=== PATIENT | male | born 1960 | race Caucasian/White ===

== ENCOUNTER → 2018-11-20 12:25 | Outpatient (CLI) | payer OTHER, SELFPAY ==
[2018-09-09 14:01] VITALS: BMI 31.0
[2018-11-20 13:02] LABS: Absolute Lymphocyte Count 8.08 X10^3/uL (0.83-4.51); Absolute Neutrophil Count 4.7 X10^3/uL (2.0-7.7); Basophil# 0.16 X10^3/uL; Eosinophil# 0.98 X10^3/uL; Eosinophils% 6.4 % (0-5); Hematocrit 40.1 % (40-54); Hemoglobin 13.7 g/dL (13.0-16.5); Lymphocyte # 8.08 X10^3/ul (4.0); Lymphocyte % 52.5 % (19-41); Mean Corp Hgb Conc 34.2 g/dL (32-36); Mean Corpuscular Hgb 30.9 pg (27.0-32.0); Mean Corpuscular Volume 90.3 fL (80-94); Monocyte# 1.45 X10^3/uL; Monocyte% 9.4 % (0-10); NRBC Flagged by Analyzer 0 % (0-5); Neutrophil # 4.68 X10^3/uL (2.7-7.7); Neutrophil % 30.4 % (47-70); POSITIVE DIFFERENTIAL YES; POSITIVE MORPHOLOGY YES; Platelet Count 406 K/mm3 (150-450); RBC Distribution Width CV 12.6 % (11.6-14.6); RBC Distribution Width SD 41.8 fl (35.1-43.9); Red Blood Count 4.44 M/mm3 (4.6-6.2); White Blood Count 15.4 K/mm3 (4.4-11.0)
[2018-11-20 13:03] LABS: Differential Indicated SCAN CRITERIA MET
[2018-11-20 13:30] LABS: Microalbumin,Random Urine 5.9 mg/L (NO RANGE EST.); Microalbumin:Creatinine Ratio 11.8 mg/g CRE (<30 mg/g CRE)
[2018-11-20 13:52] LABS: Platelet Estimate ADEQUATE (ADEQ); Reactive Lymphocyte 1+
[2018-11-20 13:53] LABS: Red Cell Morphology NORM C+C NORMAL (NORM C&C)
[2018-11-20 14:02] LABS: ALB/GLOB Ratio 1.1 RATIO (0.9-2.4); AST(SGOT) 19 U/L (15-37); Alanine Aminotransfer ALT/SGPT 32 U/L (16-61); Albumin, Serum 3.8 g/dL (3.2-5.0); Alkaline Phosphatase 87 U/L (45-117); Anion Gap 8 (5-15); BUN 13 mg/dL (7-18); BUN/Creat Ratio 16.4 RATIO (10-20); Calcium,Total 9.2 mg/dL (8.5-10.1); Chloride 105 mmol/L (98-107); Cholesterol 281 mg/dL (200); Creatinine, Serum 0.79 mg/dL (0.70-1.30); EST Glomerular Filtration Rate 107 mL/min (>60); Est Glom Filt Rate - Afr Amer 129 mL/min (>60); Globulin 3.6 g/dL (2.2-4.2); Glucose 159 mg/dL (74-106); High Density Lipoprotein 44 mg/dL; Potassium 3.8 mmol/L (3.5-5.1); Protein, Total 7.4 g/dL (6.4-8.2); Rheumatoid Factor < 10.0 IU/mL (<15); Sodium Level 138 mmol/L (136-145); Triglycerides 668 mg/dL
[2018-11-23 12:17] LABS: Pathologist Review Reviewed
== END ==
PROVIDERS: Family Provider Internal Medicine; PCP Internal Medicine; Referring Provider Internal Medicine; Visit Provider Internal Medicine
DX: E78.5 Hyperlipidemia, unspecified (principal); E11.9 Type 2 diabetes mellitus without complications; I10 Essential (primary) hypertension; M19.90 Unspecified osteoarthritis, unspecified site
CPT/HCPCS: 36415; 80053; 80061; 82043; 82570; 85025; 86431

== ENCOUNTER 2018-11-21 06:05 | Emergency (ER) | payer OTHER, MEDICAID, SELFPAY ==
[2018-09-09 14:01] VITALS: BMI 31.0
[2018-11-21 06:07] VITALS: BP 136/63; PULSE 100; RESP 20; TEMP 36.6; O2SAT 93; BMI 30.1
[2018-11-21] MEDS: predniSONE 20 MG Tablet 60 MG PO (06:47)
[2018-11-21] MEDS: DiphenhydrAMINE 50 MG/ML Syringe 25 MG IV (06:47)
[2018-11-21 07:07] VITALS: BP 148/80; RESP 16; O2SAT 97
--- NOTE | 2018-11-21 07:19 | ED.DCSUM_ITS ---
- ER Visit Summary Date of Service: 11/21/18 Chief Complaint: Allergic reaction History of Present Illness: The patient is a 58 M who presents with an allergic reaction that began this morning. Patient states he woke up with hives on his arms and legs. Patient states he felt like his throat was swelling. states patient was having some difficulty talking because of the swelling. Patient states she is starting to feel better but still has a lot of itching and hives. Patient denies any shortness of breath at the present time. Patient denies any difficulty swallowing at the present time. Patient does admit to a mild sore throat. Patient states he did break out into a sweat when he woke up today. Patient states he did eat new pizza recently but denies any other new exposures. Physical Examination: Vital signs are stable. Patient is afebrile. Patient is in no acute distress. Oral mucosa is pink and moist. Oropharynx is clear. Airway is patent. Neck is supple. Trachea is midline. There is no JVD noted. Heart was regular rate and rhythm. Lungs are clear and equal bilaterally. Abdomen is soft and nontender. Skin is warm dry. There is diffuse urticaria noted. There are no vesicles or pustules noted. There are no petechia noted. There are no mucous membrane lesions. Cranial nerves II through XII are intact. There are no focal motor or sensory deficits noted. Emergency Department Course and Treatment: Patient was given Benadryl, Pepcid, and Solu-Medrol here. Patient is feeling better on reevaluation. Patient was given a prescription for prednisone. Patient was instructed to use Benadryl as needed for any itching. Patient was instructed to follow-up with his primary care physician in 5 to 7 days. Patient understood and was agreeable with the plan. All questions were answered. Disposition: Discharge home Impression: Urticaria This note was generated with [employer] dictation software. It may contain incorrect words, spelling, and punctuation that were not noted in review of the chart prior to signing ED Disposition - Plan for ED Patient: Disposition: Home or Assisted Living Diagnosis: Urticaria Instructions: ALLERGIC REACTION, Other (General) Prescriptions: predniSONE tablet 60 mg PO DAILY #15 tab Prescription Printed Referrals: Iftikhar Carlos MD [Primary Care Provider] - 5-7 Days
== END 2018-11-21 07:55 | disposition home or self-care (01) ==
PROVIDERS: Emergency Provider Emergency Medicine; Family Provider Internal Medicine; PCP Internal Medicine
DX: L50.0 Allergic urticaria (principal); E11.9 Type 2 diabetes mellitus without complications; I10 Essential (primary) hypertension; Z79.899 Other long term (current) drug therapy; Z79.84 Long term (current) use of oral hypoglycemic drugs
CPT/HCPCS: 96365; 96375; 99285; J7030; A4216; J3490

== ENCOUNTER → 2018-12-30 13:59 | Outpatient (CLI) | payer OTHER, SELFPAY ==
[2018-12-30 08:04] VITALS: BMI 29.8
--- NOTE | 2018-12-30 14:00 | RAD_ITS ---
STUDY: X-RAY - LEFT HAND REASON FOR EXAM: Male, 58 years old. Fifth finger pain TECHNIQUE: 3 view(s) of the hand. COMPARISON: None. FINDINGS: Normal radiocarpal articulation. Normal distal radioulnar joint. Normal visualized carpal bones. Normal carpal articulations Normal carpometacarpal articulation of the thumb. Normal second through fifth carpometacarpal joints. Normal metacarpi. Normal metacarpophalangeal joint of the thumb. Normal interphalangeal joint of the thumb. Normal proximal and distal phalanges of the thumb. Normal metacarpophalangeal joints of the second through fifth fingers. Normal proximal and distal interphalangeal joints of the second through fifth fingers. Normal phalanges of the second through fifth fingers. The soft tissue structures are unremarkable. RAD/Hand Min 3 Views IMPRESSION: Normal x-ray examination of the hand. Electronically Signed: Arcenio Lamar MD at 22:43 EDT , Service support ,
--- NOTE | 2018-12-30 14:00 | RAD_ITS ---
STUDY: X-RAY - RIGHT HAND REASON FOR EXAM: Pain extending into fifth digit. TECHNIQUE: 3 view(s) of the hand. COMPARISON: None. FINDINGS: Normal radiocarpal articulation. Normal distal radioulnar joint. Normal visualized carpal bones. Normal carpal articulations Normal carpometacarpal articulation of the thumb. Normal second through fifth carpometacarpal joints. Normal metacarpi. Normal metacarpophalangeal joint of the thumb. Normal interphalangeal joint of the thumb. Normal proximal and distal phalanges of the thumb. Normal metacarpophalangeal joints of the second through fifth fingers. There is joint space narrowing of the fifth distal interphalangeal joint. Normal phalanges of the second through fifth fingers. The soft tissue structures are unremarkable. 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 Electronically Signed: Andrew Sosa MD at 15:35 EDT Tel , Service support ,
== END ==
PROVIDERS: Family Provider Internal Medicine; PCP Internal Medicine; Referring Provider Orthopaedic Surgery; Visit Provider Orthopaedic Surgery
DX: M79.641 Pain in right hand (principal); M79.642 Pain in left hand
CPT/HCPCS: 73130

== ENCOUNTER → 2019-01-06 15:32 | Outpatient (CLI) | payer OTHER, SELFPAY ==
[2019-01-06 12:36] VITALS: BMI 28.0
--- NOTE | 2019-01-06 15:37 | VDLE_ITS ---
Reason For Study: LLE swelling RIGHT LEFT CFV is compressible, spontaneous, phasic, GSV is normal. competent and demonstrates normal CFV is compressible, spontaneous, phasic, augmentation. competent, and demonstrates normal Procedure augmentation. Exam performed in department. FV is compressible, spontaneous, phasic, The exam was diagnostic. competent and demonstrates normal A preliminary report was called and/or faxed augmentation. to Dr. Fairbanks @ 4:00 pm. POP V is compressible, spontaneous, phasic, competent and demonstrates normal augmentation. T/P Trunk is compressible. PTV is compressible. LT PerV is compressible. Interpretation Summary Deep veins of the left lower extremity are patent and compressible segmentally. There is no evidence of left lower extremity deep vein thrombosis. Valvular competence appears intact within the proximal deep venous system on the left . The left great saphenous vein appears patent and compressible segmentally. Ordering Physician: Pantera Fairbanks Referring Physician: Iftikhar Carlos Performed By: Lynnette Wilson, RDCS, RVT
== END ==
PROVIDERS: Family Provider Internal Medicine; PCP Internal Medicine; Referring Provider Internal Medicine Cardiovascular Disease; Visit Provider Internal Medicine Cardiovascular Disease
DX: I82.409 Acute embolism and thrombosis of unspecified deep veins of unspecified lower extremity (principal)
CPT/HCPCS: 93971

== ENCOUNTER → 2019-02-08 14:29 | Outpatient (CLI) | payer OTHER, SELFPAY ==
[2019-01-06 12:36] VITALS: BMI 28.0
--- NOTE | 2019-02-08 14:51 | RAD_ITS ---
STUDY: X-RAY - PELVIS REASON FOR EXAM: Male, 58 years old. Inflammatory polyarthropathy TECHNIQUE: One view of the pelvis was obtained. COMPARISON: None. FINDINGS: There is a non-specific bowel gas pattern. Normal visualized soft tissue structures. Normal bilateral iliac wings, sacroiliac joints and visualized sacrum. No erosion or sclerosis of the sacroiliac joints. Normal visualized bilateral superior and inferior pubic rami. Normal pubic symphysis. Normal ischial tuberosities. Normal visualized right femoral head. There is cortical sclerosis with suspicion for early sub-cortical cyst formation of the right acetabulum. Normal right hip joint. Normal visualized left femoral head. There is cortical sclerosis with suspicion for early sub-cortical cyst formation of the left acetabulum. Normal left hip joint. RAD/Pelvis 1 or 2 Views IMPRESSION: Early subchondral cyst formation along the bilateral acetabula suspected. No erosive arthropathy detected. Electronically Signed: Asia Harrington MD at 4:38 EST , Service support ,
[2019-02-08 15:36] LABS: Erythrocyte Sedimentation Rate 7 mm/hr (0-20)
[2019-02-08 15:38] LABS: Absolute Neutrophil Count 5.2 X10^3/uL (2.0-7.7); Basophil# 0.13 X10^3/uL; Basophil% 0.9 % (0-1); Eosinophils% 6.5 % (0-5); Hematocrit 41.3 % (40-54); Hemoglobin 13.8 g/dL (13.0-16.5); Lymphocyte % 45.7 % (19-41); Mean Corp Hgb Conc 33.4 g/dL (32-36); Mean Corpuscular Hgb 30.7 pg (27.0-32.0); Mean Platelet Vol. 10.9 fl (6.2-12.0); Monocyte# 1.24 X10^3/uL; NRBC Flagged by Analyzer 0 % (0-5); Neutrophil # 5.19 X10^3/uL (2.7-7.7); Neutrophil % 37.8 % (47-70); POSITIVE DIFFERENTIAL YES; Platelet Count 419 K/mm3 (150-450); RBC Distribution Width CV 13.3 % (11.6-14.6); RBC Distribution Width SD 45.2 fl (35.1-43.9); Red Blood Count 4.49 M/mm3 (4.6-6.2); White Blood Count 13.8 K/mm3 (4.4-11.0)
[2019-02-08 15:52] LABS: Differential Indicated SCAN CRITERIA MET
[2019-02-08 16:17] LABS: ALB/GLOB Ratio 1.1 RATIO (0.9-2.4); AST(SGOT) 16 U/L (15-37); Alanine Aminotransfer ALT/SGPT 24 U/L (16-61); Albumin, Serum 3.9 g/dL (3.2-5.0); Alkaline Phosphatase 79 U/L (45-117); Anion Gap 7 (5-15); BUN 13 mg/dL (7-18); BUN/Creat Ratio 14.9 RATIO (10-20); CRP < 2.90 mg/L (0.0-3.0); Calcium,Total 9.3 mg/dL (8.5-10.1); Chloride 104 mmol/L (98-107); Creatinine, Serum 0.87 mg/dL (0.70-1.30); EST Glomerular Filtration Rate 96 mL/min (>60); Est Glom Filt Rate - Afr Amer 116 mL/min (>60); Globulin 3.4 g/dL (2.2-4.2); Glucose 117 mg/dL (74-106); Potassium 3.7 mmol/L (3.5-5.1); Protein, Total 7.3 g/dL (6.4-8.2); Rheumatoid Factor < 10.0 IU/mL (<15); Sodium Level 139 mmol/L (136-145)
[2019-02-08 18:07] LABS: Acanthocytes 2+; Platelet Estimate ADEQUATE (ADEQ); Reactive Lymphocyte 1+; Red Cell Morphology N CHROM NORMAL (NORM C&C); Smudge Cells 1+
[2019-02-09 12:02] LABS: Pathologist Review Reviewed
[2019-02-09 16:26] LABS: Hepatitis B Surface Antibody Reactive; Hepatitis B Surface Antigen Non-Reactive (Nonreactive); Hepatitis C Antibody Non-Reactive (Nonreactive)
[2019-02-15 17:29] LABS: CCP IgG Antibodies 8 units (0-19); HLA B27 Negative (.); Hepatitis B Core AB IgM Negative (Negative)
== END ==
PROVIDERS: Family Provider Internal Medicine; PCP Internal Medicine; Referring Provider Internal Medicine Rheumatology; Visit Provider Internal Medicine Rheumatology
DX: M06.4 Inflammatory polyarthropathy (principal); M65.341 Trigger finger, right ring finger; E11.9 Type 2 diabetes mellitus without complications; E78.5 Hyperlipidemia, unspecified; I10 Essential (primary) hypertension; I34.0 Nonrheumatic mitral (valve) insufficiency; Z86.2 Personal history of diseases of the blood and blood-forming organs and certain disorders involving the immune mechanism; Z86.73 Personal history of transient ischemic attack (TIA), and cerebral infarction without residual deficits
CPT/HCPCS: 36415; 72170; 80053; 81374; 85025; 85652; 86140; 86200; 86431; 86705; 86706; 86803; 87340

== ENCOUNTER → 2019-02-17 13:48 | Outpatient (CLI) | payer OTHER, SELFPAY ==
[2019-01-06 12:36] VITALS: BMI 28.0
--- NOTE | 2019-02-17 13:49 | ECHOCS_ITS ---
Reason For Study: MURMUR Procedure This was a 2D Doppler, Color Flow transthoracic echocardiogram. Exam performed in department. Left Ventricle Normal LV size. Left ventricular systolic function is normal. The estimated ejection fraction is 55 %. Stage 1 diastolic dysfunction. No regional wall motion abnormalities noted. Right Ventricle Normal RV size. Normal systolic function. Atria Normal left atrium. Normal right atrium. Bubble contrast study negative for right to left interatrial shunt. Mitral Valve Normal mitral valve. Mild (1+) eccentric mitral valve insufficiency. Tricuspid Valve Normal tricuspid valve. Aortic Valve Normal aortic valve. Trisinus/trileaflet aortic valve. Pulmonic Valve Normal pulmonic valve. Great Vessels Normal aortic root. The pulmonary artery is normal size. Normal inferior vena cava. Pericardium/Pleural No pericardial effusion. Medication 22 gauge I.V. with prn adaptor inserted into right arm. Performed a rapid injection of agitated mix of 9 cc saline and 1cc air to assess for atrial septal defect. Diluted definity 4ml given slow IV push to enhance endocardial definition. MMode/2D Measurements & Calculations LVIDd: 5.1 cm IVSd: 0.89 cm Ao root diam: 3.2 cm LVIDs: 3.5 cm LVPWd: 0.95 cm RVDd: 3.3 cm FS: 30.6 % LAV(MOD-bp): 39.2 ml LVAd ap4: 39.8 cm2 SV(MOD-sp4): 86.9 ml LAV(MOD-bp) Indexed: 19.7 ml/m2 EDV(MOD-sp4): 147.4 ml LAV(MOD-sp2): 37.6 ml EDV(sp4-el): 153.7 ml LAV(MOD-sp4): 37.8 ml LVAs ap4: 22.5 cm2 ESV(MOD-sp4): 60.6 ml ESV(sp4-el): 61.2 ml EF(MOD-sp4): 58.9 % EF(sp4-el): 60.2 % SV(sp4-el): 92.4 ml LA A4 area: 15.4 cm2 LA dimension(2D): 3.6 cm RA A4 area: 14.2 cm2 Time Measurements MV dec time: 0.23 sec Doppler Measurements & Calculations MV E max james: 83.6 cm/sec Lat Peak E' James: 11.1 cm/sec Med Peak E' James: 7.7 cm/sec MV A max james: 94.4 cm/sec E/E' lat: 7.5 E/E' med: 10.9 MV E/A: 0.89 Ao V2 max: 139.3 cm/sec LV V1 max: 89.4 cm/sec PA V2 max: 98.6 cm/sec Ao max P.8 mmHg LV V1 max P.2 mmHg PI end-d james: 90.9 cm/sec Interpretation Summary Normal LV size. Left ventricular systolic function is normal. The estimated ejection fraction is 55 %. Stage 1 diastolic dysfunction. Bubble contrast study negative for right to left interatrial shunt. Structurally normal valves. Ordering Physician: Pantera Fairbanks Referring Physician: RINKU KIDD Performed By: Kaci Kidd RDCS
== END ==
PROVIDERS: Family Provider Internal Medicine; PCP Internal Medicine; Referring Provider Internal Medicine Cardiovascular Disease; Visit Provider Internal Medicine Cardiovascular Disease
DX: I10 Essential (primary) hypertension (principal)
CPT/HCPCS: 93306; Q9957; A4216; C8929

== ENCOUNTER → 2019-04-20 14:34 | Outpatient (CLI) | payer OTHER, SELFPAY ==
[2019-03-18 14:32] VITALS: BMI 28.0
== END ==
PROVIDERS: PCP Internal Medicine; Referring Provider Internal Medicine Rheumatology; Visit Provider Internal Medicine Rheumatology
DX: M06.4 Inflammatory polyarthropathy (principal); Z79.899 Other long term (current) drug therapy; M65.341 Trigger finger, right ring finger; E11.9 Type 2 diabetes mellitus without complications; E78.5 Hyperlipidemia, unspecified; I10 Essential (primary) hypertension; I34.0 Nonrheumatic mitral (valve) insufficiency; Z86.73 Personal history of transient ischemic attack (TIA), and cerebral infarction without residual deficits; Z86.2 Personal history of diseases of the blood and blood-forming organs and certain disorders involving the immune mechanism

== ENCOUNTER → 2019-04-20 14:47 | Outpatient (CLI) | payer OTHER, SELFPAY ==
[2019-03-18 14:32] VITALS: BMI 28.0
[2019-04-20 15:57] LABS: Absolute Lymphocyte Count 6.06 X10^3/uL (0.83-4.51); Absolute Neutrophil Count 6.9 X10^3/uL (2.0-7.7); Basophil# 0.12 X10^3/uL; Basophil% 0.8 % (0-1); Eosinophil# 0.55 X10^3/uL; Eosinophils% 3.7 % (0-5); Hematocrit 39.8 % (40-54); Hemoglobin 13.3 g/dL (13.0-16.5); Lymphocyte # 6.06 X10^3/ul (4.0); Lymphocyte % 40.7 % (19-41); Mean Corp Hgb Conc 33.4 g/dL (32-36); Mean Corpuscular Hgb 30.9 pg (27.0-32.0); Mean Corpuscular Volume 92.3 fL (80-94); Mean Platelet Vol. 11.3 fl (6.2-12.0); Monocyte# 1.23 X10^3/uL; Monocyte% 8.3 % (0-10); NRBC Flagged by Analyzer 0 % (0-5); Neutrophil # 6.88 X10^3/uL (2.7-7.7); Neutrophil % 46.2 % (47-70); POSITIVE DIFFERENTIAL YES; Platelet Count 369 K/mm3 (150-450); RBC Distribution Width CV 13.2 % (11.6-14.6); RBC Distribution Width SD 45.1 fl (35.1-43.9); Red Blood Count 4.31 M/mm3 (4.6-6.2); White Blood Count 14.9 K/mm3 (4.4-11.0)
[2019-04-20 16:00] LABS: Differential Indicated SCAN CRITERIA MET
[2019-04-20 16:30] LABS: Differential Comment SCANNED
[2019-04-20 16:39] LABS: ALB/GLOB Ratio 1.1 RATIO (0.9-2.4); AST(SGOT) 15 U/L (15-37); Alanine Aminotransfer ALT/SGPT 27 U/L (16-61); Albumin, Serum 3.8 g/dL (3.2-5.0); Alkaline Phosphatase 73 U/L (45-117); Anion Gap 6 (5-15); BUN 16 mg/dL (7-18); Calcium,Total 9.2 mg/dL (8.5-10.1); Chloride 104 mmol/L (98-107); Creatinine, Serum 1.14 mg/dL (0.70-1.30); EST Glomerular Filtration Rate 70 mL/min (>60); Est Glom Filt Rate - Afr Amer 85 mL/min (>60); Globulin 3.5 g/dL (2.2-4.2); Glucose 157 mg/dL (74-106); Protein, Total 7.3 g/dL (6.4-8.2); Sodium Level 138 mmol/L (136-145)
== END ==
PROVIDERS: PCP Internal Medicine; Referring Provider Internal Medicine Rheumatology; Visit Provider Internal Medicine Rheumatology
DX: M06.4 Inflammatory polyarthropathy (principal); Z79.899 Other long term (current) drug therapy; M65.341 Trigger finger, right ring finger; E11.9 Type 2 diabetes mellitus without complications; E78.5 Hyperlipidemia, unspecified; I10 Essential (primary) hypertension; I34.0 Nonrheumatic mitral (valve) insufficiency; Z86.73 Personal history of transient ischemic attack (TIA), and cerebral infarction without residual deficits; Z86.2 Personal history of diseases of the blood and blood-forming organs and certain disorders involving the immune mechanism
CPT/HCPCS: 36415; 80053; 85025

== ENCOUNTER 2019-05-16 20:06 | Emergency (ER) | payer OTHER, SELFPAY ==
[2019-03-18 14:32] VITALS: BMI 28.0
[2019-05-16 20:08] VITALS: BP 166/76; PULSE 86; RESP 18; TEMP 36.8; O2SAT 98; BMI 28.7
[2019-05-16 20:22] VITALS: BMI 28.7
[2019-05-16 20:23] VITALS: BP 163/81; PULSE 84; RESP 16; O2SAT 94
--- NOTE | 2019-05-16 20:40 | CT_ITS ---
STUDY: CT BRAIN WITHOUT CONTRAST REASON FOR EXAM: Male, 58 years old. TIA/RT HAND NUMB AND DIFFICULTY WITH SPEECH AT 2PM TODAY. Resolved now but still has HUSSEIN. Prior TIA RADIATION DOSAGE (If Supplied By Facility): CTDIvol = ( 44.99 ) mGy, DLP = ( 829.85 ) mGycm TECHNIQUE: Transaxial CT imaging of the brain was performed without administration of intravenous contrast material. Individualized dose optimization techniques were used for this CT. COMPARISON: No relevant priors. FINDINGS: Normal soft tissue structures. Normal calvarium. Normal size ventricles and extra-axial spaces for the patient''s age. Normal white matter tracts of the cerebral hemispheres. Normal basal ganglia and thalami. Normal brainstem. Normal cerebellum. There is no intracranial hemorrhage. There are no findings of an acute ischemic infarction. There is mucoperiosteal inflammatory disease of the paranasal sinuses consistent with moderate chronic sinusitis. CT/Brain/Head without Contrast IMPRESSION: Normal unenhanced CT scan of the brain. Electronically Signed: Darrell Guzman MD at 21:27 EDT , Service support ,
--- NOTE | 2019-05-16 20:40 | EKG12_ITS ---
Test Reason : ROSALIE Blood Pressure : / mmHG Vent. Rate : 081 BPM Atrial Rate : 081 BPM P-R Int : 164 ms QRS Dur : 100 ms QT Int : 394 ms P-R-T Axes : 050 005 031 degrees QTc Int : 457 ms Normal sinus rhythm Minimal voltage criteria for LVH, may be normal variant Borderline ECG Confirmed by SHARA DE LEON, BRANDEN ([id number]), editorial manager MARIBELL ASTORGA ([id number]) on 05/17/2019 3:24:26 PM Referred By: MR Confirmed By:BRANDEN OLMEDO MD
[2019-05-16 20:56] LABS: Absolute Lymphocyte Count 9.38 X10^3/uL (0.83-4.51); Absolute Neutrophil Count 6.2 X10^3/uL (2.0-7.7); Basophil# 0.16 X10^3/uL; Basophil% 0.9 % (0-1); Eosinophil# 0.98 X10^3/uL; Eosinophils% 5.3 % (0-5); Hemoglobin 14.1 g/dL (13.0-16.5); Lymphocyte # 9.38 X10^3/ul (4.0); Lymphocyte % 50.4 % (19-41); Mean Corp Hgb Conc 36.2 g/dL (32-36); Mean Corpuscular Hgb 33.6 pg (27.0-32.0); Mean Corpuscular Volume 92.9 fL (80-94); Monocyte# 1.84 X10^3/uL; Monocyte% 9.9 % (0-10); NRBC Flagged by Analyzer 0.1 % (0-5); Neutrophil # 6.21 X10^3/uL (2.7-7.7); Neutrophil % 33.3 % (47-70); POSITIVE DIFFERENTIAL YES; POSITIVE MORPHOLOGY YES; Platelet Count 341 K/mm3 (150-450); RBC Distribution Width CV 13.7 % (11.6-14.6); White Blood Count 18.6 K/mm3 (4.4-11.0)
--- NOTE | 2019-05-16 21:01 | ED.RN ---
NO OLD EKGS IN MUSE
[2019-05-16 21:05] LABS: International Normalized Ratio 0.9; Partial Thromboplast Time 28.5 Seconds (24.1-36.2); Prothrombin Time (Protime)PT. 12.4 SECONDS (11.7-14.9)
[2019-05-16 21:07] LABS: Differential Indicated SCAN CRITERIA MET
--- NOTE | 2019-05-16 21:08 | ED.DCSUM_ITS ---
History of Present Illness Chief Complaint: Neuro S/Sx Narrative: Patient presenting secondary to symptomatology of a TIA. Patient reports that he had a history of having a line around 2 years ago or so. He reports that at about 2 PM he had onset of right hand numbness. This was followed by feelings of expressive a aphasia as well as a headache. Patient reports that the headache did come on somewhat suddenly, but was in the most severe headache of his life. He reports that he went to bed, slept for 3 hours, when he woke up the symptoms of speech difficulty and numbness had resolved but he reports that he is still having a mild headache. Patient denies any visual changes. Denies any leg numbness or weakness. Past Medical History - Allergies and Home Meds Allergies/Adverse Reactions: Allergies pneumococcal vaccine [From Pneumovax 23] Allergy (Intermediate, Verified 05/16/19 20:10) Rash & Swelling Primary Care Physician: Iftikhar Carlos MD [Primary Care Provider] - Past Medical History: - - Hypertension, hyperlipidemia, diabetes, past history of TIA Smoking Status: Never smoker Review of Systems All systems negative except as indicated General: Denies: Chills, Fever, Sweats Eyes: Denies: Visual changes - bilaterally, Diplopia ENT: Denies: Rhinorrhea, Sore throat Cardiovascular: Denies: Chest pain, Palpitations Respiratory: Denies: Dyspnea, Cough, Dyspnea on exertion Gastrointestinal: Denies: Abdominal pain, Nausea, Vomiting, Diarrhea, Melena, Hematochezia Genitourinary: Denies: Dysuria, Hematuria, Frequency Musculoskeletal: Denies: Back pain, Extremity Pain Skin: Denies: Rash, Wounds Neurological: Reports: Headache, Parasthesia, - - Speech difficulty STROKE Vital Signs/Narrative: Vital Signs Temp Pulse Resp BP Pulse Ox 05/16/19 20:23 84 16 163/81 H 94 05/16/19 20:08 98.3 F 86 18 166/76 H 98 Inital Vital Signs reviewed: Yes General: Well nourished, Well developed Head: Normocephalic, Atraumatic Eyes: Perrl, - - Slightly delayed tracking of the left eye with cardinal gazes which is at the patient's baseline per the patient and family ENT: Moist mucous membranes, No rhinorrhea Neck: Supple, Nontender Cardiovascular: Regular rate, Regular rhythm, No murmurs Respiratory: No distress, CTA bilaterally, Chest nontender Abdomen: Soft, Nontender, Nondistended, Normal bowel sounds Back: Nontender, Normal Inspection Extremities: Nontender, No edema Skin: Normal color, No rash Neurological: Alert, Oriented x3, Cranial nerves II-XII grossly intact, Normal Strength, Normal Sensation, - - NIH stroke scale is 0 Psychological: Normal affect Diagnostic/Tx/Re-eval Chest X-Ray - ED: 2 View, Read by ED Physician, Read by Radiologist, No Acute Disease - EKG Initial EKG Interpretation: - - Sinus rhythm of 81 with LVH, isoelectric ST segments normal T waves no evidence of acute ischemia or arrhythmia - Medical Decision Making Patient presented secondary to a headache and neurologic changes. Patient complained of his headache being relatively sudden in onset but did not really seem like a thunderclap headache I do not feel that work-up for subarachnoid hemorrhage is indicated. He did complain of TIA-like symptoms, so TIA work-up was obtained. EKG demonstrates no evidence of ischemic or arrhythmic signs. CBC chemistry and troponin show only evidence of some hyperglycemia. CT imaging of the brain shows no evidence of acute pathology. Patient has been symptom- free in the emergency department. Patient's ABCD 2 risk score is a 3 making him in the low risk category. He is already on blood pressure, diabetes, and cholesterol medications. I will add a aspirin to his daily regimen. I believe that he is appropriate for outpatient work-up of this. Patient and I had a prolonged discussion about this, he is comfortable with this disposition. Patient was discharged in stable condition. ED Disposition - Plan for ED Patient: Disposition: Home or Assisted Living Diagnosis: Transient ischemic attack (TIA) Instructions: T.I.A.: Transient Ischemic Attack Prescriptions: Aspirin [Aspirin, Baby] 81 mg PO DAILY@0800 #30 tab.chew Prescription Printed Referrals: Iftikhar Carlos MD [Primary Care Provider] - 3-5 Days
[2019-05-16 21:27] LABS: Anion Gap 7 (5-15); BUN 17 mg/dL (7-18); BUN/Creat Ratio 18.1 RATIO (10-20); Chloride 105 mmol/L (98-107); Creatinine, Serum 0.94 mg/dL (0.70-1.30); EST Glomerular Filtration Rate 88 mL/min (>60); Est Glom Filt Rate - Afr Amer 106 mL/min (>60); Glucose 227 mg/dL (74-106); Sodium Level 140 mmol/L (136-145)
[2019-05-16 21:32] LABS: Differential Comment SCANNED
[2019-05-16 21:33] LABS: Atypical Lymphocyte 1+ %
[2019-05-16 21:39] VITALS: BP 144/73; PULSE 72; RESP 11; O2SAT 97
--- NOTE | 2019-05-16 21:40 | RAD_ITS ---
HISTORY:ABOUT 2PM TODAY HIS R HAND WENT NUMB, AND SPEECH WAS HAVING DIFFICULTY SPEAKING. WENT TO BED, WOKE UP WITH STILL A BAD HAHTN. HX TIA ABOUT 2PM TODAY HIS R HAND WENT NUMB, AND SPEECH WAS HAVING DIFFICULTY SPEAKING. WENT TO BED, WOKE UP WITH STILL A BAD HAHTN. HX TIA EXAMINATION/TECHNIQUE: XR Chest 2 Views: COMPARISON: None FINDINGS: LINES/DEVICES: None. LUNGS: No consolidation, edema or effusion. No pneumothorax. MEDIASTINUM AND CARDIOVASCULAR STRUCTURES: Cardiac silhouette not enlarged. Central airways and mediastinal contour are unremarkable. BONES AND SOFT TISSUES: Unremarkable. RAD/Chest PA and Lateral IMPRESSION: No radiographic evidence of acute cardiopulmonary disease. at 2219 Reported and signed by: Dana Arrington DO Electronically Signed: Dana Arrington DO at 22:18 EDT Tel , Service support ,
[2019-05-16 22:25] VITALS: BP 136/71; PULSE 73; RESP 13; O2SAT 97
[2019-05-16 22:50] VITALS: BP 148/68; PULSE 65; RESP 15; O2SAT 95
[2019-05-18 07:10] LABS: Bedside Glucose 215 mg/dL (70-110)
[2019-05-18 10:18] LABS: Pathologist Review Reviewed
== END 2019-05-16 22:50 | disposition home or self-care (01) ==
PROVIDERS: Emergency Provider Emergency Medicine; PCP Internal Medicine
DX: G45.9 Transient cerebral ischemic attack, unspecified (principal); I10 Essential (primary) hypertension; E78.5 Hyperlipidemia, unspecified; E11.9 Type 2 diabetes mellitus without complications; Z86.73 Personal history of transient ischemic attack (TIA), and cerebral infarction without residual deficits; Z79.82 Long term (current) use of aspirin; Z79.84 Long term (current) use of oral hypoglycemic drugs; Z79.899 Other long term (current) drug therapy
CPT/HCPCS: 70450; 71046; 80048; 82962; 84484; 85025; 85610; 85730; 93005; 99285; A4216

== ENCOUNTER → 2019-05-21 14:34 | Outpatient (CLI) | payer OTHER, SELFPAY ==
[2019-05-21 14:05] VITALS: BMI 28.7
[2019-05-21 15:44] LABS: T4 Free Direct 0.86 ng/dL (0.76-1.46); Thyroid Stim Hormone (TSH) 1.45 uIU/mL (0.358-3.74)
== END ==
PROVIDERS: PCP Internal Medicine; Referring Provider Internal Medicine; Visit Provider Internal Medicine
DX: Z13.29 Encounter for screening for other suspected endocrine disorder (principal)
CPT/HCPCS: 36415; 84439; 84443

== ENCOUNTER → 2019-11-17 15:00 | Outpatient (CLI) | payer OTHER, SELFPAY ==
[2019-11-17 13:32] VITALS: BMI 28.7
--- NOTE | 2019-11-17 15:09 | RAD_ITS ---
STUDY: X-RAY CHEST REASON FOR EXAM: Male, 59 years old. Cough. Fever. TECHNIQUE: Frontal and lateral views of the chest COMPARISON: 05/16/19 FINDINGS: The lungs are clear. There are no pleural effusions. There is no pneumothorax. The heart is normal in size. The visualized osseous structures are within normal limits. RAD/Chest PA and Lateral IMPRESSION: No acute thoracic pathology. Electronically Signed: Dixon Easley, at 16:23 EDT Tel , Service support ,
[2019-11-17 16:38] LABS: Absolute Lymphocyte Count 5.04 X10^3/uL (0.83-4.51); Absolute Neutrophil Count 7.4 X10^3/uL (2.0-7.7); Basophil# 0.05 X10^3/uL; Basophil% 0.3 % (0-1); Eosinophils% 2.7 % (0-5); Hematocrit 40.8 % (40-54); Hemoglobin 13.7 g/dL (13.0-16.5); Lymphocyte # 5.04 X10^3/ul (4.0); Lymphocyte % 34.4 % (19-41); Mean Corp Hgb Conc 33.6 g/dL (32-36); Mean Corpuscular Hgb 31.5 pg (27.0-32.0); Mean Corpuscular Volume 93.8 fL (80-94); Mean Platelet Vol. 11.4 fl (6.2-12.0); Monocyte# 1.71 X10^3/uL; Monocyte% 11.7 % (0-10); NRBC Flagged by Analyzer 0.1 % (0-5); Neutrophil # 7.39 X10^3/uL (2.7-7.7); Neutrophil % 50.6 % (47-70); POSITIVE DIFFERENTIAL YES; Platelet Count 282 K/mm3 (150-450); RBC Distribution Width CV 13.6 % (11.6-14.6); RBC Distribution Width SD 46.8 fl (35.1-43.9); Red Blood Count 4.35 M/mm3 (4.6-6.2); White Blood Count 14.6 K/mm3 (4.4-11.0)
[2019-11-17 16:58] LABS: ALB/GLOB Ratio 0.9 RATIO (0.9-2.4); AST(SGOT) 47 U/L (15-37); Alanine Aminotransfer ALT/SGPT 67 U/L (16-61); Albumin, Serum 3.7 g/dL (3.2-5.0); Alkaline Phosphatase 122 U/L (45-117); Anion Gap 1 (5-15); BUN 12 mg/dL (7-18); BUN/Creat Ratio 13.7 RATIO (10-20); Calcium,Total 9.3 mg/dL (8.5-10.1); Chloride 103 mmol/L (98-107); Creatinine, Serum 0.88 mg/dL (0.70-1.30); EST Glomerular Filtration Rate 95 mL/min (>60); Est Glom Filt Rate - Afr Amer 115 mL/min (>60); Glucose 256 mg/dL (74-106); Potassium 4.4 mmol/L (3.5-5.1); Protein, Total 7.7 g/dL (6.4-8.2); Sodium Level 133 mmol/L (136-145)
[2019-11-17 17:25] LABS: Differential Indicated SCAN CRITERIA MET
[2019-11-19 09:37] LABS: Pathologist Review Reviewed
== END ==
PROVIDERS: PCP Internal Medicine; Referring Provider Nurse Practitioner Family; Visit Provider Nurse Practitioner Family
DX: U07.1 COVID-19 (principal); R05 Cough; R50.9 Fever, unspecified
CPT/HCPCS: 36415; 71046; 80053; 85025

== ENCOUNTER 2020-01-12 10:02 | Emergency (ER) | payer OTHER, SELFPAY ==
[2019-12-21 14:19] VITALS: BMI 29.2
[2020-01-12 10:09] VITALS: BP 176/82; PULSE 84; RESP 16; TEMP 36.2; O2SAT 98; BMI 29.5
[2020-01-12 10:12] VITALS: BMI 29.5
--- NOTE | 2020-01-12 10:19 | ED.VIS.GEN ---
History of Present Illness Chief Complaint: Neuro S/Sx Informant: Patient Onset: Today Context: Gradual Onset Timing: Continuous Narrative: Patient is a 59-year-old male with history of diabetes mellitus, [id number] and TIA presenting with right facial symptoms. He states he woke up with it this morning. States his right side of his face just feels funny. He notes he has some mild dry eye. He feels that he has a facial droop. He notes he did have Covid about 2 months ago and has been very fatigued since. He denies any other complaints at this time. Denies any respiratory symptoms. Nuys any vision changes. No fever or chills. No weakness or change in sensation to his extremities. No speech changes. He notes with his prior TIA he had speech changes. Past Medical History - Allergies and Home Meds Allergies/Adverse Reactions: Allergies pneumococcal vaccine [From Pneumovax 23] Allergy (Intermediate, Verified 01/12/20 10:03) Rash & Swelling james seed Allergy (Verified 01/12/20 10:03) Rash Primary Care Physician: Iftikhar Carlos MD [Primary Care Provider] - Past Medical History: - - DM, TIA, HTN Surgical History: noncontributory Smoking Status: Never smoker Review of Systems General: Denies: Chills, Fever, Sweats Eyes: Denies: Visual changes - bilaterally, Diplopia ENT: Denies: Rhinorrhea, Sore throat Cardiovascular: Denies: Chest pain, Palpitations Respiratory: Denies: Dyspnea, Cough, Dyspnea on exertion Gastrointestinal: Denies: Abdominal pain, Nausea, Vomiting, Diarrhea, Melena, Hematochezia Genitourinary: Denies: Dysuria, Hematuria, Frequency Musculoskeletal: Denies: Back pain, Extremity Pain Skin: Denies: Rash, Wounds Neurological: Reports: - - right sided facial droop. . Denies: Headache, Weakness, Numbness Physical Exam Vital Signs/Narrative: Vital Signs Temp Pulse Resp BP Pulse Ox 01/12/20 10:09 97.2 F L 84 16 176/82 H 98 Inital Vital Signs reviewed: Yes General: Well nourished, Well developed, No Acute Distress Head: Normocephalic, Atraumatic Eyes: Perrl, EOMI, - - Slight lid lag on the right with blinking. no conjunctival injection. ENT: Moist mucous membranes, No rhinorrhea, - - Cerumen impaction on the right, normal TM on the left. Neck: Supple, Nontender Cardiovascular: Regular rate, Regular rhythm, No murmurs Respiratory: No distress, CTA bilaterally, Chest nontender Abdomen: Soft, Nontender, Nondistended, Normal bowel sounds Back: Nontender, Normal Inspection Extremities: Nontender, No edema Skin: Normal color, No rash Neurological: Alert, Oriented x3, Normal Strength, Normal Sensation, Right side facial droop - Involvement of the forehead however subtle. Consistent with the Girard's palsy Psychological: Normal affect, Normal Mood Diagnostic/Tx/Re-eval - Medical Decision Making She is evaluated for 1 day of facial droop. He has no other neurologic symptoms. His presentation is consistent with a Girard's palsy as there is involvement of the eyelid and forehead. It is a more subtle Girard's palsy and patient is counseled and might worsen. He is put on steroids for this. He is counseled that he needs to keep down his blood sugar while being on steroids. He is counseled on eye patching should he have any worsening ocular symptoms using eyedrops. Patient is counseled on signs and symptoms requiring return to the emergency room. Patient verbalizes agreement and understand this plan. Patient discharged home in stable and improved condition. ED Disposition - Plan for ED Patient: Disposition: Home or Assisted Living Diagnosis: Right-sided Girard's palsy Instructions: ED [place] Palsy Prescriptions: Prednisone [Deltasone] 60 mg PO DAILY 6 Days #18 tab Transmission Status: Pending to [facility] Referrals: Iftikhar Carlos MD [Primary Care Provider] - Additional Instructions: Tape your eye closed at night with patch over the eye if you have worsening trouble blinking. The symptoms might progress and become more noticeable over the next day or 2. Return the emergency room if you develop new neurologic symptoms such as speech changes or weakness/numbness on 1 side of the body versus the other.
[2020-01-12] MEDS: predniSONE 20 MG Tablet 60 MG PO (10:35)
[2020-01-12 10:37] VITALS: BP 154/80; PULSE 82; RESP 16; O2SAT 98
== END 2020-01-12 10:56 | disposition home or self-care (01) ==
LOC: ED 10:53
PROVIDERS: Emergency Provider Emergency Medicine; PCP Internal Medicine
DX: G51.0 Bell's palsy (principal); I10 Essential (primary) hypertension; E11.9 Type 2 diabetes mellitus without complications; Z86.73 Personal history of transient ischemic attack (TIA), and cerebral infarction without residual deficits; Z79.82 Long term (current) use of aspirin; Z79.84 Long term (current) use of oral hypoglycemic drugs; Z79.899 Other long term (current) drug therapy
CPT/HCPCS: 99282

== ENCOUNTER 2020-01-25 16:12 | Observation (INO) | payer OTHER, SELFPAY ==
[2020-01-25 16:12] VITALS: BP 186/103; PULSE 89; RESP 16; TEMP 36.2; O2SAT 98; BMI 29.1
--- NOTE | 2020-01-25 16:38 | CT_ITS ---
STUDY: CT BRAIN WITHOUT CONTRAST REASON FOR EXAM: Male, 59 years old. FACIAL DROOP. PRIOR CVA. RECENT COVID RADIATION DOSAGE (If Supplied By Facility): CTDIvol = ( 44.99 ) mGy, DLP = ( 812.98 ) mGycm TECHNIQUE: Transaxial CT imaging of the brain was performed without administration of intravenous contrast material. Individualized dose optimization techniques were used for this CT. COMPARISON: 05/16/2019 FINDINGS: Normal soft tissue structures. Normal calvarium. Normal size ventricles and extra-axial spaces for the patient''s age. Normal white matter tracts of the cerebral hemispheres. Normal basal ganglia and thalami. Normal brainstem. Normal cerebellum. There is no intracranial hemorrhage. There are no findings of an acute ischemic infarction. There is mucoperiosteal inflammatory disease of the paranasal sinuses consistent with moderate chronic sinusitis. Bilateral opacification of the maxillary sinuses, stable. CT/Brain/Head without Contrast IMPRESSION: Normal unenhanced CT scan of the brain. Electronically Signed: Darrell Guzman MD at 17:21 EST , Service support ,
--- NOTE | 2020-01-25 16:47 | ED.DCSUM_ITS ---
- ER Visit Summary Date of Service: 01/25/20 Chief Complaint: Headache, dizziness, facial weakness History of Present Illness: The patient is a 59 M who presents with headache, dizziness, and facial weakness that began 2 days ago. Patient was seen here at that time and was diagnosed with Girard's palsy. Patient was put on steroids. Patient followed up with his primary care physician today. Patient still has the right facial weakness. Patient states that over the past 2 days he has been getting sharp pain in his right cheek, ear, and jaw. Patient also admits to some dizziness. Patient states at times it feels like a spinning sensation and other times it feels like he is lightheaded. Patient states this comes and goes. Patient states that last for approximately 2 minutes. Patient states it is worse when he turns his head to the left. Patient denies any fevers or chills. Patient admits to some intermittent blurred vision in his right eye. Patient admits to nausea but denies any vomiting. Physical Examination: Vital signs are stable. Patient is afebrile. Patient is in no acute distress. Cranial nerves II through XII are intact except for right facial weakness including the forehead. Strength is 5/5 bilateral in the upper and lower extremities. There are no sensory deficits. Oral mucosa is pink and moist. The left tympanic membrane is clear. The right tympanic membrane is occluded with cerumen. Neck is supple. Trachea is midline. There is no JVD or lymphadenopathy. Heart was regular rate and rhythm. Lungs are clear and equal bilaterally. Abdomen is soft. Bowel sounds are normal. There is no tenderness. Extremities are intact. There is no calf tenderness or edema. Test Results: CBC shows a mild leukocytosis of 14.0. Comprehensive metabolic profile was normal. Urinalysis was normal. CT scan of the brain was obtained. There is no acute intracranial abnormality. This was interpreted by the radiologist and reviewed by myself. Emergency Department Course and Treatment: Patient was given a dose of IV acyclovir. Case was discussed with the hospitalist. She will admit the patient to her service. Patient understands and is agreeable with the plan. All questions were answered. Disposition: Admit to hospital Impression: 1. Right facial weakness 2. Suspected [place] Barrett syndrome This note was generated with [employer] software. It may contain incorrect words, spelling, and punctuation that were not noted in review of the chart prior to signing ED Disposition - Plan for ED Patient: Disposition: Acute Care Hospital [facility] Diagnosis: Weakness on right side of face Referrals: Iftikhar Carlos MD [Primary Care Provider] -
[2020-01-25 17:10] LABS: Absolute Lymphocyte Count 5.47 X10^3/uL (0.83-4.51); Absolute Neutrophil Count 6.4 X10^3/uL (2.0-7.7); Basophil% 0.7 % (0-1); Eosinophil# 0.68 X10^3/uL; Eosinophils% 4.8 % (0-5); Hematocrit 41.2 % (40-54); Hemoglobin 14.2 g/dL (13.0-16.5); Lymphocyte # 5.47 X10^3/ul (4.0); Mean Corp Hgb Conc 34.5 g/dL (32-36); Mean Corpuscular Hgb 32.6 pg (27.0-32.0); Mean Corpuscular Volume 94.5 fL (80-94); NRBC Flagged by Analyzer 0 % (0-5); Neutrophil # 6.35 X10^3/uL (2.7-7.7); Neutrophil % 45.2 % (47-70); POSITIVE DIFFERENTIAL YES; POSITIVE MORPHOLOGY YES; Platelet Count 353 K/mm3 (150-450); RBC Distribution Width CV 13.7 % (11.6-14.6); RBC Distribution Width SD 47.3 fl (35.1-43.9); Red Blood Count 4.36 M/mm3 (4.6-6.2)
[2020-01-25 17:25] LABS: Differential Indicated SCAN CRITERIA MET
[2020-01-25 17:35] LABS: ALB/GLOB Ratio 1.1 RATIO (0.9-2.4); AST(SGOT) 13 U/L (15-37); Alanine Aminotransfer ALT/SGPT 29 U/L (16-61); Albumin, Serum 3.7 g/dL (3.2-5.0); Alkaline Phosphatase 85 U/L (45-117); Anion Gap 4 (5-15); BUN 13 mg/dL (7-18); BUN/Creat Ratio 16.2 RATIO (10-20); Calcium,Total 9.1 mg/dL (8.5-10.1); Chloride 103 mmol/L (98-107); EST Glomerular Filtration Rate 105 mL/min (>60); Est Glom Filt Rate - Afr Amer 127 mL/min (>60); Estimated Creatinine Clearance 100.65 ml/min; Globulin 3.3 g/dL (2.2-4.2); Glucose 267 mg/dL (74-106); Potassium 4.3 mmol/L (3.5-5.1); Sodium Level 134 mmol/L (136-145)
[2020-01-25 17:42] LABS: Bacteria 0 SEEN /hpf (None Seen); Mucous, Urine 0 SEEN /hpf (<or=2+); Red Blood Cells-Urine 0 SEEN /hpf (0-5); White Blood Cells 0 SEEN /hpf (0-5)
[2020-01-25 17:45] LABS: Color, Urine Yellow (Yellow); Glucose, Dipstick 1000 mg/dl (Normal); Ketone-Dipstick 5 mg/dl (Negative); Leukocyte Esterase-Dipstick Negative /ul (Negative); Nitrite-Dipstick Negative (Negative); Occult Blood-Urine Negative /ul (Negative); Protein-Dipstick Negative (Negative); Urine Bilirubin Dipstick Negative (Negative); Urine Clarity Sl. Cloudy (Clear); Urine Urobilinogen Normal (Normal)
[2020-01-25 17:57] LABS: Squamous Epithelial Cells - UA 0-5 SEEN /hpf (0-5)
[2020-01-25 17:57] LABS: Differential Comment SCANNED
--- NOTE | 2020-01-25 18:14 | PCM.HP.STD ---
History of Present Illness Date of Admission: 01/25/20 Chief Complaint: Headache and dizziness The patient is a 59 year old M with a past medical history as outlined. He was admitted through the ED on 01/25/2020 with a complaint of headache, dizziness and right-sided facial weakness which started 2 days prior to admission. At the time that symptoms started, he was seen in the ED and diagnosed with Girard's palsy and put on oral steroids. He followed up with his PCP today and still complained of persistent right-sided facial weakness and also said he had been getting sharp pain in his right cheek, ear and jaw. He also admitted to some dizziness and lightheadedness which was episodic and worsen when he turned his face to the left. He also had some intermittent blurred vision in his right eye he also complained of nausea but no vomiting. Review of symptoms otherwise negative. His PCP sent him to the ED to be admitted for probable [place] Barrett syndrome. In the ED, vitals show temperature of 97.2 Fahrenheit with blood pressure of 186/103, pulse rate of 89 and respiratory of 16. He was saturating at 98% on room air. Chemistry essentially unremarkable the glucose was 267; must be noted that patient had been on steroids. CBC showed WBC of 14 and hemoglobin of 14.2 and platelets were 353. CT of the brain done was negative. He is being admitted to be managed for probable [place] Barrett syndrome. He was started on IV acyclovir in the ED. [] Past Medical History Past Medical History (Chronic Problems): Chronic Problems (Last Reviewed 12/21/19 @ 14:12 by Pippa Mejia) Essential (primary) hypertension (Chronic) Hyperlipidemia (Chronic) Type II diabetes mellitus (Chronic) Medical History: Medical History (Last Reviewed 12/21/19 @ 14:12 by Pippa Mejia) Essential (primary) hypertension (Chronic) I10 Hyperlipidemia (Chronic) E78.5 Type II diabetes mellitus (Chronic) E11.9 Rheumatoid arthritis M06.9 Allergies T78.40XA Trigger finger of both hands M65.30 History of TIA (transient ischemic attack) Z86.73 Pneumonia (Resolved) J18.9 Stroke (Resolved) I63.9 Nonrheumatic mitral (valve) insufficiency (Inactive) I34.0 Allergies pneumococcal vaccine [From Pneumovax 23] Allergy (Intermediate, Verified 01/25/20 16:15) Rash & Swelling james seed Allergy (Verified 01/25/20 16:15) Rash Home Medications: Ambulatory Orders Medication Instructions Recorded blood sugar diagnostic See Rx Instructions .ROUTE 09/09/18 .MEDSUPPLY #100 ea blood-glucose meter See Rx Instructions .ROUTE 09/09/18 .MEDSUPPLY #1 ea lancets 28 gauge See Rx Instructions .ROUTE 09/09/18 .MEDSUPPLY #200 ea epinephrine 0.3 mg/0.3 mL 0.3 mg IM Q10-15M #2 ea 11/25/18 injection, auto-injector icosapent ethyl 1 gram capsule 2 g PO BID #120 cap 03/18/19 linagliptin 5 mg tablet 5 mg PO DAILY #90 tab 03/18/19 metoprolol tartrate 25 mg tablet 12.5 mg PO BID #90 tab 03/18/19 Aspirin [Aspirin, Baby] 81 mg PO DAILY@0800 #30 tab.chew 05/16/19 folic acid 1 mg tablet 2 mg PO DAILY #180 tab 05/21/19 sumatriptan succinate 25 mg tablet See Rx Instructions PO .COMPLEX 05/21/19 #10 tab amlodipine 5 mg tablet 5 mg PO DAILY #90 tab 10/04/19 losartan 25 mg tablet 37.5 mg PO DAILY 90 Days #135 tab 12/14/19 metformin 1,000 mg tablet 1,000 mg PO BID #180 tab 12/14/19 glimepiride 4 mg tablet 4 mg PO QAM #90 tab 12/21/19 Epi Pen (for allergic rxn) 0.3 mg IM DAILY PRN 01/25/20 Icosapent Ethyl [Vascepa] 4 gm PO BID 01/25/20 Methotrexate Sodium [Methotrexate] 12.5 mg PO TH 01/25/20 Surgical History: Surgical History (Last Reviewed 12/21/19 @ 14:12 by Pippa Mejia) History of appendectomy Z90.49 2010 History of lymphoid or hematologic neoplasm Z85.79 2012 History of splenectomy Z90.81 1994 History of tonsillectomy Z90.89 Surgical History: noncontributory Psychiatric History: No pertinent psych hx Lives: With Family Smoking Status: Never smoker Alcohol: None Drugs: None - *Family History Maternal Family History: Family History (Last Reviewed 12/21/19 @ 14:12 by Pippa Mejia) Sister Diabetes Hypertension High cholesterol blood clots Brother Myocardial infarction High cholesterol CVA (cerebral vascular accident) Mother Myocardial infarction Hypertension Father High cholesterol CVA (cerebral vascular accident) blood clots Grandmother CVA (cerebral vascular accident) Review of Systems Constitutional: Denies: Chills, Fever, Malaise, Weakness, Weight Change Eyes: Denies: Blurred vision HEENT: Denies: Head Aches, Sinus Congestion, Sinus Drainage Cardiovascular: Denies: Chest Pain, Palpitations Respiratory: Denies: Cough, Shortness of Breath, Shortness of breath at rest, Sputum production Gastrointestinal: Denies: Abdominal Pain, Nausea, Vomiting Genitourinary: Denies: Dysuria Musculoskeletal: Denies: Joint Pain, Joint Tenderness Skin: Denies: Rash, Wounds Neurological: Denies: Numbness, Tingling, Focal weakness Psychiatric: Denies: Anxiety, Depression, Homicidal Ideations, Suicidal Ideations Hematologic/ Lymphatic: Denies: Easy Bruising, Easy Bleeding VTE Information - Inpt Only VTE Present on Admission: No VTE Pharm Prophylaxis ordered?: Yes Patient Problems: Active and Suspected Problems (Last Reviewed 12/21/19 @ 14:12 by Pippa Mejia) Weakness on right side of face (Acute) - Physical Exam Vitals/I&O's: Vital Signs Temp Pulse Resp BP Pulse Ox 97.2 F L 89 16 186/103 H 98 01/25/20 16:12 01/25/20 16:12 01/25/20 16:12 01/25/20 16:12 01/25/20 16:12 Oxygen Delivery Method Room Air Weight: 197 lb 4.97 oz Body Mass Index (BMI) 29.1 Finger Stick Blood Glucose 215 General: Alert, Oriented x3, Cooperative, No apparent distress HEENT: Atraumatic, PERRLA, EOMI, Normocephalic Oral: Moist Mucosa Neck: Supple, No JVD, Negative Carotid Bruits Lungs: Clear to auscultation, Normal air movement, No rhonchi, No wheeze, No rales Cardiovascular: Regular rate, Regular Rhythm, Normal S1, Normal S2, No murmurs Abdomen: Bowel Sounds Present, Soft, Non Tender Extremities: No edema, Capillary Refill Less than 3 Seconds Skin: No rashes, No breakdown Musculoskeletal: No Tenderness to Palpation of Joints or Extremities Lymphatic: No Cervical, Supraclavicular, or Inguinal Adenopathy Neurological: Motor Exam 5/5 strength throughout, - - right complete facial nerve palsy (upper and lower motor facial palsy). CN otherwise grossly intact Psych/Mental Status: Normal Affect, Appropriate, Alert and oriented to time, place, person, mood and affect Laboratory Results 01/25/20 17:00: WBC 14.0 H, RBC 4.36 L, Hgb 14.2, Hct 41.2, MCV 94.5 H, MCH 32.6 H, MCHC 34.5, RDW Std Deviation 47.3 H, RDW Coeff of Linh 13.7, Plt Count 353, MPV 11.0, Immature Gran % (Auto) 0.300, Neut % (Auto) 45.2 L, Lymph % (Auto) 39.0, Curry % (Auto) 10.0, Eos % (Auto) 4.8, Baso % (Auto) 0.7, Absolute Neuts (auto) 6.4, Absolute Lymphs (auto) 5.47 H, Nucleated RBC % 0, Differential Comment SCANNED 01/25/20 17:00: Sodium 134 L, Potassium 4.3, Chloride 103, Carbon Dioxide 27.0, Anion Gap 4 L, BUN 13, Creatinine 0.80, Estim Creat Clear Calc 100.65, Est GFR (MDRD) Af Amer 127, Est GFR (MDRD) Non-Af 105, BUN/Creatinine Ratio 16.2, Glucose 267 H, Calcium 9.1, Total Bilirubin 0.40, AST 13 L, ALT 29, Alkaline Phosphatase 85, Total Protein 7.0, Albumin 3.7, Globulin 3.3, Albumin/Globulin Ratio 1.1 01/25/20 17:35: Urine Color Yellow, Urine Clarity Sl. Cloudy, Urine pH 7.0, Ur Specific [place] 1.010, Urine Protein Negative, Urine Glucose (UA) 1000 H, Urine Ketones 5 H, Urine Occult Blood Negative, Urine Nitrite Negative, Urine Bilirubin Negative, Urine Urobilinogen Normal, Ur Leukocyte Esterase Negative, Urine RBC 0 SEEN, Urine WBC 0 SEEN, Ur Squamous Epith Cells 0-5 SEEN, Urine Bacteria 0 SEEN, Urine Mucus 0 SEEN Diagnostic Data Brain CT 01/25/20 16:38 IMPRESSION: Normal unenhanced CT scan of the brain. Electronically Signed: Darrell Guzman MD at 17:21 EST , Service support , Assessment/Plan All Active Problems (Last Reviewed 12/21/19 @ 14:12 by Pippa Mejia) Weakness on right side of face (Acute) Pneumonia (Resolved) Stroke (Resolved) 59 y/o admitted with a complaint of right sided facial weakness #. 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 Patient also complains of right stabbing pain in his ear, cheek and jaw on the right. Started on IV acyclovir. Will continue. ENT consulted. Continue IV Solu-Medrol. ofr MRI of the brain tomorrow #Benign essential hypertension: Poorly controlled. Blood pressure elevated on admission. On amlodipine and losartan as well as metoprolol. IV hydralazine as needed. #Type 2 diabetes mellitus: On glimepiride and linagliptin as well as metformin. Insulin sliding scale. Accu-Cheks AC at bedtime. #History of rheumatoid arthritis: On methotrexate Hyperlipidemia: On icosapent DVT prophylaxis: Lovenox OBSV E&M: 20689 Initial observation care L2
[2020-01-25 18:16] VITALS: BMI 29.1
[2020-01-25 18:27] VITALS: BMI 29.0
[2020-01-25 18:44] VITALS: BP 128/67; PULSE 70; RESP 18; TEMP 37.1; O2SAT 94
[2020-01-25 19:23] VITALS: BP 163/70; PULSE 79; RESP 18; TEMP 36.4; O2SAT 96
[2020-01-25] MEDS: Insulin Lispro 100 UNIT/ML INSULN.PEN SC (21:53)
[2020-01-25] MEDS: Morphine 2 MG/ML Syringe IV (21:54)
[2020-01-25 22:00] VITALS: PULSE 79
[2020-01-25] MEDS: 0.9% Saline Lock 10 ML Syringe IV (22:00)
[2020-01-25] MEDS: Metoprolol Tartrate 25 MG Tablet 12.5 MG PO (22:00)
[2020-01-25] MEDS: CLARIFY ORDER NOTE (22:04)
[2020-01-25] MEDS: Acyclovir 700 MG in Dextrose 5% 250 ML 264 MG IV (23:16)
[2020-01-26 00:46] LABS: Bedside Glucose 280 mg/dL (70-110)
[2020-01-26 00:51] VITALS: BP 136/64; PULSE 79; RESP 16; TEMP 36.7; O2SAT 93
[2020-01-26] MEDS: 0.9% Saline Lock 10 ML Syringe IV ×3 (01:46→14:07)
[2020-01-26 01:48] VITALS: PULSE 74
[2020-01-26 06:24] VITALS: BP 158/78; PULSE 91; RESP 16; TEMP 36.5; O2SAT 94
[2020-01-26] MEDS: Acyclovir 700 MG in Dextrose 5% 250 ML 264 MG IV ×2 (06:29→14:07)
[2020-01-26] MEDS: Insulin Lispro 100 UNIT/ML INSULN.PEN SC ×2 (06:34→11:39)
[2020-01-26 06:53] LABS: Absolute Lymphocyte Count 2.32 X10^3/uL (0.83-4.51); Basophil# 0.04 X10^3/uL; Basophil% 0.3 % (0-1); Eosinophil# 0.01 X10^3/uL; Eosinophils% 0.1 % (0-5); Hematocrit 41.9 % (40-54); Hemoglobin 14.2 g/dL (13.0-16.5); Lymphocyte # 2.32 X10^3/ul (4.0); Lymphocyte % 17.1 % (19-41); Mean Corp Hgb Conc 33.9 g/dL (32-36); Mean Corpuscular Hgb 31.9 pg (27.0-32.0); Mean Corpuscular Volume 94.2 fL (80-94); Mean Platelet Vol. 11.2 fl (6.2-12.0); Monocyte# 0.08 X10^3/uL; Monocyte% 0.6 % (0-10); NRBC Flagged by Analyzer 0 % (0-5); Neutrophil # 11.04 X10^3/uL (2.7-7.7); Neutrophil % 81.5 % (47-70); Platelet Count 355 K/mm3 (150-450); RBC Distribution Width CV 13.7 % (11.6-14.6); RBC Distribution Width SD 47.2 fl (35.1-43.9); Red Blood Count 4.45 M/mm3 (4.6-6.2); White Blood Count 13.6 K/mm3 (4.4-11.0)
[2020-01-26 07:19] LABS: Anion Gap 8 (5-15); BUN 15 mg/dL (7-18); BUN/Creat Ratio 18.2 RATIO (10-20); Calcium,Total 9.2 mg/dL (8.5-10.1); Chloride 101 mmol/L (98-107); Creatinine, Serum 0.83 mg/dL (0.70-1.30); EST Glomerular Filtration Rate 102 mL/min (>60); Est Glom Filt Rate - Afr Amer 123 mL/min (>60); Estimated Creatinine Clearance 97.01 ml/min; Glucose 329 mg/dL (74-106); Potassium 4.2 mmol/L (3.5-5.1); Sodium Level 132 mmol/L (136-145)
[2020-01-26] MEDS: metFORMIN HCl 1,000 MG Tablet 1000 MG PO (07:53)
[2020-01-26] MEDS: Folic Acid 1 MG Tablet 2 MG PO (07:53)
[2020-01-26] MEDS: Aspirin 81 MG TAB.CHEW PO (07:54)
[2020-01-26] MEDS: Glimepiride 4 MG Tablet PO (07:54)
[2020-01-26 08:58] VITALS: BP 160/83; PULSE 101; RESP 18; TEMP 36.4; O2SAT 98
--- NOTE | 2020-01-26 10:12 | MRI_ITS ---
STUDY: MRI BRAIN WITHOUT CONTRAST REASON FOR EXAM: Male, 59 years old. RIGHT facial droop and pain, vertigo x 2weeks. Questionable [place] Barrett Syndrome TECHNIQUE: Standardized multiplanar fat and water weighted pulse sequences were obtained. COMPARISON: CT 01/25/2020 FINDINGS: Normal size of the ventricles and extra-axial spaces for the patient''s age. Normal white matter tracts of the supratentorial brain. There is no evidence for recent intracranial ischemia or other cause of cytotoxic edema on diffusion weighted imaging (DWI). Normal T2* images of the brain without demonstrated susceptibility artifact. There is no demonstrated hemosiderin stain. Normal bilateral basal ganglia. Normal thalami. There is no extra-axial fluid accumulation. Normal flow voids within the major intracranial circulation suggesting patency by spin echo criteria. Normal sella turcica, pituitary gland, infundibular stalk, optic chiasm and hypothalamus. Normal tectal plate and pineal gland. Normal midbrain, nigel and medulla. Normal cerebellum. Normal basal cisterns. Normal bilateral temporal bones. Normal bilateral internal auditory canals. No demonstrated orbital abnormality, within the constraints of a routine brain study. Fluid-filled x-ray sinuses bilaterally consistent with sinusitis per Normal calvarium and skull base. Normal visualized soft tissue structures. Normal visualized upper cervical spine. MRI/Brain without Contrast IMPRESSION: Normal unenhanced MRI of the brain. Electronically Signed: Amrit Huynh MD at 13:03 EST Tel , Service support ,
[2020-01-26 10:32] VITALS: PULSE 101
[2020-01-26] MEDS: Famotidine 20 MG Tablet PO (10:32)
[2020-01-26] MEDS: Metoprolol Tartrate 25 MG Tablet 12.5 MG PO (10:32)
[2020-01-26] MEDS: Losartan Potassium 25 MG Tablet 37.5 MG PO (10:33)
[2020-01-26] MEDS: LINAGLIPTIN 5 MG TABLET PO (10:34)
[2020-01-26] MEDS: amLODIPine 5 MG Tablet PO (10:34)
[2020-01-26 11:15] LABS: Bedside Glucose 331 mg/dL (70-110)
[2020-01-26 11:45] LABS: Bedside Glucose 383 mg/dL (70-110)
--- NOTE | 2020-01-26 15:38 | DCINST_ITS ---
- Discharge Diagnoses Current Active Problems: Current Active and Chronic Problems (Last Reviewed 12/21/19 @ 14:12 by Pippa Mejia) Weakness on right side of face (Acute) You will use the following diet at home:: Calorie/Carbohydrate Controlled (specify 1200, 1400, etc) - 1800 molina Your food should be the consistency of: Regular Your liquids should be the consistency of: Regular/Thin Discharge Activity: Return to Normal Activity Weight Bearing Status: Full weight bearing Allergies/Adverse Reactions: Allergies pneumococcal vaccine [From Pneumovax 23] Allergy (Intermediate, Verified 01/08 09/26 16:15) Rash & Swelling james seed Allergy (Verified 01/25/20 16:15) Rash Medications to take at Discharge blood sugar diagnostic See Rx Instructions .ROUTE .MEDSUPPLY #100 ea 09/09/18 blood-glucose meter See Rx Instructions .ROUTE .MEDSUPPLY #1 ea 09/09/18 lancets 28 gauge See Rx Instructions .ROUTE .MEDSUPPLY #200 ea 09/09/18 epinephrine 0.3 mg/0.3 mL injection, auto-injector 0.3 mg IM Q10-15M #2 ea 11/25/18 icosapent ethyl 1 gram capsule 2 g PO BID #120 cap 03/18/19 linagliptin 5 mg tablet 5 mg PO DAILY #90 tab 03/18/19 metoprolol tartrate 25 mg tablet 12.5 mg PO BID #90 tab 03/18/19 Aspirin [Aspirin, Baby] 81 mg PO DAILY@0800 #30 tab.chew 05/16/19 folic acid 1 mg tablet 2 mg PO DAILY #180 tab 05/21/19 sumatriptan succinate 25 mg tablet See Rx Instructions PO .COMPLEX #10 tab 05/21/19 amlodipine 5 mg tablet 5 mg PO DAILY #90 tab 10/04/19 losartan 25 mg tablet 37.5 mg PO DAILY 90 Days #135 tab 12/14/19 metformin 1,000 mg tablet 1,000 mg PO BID #180 tab 12/14/19 glimepiride 4 mg tablet 4 mg PO QAM #90 tab 12/21/19 Epi Pen (for allergic rxn) 0.3 mg IM DAILY PRN 01/25/20 Icosapent Ethyl [Vascepa] 4 gm PO BID 01/25/20 Diazepam [Valium] 2 mg PO 4X/DAY PRN PRN #30 tab 01/26/20 Hydrocodone/Acetaminophen [[place] 5-325 Tablet] 1 - 2 ea PO Q6H PRN PRN 7 Days #40 tab 01/26/20 Insulin Glargine [Lantus (BKC)] 15 - 20 units SC DAILY #1 pen 01/26/20 Valacyclovir HCl [Valtrex] 1,000 mg PO TID #21 tab 01/26/20 predniSONE tablet 40 mg PO DAILY #14 tab 01/26/20 The following prescriptions were given: Insulin Glargine [Lantus (BKC)] 15 - 20 units SC DAILY #1 pen Transmission Status: Pending to [facility] Hydrocodone/Acetaminophen [[place] 5-325 Tablet] 1 - 2 ea PO Q6H PRN PRN 7 Days #40 tab PRN Reason: Pain Score 4-10 Transmission Status: Sent to [facility] predniSONE tablet 40 mg PO DAILY #14 tab Transmission Status: Pending to [facility] Diazepam [Valium] 2 mg PO 4X/DAY PRN PRN #30 tab PRN Reason: Dizziness Transmission Status: Sent to [facility] Valacyclovir HCl [Valtrex] 1,000 mg PO TID #21 tab Prescription Printed Primary Care Physician: Iftikhar Carlos MD [Primary Care Provider] - Please follow up with your Primary Care Physician in: in 2-3 weeks Test Results: Test results from this visit will be discussed in further detail at your follow- up appointment, if applicable. Please Follow Up With: West Harding MD When: next [phone]
[2020-01-26 17:00] VITALS: BP 123/70; PULSE 97; RESP 18; TEMP 36.6; O2SAT 98
--- NOTE | 2020-01-27 15:13 | PCM.DC.SUM ---
Discharge Date and Diagnosis - Problem List Patient Problems: Active and Suspected Problems (Last Reviewed 12/21/19 @ 14:12 by Pippa Mejia) Weakness on right side of face (Acute) Date of Admission: 01/25/20 Date of Discharge: 01/26/20 - Primary Discharge Diagnosis Acute Problems: Active Problems (Last Reviewed 12/21/19 @ 14:12 by Pippa Mejia) #1 right sided postauricular pain and right facial pain associated with Girard's palsy #2 Girard's palsy affecting the right side of the face #3 type 2 diabetes - Secondary Discharge Diagnosis Chronic Problems: Chronic Problems (Last Reviewed 12/21/19 @ 14:12 by Pippa Mejia) Essential (primary) hypertension (Chronic) Hyperlipidemia (Chronic) Type II diabetes mellitus (Chronic) Hospital Course and Treatment Operations: None Procedures: None Summary of Care Provided: The patient is a 59 year old M who was seen in the emergency room at [facility] with complaints of right-sided postauricular pain, right-sided facial pain, and intermittent dizziness. He had been diagnosed 2 weeks prior with right-sided Girard's palsy. Work-up in the emergency room included a brain CT which was normal, patient's white blood cell count was 14,000, chemistry panel was remarkable for a glucose of 267 and urinalysis was unremarkable. The room physician was concerned that the patient might have [place] Barrett syndrome, he was placed in observation status on MedSurg 3, put on IV antivirals and IV Solu-Medrol. Patient underwent an MRI of the brain without contrast which showed no evidence of stroke. Initially ENT was consulted but I talked with them by phone and they felt that they could not add anything to the case and suggested that the patient follow-up with them as an outpatient. ENT recommended treating the patient as if he had shingles of the face with outpatient antiviral medication and outpatient corticosteroids. On 01/26/2020, patient was seen and examined: On examination he appeared in good health and spirits. Vital signs as documented. Skin warm and dry and without overt rashes. Neck without JVD, neck was supple, trachea midline, thyroid was normal. Lungs clear bilaterally, normal air movement was noted. Heart exam notable for regular rhythm, normal sounds and absence of murmurs, rubs or gallops. Abdomen unremarkable and without evidence of organomegaly, masses, or abdominal aortic enlargement. Bowel sounds are present, abdomen is not distended. Extremities nonedematous, no cyanosis was noted, no clubbing was noted. Neuro: Cranial nerves II through XII are grossly intact, there was notable right-sided facial drooping with inability to completely close his right eyelid, sensation to light touch and pinprick intact. Psych: Patient is alert and oriented x3, he does not appear anxious or depressed, he does not appear agitated. Patient was discharged to home on 01/26/2020 in stable condition. He was to follow-up with ENT within 7 days. I did not feel the patient had [place] Barrett syndrome. Patient Problems: Active and Suspected Problems (Last Reviewed 12/21/19 @ 14:12 by Pippa Mejia) Weakness on right side of face (Acute) - Physical Exam Vitals/I&O's: Vital Signs Temp Pulse Resp BP Pulse Ox 97.8 F 97 18 123/70 H 98 01/26/20 17:00 01/26/20 17:00 01/26/20 17:00 01/26/20 17:00 01/26/20 17:00 Oxygen Delivery Method Room Air Weight: 89.4 kg Body Mass Index (BMI) 29.0 Finger Stick Blood Glucose 215 Intake and Output for Last 24 Hours 01/25/20 01/26/20 01/27/20 23:59 23:59 23:59 Intake Total 468 / 468 1772 / 1772 Balance 468 / 468 1772 / 1772 Discharge Activity: Return to Normal Activity Weight Bearing Status: Full weight bearing Home Medications: Medications to take at Discharge blood sugar diagnostic See Rx Instructions .ROUTE .MEDSUPPLY #100 ea 09/09/18 blood-glucose meter See Rx Instructions .ROUTE .MEDSUPPLY #1 ea 09/09/18 lancets 28 gauge See Rx Instructions .ROUTE .MEDSUPPLY #200 ea 09/09/18 epinephrine 0.3 mg/0.3 mL injection, auto-injector 0.3 mg IM Q10-15M #2 ea 11/25/18 icosapent ethyl 1 gram capsule 2 g PO BID #120 cap 03/18/19 linagliptin 5 mg tablet 5 mg PO DAILY #90 tab 03/18/19 metoprolol tartrate 25 mg tablet 12.5 mg PO BID #90 tab 03/18/19 Aspirin [Aspirin, Baby] 81 mg PO DAILY@0800 #30 tab.chew 05/16/19 folic acid 1 mg tablet 2 mg PO DAILY #180 tab 05/21/19 sumatriptan succinate 25 mg tablet See Rx Instructions PO .COMPLEX #10 tab 05/21/19 amlodipine 5 mg tablet 5 mg PO DAILY #90 tab 10/04/19 losartan 25 mg tablet 37.5 mg PO DAILY 90 Days #135 tab 12/14/19 metformin 1,000 mg tablet 1,000 mg PO BID #180 tab 12/14/19 glimepiride 4 mg tablet 4 mg PO QAM #90 tab 12/21/19 Epi Pen (for allergic rxn) 0.3 mg IM DAILY PRN 01/25/20 Icosapent Ethyl [Vascepa] 4 gm PO BID 01/25/20 Diazepam [Valium] 2 mg PO 4X/DAY PRN PRN #30 tab 01/26/20 Hydrocodone/Acetaminophen [[place] 5-325 Tablet] 1 - 2 ea PO Q6H PRN PRN 7 Days #40 tab 01/26/20 Insulin Glargine [Lantus (BKC)] 15 - 20 units SC DAILY #1 pen 01/26/20 Valacyclovir HCl [Valtrex] 1,000 mg PO TID #21 tab 01/26/20 predniSONE tablet 40 mg PO DAILY #14 tab 01/26/20 Following Prescriptions Were Given to Patient: Insulin Glargine [Lantus (BKC)] 15 - 20 units SC DAILY #1 pen Transmission Status: Received by [facility] Hydrocodone/Acetaminophen [[place] 5-325 Tablet] 1 - 2 ea PO Q6H PRN PRN 7 Days #40 tab PRN Reason: Pain Score 4-10 Transmission Status: Received by [facility] predniSONE tablet 40 mg PO DAILY #14 tab Transmission Status: Received by [facility] Diazepam [Valium] 2 mg PO 4X/DAY PRN PRN #30 tab PRN Reason: Dizziness Transmission Status: Received by [facility] Valacyclovir HCl [Valtrex] 1,000 mg PO TID #21 tab Prescription Printed Primary Care Physician: Iftikhar Carlos MD [Primary Care Provider] - Please follow up with your Primary Care Physician in: in 2-3 weeks Please Follow Up With: West Harding MD When: next [phone] Disposition: Home Minutes spent on discharge:: 30 Patient Condition:: Stable Medical Necessity - Tobacco Use Smoking Status: Former smoker Tobacco Use: Cigarettes Meaningful Use Info Meaningful Use Diagnoses (Choose all that apply): None applicable OBSV E&M: 27819 Observation care discharge
== END 2020-01-26 16:47 | disposition home or self-care (01) ==
LOC: ED 18:11 → MS3 18:27
PROVIDERS: Admitting Provider Student in an Organized Health Care Education/Training Program; Emergency Provider Emergency Medicine; PCP Internal Medicine; Visit Provider Internal Medicine
DX: G51.0 Bell's palsy (principal); E11.9 Type 2 diabetes mellitus without complications; I10 Essential (primary) hypertension; E78.5 Hyperlipidemia, unspecified; Z86.73 Personal history of transient ischemic attack (TIA), and cerebral infarction without residual deficits; M06.9 Rheumatoid arthritis, unspecified; Z79.899 Other long term (current) drug therapy; Z79.84 Long term (current) use of oral hypoglycemic drugs; Z79.82 Long term (current) use of aspirin; Z87.891 Personal history of nicotine dependence
CPT/HCPCS: 36415; 70450; 70551; 80048; 80053; 81001; 82962; 85025; 96365; 96366; 96375; 96376; 97161; 99218; 99285; J7050; A4216; G0378

== ENCOUNTER 2020-05-07 13:19 | Emergency (ER) | payer OTHER, SELFPAY ==
[2020-05-04 11:17] VITALS: BMI 30.2
[2020-05-07 13:20] VITALS: BP 154/74; PULSE 84; RESP 16; TEMP 36.3; O2SAT 96; BMI 29.5
--- NOTE | 2020-05-07 14:09 | CT_ITS ---
STUDY: CT ABDOMEN AND PELVIS WITHOUT CONTRAST REASON FOR EXAM: Male, 59 years old. Abdominal pain, RADIATION DOSAGE (If Supplied By Facility): CTDIvol = ( 12.27 ) mGy, DLP = ( 588.56 ) mGycm TECHNIQUE: Transaxial images were obtained from the dome of the diaphragm to the symphysis pubis without oral contrast, and without intravenous contrast. Sagittal and coronal images were reconstructed. Individualized dose optimization techniques were used for this CT. COMPARISON: None. FINDINGS: The visualized lung bases are unremarkable. The visualized portions of the heart are within normal limits. Normal liver. Normal gallbladder and extrahepatic biliary system. Spleen is surgically removed. Normal pancreas. Normal bilateral adrenal glands. Normal right kidney. Normal left kidney. Normal visualized stomach. Normal small intestine. Normal colon. The appendix is visualized and appears normal. Normal abdominal aorta. Normal inferior vena cava. Normal retroperitoneum. Normal urinary bladder. Normal abdominal wall. Normal osseous structures. CT/Abdomen/Pelvis without Cont IMPRESSION: Normal unenhanced CT of the abdomen and pelvis. Electronically Signed: Lucy Azul MD at 15:05 EST Tel , Service support ,
[2020-05-07 14:31] LABS: Bacteria 0 SEEN /hpf (None Seen); Mucous, Urine 0 SEEN /hpf (<or=2+); Red Blood Cells-Urine 0 SEEN /hpf (0-5); White Blood Cells 0 SEEN /hpf (0-5)
[2020-05-07 14:33] LABS: Color, Urine Straw (Yellow); Glucose, Dipstick Normal (Normal); Ketone-Dipstick Negative (Negative); Leukocyte Esterase-Dipstick Negative /ul (Negative); Nitrite-Dipstick Negative (Negative); Occult Blood-Urine Negative /ul (Negative); Protein-Dipstick Negative (Negative); Urine Bilirubin Dipstick Negative (Negative); Urine Clarity Clear (Clear); Urine Urobilinogen Normal (Normal); Urine pH 6.5 (5.0 - 8.0)
[2020-05-07] MEDS: Morphine 4 MG/ML Syringe IV (14:37)
[2020-05-07] MEDS: Ondansetron 4 MG/2 ML Vial IV (14:37)
[2020-05-07] MEDS: Ketorolac 15 MG/ML Vial IV (14:37)
[2020-05-07] MEDS: 0.9% Normal Saline 1,000 ML 1000 ML IV (14:37)
[2020-05-07 14:42] LABS: Absolute Lymphocyte Count 6.17 X10^3/uL (0.83-4.51); Absolute Neutrophil Count 5.1 X10^3/uL (2.0-7.7); Basophil# 0.08 X10^3/uL; Basophil% 0.6 % (0-1); Eosinophil# 0.67 X10^3/uL; Hematocrit 37.9 % (40-54); Lymphocyte # 6.17 X10^3/ul (4.0); Lymphocyte % 46.2 % (19-41); Mean Corp Hgb Conc 34.3 g/dL (32-36); Mean Corpuscular Volume 93.3 fL (80-94); Mean Platelet Vol. 10.8 fl (6.2-12.0); Monocyte# 1.32 X10^3/uL; Monocyte% 9.9 % (0-10); NRBC Flagged by Analyzer 0 % (0-5); Neutrophil % 38.2 % (47-70); POSITIVE DIFFERENTIAL YES; POSITIVE MORPHOLOGY YES; Platelet Count 309 K/mm3 (150-450); RBC Distribution Width CV 13.2 % (11.6-14.6); RBC Distribution Width SD 44.8 fl (35.1-43.9); Red Blood Count 4.06 M/mm3 (4.6-6.2); White Blood Count 13.4 K/mm3 (4.4-11.0)
[2020-05-07 14:42] LABS: Squamous Epithelial Cells - UA 0-5 SEEN /hpf (0-5)
[2020-05-07 14:43] LABS: Differential Indicated SCAN CRITERIA MET
[2020-05-07 15:20] LABS: ALB/GLOB Ratio 1.1 RATIO (0.9-2.4); AST(SGOT) 14 U/L (15-37); Alanine Aminotransfer ALT/SGPT 26 U/L (16-61); Albumin, Serum 3.7 g/dL (3.2-5.0); Alkaline Phosphatase 82 U/L (45-117); Anion Gap 9 (5-15); BUN 11 mg/dL (7-18); BUN/Creat Ratio 13.7 RATIO (10-20); Calcium,Total 9.1 mg/dL (8.5-10.1); Chloride 104 mmol/L (98-107); EST Glomerular Filtration Rate 105 mL/min (>60); Est Glom Filt Rate - Afr Amer 127 mL/min (>60); Estimated Creatinine Clearance 100.65 ml/min; Globulin 3.3 g/dL (2.2-4.2); Glucose 142 mg/dL (74-106); Potassium 3.7 mmol/L (3.5-5.1); Sodium Level 138 mmol/L (136-145)
--- NOTE | 2020-05-07 15:22 | ED.VIS.BACK ---
History of Present Illness Chief Complaint: Back Informant: Patient Onset: Days Context: Gradual Onset Narrative: Patient is a 59-year-old male with history of rheumatoid arthritis and diabetes mellitus presenting with 1 week of low back pain. It is in his left lower back. Patient states he feels like there is an area of inflammation in his back. Today his pain was more severe he had an episode of pain radiating to his flank. States the pain was unbearable at that point. He has been taking ibuprofen which for the most part has been helpful. He denies any associated urinary symptoms, nausea or vomiting. Has had normal bowel movements. He denies any pain in his groin or his testicles. No change with his urine such as hematuria or dysuria. Denies any saddle anesthesia. No pain rating to his legs or leg weakness. he does not know if he has any history of kidney stones. Patient is on methotrexate for his RA. No other complaints at this time. Past Medical History - Allergies and Home Meds Allergies/Adverse Reactions: Allergies pneumococcal vaccine [From Pneumovax 23] Allergy (Intermediate, Verified 05/07/20 13:20) Rash & Swelling james seed Allergy (Verified 05/07/20 13:20) Rash Primary Care Physician: Iftikhar Carlos MD [Primary Care Provider] - Past Medical History: - - DM, RA Surgical History: noncontributory Lives: Spouse/ Significant Other Smoking Status: Never smoker Review of Systems General: Denies: Chills, Fever, Sweats Eyes: Denies: Visual changes - bilaterally, Diplopia ENT: Denies: Rhinorrhea, Sore throat Cardiovascular: Denies: Chest pain, Palpitations Respiratory: Denies: Dyspnea, Cough, Dyspnea on exertion Gastrointestinal: Denies: Abdominal pain, Nausea, Vomiting, Diarrhea, Melena, Hematochezia Genitourinary: Denies: Dysuria, Hematuria, Frequency Musculoskeletal: Reports: Back pain. Denies: Swelling, Extremity Pain Skin: Denies: Rash, Wounds Neurological: Denies: Headache, Weakness, Numbness Physical Exam Vital Signs/Narrative: Vital Signs Temp Pulse Resp BP Pulse Ox 05/07/20 13:20 97.4 F L 84 16 154/74 H 96 Inital Vital Signs reviewed: Yes General: Well nourished, Well developed Head: Normocephalic, Atraumatic Eyes: Perrl, EOMI ENT: Moist mucous membranes, No rhinorrhea Neck: Supple, Nontender Cardiovascular: Regular rate, Regular rhythm, No murmurs Respiratory: No distress, CTA bilaterally, Chest nontender Abdomen: Soft, Nontender, Nondistended, Normal bowel sounds Back: Normal Inspection, Nontender, - - Pain is not reproducible however patient points to his left lower lumbar paraspinal region and just above his SI joint as the area of pain. Negative for: Spinal tenderness, Paraspinal Tenderness, CVA tenderness Extremeties: Nontender, No edema Skin: Normal color, No rash Neuro: Alert, Oriented, Normal Strength, Normal Sensation, Normal DTR, Normal Gait Psychological: Normal affect Diagnostic/Tx/Re-eval Clinical Impression(s) from Imaging Studies Abdomen/Pelvis CT 05/07/20 14:09 IMPRESSION: Normal unenhanced CT of the abdomen and pelvis. Electronically Signed: Lucy Azul MD at 15:05 EST Tel , Service support , Laboratory Data 05/07/20 05/07/20 05/07/20 14:15 14:35 14:35 WBC 13.4 H RBC 4.06 L Hgb 13.0 Hct 37.9 L MCV 93.3 MCH 32.0 MCHC 34.3 RDW Std Deviation 44.8 H RDW Coeff of Linh 13.2 Plt Count 309 MPV 10.8 Immature Gran % (Auto) 0.100 Neut % (Auto) 38.2 L Lymph % (Auto) 46.2 H Parker % (Auto) 9.9 Eos % (Auto) 5.0 Baso % (Auto) 0.6 Absolute Neuts (auto) 5.1 Absolute Lymphs (auto) 6.17 H Nucleated RBC % 0 Sodium 138 Potassium 3.7 Chloride 104 Carbon Dioxide 25.0 Anion Gap 9 BUN 11 Creatinine 0.80 Estim Creat Clear Calc 100.65 Est GFR (MDRD) Af Amer 127 Est GFR (MDRD) Non-Af 105 BUN/Creatinine Ratio 13.7 Glucose 142 H Calcium 9.1 Total Bilirubin 0.40 AST 14 L ALT 26 Alkaline Phosphatase 82 Total Protein 7.0 Albumin 3.7 Globulin 3.3 Albumin/Globulin Ratio 1.1 Urine Color Straw Urine Clarity Clear Urine pH 6.5 Ur Specific [place] 1.010 Urine Protein Negative Urine Glucose (UA) Normal Urine Ketones Negative Urine Occult Blood Negative Urine Nitrite Negative Urine Bilirubin Negative Urine Urobilinogen Normal Ur Leukocyte Esterase Negative Urine RBC 0 SEEN Urine WBC 0 SEEN Ur Squamous Epith Cells 0-5 SEEN Urine Bacteria 0 SEEN Urine Mucus 0 SEEN - Medical Decision Making She does evaluated for left lower back pain. Today and episode of pain radiating to his flank. It is mostly been dull but is more severe today. Likely the pain is muscle skeletal however kidney stone is on the differential as well. Urinalysis, blood work and CT of the abdomen pelvis did not show any acute process. Given patient's history of RA, sacroiliitis is also on the differential. Patient will be treated with Flexeril and Motrin for the time being and follow-up with his primary care doctor. At this time I will not start him on steroids. Patient is agreeable this plan of care. Patient is counseled on signs and symptoms requiring return to the emergency room. Patient verbalizes agreement and understand this plan. Patient discharged home in stable and improved condition. ED Disposition - Plan for ED Patient: Disposition: Home or Assisted Living Diagnosis: Low back pain Instructions: ED Back Pain (Acute or Chronic) Prescriptions: cycloBENZAPRine HCl [Flexeril] 10 mg PO TID PRN #20 tab PRN Reason: Muscle Spasm Transmission Status: Pending to [facility] Referrals: Iftikhar Carlos MD [Primary Care Provider] -
[2020-05-07 16:01] VITALS: BP 154/80
== END 2020-05-07 16:08 | disposition home or self-care (01) ==
PROVIDERS: Emergency Provider Emergency Medicine; PCP Internal Medicine
DX: M54.5 Low back pain (principal); E11.9 Type 2 diabetes mellitus without complications; M06.9 Rheumatoid arthritis, unspecified; Z79.84 Long term (current) use of oral hypoglycemic drugs; Z79.899 Other long term (current) drug therapy
CPT/HCPCS: 74176; 80053; 81001; 85025; 96361; 96374; 96375; 99283; J7030; A4216; J2405

== ENCOUNTER → 2020-05-18 17:37 | Outpatient (CLI) | payer OTHER, SELFPAY ==
[2020-05-16 14:00] VITALS: BMI 29.3
[2020-05-18 18:47] LABS: Erythrocyte Sedimentation Rate 9 mm/hr (0-20)
[2020-05-18 19:30] LABS: Hemoglobin A1c 7.7 % (3.8-5.6)
[2020-05-18 19:31] LABS: Cholesterol 214 mg/dL (200); High Density Lipoprotein 40 mg/dL; Triglycerides 566 mg/dL
[2020-05-22 07:32] LABS: ANTINUCLEAR ANTIBODIES DIRECT Negative (Negative)
[2020-05-24 14:09] LABS: Complement C3 142 mg/dL (82-167); Dilute Prothrombin Time (dPT) 34.9 sec (0.0-55.0); Dilute Russell Viper Venom 46.1 sec (0.0-47.0); PTT-LA 37.4 sec (0.0-51.9); Protein C Antigen 123 % (60-150); Thrombin Time 19.5 sec (0.0-23.0); dPT Confirm Ratio 1.27 Ratio (0.00-1.40)
[2020-05-24 17:29] LABS: Anti-Cardiolipin Ab, IgA, Qn < 9 APL U/mL (0-11); Anti-Cardiolipin Ab, IgG, Qn < 9 GPL U/mL (0-14); Anti-Cardiolipin Ab, IgM, Qn 14 MPL U/mL (0-12); Anti-Thrombin 3 AG, Immunol 101 % (72-124); Antithrombin 3 Function 107 % (75-135); Complement CH50 42 U/mL (>41); Interpretation Comment: (.); Protein C, Functional 177 % (73-180); Protein S, Free 116 % (57-157); Protein S, Funtional 74 % (63-140); Protein S, Total 111 % (60-150)
== END ==
LOC: LAB 17:38
PROVIDERS: Surgery; PCP Internal Medicine; Referring Provider Psychiatry & Neurology Neurology; Visit Provider Psychiatry & Neurology Neurology
DX: E78.2 Mixed hyperlipidemia (principal); Z86.73 Personal history of transient ischemic attack (TIA), and cerebral infarction without residual deficits
CPT/HCPCS: 36415; 80061; 81240; 81241; 83036; 85300; 85301; 85302; 85303; 85305; 85306; 85652; 86038; 86147; 86160; 86162; 86225; 86235

== ENCOUNTER 2020-05-31 12:53 | Outpatient (RCR) | payer OTHER, SELFPAY ==
[2020-05-23 13:59] VITALS: BMI 30.1
--- NOTE | 2020-05-31 15:16 | MASS.EVAL ---
Massage Therapy Evaluation: Initial Evaluation Date: 05/31/2020 SUBJECTIVE: Temo is a 59 year old male who was referred to the [facility] for a massotherapy evaluation by Dr. Mcintyre with the diagnosis of low back pain and spasm. Temo presents today with the symptoms of pain and large knot in his lower back. The symptoms have been present for a month and a half. Sitting and walking cause his pain to increase. He is currently taking muscle relaxers and general pain relievers to keep pain under control. OBJECTIVE: Upon observation Temo has some posture issues with his head and shoulders forward from the neutral position in sitting and standing. After examination and palpation I found Temo to have high muscle tension with tenderness and myofascial restrictions in his sub occipitals, levator scapulae, trapezius, rhomboids, scalenes, and paraspinals muscle group. His QL?s and lumbar paraspinals, had high tension with fascial restrictions and tender points. The first treatment consisted of a one hour massage with myofascial release, muscle stripping, trigger point compression techniques. ASSESSMENT: I feel that Temo is a good candidate for massotherapy at this time. He had a favorable response to the first treatment with reduction in his muscle aches, pain and tension. PLAN: The plan of care was reviewed with the patient. The patient is to be seen on an as needed basis for a total of ten sessions with the recommendation of once every month for a one hour treatment.
--- NOTE | 2021-02-21 16:26 | DS.PCM_ITS ---
Massage Therapy Discharge Summary: Discharge Date: 02/21/2021 Temo was seen for a massotherapy evaluation on 05/31/2020 with the diagnosis of muscle spasms. He was treated with one session of massage therapy consisting of deep pressure soft tissue techniques, myofascial release and trigger point compression to his cervical, thoracic, lower back and hips. He was unable to schedule more appoints for the year of 2020. At this time this patient is being discharged from our care at [facility] facility.
== END 2020-05-31 19:00 | disposition home or self-care (01) ==
LOC: MASS 12:53
PROVIDERS: PCP Internal Medicine; Visit Provider Nurse Practitioner Family
DX: M62.838 Other muscle spasm (principal); M54.5 Low back pain
CPT/HCPCS: 97124

== ENCOUNTER → 2020-06-08 13:01 | Outpatient (CLI) | payer OTHER, SELFPAY ==
[2020-05-23 13:59] VITALS: BMI 30.1
--- NOTE | 2020-06-08 13:02 | CDU_ITS ---
Reason For Study: TIA's Rt. Velocities/BP Lt. Velocities/BP Prox CCA 66.9/18.6 cm/sec. Prox CCA 70.3/15.1 cm/sec. Mid CCA 74.7/20 cm/sec. Mid CCA 86.3/21.2 cm/sec. Dist CCA 78.6/20 cm/sec. Dist CCA 90/17.6 cm/sec. Prox ICA 97.4/29.8 cm/sec. Prox ICA 56.4/20.1 cm/sec. Mid ICA 91.9/29.8 cm/sec. Mid ICA 73.9/26.7 cm/sec. Dist ICA 101/31.6 cm/sec. Dist ICA 86.1/33.3 cm/sec. Rt. ICA/CCA = 1.35. Lt. ICA/CCA = 1.00. Prox ECA 117.4/11.5 cm/sec. Prox ECA 124.7/7.9 cm/sec. Rt. Vert. 56.9/12.6 cm/sec. Lt. Vert. 42.8/9.7 cm/sec. Right Extracranial There is homogeneous, smooth atherosclerotic plaque noted in the right common carotid artery. There is homogeneous, smooth atherosclerotic plaque noted in the right internal carotid artery. There is intimal thickening but no significant atherosclerotic plaque noted in the right external carotid artery. Antegrade flow is noted in the right vertebral artery. Left Extracranial There is homogeneous, smooth atherosclerotic plaque noted in the left common carotid artery. There is homogeneous, smooth atherosclerotic plaque noted in the left internal carotid artery. There is intimal thickening but no significant atherosclerotic plaque noted in the left external carotid artery. Antegrade flow is noted in the left vertebral artery. Procedure Carotid Duplex [id number]. This is a Carotid Duplex examination using B-mode, color flow and specral Doppler. Exam performed in department. VL/Carotid Duplex Ultrasound Interpretation Summary Smooth plaque at the proximal right internal carotid artery with less than 50% stenosis Less than 50% stenosis right external carotid artery Smooth plaque with minimal calcific shadowing at the proximal left internal car otid artery with a less than 50% stenosis Less than 50% stenosis left external carotid artery Patent and antegrade vertebral arteries bilaterally Ordering Physician: Obi Lozano Referring Physician: Iftikhar Carlos Performed By: Mariam Mcclellan RVT
== END ==
PROVIDERS: PCP Internal Medicine; Referring Provider Psychiatry & Neurology Neurology; Visit Provider Psychiatry & Neurology Neurology
DX: E78.2 Mixed hyperlipidemia (principal); Z86.73 Personal history of transient ischemic attack (TIA), and cerebral infarction without residual deficits
CPT/HCPCS: 93880

== ENCOUNTER → 2020-06-09 08:49 | Outpatient (CLI) | payer OTHER, SELFPAY ==
[2020-05-04 11:17] VITALS: BMI 30.2
[2020-05-23 13:59] VITALS: BMI 30.1
--- NOTE | 2020-06-09 10:17 | TELEMED_ITS ---
[facility] has confirmed receipt of a request for visit. This document confirms receipt of the order initiating the consult. To find the results of the consultation, please view the patient's reports for the scanned Telemed Consult.
== END ==
PROVIDERS: PCP Internal Medicine; Referring Provider Psychiatry & Neurology Neurology; Visit Provider Psychiatry & Neurology Neurology
DX: Z86.69 Personal history of other diseases of the nervous system and sense organs (principal); Z86.73 Personal history of transient ischemic attack (TIA), and cerebral infarction without residual deficits
CPT/HCPCS: 95819

== ENCOUNTER 2020-06-16 06:29 | Day surgery (SDC) | payer OTHER, SELFPAY ==
[2020-03-29 15:06] VITALS: BMI 29.9
[2020-05-23 13:59] VITALS: BMI 30.1
--- NOTE | 2020-06-08 15:39 | NURSING ---
patient had moderna vaccine x2 last 04/11/20
--- NOTE | 2020-06-15 22:50 | PCM.HP.BLA ---
History and Physical Date of Admission: 06/16/20 HISTORY OF PRESENT ILLNESS 59 year old man presents with a soft tissue mass right medial forehead by eyebrow that has increased in size over the last several months. 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 He denies trauma. He denies fever. He denies numbness. He denies headaches. He presents at this time for further evaluation and treatment. PAST MEDICAL HISTORY Mass of face Essential (primary) hypertension Hyperlipidemia Type II diabetes mellitus COVID-19 History of blood transfusion [place] Barrett syndrome (geniculate herpes zoster) Rheumatoid arthritis Trigger finger of both hands History of TIA (transient ischemic attack) Pneumonia Stroke Nonrheumatic mitral (valve) insufficiency PAST SURGICAL HISTORY appendectomy lymphoid or hematologic neoplasm splenectomy tonsillectomy ALLERGIES pneumococcal vaccine [From Pneumovax 23] james seed MEDICATIONS epinephrine injection icosapent ethyl capsule linagliptin Aspirin [Aspirin, Baby] sumatriptan succinate amlodipine losartan metformin glimepiride Epi Pen Icosapent Ethyl [Vascepa] Diazepam [Valium] Insulin Glargine [Lantus (BKC)] Valacyclovir HCl [Valtrex] predniSONE metoprolol tartrate folic acid FAMILY HISTORY Sister - Diabetes, Hypertension, High cholesterol, blood clots Brother - Myocardial infarction, High cholesterol, CVA (cerebral vascular accident), Heart disease Mother - Myocardial infarction, Hypertension, Arthritis, History of blood transfusion, Heart disease, Kidney disease Father - High cholesterol, CVA (cerebral vascular accident), blood clots Grandmother - CVA (cerebral vascular accident) SOCIAL HISTORY Smoking Status: Former smoker how long ago did patient quit smoking: quit 1994 alcohol intake: never substance use type: does not use REVIEW OF SYSTEMS General - Denies fever and weight loss. Has fatigue. Eyes - Denies cataracts and glaucoma. ENT - Denies nasal congestion and sore throat. Has chronic sinusitis. Endocrine - Denies excessive thirst and urination. Skin - Denies skin cancer. Has enlarging soft tissue mass right medial forehead by eyebrow. Musculoskeletal - Has joint pain, joint stiffness, weakness of muscles and joints. Denies back pain, and arthritis. Neuro - Denies headaches. Cardiovascular - Denies chest pain, fatigue, and shortness of breath with exertion. Psych - Denies anxiety and depression. Respiratory - Denies chronic cough and shortness of breath. Gastrointestinal - Denies nausea, vomiting, diarrhea, and constipation. Hematologic - Denies abnormal bruising and bleeding. Genitourinary - Denies hematuria and urinary frequency. PHYSICAL EXAMINATION General - Alert and Oriented. HEENT - PERRL. EOMI. Throat is clear. On the right medial forehead by the eyebrow is a soft tissue mass. It is mobile. Measures 2.3 cm. Eyebrows elevate symmetrically. No ulceration. Mass is nontender. No other suspicious lesions noted. Neck - Supple and nontender. No cervical adenopathy. No suspicious lesions noted. Lungs - Clear to auscultation. Heart - Regular rate and rhythm. Abdomen - Soft and nondistended. Extremities - FROM. No axillary adenopathy. Radial pulses are palpable. No suspicious lesions noted. Neuro - CN II-XII grossly intact. Psych - Normal mood and affect. ASSESSMENT 1. 2.3 cm soft tissue mass right medial forehead by the eyebrow. 2. Diabetes mellitus. PLAN Recommend excision of this soft tissue mass right medial forehead by the eyebrow and send it to Pathology for analysis to rule out carcinoma. Usually these forehead masses are submuscular in location which may necessitate additional pain medication postoperatively. Surgery can be done on an outpatient basis under local anesthesia and IV sedation. Patient was informed of the risks and complications of the procedure including alternatives to surgery. These were discussed with the patient personally. Patient voices understanding and wishes to proceed. Some of the risks and complications were included in a form from the [employer] [place]. He has diabetes mellitus. His recent HgbA1c on 05/18/20 was 7.7. For elective surgery, it needs to be less than 8. We discussed the current risks associated with COVID-19. While it is understood that there is a community spread of COVID-19, the risk of jammie COVID-19 while at [facility] ([facility]) is very low; however, the risk cannot be completely mitigated because of the community spread of the disease. We discussed in detail the risk of exposure to and/or potential harm posed by the COVID-19 virus with having a surgery/procedure at this time versus the risk of delaying the surgery/procedure. It is not possible to know either the risk of delaying the surgery or procedure or chance of getting an infection with perfect accuracy, but a joint decision was made to proceed at this time with the scheduled surgery/procedure as indicated on the consent form. Patient was notified that we will need to comply with any screening or testing WC wishes to perform or that surgery may be delayed for any positive results. Discussed with the patient that I was tested for COVID-19 on 09/09/19 which was negative and on 09/23/19 which was negative and on 10/07/19 which was negative and on 10/21/19 which was negative and on 11/04/19 which was negative and on 11/25/19 which was negative and on 12/16/19 which was negative and on 01/20/20 which was negative and on 02/10/20 which was negative and on 02/29/20 which was negative. My testing regimen at this time is to be COVID-19 tested every 2 weeks or so. I received the COVID-19 vaccine (Moderna) on 03/08/20 and the second vaccine dose was received on 04/05/20. I was tested for COVID-19 on 05/08/20 which was negative and on 05/23/20 which was negative. Procedure Criteria Procedure Type: Elective COVID Risk Discussion: The surgeon/proceduralist and patient have discussed in detail the risk of exposure to and/or potential harm posed by the COVID-19 virus with having a surgery/procedure at this time versus the risk of delaying the surgery/procedure. It is not possible to know either the risk of delaying the surgery or procedure or chance of getting an infection with perfect accuracy, but a joint decision was made between the patient and the surgeon/proceduralist to proceed at this time with the scheduled surgery/procedure as indicated on the consent form.
[2020-06-16] VITALS (7 sets, daily range): BP systolic 133–155; BP diastolic 70–82; PULSE 85–94; RESP 16–18; TEMP 36–36.5; O2SAT 93–99; BMI 29.8
[2020-06-16] MEDS: Lactated Ringers 1,000 ML 100 ML IV (07:20)
[2020-06-16 07:50] LABS: Bedside Glucose 116 mg/dL (70-110)
--- NOTE | 2020-06-16 08:00 | LES_PTH ---
PATIENT: UMA WILKES LOC: [facility] [place] U#:[id number] AGE/SX: 59/M ROOM: RE06/16/[address]: Dr. Epifanio De La Cruz MD : 1960 BED: DIS: 06/16/2020 SPEC #: [id number] RECD: 06/16/20 12:37 STATUS: NIGEL VIKASH #: [id number] CHLOE: 06/16/20 08:[address]: Epifanio De La Cruz DEPT: SURGICAL PATHOLOGY RECD BY: Erlinda Hernandez ENTERED: 06/16/20 13:07 SP TYPE: Lesion OTHR DR: Dr. Iftikhar Carlos MD Tissues: Skin of forehead Procedures: Surgery Specimen Level III HEADER OPERATION: Excision soft tissue mass right medial forehead by eyebrow PRE-OP DIAGNOSIS: 2.3 cm soft tissue mass right medial forehead by eyebrow TISSUE SUBMITTED: Soft tissue mass, right medial forehead by eyebrow MICROSCOPIC DIAGNOSIS Soft tissue mass, right medial forehead, excision: Mature adipose tissue consistent with lipoma. MAIK:gail 06/19/2020 MICROSCOPIC DESCRIPTION Slides are reviewed. GROSS DESCRIPTION Received in fixative is one container labeled with the patient's name and designated soft tissue mass, right medial forehead by eyebrow. The specimen consists of a piece of grullon-yellow adipose tissue measuring 1.5 x 1 x 0.5 cm. The specimen is bisected to reveal yellow adipose cut surfaces without area of hemorrhage, necrosis or cystic degeneration. The entire specimen is submitted in one cassette. / MAIK:gail 06/16/20 TC:1 CPT: 16371
[2020-06-16] MEDS: Lidocaine 1% /Epi 1:100 (20ml) 20 ML Vial (08:16)
[2020-06-16] MEDS: Mupirocin Ointment 22gm Tube 1 APPLIC (08:30)
--- NOTE | 2020-06-16 09:00 | OP.PCM_ITS ---
Report of Operation Date of Procedure: 06/16/20 Pre-Operative Diagnosis: 1. 2.3 cm soft tissue mass right medial forehead by the eyebrow. 2. Diabetes mellitus. Post-Operative Diagnosis: 1. 2.3 cm submuscular soft tissue mass right medial forehead by the eyebrow. 2. Diabetes mellitus. Surgery/Procedure Performed:: Excision 2.3 cm submuscular soft tissue mass right medial forehead by the eyebrow with 2 cm complex closure repair. Description of Surgical Findings:: 59 year old man presents with a soft tissue mass right medial forehead by eyebrow that has increased in size over the last several months. 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 He denies trauma. He denies fever. He denies numbness. He denies headaches. Patient was informed of the risks and complications of the procedure including alternatives to surgery. These were discussed with the patient personally. Patient voices understanding and wishes to proceed. Some of the risks and complications were included in a form from the [employer]. 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 Drains: None. Estimated Blood Loss (mL): 25 ml. Description of Procedure: Patient was taken to OR in supine position and was placed under general anesthesia. The forehead was prepped and draped in the usual fashion. SCD's were placed for DVT prophylaxis. Perioperative antibiotics were given intravenously. Using xylocaine with epinephrine, the soft tissue mass right medial forehead by eyebrow was infiltrated. After waiting 5 minutes for the anesthetic to take effect, I made a horizontal incision over the soft tissue mass. Dissection was carried down into the subcutaneous tissue. No soft tissue mass was seen. The underlying muscle showed a bulge. The muscle fibers were and the submuscular soft tissue mass was seen. It was sharply dissected free as it was adherent to the underlying periosteum. The mass was sent to Pathology for analysis to rule out carcinoma. The wound was irrigated with saline. Hemostasis was obtained with electrocautery. The wound was closed in a complex fashion with 5-0 Monocryl figure of eight interrupted sutures for the underlying muscle. The deep dermis and subcutaneous tissue was approximated with 5-0 Monocryl interrupted sutures. The skin was approximated with 6-0 Prolene simple interrupted sutures. The length of the complex closure was 2 cm. Steri-strips were applied to the suture line followed by antibiotic ointment and a compression gauze dressing. Patient tolerated the procedure well and was sent to PACU in satisfactory condition. Patient will be sent home on antibiotics and pain medication and some Valium for spasm. He will keep his head elevated during the initial postoperative period and be on a lifting restriction as well. Patient will followup in a week for a wound check and for discussion of the pathology report and for removal of the sutures. Grafts/Implants Used: None. - Complications None. - Admit VTE Documentation VTE Present on Admission: No VTE Mechan Device Prophylaxis: SCD's VTE Pharm Prophylaxis ordered?: No Surgery Charges CPT - 05782 ICD-10 - R22.0, E11.9 07120 R22.0, E11.9
--- NOTE | 2020-06-16 09:38 | DCINST_ITS ---
You will use the following diet at home:: Calorie/Carbohydrate Controlled (specify 1200, 1400, etc) Discharge Activity: May not drive while taking narcotic pain medications., May Shower - in two days., - - keep head elevated. no heavy lifting. Return to work on:: 06/19/20 - tentative May shower in (days): 2 May resume sexual activity in: 1 week Ice area for (Minutes): 5 - as needed for facial swelling. Weight Bearing Status: Weight bearing as tolerated Lifting Restrictions: 20 lbs. Keep extremity elevated above heart level: - - elevate head. Call your doctor if your incision/area has: Continuous Slow Oozing, Sudden Increased Bleeding, Increased Pain/ Swelling, Increased Redness, Foul Smelling Discharge, Swelling at the incision site Call your doctor if you observe: Fever of 101 or Higher, Coldness, Increased Pain, Shortness of breath, Chest pain, Calf discomfort, Uncontrolled pain Suture Line Care: - - after operative dressing removed in two days, apply antibiotic ointment to suture line daily. Remove Dressing in (days):: 2 Cleanse incision/area with: - - may get incision wet in the shower in two days. Additional Instructions: Do not take Advil, Ibuprofen, Aleve, Aspirin if needed until Friday06/19/20. Allergies/Adverse Reactions: Allergies pneumococcal vaccine [From Pneumovax 23] Allergy (Intermediate, Verified 06/16/20 06:39) Rash & Swelling james seed Allergy (Verified 06/16/20 06:39) Rash Medications to take at Discharge blood sugar diagnostic See Rx Instructions .ROUTE .MEDSUPPLY #100 ea 09/09/18 blood-glucose meter See Rx Instructions .ROUTE .MEDSUPPLY #1 ea 09/09/18 lancets 28 gauge See Rx Instructions .ROUTE .MEDSUPPLY #200 ea 09/09/18 icosapent ethyl 1 gram capsule 2 g PO BID #120 cap 03/18/19 linagliptin 5 mg tablet 5 mg PO DAILY #90 tab 03/18/19 amlodipine 5 mg tablet 5 mg PO DAILY #90 tab 10/04/19 losartan 25 mg tablet 37.5 mg PO DAILY 90 Days #135 tab 12/14/19 metformin 1,000 mg tablet 1,000 mg PO BID #180 tab 12/14/19 glimepiride 4 mg tablet 4 mg PO QAM #90 tab 12/21/19 Epi Pen [Epi-Pen] 0.3 mg IM DAILY PRN 01/25/20 metoprolol tartrate 25 mg tablet 12.5 mg PO BID #90 tab 03/08/20 folic acid 1 mg tablet 2 mg PO DAILY #180 tab 03/21/20 atorvastatin 80 mg tablet 80 mg PO DAILY #30 tab 05/19/20 tizanidine 2 mg tablet 2 mg PO QHS PRN #20 tablet 05/23/20 methotrexate sodium 2.5 mg tablet 12.5 mg PO Q7D #30 tablet 06/14/20 Clindamycin HCl [Cleocin] 300 mg PO TID #15 capsule 06/16/20 Diazepam [Valium] 5 mg PO BID PRN PRN #5 tablet 06/16/20 Oxycodone HCl/Acetaminophen [Percocet 5/325] 1 tablet PO 4X/DAY PRN PRN 5 Days #20 tablet 06/16/20 The following prescriptions were given: Clindamycin HCl [Cleocin] 300 mg PO TID #15 capsule Transmission Status: Pending to [facility] Oxycodone HCl/Acetaminophen [Percocet 5/325] 1 tablet PO 4X/DAY PRN PRN 5 Days #20 tablet PRN Reason: Pain Score 6-10 Transmission Status: Sent to [facility] Diazepam [Valium] 5 mg PO BID PRN PRN #5 tablet PRN Reason: Spasms Transmission Status: Sent to [facility] Orders to be completed after discharge: COVID 19 AG RAPID (RN COLLECT) Time Frame: 05/11/20, Facility: [facility], Location: Laboratory Primary Care Physician: Iftikhar Carlos MD [Primary Care Provider] - Test Results: Test results from this visit will be discussed in further detail at your follow- up appointment, if applicable. Please Follow Up With: Epifanio De La Cruz MD When: one week. Proposed Discharge Date: 06/16/20
== END 2020-06-16 10:30 | disposition home or self-care (01) ==
LOC: SDC 06:29 → AC 06:30
PROVIDERS: PCP Internal Medicine; Referring Provider Surgery; Visit Provider Surgery
PROC: (CPT 13131; principal; 2020-06-16 07:45)
DX: R22.0 Localized swelling, mass and lump, head (principal); E11.9 Type 2 diabetes mellitus without complications; Z20.822 Contact with and (suspected) exposure to COVID-19; I10 Essential (primary) hypertension; E78.5 Hyperlipidemia, unspecified; M06.9 Rheumatoid arthritis, unspecified; I34.0 Nonrheumatic mitral (valve) insufficiency; E78.00 Pure hypercholesterolemia, unspecified; Z86.73 Personal history of transient ischemic attack (TIA), and cerebral infarction without residual deficits; Z87.01 Personal history of pneumonia (recurrent); Z86.16 Personal history of COVID-19; Z90.81 Acquired absence of spleen; Z79.4 Long term (current) use of insulin; Z79.82 Long term (current) use of aspirin; Z79.899 Other long term (current) drug therapy; Z87.891 Personal history of nicotine dependence
CPT/HCPCS: 13131; 21012; 82962; 88304; 88305; J7120; J2405

== ENCOUNTER → 2020-07-13 13:44 | Outpatient (CLI) | payer OTHER, SELFPAY ==
[2020-07-03 14:34] VITALS: BMI 30.1
[2020-07-04 15:00] VITALS: BMI 30.1
--- NOTE | 2020-07-13 13:46 | US_ITS ---
STUDY: SUPERFICIAL ULTRASOUND - LOWER BACK REASON FOR EXAM: Male, 59 years old. Left Lower Back Swelling TECHNIQUE: A superficial ultrasound was performed with real-time and static macedo-scale imaging. COMPARISON: None. FINDINGS: Examination of the left lower back was performed. There is no focal cystic or solid mass. There is no fluid collection. US/Ext Non Vasc Limited/Soft Tiss IMPRESSION: No focal mass or fluid collection in the left lower back Electronically Signed: Alex Pruitt MD at 22:49 EDT , Service support ,
== END ==
PROVIDERS: PCP Internal Medicine; Referring Provider Internal Medicine; Visit Provider Internal Medicine
DX: R22.2 Localized swelling, mass and lump, trunk (principal)
CPT/HCPCS: 76882

== ENCOUNTER → 2020-12-27 13:47 | Outpatient (CLI) | payer OTHER, SELFPAY ==
[2020-12-27 17:18] LABS: PSA,Total - Annual Screen 3.34 ng/mL (0.00-4.00); Thyroid Stim Hormone (TSH) 1.55 uIU/mL (0.358-3.74)
== END ==
PROVIDERS: PCP Internal Medicine; Referring Provider Nurse Practitioner Family; Visit Provider Nurse Practitioner Family
DX: E11.9 Type 2 diabetes mellitus without complications (principal); Z12.5 Encounter for screening for malignant neoplasm of prostate
CPT/HCPCS: 36415; 84153; 84443; G0103

== ENCOUNTER 2021-06-28 14:17 | Emergency (ER) | payer OTHER, SELFPAY ==
[2021-06-28] VITALS (7 sets, daily range): BP systolic 144–182; BP diastolic 72–78; PULSE 72–97; RESP 16–18; TEMP 36.2–36.9; O2SAT 95–98; BMI 29.5
--- NOTE | 2021-06-28 15:05 | EKG12_ITS ---
Test Reason : SOB Blood Pressure : / mmHG Vent. Rate : 086 BPM Atrial Rate : 086 BPM P-R Int : 164 ms QRS Dur : 094 ms QT Int : 388 ms P-R-T Axes : 046 002 036 degrees QTc Int : 464 ms Normal sinus rhythm Normal ECG Confirmed by JOSHUA DE LEON, JOSE GUADALUPE ([id number]), editorial project manager SONU ANNE ([id number]) on 07/03/2021 8:51:35 AM Referred By: VIET Confirmed By:JOSE GUADALUPE LEWIS MD
--- NOTE | 2021-06-28 15:20 | RAD_ITS ---
INDICATION: sob EXAMINATION/TECHNIQUE: X-RAY - XR Chest 2 Views COMPARISON: 11/17/2019. FINDINGS: LINES/DEVICES: None. LUNGS: Peribronchial cuffing and mild bilateral hilar prominence is seen, prominence of the bronchovascular interstitial lung markings is seen but no evidence of focal lung infiltrate or consolidation is seen, these findings demonstrate no significant increase in comparison to the prior study. No evidence of pleural effusion, no evidence of pneumothorax. MEDIASTINUM AND CARDIOVASCULAR STRUCTURES: Cardiac silhouette not enlarged. BONES AND SOFT TISSUES: Unremarkable. RAD/Chest PA and Lateral IMPRESSION: No radiographic evidence of acute cardiopulmonary disease. Electronically Signed: Ton Lagos MD at 15:39 EDT Reading Location ID and State: [facility] / [place] Tel , Service support ,
[2021-06-28 15:27] LABS: Absolute Lymphocyte Count 5.17 X10^3/uL (0.83-4.51); Absolute Neutrophil Count 6.8 X10^3/uL (2.0-7.7); Basophil# 0.13 X10^3/uL; Basophil% 0.8 % (0-1); Eosinophil# 0.62 X10^3/uL; Hematocrit 37.3 % (40-54); Hemoglobin 12.7 g/dL (13.0-16.5); Lymphocyte # 5.17 X10^3/ul (0.83-4.51); Lymphocyte % 33.5 % (19-41); Monocyte# 2.63 X10^3/uL; NRBC Flagged by Analyzer 0 % (0-5); Neutrophil # 6.83 X10^3/uL (2.7-7.7); Neutrophil % 44.3 % (47-70); POSITIVE DIFFERENTIAL YES; POSITIVE MORPHOLOGY YES; Platelet Count 263 K/mm3 (150-450); RBC Distribution Width CV 13.1 % (11.6-14.6); RBC Distribution Width SD 44.7 fl (35.1-43.9); Red Blood Count 3.97 M/mm3 (4.6-6.2); White Blood Count 15.4 K/mm3 (4.4-11.0)
[2021-06-28 15:30] LABS: Differential Indicated SCAN CRITERIA MET
[2021-06-28 15:43] LABS: Anion Gap 6 (5-15); BUN 12 mg/dL (7-18); BUN/Creat Ratio 15.5 RATIO (10-20); Calcium,Total 8.5 mg/dL (8.5-10.1); Chloride 105 mmol/L (98-107); Creatinine, Serum 0.77 mg/dL (0.70-1.30); EST Glomerular Filtration Rate 109 mL/min (>60); Est Glom Filt Rate - Afr Amer 132 mL/min (>60); Glucose 296 mg/dL (74-106); Potassium 3.6 mmol/L (3.5-5.1); Sodium Level 136 mmol/L (136-145); Troponin-I HS < 3 pg/mL (3.0-78.0)
--- NOTE | 2021-06-28 15:44 | EX.ED.DYSGE1 ---
HPI History of Present Illness Chief Complaint: Shortness of Breath Informant: patient Narrative Narrative: 60-year-old male with history of hypertension diabetes mellitus type 2 presenting with flulike symptoms. Patient started having symptoms yesterday. He has headache, body aches, sweats, runny nose, cough with green sputum production, shortness of breath on exertion, racing heartbeat and a mild sore throat. Did not take any medications prior to arrival today. Denies any swelling of his legs. Denies any chest pain. Denies any fever. 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 No other complaints at this time. [facility] Medical History Allergies Back pain COVID-19 Essential (primary) hypertension Groin abscess History of blood transfusion History of seizures as a child History of TIA (transient ischemic attack) Hyperlipidemia Lipoma of forehead Mass of face Nonrheumatic mitral (valve) insufficiency Osteoarthritis Pneumonia Trevor Barrett syndrome (geniculate herpes zoster) Rheumatoid arthritis Rheumatoid arthritis Right trigeminal neuralgia Screening PSA (prostate specific antigen) Stroke Type II diabetes mellitus Home Medications blood sugar diagnostic #100 each 09/09/18 [Rx Last Taken Unknown] blood-glucose meter #1 each 09/09/18 [Rx Last Taken Unknown] lancets 28 gauge #200 each 09/09/18 [Rx Last Taken Unknown] epinephrine 0.3 mg IM DAILY PRN 01/25/20 [History Last Taken Unknown] aspirin 325 mg tablet 325 mg PO DAILY 07/04/20 [History Last Taken Unknown] icosapent ethyl 1 gram capsule 2 g PO BID #120 cap 09/12/20 [Rx Last Taken Unknown] amlodipine 5 mg tablet 5 mg PO DAILY #90 tablet 12/27/20 [Rx Last Taken Unknown] atorvastatin 80 mg tablet 80 mg PO DAILY #30 tablet 12/27/20 [Rx Last Taken Unknown] folic acid 1 mg tablet 3 mg PO DAILY tab 12/27/20 [History Last Taken Unknown] glimepiride 4 mg tablet 4 mg PO QAM #90 tablet 12/27/20 [Rx Last Taken Unknown] losartan 25 mg tablet 37.5 mg PO DAILY 90 Days #135 tablet 12/27/20 [Rx Last Taken Unknown] metformin 1,000 mg tablet 1,000 mg PO BID #180 tablet 12/27/20 [Rx Last Taken Unknown] methotrexate sodium 2.5 mg tablet 15 mg PO QWEEK tab 12/27/20 [History Last Taken Unknown] metoprolol tartrate 25 mg tablet 12.5 mg PO BID #90 tablet 12/27/20 [Rx Last Taken Unknown] semaglutide 0.5 mg SUBCUT QWEEK #1.5 ml 12/27/20 [Rx Last Taken Unknown] fenofibrate 160 mg tablet 160 mg PO DAILY #90 tab 12/28/20 [Rx Last Taken Unknown] Allergy/AdvReac Type Severity Reaction Status Date / Time pneumococcal vaccine Allergy Intermediate Rash & Verified 06/28/21 14:19 [From Pneumovax 23] Swelling james seed Allergy Rash Verified 06/28/21 14:19 Family History Sister Diabetes Hypertension High cholesterol blood clots Cardiovascular disease Brother Myocardial infarction High cholesterol Heart disease TIA (transient ischemic attack) Cardiovascular disease Mother Myocardial infarction Hypertension Arthritis History of blood transfusion Heart disease Kidney disease Cardiovascular disease Father High cholesterol CVA (cerebral vascular accident) blood clots Cardiovascular disease Grandmother CVA (cerebral vascular accident) Surgical History History of appendectomy History of excision of lesion History of lymphoid or hematologic neoplasm History of splenectomy History of tonsillectomy Social History Smoking Status: Never smoker Tobacco: How many years used: 18 Electronic Cigarette Use: not used how long ago did patient quit smoking: quit 1994 second hand exposure: Yes (Smoked in the home ) alcohol intake: former year quit: 1994 substance use type: does not use what type of physical activity do you participate in: walking frequency: daily additional social history: does take aspirin does take ibuprofen ROS ROS ED Constitutional Constitutional ED: Reports chills and sweats; Denies fever(s) Eyes Eyes: Denies change in vision ENT ENT ED: Reports rhinorrhea and sore throat Cardiovascular Cardiovascular: Denies chest pain or palpitations Respiratory/Chest Respiratory/Chest: Reports cough, dyspnea and sputum Gastrointestinal Gastrointestinal: Denies abdominal pain, diarrhea, nausea or vomiting Genitourinary Genitourinary ED: Denies dysuria Musculoskeletal Musculoskeletal: Reports myalgias; Denies arthralgias or neck pain Integumentary Denies rash Neurologic Neurologic: Reports weakness; Denies headache(s) or paresthesias Psychiatric Psychiatric: Denies anxiety or depression EXAM Physical Exam Const Vital Signs: 06/28/21 14:18 06/28/21 14:33 06/28/21 14:34 Temperature 97.2 F L 98.4 F Temperature Source Temporal Temporal Pulse Rate 97 95 Respiratory Rate 18 18 Respiratory Effort Short of Breath Respiratory Depth Normal Respiratory Pattern Normal Blood Pressure 182/72 H 156/75 H Blood Pressure Mean 108 102 Pulse Ox 96 96 Oxygen Delivery Method Room Air Room Air Room Air 06/28/21 15:21 06/28/21 16:09 Temperature 98.4 F 98.4 F Temperature Source Temporal Temporal Pulse Rate 76 72 Respiratory Rate 16 18 Respiratory Effort Respiratory Depth Respiratory Pattern Blood Pressure 144/78 H 145/78 H Blood Pressure Mean 100 100 Pulse Ox 97 96 Oxygen Delivery Method Room Air Room Air Positive well nourished and well developed General Appearance ED: well developed and NAD HEENT Reports TM's clear and moist mucous membranes HEENT Narrative: Mild erythema the posterior oropharynx Negative for trauma Tympanic Membrane ED: Yes TM's clear Eyes PERRL and EOMs intact bilaterally Neck supple and no JVD Neck Narrative: Bilateral superior anterior cervical chain lymphadenopathy present Chest Wall inspection of chest normal Resp normal respiratory effort and clear to auscultation bilaterally Cardio regular rate, regular rhythm and no murmurs GI normal to inspection, nondistended, normoactive bowel sounds and non-tender Palpation: soft Back/Spine no CVA tenderness Extremity normal to inspection General Extremety ED: Negative for edema or tenderness General Extremity: Negative for edema Neuro oriented x3 and no sensory deficits noted Sensorium / Orientation: alert Motor Exam: strength 5/5 throughout; Negative for general weakness Psych mental status grossly normal Skin no rashes or lesions noted and no wounds MDM MDM MDM Narrative Medical decision making narrative: Patient evaluated for generalized malaise, cough and flulike symptoms. Patient appears nontoxic with no acute distress. History of diabetes, hypertension and rheumatoid arthritis on methotrexate. Physical exam is benign. No IV source of symptoms. Work-up does show white blood cell count of 15.4 however patient does have a history of a leukocytosis. He does have a slight monocyte predominance. Chest x-rays not show any acute process. COVID and flu rapid swabs are negative. Cardiac work-up is normal. No signs of fluid overload. I suspect his presentation is likely viral nature. There is no obvious source of bacterial infection at this time. Does not have any urinary symptoms. Patient will be discharged with symptomatic treatments. He is given IV fluids and Toradol in the ER. He is counseled return precaution. Is given a work note for today and tomorrow. Lab Data Attestation: I reviewed the patient's lab results. Labs: Laboratory Results - last 24 hr 06/28/21 06/28/21 06/28/21 15:15 15:15 15:15 WBC 15.4 H RBC 3.97 L Hgb 12.7 L Hct 37.3 L MCV 94.0 MCH 32.0 MCHC 34.0 RDW Std Deviation 44.7 H RDW Coeff of Linh 13.1 Plt Count 263 MPV 11.0 Immature Gran % (Auto) 0.400 Neut % (Auto) 44.3 L Lymph % (Auto) 33.5 Long % (Auto) 17.0 H Eos % (Auto) 4.0 Baso % (Auto) 0.8 Absolute Neuts (auto) 6.8 Absolute Lymphs (auto) 5.17 H Nucleated RBC % 0 Differential Comment SCANNED Diff Path Review May foll Sodium 136 Potassium 3.6 Chloride 105 Carbon Dioxide 25.0 Anion Gap 6 BUN 12 Creatinine 0.77 Estim Creat Clear Calc 103.30 Est GFR (MDRD) Af Amer 132 Est GFR (MDRD) Non-Af 109 BUN/Creatinine Ratio 15.5 Glucose 296 H Calcium 8.5 Troponin I High Sens < 3 L B-Natriuretic Peptide 19.6 Radiography Chest X-Ray - ED: 2 View, Read by ED Physician, Read by Radiologist and No Acute Disease Diagnostic Testing: Clinical Impression(s) from Imaging Studies Chest X-Ray 06/28/21 15:20 IMPRESSION: No radiographic evidence of acute cardiopulmonary disease. Electronically Signed: Ton Lagos MD at 15:39 EDT , Rhythm Strip Rhythm Strip: Sinus Rhythm Rate: 86 Ectopy: None EKG Initial EKG: Attestation: I personally reviewed and interpreted this EKG as follows: Interpretation: Sinus Rhythm Comments: Normal sinus rhythm at a rate of 86 Normal axis Normal intervals Normal ST segments Discharge Plan Triage Chief Complaint: Shortness of Breath ED Provider: Flora Son Dx/Rx/DC Orders Clinical Impression: Viral illness, Malaise and fatigue Instructions: ED Viral Syndrome (Adult) Prescriptions: No Action (DME) FreeStyle Lite Strips Strip See Rx Instructions .ROUTE .MEDSUPPLY Qty: 100 RF: 3 (DME) blood-glucose meter [FreeStyle Lite Meter] Kit See Rx Instructions .ROUTE .MEDSUPPLY Qty: 1 RF: 0 (DME) lancets [FreeStyle Lancets] 28 gauge misc See Rx Instructions .ROUTE .MEDSUPPLY Qty: 200 RF: 3 aspirin 325 mg tablet 325 mg PO DAILY RF: 0 folic acid 1 mg tablet 3 mg PO DAILY RF: 0 Ozempic 0.25 mg or 0.5 mg(2 mg/1.5 mL) pen injector 0.5 mg subcut QWEEK Qty: 1.5 RF: 3 amlodipine 5 mg tablet 5 mg PO DAILY Qty: 90 RF: 3 atorvastatin 80 mg tablet 80 mg PO DAILY Qty: 30 RF: 3 glimepiride 4 mg tablet 4 mg PO QAM Qty: 90 RF: 3 losartan 25 mg tablet 37.5 mg PO DAILY 90 Days Qty: 135 RF: 3 metformin 1,000 mg tablet 1,000 mg PO BID Qty: 180 RF: 3 metoprolol tartrate 25 mg tablet 12.5 mg PO BID Qty: 90 RF: 3 epinephrine 0.3 MG syringe 0.3 mg IM DAILY PRN (Reason: allergic reaction ) RF: 0 methotrexate sodium 2.5 mg tablet 15 mg PO QWEEK RF: 0 Vascepa 1 gram capsule 2 g PO BID Qty: 120 RF: 4 fenofibrate 160 mg tablet 160 mg PO DAILY Qty: 90 RF: 1 Primary Care Provider: Iftikhar Carlos Referrals: Iftikhar Carlos MD [Primary Care Provider] - Disposition Disposition: Home, Self Care
[2021-06-28 15:53] LABS: Differential Comment SCANNED
[2021-06-28 15:54] LABS: BNP,B-Type NATRIURETIC PEPTIDE 19.6 pg/mL (0-100)
[2021-06-28] MEDS: 0.9% Normal Saline 1,000 ML 999 ML IV (16:11)
[2021-06-28] MEDS: Ketorolac 15 MG/ML Vial IV (16:11)
[2021-06-29 13:57] LABS: Pathologist Review Reviewed
== END 2021-06-28 17:30 | disposition home or self-care (01) ==
PROVIDERS: Emergency Provider Emergency Medicine; PCP Internal Medicine; Visit Provider Emergency Medicine
DX: B34.9 Viral infection, unspecified (principal); G11.19 Other early-onset cerebellar ataxia; M06.9 Rheumatoid arthritis, unspecified; E11.9 Type 2 diabetes mellitus without complications; R06.02 Shortness of breath; I10 Essential (primary) hypertension; R53.81 Other malaise; Z87.891 Personal history of nicotine dependence; R51.9 Headache, unspecified; Z86.16 Personal history of COVID-19; Z86.73 Personal history of transient ischemic attack (TIA), and cerebral infarction without residual deficits; E78.5 Hyperlipidemia, unspecified; Z87.01 Personal history of pneumonia (recurrent); I34.0 Nonrheumatic mitral (valve) insufficiency; M19.90 Unspecified osteoarthritis, unspecified site; R05.9 Cough, unspecified; J34.89 Other specified disorders of nose and nasal sinuses; R61 Generalized hyperhidrosis; Z79.82 Long term (current) use of aspirin; Z79.84 Long term (current) use of oral hypoglycemic drugs; Z79.899 Other long term (current) drug therapy; R59.0 Localized enlarged lymph nodes
CPT/HCPCS: 71046; 80048; 83880; 84484; 85025; 87428; 93005; 96361; 96374; 99283

== ENCOUNTER → 2021-10-16 | Outpatient (CLI) | payer OTHER, SELFPAY ==
[2021-10-16 11:29] LABS: Absolute Lymphocyte Count 6.19 X10^3/uL (0.83-4.51); Absolute Neutrophil Count 5.3 X10^3/uL (2.0-7.7); Basophil# 0.11 X10^3/uL; Basophil% 0.8 % (0-1); Eosinophils% 5.8 % (0-5); Hematocrit 37.9 % (40-54); Hemoglobin 12.5 g/dL (13.0-16.5); Lymphocyte # 6.19 X10^3/ul (0.83-4.51); Lymphocyte % 44.5 % (19-41); Mean Corpuscular Hgb 31.4 pg (27.0-32.0); Mean Corpuscular Volume 95.2 fL (80-94); Mean Platelet Vol. 11.4 fl (6.2-12.0); Monocyte# 1.42 X10^3/uL; Monocyte% 10.2 % (0-10); NRBC Flagged by Analyzer 0 % (0-5); Neutrophil # 5.34 X10^3/uL (2.7-7.7); Neutrophil % 38.4 % (47-70); POSITIVE DIFFERENTIAL YES; POSITIVE MORPHOLOGY YES; Platelet Count 412 K/mm3 (150-450); RBC Distribution Width SD 48.6 fl (35.1-43.9); Red Blood Count 3.98 M/mm3 (4.6-6.2); White Blood Count 13.9 K/mm3 (4.4-11.0)
[2021-10-16 11:39] LABS: Differential Indicated SCAN CRITERIA MET
[2021-10-16 11:55] LABS: Platelet Estimate ADEQUATE (ADEQ); Red Cell Morphology NORM C+C NORMAL (NORM C&C)
== END | disposition home or self-care (01) ==
LOC: LAB 09:44
PROVIDERS: PCP Internal Medicine; Referring Provider Internal Medicine Rheumatology; Visit Provider Internal Medicine Rheumatology
DX: D58.2 Other hemoglobinopathies (principal)
CPT/HCPCS: 36415; 85025

== ENCOUNTER → 2021-11-14 | Outpatient (CLI) | payer OTHER, SELFPAY | END | disposition home or self-care (01) | LOC: LABSPEC 09:27 | PROVIDERS: PCP Internal Medicine; Referring Provider Nurse Practitioner Family; Visit Provider Nurse Practitioner Family | DX: R05.9 Cough, unspecified (principal) | CPT/HCPCS: 87635; U0003; U0005 ==

== ENCOUNTER → 2022-02-21 | Outpatient (CLI) | payer OTHER, SELFPAY | END | disposition home or self-care (01) | LOC: LABSPEC 09:08 | PROVIDERS: PCP Internal Medicine; Referring Provider Nurse Practitioner Family; Visit Provider Nurse Practitioner Family | DX: R05.9 Cough, unspecified (principal) | CPT/HCPCS: 87635; U0003; U0005 ==

== ENCOUNTER → 2022-03-26 | Outpatient (CLI) | payer OTHER, SELFPAY | END | disposition home or self-care (01) | LOC: BIMLAB 09:55 | PROVIDERS: PCP Internal Medicine; Referring Provider Nurse Practitioner Family; Visit Provider Nurse Practitioner Family | DX: R05.9 Cough, unspecified (principal); J02.9 Acute pharyngitis, unspecified | CPT/HCPCS: 87635; U0003; U0005 ==

== ENCOUNTER 2022-06-02 16:15 | Observation (INO) | payer OTHER, SELFPAY ==
[2022-06-02] VITALS (7 sets, daily range): BP systolic 139–171; BP diastolic 59–79; PULSE 66–80; RESP 15–18; TEMP 36.2–36.6; O2SAT 94–98; BMI 30.2; BMI 29.7
--- NOTE | 2022-06-02 16:31 | CT_ITS ---
We are attempting to reach an attending provider to discuss findings. An addendum with communication details will be sent when the communication is complete. STUDY: CT BRAIN WITHOUT CONTRAST REASON FOR EXAM: Male, 61 years old. Neuro deficit, acute, stroke suspected RADIATION DOSAGE (If Supplied By Facility): CTDIvol = ( ) mGy, DLP = ( 872.68 ) mGycm TECHNIQUE: Transaxial CT imaging of the brain was performed without administration of intravenous contrast material. Individualized dose optimization techniques were used for this CT. COMPARISON: CT brain January 25, 2020 FINDINGS: Normal soft tissue structures. Normal calvarium. Normal size ventricles and extra-axial spaces for the patient''s age. Normal white matter tracts of the cerebral hemispheres. Normal basal ganglia and thalami. Normal brainstem. Normal cerebellum. There is no intracranial hemorrhage. There are no findings of an acute ischemic infarction. Normal visualized paranasal sinuses. CT/STROKE Brain/Head without Cont IMPRESSION: Normal unenhanced CT scan of the brain. Electronically Signed: Darrin Mata MD at 17:37 EDT ,
--- NOTE | 2022-06-02 16:31 | EKG12_ITS ---
Test Reason : WEAKNESS/NUMBNESS Blood Pressure : / mmHG Vent. Rate : 074 BPM Atrial Rate : 074 BPM P-R Int : 148 ms QRS Dur : 092 ms QT Int : 424 ms P-R-T Axes : 030 -03 016 degrees QTc Int : 470 ms Normal sinus rhythm Minimal voltage criteria for LVH, may be normal variant ( R in aVL ) Borderline ECG Confirmed by SHARA DE LEON, BRANDEN ([id number]), editor house organ SONU ANNE ([id number]) on 06/04/2022 8:39:23 AM Referred By: CECILIA Confirmed By:BRANDEN OLMEDO MD
[2022-06-02 17:06] LABS: Absolute Lymphocyte Count 7.75 X10^3/uL (0.83-4.51); Absolute Neutrophil Count 4.9 X10^3/uL (2.0-7.7); Basophil# 0.14 X10^3/uL; Basophil% 0.9 % (0-1); Eosinophil# 1.33 X10^3/uL; Eosinophils% 8.3 % (0-5); Hematocrit 38.5 % (40-54); Lymphocyte # 7.75 X10^3/ul (0.83-4.51); Lymphocyte % 48.6 % (19-41); Mean Corp Hgb Conc 33.8 g/dL (32-36); Mean Corpuscular Hgb 30.8 pg (27.0-32.0); Mean Corpuscular Volume 91.2 fL (80-94); Monocyte# 1.76 X10^3/uL; NRBC Flagged by Analyzer 0 % (0-5); Neutrophil # 4.93 X10^3/uL (2.7-7.7); Neutrophil % 30.9 % (47-70); POSITIVE DIFFERENTIAL YES; Platelet Count 350 K/mm3 (150-450); RBC Distribution Width CV 13.2 % (11.6-14.6); RBC Distribution Width SD 44.3 fl (35.1-43.9); Red Blood Count 4.22 M/mm3 (4.6-6.2)
[2022-06-02 17:09] LABS: Differential Indicated SCAN CRITERIA MET
[2022-06-02 17:16] LABS: International Normalized Ratio 0.9; Partial Thromboplast Time 30.3 Seconds (24.1-36.2); Prothrombin Time (Protime)PT. 12.2 SECONDS (11.7-14.9)
--- NOTE | 2022-06-02 17:24 | RAD_ITS ---
STUDY: X-RAY CHEST REASON FOR EXAM: Male, 61 years old. Neuro deficit, acute, stroke suspected TECHNIQUE: Single frontal view of the chest. COMPARISON: June 28, 2021 FINDINGS: The lungs are clear and expanded. There is no demonstrated pleural abnormality. Normal size heart. Normal mediastinum and jamey. Normal visualized pulmonary arteries. Normal visualized aortic arch and descending thoracic aorta. Normal visualized thoracic spine. Normal visualized ribs, clavicles, and shoulders. There is no demonstrated abnormality of the visualized soft tissue structures of the upper abdomen. RAD/Chest 1 View IMPRESSION: Normal x-ray examination of the chest. Electronically Signed: Darrin Mata MD at 19:00 EDT ,
--- NOTE | 2022-06-02 17:24 | ED.VIS.STROK ---
HPI History of Present Illness Chief Complaint: Neuro S/Sx Narrative Narrative: 61-year-old male with history of TIA presenting with concern for TIA. He states that about 4 hours prior to arrival he was at [employer] reading the [facility] and he could not get the words out. He did not have any slurred speech but he was having trouble saying words. He noted that his upper lip felt numb and his right hand went numb. This lasted about 10 minutes and resolved. Patient states has had TIAs in the past. He denies being on aspirin or Plavix. He has followed up with Dr. Lozano in the past. Patient also complains of headache. He states he took ibuprofen prior to arrival. [facility] Medical History Allergies Back pain Cough COVID-19 Essential (primary) hypertension Groin abscess History of blood transfusion History of seizures as a child History of TIA (transient ischemic attack) Hyperlipidemia Lipoma of forehead Mass of face Nonrheumatic mitral (valve) insufficiency Osteoarthritis Pneumonia Trevor Barrett syndrome (geniculate herpes zoster) Rheumatoid arthritis Rheumatoid arthritis Right trigeminal neuralgia Screening PSA (prostate specific antigen) Stroke Type II diabetes mellitus Home Medications blood sugar diagnostic (FreeStyle Lite Strips) #100 ea 09/09/18 [Rx Last Taken Unknown] blood-glucose meter (FreeStyle Lite Meter kit) #1 ea 09/09/18 [Rx Last Taken Unknown] lancets 28 gauge (FreeStyle Lancets) #200 ea 09/09/18 [Rx Last Taken Unknown] epinephrine 0.3 mg/0.3 mL injection, auto-injector 0.3 mg IM DAILY PRN allergic reaction 01/25/20 [History Last Taken Unknown] aspirin 325 mg tablet 325 mg PO DAILY 07/04/20 [History Last Taken Unknown] hydroxychloroquine 200 mg tablet 400 mg PO DAILY 10/23/21 [History Last Taken Unknown] meloxicam 15 mg tablet 15 mg PO DAILY 10/23/21 [History Last Taken Unknown] icosapent ethyl 1 gram capsule (Vascepa) 2 g PO BID #120 caps 01/29/22 [Rx Last Taken Unknown] amlodipine 5 mg tablet 5 mg PO DAILY #90 tabs 02/27/22 [Rx Last Taken Unknown] atorvastatin 80 mg tablet 80 mg PO DAILY #90 tabs 02/27/22 [Rx Last Taken Unknown] dapagliflozin 10 mg tablet (Farxiga) 10 mg PO QAM #90 tabs 02/27/22 [Rx Last Taken Unknown] fenofibrate 160 mg tablet 160 mg PO DAILY #90 tabs 02/27/22 [Rx Last Taken Unknown] glimepiride 4 mg tablet 4 mg PO QAM #90 tabs 02/27/22 [Rx Last Taken Unknown] losartan 25 mg tablet 37.5 mg PO DAILY 3 months #135 tabs 02/27/22 [Rx Last Taken Unknown] metformin 1,000 mg tablet 1,000 mg PO BID #180 tabs 02/27/22 [Rx Last Taken Unknown] metoprolol tartrate 25 mg tablet 12.5 mg PO BID #90 tabs 02/27/22 [Rx Last Taken Unknown] albuterol sulfate 90 mcg/actuation aerosol inhaler (ProAir HFA) 1 - 2 puff inhalation Q6H PRN shortness of breath or wheezing #8.5 grams 03/26/22 [Rx Last Taken Unknown] nirmatrelvir 300 mg (150 mg x2)-ritonavir 100 mg tablet,dose pack(EUA) (Paxlovid) See Rx Instructions PO .COMPLEX #30 tabs 03/26/22 [Rx Last Taken Unknown] Allergy/AdvReac Type Severity Reaction Status Date / Time pneumococcal vaccine Allergy Intermediate Rash & Verified 06/02/22 16:18 [From Pneumovax ] Swelling james seed Allergy Rash Verified 06/02/22 16:18 Family History Sister Diabetes Hypertension High cholesterol blood clots Cardiovascular disease Brother Myocardial infarction High cholesterol Heart disease TIA (transient ischemic attack) Cardiovascular disease Mother Myocardial infarction Hypertension Arthritis History of blood transfusion Heart disease Kidney disease Cardiovascular disease Father High cholesterol CVA (cerebral vascular accident) blood clots Cardiovascular disease Grandmother CVA (cerebral vascular accident) Surgical History History of appendectomy History of excision of lesion History of lymphoid or hematologic neoplasm History of splenectomy History of tonsillectomy Social History Smoking Status: Never smoker Tobacco: How many years used: 18 Electronic Cigarette Use: not used how long ago did patient quit smoking: quit 1994 second hand exposure: Yes (Smoked in the home ) alcohol intake: former year quit: 1994 substance use type: does not use what type of physical activity do you participate in: walking frequency: daily additional social history: does take aspirin does take ibuprofen EXAM Physical Exam Const Vital Signs: 06/02/22 16:16 06/02/22 17:12 06/02/22 17:35 Temperature 97.2 F L Temperature Source Temporal Pulse Rate 80 71 Respiratory Rate 18 15 Blood Pressure 166/66 H 171/72 H Blood Pressure Mean 99 105 Pulse Ox 96 97 96 Oxygen Delivery Method Room Air Room Air Room Air 06/02/22 18:55 Temperature 97.1 F L Temperature Source Temporal Pulse Rate 68 Respiratory Rate 16 Blood Pressure 139/70 H Blood Pressure Mean 93 Pulse Ox 98 Oxygen Delivery Method Room Air Positive well nourished General Appearance ED: NAD HEENT Reports moist mucous membranes Eyes PERRL and EOMs intact bilaterally Neck no lymphadenopathy Resp normal respiratory effort and clear to auscultation bilaterally Auscultation: Negative for rales, rhonchi or wheezes Cardio Rate: regular rate Extremity normal to inspection Neuro oriented x3 and CN's II-XII intact bilaterally Sensorium / Orientation: alert Motor Exam: strength 5/5 throughout NIHSS NIHSS Initial: 1a Level of Consciousness: 0 1b LOC Questions (Score 2 if aphasic/stupor): 0 1c LOC Commands (Only score 1st attempt): 0 2 Best Gaze (If aphasic, use reflexive mvmts.): 0 3 Visual: 0 4 Facial Palsy: 0 5 Motor Arm Right (UN = amputation/fusion): 0 5 Motor Arm Left: 0 6 Motor Leg Right: 0 6 Motor Leg Left: 0 7 Limb ataxia (Only + if out of proportion): 0 8 Sensory (Aphasia/stupor=0 or 1, coma=2): 0 9 Best Language: 0 10 Dysarthria (mute, coma=2, intubated=UN): 0 11 Extinction and Inattention (only scored if +): 0 Total Score: 0 MDM MDM MDM Narrative Medical decision making narrative: Patient presenting with TIA symptoms. He states he is not on aspirin or Plavix. Patient complains of headache as well which started after the TIA. No visual complaints. NIH stroke scale score of 0. Differential includes stroke, intracranial hemorrhage, migraine. CBC to assess white blood cell count, hemoglobin, platelets, differential. PT/INR are obtained as well. BMP to assess renal function, electrolytes, glucose, anion gap. High-sensitivity troponin was added. EKG was obtained and shows a normal sinus rhythm at 74 bpm without sign of ischemic change or dysrhythmia. Chest x-ray shows no acute process mitral rotation. Radiology interpretation agrees. CBC came back with a leukocytosis of 16.0. Hemoglobin macular stable. No left shift. Renal function and electrolytes unremarkable. PT/INR normal. High-sensitivity troponin is 4. CT brain interpreted as negative for stroke or intracranial hemorrhage. Given patient's symptoms I feel he need to be admitted for MRI and further studies. Patient amenable to this. Impression: 1. TIA Lab Data Labs: Laboratory Results - last 24 hr 06/02/22 06/02/22 06/02/22 16:50 16:50 16:50 WBC 16.0 H RBC 4.22 L Hgb 13.0 Hct 38.5 L MCV 91.2 MCH 30.8 MCHC 33.8 RDW Std Deviation 44.3 H RDW Coeff of Linh 13.2 Plt Count 350 MPV 11.0 Immature Gran % (Auto) 0.300 Neut % (Auto) 30.9 L Lymph % (Auto) 48.6 H [place] % (Auto) 11.0 H Eos % (Auto) 8.3 H Baso % (Auto) 0.9 Absolute Neuts (auto) 4.9 Absolute Lymphs (auto) 7.75 H Nucleated RBC % 0 Differential Comment SCANNED PT 12.2 INR 0.9 APTT 30.3 Sodium 136 Potassium 3.9 Chloride 105 Carbon Dioxide 24.0 Anion Gap 7 BUN 19 H Creatinine 0.94 Estim Creat Clear Calc 83.57 Est GFR (MDRD) Af Amer 106 Est GFR (MDRD) Non-Af 87 BUN/Creatinine Ratio 20.3 H Glucose 171 H Calcium 8.7 Troponin I High Sens 4 POC Glucose 06/02/22 17:07 WBC RBC Hgb Hct MCV MCH MCHC RDW Std Deviation RDW Coeff of Linh Plt Count MPV Immature Gran % (Auto) Neut % (Auto) Lymph % (Auto) [place] % (Auto) Eos % (Auto) Baso % (Auto) Absolute Neuts (auto) Absolute Lymphs (auto) Nucleated RBC % Differential Comment PT INR APTT Sodium Potassium Chloride Carbon Dioxide Anion Gap BUN Creatinine Estim Creat Clear Calc Est GFR (MDRD) Af Amer Est GFR (MDRD) Non-Af BUN/Creatinine Ratio Glucose Calcium Troponin I High Sens POC Glucose 159 H Radiography Diagnostic Testing: Clinical Impression(s) from Imaging Studies Brain CT 06/02/22 16:31 IMPRESSION: Normal unenhanced CT scan of the brain. Electronically Signed: Darrin Mata MD at 17:37 EDT Reading Location ID and State: [address] [place] [address] , Service support , ADDENDUM: 06/02/22 1745 IMPRESSION: Normal unenhanced CT scan of the brain. N.B. : The above Results were Read Back by Darrin Mata MD to Lyndon Winston MD, and understanding confirmed on 06/02/2022 17:38:52 (ET). Electronically Signed: Darrin Mata MD at 17:37 EDT Reading Location ID and State: [facility] / [place] , Service support , Discharge Plan Triage Chief Complaint: Neuro S/Sx ED Provider: Lyndon Winston Dx/Rx/DC Orders Prescriptions: No Action (DME) FreeStyle Lite Strips Strip See Rx Instructions .ROUTE .MEDSUPPLY Qty: 100 3RF Rx Instructions: check blood glucose daily for type 2 DM (DME) blood-glucose meter [FreeStyle Lite Meter] Kit See Rx Instructions .ROUTE .MEDSUPPLY Qty: 1 0RF Rx Instructions: As directed, check blood glucose daily for type 2 DM (DME) lancets [FreeStyle Lancets] 28 gauge misc See Rx Instructions .ROUTE .MEDSUPPLY Qty: 200 3RF Rx Instructions: check blood glucose daily for type 2 DM aspirin 325 mg tablet 325 mg PO DAILY hydroxychloroquine 200 mg tablet 400 mg PO DAILY meloxicam 15 mg tablet 15 mg PO DAILY albuterol sulfate [ProAir HFA] 90 mcg/actuation HFA aerosol inhaler 1 - 2 puff inhalation Q6H PRN (Reason: shortness of breath or wheezing) Qty: 8.5 1RF Paxlovid (EUA) 300 mg (150 mg x 2)-100 mg tablets,dose pack See Rx Instructions PO .COMPLEX Qty: 30 0RF Rx Instructions: take TWO 150 mg tablets of nirmatrelvir with ONE 100 mg tablet of ritonavir twice daily for 5 days PO epinephrine 0.3 MG syringe 0.3 mg IM DAILY PRN (Reason: allergic reaction ) Vascepa 1 gram capsule 2 g PO BID Qty: 120 4RF amlodipine 5 mg tablet 5 mg PO DAILY Qty: 90 3RF atorvastatin 80 mg tablet 80 mg PO DAILY Qty: 90 3RF Farxiga 10 mg tablet 10 mg PO QAM Qty: 90 1RF fenofibrate 160 mg tablet 160 mg PO DAILY Qty: 90 1RF glimepiride 4 mg tablet 4 mg PO QAM Qty: 90 3RF losartan 25 mg tablet 37.5 mg PO DAILY 90 Days Qty: 135 3RF metformin 1,000 mg tablet 1,000 mg PO BID Qty: 180 3RF metoprolol tartrate 25 mg tablet 12.5 mg PO BID Qty: 90 3RF Primary Care Provider: Iftikhar Carlos Referrals: Iftikhar Carlos MD [Primary Care Provider] -
[2022-06-02 17:30] LABS: Bedside Glucose 159 mg/dL (74-106)
[2022-06-02 17:32] LABS: Differential Comment SCANNED
[2022-06-02 18:12] LABS: Anion Gap 7 (5-15); BUN 19 mg/dL (7-18); BUN/Creat Ratio 20.3 RATIO (10-20); Calcium,Total 8.7 mg/dL (8.5-10.1); Chloride 105 mmol/L (98-107); Creatinine, Serum 0.94 mg/dL (0.70-1.30); EST Glomerular Filtration Rate 87 mL/min (>60); Est Glom Filt Rate - Afr Amer 106 mL/min (>60); Estimated Creatinine Clearance 83.57 ml/min; Glucose 171 mg/dL (74-106); Potassium 3.9 mmol/L (3.5-5.1); Sodium Level 136 mmol/L (136-145); Troponin-I HS 4 pg/mL (3.0-78.0)
--- NOTE | 2022-06-02 18:46 | PCM.HP.STD ---
[facility] - General General Date of Service: 06/02/22 Chief Complaint: Facial numbness and R hand weakness HPI Narrative UMA WILKES, is a 61 M with reported history of TIAs, hypertension, type 2 diabetes mellitus, rheumatoid arthritis who presented to [facility] 06/02/2022 with numbness around his face and right hand numbness while he was at [employer] this morning. Upon presentation NIH was 0 and symptoms resolved but he did have a headache that was in the front of his head and been present for several hours. Given his risk factors and history CT head obtained with no acute abnormality and hospitalist called for TIA/stroke work-up. Evaluated patient with at bedside and he reports that he was in [employer] earlier today reading the Bible out loud and he began having difficulty with his words and getting them out also had numbness above his upper lip and right hand numbness up to the middle of his arm. This lasted roughly 10 minutes and then went away and has had a frontal headache since. Denies any nausea or vomiting, headache is somewhat waxed and waned and he has not tried anything for it. Only other symptom he endorses was a cold sweat and his reports his face was red during the episode but these went away. Had episodes where he has had parts of his face go numb in the past last one being several years ago. When asked about vision he did say he might of had slight blurred vision at the very onset of symptoms but denied any persistent or recurrent symptoms. In ED white blood cell count 16 with a hemoglobin of 13. Renal function and electrolytes unremarkable, high-sensitivity troponin was 4 and chest x-ray no acute abnormalities. [facility] Medical History Allergies Back pain Cough COVID-19 Essential (primary) hypertension Groin abscess History of blood transfusion History of seizures as a child History of TIA (transient ischemic attack) Hyperlipidemia Lipoma of forehead Mass of face Nonrheumatic mitral (valve) insufficiency Osteoarthritis Pneumonia Trevor Barrett syndrome (geniculate herpes zoster) Rheumatoid arthritis Rheumatoid arthritis Right trigeminal neuralgia Screening PSA (prostate specific antigen) Stroke Type II diabetes mellitus Home Medications blood sugar diagnostic (FreeStyle Lite Strips) #100 ea 09/09/18 [Rx Last Taken Unknown] blood-glucose meter (FreeStyle Lite Meter kit) #1 ea 09/09/18 [Rx Last Taken Unknown] lancets 28 gauge (FreeStyle Lancets) #200 ea 09/09/18 [Rx Last Taken Unknown] epinephrine 0.3 mg/0.3 mL injection, auto-injector 0.3 mg IM DAILY PRN allergic reaction 01/25/20 [History Last Taken Unknown] hydroxychloroquine 200 mg tablet 400 mg PO DAILY 10/23/21 [History Last Taken Unknown] meloxicam 15 mg tablet 15 mg PO DAILY 10/23/21 [History Last Taken Unknown] icosapent ethyl 1 gram capsule (Vascepa) 2 g PO BID #120 caps 01/29/22 [Rx Last Taken Unknown] amlodipine 5 mg tablet 5 mg PO DAILY #90 tabs 02/27/22 [Rx Last Taken Unknown] glimepiride 4 mg tablet 4 mg PO QAM #90 tabs 02/27/22 [Rx Last Taken Unknown] losartan 25 mg tablet 37.5 mg PO DAILY 3 months #135 tabs 02/27/22 [Rx Last Taken Unknown] metformin 1,000 mg tablet 1,000 mg PO BID #180 tabs 02/27/22 [Rx Last Taken Unknown] metoprolol tartrate 25 mg tablet 12.5 mg PO BID #90 tabs 02/27/22 [Rx Last Taken Unknown] albuterol sulfate 90 mcg/actuation aerosol inhaler (ProAir HFA) 1 - 2 puff inhalation Q6H PRN shortness of breath or wheezing #8.5 grams 03/26/22 [Rx Last Taken Unknown] atorvastatin 80 mg tablet (Lipitor) 80 mg PO DAILY 06/02/22 [History Last Taken Unknown] Allergy/AdvReac Type Severity Reaction Status Date / Time pneumococcal vaccine Allergy Intermediate Rash & Verified 06/02/22 16:18 [From Pneumovax ] Swelling james seed Allergy Rash Verified 06/02/22 16:18 Family History Sister Diabetes Hypertension High cholesterol blood clots Cardiovascular disease Brother Myocardial infarction High cholesterol Heart disease TIA (transient ischemic attack) Cardiovascular disease Mother Myocardial infarction Hypertension Arthritis History of blood transfusion Heart disease Kidney disease Cardiovascular disease Father High cholesterol CVA (cerebral vascular accident) blood clots Cardiovascular disease Grandmother CVA (cerebral vascular accident) Surgical History History of appendectomy History of excision of lesion History of lymphoid or hematologic neoplasm History of splenectomy History of tonsillectomy Social History Smoking Status: Never smoker Tobacco: How many years used: Electronic Cigarette Use: not used how long ago did patient quit smoking: quit 1994 second hand exposure: Yes (Smoked in the home ) alcohol intake: former year quit: 1994 substance use type: does not use what type of physical activity do you participate in: walking frequency: daily additional social history: does take aspirin does take ibuprofen ROS ROS Narrative General: Denies fever/chills HENT: Frontal headache, denies stuffy nose, denies sore throat EYES: Denies changes in vision Resp: Denies cough, denies shortness of breath Cardiac: Denies chest pain GI: Denies abdominal pain, denies changes in bowel, denies nausea/vomiting : Denies changes in urination Extremity: Denies swelling MSK: Denies weakness Neuro: Denies any further numbness or tingling, had right hand numbness up to mid arm and numbness above upper lip and a mustache distribution Heme: Denies any bleeding or bruising Skin: Denies rashes Psychiatric: No complaints voiced Vital Signs Vital Signs Vital Signs: 06/02/22 16:16 06/02/22 17:12 06/02/22 17:35 Temperature 97.2 F L Temperature Source Temporal Pulse Rate 80 71 Respiratory Rate 18 15 Blood Pressure 166/66 H 171/72 H Blood Pressure Mean 99 105 Pulse Ox 96 97 96 Oxygen Delivery Method Room Air Room Air Room Air Weight Weight: 92.9 kg Body Mass Index (BMI) 30.2 Physical Exam Narrative General: Alert, oriented, no apparent distress HEENT: Atraumatic, normocephalic Eyes: Anicteric, normal conjunctiva, extraocular movements intact, pupils equal Neck: Supple Respiratory: Clear to auscultation bilaterally, normal respiratory effort Cardiovascular: Regular rate and rhythm GI: Soft, nontender, nondistended Extremities: No edema Musculoskeletal: Strength 5 out of 5 in right upper extremity, 5 out of 5 left upper extremity, 5 out of 5 right lower extremity, 5 out of 5 left lower extremity Neuro: No overt focal neurological deficits, cranial nerves II through XII intact, [id number] without significant difficulty bilaterally Skin: No rashes appreciated Psych: Cooperative Results Lab / Micro Data Result Diagrams: 06/02/22 16:50 06/02/22 16:50 Labs: Laboratory Results - last 24 hr 06/02/22 16:50: WBC 16.0 H, RBC 4.22 L, Hgb 13.0, Hct 38.5 L, MCV 91.2, MCH 30.8, MCHC 33.8, RDW Std Deviation 44.3 H, RDW Coeff of Linh 13.2, Plt Count 350, MPV 11.0, Immature Gran % (Auto) 0.300, Neut % (Auto) 30.9 L, Lymph % (Auto) 48.6 H, [place] % (Auto) 11.0 H, Eos % (Auto) 8.3 H, Baso % (Auto) 0.9, Absolute Neuts (auto) 4.9, Absolute Lymphs (auto) 7.75 H, Nucleated RBC % 0, Differential Comment SCANNED 06/02/22 16:50: PT 12.2, INR 0.9, APTT 30.3 06/02/22 16:50: Sodium 136, Potassium 3.9, Chloride 105, Carbon Dioxide 24.0, Anion Gap 7, BUN 19 H, Creatinine 0.94, Estim Creat Clear Calc 83.57, Est GFR (MDRD) Af Amer 106, Est GFR (MDRD) Non-Af 87, BUN/Creatinine Ratio 20.3 H, Glucose 171 H, Calcium 8.7, Troponin I High Sens 4 06/02/22 17:07: POC Glucose 159 H Radiology Impression Brain CT 06/02/22 16:31 IMPRESSION: Normal unenhanced CT scan of the brain. Electronically Signed: Darrin Mata MD at 17:37 EDT , ADDENDUM: 06/02/22 3722 IMPRESSION: Normal unenhanced CT scan of the brain. N.B. : The above Results were Read Back by Darrin Mata MD to Lyndon Winston MD, and understanding confirmed on 06/02/2022 17:38:52 (ET). Electronically Signed: Darrin Mata MD at 17:37 EDT , Assessment & Plan Assessment/Plan (1) Right hand weakness: PLAN: Plan #Right hand and perioral numbness -NIH 0, symptoms resolved and now presently has headache and nonfocal exam/no other complaints -Admit to tele -CT head without acute changes -CTA head and neck -MRI -NIH q4hr -asa 324 given, 81 daily, statin 80 mg -Echo w/ bubble study -PT/OT/Speech eval -Lipid panel in the a.m. -Hold BP medications to allow for permissive hypertension for 24 hours unless SBP greater than 220 or DBP greater than 120 or until stroke is ruled out -Lovenox for DVT prophylaxis #Type 2 diabetes mellitus -Glucose checks and sliding scale insulin #DVT ppx: Lovenox subcu Krista Romero MD Time spent in the patient's overall evaluation,decision-making process, review of diagnostic data, adjustment of management, discussion with other providers, nursing nursing and ancillary staff involved in patient's care documentation, 60 minutes Charges/Coding Visit Charges Inpatient E&M: 12660 Init Hosp L2
--- NOTE | 2022-06-02 19:05 | CT_ITS ---
We are attempting to reach an attending provider to discuss findings. An addendum with communication details will be sent when the communication is complete. STUDY: CTA HEAD AND NECK WITH CONTRAST REASON FOR EXAM: Male, 61 years old. TIA RADIATION DOSAGE (If Supplied By Facility): CTDIvol = ( 23.39 ) mGy, DLP = ( 997.62 ) mGycm TECHNIQUE: CT angiography was performed with a multi-detector CT scanner. Data acquisition was obtained from the skull base through the vertex following intravenous administration of IV 100mL [id number]-[id number]. MIP images were reconstructed from the axial data set. Post-processing of the angiographic images was performed, with multiplanar reformation and 3D reconstruction. Individualized dose optimization techniques were used for this CT. COMPARISON: Noncontrast CT brain from today. FINDINGS: Normal bilateral petrous carotid arteries. Normal right cavernous carotid artery with a normal supraclinoid bifurcation. Normal left cavernous carotid artery with a normal supraclinoid bifurcation. Normal right A1 segments of the anterior cerebral artery. Normal left A1 segments of the anterior cerebral artery. 3 Millimeter aneurysm and tissue indicating artery. Normal bilateral A2 segments of the anterior cerebral arteries. Normal right M1 and M2 segments of the middle cerebral arteries, with a normal M1 bifurcation. Normal left M1 and M2 segments of the middle cerebral arteries, with a normal M1 bifurcation. There is non-visualization of the right posterior communicating artery (PCOM). There is non-visualization of the left posterior communicating artery (PCOM). Normal bilateral vertebral arteries. Normal basilar artery with a normal basilar bifurcation. The visualized bilateral superior cerebellar (SCA) arteries are normal. Normal bilateral P1, P2 and visualized P3 segments of the posterior cerebral arteries. There is no demonstrated aneurysm of the [place]. There is no demonstrated abnormality of the visualized brain. AORTIC ARCH: Normal visualized aortic arch. Normal origins of the brachiocephalic, left common carotid, and left subclavian arteries. RIGHT CAROTID ARTERIES: Normal right common carotid artery (CCA). Normal right common carotid bulb. Normal origin of the right internal carotid (ICA) artery without a hemodynamically significant stenosis. Normal visualized cervical portion of the right internal carotid artery. Normal origin of the right external carotid artery (ECA). LEFT CAROTID ARTERIES: Normal left common carotid artery (CCA). Normal left common carotid bulb. Normal origin of the left internal carotid (ICA) artery without a hemodynamically significant stenosis. Normal visualized cervical portion of the left internal carotid artery. Normal origin of the left external carotid artery (ECA). VERTEBRAL ARTERIES: Calcified plaque is moderate stenosis at the origin of the left vertebral artery. Left vertebral artery terminates as height. The right vertebral artery is dominant. 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 Left vertebral artery terminates as the PICA. Electronically Signed: Darrin Mata MD at 20:51 EDT ,
[2022-06-02] MEDS: Aspirin 81 MG TAB.CHEW 324 MG PO (19:10)
--- NOTE | 2022-06-02 20:58 | PCM.HOSP.N ---
Hospitalist Note Radiology called with results noting CTA H/N resulted with 3 mm anterior communicating aneurysm, moderate stenosis origin left vertebral artery, left vertebral artery terminates as the PICA.
[2022-06-02] MEDS: Acetaminophen 325 MG Tablet 650 MG PO (22:33)
[2022-06-02] MEDS: Atorvastatin Calcium 80 MG Tablet PO (22:33)
[2022-06-03] VITALS (7 sets, daily range): BP systolic 143–167; BP diastolic 61–83; PULSE 62–79; RESP 16–18; TEMP 36.3–36.8; O2SAT 93–98
[2022-06-03 00:51] LABS: Bedside Glucose 121 mg/dL (74-106)
[2022-06-03 05:49] LABS: Absolute Lymphocyte Count 6.23 X10^3/uL (0.83-4.51); Absolute Neutrophil Count 6.2 X10^3/uL (2.0-7.7); Basophil# 0.13 X10^3/uL; Basophil% 0.8 % (0-1); Eosinophils% 8.8 % (0-5); Hematocrit 40.5 % (40-54); Hemoglobin 13.5 g/dL (13.0-16.5); Lymphocyte # 6.23 X10^3/ul (0.83-4.51); Lymphocyte % 39.3 % (19-41); Mean Corp Hgb Conc 33.3 g/dL (32-36); Mean Corpuscular Hgb 31.1 pg (27.0-32.0); Mean Corpuscular Volume 93.3 fL (80-94); Mean Platelet Vol. 11.4 fl (6.2-12.0); Monocyte# 1.82 X10^3/uL; Monocyte% 11.5 % (0-10); NRBC Flagged by Analyzer 0 % (0-5); Neutrophil # 6.22 X10^3/uL (2.7-7.7); Neutrophil % 39.3 % (47-70); POSITIVE DIFFERENTIAL YES; POSITIVE MORPHOLOGY YES; Platelet Count 373 K/mm3 (150-450); RBC Distribution Width CV 13.5 % (11.6-14.6); RBC Distribution Width SD 46.1 fl (35.1-43.9); Red Blood Count 4.34 M/mm3 (4.6-6.2); White Blood Count 15.8 K/mm3 (4.4-11.0)
[2022-06-03 06:54] LABS: AST(SGOT) 17 U/L (15-37); Alanine Aminotransfer ALT/SGPT 23 U/L (16-61); Albumin, Serum 3.6 g/dL (3.2-5.0); Alkaline Phosphatase 64 U/L (45-117); Anion Gap 7 (5-15); BUN 18 mg/dL (7-18); BUN/Creat Ratio 28.7 RATIO (10-20); Chloride 106 mmol/L (98-107); Cholesterol 184 mg/dL (200); Creatinine, Serum 0.63 mg/dL (0.70-1.30); EST Glomerular Filtration Rate 139 mL/min (>60); Est Glom Filt Rate - Afr Amer 168 mL/min (>60); Estimated Creatinine Clearance 124.69 ml/min; Globulin 3.1 g/dL (2.2-4.2); Glucose 141 mg/dL (74-106); High Density Lipoprotein 43 mg/dL; Potassium 3.7 mmol/L (3.5-5.1); Protein, Total 6.7 g/dL (6.4-8.2); Sodium Level 137 mmol/L (136-145); Triglycerides 267 mg/dL; Very Low Density Lipoprotein 53 mg/dL (5-40)
[2022-06-03 07:07] LABS: Reactive Lymphocyte RARE
[2022-06-03 07:15] LABS: Bedside Glucose 144 mg/dL (74-106)
[2022-06-03] MEDS: Hydroxychloroquine 200 MG Tablet 400 MG PO (09:55)
[2022-06-03] MEDS: Aspirin 81 MG TAB.CHEW PO (09:56)
[2022-06-03] MEDS: Fenofibrate 145 MG Tablet PO (09:56)
[2022-06-03] MEDS: Enoxaparin 40 MG/0.4 ML Syringe SC (09:56)
[2022-06-03] MEDS: Empagliflozin 25 MG Tablet PO (09:56)
--- NOTE | 2022-06-03 10:00 | MRI_ITS ---
STUDY: MRI BRAIN WITHOUT CONTRAST REASON FOR EXAM: Male, 61 years old patient with signs and symptoms of TIA. TECHNIQUE: Standardized multiplanar fat and water weighted pulse sequences were obtained. COMPARISON: CT of the brain dated June 02, 2022. FINDINGS: Normal size of the ventricles and extra-axial spaces for the patient''s age. Normal white matter tracts of the supratentorial brain. There is no evidence for recent intracranial ischemia or other cause of cytotoxic edema on diffusion weighted imaging (DWI). Normal T2* images of the brain without demonstrated susceptibility artifact. There is no demonstrated hemosiderin stain. Normal bilateral basal ganglia. Normal thalami. There is no extra-axial fluid accumulation. Normal flow voids within the major intracranial circulation suggesting patency by spin echo criteria. Normal sella turcica, pituitary gland, infundibular stalk, optic chiasm and hypothalamus. Normal tectal plate and pineal gland. Normal midbrain, nigel and medulla. Normal cerebellum. Normal basal cisterns. Normal bilateral temporal bones. Normal bilateral internal auditory canals. No demonstrated orbital abnormality, within the constraints of a routine brain study. There is complete opacification of the maxillary sinuses possibly secondary to inspissated secretions. Normal calvarium and skull base. Normal visualized soft tissue structures. Normal visualized upper cervical spine. MRI/Brain without Contrast IMPRESSION: 1. No MR evidence for mass or acute infarct. 2. Severe chronic maxillary sinus disease. Electronically Signed: Lyndsey Sow MD at 13:12 EDT ,
[2022-06-03 12:11] LABS: Bedside Glucose 110 mg/dL (74-106)
--- NOTE | 2022-06-03 13:00 | RAD_ITS ---
PROCEDURE: Fluoroscopic guided Lumbar Puncture. DATE: June 04, 2022. CLINICAL INDICATION: Subarachnoid bleed. PHYSICIAN: Gurerero Torres M.D. MEDICATIONS: 1% lidocaine administered subcutaneously for local anesthesia. ACCESS SITE: Lower posterior back. NEEDLE: 22-gauge spinal needle. SPECIMEN: Approximately 12 mL clear]CSF fluid. FLUOROSCOPY TIME (if supplied): (0:36) minutes/seconds COMPLICATIONS: None immediate. The risks, benefits, and alternatives to the procedure were explained to the patient. The specific risks of bleeding, infection, and neurovascular injury were detailed and accepted. Witnessed informed consent was obtained. The patient was placed on the fluoroscopic table in the prone position. The level for needle entry was determined and marked. The overlying skin was cleaned and prepped in the usual sterile fashion. 2% lidocaine was administered subcutaneously for local anesthesia. Under fluoroscopic guidance a 22-gauge spinal needle was advanced. The thecal sac was entered at the L3- L4 vertebral level. The inner stylet was removed. There was spontaneous flow of clear CSF fluid. The patient was placed in a reversed Trendelenburg position. Approximately 12 mL of cerebrospinal fluid was collected using gravity. The specimen was collected and submitted to the laboratory for further evaluation. The needle was withdrawn,. Hemostasis was achieved and a sterile dressing placed. The patient tolerated the procedure well without any immediate complications. The patient was placed supine with head elevated and returned to the floor in stable condition. RAD/Dx Lumbar Puncture w/IMG Guide IMPRESSION: Successful fluoroscopic-guided lumbar puncture. Electronically Signed: Guerrero Torres MD at 13:47 EDT ,
[2022-06-03] MEDS: Acetaminophen 325 MG Tablet 650 MG PO (14:35)
--- NOTE | 2022-06-03 15:33 | CHAPLAIN ---
Type of Pastoral Visit _x__ Initial Visit ___ Follow-up Visit ___ On-call Visit ___ General Patient Visit ___ Spiritual Assessment ___ Family Conference ___ Bereavement ___ Rapid Response ___ Code Blue ___ Other (describe below) Pastoral Care Referral From _x__ Patient ___ Family ___ Nurse ___ Physician ___ Director Hedis ___ Kinesiotherapist ___ Other (describe below) Sacrament/Intervention _x__ Active listening ___ Anointing ___ Roman Catholic ___ Bereavement ___ Communion _x__ Stefany exploration ___ _x__ Life review _x__ Prayer ___ Reconciliation ___ Sacrament of Sick _x__ Supportive presence ___ Wedding ___ Other (describe below) Pastoral Comments 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
--- NOTE | 2022-06-03 17:17 | PN.HOSP_ITS ---
Reason for Visit Reason for Visit: Diagnoses Other symptoms and signs involving the musculoskeletal system (06/02/22) Subjective Subjective Feeling well today, headache has resolved, no further neurological symptoms Objective Data Objective Data Vital Signs: Vital Signs Temp Pulse Resp BP Pulse Ox O2 Del Method 98.0 F 62 16 156/71 H 97 Room Air 06/03/22 17:03 06/03/22 17:03 06/03/22 17:03 06/03/22 17:03 06/03/22 17:03 06/03/22 17:03 Oxygen Delivery Method Room Air Weight: 91.3 kg Body Mass Index (BMI) 29.7 Intake & Output: Intake and Output for Last 24 Hours 06/01/22 06/02/22 06/03/22 23:59 23:59 23:59 Intake Total 1000 / 1000 Balance 1000 / 1000 Lab / Micro Data Result Diagrams: 06/03/22 05:10 06/03/22 05:10 Labs: Laboratory Results - last 24 hr 06/02/22 16:50: Differential Comment SCANNED, Diff Path Review July06/02/22 16:50: PT 12.2, INR 0.9, APTT 30.3 06/02/22 16:50: Sodium 136, Potassium 3.9, Chloride 105, Carbon Dioxide 24.0, Anion Gap 7, BUN 19 H, Creatinine 0.94, Estim Creat Clear Calc 83.57, Est GFR (MDRD) Af Amer 106, Est GFR (MDRD) Non-Af 87, BUN/Creatinine Ratio 20.3 H, Glucose 171 H, Calcium 8.7, Troponin I High Sens 4 06/02/22 17:07: POC Glucose 159 H 06/02/22 22:29: POC Glucose 121 H 06/03/22 05:10: Sodium 137, Potassium 3.7, Chloride 106, Carbon Dioxide 24.0, Anion Gap 7, BUN 18, Creatinine 0.63 L, Estim Creat Clear Calc 124.69, Est GFR (MDRD) Af Amer 168, Est GFR (MDRD) Non-Af 139, BUN/Creatinine Ratio 28.7 H, Glucose 141 H, Calcium 9.0, Total Bilirubin 0.50, Direct Bilirubin 0.10, AST 17, ALT 23, Alkaline Phosphatase 64, Total Protein 6.7, Albumin 3.6, Globulin 3.1, Triglycerides 267 H, Cholesterol 184, LDL Cholesterol 88, VLDL Cholesterol 53 H, HDL Cholesterol 43, TSH 1.80 06/03/22 05:10: WBC 15.8 H, RBC 4.34 L, Hgb 13.5, Hct 40.5, MCV 93.3, MCH 31.1, MCHC 33.3, RDW Std Deviation 46.1 H, RDW Coeff of Linh 13.5, Plt Count 373, MPV 11.4, Immature Gran % (Auto) 0.300, Neut % (Auto) 39.3 L, Lymph % (Auto) 39.3, [place] % (Auto) 11.5 H, Eos % (Auto) 8.8 H, Baso % (Auto) 0.8, Absolute Neuts (auto) 6.2, Absolute Lymphs (auto) 6.23 H, Nucleated RBC % 0, Differential Comment COMMENT, Diff Path Review May , Reactive Lymphocytes RARE 06/03/22 06:43: POC Glucose 144 H 06/03/22 11:42: POC Glucose 110 H Radiography Diagnostic Testing: Radiology Impression Brain CT 06/02/22 16:31 IMPRESSION: Normal unenhanced CT scan of the brain. Electronically Signed: Darrin Mata MD at 17:37 EDT , ADDENDUM: 06/02/22 8595 IMPRESSION: Normal unenhanced CT scan of the brain. N.B. : The above Results were Read Back by Darrin Mata MD to Lyndon Winston MD, and understanding confirmed on 06/02/2022 17:38:52 (ET). Electronically Signed: Darrin Mata MD at 17:37 EDT Reading Location ID and State: [facility] / [place] , Service support , Chest X-Ray 06/02/22 17:24 IMPRESSION: Normal x-ray examination of the chest. 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 Left vertebral artery terminates as the PICA. 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 Left vertebral artery terminates as the PICA. N.B. : The above Results were Read Back by Darrin Mata MD to Nikkie No MD, and understanding confirmed on 06/02/2022 20:59:19 (ET). Electronically Signed: Darrin Mata MD at 20:51 EDT Reading Location ID and State: [facility] / [place] , Service support , Brain MRI 06/03/22 10:00 IMPRESSION: 1. No MR evidence for mass or acute infarct. 2. Severe chronic maxillary sinus disease. Electronically Signed: Lyndsey Sow MD at 13:12 EDT , Physical Exam Narrative General: Alert, oriented, no apparent distress HEENT: Atraumatic, normocephalic Eyes: extraocular movements grossly intact Neck: Supple Respiratory: normal respiratory effort Cardiovascular: no edema appreciated GI: nondistended Extremities: Moving all extremities Neuro: No overt focal neurological deficits Psych: Cooperative Assessment & Plan Assessment/Plan (1) Right hand weakness: PLAN: Plan #Right hand and perioral numbness -NIH 0, symptoms resolved and now presently has headache and nonfocal exam/no other complaints -Admit to tele -CT head without acute changes -CTA head and neck -MRI -NIH q4hr -asa 324 given, 81 daily, statin 80 mg -Echo w/ bubble study -PT/OT/Speech eval -Lipid panel in the a.m. -Hold BP medications to allow for permissive hypertension for 24 hours unless SBP greater than 220 or DBP greater than 120 or until stroke is ruled out -Lovenox for DVT prophylaxis -06/03: Spoke with neurologist who queries seizures and does not think these are TIAs given his history of similar presentation several times over several years and history of petit mall seizures when he was younger. However with the aneurysm and the headache that he had on presentation she recommends an LP with a cell count of tube 1 and tube 4 to assess for red cells. If positive would indicate aneurysm had blood on admission and he needs transferred for inpatient vascular neurology and if negative can follow-up with vascular neurology outpatient as well as his neurologist Dr. Lozano. Additionally she has high suspicion for seizures, recommended against medication at this time and ordering of an EEG. If EEG is positive begin Keppra, if both EEG and LP are negative she recommends aspirin 81 mg and discharging home with prescription for Keppra 500 mg twice daily that he is not supposed to take unless he has symptoms again. If symptoms recur he is supposed to start the medication and call his neurologist for a long EEG. She also advised no driving at this time. Additional studies for cytology and flow cytometry with LP. EEG and LP ordered #Type 2 diabetes mellitus -Glucose checks and sliding scale insulin #DVT ppx: DC subcu Lovenox for LP, SCDs Krista Romero MD Time spent in the patient's overall evaluation,decision-making process, review of diagnostic data, adjustment of management, discussion with other providers, nursing nursing and ancillary staff involved in patient's care documentation, 30 minutes Charges/Coding Visit Charges Inpatient E&M: 03231 Subs Hosp L2
[2022-06-03 17:25] LABS: Bedside Glucose 100 mg/dL (74-106)
--- NOTE | 2022-06-03 19:05 | ECHOCS_ITS ---
Version 2 Reason For Study: TIA/CVA Procedure This was a 2D Doppler, Color Flow transthoracic echocardiogram. The study was technically difficult. Exam performed portable in patient room. Left Ventricle Normal LV size. Left ventricular systolic function is normal. The estimated ejection fraction is 60 %. Stage 1 diastolic dysfunction. No regional wall motion abnormalities noted. Right Ventricle Normal RV size. Normal systolic function. Atria Normal left atrium. Normal right atrium. Mitral Valve Normal mitral valve. Tricuspid Valve Normal tricuspid valve. Aortic Valve The aortic valve is not well visualized. Pulmonic Valve The pulmonic valve is not well visualized. Great Vessels Normal aortic root. The pulmonary artery is normal size. Normal inferior vena cava. Pericardium/Pleural No pericardial effusion. Medication Diluted definity 2ml given slow IV push to enhance endocardial definition. MMode/2D Measurements & Calculations LVIDd: 5.1 cm IVSd: 1.2 cm Ao root diam: 3.1 cm LVIDs: 3.5 cm LVPWd: 1.1 cm RVDd: 3.4 cm FS: 31.8 % LAV(MOD-bp): 51.3 ml LVAd ap4: 35.8 cm2 LVAd ap2: 29.0 cm2 LAV(MOD-bp) Indexed: 24.8 ml/m2 LVLd ap4: 8.0 cm LVLd ap2: 7.5 cm LAV(MOD-sp2): 49.7 ml EDV(MOD-sp4): 131.3 ml EDV(MOD-sp2): 93.7 ml LAV(MOD-sp4): 49.4 ml EDV(sp4-el): 135.8 ml EDV(sp2-el): 94.6 ml LVAs ap4: 21.3 cm2 LVAs ap2: 20.3 cm2 LVLs ap4: 6.5 cm LVLs ap2: 6.8 cm ESV(MOD-sp4): 55.8 ml ESV(MOD-sp2): 50.0 ml ESV(sp4-el): 59.2 ml ESV(sp2-el): 51.2 ml EF(MOD-sp4): 57.5 % EF(MOD-sp2): 46.7 % EF(sp4-el): 56.4 % SV(MOD-sp4): 75.5 ml SV(MOD-sp2): 43.7 ml SV(sp4-el): 76.6 ml LA A4 area: 17.6 cm2 LA dimension(2D): 4.0 cm RA A4 area: 14.3 cm2 Time Measurements MV dec time: 0.21 sec Doppler Measurements & Calculations MV E max james: 86.3 cm/sec Lat Peak E' James: 12.1 cm/sec Med Peak E' James: 6.7 cm/sec MV A max james: 90.6 cm/sec E/E' lat: 7.2 E/E' med: 12.9 MV E/A: 0.95 MV V2 max: 87.8 cm/sec Ao V2 max: 96.8 cm/sec MV max P.1 mmHg MV dec slope: 421.8 cm/sec2 Ao max P.8 mmHg MV V2 mean: 65.6 cm/sec Ao V2 mean: 71.5 cm/sec MV mean P.9 mmHg Ao mean P.3 mmHg MV V2 VTI: 33.7 cm Ao V2 VTI: 24.2 cm AV (velocity ratio): 0.95 LV V1 max: 92.4 cm/sec PA V2 max: 72.7 cm/sec LV V1 max P.4 mmHg PA V2 mean: 56.0 cm/sec LV V1 mean P.3 mmHg LV V1 mean: 72.4 cm/sec LV V1 VTI: 23.1 cm ECHO/Echo Complete W/ Contrast Interpretation Summary Normal LV size. Left ventricular systolic function is normal. The estimated ejection fraction is 60 %. Stage 1 diastolic dysfunction. Contrast injection was performed. Ordering Physician: Krista Romero Referring Physician: Iftikhar Carlos Performed By: Rosy Mcclellan RCS
[2022-06-03] MEDS: Insulin Lispro 100 UNIT/ML INSULN.PEN SC (22:00)
[2022-06-03] MEDS: amLODIPine 5 MG Tablet PO (22:02)
[2022-06-03] MEDS: Metoprolol Tartrate 25 MG Tablet 12.5 MG PO (22:03)
[2022-06-03] MEDS: Atorvastatin Calcium 80 MG Tablet PO (22:04)
[2022-06-03 23:11] LABS: Bedside Glucose 175 mg/dL (74-106)
[2022-06-04 03:39] VITALS: BP 164/73; PULSE 65; RESP 18; TEMP 36.3; O2SAT 98
[2022-06-04 06:06] LABS: Absolute Lymphocyte Count 5.12 X10^3/uL (0.83-4.51); Absolute Neutrophil Count 5.5 X10^3/uL (2.0-7.7); Basophil# 0.11 X10^3/uL; Basophil% 0.8 % (0-1); Eosinophil# 1.22 X10^3/uL; Eosinophils% 8.9 % (0-5); Hematocrit 41.8 % (40-54); Hemoglobin 13.9 g/dL (13.0-16.5); Lymphocyte # 5.12 X10^3/ul (0.83-4.51); Lymphocyte % 37.3 % (19-41); Mean Corp Hgb Conc 33.3 g/dL (32-36); Mean Corpuscular Hgb 31.3 pg (27.0-32.0); Mean Corpuscular Volume 94.1 fL (80-94); Mean Platelet Vol. 11.4 fl (6.2-12.0); Monocyte# 1.73 X10^3/uL; Monocyte% 12.6 % (0-10); NRBC Flagged by Analyzer 0 % (0-5); Neutrophil # 5.48 X10^3/uL (2.7-7.7); POSITIVE DIFFERENTIAL YES; Platelet Count 325 K/mm3 (150-450); RBC Distribution Width CV 13.4 % (11.6-14.6); RBC Distribution Width SD 45.9 fl (35.1-43.9); Red Blood Count 4.44 M/mm3 (4.6-6.2); White Blood Count 13.7 K/mm3 (4.4-11.0)
[2022-06-04 06:26] LABS: Differential Indicated SCAN CRITERIA MET
[2022-06-04 06:28] LABS: Prothrombin Time (Protime)PT. 12.8 SECONDS (11.7-14.9)
[2022-06-04 06:48] LABS: Anion Gap 5 (5-15); BUN 18 mg/dL (7-18); BUN/Creat Ratio 30.1 RATIO (10-20); Calcium,Total 9.1 mg/dL (8.5-10.1); Chloride 107 mmol/L (98-107); EST Glomerular Filtration Rate 146 mL/min (>60); Est Glom Filt Rate - Afr Amer 177 mL/min (>60); Estimated Creatinine Clearance 130.93 ml/min; Glucose 129 mg/dL (74-106); Sodium Level 136 mmol/L (136-145)
[2022-06-04 06:50] LABS: Differential Comment SCANNED; Platelet Estimate ADEQUATE (ADEQ); Platelet Morphology LARGE
--- NOTE | 2022-06-04 06:51 | NURSING ---
At 0630 this RN provided pt with items for a shower. Tele monitor and continuous pulse ox currently off.
[2022-06-04 06:55] LABS: Bedside Glucose 139 mg/dL (74-106)
[2022-06-04 09:41] VITALS: BP 139/67; PULSE 72; RESP 16; TEMP 36.4; O2SAT 96
[2022-06-04] MEDS: Acetaminophen 325 MG Tablet 650 MG PO (09:50)
[2022-06-04] MEDS: Empagliflozin 25 MG Tablet PO (09:51)
[2022-06-04] MEDS: amLODIPine 5 MG Tablet PO (09:51)
[2022-06-04] MEDS: Hydroxychloroquine 200 MG Tablet 400 MG PO (09:51)
[2022-06-04] MEDS: Losartan Potassium 25 MG Tablet 37.5 MG PO (09:52)
[2022-06-04] MEDS: Fenofibrate 145 MG Tablet PO (09:52)
[2022-06-04 09:53] VITALS: PULSE 72
[2022-06-04] MEDS: Metoprolol Tartrate 25 MG Tablet 12.5 MG PO (09:53)
[2022-06-04 12:00] LABS: Bedside Glucose 138 mg/dL (74-106)
[2022-06-04] MEDS: Lidocaine 2% (5ml sdv) 5 ML VIAL.MPF (13:00)
--- NOTE | 2022-06-04 13:07 | CYSPIN_PTH ---
PATIENT: UMA WILKES LOC: PCU U#:[id number] AGE/SX: 61/M ROOM: [facility] RE06/02/[address]: Dr. Krista Romero MD : 1960 BED: 1 DIS: 06/04/2022 SPEC #: [id number] RECD: 06/05/22 09:01 STATUS: NIGEL REDerrick #: [id number] CHLOE: 06/04/22 13:[address]: Krista Romero DEPT: CYTOLOGY RECD BY: Erlinda Hernandez ENTERED: 06/05/22 09:01 SP TYPE: CYSPIN FL ELSIE DR: Dr. Iftikhar Carlos MD Tissues: Cerebrospinal Fluid Procedures: Pap Stain (control) Special Stain Group II Cytospin Fluid HEADER OPERATION: Lumbar puncture PRE-OP DIAGNOSIS: Subarachnoid bleed TISSUE SUBMITTED: Cerebrospinal fluid for cytology DIAGNOSIS CYTOLOGY Cerebrospinal fluid for cytology (cytospin): Negative for malignant cells. Blood. AM:gail 06/05/2022 CYTOLOGY STUDY Slides are reviewed. CYTOLOGY GROSS Received is 4 ml of light pink hazy fluid labeled with the patient's name and and designated per the requisition as CSF. Submitted for cytology preparation. / gail 06/04/2022 TC:5 CPT: 60492
[2022-06-04 13:38] LABS: Cytology, Body Fluid / CSF SEE PATHOLOGY REPORT
[2022-06-04 14:01] LABS: Body Fluid Mononuclear WBC # 0.004 10^3/uL; Total Cell Count CSF 0.005 10^3/uL; White Count, CSF 0.004 10^3/uL (0.000-0.005)
[2022-06-04 14:14] LABS: Appearance CSF (character) CLEAR (Clear); Auto B Fluid Analyzer BKGD Ct COUNTS W/IN LIMITS (W/IN LIMITS); CSF Color COLORLESS (Colorless); Tested Tube # 3
[2022-06-04 14:22] LABS: Glucose Spinal Fluid 82 mg/dL (40-75)
[2022-06-04 14:24] VITALS: BP 130/73; PULSE 69; RESP 17; TEMP 36.6; O2SAT 95
[2022-06-04 14:34] LABS: RBC Count, Spinal Fluid 43 /mm-3 (None seen)
[2022-06-04 15:05] LABS: Body Fluid QC Type(s) BF1Q,BF2Q; Lymphocytes,CSF 82 % (40 - 80); Monocytes,CSF 14 % (15 - 45); Neutrophils,CSF 4 % (0 - 6)
[2022-06-04 17:35] LABS: Bedside Glucose 151 mg/dL (74-106)
--- NOTE | 2022-06-04 18:07 | PN.HOSP_ITS ---
Reason for Visit Reason for Visit: Diagnoses Other symptoms and signs involving the musculoskeletal system (06/02/22) Unspecified symptoms and signs involving the nervous system (06/02/22) Subjective Subjective Feeling fair today, no numbness or tingling. Objective Data Objective Data Vital Signs: Vital Signs Temp Pulse Resp BP Pulse Ox O2 Del Method 97.8 F 69 17 130/73 H 95 Room Air 06/04/22 14:24 06/04/22 14:24 06/04/22 14:24 06/04/22 14:24 06/04/22 14:24 06/04/22 14:24 Oxygen Delivery Method Room Air Weight: 91.3 kg Body Mass Index (BMI) 29.7 Intake & Output: Intake and Output for Last 24 Hours 06/02/22 06/03/22 06/04/22 23:59 23:59 23:59 Intake Total 1360 / 1360 1000 / 1000 Balance 1360 / 1360 1000 / 1000 Lab / Micro Data Result Diagrams: 06/04/22 04:54 06/04/22 04:54 Labs: Laboratory Results - last 24 hr 06/03/22 13:07: CSF Glucose 82 H, CSF Total Protein 68.0 H 06/03/22 21:57: POC Glucose 175 H 06/04/22 04:54: WBC 13.7 H, RBC 4.44 L, Hgb 13.9, Hct 41.8, MCV 94.1 H, MCH 31.3, MCHC 33.3, RDW Std Deviation 45.9 H, RDW Coeff of Linh 13.4, Plt Count 325, MPV 11.4, Immature Gran % (Auto) 0.400, Neut % (Auto) 40.0 L, Lymph % (Auto) 37.3, [place] % (Auto) 12.6 H, Eos % (Auto) 8.9 H, Baso % (Auto) 0.8, Absolute Neuts (auto) 5.5, Absolute Lymphs (auto) 5.12 H, Nucleated RBC % 0, Differential Comment SCANNED, Diff Path Review May foll, Platelet Estimate ADEQUATE, Plt Morphology Comment LARGE 06/04/22 04:54: PT 12.8, INR 1.0 06/04/22 04:54: Sodium 136, Potassium 4.0, Chloride 107, Carbon Dioxide 24.0, Anion Gap 5, BUN 18, Creatinine 0.60 L, Estim Creat Clear Calc 130.93, Est GFR (MDRD) Af Amer 177, Est GFR (MDRD) Non-Af 146, BUN/Creatinine Ratio 30.1 H, Glucose 129 H, Calcium 9.1 06/04/22 06:16: POC Glucose 139 H 06/04/22 11:40: POC Glucose 138 H 06/04/22 13:07: Fld Polynuclear WBCs # 0.000, Fld Polynuclear WBCs % 0.0, Fluid Mononuclear WBCs 0.004, Fld Mononuclear WBCs % 100.0, CSF Appearance CLEAR, CSF Color COLORLESS, CSF WBC 0.004, CSF RBC 43 H, CSF Cell Count Tube # 3, CSF Total Cell Counted 0.005, CSF Neutrophils 4, CSF Lymphocytes 82 H, CSF Monocytes 14 L, CSF Comment May follow 06/04/22 17:12: POC Glucose 151 H Radiography Diagnostic Testing: Radiology Impression Lumbar Puncture Fluoroscopy 06/03/22 13:00 IMPRESSION: Successful fluoroscopic-guided lumbar puncture. Electronically Signed: Guerrero Torres MD at 13:47 EDT , Echocardiogram 06/03/22 19:05 Interpretation Summary Normal LV size. Left ventricular systolic function is normal. The estimated ejection fraction is 60 %. Stage 1 diastolic dysfunction. Contrast injection was performed. Ordering Physician: Krista Romero Referring Physician: Iftikhar Carlos Performed By: Rosy Mcclellan RCS Physical Exam Narrative General: Alert, oriented, no apparent distress HEENT: Atraumatic, normocephalic Eyes: extraocular movements grossly intact Neck: Supple Respiratory: normal respiratory effort Cardiovascular: no edema appreciated GI: nondistended Extremities: Moving all extremities Neuro: No overt focal neurological deficits Psych: Cooperative Assessment & Plan Assessment/Plan (1) Right hand weakness: PLAN: Plan #Right hand and perioral numbness -NIH 0, symptoms resolved and now presently has headache and nonfocal exam/no other complaints -Admit to tele -CT head without acute changes -CTA head and neck -MRI -NIH q4hr -asa 324 given, 81 daily, statin 80 mg -Echo w/ bubble study -PT/OT/Speech eval -Lipid panel in the a.m. -Hold BP medications to allow for permissive hypertension for 24 hours unless SBP greater than 220 or DBP greater than 120 or until stroke is ruled out -Lovenox for DVT prophylaxis -06/03: Spoke with neurologist who queries seizures and does not think these are TIAs given his history of similar presentation several times over several years and history of petit mall seizures when he was younger. However with the aneurysm and the headache that he had on presentation she recommends an LP with a cell count of tube 1 and tube 4 to assess for red cells. If positive would indicate aneurysm had blood on admission and he needs transferred for inpatient vascular neurology and if negative can follow-up with vascular neurology outpatient as well as his neurologist Dr. Lozano. Additionally she has high suspicion for seizures, recommended against medication at this time and ordering of an EEG. If EEG is positive begin Keppra, if both EEG and LP are negative she recommends aspirin 81 mg and discharging home with prescription for Keppra 500 mg twice daily that he is not supposed to take unless he has symptoms again. If symptoms recur he is supposed to start the medication and call his neurologist for a long EEG. She also advised no driving at this time. Additional studies for cytology and flow cytometry with LP. EEG and LP ordered -06/04: EEG with mild slowing, LP with 43 RBC, glucose 82, total protein 68. Awaiting callback from neurology to discuss results and dispo to assess if there should be threshold of concern given LP and EEG that necessitate escalating care versus discharge #Type 2 diabetes mellitus -Glucose checks and sliding scale insulin #DVT ppx: SCDs Krista Romero MD Time spent in the patient's overall evaluation,decision-making process, review of diagnostic data, adjustment of management, discussion with other providers, nursing nursing and ancillary staff involved in patient's care documentation, 30 minutes Charges/Coding Visit Charges Inpatient E&M: 63224 Subs Hosp L2
--- NOTE | 2022-06-04 18:45 | PCM.DC.SUM ---
Providers Date of Admission: 06/02/22 Date of Discharge: 06/05/22 Primary Care Physician: Dr. Iftikhar Carlos MD Reason For Visit: NEURO SX, R/O TIA Diagnosis Discharge Diagnosis (1) Right hand weakness: Status: Acute Code(s): R29.898 - Other symptoms and signs involving the musculoskeletal system Plan #Right hand and perioral numbness #History of petit mall seizures #Type 2 diabetes mellitus Medications at Discharge Home Medications blood sugar diagnostic (FreeStyle Lite Strips) #100 ea 09/09/18 blood-glucose meter (FreeStyle Lite Meter kit) #1 ea 09/09/18 lancets 28 gauge (FreeStyle Lancets) #200 ea 09/09/18 epinephrine 0.3 mg/0.3 mL injection, auto-injector 0.3 mg IM DAILY PRN allergic reaction 01/25/20 hydroxychloroquine 200 mg tablet 400 mg PO DAILY 10/23/21 meloxicam 15 mg tablet 15 mg PO DAILY bone health 10/23/21 icosapent ethyl 1 gram capsule (Vascepa) 2 g PO BID #120 caps 01/29/22 amlodipine 5 mg tablet 5 mg PO DAILY #90 tabs 02/27/22 metoprolol tartrate 25 mg tablet 12.5 mg PO BID #90 tabs 02/27/22 albuterol sulfate 90 mcg/actuation aerosol inhaler (ProAir HFA) 1 - 2 puff inhalation Q6H PRN shortness of breath or wheezing #8.5 grams 03/26/22 atorvastatin 80 mg tablet (Lipitor) 80 mg PO DAILY cholesterol 06/02/22 aspirin 81 mg chewable tablet 81 mg PO BREAKFAST 30 days #30 tabs 06/04/22 glimepiride 4 mg tablet 4 mg PO QAM diabetes 06/04/22 levetiracetam 500 mg tablet (Keppra) 500 mg PO BID #30 tabs 06/04/22 losartan 25 mg tablet 37.5 mg PO DAILY blood pressure 06/04/22 metformin 1,000 mg tablet 1,000 mg PO BID diabetes 06/04/22 Hospital Course Procedures - (Lumbar puncture, MRI, CTA, echocardiogram) Summary of Care Provided Minutes Spent on Discharge: 35 Hospital Course: UMA WILKES, is a 61 M with reported history of TIAs, hypertension, type 2 diabetes mellitus, rheumatoid arthritis who presented to [facility] 06/02/2022 with numbness around his face and right hand numbness while he was at [employer] in the morning.? Upon presentation NIH was 0 and symptoms resolved but he did have a headache that was in the front of his head and been present for several hours.? Given his risk factors and history CT head obtained with no acute abnormality and hospitalist called for TIA/stroke work-up. 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 Spoke with neurologist who queries seizures and does not think these are TIAs given his history of similar presentation several times over several years and history of petit mall seizures when he was younger. However with the aneurysm and the headache that he had on presentation she recommends an LP with a cell count of tube 1 and tube 4 to assess for red cells. If positive would indicate aneurysm had blood on admission and he needs transferred for inpatient vascular neurology and if negative can follow-up with vascular neurology outpatient as well as his neurologist Dr. Lozano. Additionally she has high suspicion for seizures, recommended against medication at this time and ordering of an EEG. If EEG is positive begin Keppra, if both EEG and LP are negative she recommends aspirin 81 mg and discharging home with prescription for Keppra 500 mg twice daily that he is not supposed to take unless he has symptoms again. If symptoms recur he is supposed to start the medication and call his neurologist for a long EEG. She also advised no driving at this time. Additional studies for cytology and flow cytometry with LP. EEG and LP ordered. EEG with mild slowing, LP with 43 RBC, glucose 82, total protein 68. Called neurology to discuss results and dispo to assess if there should be threshold of concern given LP and EEG that necessitate escalating care versus discharge and they were agreeable with discharge and outpatient follow-up. On the day of discharge patient had no further complaints and no focal deficits. Discharge instructions as followed: -You were evaluated by neurology and there is concern that your symptoms may have been due to seizure activity however with no definitive evidence they advised against starting daily seizure medication.? However neurology would like for you to be discharged with a prescription for 500 mg of Keppra twice a day and advised that you take this if any symptoms recur and call your outpatient neurologist.? Keppra will be sent to [facility] retail pharmacy -It will be very important that you follow neurology as an outpatient.? Please follow-up with neurology upon discharge, please call Dr. Lozano's office upon discharge to schedule hospital follow-up appointment ( [phone]) -You will be discharged on aspirin, please take 81 mg daily -It was also advised that you follow-up with vascular neurology for the small aneurysm that was found.? You can follow-up with Dr. Ivette Nicole, contact information below, with vascular neurology upon discharge or discussed with your neurologist for referral -It is recommended that you do not drive upon discharge until cleared by your neurologist to do so SEIZURE DISCHARGE INSTRUCTIONS: - Seizures are unpredictable.? Do not do anything that might cause danger to you or other people if you have another seizure.? Do not drive, ride a bike, climb ladders, or operate dangerous equipment - Do not take a bath alone.? Take shower instead - Not some alone until your healthcare provider says that you are no longer in danger of having another seizure - Tell your close friends and relatives about your seizure.? Teach them what to do for you if it happens again - Take your medicine as prescribed, missing doses increases your risk of having repeat seizure -Follow regular sleep schedule such that you get at least 60 hours of restful sleep every night.? This is especially important when you are sick or have a cold, flu, or another type of infection - Do not drink alcoholic beverages until your doctor says it is okay.? Do not ever use recreational drugs - Do not drive until you are cleared to do so by your doctor -For future seizures if you are alone: If you feel a seizure coming on, lie down on a bed or the floor or with something soft under your head and lie on your left side, not in your back.? Also make sure you are not near any objects that may injure you during seizure.? Call 911 if you can. - For future seizures if someone is with you: Depression should help you get into a safe position and then they should call 911.? They should not try to force anything into your mouth once the seizure begins.? They should not put their fingers in your mouth. -After seizure you may be drowsy or confused.? That person should stay with you until you are fully awake.? That person should not offer you anything to eat or drink during that time.? Call 911 or go to the emergency department. -Call your healthcare provider right away if you have any of these: Another seizure, a fever of 100.4 ?F or higher, abnormal irritability, drowsiness, or confusion, head or neck pain that gets worse Physical Exam Narrative General: Alert, oriented, no apparent distress HEENT: Atraumatic, normocephalic Eyes: extraocular movements grossly intact Neck: Supple Respiratory: normal respiratory effort Cardiovascular: no edema appreciated GI: nondistended Extremities: Moving all extremities Neuro: No overt focal neurological deficits Psych: Cooperative Weight / BMI Weight Weight: 91.3 kg Body Mass Index (BMI) 29.7 ABG / Lab / Microbiology Data Result Diagrams: 06/04/22 04:54 06/04/22 04:54 Laboratory: Laboratory Results - last 24 hr 06/03/22 13:07: CSF Glucose 82 H, CSF Total Protein 68.0 H 06/03/22 21:57: POC Glucose 175 H 06/04/22 04:54: WBC 13.7 H, RBC 4.44 L, Hgb 13.9, Hct 41.8, MCV 94.1 H, MCH 31.3, MCHC 33.3, RDW Std Deviation 45.9 H, RDW Coeff of Linh 13.4, Plt Count 325, MPV 11.4, Immature Gran % (Auto) 0.400, Neut % (Auto) 40.0 L, Lymph % (Auto) 37.3, Casey % (Auto) 12.6 H, Eos % (Auto) 8.9 H, Baso % (Auto) 0.8, Absolute Neuts (auto) 5.5, Absolute Lymphs (auto) 5.12 H, Nucleated RBC % 0, Differential Comment SCANNED, Diff Path Review May foll, Platelet Estimate ADEQUATE, Plt Morphology Comment LARGE 06/04/22 04:54: PT 12.8, INR 1.0 06/04/22 04:54: Sodium 136, Potassium 4.0, Chloride 107, Carbon Dioxide 24.0, Anion Gap 5, BUN 18, Creatinine 0.60 L, Estim Creat Clear Calc 130.93, Est GFR (MDRD) Af Amer 177, Est GFR (MDRD) Non-Af 146, BUN/Creatinine Ratio 30.1 H, Glucose 129 H, Calcium 9.1 06/04/22 06:16: POC Glucose 139 H 06/04/22 11:40: POC Glucose 138 H 06/04/22 13:07: Fld Polynuclear WBCs # 0.000, Fld Polynuclear WBCs % 0.0, Fluid Mononuclear WBCs 0.004, Fld Mononuclear WBCs % 100.0, CSF Appearance CLEAR, CSF Color COLORLESS, CSF WBC 0.004, CSF RBC 43 H, CSF Cell Count Tube # 3, CSF Total Cell Counted 0.005, CSF Neutrophils 4, CSF Lymphocytes 82 H, CSF Monocytes 14 L, CSF Comment May follow 06/04/22 17:12: POC Glucose 151 H Radiography Diagnostic Testing: Radiology Impression Lumbar Puncture Fluoroscopy 06/03/22 13:00 IMPRESSION: Successful fluoroscopic-guided lumbar puncture. Electronically Signed: Guerrero Torres MD at 13:47 EDT Reading Location ID and State: [facility] / [place] , Service support , Echocardiogram 06/03/22 19:05 Interpretation Summary Normal LV size. Left ventricular systolic function is normal. The estimated ejection fraction is 60 %. Stage 1 diastolic dysfunction. Contrast injection was performed. Ordering Physician: Krista Romero Referring Physician: Iftikhar Carlos Performed By: Rosy Mcclellan RCS D/C Instructions Discharge Diet: No restrictions Meaningful Use Info Meaningful Use Diagnoses (Choose all that apply): None applicable Discharge Plan Admission Admit Date/Time: 06/02/22 18:58 Primary Reason for Your Visit: Face and arm numbness Attending Provider: Krista Romero Primary Care Provider: Iftikhar Carlos Instructions Patient Instructions: ED Seizure New Onset Unknown ... Additional Instructions / Restrictions: DISCHARGE INSTRUCTIONS PLEASE READ *Please take this with you to your next doctors appointment* -You were evaluated by neurology and there is concern that your symptoms may have been due to seizure activity however with no definitive evidence they advised against starting daily seizure medication. However neurology would like for you to be discharged with a prescription for 500 mg of Keppra twice a day and advised that you take this if any symptoms recur and call your outpatient neurologist. Keppra will be sent to [facility] retail pharmacy -It will be very important that you follow neurology as an outpatient. Please follow-up with neurology upon discharge, please call Dr. Lozano's office upon discharge to schedule hospital follow-up appointment ) -You will be discharged on aspirin, please take 81 mg daily -It was also advised that you follow-up with vascular neurology for the small aneurysm that was found. You can follow-up with Dr. Ivette Nicole, contact information below, with vascular neurology upon discharge or discussed with your neurologist for referral -It is recommended that you do not drive upon discharge until cleared by your neurologist to do so SEIZURE DISCHARGE INSTRUCTIONS: - Seizures are unpredictable. Do not do anything that might cause danger to you or other people if you have another seizure. Do not drive, ride a bike, climb ladders, or operate dangerous equipment - Do not take a bath alone. Take shower instead - Not some alone until your healthcare provider says that you are no longer in danger of having another seizure - Tell your close friends and relatives about your seizure. Teach them what to do for you if it happens again - Take your medicine as prescribed, missing doses increases your risk of having repeat seizure -Follow regular sleep schedule such that you get at least 60 hours of restful sleep every night. This is especially important when you are sick or have a cold, flu, or another type of infection - Do not drink alcoholic beverages until your doctor says it is okay. Do not ever use recreational drugs - Do not drive until you are cleared to do so by your doctor -For future seizures if you are alone: If you feel a seizure coming on, lie down on a bed or the floor or with something soft under your head and lie on your left side, not in your back. Also make sure you are not near any objects that may injure you during seizure. Call 911 if you can. - For future seizures if someone is with you: Depression should help you get into a safe position and then they should call 911. They should not try to force anything into your mouth once the seizure begins. They should not put their fingers in your mouth. -After seizure you may be drowsy or confused. That person should stay with you until you are fully awake. That person should not offer you anything to eat or drink during that time. Call 911 or go to the emergency department. -Call your healthcare provider right away if you have any of these: Another seizure, a fever of 100.4 ?F or higher, abnormal irritability, drowsiness, or confusion, head or neck pain that gets worse Discharge Orders/Prescriptions Prescriptions: New levetiracetam [Keppra] 500 mg tablet 500 mg PO BID Qty: 30 0RF aspirin 81 mg Tablet,Chewable 81 mg PO BREAKFAST 30 Days Qty: 30 0RF Continued (DME) FreeStyle Lite Strips Strip See Rx Instructions .ROUTE .MEDSUPPLY Qty: 100 3RF Rx Instructions: check blood glucose daily for type 2 DM (DME) blood-glucose meter [FreeStyle Lite Meter] Kit See Rx Instructions .ROUTE .MEDSUPPLY Qty: 1 0RF Rx Instructions: As directed, check blood glucose daily for type 2 DM (DME) lancets [FreeStyle Lancets] 28 gauge misc See Rx Instructions .ROUTE .MEDSUPPLY Qty: 200 3RF Rx Instructions: check blood glucose daily for type 2 DM hydroxychloroquine 200 mg tablet 400 mg PO DAILY meloxicam 15 mg tablet 15 mg PO DAILY albuterol sulfate [ProAir HFA] 90 mcg/actuation HFA aerosol inhaler 1 - 2 puff inhalation Q6H PRN (Reason: shortness of breath or wheezing) Qty: 8.5 1RF epinephrine 0.3 MG syringe 0.3 mg IM DAILY PRN (Reason: allergic reaction ) atorvastatin [Lipitor] 80 mg tablet 80 mg PO DAILY metformin 1,000 mg tablet 1,000 mg PO BID glimepiride 4 mg tablet 4 mg PO QAM losartan 25 mg tablet 37.5 mg PO DAILY Vascepa 1 gram capsule 2 g PO BID Qty: 120 4RF amlodipine 5 mg tablet 5 mg PO DAILY Qty: 90 3RF metoprolol tartrate 25 mg tablet 12.5 mg PO BID Qty: 90 3RF Referrals / Follow Up: Randall Nicole MD [Other] - See Referral Note (Call vascular neurology upon discharge to schedule an appointment for your 3 mm aneurysm) Iftikhar Carlos MD [Primary Care Provider] - Within 1 Week Obi Lozano MD [Non-Staff -Ordering Privileges] - See Referral Note (Please your neurologist office tomorrow to schedule hospital follow-up appointment) Disposition Disposition (needs filled in before D/C Order can be placed): Home, Self Care Charges/Coding Visit Charges Inpatient E&M: 49486 Disch Hosp >30min
[2022-06-05 09:42] LABS: Pathologist Review Reviewed
[2022-06-05 09:48] LABS: Pathologist Review Reviewed
[2022-06-05 13:30] LABS: Pathologist Review Reviewed
[2022-06-05 13:32] LABS: Pathologist Review Reviewed
== END 2022-06-04 18:44 | disposition home or self-care (01) ==
LOC: ED 17:17 → PCU 19:12
PROVIDERS: Admitting Provider Internal Medicine; Emergency Provider Student in an Organized Health Care Education/Training Program; PCP Internal Medicine; Visit Provider Internal Medicine
DX: R29.898 Other symptoms and signs involving the musculoskeletal system (principal); M06.9 Rheumatoid arthritis, unspecified; G40.A09 Absence epileptic syndrome, not intractable, without status epilepticus; E11.9 Type 2 diabetes mellitus without complications; Z87.891 Personal history of nicotine dependence; Z79.84 Long term (current) use of oral hypoglycemic drugs; Z79.899 Other long term (current) drug therapy; Z86.16 Personal history of COVID-19; I10 Essential (primary) hypertension; Z86.73 Personal history of transient ischemic attack (TIA), and cerebral infarction without residual deficits; E78.5 Hyperlipidemia, unspecified; M19.90 Unspecified osteoarthritis, unspecified site; Z79.82 Long term (current) use of aspirin; R29.700 NIHSS score 0; R20.0 Anesthesia of skin; R47.9 Unspecified speech disturbances
CPT/HCPCS: 99284; 36415; 62328; 70450; 70496; 70498; 70551; 71045; 80048; 80061; 80076; 82945; 82962; 84157; 84443; 84484; 85025; 85610; 85730; 88108; 88313; 89050; 89051; 93005; 93306; 94762; 95819; 96372; 99221; Q9967; C8929; G0378

== ENCOUNTER 2022-07-02 10:06 | Emergency (ER) | payer OTHER, SELFPAY ==
[2022-07-02] VITALS (8 sets, daily range): BP systolic 133–183; BP diastolic 60–90; PULSE 60–78; RESP 16–18; TEMP 36.6–37; O2SAT 98–100; BMI 28.4
--- NOTE | 2022-07-02 10:18 | CT_ITS ---
We are attempting to reach an attending provider to discuss findings. An addendum with communication details will be sent when the communication is complete. STUDY: STROKE PROTOCOL CT BRAIN WITHOUT CONTRAST REASON FOR EXAM: Male, 61 years old. Neuro deficit, acute, stroke suspected RADIATION DOSAGE (If Supplied By Facility): CTDIvol = ( ) mGy, DLP = ( ) mGycm TECHNIQUE: Transaxial CT imaging of the brain was performed without administration of intravenous contrast material. Individualized dose optimization techniques were used for this CT. COMPARISON: CT of the head stroke protocol dated June 02, 2022. MRI of the brain dated June 03, 2022 FINDINGS: Normal soft tissue structures. Normal calvarium. Normal size ventricles and extra-axial spaces for the patient''s age. Normal white matter tracts of the cerebral hemispheres. Normal basal ganglia and thalami. Normal brainstem. Normal cerebellum. There is no demonstrated dense artery sign in the MCA or basilar regions. No sulcal effacement or parenchymal edema is seen. There is no intracranial hemorrhage. There are no findings of an acute ischemic infarction. The bilateral maxillary sinuses are occluded with mucous material. ASPECTS Score for Acute Strokes: 10 CT/STROKE Brain/Head without Cont IMPRESSION: Negative unenhanced CT scan of the brain. Electronically Signed: Cesar Shelley MD at 10:38 EDT ,
--- NOTE | 2022-07-02 10:19 | EKG12_ITS ---
Test Reason : POSS STROKE Blood Pressure : / mmHG Vent. Rate : 063 BPM Atrial Rate : 063 BPM P-R Int : 160 ms QRS Dur : 098 ms QT Int : 448 ms P-R-T Axes : 052 002 026 degrees QTc Int : 458 ms Normal sinus rhythm Minimal voltage criteria for LVH, may be normal variant ( R in aVL ) Borderline ECG Confirmed by SHARA DE LEON, BRANDEN ([id number]), production editor SONU ANNE ([id number]) on 07/04/2022 9:11:52 AM Referred By: Confirmed By:BRANDEN OLMEDO MD
--- NOTE | 2022-07-02 10:20 | CT_ITS ---
STUDY: CTA HEAD AND NECK WITH CONTRAST REASON FOR EXAM: Male, 61 years old. Neuro deficit, acute, stroke suspected RADIATION DOSAGE (If Supplied By Facility): CTDIvol = ( 23.93 ) mGy, DLP = ( 737.20 ) mGycm TECHNIQUE: CT angiography was performed with a multi-detector CT scanner. Data acquisition was obtained from the skull base through the vertex following intravenous administration of IV 100mL [id number]-[id number]. MIP images were reconstructed from the axial data set. Post-processing of the angiographic images was performed, with multiplanar reformation and 3D reconstruction. Individualized dose optimization techniques were used for this CT. COMPARISON: CT of the brain stroke protocol dated July 02, 2022. CTA of the head dated June 02, 2022 FINDINGS: Stable 3 mm midline anterior communicating artery aneurysm see image [id number] series 2. No additional aneurysms are present. Normal bilateral petrous carotid arteries. There is calcified plaque formation of the right cavernous carotid artery, with a mild stenosis (less than 50%). Normal left cavernous carotid artery with a normal supraclinoid bifurcation. Normal right A1 segments of the anterior cerebral artery. Normal left A1 segments of the anterior cerebral artery. Normal bilateral A2 segments of the anterior cerebral arteries. Normal right M1 and M2 segments of the middle cerebral arteries, with a normal M1 bifurcation. Normal left M1 and M2 segments of the middle cerebral arteries, with a normal M1 bifurcation. Normal right posterior communicating artery (PCOM). Normal left posterior communicating artery (PCOM). Normal bilateral vertebral arteries. Normal basilar artery with a normal basilar bifurcation. The visualized bilateral superior cerebellar (SCA) arteries are normal. Normal bilateral P1, P2 and visualized P3 segments of the posterior cerebral arteries. There is no demonstrated abnormality of the visualized brain. AORTIC ARCH: There is atherosclerotic calcific plaque formation of the aortic arch and great vessels arising from the aortic arch, without a hemodynamically significant stenosis. There is a normal origin of the brachiocephalic, left common carotid, and left subclavian arteries. Normal origins of the brachiocephalic, left common carotid, and left subclavian arteries. RIGHT CAROTID ARTERIES: Normal right common carotid artery (CCA). There is mild atherosclerotic plaque formation with minimal narrowing of the right carotid bulb. Normal origin of the right internal carotid (ICA) artery without a hemodynamically significant stenosis. Normal visualized cervical portion of the right internal carotid artery. There is mild atherosclerotic plaque formation of the origin of the right external carotid artery with less than 50% cross sectional diameter stenosis. LEFT CAROTID ARTERIES: Normal left common carotid artery (CCA). There is mild atherosclerotic plaque formation with minimal narrowing of the left carotid bulb. There is moderate atherosclerotic plaque formation of the origin of the left internal carotid artery with an estimated stenosis of 50-69% stenosis. Normal visualized cervical portion of the left internal carotid artery. There is mild atherosclerotic plaque formation of the origin of the left external carotid artery with less than 50% cross sectional diameter stenosis. VERTEBRAL ARTERIES: Normal bilateral vertebral arteries. CT/STROKE CTA Head AND Neck W/Con IMPRESSION: 1. Stable 3 mm midline anterior communicating artery aneurysm see image [id number] series 2. No additional aneurysms are present. 2. No demonstrated arterial occlusion or intraluminal thrombus of the major intracranial arteries. 3. There is moderate atherosclerotic plaque formation of the origin of the left internal carotid artery with an estimated stenosis of 50-69% stenosis. N.B. : The above Results were Read Back by Cesar Shelley MD to Tutu Jones MD, and understanding confirmed on 07/02/2022 10:48:13 (ET). Electronically Signed: Cesar Shelley MD at 11:01 EDT ,
--- NOTE | 2022-07-02 10:24 | EDS_ITS ---
HPI History of Present Illness Chief Complaint: Neuro S/Sx Detail of Chief Complaint: Slurred speech Informant: patient Narrative Narrative: Patient presents the emergency department with complaint of having a hard time with saying certain words and slurring his words. Symptoms started about 45 minutes ago. Complaint of feeling somewhat lightheaded and he woke up this morning had a slight headache. Both legs feel a little bit weak. Patient states that he had an episode last week where he had some right-sided hand weakness and some numbness and tingling to his face and was admitted for stroke work-up. On CTA he was noted to have a 3 mm anterior communicating artery aneurysm. He is currently not anticoagulated. Patient was told he might be having seizures possibly. Patient denies any falls or head injuries. [facility] Medical History Allergies Back pain Cough COVID-19 Essential (primary) hypertension Groin abscess History of blood transfusion History of seizures as a child History of TIA (transient ischemic attack) Hyperlipidemia Lipoma of forehead Mass of face Nonrheumatic mitral (valve) insufficiency Osteoarthritis Pneumonia Trevor Barrett syndrome (geniculate herpes zoster) Rheumatoid arthritis Rheumatoid arthritis Right trigeminal neuralgia Screening PSA (prostate specific antigen) Stroke Type II diabetes mellitus Home Medications blood sugar diagnostic (FreeStyle Lite Strips) #100 ea 09/09/18 [Rx Last Taken Unknown] blood-glucose meter (FreeStyle Lite Meter kit) #1 ea 09/09/18 [Rx Last Taken Unknown] lancets 28 gauge (FreeStyle Lancets) #200 ea 09/09/18 [Rx Last Taken Unknown] hydroxychloroquine 200 mg tablet 400 mg PO DAILY 10/23/21 [History Last Taken Unknown] aspirin 81 mg chewable tablet 81 mg PO BREAKFAST 30 days #30 tabs 06/04/22 [Rx Last Taken Unknown] levetiracetam 500 mg tablet (Keppra) 500 mg PO BID #30 tabs 06/04/22 [Rx Last Taken Unknown] amlodipine 5 mg tablet 5 mg PO DAILY #90 tabs 06/12/22 [Rx Last Taken Unknown] atorvastatin 80 mg tablet (Lipitor) 80 mg PO DAILY cholesterol #90 tabs 06/12/22 [Rx Last Taken Unknown] dapagliflozin 10 mg tablet (Farxiga) 10 mg PO QAM #90 tabs 06/12/22 [Rx Last Taken Unknown] glimepiride 4 mg tablet 4 mg PO QAM diabetes #90 tabs 06/12/22 [Rx Last Taken Unknown] icosapent ethyl 1 gram capsule (Vascepa) 2 g PO BID 3 months #360 caps 06/12/22 [Rx Last Taken Unknown] losartan 25 mg tablet 37.5 mg PO DAILY blood pressure 3 months #135 tabs 06/12/22 [Rx Last Taken Unknown] metformin 1,000 mg tablet 1,000 mg PO BID diabetes 3 months #180 tabs 06/12/22 [Rx Last Taken Unknown] metoprolol tartrate 25 mg tablet 12.5 mg PO BID #90 tabs 06/12/22 [Rx Last Taken Unknown] clopidogrel 75 mg tablet (Plavix) 75 mg PO DAILY #21 tabs 07/02/22 [Rx Last Taken Unknown] Allergy/AdvReac Type Severity Reaction Status Date / Time pneumococcal vaccine Allergy Intermediate Rash & Verified 07/02/22 10:07 [From Pneumovax ] Swelling james seed Allergy Rash Verified 07/02/22 10:07 Family History Sister Diabetes Hypertension High cholesterol blood clots Cardiovascular disease Brother Myocardial infarction High cholesterol Heart disease TIA (transient ischemic attack) Cardiovascular disease Mother Myocardial infarction Hypertension Arthritis History of blood transfusion Heart disease Kidney disease Cardiovascular disease Father High cholesterol CVA (cerebral vascular accident) blood clots Cardiovascular disease Grandmother CVA (cerebral vascular accident) Surgical History History of appendectomy History of excision of lesion History of lymphoid or hematologic neoplasm History of splenectomy History of tonsillectomy Social History housing: house current occupational status: employed 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 @ [employer] Smoking Status: Never smoker Tobacco: How many years used: 18 Electronic Cigarette Use: not used how long ago did patient quit smoking: quit 1994 second hand exposure: Yes (Smoked in the home ) alcohol intake: former year quit: 1994 substance use type: does not use what type of physical activity do you participate in: walking frequency: daily mellisa/gnosticism: Zoroastrianism seatbelt use: always additional social history: does take aspirin does take ibuprofen ROS ROS ED Review of Systems ROS Unobtainable: other Constitutional Constitutional ED: Reports lethargy; Denies chills, fever(s), sweats or weight loss Eyes Eyes: Denies blurry vision, change in vision or diplopia ENT ENT ED: Denies rhinorrhea or sore throat Cardiovascular Cardiovascular: Reports chest pain and racing heartbeat; Denies orthopnea Respiratory/Chest Respiratory/Chest: Denies cough, dyspnea, dyspnea on exertion, orthopnea or sputum Gastrointestinal Gastrointestinal: Denies abdominal pain, diarrhea, nausea or vomiting Genitourinary Genitourinary ED: Denies dysuria, hematuria or urinary frequency Musculoskeletal Musculoskeletal: Denies arthralgias, back pain, myalgias or neck pain Integumentary Denies abscess, Abrasions or rash Neurologic Neurologic: Reports headache(s) and other Details: Slurred speech ; Denies weakness Psychiatric Psychiatric: Denies anxiety, depression or suicidal thoughts Endocrine Endocrinology: Denies polydipsia, polyphagia or polyuria Hematologic/Lymphatic Hematologic/Lymphatic: Denies easy bleeding, easy bruising or lymphadenopathy Allergic/Immunologic Allergic/Immunologic ED: Denies mouth swelling, tongue swelling or urticaria EXAM Physical Exam Const Vital Signs: 07/02/22 10:08 07/02/22 10:10 07/02/22 10:19 Temperature 97.8 F Temperature Source Temporal Pulse Rate 60 60 Respiratory Rate 18 18 Blood Pressure 163/69 H 163/69 H Blood Pressure Mean 100 100 Pulse Ox 100 100 Oxygen Delivery Method Room Air Room Air Room Air 07/02/22 10:19 07/02/22 10:30 07/02/22 10:40 Temperature 98 F Temperature Source Temporal Pulse Rate 61 71 63 Respiratory Rate 18 16 16 Blood Pressure 160/68 H 183/90 H 171/80 H Blood Pressure Mean 98 121 110 Pulse Ox 100 100 100 Oxygen Delivery Method Room Air Room Air Room Air 07/02/22 10:49 Temperature Temperature Source Pulse Rate 69 Respiratory Rate 18 Blood Pressure 181/90 H Blood Pressure Mean 120 Pulse Ox 100 Oxygen Delivery Method Room Air Positive well nourished and well developed General Appearance ED: well developed and NAD HEENT Reports TM's clear and moist mucous membranes normocephalic and atraumatic; Negative for trauma or tenderness Tympanic Membrane ED: Yes TM's clear Eyes PERRL and EOMs intact bilaterally General Eye ED: Negative for pale conjunctiva or scleral icterus Neck no lymphadenopathy, supple and no JVD General: Negative for tenderness Chest Wall inspection of chest normal and palpation of chest normal Chest: Negative for tenderness Resp normal respiratory effort and clear to auscultation bilaterally Effort and Inspection: Negative for respiratory distress or pain with movement Auscultation: Negative for rhonchi, wheezes or diminished lung sounds Cardio regular rate, regular rhythm, S1 normal heart sound, S2 normal heart sound and no murmurs Peripheral Pulses: pulses 2+ throughout GI normal to inspection, nondistended, normoactive bowel sounds, soft to palpation, non-tender, non-distended and no masses Back/Spine no CVA tenderness and no thoracic nor lumbar tenderness Extremity normal to inspection General Extremety ED: Negative for edema General Extremity: Negative for edema Neuro oriented x3, CN's II-XII intact bilaterally, no sensory deficits noted and gait normal Neuro Narrative: Patient with occasional slight dysarthria and given a NIH stroke scale of 1. No focal deficits noted. Sensorium / Orientation: awake, alert, oriented to person, oriented to place and oriented to time Motor Exam: strength 5/5 throughout and strength abnormal Psych mental status grossly normal Skin no rashes or lesions noted and no wounds MDM MDM MDM Narrative Medical decision making narrative: Patient presents with some slurred speech that started about 45 minutes ago. Stroke team was called. I was subsequently able to go back and evaluate his last admission and work-up. On CTA he was noted to have a 3 mm anterior communicating artery aneurysm. Patient had an LP. Patient was not believed to have a leaking aneurysm. He is to follow-up with neurology for EEG and rule out seizure. Patient was evaluated by stroke neurologist. His symptoms have completely resolved and he has an NIH stroke scale of [address] was negative for intracranial hemorrhage and his CTA of the head and neck did show the anterior communicating artery aneurysm 3 mm otherwise no acute process. It was felt by stroke neurologist that if his work-up is negative in the ED and he recently had TIA work-up including MRI that he could be discharged to home to follow-up with neurology. CBC with differential obtained showed an elevated white count of 15.2 which is chronically elevated. Hemoglobin was 14 and hematocrit was 44. Platelet count was 395. PT/INR and PTT were normal. Chemistries unremarkable. Troponin normal. I discussed case with patient's neurologist Dr. Faust who recommended adding Plavix to his regimen 75 mg daily. Patient will follow-up with his office. Also was made aware that patient had a follow-up visit with neurosurgery and he is scheduled to have cerebral angiography on July 22. Currently his symptoms have completely resolved. Patient will be discharged to home in stable condition. He is advised to return if further signs of stroke or condition should worsen anyway. Lab Data Attestation: I reviewed the patient's lab results. Labs: Laboratory Results - last 24 hr 07/02/22 07/02/22 07/02/22 10:23 10: 10: WBC 15.2 H RBC 4.74 Hgb 14.4 Hct 43.8 MCV 92.4 MCH 30.4 MCHC 32.9 RDW Std Deviation 44.9 H RDW Coeff of Linh 13.2 Plt Count 395 MPV 11.0 Immature Gran % (Auto) 0.300 Neut % (Auto) 34.3 L Lymph % (Auto) 47.8 H Sutter % (Auto) 9.6 Eos % (Auto) 7.1 H Baso % (Auto) 0.9 Absolute Neuts (auto) 5.2 Absolute Lymphs (auto) 7.24 H Nucleated RBC % 0 Differential Comment SCANNED Reactive Lymphocytes 1+ PT 12.4 INR 1.0 APTT 34.7 Sodium 136 Potassium 3.9 Chloride 104 Carbon Dioxide 26.0 Anion Gap 6 BUN 12 Creatinine 0.76 Estim Creat Clear Calc 110.09 Est GFR (MDRD) Af Amer 135 Est GFR (MDRD) Non-Af 112 BUN/Creatinine Ratio 15.9 Glucose 141 H Calcium 9.5 Troponin I High Sens 9 Radiography Diagnostic Testing: Clinical Impression(s) from Imaging Studies Brain CT 07/02/22 10:18 IMPRESSION: Negative unenhanced CT scan of the brain. Electronically Signed: Cesar Shelley MD at 10:38 EDT , ADDENDUM: 07/02/22 105 IMPRESSION: Negative unenhanced CT scan of the brain. N.B. : The above Results were Read Back by Cesar Shelley MD to Tutu Jones MD, and understanding confirmed on 07/02/2022 10:53:01 (ET). Electronically Signed: Cesar Shelley MD at 10:38 EDT , Head/Neck CTA 07/02/22 10:20 IMPRESSION: 1. Stable 3 mm midline anterior communicating artery aneurysm see image [id number] series 2. No additional aneurysms are present. 2. No demonstrated arterial occlusion or intraluminal thrombus of the major intracranial arteries. 3. There is moderate atherosclerotic plaque formation of the origin of the left internal carotid artery with an estimated stenosis of 50-69% stenosis. N.B. : The above Results were Read Back by Cesar Shelley MD to Tutu Jones MD, and understanding confirmed on 07/02/2022 10:48:13 (ET). Electronically Signed: Cesar Shelley MD at 11:01 EDT , ADDENDUM: 07/02/22 1108 IMPRESSION: 1. Stable 3 mm midline anterior communicating artery aneurysm see image [id number] series 2. No additional aneurysms are present. 2. No demonstrated arterial occlusion or intraluminal thrombus of the major intracranial arteries. 3. There is moderate atherosclerotic plaque formation of the origin of the left internal carotid artery with an estimated stenosis of 50-69% stenosis. N.B. : The above Results were Read Back by Cesar Shelley MD to Tutu Jones MD, and understanding confirmed on 07/02/2022 10:48:13 (ET). Electronically Signed: Cesar Shelley MD at 11:01 EDT , 1 view chest x-ray obtained interpreted by myself as no evidence of infiltrate or pneumothorax or acute disease process. Official report from radiology pending. EKG Initial EKG: Attestation: I personally reviewed and interpreted this EKG as follows: Comments: Sinus rhythm with a rate of 63 bpm with no acute ST segment changes Discharge Plan Triage Chief Complaint: Neuro S/Sx ED Provider: Tutu Jones Dx/Rx/DC Orders Clinical Impression: Brain TIA Instructions: ED TIA: Transient Ischemic Attack Prescriptions: New clopidogrel [Plavix] 75 mg tablet 75 mg PO DAILY Qty: 21 0RF No Action (DME) FreeStyle Lite Strips Strip See Rx Instructions .ROUTE .MEDSUPPLY Qty: 100 3RF Rx Instructions: check blood glucose daily for type 2 DM (DME) blood-glucose meter [FreeStyle Lite Meter] Kit See Rx Instructions .ROUTE .MEDSUPPLY Qty: 1 0RF Rx Instructions: As directed, check blood glucose daily for type 2 DM (DME) lancets [FreeStyle Lancets] 28 gauge misc See Rx Instructions .ROUTE .MEDSUPPLY Qty: 200 3RF Rx Instructions: check blood glucose daily for type 2 DM hydroxychloroquine 200 mg tablet 400 mg PO DAILY amlodipine 5 mg tablet 5 mg PO DAILY Qty: 90 3RF atorvastatin [Lipitor] 80 mg tablet 80 mg PO DAILY Qty: 90 3RF Farxiga 10 mg tablet 10 mg PO QAM Qty: 90 3RF glimepiride 4 mg tablet 4 mg PO QAM Qty: 90 3RF Vascepa 1 gram capsule 2 g PO BID 90 Days Qty: 360 4RF losartan 25 mg tablet 37.5 mg PO DAILY 90 Days Qty: 135 3RF metformin 1,000 mg tablet 1,000 mg PO BID 90 Days Qty: 180 3RF metoprolol tartrate 25 mg tablet 12.5 mg PO BID Qty: 90 3RF levetiracetam [Keppra] 500 mg tablet 500 mg PO BID Qty: 30 0RF aspirin 81 mg Tablet,Chewable 81 mg PO BREAKFAST 30 Days Qty: 30 0RF Primary Care Provider: Iftikhar Carlos Referrals: Iftikhar Carlos MD [Primary Care Provider] - Obi Lozano MD [Non-Staff -Ordering Privileges] - 1 Week Disposition Disposition: Home, Self Care
--- NOTE | 2022-07-02 10:30 | ED.RN ---
[facility] UNABLE TO BEAM IN AT PRESENT TIME. WILL CALL SOON PHYSICIAN IS AVAILABLE
[2022-07-02] MEDS: 0.9% Normal Saline 1,000 ML 100 ML IV (10:39)
[2022-07-02 10:40] LABS: Absolute Lymphocyte Count 7.24 X10^3/uL (0.83-4.51); Absolute Neutrophil Count 5.2 X10^3/uL (2.0-7.7); Basophil# 0.13 X10^3/uL; Basophil% 0.9 % (0-1); Eosinophil# 1.07 X10^3/uL; Eosinophils% 7.1 % (0-5); Hematocrit 43.8 % (40-54); Hemoglobin 14.4 g/dL (13.0-16.5); Lymphocyte # 7.24 X10^3/ul (0.83-4.51); Lymphocyte % 47.8 % (19-41); Mean Corp Hgb Conc 32.9 g/dL (32-36); Mean Corpuscular Hgb 30.4 pg (27.0-32.0); Mean Corpuscular Volume 92.4 fL (80-94); Monocyte# 1.46 X10^3/uL; Monocyte% 9.6 % (0-10); NRBC Flagged by Analyzer 0 % (0-5); Neutrophil # 5.21 X10^3/uL (2.7-7.7); Neutrophil % 34.3 % (47-70); POSITIVE DIFFERENTIAL YES; Platelet Count 395 K/mm3 (150-450); RBC Distribution Width CV 13.2 % (11.6-14.6); RBC Distribution Width SD 44.9 fl (35.1-43.9); Red Blood Count 4.74 M/mm3 (4.6-6.2); White Blood Count 15.2 K/mm3 (4.4-11.0)
[2022-07-02 10:42] LABS: Differential Indicated SCAN CRITERIA MET
[2022-07-02 10:44] LABS: Prothrombin Time (Protime)PT. 12.4 SECONDS (11.7-14.9)
[2022-07-02 10:45] LABS: Partial Thromboplast Time 34.7 Seconds (24.1-36.2)
[2022-07-02 10:55] LABS: Differential Comment SCANNED; Reactive Lymphocyte 1+
[2022-07-02 10:57] LABS: Anion Gap 6 (5-15); BUN 12 mg/dL (7-18); BUN/Creat Ratio 15.9 RATIO (10-20); Calcium,Total 9.5 mg/dL (8.5-10.1); Chloride 104 mmol/L (98-107); Creatinine, Serum 0.76 mg/dL (0.70-1.30); EST Glomerular Filtration Rate 112 mL/min (>60); Est Glom Filt Rate - Afr Amer 135 mL/min (>60); Estimated Creatinine Clearance 110.09 ml/min; Glucose 141 mg/dL (74-106); Potassium 3.9 mmol/L (3.5-5.1); Sodium Level 136 mmol/L (136-145); Troponin-I HS 9 pg/mL (3.0-78.0)
--- NOTE | 2022-07-02 11:15 | RAD_ITS ---
STUDY: X-RAY CHEST REASON FOR EXAM: Male, 61 years old. Neuro deficit, acute, stroke suspected RECENTLY FOUND OUT HE HAD A BRAIN ANEURYSM. STATES THAT ABOUT A HALF HR AGO. GOT DIZZY/LIGHTHEADED. AND FEELS LIKE HIS WORDS DID NOT COME RIGHT A FEW TIMES TECHNIQUE: Single AP portable view of the chest. COMPARISON: Chest x-ray dated June 02, 2022 FINDINGS: The lungs are clear and expanded. There is no demonstrated pleural abnormality. Normal size heart. Normal mediastinum and jamey. Normal visualized pulmonary arteries. There is atherosclerotic calcification of the aortic arch with tortuosity. Normal visualized thoracic spine. Normal visualized ribs, clavicles, and shoulders. There is no demonstrated abnormality of the visualized soft tissue structures of the upper abdomen. Surgical clips are present in the left chest region. RAD/Chest 1 View IMPRESSION: No acute process Electronically Signed: Cesar Shelley MD at 11:39 EDT ,
[2022-07-02] MEDS: Clopidogrel Bisulfate 75 MG Tablet PO (11:45)
[2022-07-02 12:55] LABS: Bedside Glucose 141 mg/dL (74-106)
== END 2022-07-02 11:46 | disposition home or self-care (01) ==
PROVIDERS: Emergency Provider Emergency Medicine; PCP Internal Medicine; Visit Provider Emergency Medicine
DX: G45.9 Transient cerebral ischemic attack, unspecified (principal); M06.9 Rheumatoid arthritis, unspecified; I72.8 Aneurysm of other specified arteries; G40.909 Epilepsy, unspecified, not intractable, without status epilepticus; Z87.891 Personal history of nicotine dependence; Z79.899 Other long term (current) drug therapy; Z79.82 Long term (current) use of aspirin; I10 Essential (primary) hypertension; E78.5 Hyperlipidemia, unspecified; M19.90 Unspecified osteoarthritis, unspecified site; Z79.84 Long term (current) use of oral hypoglycemic drugs; Z86.73 Personal history of transient ischemic attack (TIA), and cerebral infarction without residual deficits; Z79.02 Long term (current) use of antithrombotics/antiplatelets
CPT/HCPCS: 70450; 70496; 70498; 71045; 80048; 82962; 84484; 85025; 85610; 85730; 93005; 96360; 99285; J7030; Q9967; A4216

== ENCOUNTER → 2022-07-18 | Outpatient (CLI) | payer OTHER, SELFPAY ==
--- NOTE | 2022-07-18 09:51 | CDU_ITS ---
Reason For Study: TIA Rt. Velocities/BP Lt. Velocities/BP Prox CCA 70.2/18.2 cm/sec. Prox CCA 73.3/15.7 cm/sec. Mid CCA 68.3/21.1 cm/sec. Mid CCA 62.9/12.8 cm/sec. Dist CCA 65.8/19.5 cm/sec. Dist CCA 81.8/22.3 cm/sec. Prox ICA 97.9/26.7 cm/sec. Prox ICA 78.0/22.3 cm/sec. Mid ICA 101.6/37.6 cm/sec. Mid ICA 73.2/21.9 cm/sec. Dist ICA 99.7/30.3 cm/sec. Dist ICA 80.9/27.0 cm/sec. Rt. ICA/CCA = 1.5. Lt. ICA/CCA = 1.3. Prox ECA 149.9/13.8 cm/sec. Prox ECA 130.8/21.2 cm/sec. Rt. Vert. 52.5/14.7 cm/sec. Lt. Vert. 47.6/9.2 cm/sec. Right Extracranial There is homogeneous, smooth atherosclerotic plaque noted in the right common carotid artery. There is heterogeneous, irregular atherosclerotic plaque noted in the right internal carotid artery. There is homogeneous, smooth atherosclerotic plaque noted in the right external carotid artery. Antegrade flow is noted in the right vertebral artery. Left Extracranial There is homogeneous, smooth atherosclerotic plaque noted in the left common carotid artery. There is heterogeneous, irregular atherosclerotic plaque noted in the left internal carotid artery. There is intimal thickening but no significant atherosclerotic plaque noted in the left external carotid artery. Antegrade flow is noted in the left vertebral artery. High resistant waveforms noted. Procedure Carotid Duplex 64226. This is a Carotid Duplex examination using B-mode, color flow and specral Doppler. The exam was diagnostic. Exam performed in department. VL/Carotid Duplex Ultrasound Interpretation Summary Minimal irregular plaque at the proximal right internal carotid artery with les s than 50% stenosis Less than 50% stenosis right external carotid artery Minimal irregular plaque at the proximal left internal carotid artery with less than 50% stenosis Less than 50% stenosis left external carotid artery Patent and antegrade vertebral arteries bilaterally No significant change from the previous examination of June 08, 2020 Ordering Physician: Obi Lozano Referring Physician: Obi Lozano Performed By: Juan Miguel Spain RVT
== END | disposition home or self-care (01) ==
LOC: CVS 09:50
PROVIDERS: PCP Internal Medicine; Referring Provider Psychiatry & Neurology Neurology; Visit Provider Psychiatry & Neurology Neurology
DX: I65.23 Occlusion and stenosis of bilateral carotid arteries (principal)
CPT/HCPCS: 93880

== ENCOUNTER → 2022-09-16 | Outpatient (CLI) | payer OTHER, SELFPAY ==
[2022-09-16 17:06] LABS: Absolute Lymphocyte Count 7.69 X10^3/uL (0.83-4.51); Absolute Neutrophil Count 4.6 X10^3/uL (2.0-7.7); Basophil# 0.14 X10^3/uL; Basophil% 0.9 % (0-1); Eosinophil# 0.96 X10^3/uL; Eosinophils% 6.4 % (0-5); Hematocrit 42.1 % (40-54); Hemoglobin 13.9 g/dL (13.0-16.5); Lymphocyte # 7.69 X10^3/ul (0.83-4.51); Lymphocyte % 51.2 % (19-41); Mean Corpuscular Hgb 30.8 pg (27.0-32.0); Mean Corpuscular Volume 93.3 fL (80-94); Mean Platelet Vol. 11.3 fl (6.2-12.0); Monocyte# 1.56 X10^3/uL; Monocyte% 10.4 % (0-10); NRBC Flagged by Analyzer 0 % (0-5); Neutrophil # 4.64 X10^3/uL (2.7-7.7); POSITIVE DIFFERENTIAL YES; POSITIVE MORPHOLOGY YES; Platelet Count 411 K/mm3 (150-450); RBC Distribution Width CV 13.1 % (11.6-14.6); RBC Distribution Width SD 44.3 fl (35.1-43.9); Red Blood Count 4.51 M/mm3 (4.6-6.2)
[2022-09-16 17:23] LABS: Differential Indicated SCAN CRITERIA MET
[2022-09-16 17:48] LABS: Anisocytosis RARE; Atypical Lymphocyte 1+ %; Differential Comment SEE COMMENTS; Platelet Estimate SLT INC (ADEQ); Red Cell Morphology N CHROM NORMAL (NORM C&C)
[2022-09-16 17:49] LABS: Macrocytosis RARE
[2022-09-18 10:17] LABS: Pathologist Review Reviewed
[2022-09-18 15:08] LABS: Anti-Cardiolipin Ab, IgA, Qn < 9 APL U/mL (0-11); Anti-Cardiolipin Ab, IgG, Qn < 9 GPL U/mL (0-14); Anti-Cardiolipin Ab, IgM, Qn 10 MPL U/mL (0-12)
== END | disposition home or self-care (01) ==
LOC: BIMLAB 15:42
PROVIDERS: Psychiatry & Neurology Neurology; PCP Internal Medicine; Referring Provider Internal Medicine; Visit Provider Internal Medicine
DX: K92.1 Melena (principal)
CPT/HCPCS: 36415; 85025; 86147

== ENCOUNTER → 2022-10-15 | Outpatient (CLI) | payer OTHER, SELFPAY | END | disposition home or self-care (01) | LOC: LABSPEC 12:09 | PROVIDERS: PCP Internal Medicine; Visit Provider Internal Medicine | DX: K92.1 Melena (principal) | CPT/HCPCS: 82274 ==

== ENCOUNTER 2022-10-23 10:44 | Emergency (ER) | payer OTHER, SELFPAY ==
[2022-10-23 10:45] VITALS: BP 175/72; PULSE 65; RESP 14; TEMP 36.6; O2SAT 98
--- NOTE | 2022-10-23 11:11 | EDS_ITS ---
HPI History of Present Illness Chief Complaint: Back [facility] Medical History (Updated 10/23/22 @ 11:[address] Bertin Molina, DO) Allergies Back pain Blood in stool Cough COVID-19 Essential (primary) hypertension Groin abscess History of blood transfusion History of seizures as a child History of TIA (transient ischemic attack) Hyperlipidemia Leukocytosis Lipoma of forehead Mass of face Nonrheumatic mitral (valve) insufficiency Osteoarthritis Pneumonia Trevor Barrett syndrome (geniculate herpes zoster) Rheumatoid arthritis Rheumatoid arthritis Right trigeminal neuralgia Screening PSA (prostate specific antigen) Stroke Type II diabetes mellitus Home Medications blood sugar diagnostic (FreeStyle Lite Strips) #100 ea 09/09/18 [Rx Last Taken Unknown] blood-glucose meter (FreeStyle Lite Meter kit) #1 ea 09/09/18 [Rx Last Taken Unknown] lancets 28 gauge (FreeStyle Lancets) #200 ea 09/09/18 [Rx Last Taken Unknown] hydroxychloroquine 200 mg tablet 400 mg PO DAILY 10/23/21 [History Last Taken Unknown] aspirin 81 mg chewable tablet 81 mg PO BREAKFAST 30 days #30 tabs 06/04/22 [Rx Last Taken Unknown] amlodipine 5 mg tablet 5 mg PO DAILY #90 tabs 06/12/22 [Rx Last Taken Unknown] atorvastatin 80 mg tablet (Lipitor) 80 mg PO DAILY cholesterol #90 tabs 06/12/22 [Rx Last Taken Unknown] dapagliflozin propanediol 10 mg tablet (Farxiga) 10 mg PO QAM #90 tabs 06/12/22 [Rx Last Taken Unknown] losartan 25 mg tablet 37.5 mg (1.5 x 25 mg) PO DAILY blood pressure 3 months #135 tabs 06/12/22 [Rx Last Taken Unknown] metformin 1,000 mg tablet 1,000 mg PO BID diabetes 3 months #180 tabs 06/12/22 [Rx Last Taken Unknown] metoprolol tartrate 25 mg tablet 12.5 mg (1/2 x 25 mg) PO BID #90 tabs 06/12/22 [Rx Last Taken Unknown] blood pressure monitor (Blood Pressure Kit) #1 ea 07/02/22 [Rx Last Taken Unknown] clopidogrel 75 mg tablet (Plavix) 75 mg PO DAILY #30 tabs 07/09/22 [Rx Last Taken Unknown] fenofibrate 54 mg tablet 54 mg PO DAILY #90 tabs 08/20/22 [Rx Last Taken Unknown] glimepiride 4 mg tablet 6 mg (1.5 x 4 mg) PO QAM diabetes #90 tabs 09/16/22 [Rx Last Taken Unknown] oxycodone 5 mg capsule 5 mg PO Q6H PRN pain 4 days #20 caps 10/23/22 [Rx Last Taken Unknown] prednisone 20 mg tablet 40 mg (2 x 20 mg) PO DAILY #5 tabs 10/23/22 [Rx Last Taken Unknown] Allergy/AdvReac Type Severity Reaction Status Date / Time pneumococcal vaccine Allergy Intermediate Rash & Verified 10/23/22 10:45 [From Pneumovax ] Swelling james seed Allergy Rash Verified 10/23/22 10:45 Family History Sister Diabetes Hypertension High cholesterol blood clots Cardiovascular disease Brother Myocardial infarction High cholesterol Heart disease TIA (transient ischemic attack) Cardiovascular disease Mother Myocardial infarction Hypertension Arthritis History of blood transfusion Heart disease Kidney disease Cardiovascular disease Father High cholesterol CVA (cerebral vascular accident) blood clots Cardiovascular disease Grandmother CVA (cerebral vascular accident) Surgical History History of appendectomy History of excision of lesion History of lymphoid or hematologic neoplasm History of splenectomy History of tonsillectomy Social History housing: house current occupational status: employed 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 @ [employer] Smoking Status: Never smoker Tobacco: How many years used: 18 Electronic Cigarette Use: not used how long ago did patient quit smoking: quit 1994 second hand exposure: Yes (Smoked in the home ) alcohol intake: former year quit: 1994 substance use type: does not use what type of physical activity do you participate in: walking frequency: daily mellisa/episcopal: [employer]ist seatbelt use: always additional social history: does take aspirin does take ibuprofen EXAM Physical Exam Const Vital Signs: 10/23/22 10:45 10/23/22 13:23 Temperature 98 F Temperature Source Temporal Pulse Rate 65 66 Respiratory Rate 14 20 H Blood Pressure 175/72 H Blood Pressure Mean 106 Pulse Ox 98 97 Oxygen Delivery Method Room Air MDM MDM MDM Narrative Medical decision making narrative: HISTORY OF PRESENT ILLNESS: 62-year-old male presents with back pain. Notes he is try to get out of the shower when he developed cute onset of lower back pain that comes in waves. Den ies any flank pain. Denies any urinary symptoms. Denies any trauma falls or recent motor vehicle accidents. No history of back surgery. Does note he has diabetes. Denies any chest pain abdominal pain or vomiting. Patient denies any saddle anesthesia, urinary tension, bowel or bladder incontinence, lower extremity weakness, fever or IV drug use, no recent spinal manipulation or surgery, no recent urinary catheterization. REVIEW OF SYSTEMS: All other systems reviewed and are negative except as noted in the history of present illness. At least 10 review of systems reviewed and are negative except as noted in history of present illness. PHYSICAL EXAM: Nursing triage notes reviewed, Vital signs reviewed Constitutional: please see mdm HENT: MMM Eyes: Pupils equal round and reactive to light, Extraocular muscles intact Neck: No stridor, no JVD, full neck ROM Lungs: Clear to auscultation, No wheezing or rales. No increased work of breathing, no conversational dyspnea, no accessory muscle use, no nasal flaring. No respiratory distress noted Heart: Regular rate and rhythm, No murmurs, No rubs and No gallops, 2+ distal pulses (radial, femoral, posterior tibial) in all extremities Abdomen: Soft, there is no tenderness, rigidity, rebound or guarding, no obvious peritoneal signs, no palpable pulsatile abdominal masses, no auscultated abdominal bruit : No CVAT Extremities: No edema Back: No midline step-offs or deformities Neuro: Intact sensation L1-S1 dermatomal distributions. Intact 5/5 strength in hip flexion (T12-L3). Knee extension (L2-L4). Ankle dorsiflexion (L4-L5). Ankle plantar flexion (S1). Great toe extension (L5). 2+ patellar and Achilles DTRs. Skin: No rash or lesions noted MEDICAL DECISION MAKING: Chief Complaint: Back pain External records reviewed: No recent Loco imaging of the axial skeleton Factors affecting care: Type 2 diabetes Social determinants of health: No IV drug use History obtained from others: The patient's Consults: none ALL IMAGES (IF OBTAINED) HAVE BEEN PERSONALLY REVIEWED AND INTERPRETED BY MYSELF. MDM Narrative: Patient was hemodynamically stable, afebrile, nontoxic-appearing. No focal neurologic deficits. No midline step-offs deformities of the spine no obvious evidence of CVA tenderness, shingles. Treat the patient empirically with anti- inflammatories, steroids, narcotics. He reported only minimal improvement so I then gave him p.o. Valium with cardiopulmonary monitoring. Tolerated this well his spasms decreased he was able to ambulate out of the emergency department that significant difficulty. I considered the following differential diagnosis: Musculoskeletal back pain, space-occupying lesion of the spinal (epidural abscess, epidural hematoma), cauda equina, conus medullaris, fracture dislocation, AAA, nephrolithiasis, pyelonephritis, aortic dissection The patient presented complaining of back pain. There was no history of recent fall or trauma. There was no evidence to support genitourinary etiology. There is also no evidence to suggest vascular pathology such as AAA dissection. No fevers or other evidence to suspect infectious processes, abscess, osteomyelitis etc. The patient?s neurological exam is normal with normal motor and sensory. There is no saddle paresthesias reported and no bowel or bladder incontinence or retention. I suspect the pain is mechanical in nature. Clinical suspicion, plan of care and management was discussed with the patient. The patient was instructed to follow up with their health care provider. The patient was also instructed to return if the pain worsened, changed, or developed weakness or bowel or bladder trouble. The patient agreed with plan. I completed a structured, evidence-based clinical evaluation to screen for acute non-traumatic spinal emergencies. The patient has a normal detailed neurologic exam and red flag historical factors were negative. The evidence indicates that the patient is very low risk for an acute spinal em ergency and this is consistent with my clinical intuition. The risk of further workup is higher than the likelihood of the patient having a spinal epidural abscess or other dangerous emergency spinal condition. It is, therefore, in the patient?s best interest not to do additional emergent testing at this time. Shared Decision-Making I have discussed with the patient my clinical impression and the result of an evidence-based clinical evaluation to screen for spinal epidural abscess and other spinal emergencies, as well as the risk of further testing and hospitalization. The evidence shows that the risk for an acute spinal emergency is less than 1%. Although the risk of an acute spinal emergency has not been completely eliminated, the risks of further testing likely exceed any potential benefit, and the patient agrees with not pursuing further emergent evaluation for causes of back pain at this time. The patient and/or family, caregivers express understanding. The patient and/or family, caregivers agrees with the plan. Total critical care time today provided was at least 0 minutes. This excludes separately billable procedures. Critical care time (if documented) is secondary to the patient having high probability of clinically significant/life threatening deterioration in the patient's condition which required my urgent intervention. Bertin Molina DO Discharge Plan Triage Chief Complaint: Back ED Provider: Bertin Molina Dx/Rx/DC Orders Clinical Impression: Acute back pain, History of diabetes mellitus, type II, Musculoskeletal back pain Instructions: ED Back Spasm, No Trauma Prescriptions: New prednisone 20 mg tablet 40 mg PO DAILY Qty: 5 0RF oxycodone 5 mg capsule 5 mg PO Q6H PRN (Reason: pain) 4 Days Qty: 20 0RF No Action (DME) FreeStyle Lite Strips Strip See Rx Instructions .ROUTE .MEDSUPPLY Qty: 100 3RF Rx Instructions: check blood glucose daily for type 2 DM (DME) blood-glucose meter [FreeStyle Lite Meter] Kit See Rx Instructions .ROUTE .MEDSUPPLY Qty: 1 0RF Rx Instructions: As directed, check blood glucose daily for type 2 DM (DME) lancets [FreeStyle Lancets] 28 gauge misc See Rx Instructions .ROUTE .MEDSUPPLY Qty: 200 3RF Rx Instructions: check blood glucose daily for type 2 DM hydroxychloroquine 200 mg tablet 400 mg PO DAILY clopidogrel [Plavix] 75 mg tablet 75 mg PO DAILY Qty: 30 5RF amlodipine 5 mg tablet 5 mg PO DAILY Qty: 90 3RF atorvastatin [Lipitor] 80 mg tablet 80 mg PO DAILY Qty: 90 3RF Farxiga 10 mg tablet 10 mg PO QAM Qty: 90 3RF losartan 25 mg tablet 37.5 mg PO DAILY 90 Days Qty: 135 3RF metformin 1,000 mg tablet 1,000 mg PO BID 90 Days Qty: 180 3RF metoprolol tartrate 25 mg tablet 12.5 mg PO BID Qty: 90 3RF glimepiride 4 mg tablet 6 mg PO QAM Qty: 90 3RF aspirin 81 mg Tablet,Chewable 81 mg PO BREAKFAST 30 Days Qty: 30 0RF (DME) blood pressure monitor [Blood Pressure Kit] Kit See Rx Instructions .ROUTE .MEDSUPPLY Qty: 1 0RF Rx Instructions: Check blood pressure daily for hypertension I10 fenofibrate 54 mg tablet 54 mg PO DAILY Qty: 90 3RF Primary Care Provider: Iftikhar Carlos Referrals: Iftikhar Carlos MD [Primary Care Provider] - Activity Restrictions/Additional Instructions: Thank you for trusting us with your care today! Please take Tylenol (2 pills, 650 mg), ibuprofen (2 pills, 400 mg) every 6 hours as needed for pain and fever control. If this can trigger pain please take oxycodone as needed. Please take prednisone as prescribed. Please be aware that steroids increase Please go to a local pharmacy or drugstore obtain Salonpas lidocaine patches and apply these as directed. Please return to the emergency department if your symptoms change or worsen. Specifically if develop bowel or bladder incontinence, urinary tension, loss of sensation in your legs loss of movement in your legs. Please follow with your primary care physician for further outpatient evaluation and management. Disposition Disposition: Home, Self Care Discharge Date/Time: 10/23/22 13:25
[2022-10-23] MEDS: oxyCODONE 5 MG Tablet PO (11:38)
[2022-10-23] MEDS: predniSONE 20 MG Tablet 40 MG PO (11:38)
[2022-10-23] MEDS: Lidocaine 5% Patch 1 PATCH TOPICAL (11:39)
[2022-10-23] MEDS: diazePAM 5 MG Tablet 2.5 MG PO (12:48)
[2022-10-23 13:23] VITALS: PULSE 66; RESP 20; O2SAT 97
== END 2022-10-23 13:25 | disposition home or self-care (01) ==
LOC: ED 11:44
PROVIDERS: Emergency Provider Emergency Medicine; PCP Internal Medicine; Visit Provider Emergency Medicine
DX: M54.9 Dorsalgia, unspecified (principal); M06.9 Rheumatoid arthritis, unspecified; E11.9 Type 2 diabetes mellitus without complications; Z87.891 Personal history of nicotine dependence; I10 Essential (primary) hypertension; Z79.899 Other long term (current) drug therapy; Z79.82 Long term (current) use of aspirin; Z86.73 Personal history of transient ischemic attack (TIA), and cerebral infarction without residual deficits; E78.5 Hyperlipidemia, unspecified; Z79.84 Long term (current) use of oral hypoglycemic drugs; Z79.02 Long term (current) use of antithrombotics/antiplatelets; Z90.49 Acquired absence of other specified parts of digestive tract; M79.18 Myalgia, other site
CPT/HCPCS: 99283

== ENCOUNTER 2022-11-29 18:18 | Emergency (ER) | payer OTHER, SELFPAY ==
[2022-11-29 18:19] VITALS: BP 149/71; PULSE 102; RESP 20; TEMP 36; O2SAT 96; BMI 29.2
[2022-11-29 19:23] LABS: Absolute Lymphocyte Count 5.96 X10^3/uL (0.83-4.51); Absolute Neutrophil Count 10.8 X10^3/uL (2.0-7.7); Basophil# 0.14 X10^3/uL; Basophil% 0.7 % (0-1); Eosinophil# 0.84 X10^3/uL; Eosinophils% 4.2 % (0-5); Hematocrit 37.1 % (40-54); Hemoglobin 12.7 g/dL (13.0-16.5); Lymphocyte # 5.96 X10^3/ul (0.83-4.51); Lymphocyte % 29.6 % (19-41); Mean Corp Hgb Conc 34.2 g/dL (32-36); Mean Corpuscular Hgb 31.2 pg (27.0-32.0); Mean Corpuscular Volume 91.2 fL (80-94); Mean Platelet Vol. 10.3 fl (6.2-12.0); Monocyte# 2.36 X10^3/uL; Monocyte% 11.7 % (0-10); NRBC Flagged by Analyzer 0 % (0-5); Neutrophil # 10.78 X10^3/uL (2.7-7.7); Neutrophil % 53.5 % (47-70); POSITIVE DIFFERENTIAL YES; POSITIVE MORPHOLOGY YES; Platelet Count 505 K/mm3 (150-450); RBC Distribution Width CV 13.2 % (11.6-14.6); RBC Distribution Width SD 44.1 fl (35.1-43.9); Red Blood Count 4.07 M/mm3 (4.6-6.2); White Blood Count 20.1 K/mm3 (4.4-11.0)
[2022-11-29 19:26] LABS: Differential Indicated SCAN CRITERIA MET
[2022-11-29 19:44] LABS: Anion Gap 4 (5-15); BUN 16 mg/dL (7-18); BUN/Creat Ratio 15.7 RATIO (10-20); Calcium,Total 9.2 mg/dL (8.5-10.1); Chloride 108 mmol/L (98-107); Creatinine, Serum 1.02 mg/dL (0.70-1.30); EST Glomerular Filtration Rate 79 mL/min (>60); Est Glom Filt Rate - Afr Amer 95 mL/min (>60); Estimated Creatinine Clearance 76.05 ml/min; Glucose 142 mg/dL (74-106); Potassium 3.9 mmol/L (3.5-5.1); Sodium Level 139 mmol/L (136-145)
--- NOTE | 2022-11-29 19:49 | EX.ED.VIS.UR ---
HPI HPI - URI History of Present Illness Chief Complaint: Shortness of Breath Detail of Chief Complaint: Shortness of breath, productive cough of yellow-green sputum, rhinorrhea, w Informant: patient Onset/Context/Timing Onset: Weeks (On side of illness 3 weeks ago) Context: Sudden Onset Timing: Continuous and Waxes and wanes Quality: Upper respiratory tract infectious symptoms with wheezing and productive co Location: Upper respiratory Current Severity: Mild Maximum Severity: Severe Worsened by: Not Worsened By Swallowing, Eating Solids or Drinking Liquids Relieved by: Not Relieved By Tylenol or NSAIDs Associated Symptoms Associated Symptoms: Positive for Nasal Congestion, Shortness of Breath and Productive Cough; Negative for Headache, Sinus Pressure, Myalgias, Nausea, Vomiting, Diarrhea, Chest Pain, Nonproductive cough or Hemoptysis Narrative Narrative: Patient 62-year-old male who presents with upper respiratory symptoms started 3 weeks ago. He has gotten worse. He is wheezing. He has no history of asthma, COPD or childhood asthma. He quit smoking in 1994. He denies fever or chills. Denies night sweats. He denies headache. He denies ocular, visual or auditory symptoms. He does endorse congestion and sore throat initially. He now has a productive cough of yellow to green sputum. He does endorse dyspnea on exertion. He denies orthopnea or PND. Denies chest discomfort. Denies leg pain, swelling ration. Patient earlier this month was seen at urgent care and had a negative COVID test. Prior similar symptoms: No Recent Illness/Hospitalization: Yes [facility] ED Constitutional Constitutional ED: Denies chills, fever(s), subjective or sweats Eyes Eyes: Denies blurry vision, change in vision or diplopia ENT ENT ED: Reports sore throat; Denies ear pain or rhinorrhea Cardiovascular Cardiovascular: Denies chest pain, orthopnea, palpitations or paroxysmal nocturnal dyspnea Respiratory/Chest Respiratory/Chest: Reports cough, dyspnea, dyspnea on exertion and sputum; Denies orthopnea or paroxysmal nocturnal dyspnea Gastrointestinal Gastrointestinal: Denies abdominal pain, nausea or vomiting Genitourinary Genitourinary ED: Denies dysuria, hematuria or urinary frequency Musculoskeletal Musculoskeletal: Denies arthralgias, back pain, myalgias or neck pain Integumentary Denies rash Neurologic Neurologic: Denies headache(s), paresthesias or weakness Endocrine Endocrinology: Denies cold intolerance or heat intolerance Hematologic/Lymphatic Hematologic/Lymphatic: Denies easy bleeding or easy bruising [facility] Medical History Allergies Back pain Blood in stool Cough COVID-19 Essential (primary) hypertension Groin abscess History of blood transfusion History of seizures as a child History of TIA (transient ischemic attack) Hyperlipidemia Leukocytosis Lipoma of forehead Mass of face Nonrheumatic mitral (valve) insufficiency Osteoarthritis Pneumonia [place] Barrett syndrome (geniculate herpes zoster) Rheumatoid arthritis Rheumatoid arthritis Right trigeminal neuralgia Screening PSA (prostate specific antigen) Stroke Type II diabetes mellitus Home Medications blood sugar diagnostic (FreeStyle Lite Strips) #100 ea 09/09/18 [Rx Last Taken Unknown] blood-glucose meter (FreeStyle Lite Meter kit) #1 ea 09/09/18 [Rx Last Taken Unknown] lancets 28 gauge (FreeStyle Lancets) #200 ea 09/09/18 [Rx Last Taken Unknown] hydroxychloroquine 200 mg tablet 400 mg PO DAILY 10/23/21 [History Last Taken Unknown] aspirin 81 mg chewable tablet 81 mg PO BREAKFAST 30 days #30 tabs 06/04/22 [Rx Last Taken Unknown] amlodipine 5 mg tablet 5 mg PO DAILY #90 tabs 06/12/22 [Rx Last Taken Unknown] atorvastatin 80 mg tablet (Lipitor) 80 mg PO DAILY cholesterol #90 tabs 06/12/22 [Rx Last Taken Unknown] dapagliflozin propanediol 10 mg tablet (Farxiga) 10 mg PO QAM #90 tabs 06/12/22 [Rx Last Taken Unknown] losartan 25 mg tablet 37.5 mg (1.5 x 25 mg) PO DAILY blood pressure 3 months #135 tabs 06/12/22 [Rx Last Taken Unknown] metformin 1,000 mg tablet 1,000 mg PO BID diabetes 3 months #180 tabs 06/12/22 [Rx Last Taken Unknown] metoprolol tartrate 25 mg tablet 12.5 mg (1/2 x 25 mg) PO BID #90 tabs 06/12/22 [Rx Last Taken Unknown] blood pressure monitor (Blood Pressure Kit) #1 ea 07/02/22 [Rx Last Taken Unknown] clopidogrel 75 mg tablet (Plavix) 75 mg PO DAILY #30 tabs 07/09/22 [Rx Last Taken Unknown] fenofibrate 54 mg tablet 54 mg PO DAILY #90 tabs 08/20/22 [Rx Last Taken Unknown] glimepiride 4 mg tablet 6 mg (1.5 x 4 mg) PO QAM diabetes #90 tabs 09/16/22 [Rx Last Taken Unknown] oxycodone 5 mg capsule 5 mg PO Q6H PRN pain 4 days #20 caps 10/23/22 [Rx Last Taken Unknown] prednisone 20 mg tablet 40 mg (2 x 20 mg) PO DAILY #5 tabs 10/23/22 [Rx Last Taken Unknown] albuterol sulfate 90 mcg/actuation aerosol inhaler (Ventolin HFA) 2 puff inhalation Q4H PRN PRN Wheezing ##1 11/29/22 [Rx Last Taken Unknown] doxycycline monohydrate 100 mg capsule 100 mg PO BID #13 CAPSULES 11/29/22 [Rx Last Taken Unknown] prednisone 20 mg tablet 60 mg (3 x 20 mg) PO DAILY #12 TABLETS 11/29/22 [Rx Last Taken Unknown] Allergy/AdvReac Type Severity Reaction Status Date / Time pneumococcal vaccine Allergy Intermediate Rash & Verified 11/29/22 18:19 [From Pneumovax ] Swelling james seed Allergy Rash Verified 11/29/22 18:19 Family History Sister Diabetes Hypertension High cholesterol blood clots Cardiovascular disease Brother Myocardial infarction High cholesterol Heart disease TIA (transient ischemic attack) Cardiovascular disease Mother Myocardial infarction Hypertension Arthritis History of blood transfusion Heart disease Kidney disease Cardiovascular disease Father High cholesterol CVA (cerebral vascular accident) blood clots Cardiovascular disease Grandmother CVA (cerebral vascular accident) Surgical History History of appendectomy History of excision of lesion History of lymphoid or hematologic neoplasm History of splenectomy History of tonsillectomy Social History housing: house current occupational status: employed 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 @ [employer] Smoking Status: Never smoker Tobacco: How many years used: 18 Electronic Cigarette Use: not used how long ago did patient quit smoking: quit 1994 second hand exposure: Yes (Smoked in the home ) alcohol intake: former year quit: 1994 substance use type: does not use what type of physical activity do you participate in: walking frequency: daily mellisa/synagogue: Rastafarian seatbelt use: always additional social history: does take aspirin does take ibuprofen EXAM Physical Exam Const Vital Signs: 11/29/22 18:19 11/29/22 20:00 11/29/22 20:53 Temperature 96.8 F L Temperature Source Temporal Pulse Rate 102 H 88 Respiratory Rate 20 H 16 Respiratory Effort Respiratory Pattern Normal Blood Pressure 149/71 H Blood Pressure Mean 97 Pulse Ox 96 96 Oxygen Delivery Method Room Air Room Air 11/29/22 20:53 11/29/22 20:53 Temperature Temperature Source Pulse Rate Respiratory Rate 20 H Respiratory Effort Short of Breath Respiratory Pattern Blood Pressure Blood Pressure Mean Pulse Ox 96 Oxygen Delivery Method Room Air Positive well nourished and well developed General Appearance ED: well developed and NAD; Negative for cyanotic, diaphoretic or pallor HEENT Reports moist mucous membranes normocephalic and atraumatic Face and Sinus: Negative for sinus tenderness Throat: posterior oropharynx normal Eyes PERRL and EOMs intact bilaterally General Eye ED: Negative for pale conjunctiva or scleral icterus Neck no lymphadenopathy, supple, no meningeal signs and no JVD Resp normal respiratory effort and No clear to auscultation bilaterally Resp Narrative: Patient has egophony posteriorly right lower lobe. There is also increased vocal fremitus. Auscultation: rales right lower and left base and wheezes expiratory wheezes, scattered wheezes and throughout Cardio S1 normal heart sound, S2 normal heart sound and no murmurs Rate: tachycardic Rhythm: regular rhythm GI non-tender and non-distended Palpation: soft Back/Spine no CVA tenderness Extremity normal to inspection and full ROM General Extremety ED: Negative for cyanosis or tenderness General Extremity: Negative for cyanosis Neuro oriented x3, CN's II-XII intact bilaterally and no sensory deficits noted Sensorium / Orientation: alert Psych mental status grossly normal Skin General Skin Exam: Negative for jaundice or pallor Lesions: no lesions Rashes: no rashes MDM MDM MDM Narrative Medical decision making narrative: Nurse protocol orders were initiated. Patient's prior records were reviewed. Patient has chronic elevation of his white count. Patient's symptoms consistent with an upper restaurant infection however with him having symptoms now for 3 weeks yellow-green sputum and wheezing this may represent pneumonia, chronic bronchitis. Chest x-ray appropriate blood work was ordered. He was treated with prednisone and albuterol x3. History & Record Review Additional record(s) reviewed:: Prior ED visit and Prior labs Lab Data Attestation: I reviewed the patient's lab results. Lab results narrative: White count is elevated without a shift. Patient's prior blood counts were all elevated. Basic metabolic panel is remarkable glucose of 142 with a normal CO2 and anion gap. Labs: Laboratory Results - last 24 hr 11/29/22 19:16 WBC 20.1 H RBC 4.07 L Hgb 12.7 L Hct 37.1 L MCV 91.2 MCH 31.2 MCHC 34.2 RDW Std Deviation 44.1 H RDW Coeff of Linh 13.2 Plt Count 505 H MPV 10.3 Immature Gran % (Auto) 0.300 Neut % (Auto) 53.5 Lymph % (Auto) 29.6 Whitley % (Auto) 11.7 H Eos % (Auto) 4.2 Baso % (Auto) 0.7 Absolute Neuts (auto) 10.8 H Absolute Lymphs (auto) 5.96 H Nucleated RBC % 0 Differential Comment SCANNED Diff Path Review May foll Sodium 139 Potassium 3.9 Chloride 108 H Carbon Dioxide 27.0 Anion Gap 4 L BUN 16 Creatinine 1.02 Estim Creat Clear Calc 76.05 Est GFR (MDRD) Af Amer 95 Est GFR (MDRD) Non-Af 79 BUN/Creatinine Ratio 15.7 Glucose 142 H Calcium 9.2 Radiography Chest X-Ray - ED: 2 View (Present the plate reviewed interpreted by me at 1959 as negative. Surgical clips noted from cholecystectomy. Cardiac silhouette and size normal. Lung parenchyma is normal. Osseous structures are unremarkable. Perihilar region is normal.) Diagnostic Testing: Clinical Impression(s) from Imaging Studies Chest X-Ray 11/29/22 19:50 IMPRESSION: No acute cardiopulmonary pathology Electronically Signed: Alex Pruitt MD at 20:03 EDT , Treatment and Re-Evaluation Narrative: Patient was reassessed at 1930. He still has some wheezing. He looks much better. He reports he feels much better. Plan is to discharge prescription for antibiotic, albuterol inhaler and prednisone. Discharge Plan Triage Chief Complaint: Shortness of Breath Other Complaint: General Illness ED Provider: Armani White Dx/Rx/DC Orders Clinical Impression: Bronchitis, purulent, chronic, Type II diabetes mellitus, Essential (primary) hypertension, Hyperlipidemia, Acute bronchospasm, Sinus tachycardia Instructions: ED Bronchitis with Wheezing (Adult) Prescriptions: New doxycycline monohydrate 100 mg capsule 100 mg PO BID Qty: 13 0RF albuterol sulfate [Ventolin HFA] 90 mcg/actuation HFA aerosol inhaler 2 puff inhalation Q4H PRN PRN (Reason: Wheezing) Qty: 1 0RF prednisone 20 mg tablet 60 mg PO DAILY Qty: 12 0RF No Action (DME) FreeStyle Lite Strips Strip See Rx Instructions .ROUTE .MEDSUPPLY Qty: 100 3RF Rx Instructions: check blood glucose daily for type 2 DM (DME) blood-glucose meter [FreeStyle Lite Meter] Kit See Rx Instructions .ROUTE .MEDSUPPLY Qty: 1 0RF Rx Instructions: As directed, check blood glucose daily for type 2 DM (DME) lancets [FreeStyle Lancets] 28 gauge misc See Rx Instructions .ROUTE .MEDSUPPLY Qty: 200 3RF Rx Instructions: check blood glucose daily for type 2 DM hydroxychloroquine 200 mg tablet 400 mg PO DAILY clopidogrel [Plavix] 75 mg tablet 75 mg PO DAILY Qty: 30 5RF amlodipine 5 mg tablet 5 mg PO DAILY Qty: 90 3RF atorvastatin [Lipitor] 80 mg tablet 80 mg PO DAILY Qty: 90 3RF Farxiga 10 mg tablet 10 mg PO QAM Qty: 90 3RF losartan 25 mg tablet 37.5 mg PO DAILY 90 Days Qty: 135 3RF metformin 1,000 mg tablet 1,000 mg PO BID 90 Days Qty: 180 3RF metoprolol tartrate 25 mg tablet 12.5 mg PO BID Qty: 90 3RF glimepiride 4 mg tablet 6 mg PO QAM Qty: 90 3RF aspirin 81 mg Tablet,Chewable 81 mg PO BREAKFAST 30 Days Qty: 30 0RF prednisone 20 mg tablet 40 mg PO DAILY Qty: 5 0RF oxycodone 5 mg capsule 5 mg PO Q6H PRN (Reason: pain) 4 Days Qty: 20 0RF (DME) blood pressure monitor [Blood Pressure Kit] Kit See Rx Instructions .ROUTE .MEDSUPPLY Qty: 1 0RF Rx Instructions: Check blood pressure daily for hypertension I10 fenofibrate 54 mg tablet 54 mg PO DAILY Qty: 90 3RF Primary Care Provider: Iftikhar Carlos Referrals: Iftikhar Carlos MD [Primary Care Provider] - 3-5 Days if not improving Activity Restrictions/Additional Instructions: 1. Take antibiotics until gone 2. 2 puffs of inhaler every 2-4 hours while awake for the next 2 to 3 days then every 4-6 hours as needed for wheezing 3. Take prednisone until gone Disposition Disposition: Home, Self Care
[2022-11-29 19:50] LABS: Differential Comment SCANNED
--- NOTE | 2022-11-29 19:50 | RAD_ITS ---
STUDY: X-RAY CHEST REASON FOR EXAM: Male, 62 years old. Cough, shortness of breath x3 weeks TECHNIQUE: PA and lateral COMPARISON: None. FINDINGS: The lungs are clear and expanded. There is no demonstrated pleural abnormality. Normal size heart. Normal mediastinum and jamey. Normal visualized pulmonary arteries. Normal visualized aortic arch and descending thoracic aorta. Dorsal spine demonstrates degenerative change. Normal visualized ribs, clavicles, and shoulders. Postsurgical changes in the left upper quadrant. There are also surgical clips in left axilla RAD/Chest PA and Lateral IMPRESSION: No acute cardiopulmonary pathology Electronically Signed: Alex Pruitt MD at 20:03 EDT ,
[2022-11-29 20:00] VITALS: PULSE 88; RESP 16
[2022-11-29] MEDS: Albuterol 2.5 MG/3 ML VIAL.NEB. INHALATION ×2 (20:00→20:18)
--- NOTE | 2022-11-29 20:39 | CPS ---
[2018] x1 Albuterol given to pt. at this time. Pt. wishes to hold off on x3 Albuterol at this time.
[2022-11-29] MEDS: predniSONE 20 MG Tablet 60 MG PO (20:51)
[2022-11-29 20:53] VITALS: RESP 20; O2SAT 96
[2022-11-29 21:57] VITALS: BP 148/68; PULSE 86; RESP 16; O2SAT 98
[2022-12-03 08:49] LABS: Pathologist Review Reviewed
== END 2022-11-29 22:26 | disposition home or self-care (01) ==
PROVIDERS: Emergency Provider Emergency Medicine; PCP Internal Medicine; Visit Provider Emergency Medicine
DX: J40 Bronchitis, not specified as acute or chronic (principal); M06.9 Rheumatoid arthritis, unspecified; E11.9 Type 2 diabetes mellitus without complications; J98.01 Acute bronchospasm; Z87.891 Personal history of nicotine dependence; I10 Essential (primary) hypertension; R00.0 Tachycardia, unspecified; E78.5 Hyperlipidemia, unspecified; Z86.73 Personal history of transient ischemic attack (TIA), and cerebral infarction without residual deficits; Z79.899 Other long term (current) drug therapy; Z79.82 Long term (current) use of aspirin; Z79.84 Long term (current) use of oral hypoglycemic drugs; Z79.02 Long term (current) use of antithrombotics/antiplatelets; Z90.49 Acquired absence of other specified parts of digestive tract
CPT/HCPCS: 71046; 80048; 85025; 87811; 94640; 94760; 99283

== ENCOUNTER → 2023-05-02 | Outpatient (CLI) | payer OTHER, SELFPAY | END | disposition home or self-care (01) | LOC: PSN 09:16 | PROVIDERS: PCP Nurse Practitioner Family; Referring Provider Nurse Practitioner Family; Visit Provider Nurse Practitioner Family | DX: R06.00 Dyspnea, unspecified (principal) | CPT/HCPCS: 94060; 94726; 94729 ==

== ENCOUNTER 2023-06-12 06:24 | Day surgery (SDC) | payer OTHER, SELFPAY ==
[2023-06-12] MEDS: Lactated Ringers 1,000 ML 15 ML IV (07:00)
[2023-06-12 07:01] VITALS: BP 148/73; PULSE 81; RESP 16; TEMP 36.3; O2SAT 99; BMI 27.3
--- NOTE | 2023-06-12 07:30 | HP.PCM_ITS ---
[facility] - General General Date of Admission: 06/12/23 Date of Service: 06/12/23 Chief Complaint: Screening colonoscopy HPI Narrative UMA WILKES, is a 62 M who presents today for screening colonoscopy. He has a past medical history of type 2 diabetes, rheumatoid arthritis, hyperlipidemia who arrives here for screening colonoscopy. He had a colonoscopy approximately 9 to 10 years ago. He is not having any change in bowel habits. Denies a bdominal pain. Denies any cramping. He is not having any chest pain or shortness of breath. He also has a past medical history of mild hypertension is under control with medicines. [facility] Medical History Aneurysm Back pain Blood disorder Blood in stool Cardiology follow-up encounter Cough Diabetes Dietary restriction Essential (primary) hypertension Fatty liver Former smoker Groin abscess High cholesterol History of echocardiogram History of GI bleed History of seizures as a child History of TIA (transient ischemic attack) Hx of colonic polyp Hyperlipidemia Injury of head and neck Leukocytosis Lipoma of forehead Mass of face Nonrheumatic mitral (valve) insufficiency Osteoarthritis Pneumonia [place] Barrett syndrome (geniculate herpes zoster) Rheumatoid arthritis Rheumatoid arthritis Right trigeminal neuralgia Screening PSA (prostate specific antigen) Stroke Type II diabetes mellitus Wears glasses Home Medications blood sugar diagnostic (FreeStyle Lite Strips) #100 ea 09/09/18 [Rx Last Taken Unknown] blood-glucose meter (FreeStyle Lite Meter kit) #1 ea 09/09/18 [Rx Last Taken Unknown] lancets 28 gauge (FreeStyle Lancets) #200 ea 09/09/18 [Rx Last Taken Unknown] hydroxychloroquine 200 mg tablet 400 mg PO DAILY 10/23/21 [History Last Taken 06/11/23] aspirin 81 mg chewable tablet 81 mg PO BREAKFAST 30 days #30 tabs 06/04/22 [Rx Last Taken 06/09/23] amlodipine 5 mg tablet 5 mg PO DAILY #90 tabs 06/12/22 [Rx Last Taken 06/12/23] atorvastatin 80 mg tablet (Lipitor) 80 mg PO DAILY cholesterol #90 tabs 06/12/22 [Rx Last Taken 06/11/23] dapagliflozin propanediol 10 mg tablet (Farxiga) 10 mg PO QAM #90 tabs 06/12/22 [Rx Last Taken 06/11/23] losartan 25 mg tablet 37.5 mg (1.5 x 25 mg) PO DAILY blood pressure 3 months #135 tabs 06/12/22 [Rx Last Taken 06/12/23] metformin 1,000 mg tablet 1,000 mg PO BID diabetes 3 months #180 tabs 06/12/22 [Rx Last Taken 06/09/23] metoprolol tartrate 25 mg tablet 12.5 mg (1/2 x 25 mg) PO BID #90 tabs 06/12/22 [Rx Last Taken 06/11/23] blood pressure monitor (Blood Pressure Kit) #1 ea 07/02/22 [Rx Last Taken Unknown] clopidogrel 75 mg tablet (Plavix) 75 mg PO DAILY #30 tabs 07/09/22 [Rx Last Taken 06/09/23] fenofibrate 54 mg tablet 54 mg PO DAILY #90 tabs 08/20/22 [Rx Last Taken 06/11/23] albuterol sulfate 90 mcg/actuation aerosol inhaler (Ventolin HFA) 2 puff inhalation Q4H PRN PRN Wheezing ##1 11/29/22 [Rx Last Taken Unknown] tirzepatide 7.5 mg/0.5 mL subcutaneous pen injector (Mounjaro) 7.5 mg subcut QWEEK 05/26/23 [History Last Taken 06/11/23] Allergy/AdvReac Type Severity Reaction Status Date / Time james seed Allergy Severe Anaphylaxis Verified 06/12/23 06:58 pneumococcal vaccine Allergy Intermediate Rash & Verified 06/12/23 06:58 [From Pneumovax 23] Swelling Family History Sister Diabetes Hypertension High cholesterol blood clots Cardiovascular disease Brother Myocardial infarction High cholesterol Heart disease TIA (transient ischemic attack) Cardiovascular disease Mother Myocardial infarction Hypertension Arthritis History of blood transfusion Heart disease Kidney disease Cardiovascular disease Father High cholesterol CVA (cerebral vascular accident) blood clots Cardiovascular disease Grandmother CVA (cerebral vascular accident) Surgical History History of appendectomy History of excision of lesion History of lymphoid or hematologic neoplasm History of splenectomy History of tonsillectomy Hx of colonoscopy Social History (Updated 05/26/23 @ 14:24 by Coty Lorenzo) housing: house current occupational status: employed 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 @ [employer] Smoking Status: Former smoker Tobacco: How many years used: 18 Electronic Cigarette Use: not used how long ago did patient quit smoking: quit 1994 second hand exposure: Yes (Smoked in the home ) alcohol intake: former year quit: 1994 substance use type: does not use what type of physical activity do you participate in: walking frequency: daily mellisa/synagogue: Buddhism seatbelt use: always additional social history: does take aspirin does take ibuprofen ROS ROS Narrative General: Denies fever/chills HENT: Frontal headache, denies stuffy nose, denies sore throat EYES: Denies changes in vision Resp: Denies cough, denies shortness of breath Cardiac: Denies chest pain GI: Denies abdominal pain, denies changes in bowel, denies nausea/vomiting : Denies changes in urination Extremity: Denies swelling MSK: Denies weakness Neuro: Denies any further numbness or tingling, had right hand numbness up to mid arm and numbness above upper lip and a mustache distribution Heme: Denies any bleeding or bruising Skin: Denies rashes Psychiatric: No complaints voiced Vital Signs Vital Signs Vital Signs: 06/12/23 07:01 06/12/23 07:01 Temperature 97.4 F L Temperature Source Temporal Pulse Rate 81 Respiratory Rate 16 Respiratory Pattern Normal Blood Pressure 148/73 H Blood Pressure Mean 98 Blood Pressure Source Monitor Blood Pressure Position Semi-Fowlers Blood Pressure Location Right Arm Pulse Ox 99 Oxygen Delivery Method Room Air Weight Weight: 185 lb 3.013 oz Body Mass Index (BMI) 27.3 Physical Exam Narrative General: Alert, oriented, no apparent distress HEENT: Atraumatic, normocephalic Eyes: extraocular movements grossly intact Neck: Supple Respiratory: normal respiratory effort Cardiovascular: no edema appreciated GI: nondistended Extremities: Moving all extremities Neuro: No overt focal neurological deficits Psych: Cooperative Assessment & Plan Assessment/Plan (1) Encounter for screening for malignant neoplasm of colon: PLAN: He was explained alternatives, risk, benefits including not withstanding bleeding, infection, sepsis, perforation, need for emergent surgery and . He will have an ASA of 3.
[2023-06-12 07:50] LABS: Bedside Glucose 79 mg/dL (74-106)
[2023-06-12 08:09] VITALS: BP 103/61; BP 148/73; PULSE 82; RESP 16; TEMP 36.1; O2SAT 98
[2023-06-12 08:10] VITALS: BP 111/48; BP 148/73; PULSE 79; RESP 16; O2SAT 98
--- NOTE | 2023-06-12 08:11 | OP.CCLET_ITS ---
06/12/2023 Gonzales Mcintyre [facility], Supervisor [employer] Re : Colonoscopy procedure for Temo Holden Dear Francisco Javier This procedure was performed on June. My impressions and recommendations are as follows: Impressions : - Preparation of the colon was fair. - Diverticulosis in the recto-sigmoid colon and in the sigmoid colon. - Stool in the rectum, in the sigmoid colon, in the transverse colon and in the cecum. - No specimens collected. Recommendations : - Discharge patient to home. - Resume previous diet. - Continue present medications. - Repeat colonoscopy in 5 years for surveillance. My findings are described in the full procedure note, which is enclosed. If I can be of further assistance, please feel free to contact me at . Sincerely, Thomas Little, 06/12/2023 8:10:56 AM This report has been signed electronically.
--- NOTE | 2023-06-12 08:11 | OP.COLON_ITS ---
Patient Name: Temo Holden Procedure Date: 06/12/2023 7:31 AM Date of : 1960 Age: 62 Procedure: Colonoscopy Indications: Screening for colorectal malignant neoplasm Providers: Thomas Little DO Referring MD: Thomas Little DO Medicines: Monitored Anesthesia Care Patient Profile: This is a 62 year old male. Refer to note in patient chart for documentation of history and physical. Last Colonoscopy: more than 10 years ago. Complications: No immediate complications. Procedure: Pre-Anesthesia Assessment: - Prior to the procedure, a History and Physical was performed, and patient medications and allergies were reviewed. The patient is competent. The risks and benefits of the procedure and the sedation options and risks were discussed with the patient. All questions were answered and informed consent was obtained. Patient identification and proposed procedure were verified by the physician. Mental Status Examination: alert and oriented. Prophylactic Antibiotics: The patient does not require prophylactic antibiotics. Prior Anticoagulants: The patient has taken no anticoagulant or antiplatelet agents. ASA Grade Assessment: II - A patient with mild systemic disease. After reviewing the risks and benefits, the patient was deemed in satisfactory condition to undergo the procedure. The anesthesia plan was to use monitored anesthesia care (MAC). Immediately prior to administration of medications, the patient was re-assessed for adequacy to receive sedatives. The heart rate, respiratory rate, oxygen saturations, blood pressure, adequacy of pulmonary ventilation, and response to care were monitored throughout the procedure. The physical status of the patient was re-assessed after the procedure. After I obtained informed consent, the scope was passed under direct vision. Throughout the procedure, the patient's blood pressure, pulse, and oxygen saturations were monitored continuously. The Colonoscope was introduced through the anus and advanced to the cecum, identified by appendiceal orifice and ileocecal valve. The colonoscopy was performed without difficulty. The patient tolerated the procedure well. The quality of the bowel preparation was fair. The ileocecal valve, appendiceal orifice, and rectum were photographed. Scope In: 7:45:02 AM Scope Withdrawal Time 0 hours 11 minutes 27 seconds Scope Out: 8:03:15 AM Total Procedure Duration Time 0 hours 18 minutes 13 seconds Findings: The perianal and digital rectal examinations were normal. A few small-mouthed diverticula were found in the recto-sigmoid colon and sigmoid colon. Stool was found in the rectum, in the sigmoid colon, in the transverse colon and in the cecum. Impression: - Preparation of the colon was fair. - Diverticulosis in the recto-sigmoid colon and in the sigmoid colon. - Stool in the rectum, in the sigmoid colon, in the transverse colon and in the cecum. - No specimens collected. Recommendation: - Discharge patient to home. - Resume previous diet. - Continue present medications. - Repeat colonoscopy in 5 years for surveillance. Procedure Code(s): --- Professional --- G0121, Colorectal cancer screening; colonoscopy on individual not meeting criteria for high risk CPT copyright 2021 [employer]. All rights reserved. The codes documented in this report are preliminary and upon fence erector review may be revised to meet current compliance requirements. Thomas Little DO 06/12/2023 8:10:56 AM This report has been signed electronically. Number of Addenda: 0 Note Initiated On: 06/12/2023 7:31 AM
[2023-06-12 08:15] VITALS: BP 117/65; BP 148/73; PULSE 77; RESP 16; O2SAT 97
[2023-06-12 08:20] VITALS: BP 132/68; BP 148/73; PULSE 70; RESP 16; TEMP 36.1; O2SAT 99
[2023-06-12 08:38] VITALS: BP 148/73
== END 2023-06-12 08:56 | disposition home or self-care (01) ==
LOC: EN 06:25 → AC 06:26
PROVIDERS: PCP Nurse Practitioner Family; Referring Provider Internal Medicine Gastroenterology; Visit Provider Internal Medicine Gastroenterology
PROC: 0DJD8ZZ Inspection of Lower Intestinal Tract, Via Natural or Artificial Opening Endoscopic (ICD-10-PCS; CPT 45378; principal; 2023-06-12 07:25)
DX: Z12.11 Encounter for screening for malignant neoplasm of colon (principal); E11.9 Type 2 diabetes mellitus without complications; K57.30 Diverticulosis of large intestine without perforation or abscess without bleeding; Z87.891 Personal history of nicotine dependence; Z79.84 Long term (current) use of oral hypoglycemic drugs; I10 Essential (primary) hypertension; E78.00 Pure hypercholesterolemia, unspecified; Z86.73 Personal history of transient ischemic attack (TIA), and cerebral infarction without residual deficits; Z79.899 Other long term (current) drug therapy; Z79.82 Long term (current) use of aspirin; Z79.02 Long term (current) use of antithrombotics/antiplatelets; Z90.49 Acquired absence of other specified parts of digestive tract; Z90.81 Acquired absence of spleen
CPT/HCPCS: 45378; 82962; J7120; J2405

== ENCOUNTER → 2023-08-28 | Outpatient (CLI) | payer OTHER, SELFPAY ==
[2023-08-28 12:40] LABS: Absolute Lymphocyte Count 5.83 X10^3/uL (0.83-4.51); Absolute Neutrophil Count 3.9 X10^3/uL (2.0-7.7); Basophil# 0.16 X10^3/uL; Basophil% 1.3 % (0-1); Eosinophil# 0.93 X10^3/uL; Eosinophils% 7.8 % (0-5); Hemoglobin 14.6 g/dL (13.0-16.5); Lymphocyte # 5.83 X10^3/ul (0.83-4.51); Lymphocyte % 48.7 % (19-41); Mean Corp Hgb Conc 33.2 g/dL (32-36); Mean Corpuscular Hgb 30.7 pg (27.0-32.0); Mean Corpuscular Volume 92.4 fL (80-94); Mean Platelet Vol. 10.9 fl (6.2-12.0); Monocyte# 1.11 X10^3/uL; Monocyte% 9.3 % (0-10); NRBC Flagged by Analyzer 0 % (0-5); Neutrophil # 3.93 X10^3/uL (2.7-7.7); Neutrophil % 32.7 % (47-70); POSITIVE DIFFERENTIAL YES; POSITIVE MORPHOLOGY YES; Platelet Count 423 K/mm3 (150-450); RBC Distribution Width CV 13.3 % (11.6-14.6); RBC Distribution Width SD 45.4 fl (35.1-43.9); Red Blood Count 4.76 M/mm3 (4.6-6.2)
[2023-08-28 12:42] LABS: Vitamin B12 276 pg/mL (211-911); Vitamin D,25 Hydroxy 21.4 ng/mL
[2023-08-28 12:51] LABS: Differential Indicated SCAN CRITERIA MET
[2023-08-28 13:05] LABS: ALB/GLOB Ratio 1.2 RATIO (0.9-2.4); AST(SGOT) 22 U/L (15-37); Alanine Aminotransfer ALT/SGPT 22 U/L (16-61); Albumin, Serum 4.1 g/dL (3.2-5.0); Alkaline Phosphatase 64 U/L (45-117); Anion Gap 8 (5-15); BUN 13 mg/dL (7-18); BUN/Creat Ratio 16.8 RATIO (10-20); Calcium,Total 9.2 mg/dL (8.5-10.1); Chloride 105 mmol/L (98-107); Cholesterol 273 mg/dL (200); Creatinine, Serum 0.78 mg/dL (0.70-1.30); EST Glomerular Filtration Rate 108 mL/min (>60); Est Glom Filt Rate - Afr Amer 131 mL/min (>60); Globulin 3.3 g/dL (2.2-4.2); Glucose 88 mg/dL (74-106); High Density Lipoprotein 50 mg/dL; Protein, Total 7.4 g/dL (6.4-8.2); Sodium Level 136 mmol/L (136-145); Thyroid Stim Hormone (TSH) 1.74 uIU/mL (0.358-3.74); Triglycerides 154 mg/dL; Very Low Density Lipoprotein 31 mg/dL (5-40)
[2023-08-28 13:09] LABS: Differential Comment SCANNED
[2023-08-28 13:10] LABS: Atypical Lymphocyte 1+ %
== END | disposition home or self-care (01) ==
LOC: VSLAB 08:57
PROVIDERS: PCP Nurse Practitioner Family; Visit Provider Nurse Practitioner Family
DX: E11.9 Type 2 diabetes mellitus without complications (principal); E55.9 Vitamin D deficiency, unspecified
CPT/HCPCS: 36415; 80053; 80061; 82306; 82607; 84153; 84443; 85025; G0103

== ENCOUNTER → 2023-09-23 | Outpatient (CLI) | payer OTHER, SELFPAY ==
[2023-09-23 10:37] LABS: Microalbumin,Random Urine 8.3 mg/L (NO RANGE EST.)
[2023-09-23 10:54] LABS: PSA,Total- Diagnostic 9.93 ng/mL (0.0-4.0)
[2023-09-24 13:08] LABS: PSA, Free % 7.1 % (.)
== END | disposition home or self-care (01) ==
LOC: LAB 09:36
PROVIDERS: PCP Nurse Practitioner Family; Visit Provider Nurse Practitioner
DX: R97.20 Elevated prostate specific antigen [PSA] (principal); E11.9 Type 2 diabetes mellitus without complications
CPT/HCPCS: 36415; 82043; 84153; 84154

== ENCOUNTER → 2023-10-13 | Outpatient (CLI) | payer OTHER, SELFPAY ==
--- NOTE | 2023-10-13 | PROSBIL_PTH ---
PATIENT: UMA WILKES LOC: [facility] U#:[id number] AGE/SX: 63/M ROOM: RE10/13/[address]: Dr. Luis Valladares MD : 1960 BED: DIS: 10/13/2023 SPEC #: [id number] RECD: 10/14/23 10:52 STATUS: NIGEL VIKASH #: [id number] CHLOE: 10/13/23 00:[address]: Luis Valladares DEPT: SURGICAL PATHOLOGY RECD BY: Nayeli العلي ENTERED: 10/14/23 10:53 SP TYPE: PROST BX ELSIE DR: Gonzales Mcintyre, TED Tissues: A - PROSTATE RIGHT B - PROSTATE RIGHT C - PROSTATE RIGHT D - PROSTATE LEFT E - PROSTATE LEFT F - PROSTATE LEFT Procedures: PROSTATE BX HEADER OPERATION: Prostate biopsy PRE-OP DIAGNOSIS: Elevated PSA TISSUE SUBMITTED: A - Right apex, B - Right mid, C - Right base, D - Left apex, E - Left mid, F - Left base MICROSCOPIC DIAGNOSIS A. Right prostate, apex, core biopsy: Adenocarcinoma. [place] grade: 3+3 (6) Cores involved: 1/1 Tissue involved: <1% Greatest tumor length: 2.0 millimeters See comment. B. Right prostate, mid, core biopsy: Adenocarcinoma. Curt grade: 3+3 (6) Cores involved: 1/1 Tissue involved: 80% Greatest tumor length: 10.0 millimeters (discontinuous) See comment. C. Right prostate, base, core biopsy: Adenocarcinoma. [place] grade: 3+4 (7) Cores involved: 2/2 Tissue involved: 75% Greatest tumor length: 9.0 millimeters (discontinuous) Perineural invasion present. See comment. D. Left prostate, apex, core biopsy: Adenocarcinoma. [place] grade: 3+4 (7) Cores involved: 1/2 Tissue involved: 50 % Greatest tumor length: 11.0 millimeters (discontinuous) See comment. E. Left prostate, mid, core biopsy: Adenocarcinoma. [place] grade: 4+3 (7) Cores involved: 2/2 Tissue involved: 70 % Greatest tumor length: 10.5 millimeters See comment. F. Left prostate, base, core biopsy: Adenocarcinoma. Curt grade: 4+4 (8) Cores involved: 2/2 Tissue involved: 65% Greatest tumor length: 9.5 millimeters See comment. NAHUM/ 10/15/2023 COMMENT A, B, C, D, E ,F. Immunohistochemistry ([id number]) supports the above diagnosis. Case has been reviewed in consultation with Dr. Carmichael who concurs with the above diagnosis. IDC:[email or web address] MICROSCOPIC DESCRIPTION Slides are reviewed. GROSS DESCRIPTION A - Received is one container designated prostate, right apex. The specimen consists of one elongated fragments of light grullon-white soft tissue measuring 0.7 cm in length and 0.1 cm in diameter. The specimen is totally submitted in one cassette. B - Received is one container designated prostate, right mid. The specimen consists of one elongated fragments of light grullon-white soft tissue measuring 1.4 cm in length and 0.1 cm in diameter. The specimen is totally submitted in one cassette. C - Received is one container designated prostate, right base. The specimen consists of two elongated fragments of light grullon-white soft tissue each measuring 1.5 cm in length and 0.1 cm in diameter. The specimen is totally submitted in one cassette. D - Received is one container designated prostate, left apex. The specimen consists of two elongated fragments of light grullon-white soft tissue measuring 1.5 and 2.0 cm in length and 0.1 cm in diameter. The specimen is totally submitted in one cassette. E - Received is one container designated prostate, left mid. The specimen consists of two elongated fragments of light grullon-white soft tissue measuring 1.5 and 2.0 cm in length and 0.1 cm in diameter. The specimen is totally submitted in one cassette. F - Received is one container designated prostate, left base. The specimen consists of two elongated fragments of light grullon-white soft tissue measuring 1.6 and 2.1 cm in length and 0.1 cm in diameter. The specimen is totally submitted in one cassette. MAIK/ 10/14/2023 TC:0 CPT: 01817 x6
--- NOTE | 2023-10-13 | IMM_PTH ---
PATIENT: UMA WILKES LOC: [facility] U#:[id number] AGE/SX: 63/M ROOM: RE10/13/[address]: Dr. Luis Valladares MD : 1960 BED: DIS: 10/13/2023 SPEC #: [id number] RECD: 10/15/23 12:07 STATUS: NIGEL REQ #: [id number] CHLOE: 10/13/23 00:[address]: Luis Valladares DEPT: IMMUNOHISTOCHEMISTRY RECD BY: Gary Ahuja ENTERED: 10/15/23 12:08 SP TYPE: IMMUNO OTHR DR: Gonzales Mcintyre, MANAGER LOSS PREVENTION-C Tissues: A - PROSTATE RIGHT B - PROSTATE RIGHT C - PROSTATE RIGHT D - PROSTATE LEFT E - PROSTATE LEFT F - PROSTATE LEFT Procedures: 34BE12 (add) P40 (add) P40 (initial) [facility]YSIC[facility] INSTIT[facility] [address] [address] SPECIMEN INFORMATION: Tissue Source: A- right apex, B- right mid, C- right base, D- left apex, E- left mid, F- left base Clinical Info: Elevated PSA Specimen Number: [id number] A, B, C, D, E, F CPT code: 73565,25215t40 METHODOLOGY: Deparaffinized sections of prefer/formalin-fixed tissue or PAP/DQ stained slides are incubated with monoclonal/polyclonal antibodies/oligonucleotide probes. Localization is made via biotin free immunoperoxidase method. Appropriate controls are performed and reacted as expected. Results on target cell population are indicated in the following table: RESULTS: ANTIBODY / CLONE RESULT Block A P40 (BC28) negative 34BE12 (34BE12) negative Block B P40 (BC28) negative 34BE12 (34BE12) negative Block C P40 (BC28) negative 34BE12 (34BE12) negative Block D P40 (BC28) negative 34BE12 (34BE12) negative Block E P40 (BC28) negative 34BE12 (34BE12) negative Block F P40 (BC28) negative 34BE12 (34BE12) negative These tests were developed and their performance characteristics determined by [facility]. They may not have been cleared or approved by the U.S. Food and Drug Administration. The FDA has determined that such clearance or approval is not necessary. The above immunohistochemical/dualISH markers are ordered and reviewed by the Pathologist. INTERPRETATION: A. Prostate, right apex, core biopsy: Adenocarcinoma. B. Prostate, right mid, core biopsy: Adenocarcinoma. C. Prostate, right base, core biopsy: Adenocarcinoma. D. Prostate, left apex, core biopsy: Adenocarcinoma. E. Prostate, left mid, core biopsy: Adenocarcinoma. F. Prostate, left base, core biopsy: Adenocarcinoma. NAHUM/ 10/16/2023
== END | disposition home or self-care (01) ==
LOC: LABSPEC 15:51
PROVIDERS: PCP Nurse Practitioner Family; Referring Provider Urology; Visit Provider Urology
DX: R97.20 Elevated prostate specific antigen [PSA] (principal)
CPT/HCPCS: 88305; 88341; 88342; G0416

== ENCOUNTER → 2023-10-28 | Outpatient (CLI) | payer OTHER, SELFPAY ==
--- NOTE | 2023-10-28 07:45 | PET_ITS ---
EXAMINATION: F [address] HISTORY: 63-year-old male with history of primary prostate carcinoma presenting for initial staging examination. COMPARISON EXAMINATION: None available INDEX LESION SIZE PROMISE SCORE SUV TUMOR/PAROTID RATIO INTERPRETATION Prostate gland 23.6 mm 3 49.83 2.4 Fulfills quantitative criteria for neoplasia TECHNIQUE: Following the intravenous administration of 9.15 mCi of F 18 Pylarify PSMA- via the right wrist, image acquisitions of the head, neck, chest, abdomen and pelvis contemporaneously interpreted with the CT of neck, chest, abdomen and pelvis dated 10/28/2023 to the level of the mid thigh at 70 minutes post-tracer distribution reveal: The examination was interpreted using the EANM (Sandy et al., Journal of Nuclear Medicine Molecular Imaging 44:1622, 2017) and PROMISE (Quincy et al., Journal of Nuclear Medicine 59:469, 2018) interpretive criteria. HEIGHT: 69 inches WEIGHT: 177 pounds PSMA expression score PROMISE criteria: High (3): SUV ? parotid-salivary gland, intermediate (2): SUV ? liver, low (1): > blood pool, < liver, (0): < blood pool. SUV reference values: Parotid glands 20.47 Normal liver parenchyma 7.9 Blood pool 1.5 FINDINGS: Head/Neck: Symmetric radiopharmaceutical is defined in the right and left parotid and submandibular glands. Physiologic uptake is identified in the nasal cavity. There is no evidence of abnormal increased tracer uptake within the cranial vault. CHEST: There is no evidence of abnormal increased tracer uptake within the context of the bilateral hemithorax pulmonary parenchyma, mediastinal structures, right-left thoracic perihilum, the bilateral periclavicular and axillary regions. Pertinent chest CT findings are as follows. Atherosclerotic calcification is defined in the thoracic aorta. Coronary arterial calcification is observed. Surgical clips are identified in the left axilla. There is a soft tissue density noted in the right axilla with a calculated standard uptake value of 2.08 and PROMISE score of 1. Mediastinal soft tissue densities demonstrate no evidence of increased tracer uptake. There are no parenchymal densities-nodules defined in the right and left hemithorax with quantitatively significant increased radiotracer uptake. Abdomen/Pelvis: Facilitated radiotracer is defined in the lower pelvis and left midline caudal to the urinary bladder associated with the prostate gland. Uptake extends from the apex to base generating a calculated standard uptake value of 49.83 and PROMISE score of 3. The maximal axial diameter of the metabolic, morphologic abnormality is 23.6 mm. Normal physiologic uptake is noted in the hepatic and splenic parenchyma. There is symmetric demonstration of the right and left kidneys, normal uptake in the urinary bladder and visualized intestinal tract. Review of CT of the abdomen and pelvis reveals the following. Abdominal aortic calcification is defined without evidence of aneurysm. Abdominal and pelvic arterial calcification is encountered. Calcified phlebolith formation is noted in the bilateral lower hemipelvis. Right and left inguinal soft tissue densities are ametabolic. SKELETAL: Degenerative changes are defined in the axial skeletal structures without evidence of increased radiotracer uptake. PET/PET/CT Tumor Base -Thigh Init IMPRESSION: 1. ABNORMAL EXAMINATION INDICATIVE OF MALIGNANT-VIABLE NEOPLASM. 2. Enhanced tracer uptake identified in the region of the prostate gland fulfills quantitative criteria for neoplastic transformation. 3. There is no definitive scintigraphic evidence of diffuse metastatic disease. Electronic Signature Amrit Joiner D.O. Accurate Quantification of SUVs and standardized PROMISE scores for this report are calculated using the exclusive [employer], (U.S. Patent No. [phone] [place] patent [phone] ). Standardization and correction of the FDG SUV metric exclusively available with [employer] intellectual property, allow for vendor non-specific objective quantitative sequential FDG PET-CT comparison and otherwise unobtainable optimization of the sensitivity and specificity of the examination. https://[employer] Electronically Signed: Amrit Joiner DO at 15:36 EDT ,
== END | disposition home or self-care (01) ==
LOC: ONC 07:33
PROVIDERS: PCP Nurse Practitioner Family; Referring Provider Urology; Visit Provider Urology
DX: C61 Malignant neoplasm of prostate (principal)
CPT/HCPCS: 78815; A9595

== ENCOUNTER 2023-12-05 10:51 | Observation (INO) | payer OTHER, SELFPAY ==
[2023-11-26 17:30] LABS: Hematocrit 41.1 % (40-54); Hemoglobin 13.9 g/dL (13.0-16.5); Mean Corp Hgb Conc 33.8 g/dL (32-36); Mean Corpuscular Hgb 30.8 pg (27.0-32.0); Mean Corpuscular Volume 91.1 fL (80-94); Mean Platelet Vol. 10.9 fl (6.2-12.0); Platelet Count 417 K/mm3 (150-450); RBC Distribution Width CV 13.1 % (11.6-14.6); RBC Distribution Width SD 43.8 fl (35.1-43.9); Red Blood Count 4.51 M/mm3 (4.6-6.2); White Blood Count 13.3 K/mm3 (4.4-11.0)
[2023-11-26 17:53] LABS: Hemoglobin A1c 6.2 % (3.8-5.6)
[2023-11-26 18:27] LABS: Anion Gap 7 (5-15); BUN 18 mg/dL (7-18); BUN/Creat Ratio 22.1 RATIO (10-20); Calcium,Total 9.6 mg/dL (8.5-10.1); Chloride 107 mmol/L (98-107); Creatinine, Serum 0.82 mg/dL (0.70-1.30); EST Glomerular Filtration Rate 102 mL/min (>60); Est Glom Filt Rate - Afr Amer 123 mL/min (>60); Glucose 90 mg/dL (74-106); Potassium 3.7 mmol/L (3.5-5.1); Sodium Level 140 mmol/L (136-145)
[2023-12-05] VITALS (16 sets, daily range): BP systolic 115–144; BP diastolic 54–71; PULSE 77–101; RESP 14–18; TEMP 36.1–37.2; O2SAT 90–100; BMI 26.1
[2023-12-05] MEDS: Lactated Ringers 1,000 ML 15 ML IV (06:19)
--- NOTE | 2023-12-05 06:43 | PCM.PRE.AN2 ---
ASA Classification* ASA Classification ASA Classification: 3 Assessment & Plan Anesthesia* Anesthesia Assessment Anesthesia Assessment: Discussed sedation and/or anesthesia options, risks, benefits, and alternatives with patient/parents/legal guardian/POA. Questions invited. The patient/parents/legal guardian/POA seems to understand and agrees to proceed with anesthesia plan. Reviewed the physical assessment, medical history, allergy history and patient home medications list prior to surgery/procedure/anesthetic and documented any changes. Performed airway and anesthesia risk assessments. Anesthesia Type Anesthesia Type: General Anesthesia Focused Assessment* Temperature: 96.9 F Pulse Rate: 77 Blood Pressure: 144/71 Respiratory Rate: 16 Pulse Ox: 100 Airway Assessment Mouth opens: >3 cm Mallampati Score: II Focused Labs Anesthesia Preop lab: CBC WBC 13.3 K/mm3 (4.4-11.0) H 11/26/23 16:17 RBC 4.51 M/mm3 (4.6-6.2) L 11/26/23 16:17 Hgb 13.9 g/dL (13.0-16.5) 11/26/23 16:17 Hct 41.1 % (40-54) 11/26/23 16:17 Plt Count 417 K/mm3 (150-450) 11/26/23 16:17 CHEMISTRY Potassium 3.7 mmol/L (3.5-5.1) 11/26/23 16:17 Sodium 140 mmol/L (136-145) 11/26/23 16:17 Phosphorus 3.5 mg/dL (2.5-4.9) 02/04/23 07:37 BUN 18 mg/dL (7-18) 11/26/23 16:17 Creatinine 0.82 mg/dL (0.70-1.30) 11/26/23 16:17 Glucose 90 mg/dL (74-106) 11/26/23 16:17 POC Glucose 79 mg/dL (74-106) 06/12/23 06:43 TSH 1.74 uIU/mL (0.358-3.74) 08/28/23 09:08 COAG PT 12.4 SECONDS (11.7-14.9) 07/02/22 10:23 Pre-Assessment Diagnosis/Proposed Procedure Planned Operative Procedure(s): Prostatectomy,Radical,laparoscopic,bilateral lymphandenectomy Anesthesia History Anesthesia History - cooler room worker: Anesthesia History - cooler room worker Hx Hospitalization No 11/24/23 14:15 Any Problems With Anesthesia No 11/24/23 14:15 Cholinesterase deficiency No 11/24/23 14:15 You/Your Family Experience No 11/24/23 14:15 fever (hyperthermia) with Relationship Recent Exposure to Contagious No 12/05/23 06:16 Disease Does patient have nerve No 11/24/23 14:15 stimulator Patient instructed to have device shut off --Does patient have Pacemaker No 12/05/23 06:16 or ICD? When Was Last Pacemaker Check QUESTION #4 FULL TEXT: You/Your Family Experience fever (hyperthermia) with Anesthesia Last Oral Intake Last Oral intake: Last Oral Intake NPO since 22:00 12/05/23 06:16 Meds taken in AM with sips of Yes 12/05/23 06:16 water? Meds patient instructed to take am of surgery PONV PONV - cooler room worker: PONV - cooler room worker Female No 11/24/23 14:15 HX of Motion Sickness No 11/24/23 14:15 HX of N/V After Surgery No 11/24/23 14:15 Non-Smoker Yes 11/24/23 14:15 Duration of Surgery greater Yes 11/24/23 14:15 than 60 minutes Number of Risk Factors 2 11/24/23 14:15 PONV Score Moderate Risk 11/24/23 14:15 Height & Weight Height & Weight: Anesthesia: Height & Weight Height 5 ft 9 in 12/05/23 06:16 Weight: 80.3 kg 12/05/23 06:16 Body Mass Index (BMI) 26.1 12/05/23 06:16 Respiratory Assessment Respiratory Assessment - cooler room worker: Respiratory Tract Infection Hx - cooler room worker Hx Respiratory Tract Infection No 11/24/23 14:15 STOP Sleep Apnea STOP Sleep Apnea - cooler room worker: STOP Sleep Apnea - cooler room worker Hx Hypertension Yes: CONTROLLED WITH MEDS 11/24/23 14:15 Hx Sleep Apnea No 11/24/23 14:15 CPAP BIPAP Do you snore loudly (louder No 11/24/23 14:15 than talking or can be heard Do you often feel tired/ No 11/24/23 14:15 fatigued/ sleepy during daytime? Has anyone observed you stop No 11/24/23 14:15 breathing during sleep? STOP Results Negative 11/24/23 14:15 QUESTION #5 FULL TEXT : Do you snore loudly (louder than talking or can be heard through closed doors)? Tobacco Use History Tobacco Use History - cooler room worker: Tobacco Use History - cooler room worker Tobacco Use Non-smoker 06/03/22 08:23 Smoking Status Former smoker 11/24/23 14:15 Hx Tobacco Use No 11/24/23 14:15 Years Smoking Packs Smoked per Day Smoking Cessation Date was No - quit smoking greater 11/24/23 14:15 within the last 15 years than 15 years ago Hx Smoking Cessation Date Hx Smoking Cessation No 11/24/23 14:15 Counseling Hematologic Medial History Hematologic Hx - cooler room worker: Hematologic Medical Hx - laundry aide Hx of Blood Transfusion Yes 11/24/23 14:15 Hx of Transfusion in last 3 No 11/24/23 14:15 Months Date of Last Transfusion (if within last 3 months) Ever experience any problems No 11/24/23 14:15 with transfusion(s)? Specify any problems Hx of Preganancy in last 3 N/A 11/24/23 14:15 Months Nurse Filling Out Transfusion VCHRISTIN 11/24/23 14:15 & Questions: Date: 11/24/23 11/24/23 14:15 Time: 14:16 11/24/23 14:15 Patient unable to answer at this time (ie. confused, unrespo /Reproduction History /Reproductive History - cooler room worker: /Reproductive Hx- cooler room worker Hx Now Gestational Age (in weeks): EDC: Hx Hx Para Hx Section SAB No 11/24/23 14:15 Active Medications Active Medications: Current Medications Generic Name Dose Route Start Last Admin Trade Name Freq PRN Reason Stop Dose Admin Cefazolin Sodium 2 gm/ Sodium 110 mls @ 150 mls/hr 12/05/23 07:30 Chloride IV 12/05/23 08:13 PREOP ONE Lactated Ringer's 1,000 mls @ 15 mls/hr 12/05/23 06:15 12/05/23 06:19 IV 15 mls/hr .Q48H KAL Administration PFSH Medical History Wears glasses Diabetes Blood disorder Fatty liver High cholesterol Injury of head and neck Dietary restriction History of GI bleed Former smoker Aneurysm History of echocardiogram Cardiology follow-up encounter Hx of colonic polyp Leukocytosis Blood in stool Cough Screening PSA (prostate specific antigen) Osteoarthritis Rheumatoid arthritis Groin abscess Back pain History of seizures as a child Right trigeminal neuralgia Lipoma of forehead Mass of face Trevor Barrett syndrome (geniculate herpes zoster) Rheumatoid arthritis Nonrheumatic mitral (valve) insufficiency History of TIA (transient ischemic attack) Essential (primary) hypertension Type II diabetes mellitus Stroke Pneumonia Hyperlipidemia Home Medications ?Medication ?Instructions ?Recorded ?Last Taken ?Type blood sugar diagnostic (FreeStyle #100 ea 09/09/18 Unknown Rx Lite Strips) blood-glucose meter (FreeStyle #1 ea 09/09/18 Unknown Rx Lite Meter kit) lancets 28 gauge (FreeStyle #200 ea 09/09/18 Unknown Rx Lancets) hydroxychloroquine 200 mg tablet 400 mg PO DAILY 10/23/21 12/04/23 History aspirin 81 mg chewable tablet 81 mg PO BREAKFAST 30 days #30 tabs 06/04/22 11/23/23 Rx amlodipine 5 mg tablet 5 mg PO DAILY #90 tabs 06/12/22 12/05/23 05:30 Rx atorvastatin 80 mg tablet (Lipitor) 80 mg PO DAILY cholesterol #90 tabs 06/12/22 12/04/23 Rx dapagliflozin propanediol 10 mg 10 mg PO QAM #90 tabs 06/12/22 12/04/23 Rx tablet (Farxiga) losartan 25 mg tablet 37.5 mg (1.5 x 25 mg) PO DAILY 06/12/22 12/05/23 Rx blood pressure 3 months #135 tabs blood pressure monitor (Blood #1 ea 07/02/22 Unknown Rx Pressure Kit) clopidogrel 75 mg tablet (Plavix) 75 mg PO DAILY #30 tabs 07/09/22 11/23/23 Rx fenofibrate 54 mg tablet 54 mg PO DAILY #90 tabs 08/20/22 06/11/23 Rx tirzepatide 7.5 mg/0.5 mL 7.5 mg subcut QWEEK 05/26/23 11/23/23 History subcutaneous pen injector (Kiya) metoprolol tartrate 25 mg tablet 12.5 mg (1/2 x 25 mg) PO BID #30 10/30/23 12/05/23 Rx tabs Allergy/AdvReac Type Severity Reaction Status Date / Time james seed Allergy Severe Anaphylaxis Verified 12/05/23 06:15 pneumococcal vaccine (From Allergy Intermediate Rash & Verified 12/05/23 06:15 Pneumovax 23) Swelling Family History Sister Diabetes Hypertension High cholesterol blood clots Cardiovascular disease Brother Myocardial infarction High cholesterol Heart disease TIA (transient ischemic attack) Cardiovascular disease Mother Myocardial infarction Hypertension Arthritis History of blood transfusion Heart disease Kidney disease Cardiovascular disease Father High cholesterol CVA (cerebral vascular accident) blood clots Cardiovascular disease Grandmother CVA (cerebral vascular accident) Surgical History Hx of colonoscopy History of excision of lesion History of tonsillectomy History of lymphoid or hematologic neoplasm History of appendectomy History of splenectomy Social History housing: house current occupational status: employed 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 @ [employer] Smoking Status: Former smoker Tobacco: How many years used: 18 Electronic Cigarette Use: not used how long ago did patient quit smoking: quit 1994 second hand exposure: Yes (Smoked in the home ) alcohol intake: former year quit: 1994 substance use type: does not use what type of physical activity do you participate in: walking frequency: daily mellisa/alevism: Anglican seatbelt use: always additional social history: does take aspirin does take ibuprofen Review of Systems (Anesthesia) ROS Narrative System reviewed and no additional complaints, except as documented.
--- NOTE | 2023-12-05 07:20 | PCM.HP.STD ---
HPI - General General Date of Service: 12/05/23 Chief Complaint: Prostate cancer HPI Narrative UMA WILKES, is a 63 M who presents for a radical prostatectomy and total pelvic lymph node dissection [facility] Medical History Wears glasses Diabetes Blood disorder Fatty liver High cholesterol Injury of head and neck Dietary restriction History of GI bleed Former smoker Aneurysm History of echocardiogram Cardiology follow-up encounter Hx of colonic polyp Leukocytosis Blood in stool Cough Screening PSA (prostate specific antigen) Osteoarthritis Rheumatoid arthritis Groin abscess Back pain History of seizures as a child Right trigeminal neuralgia Lipoma of forehead Mass of face [place] Barrett syndrome (geniculate herpes zoster) Rheumatoid arthritis Nonrheumatic mitral (valve) insufficiency History of TIA (transient ischemic attack) Essential (primary) hypertension Type II diabetes mellitus Stroke Pneumonia Hyperlipidemia Home Medications ?Medication ?Instructions ?Recorded ?Last Taken ?Type blood sugar diagnostic (FreeStyle #100 ea 09/09/18 Unknown Rx Lite Strips) blood-glucose meter (FreeStyle #1 ea 09/09/18 Unknown Rx Lite Meter kit) lancets 28 gauge (FreeStyle #200 ea 09/09/18 Unknown Rx Lancets) hydroxychloroquine 200 mg tablet 400 mg PO DAILY 10/23/21 12/04/23 History aspirin 81 mg chewable tablet 81 mg PO BREAKFAST 30 days #30 tabs 06/04/22 11/23/23 Rx amlodipine 5 mg tablet 5 mg PO DAILY #90 tabs 06/12/22 12/05/23 05:30 Rx atorvastatin 80 mg tablet (Lipitor) 80 mg PO DAILY cholesterol #90 tabs 06/12/22 12/04/23 Rx dapagliflozin propanediol 10 mg 10 mg PO QAM #90 tabs 06/12/22 12/04/23 Rx tablet (Farxiga) losartan 25 mg tablet 37.5 mg (1.5 x 25 mg) PO DAILY 06/12/22 12/05/23 Rx blood pressure 3 months #135 tabs blood pressure monitor (Blood #1 ea 07/02/22 Unknown Rx Pressure Kit) clopidogrel 75 mg tablet (Plavix) 75 mg PO DAILY #30 tabs 07/09/22 11/23/23 Rx fenofibrate 54 mg tablet 54 mg PO DAILY #90 tabs 08/20/22 06/11/23 Rx tirzepatide 7.5 mg/0.5 mL 7.5 mg subcut QWEEK 05/26/23 11/23/23 History subcutaneous pen injector (Kiya) metoprolol tartrate 25 mg tablet 12.5 mg (1/2 x 25 mg) PO BID #30 10/30/23 12/05/23 Rx tabs Allergy/AdvReac Type Severity Reaction Status Date / Time james seed Allergy Severe Anaphylaxis Verified 12/05/23 06:15 pneumococcal vaccine (From Allergy Intermediate Rash & Verified 12/05/23 06:15 Pneumovax 23) Swelling Family History Sister Diabetes Hypertension High cholesterol blood clots Cardiovascular disease Brother Myocardial infarction High cholesterol Heart disease TIA (transient ischemic attack) Cardiovascular disease Mother Myocardial infarction Hypertension Arthritis History of blood transfusion Heart disease Kidney disease Cardiovascular disease Father High cholesterol CVA (cerebral vascular accident) blood clots Cardiovascular disease Grandmother CVA (cerebral vascular accident) Surgical History Hx of colonoscopy History of excision of lesion History of tonsillectomy History of lymphoid or hematologic neoplasm History of appendectomy History of splenectomy Social History housing: house current occupational status: employed 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 @ [employer] Smoking Status: Former smoker Tobacco: How many years used: 18 Electronic Cigarette Use: not used how long ago did patient quit smoking: quit 1994 second hand exposure: Yes (Smoked in the home ) alcohol intake: former year quit: 1994 substance use type: does not use what type of physical activity do you participate in: walking frequency: daily mellisa/spiritism: Pentecostal seatbelt use: always additional social history: does take aspirin does take ibuprofen Vital Signs Vital Signs Vital Signs: 12/05/23 06:16 12/05/23 06:16 12/05/23 06:43 Temperature 96.9 F L 96.9 F L Temperature Source Temporal Pulse Rate 77 77 Respiratory Rate 16 16 Respiratory Pattern Normal Blood Pressure 144/71 H 144/71 H Blood Pressure Mean 95 Blood Pressure Source Monitor Blood Pressure Position Semi-Fowlers Blood Pressure Location Right Arm Pulse Ox 100 100 Oxygen Delivery Method Room Air Weight Weight: 80.3 kg Body Mass Index (BMI) 26.1 Results Lab / Micro Data 11/26/23 16:17 11/26/23 16:17
[2023-12-05] MEDS: Cefazolin 2 GM in 0.9% Normal Saline (100mL Bag) 100 ML IV (07:28)
--- NOTE | 2023-12-05 07:30 | PROST_PTH ---
PATIENT: UMA WILKES LOC: [facility] U#:[id number] AGE/SX: 63/M [place] [facility] [place]12/05/[address]: Dr. Luis Valladares MD : 1960 BED: 1 DIS: 12/06/2023 SPEC #: [id number] RECD: 12/05/23 12:34 STATUS: NIGEL VIKASH #: [id number] CHLOE: 12/05/23 07:[address]: Luis Valladares DEPT: SURGICAL PATHOLOGY RECD BY: Erlinda Hernandez ENTERED: 12/05/23 14:08 SP TYPE: PROSTATE OTHR DR: Gonzales Mcintyre, NEREYDAC Tissues: A - Lymph node of pelvis, NOS B - Lymph node of pelvis, NOS C - Prostate, NOS Procedures: Surgery Specimen Level V Surgery Specimen Level HEADER OPERATION: Laparoscopic robotic radical prostatectomy, bilateral lymphadenectomy PRE-OP DIAGNOSIS: Prostate cancer TISSUE SUBMITTED: A- Right pelvic lymph node, B- Left pelvic lymph node, C- Prostate MICROSCOPIC DIAGNOSIS A. Right pelvic lymph node, regional resection: Four out of four lymph nodes, negative for metastatic carcinoma. B. Left pelvic lymph node, regional resection: A piece of fibroadipose tissue. See comment. C. Prostate, radical prostatectomy: Prostatic adenocarcinoma. See cancer summary in the comment section. 12/09/2023 COMMENT B. Lymph node tissue is not identified. C. PROSTATE CANCER (RADICAL) SUMMARY: Procedure: Radical Prostatectomy Prostate Size: Weight: 33.9gm Size: 4.0cm transversely, 2.5cm interior-posteriorly, 2.5cm craniocaudally Histologic Type: Adenocarcinoma Histologic Grade: Othello Grade 4+5=9 Percent of Pattern 4: About 50% Percent of Pattern 5: 30% Tertiary pattern- Curt grade 3 is also noted ~ 20% Intraductal Carcinoma: Present Tumor Quantitation: Estimated percentage of prostate involved by tumor: ~80%. Tumor involves both right and left lobes, apical, mid and basal portion of prostate. Dominant nodule: Left prostate measuring 2.5 x 2.5 x 2.0cm The tumor in the right lobe measures approximately 1 x 1 x 0.2 cm, measured microscopically. Extraprostatic Extension: Present, focal Location of extraprostatic extension: Left lateral Urinary Bladder Neck Invasion: not identified. Seminal Vesicle Invasion: Present, both right and left Lymphvascular Invasion: Not identified Perineural Invasion: Present, frequent Margins: Margins involved by invasive carcinoma The largest focus of invasive carcinoma is present at the apical margin and measures 1.3 x 0.9cm (measured microscopically) Focality: Multifocal Location of positive margins: apical, basal portion of prostate, left lateral prostate, and left seminal vesicle. Margins positive in the area of extraprostatic excision: Not identified Othello pattern at positive margins: 3+4 =7 Regional Lymph Nodes: Number of lymph nodes involved by carcinoma: 0 Total number of lymph nodes examined: 4 Treatment Effect: No known presurgical therapy Additional Pathologic Findings: Focal high-grade prostatic intraepithelial neoplasia (HGPIN), chronic inflammation, and basal cell hyperplasia Ancillary studies: Not performed PATHOLOGIC STAGE: pT3b pN0 pMx The above summary is in compliance with [employer] [place] [employer] (CAP) Cancer Protocols Checklist and [place] Joint Committee on Cancer (AJCC), Staging Manual, 8th Ed. Please make reference to previous specimen [id number] right prostate, apex, mid, and left prostate, apex, mid and base with diagnosis of adenocarcinoma. Case has been reviewed in consultation with Dr. Lowry who concurs with the above diagnosis. IDC:AM MICROSCOPIC DESCRIPTION Slides are reviewed. GROSS DESCRIPTION A. Received in fixative is one container labeled with the patient's name and designated Right pelvic lymph node. The specimen consists of multiple pieces of yellow adipose tissue containing nodules measuring in aggregate 2.5 x 2.5 x 0.3cm. The entire specimen is submitted in one cassette. B. Received in fixative is one container labeled with the patient's name and designated Left pelvic lymph node. The specimen consists of a piece of adipose tissue measuring 1.0 x 1.0 x 0.1cm. No obvious lymph node is noted. The entire specimen is submitted in one cassette. C. Received in fixative is one container labeled with the patient's name and designated prostate. The specimen consists of a radical prostatectomy specimen consisting of prostate and bilateral seminal vesicles and vas deferens. The specimen weighs 33.9 gm. The prostate measures 4.5 cm transversely, 2.5 cm anterior-posteriorly and 2.5 cm craniocaudally. The right seminal vesicle measures 3.0 x 1.0 x 1.0 cm and right vas deferens measures 4.0 cm in length and 0.7 cm in diameter. The left seminal vesicle measures 2.5 x 1.5 x 1.0 cm and the left vas deferens measures 4.0 cm in length and 0.5 cm in diameter. The prostate is inked as follows: anterior surface - yellow, posterior surface - black, right lateral surface - blue, left lateral surface - green. The bilateral seminal vesicles and vas deferens are inked as follows: Posterior surface bilateral seminal vesicle and vas deferens - black, anterior surface right seminal vesicle and vas deferens - blue and anterior left seminal vesicle and vas deferens - green. Section of the prostate reveal a grullon-yellowish nodule occupying most of the left lobe measuring 2.5 x 2.0 x 2.5cm. Clock Repair Technician sections are submitted in 21 cassettes as follows: 1 - right seminal vesicle and vas deferens, 2 - left seminal vesicle and vas deferens, 3 - apical (urethral) margin, enface, 4 &5- bladder neck and basal portion of prostate margin, enface, 6-11 - apical portion prostate, 12-15- middle portion prostate, 16-21- basal portion prostate. More than 95% of the prostate is submitted. / MAIK: 12/08/2023 TC:0 CPT: [id number]
[2023-12-05] MEDS: Bupivacaine Mpf 0.5% 30 ML VIAL (10:44)
--- NOTE | 2023-12-05 10:54 | DCINST_ITS ---
Discharge Instructions Diet Discharge Diet: No restrictions Activity Discharge Activity: Return to Normal Activity and May Not Drive (while taking narcotic pain medications.) Additional Activity Instructions:: no lifting Dressing / Incision Call your doctor if you observe: Fever of 101 or Higher Catheter: Campa to leg bag and [place]a to large bag Drain: [place] Follow Up Care Please Follow Up With: Luis Valladares MD When: Call [phone] for an appointment, 2 weeks to remove campa Test Results: Test results from this visit will be discussed in further detail at your follow- up appointment, if applicable. Discharge Plan Admission Primary Reason for Your Visit: robotic radical prostatectomy Attending Provider: Luis Valladares Primary Care Provider: Gonzales Mcintyre Instructions Print Language: Bahraini Discharge Orders/Prescriptions Prescriptions: New ciprofloxacin HCl [Cipro] 500 mg tablet 500 mg PO BID Qty: 20 0RF docusate sodium [Colace] 100 mg capsule 100 mg PO BID Qty: 20 0RF oxycodone 5 mg tablet 5 mg PO Q6H PRN (Reason: pain) 3 Days Qty: 14 0RF Continued (DME) FreeStyle Lite Strips Strip See Rx Instructions .ROUTE .MEDSUPPLY Qty: 100 3RF Rx Instructions: check blood glucose daily for type 2 DM (DME) blood-glucose meter [FreeStyle Lite Meter] Kit See Rx Instructions .ROUTE .MEDSUPPLY Qty: 1 0RF Rx Instructions: As directed, check blood glucose daily for type 2 DM (DME) lancets [FreeStyle Lancets] 28 gauge misc See Rx Instructions .ROUTE .MEDSUPPLY Qty: 200 3RF Rx Instructions: check blood glucose daily for type 2 DM hydroxychloroquine 200 mg tablet 400 mg PO DAILY amlodipine 5 mg tablet 5 mg PO DAILY Qty: 90 3RF atorvastatin [Lipitor] 80 mg tablet 80 mg PO DAILY Qty: 90 3RF Farxiga 10 mg tablet 10 mg PO QAM Qty: 90 3RF losartan 25 mg tablet 37.5 mg PO DAILY 90 Days Qty: 135 3RF Mounjaro 7.5 mg/0.5 mL pen injector 7.5 mg subcut QWEEK (DME) blood pressure monitor [Blood Pressure Kit] Kit See Rx Instructions .ROUTE .MEDSUPPLY Qty: 1 0RF Rx Instructions: Check blood pressure daily for hypertension I10 fenofibrate 54 mg tablet 54 mg PO DAILY Qty: 90 3RF metoprolol tartrate 25 mg tablet 12.5 mg PO BID Qty: 30 0RF Held clopidogrel [Plavix] 75 mg tablet 75 mg PO DAILY Qty: 30 5RF Hold Instructions: Resume on 12/19/23. aspirin 81 mg Tablet,Chewable 81 mg PO BREAKFAST 30 Days Qty: 30 0RF Hold Instructions: Resume on 12/19/23. Referrals / Follow Up: Luis Valladares MD [Med Staff - Active Staff] - Gonzales Mcintyre PERINATAL BREASTFEEDING ASSISTANT-C [Primary Care Provider] - Disposition Disposition (needs filled in before D/C Order can be placed): Home, Self Care
--- NOTE | 2023-12-05 10:55 | OP.PCM_ITS ---
Report of Operation Date of Procedure: 12/05/23 Pre-Operative Diagnosis: Prostate cancer Post-Operative Diagnosis: Prostate cancer Surgery/Procedure Performed:: Laparoscopic robotic assisted radical prostatectomy, Retzius approach, total pelvic lymph node dissection Description of Surgical Findings:: Patient was identified in the preoperative area and marked and seen we talked about surgery remove his prostate was involved and potential outcomes. We talked about the potential to lose erections and also have bladder control problems after surgery including stress incontinence. Patient's questions were addressed and he signed consent form and we will plan to proceed today with a robotic radical prostatectomy Retzius. Approach with bilateral lymph node dissection. Patient is taken back to the operating room after smooth induction of anesthesia he was placed upon the table make sure all his pressure points were padded. We used the pink foam and pink foam secure system to secure him on the table he was placed in dorsolithotomy position with the legs in stirrups making sure that all his pressure points were padded we did a tilt test to make sure he did not slide in the bed. And the patient was placed flat in the bed his penis and testicles and pelvic area were prepped and in the abdomen was also prepped with chlorhexidine prep. Patient's abdomen and penis and testicles were then draped in usual sterile fashion. I then identified the umbilicus infiltrated right above the umbilicus and a small incision, probed the wound with a hemostat identified the fascia and then used a Veress needle to advance through the fasci a into the peritoneal cavity. We then filled the peritoneal cavity CO2 gas and obtained a pneumoperitoneum. I then placed my first trocar into the abdomen this was to be the camera trocar. After I placed the camera trocar then the other trocars were placed under direct visualization placed a right arm trocar to left arm trocars and air seal port and a suction trocar for my therapist's assistant. We then placed the patient in full Trendelenburg and the robot was then docked. Then using a 30 degree lens we placed the instruments into the abdomen under direct visualization and started by first mobilizing the sigmoid colon. The sigmoid colon and the white line of Toldt was incised and mobilized off the lateral sidewall to allow full retraction of the colon from the pelvis. Once this was fully accomplished then I was able to get into the posterior space behind the bladder we then identified the vas deferens on the right side. I then traced the right vas deferens all the way down to the prostate we incised the peritoneum over the prostate identified the right vas deferens and then the left vas deferens. Identified the several vesicles below this. I then went below this and identified Denonvilliers' fascia and incised the Denonvilliers' fascia in the midline and then created a space between the rectum and the prostate I then dissected all the way to the apex. We then flipped the camera 30 degrees up to get a bit better visualization of the prostate. I then very gently dissected the Denonvilliers' fascia off the posterior aspect of the prostate all the way to the apex of sliding the tissue off the prostate to get to the semipseudocapsule on the prostate with unable to get to the lateral edge of the prostate and then to release neurovascular bundles on both sides I then started between the apex of the prostate to release neurovascular bundle to peel the neurovascular 1 off the prostate making sure I stayed around the apex without violating the prostate capsule I then worked my way back toward the base of the prostate releasing the neurovascular under posteriorly back to the base of the prostate. This was done on the right side we did the same procedure in the left side releasing the neurovascular bundle posteriorly all the way back to the base of the prostate. I then pulled out and look at the vas deferens some vesicles I transected the vas deferens and then dissected the vas deferens and some vesicles en bloc of the lateral sidewall was using minimal electrocautery and sharp dissection to free up the vas deferens and vesicle I then was able to laterally retract the right vas deferens medially and then started working to get the space between the edge of the prostate and the pseudocapsule identified the pseudocapsule and then coming to the pedicle the prostate with bipolar coagulation on the right side and then following the capsule all the way toward the apex and then following up along the prostate capsule for the apex releasing the neurovascular bundle off the right side working on my way anterior. We then pulled out the pelvis prostate area again and then dissected out the left seminal vesicle and left vas deferens and then pulled these laterally and then again I went to the pedicle of the prostate and then was able to identify the neurovascular bundle that was priorly freed up and then freed up the Norvasc of 10 and then worked my way on the left side the prostate all the way to the apex freeing up the tissue off the left pseudocapsule the prostate all the way anteriorly. Then I worked toward the anterior part of the prostate freeing up the prostate is much as possible anteriorly toward the apex in the back to the bladder neck then at this point I could identify the bladder neck more clearly since the prostate then. Freed up laterally and medially and inferiorly I then very carefully started dissecting through the muscular attachments between the bladder neck and the prostate until I encountered the urethra and the Cameron cath eter at this point Cameron catheter was deflated and pulled back and then I continued to dissect off the bladder neck from the prostate working all the way up to the base of the prostate and then anterior the prostate. Then the Cameron catheter was pulled back further and then I worked my way up to the apex of the prostate and then circumferentially dissected all the way up to the apex of prostate making sure to stay outside the capsule and identify the sphincter complex I then incised the urethra right in front of the sphincter and dissected off the prostate off the sphincter complex and then the prostate was free and was placed in Endo Catch bag. Prior to this also in the bladder neck place a stay suture 3-0 Vicryl to locate the bladder neck. Then we proceeded with our anastomosis between the urethra and the bladder neck this was done using a 2 oh STRATAFIX stitch to bring together the bladder neck and the urethra started at the 12 o'clock position and worked my way to the 6 o'clock position on the right side and the left side used a dyed and undyed suture to make sure to keep both sutures aligned up and then at the end I was able to bring down the bladder neck to the urethra and then we took out the catheter that was initially put in to the abdomen for the case and we put in the 18 [place] tip catheter into the bladder helped it as it made to the turn to the bladder and then we put 10 cc in the balloon we irrigated the bladder and made sure that the anastomosis was watertight. We then inspected for bleeding and there was no bleeding in the base of the where the prostate was removed. I then pulled out of the pelvis and proceeded with a total bilateral pelvic lymph node dissection, I flipped the camera 30 degrees down and then I made a window in the peritoneum and dissected out the pelvic lymph nodes on the right pelvic sidewall off the external and in iliac artery and vein. These lymph nodes are and handed off the specimen. The pelvic lymph node dissection was then performed both side. The right pelvic lymph nodes the nodes that were taken on the right side extended from the right iliac artery lateral pelvic sidewall up to the junction of the artery and the lymph nodes and down to the obturator nerve and then also below the electrical logging operator nerve all the lymph nodes were removed during to remove those lymph nodes we used clips and electrocautery to control small blood vessels and also the control lymphatic. I then went to the left side and again did an extensive lymph node dissection starting of the left iliac artery extending the left iliac vein on the lateral sidewall down to the obturator nerve and the left side beyond the electrical logging operator nerve down further behind it cleaning out all the lymphatic tissue all this tissue was sent off as a specimen we use clips and electrocautery during the dissection. At the end we cleaned out all the lymphatic tissue on the right pelvic wall and all the lymphatic tissue in the left pelvic wall. I then went to the left side and opened up the peritoneal wound on the left side and then dissected out the lymph node tissue from the left iliac artery and vein. We used clips and hemostasis to obtain hemostasis and remove these lymph nodes. At this point the robot was undocked the prostate was extracted through the umbilical incision we then closed the end Vicryl incision with a 0 Vicryl interrupted [id number] stitches we inspected the abdomen again removed all the ports under visualization there is no sign of injury or bleeding from either site. Desufflated the abdomen we then closed and sutured all the incision sites with subcuticular stitch using 4-0 Monocryl dressings and Band-Aids were placed on all the incisions patient's anesthetic is currently being reversed and to be taken back to the PACU in stable condition the catheter was irrigated out completely and was draining with clear yellow urine. The role of the first aid officer JEN,Rich Kunz assisted with myself during the entire procedure, the DOBIE MAN assisted by passing instruments through the air seal port, passing suture, needles, sponges during the surgery. The RFA also assisted with providing some suction using the suction irrigation and some irrigation during the surgery. Also the therapist's assistant provided some traction minorly during the dissection of the prostate and the seminal vesicles. The RFA also helped me extract the prostate at the end of the case and helped close the fascia, and the therapist's assistant also helped close the skin incisions with subcuticular stitches. The therapist's assistant was monitored closely and under my direct supervision the entire case. Surgeon: Luis Valladares Drains: lokesh Estimated Blood Loss (mL): 50 Admit VTE Documentation VTE Present on Admission: No VTE Mechan Device Prophylaxis: SCD's VTE Pharm Prophylaxis ordered?: No
[2023-12-05] MEDS: Ketorolac 15 MG/ML Vial IV ×2 (11:33→18:12)
[2023-12-05] MEDS: 0.9% Normal Saline (1000mL) 1,000 ML 125 ML IV ×2 (11:33→20:59)
--- NOTE | 2023-12-05 11:45 | PCM.POST.ANE ---
Anesthesia: Postop Eval I Current Vital Signs Temperature: 97.4 F Pulse Rate: 97 Blood Pressure: 126/55 Respiratory Rate: 16 Pulse Ox: 92 Oxygen Delivery Method: Room Air Assessment Airway patent: Yes Spontaneous unlabored respirations: Yes Mental status: Awake and Calm nausea: No Vomiting: No Anesthesia Complication: No Fluid Hydration Crystalloid volume administer (ml): 1,800 Total IV fluid infused: 1,800 Progress Note Anesthesia document: Postop Eval 1 completed: Yes
--- NOTE | 2023-12-05 12:12 | POSTOPAN2_ITS ---
Anesthesia Postop Eval I Sum Postop Eval Completion status Anesthesia document: Postop Eval 1 completed: Yes Anesthesia Postop Eval I Summary Anesthesia Postop Eval I Summary: Anesthesia Postop Eval I: Assessment Summary Airway patent Yes 12/05/23 11:46 [email or web address] Spontaneous unlabored Yes 12/05/23 11:46 DELIVERER [email or web address] respirations Mental status Awake,Calm 12/05/23 11:46 [email or web address] [email or web address].[email or web address] nausea No 12/05/23 11:46 DELIVERER [email or web address] Vomiting No 12/05/23 11:46 DELIVERER [email or web address] Anesthesia Postop Eval I: Fluid Summary Crystalloid volume administer 1,800 12/05/23 11:46 [email or web address] (ml) Colloids volume administered ( ml) Blood Product volume administered (ml) Total IV fluid infused 1,800 12/05/23 11:46 DELIVERER [email or web address] Anesthesia Postop Eval I: Summary Notes Anesthesia Complication No 12/05/23 11:46 DELIVERER [email or web address] Anesthesia Complication Comment: Post-operative progress note Anesthesia: Postop Eval II Evaluation Mental status: Awake Pain Level: 0 nausea: No Vomiting: No
--- NOTE | 2023-12-05 12:12 | PCM.POSTANE2 ---
Anesthesia Postop Eval I Sum Postop Eval Completion status Anesthesia document: Postop Eval 1 completed: Yes Anesthesia Postop Eval I Summary Anesthesia Postop Eval I Summary: Anesthesia Postop Eval I: Assessment Summary Airway patent Yes 12/05/23 11:46 [email or web address] Spontaneous unlabored Yes 12/05/23 11:46 [email or web address] respirations Mental status Awake,Calm 12/05/23 11:46 [email or web address] nausea No 12/05/23 11:46 [email or web address] Vomiting No 12/05/23 11:46 [email or web address] Anesthesia Postop Eval I: Fluid Summary Crystalloid volume administer 1,800 12/05/23 11:46 [email or web address] (ml) Colloids volume administered ( ml) Blood Product volume administered (ml) Total IV fluid infused 1,800 12/05/23 11:46 [email or web address] Anesthesia Postop Eval I: Summary Notes Anesthesia Complication No 12/05/23 11:46 [email or web address] Anesthesia Complication Comment: Post-operative progress note Anesthesia: Postop Eval II Evaluation Mental status: Awake Pain Level: 0 nausea: No Vomiting: No
--- NOTE | 2023-12-05 15:04 | CHAPLAIN ---
Type of Pastoral Visit _x__ Initial Visit ___ Follow-up Visit ___ On-call Visit ___ General Patient Visit ___ Spiritual Assessment ___ Family Conference ___ Bereavement ___ Rapid Response ___ Code Blue ___ Other (describe below) Pastoral Care Referral From _x__ Patient ___ Family ___ Nurse ___ Physician ___ Job Captain ___ Gin Operator ___ Other (describe below) Sacrament/Intervention ___ Active listening ___ Anointing ___ Restorationist ___ Bereavement ___ Communion ___ Stefany exploration ___ ___ Life review _x__ Prayer ___ Reconciliation ___ Sacrament of Sick ___ Supportive presence ___ Wedding ___ Other (describe below) Pastoral Comments patient was resting after his surgery today; spouse is with him in the room; pt awakens easily but admits to being tired and hard to keep awake; pt reports feeling good with lots of prayers going up for me; pt welcomes the support of presence and prayer
[2023-12-05] MEDS: Docusate Sodium 100 MG Capsule 200 MG PO (21:00)
[2023-12-05] MEDS: Ciprofloxacin 400 MG/200 ML BAG 200 MG IV (21:00)
[2023-12-05] MEDS: Atorvastatin Calcium 80 MG Tablet PO (21:01)
[2023-12-05] MEDS: Metoprolol Tartrate 25 MG Tablet 12.5 MG PO (21:01)
[2023-12-05] MEDS: Acetaminophen 325 MG Tablet 650 MG PO (21:06)
[2023-12-06 00:38] VITALS: BP 136/68; PULSE 83; RESP 16; TEMP 36.6; O2SAT 94
[2023-12-06] MEDS: Ketorolac 15 MG/ML Vial IV ×3 (00:44→11:48)
[2023-12-06 01:32] LABS: Bedside Glucose 121 mg/dL (74-106)
[2023-12-06 04:37] VITALS: BP 136/63; PULSE 77; RESP 16; TEMP 36.6; O2SAT 95
[2023-12-06] MEDS: 0.9% Normal Saline (1000mL) 1,000 ML 125 ML IV (05:35)
[2023-12-06 08:38] VITALS: BP 141/59; PULSE 89; RESP 18; TEMP 36.9; O2SAT 95
--- NOTE | 2023-12-06 09:31 | PCM.PN.GU ---
Subjective Subjective Patient is doing well after robotic radical prostatectomy, he can go home today with a Cameron catheter to leg bag and large bag. Objective Data Objective Data Vital Signs: Vital Signs Temp Pulse Resp BP Pulse Ox O2 Del Method O2 Flow Rate 97.9 F 77 16 136/63 H 95 Room Air 2 12/06/23 04:37 12/06/23 04:37 12/06/23 04:37 12/06/23 04:37 12/06/23 04:37 12/06/23 04:37 12/05/23 14:46 Oxygen Flow Rate (L/min) 2 Oxygen Delivery Method Room Air Weight: 80.3 kg Body Mass Index (BMI) 26.1 Intake & Output: Intake and Output for Last 24 Hours 12/04/23 12/05/23 12/06/23 23:59 23:59 23:59 Intake Total 2060 / 2260 1400 / 1400 Output Total 1950 / 2350 750 / 750 Balance 110 / -90 650 / 650 Lab / Micro Data 11/26/23 16:17 11/26/23 16:17 Labs: Laboratory Results - last 24 hr 12/06/23 00:46: POC Glucose 121 H
[2023-12-06 10:03] VITALS: PULSE 89
[2023-12-06] MEDS: Fenofibrate 48 MG Tablet PO (10:03)
[2023-12-06] MEDS: Hydroxychloroquine 200 MG Tablet 400 MG PO (10:03)
[2023-12-06] MEDS: amLODIPine 5 MG Tablet PO (10:03)
[2023-12-06] MEDS: Empagliflozin 25 MG Tablet PO (10:03)
[2023-12-06] MEDS: Metoprolol Tartrate 25 MG Tablet 12.5 MG PO (10:03)
[2023-12-06] MEDS: Docusate Sodium 100 MG Capsule 200 MG PO (10:04)
[2023-12-06] MEDS: Losartan Potassium 25 MG Tablet 37.5 MG PO (10:05)
[2023-12-06] MEDS: Ciprofloxacin 400 MG/200 ML BAG 200 MG IV (10:11)
[2023-12-08 07:59] LABS: Bedside Glucose 110 mg/dL (74-106)
== END 2023-12-06 14:25 | disposition home or self-care (01) ==
LOC: SDC 12:06 → MS3 12:06
PROVIDERS: Anesthesiology; Admitting Provider Urology; PCP Nurse Practitioner Family; Referring Provider Urology; Visit Provider Urology
PROC: 0VT04ZZ Resection of Prostate, Percutaneous Endoscopic Approach (ICD-10-PCS; CPT 55866; principal; 2023-12-05 07:10)
DX: C61 Malignant neoplasm of prostate (principal); E11.9 Type 2 diabetes mellitus without complications; E78.00 Pure hypercholesterolemia, unspecified; Z79.85 Long-term (current) use of injectable non-insulin antidiabetic drugs; I10 Essential (primary) hypertension; Z87.891 Personal history of nicotine dependence; Z79.02 Long term (current) use of antithrombotics/antiplatelets; Z79.84 Long term (current) use of oral hypoglycemic drugs; Z79.899 Other long term (current) drug therapy
CPT/HCPCS: 55866; 00865; 36415; 80048; 82962; 83036; 85027; 88307; 88309; 93005; 94668; 96361; 96365; 96366; 96375; 96376; 99221; J7030; J7120; G0378; J0744; J2405

== ENCOUNTER 2024-01-12 18:10 | Emergency (ER) | payer OTHER, SELFPAY ==
[2024-01-12 18:11] VITALS: BP 152/65; PULSE 83; RESP 18; TEMP 36.5; O2SAT 96; BMI 27.8
--- NOTE | 2024-01-12 18:47 | EX.ED.GENINJ ---
HPI History of Present Illness Chief Complaint: Chest Other Informant: patient Onset/Context/Timing Onset: Today Mechanism/Context: Fall Quality of Pain: Stabbing Location: Left lower chest Worsened by: Movement, deep breathing Relieved by: Nothing Associated Symptoms Associated Symptoms: Negative for Parasthesias, Weakness, Loss of function, Inability to ambulate, Loss of consciousness or Amnesia Narrative Narrative: Patient presents with left lower rib pain that began after a fall today. Patient states he tripped and fell onto his left side. Patient denies any head injury or loss of consciousness. Patient states his pain is mainly over his left lower ribs. Patient states it is stabbing. Patient states it is worse with movement and deep breathing. Patient states nothing helps the pain. Patient denies any shortness of breath. [facility] Medical History Wears glasses Diabetes Blood disorder Fatty liver High cholesterol Injury of head and neck Dietary restriction History of GI bleed Former smoker Aneurysm History of echocardiogram Cardiology follow-up encounter Hx of colonic polyp Leukocytosis Blood in stool Cough Screening PSA (prostate specific antigen) Osteoarthritis Rheumatoid arthritis Groin abscess Back pain History of seizures as a child Right trigeminal neuralgia Lipoma of forehead Mass of face [place] Barrett syndrome (geniculate herpes zoster) Rheumatoid arthritis Nonrheumatic mitral (valve) insufficiency History of TIA (transient ischemic attack) Essential (primary) hypertension Type II diabetes mellitus Stroke Pneumonia Hyperlipidemia Home Medications ?Medication ?Instructions ?Recorded ?Last Taken ?Type blood sugar diagnostic (FreeStyle #100 ea 09/09/18 Unknown Rx Lite Strips) blood-glucose meter (FreeStyle #1 ea 09/09/18 Unknown Rx Lite Meter kit) lancets 28 gauge (FreeStyle #200 ea 09/09/18 Unknown Rx Lancets) hydroxychloroquine 200 mg tablet 400 mg PO DAILY 10/23/21 12/04/23 History aspirin 81 mg chewable tablet 81 mg PO BREAKFAST 30 days #30 tabs 06/04/22 11/23/23 Rx amlodipine 5 mg tablet 5 mg PO DAILY #90 tabs 06/12/22 12/05/23 05:30 Rx atorvastatin 80 mg tablet (Lipitor) 80 mg PO DAILY cholesterol #90 tabs 06/12/22 12/04/23 Rx dapagliflozin propanediol 10 mg 10 mg PO QAM #90 tabs 06/12/22 12/04/23 Rx tablet (Farxiga) losartan 25 mg tablet 37.5 mg (1.5 x 25 mg) PO DAILY 06/12/22 12/05/23 Rx blood pressure 3 months #135 tabs blood pressure monitor (Blood #1 ea 07/02/22 Unknown Rx Pressure Kit) clopidogrel 75 mg tablet (Plavix) 75 mg PO DAILY #30 tabs 07/09/22 11/23/23 Rx fenofibrate 54 mg tablet 54 mg PO DAILY #90 tabs 08/20/22 06/11/23 Rx tirzepatide 7.5 mg/0.5 mL 7.5 mg subcut QWEEK 05/26/23 11/23/23 History subcutaneous pen injector (Mounjaro) metoprolol tartrate 25 mg tablet 12.5 mg (1/2 x 25 mg) PO BID #30 10/30/23 12/05/23 Rx tabs ciprofloxacin HCl 500 mg tablet 500 mg PO BID #20 tabs 12/05/23 Unknown Rx (Cipro) docusate sodium 100 mg capsule 100 mg PO BID #20 caps 12/05/23 Unknown Rx (Colace) oxycodone 5 mg tablet 5 mg PO Q6H PRN pain 3 days #14 12/05/23 Unknown Rx tabs hydrocodone-acetaminophen 5-325mg 1 tab PO Q6H PRN PRN Pain 3 days 01/12/24 Unknown Rx 5mg-325mg #10 TABLETS Allergy/AdvReac Type Severity Reaction Status Date / Time james seed Allergy Severe Anaphylaxis Verified 01/12/24 18:10 pneumococcal vaccine (From Allergy Intermediate Rash & Verified 01/12/24 18:10 Pneumovax 23) Swelling Family History Sister Diabetes Hypertension High cholesterol blood clots Cardiovascular disease Brother Myocardial infarction High cholesterol Heart disease TIA (transient ischemic attack) Cardiovascular disease Mother Myocardial infarction Hypertension Arthritis History of blood transfusion Heart disease Kidney disease Cardiovascular disease Father High cholesterol CVA (cerebral vascular accident) blood clots Cardiovascular disease Grandmother CVA (cerebral vascular accident) Surgical History Hx of colonoscopy History of excision of lesion History of tonsillectomy History of lymphoid or hematologic neoplasm History of appendectomy History of splenectomy Social History housing: house current occupational status: employed 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 @ [employer] Smoking Status: Former smoker Tobacco: How many years used: Electronic Cigarette Use: not used how long ago did patient quit smoking: quit 1994 second hand exposure: Yes (Smoked in the home ) alcohol intake: former year quit: 1994 substance use type: does not use what type of physical activity do you participate in: walking frequency: daily mellisa/christianity: Restorationism seatbelt use: always additional social history: does take aspirin does take ibuprofen ROS ROS ED Constitutional Constitutional ED: Denies chills or fever(s) Eyes Eyes: Denies blurry vision or change in vision ENT ENT ED: Denies rhinorrhea or sore throat Cardiovascular Cardiovascular: Denies chest pain or palpitations Respiratory/Chest Respiratory/Chest: Denies cough or dyspnea Gastrointestinal Gastrointestinal: Denies nausea or vomiting Musculoskeletal Musculoskeletal: Denies back pain or neck pain Integumentary Denies abscess or rash Neurologic Neurologic: Denies headache(s) or weakness Allergic/Immunologic Allergic/Immunologic ED: Denies mouth swelling or urticaria EXAM Physical Exam Const Vital Signs: 01/12/24 18:11 01/12/24 18:49 Temperature 97.7 F L Temperature Source Temporal Pulse Rate 83 Respiratory Rate 18 Respiratory Effort Normal Non-Labored Blood Pressure 152/65 H Blood Pressure Mean 94 Pulse Ox 96 Oxygen Delivery Method Room Air Positive well nourished and well developed General Appearance ED: well developed and NAD HEENT atraumatic Neck full ROM Chest Wall Chest Narrative: There is tenderness over the lateral aspect of the left fourth, fifth, sixth, and seventh rib areas. There is no bony crepitance or step-off. There is no subcutaneous emphysema palpated. Resp normal respiratory effort and clear to auscultation bilaterally Cardio regular rhythm Rate: regular rate GI non-tender and non-distended Palpation: soft Neuro oriented x3, CN's II-XII intact bilaterally, moves all extremities, no focal motor deficits and no sensory deficits noted Liyah Coma Scale: document GCS findings Spontaneous Obeys Commands Oriented 15 Sensorium / Orientation: alert Motor Exam: strength 5/5 throughout Psych mental status grossly normal and thought process normal MDM MDM MDM Narrative Medical decision making narrative: Differential diagnosis includes rib fracture, chest wall contusion, pneumothorax, and muscle strain. X-rays of the left ribs will be obtained to assess for fracture and pneumothorax. Radiography Diagnostic Testing: Clinical Impression(s) from Imaging Studies Ribs w/Chest X-Ray 01/12/24 18:50 IMPRESSION: RIBS: Normal x-ray examination of the ribs. CHEST: No acute cardiopulmonary pathology. Electronically Signed: Alex Pruitt MD at 19:48 EST Reading Location ID and State: [facility] / [place] Tel , Service support , X-rays of the left ribs were obtained. There are 5 views. On my independent interpretation, there is no acute fracture. There is no pneumothorax. There is no acute cardiopulmonary process. Radiologist also interpreted the x-rays and agrees. Treatment and Re-Evaluation Narrative: The patient was given a dose of [place] here. Patient was given a prescription for [place]. Patient was instructed to take 10-15 deep breaths every hour while awake to prevent atelectasis and pneumonia. Patient was instructed to follow-up with his primary care physician in 5 to 7 days. Patient understood and was agreeable with the plan. All questions were answered. Discharge Plan Triage Chief Complaint: Chest Other ED Provider: Virgilio Luna Dx/Rx/DC Orders Clinical Impression: Chest wall contusion, Fall Instructions: ED Chest Wall Contusion Prescriptions: New hydrocodone-acetaminophen 5-325 mg tablet 1 tab PO Q6H PRN PRN (Reason: Pain) 3 Days Qty: 10 0RF No Action (DME) FreeStyle Lite Strips Strip See Rx Instructions .ROUTE .MEDSUPPLY Qty: 100 3RF Rx Instructions: check blood glucose daily for type 2 DM (DME) blood-glucose meter [FreeStyle Lite Meter] Kit See Rx Instructions .ROUTE .MEDSUPPLY Qty: 1 0RF Rx Instructions: As directed, check blood glucose daily for type 2 DM (DME) lancets [FreeStyle Lancets] 28 gauge misc See Rx Instructions .ROUTE .MEDSUPPLY Qty: 200 3RF Rx Instructions: check blood glucose daily for type 2 DM hydroxychloroquine 200 mg tablet 400 mg PO DAILY clopidogrel [Plavix] 75 mg tablet 75 mg PO DAILY Qty: 30 5RF amlodipine 5 mg tablet 5 mg PO DAILY Qty: 90 3RF atorvastatin [Lipitor] 80 mg tablet 80 mg PO DAILY Qty: 90 3RF Farxiga 10 mg tablet 10 mg PO QAM Qty: 90 3RF losartan 25 mg tablet 37.5 mg PO DAILY 90 Days Qty: 135 3RF Mounjaro 7.5 mg/0.5 mL pen injector 7.5 mg subcut QWEEK aspirin 81 mg Tablet,Chewable 81 mg PO BREAKFAST 30 Days Qty: 30 0RF ciprofloxacin HCl [Cipro] 500 mg tablet 500 mg PO BID Qty: 20 0RF docusate sodium [Colace] 100 mg capsule 100 mg PO BID Qty: 20 0RF oxycodone 5 mg tablet 5 mg PO Q6H PRN (Reason: pain) 3 Days Qty: 14 0RF (DME) blood pressure monitor [Blood Pressure Kit] Kit See Rx Instructions .ROUTE .MEDSUPPLY Qty: 1 0RF Rx Instructions: Check blood pressure daily for hypertension I10 fenofibrate 54 mg tablet 54 mg PO DAILY Qty: 90 3RF metoprolol tartrate 25 mg tablet 12.5 mg PO BID Qty: 30 0RF Primary Care Provider: Gonzales Mcintyre Referrals: Gonzales Mcintyre, IMAGING SERVICES DIRECTOR-C [Primary Care Provider] - 5-7 Days Print Language: [place] Disposition Disposition: Home, Self Care
--- NOTE | 2024-01-12 18:50 | RAD_ITS ---
STUDY: X-RAY - UNILATERAL RIBS ( LEFT ) WITH CHEST REASON FOR EXAM: Male, 63 years old. Fall TECHNIQUE - RIBS: 4 view(s) of the ribs. TECHNIQUE - CHEST: PA COMPARISON: None. FINDINGS - RIBS: Normal visualized ribs without a demonstrated fracture. FINDINGS - CHEST: The lungs are clear and expanded. There is no demonstrated pleural abnormality. Normal size heart. Normal mediastinum and jamey. Normal visualized pulmonary arteries. Mildly calcified aortic arch and descending thoracic aorta. Surgical clips in the left chest wall and axilla Normal visualized thoracic spine. Normal visualized ribs, clavicles, and shoulders. There is no demonstrated abnormality of the visualized soft tissue structures of the upper abdomen. RAD/Ribs Uni Min 3V w/PA Chest IMPRESSION: RIBS: Normal x-ray examination of the ribs. CHEST: No acute cardiopulmonary pathology. Electronically Signed: Alex Pruitt MD at 19:48 EST ,
[2024-01-12] MEDS: HYDROcodone Bitartrate/Apap 5/325 Tablet PO (20:05)
== END 2024-01-12 20:43 | disposition home or self-care (01) ==
PROVIDERS: Emergency Provider Emergency Medicine; PCP Nurse Practitioner Family; Referring Provider Emergency Medicine; Visit Provider Emergency Medicine
DX: S20.20XA Contusion of thorax, unspecified, initial encounter (principal); M06.9 Rheumatoid arthritis, unspecified; E11.9 Type 2 diabetes mellitus without complications; E78.00 Pure hypercholesterolemia, unspecified; Z87.891 Personal history of nicotine dependence; I10 Essential (primary) hypertension; Z86.73 Personal history of transient ischemic attack (TIA), and cerebral infarction without residual deficits; Z79.899 Other long term (current) drug therapy; Z79.82 Long term (current) use of aspirin; Z79.84 Long term (current) use of oral hypoglycemic drugs; Z79.02 Long term (current) use of antithrombotics/antiplatelets; Z90.49 Acquired absence of other specified parts of digestive tract; W01.0XXA Fall on same level from slipping, tripping and stumbling without subsequent striking against object, initial encounter
CPT/HCPCS: 71101; 99282

== ENCOUNTER 2024-02-16 13:09 | Emergency (ER) | payer OTHER, SELFPAY ==
[2024-02-16 13:10] VITALS: BP 176/74; PULSE 76; RESP 16; TEMP 36.6; O2SAT 100
--- NOTE | 2024-02-16 14:06 | RAD_ITS ---
STUDY: X-RAY - PELVIS AND LEFT HIP REASON FOR EXAM: Male, 63 years old. Left hip pain following a fall. TECHNIQUE: 3 views of the pelvis and hip. COMPARISON: None. FINDINGS: There is a non-specific bowel gas pattern. Normal visualized soft tissue structures. There is narrowing with cortical sclerosis and osteophyte formation of the sacroiliac joint consistent with degenerative osteoarthritic changes. Normal bilateral superior and inferior pubic rami. Normal pubic symphysis. Normal bilateral ischial tuberosities. Normal visualized femoral head. Normal acetabulum. No fracture seen. RAD/HIP, UNI W/ Pelvis 2-3 Views IMPRESSION: No acute abnormality is present. Electronically Signed: Guerrero Torres MD at 15:05 EST ,
--- NOTE | 2024-02-16 14:07 | EDS_ITS ---
HPI History of Present Illness Chief Complaint: Lower Extremity Injury Detail of Chief Complaint: Injury to left hip Informant: patient Narrative Narrative: Patient presents to the emergency department complaint of injury to his left hip. Patient states that he was out in the yard and rolled a ball and lost his balance and fell backwards. Patient injured his left hip and had a hard time bearing weight afterwards but was able to hobble into the house. Having hard time bearing weight again today. brought him in today. Patient on Plavix. Denies striking his head or loss consciousness. Denies neck pain. Patient tells me he had prostate surgery to have his prostate removed 3-1/2 weeks ago. [facility] Medical History Wears glasses Diabetes Blood disorder Fatty liver High cholesterol Injury of head and neck Dietary restriction History of GI bleed Former smoker Aneurysm History of echocardiogram Cardiology follow-up encounter Hx of colonic polyp Leukocytosis Blood in stool Cough Screening PSA (prostate specific antigen) Osteoarthritis Rheumatoid arthritis Groin abscess Back pain History of seizures as a child Right trigeminal neuralgia Lipoma of forehead Mass of face [place] Barrett syndrome (geniculate herpes zoster) Rheumatoid arthritis Nonrheumatic mitral (valve) insufficiency History of TIA (transient ischemic attack) Essential (primary) hypertension Type II diabetes mellitus Stroke Pneumonia Hyperlipidemia Home Medications ?Medication ?Instructions ?Recorded ?Last Taken ?Type blood sugar diagnostic (FreeStyle #100 ea 09/09/18 Unknown Rx Lite Strips) blood-glucose meter (FreeStyle #1 ea 09/09/18 Unknown Rx Lite Meter kit) lancets 28 gauge (FreeStyle #200 ea 09/09/18 Unknown Rx Lancets) hydroxychloroquine 200 mg tablet 400 mg PO DAILY 10/23/21 12/04/23 History aspirin 81 mg chewable tablet 81 mg PO BREAKFAST 30 days #30 tabs 06/04/22 11/23/23 Rx amlodipine 5 mg tablet 5 mg PO DAILY #90 tabs 06/12/22 12/05/23 05:30 Rx atorvastatin 80 mg tablet (Lipitor) 80 mg PO DAILY cholesterol #90 tabs 06/12/22 12/04/23 Rx dapagliflozin propanediol 10 mg 10 mg PO QAM #90 tabs 06/12/22 12/04/23 Rx tablet (Farxiga) losartan 25 mg tablet 37.5 mg (1.5 x 25 mg) PO DAILY 06/12/22 12/05/23 Rx blood pressure 3 months #135 tabs blood pressure monitor (Blood #1 ea 07/02/22 Unknown Rx Pressure Kit) clopidogrel 75 mg tablet (Plavix) 75 mg PO DAILY #30 tabs 07/09/22 11/23/23 Rx fenofibrate 54 mg tablet 54 mg PO DAILY #90 tabs 08/20/22 06/11/23 Rx tirzepatide 7.5 mg/0.5 mL 7.5 mg subcut QWEEK 05/26/23 11/23/23 History subcutaneous pen injector (Mounjaro) metoprolol tartrate 25 mg tablet 12.5 mg (1/2 x 25 mg) PO BID #30 10/30/23 12/05/23 Rx tabs ciprofloxacin HCl 500 mg tablet 500 mg PO BID #20 tabs 12/05/23 Unknown Rx (Cipro) docusate sodium 100 mg capsule 100 mg PO BID #20 caps 12/05/23 Unknown Rx (Colace) oxycodone 5 mg tablet 5 mg PO Q6H PRN pain 3 days #14 12/05/23 Unknown Rx tabs hydrocodone-acetaminophen 5-325mg 1 tab PO Q6H PRN PRN Pain 3 days 01/12/24 Unknown Rx 5mg-325mg #10 TABLETS hydrocodone-acetaminophen 5-325mg 1 tab PO Q4H PRN PRN Pain 2 days 02/16/24 Unknown Rx 5mg-325mg #10 TABLETS Allergy/AdvReac Type Severity Reaction Status Date / Time james seed Allergy Severe Anaphylaxis Verified 02/16/24 13:12 pneumococcal vaccine (From Allergy Intermediate Rash & Verified 02/16/24 13:12 Pneumovax 23) Swelling Family History Sister Diabetes Hypertension High cholesterol blood clots Cardiovascular disease Brother Myocardial infarction High cholesterol Heart disease TIA (transient ischemic attack) Cardiovascular disease Mother Myocardial infarction Hypertension Arthritis History of blood transfusion Heart disease Kidney disease Cardiovascular disease Father High cholesterol CVA (cerebral vascular accident) blood clots Cardiovascular disease Grandmother CVA (cerebral vascular accident) Surgical History Hx of colonoscopy History of excision of lesion History of tonsillectomy History of lymphoid or hematologic neoplasm History of appendectomy History of splenectomy Social History housing: house current occupational status: employed 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 @ [employer] Smoking Status: Former smoker Tobacco: How many years used: 18 Electronic Cigarette Use: not used how long ago did patient quit smoking: quit 1994 second hand exposure: Yes (Smoked in the home ) alcohol intake: former year quit: 1994 substance use type: does not use what type of physical activity do you participate in: walking frequency: daily mellisa/spiritism: Judaism seatbelt use: always additional social history: does take aspirin does take ibuprofen ROS ROS ED Review of Systems ROS Unobtainable: other Constitutional Constitutional ED: Reports lethargy; Denies chills, fever(s), sweats or weight loss Eyes Eyes: Denies blurry vision, change in vision or diplopia ENT ENT ED: Denies rhinorrhea or sore throat Cardiovascular Cardiovascular: Denies chest pain, orthopnea or racing heartbeat Respiratory/Chest Respiratory/Chest: Denies cough, dyspnea, dyspnea on exertion, orthopnea or sputum Gastrointestinal Gastrointestinal: Denies abdominal pain, diarrhea, nausea or vomiting Genitourinary Genitourinary ED: Denies dysuria, hematuria or urinary frequency Musculoskeletal Musculoskeletal: Reports other Details: Left hip pain ; Denies arthralgias, back pain, myalgias or neck pain Integumentary Denies abscess, Abrasions or rash Neurologic Neurologic: Denies headache(s) or weakness Psychiatric Psychiatric: Denies anxiety, depression or suicidal thoughts Endocrine Endocrinology: Denies polydipsia, polyphagia or polyuria Hematologic/Lymphatic Hematologic/Lymphatic: Denies easy bleeding, easy bruising or lymphadenopathy Allergic/Immunologic Allergic/Immunologic ED: Denies mouth swelling, tongue swelling or urticaria EXAM Physical Exam Const Vital Signs: 02/16/24 13:10 Temperature 98 F Temperature Source Oral Pulse Rate 76 Respiratory Rate 16 Blood Pressure 176/74 H Blood Pressure Mean 108 Pulse Ox 100 Oxygen Delivery Method Room Air Positive well nourished and well developed General Appearance ED: well developed and NAD HEENT Reports TM's clear and moist mucous membranes normocephalic and atraumatic; Negative for trauma or tenderness Tympanic Membrane ED: Yes TM's clear Eyes PERRL and EOMs intact bilaterally General Eye ED: Negative for pale conjunctiva or scleral icterus Neck no lymphadenopathy, supple and no JVD General: Negative for tenderness Chest Wall inspection of chest normal and palpation of chest normal Chest: Negative for tenderness Resp normal respiratory effort and clear to auscultation bilaterally Effort and Inspection: Negative for respiratory distress or pain with movement Auscultation: Negative for rhonchi, wheezes or diminished lung sounds Cardio regular rate, regular rhythm, S1 normal heart sound, S2 normal heart sound and no murmurs Peripheral Pulses: pulses 2+ throughout GI normal to inspection, nondistended, normoactive bowel sounds, soft to palpation, non-tender, non-distended and no masses Back/Spine no CVA tenderness and no thoracic nor lumbar tenderness Extremity Extremity Narrative: Left hip-there is no extremity shortening or rotational deformity. There is no evidence of ecchymosis or bruising or significant soft tissue swelling over the hip. He does have some tenderness palpation over the hip. He has pain with logrolling at the hip. He is neurovascular intact distally. General Extremety ED: Negative for edema General Extremity: Negative for edema Neuro oriented x3, CN's II-XII intact bilaterally, no sensory deficits noted and gait normal Sensorium / Orientation: awake, alert, oriented to person, oriented to place and oriented to time Motor Exam: strength 5/5 throughout and strength abnormal Psych mental status grossly normal Skin no rashes or lesions noted and no wounds MDM MDM MDM Narrative Medical decision making narrative: Patient presents to the emergency department after a mechanical fall with complaint of pain to the left hip and difficulty ambulating secondary to pain. Denies striking his head or loss of consciousness. Patient denies neck pain. Clinically looks well and clinically low suspicion for hip fracture but need to rule out pelvic ring fracture. Three-view x-rays of the left hip and pelvis obtained interpreted by myself as nondisplaced fracture of the inferior pubic ramus. Initially radiology felt the x-rays were normal but after discussion with radiologist and given that the fracture line only seen on 1 view suspect there is a fracture there clinically. Discussed results with patient. Will give him crutches. I did give him 1 dose of Cordova in the emergency department. I will write him a prescription for Cordova. Advised to follow-up with orthopedics on-call within the next 5 to 7 days. Lab Data Attestation: I reviewed the patient's lab results. Radiography Diagnostic Testing: Clinical Impression(s) from Imaging Studies Hip/Pelvis X-Ray 02/16/24 14:06 IMPRESSION: No acute abnormality is present. Electronically Signed: Guerrero Torres MD at 15:05 EST , Three-view x-rays of the left hip interpreted by myself as nondisplaced fracture through the inferior pubic ramus. Radiology in agreement Discharge Plan Triage Chief Complaint: Lower Extremity Injury ED Provider: Tutu Jones Dx/Rx/DC Orders Clinical Impression: Closed fracture of left inferior pubic ramus Instructions: ED Pelvic Fracture Prescriptions: New hydrocodone-acetaminophen 5-325 mg tablet 1 tab PO Q4H PRN PRN (Reason: Pain) 2 Days Qty: 10 0RF No Action (DME) FreeStyle Lite Strips Strip See Rx Instructions .ROUTE .MEDSUPPLY Qty: 100 3RF Rx Instructions: check blood glucose daily for type 2 DM (DME) blood-glucose meter [FreeStyle Lite Meter] Kit See Rx Instructions .ROUTE .MEDSUPPLY Qty: 1 0RF Rx Instructions: As directed, check blood glucose daily for type 2 DM (DME) lancets [FreeStyle Lancets] 28 gauge misc See Rx Instructions .ROUTE .MEDSUPPLY Qty: 200 3RF Rx Instructions: check blood glucose daily for type 2 DM hydroxychloroquine 200 mg tablet 400 mg PO DAILY clopidogrel [Plavix] 75 mg tablet 75 mg PO DAILY Qty: 30 5RF amlodipine 5 mg tablet 5 mg PO DAILY Qty: 90 3RF atorvastatin [Lipitor] 80 mg tablet 80 mg PO DAILY Qty: 90 3RF Farxiga 10 mg tablet 10 mg PO QAM Qty: 90 3RF losartan 25 mg tablet 37.5 mg PO DAILY 90 Days Qty: 135 3RF Mounjaro 7.5 mg/0.5 mL pen injector 7.5 mg subcut QWEEK aspirin 81 mg Tablet,Chewable 81 mg PO BREAKFAST 30 Days Qty: 30 0RF ciprofloxacin HCl [Cipro] 500 mg tablet 500 mg PO BID Qty: 20 0RF docusate sodium [Colace] 100 mg capsule 100 mg PO BID Qty: 20 0RF oxycodone 5 mg tablet 5 mg PO Q6H PRN (Reason: pain) 3 Days Qty: 14 0RF hydrocodone-acetaminophen 5-325 mg tablet 1 tab PO Q6H PRN PRN (Reason: Pain) 3 Days Qty: 10 0RF (DME) blood pressure monitor [Blood Pressure Kit] Kit See Rx Instructions .ROUTE .MEDSUPPLY Qty: 1 0RF Rx Instructions: Check blood pressure daily for hypertension I10 fenofibrate 54 mg tablet 54 mg PO DAILY Qty: 90 3RF metoprolol tartrate 25 mg tablet 12.5 mg PO BID Qty: 30 0RF Primary Care Provider: Gonzales Mcintyre Referrals: Fahad Rao DO [Med Staff - Active Staff] - As Needed Gonzales Mcintyre, [employer]OTE[employer] SPECIALIST-[employer] [Primary Care Provider] - Print Language: Israeli Disposition Disposition: Home, Self Care
--- NOTE | 2024-02-16 15:37 | CHAPLAIN ---
Type of Pastoral Visit _x__ Initial Visit ___ Follow-up Visit ___ On-call Visit ___ General Patient Visit ___ Spiritual Assessment ___ Family Conference ___ Bereavement ___ Rapid Response ___ Code Blue ___ Other (describe below) Pastoral Care Referral From _x__ Patient ___ Family _x__ Nurse ___ Physician ___ Paperhanger Assistant ___ Bench Scientist ___ Other (describe below) Sacrament/Intervention _x__ Active listening ___ Anointing ___ Mormon ___ Bereavement ___ Communion ___ Stefany exploration ___ ___ Life review _x__ Prayer ___ Reconciliation ___ Sacrament of Sick _x__ Supportive presence ___ Wedding ___ Other (describe below) Pastoral Comments
[2024-02-16] MEDS: HYDROcodone Bitartrate/Apap 5/325 Tablet PO (15:42)
[2024-02-16 15:45] VITALS: BP 144/60; PULSE 62; RESP 16; TEMP 36.2; O2SAT 97; BMI 26.7
== END 2024-02-16 15:56 | disposition home or self-care (01) ==
PROVIDERS: Emergency Provider Emergency Medicine; PCP Nurse Practitioner Family; Visit Provider Emergency Medicine
DX: S32.502A Unspecified fracture of left pubis, initial encounter for closed fracture (principal); E11.9 Type 2 diabetes mellitus without complications; Z79.4 Long term (current) use of insulin; E78.00 Pure hypercholesterolemia, unspecified; I10 Essential (primary) hypertension; Z87.891 Personal history of nicotine dependence; W01.0XXA Fall on same level from slipping, tripping and stumbling without subsequent striking against object, initial encounter; Y93.89 Activity, other specified; Y92.096 Garden or yard of other non-institutional residence as the place of occurrence of the external cause; Z79.02 Long term (current) use of antithrombotics/antiplatelets; Z86.73 Personal history of transient ischemic attack (TIA), and cerebral infarction without residual deficits; Z79.899 Other long term (current) drug therapy; Z79.84 Long term (current) use of oral hypoglycemic drugs; Z90.49 Acquired absence of other specified parts of digestive tract; Z90.81 Acquired absence of spleen
CPT/HCPCS: 73502; 99283

== ENCOUNTER → 2024-02-25 | Outpatient (CLI) | payer OTHER, SELFPAY ==
--- NOTE | 2024-02-25 15:07 | CT_ITS ---
STUDY: CT PELVIS WITHOUT CONTRAST REASON FOR EXAM: Male, 63 years old. ACUTE PAIN L HIP following the fall. RADIATION DOSAGE (If Supplied By Facility): CTDIvol = ( 15.06 ) mGy, DLP = ( 503.93 ) mGycm TECHNIQUE: Transaxial imaging of the pelvis was performed with oral contrast, and without intravenous administration of contrast material. Individualized dose optimization techniques were used for this CT. COMPARISON: None. FINDINGS: Normal urinary bladder. Normal visualized small intestine. Normal visualized colon. There is no pelvic fluid. There is no pelvic mass lesion or lymphadenopathy. There is diffuse atherosclerotic calcification of the pelvic arteries. Normal abdominal wall. No fracture is seen. There is evidence of a 1.7 cm x 1.2 cm cyst in the lateral aspect of the left inferior pubic ramus. Degenerative changes of the symphysis pubis. CT/Pelvis without IV Contrast IMPRESSION: No acute fracture is seen. Electronically Signed: Guerrero Torres MD at 15:29 EST ,
== END | disposition home or self-care (01) ==
LOC: CT 15:05
PROVIDERS: PCP Nurse Practitioner Family; Referring Provider Orthopaedic Surgery; Visit Provider Orthopaedic Surgery
DX: M25.552 Pain in left hip (principal)
CPT/HCPCS: 72192

== ENCOUNTER → 2024-03-24 | Outpatient (CLI) | payer OTHER, SELFPAY ==
[2024-03-24 10:07] LABS: PSA,Total- Diagnostic < 0.01 ng/mL (0.0-4.0)
== END | disposition home or self-care (01) ==
LOC: LAB 09:10
PROVIDERS: PCP Nurse Practitioner Family; Referring Provider Urology; Visit Provider Urology
DX: C61 Malignant neoplasm of prostate (principal)
CPT/HCPCS: 36415; 84153

== ENCOUNTER → 2024-04-27 | Outpatient (CLI) | payer OTHER, SELFPAY ==
--- NOTE | 2024-04-27 16:00 | RAD_ITS ---
PROCEDURE: HIP, UNI W/ PELVIS 2-3 VIEWS REASON FOR EXAM: Right hip pain TECHNIQUE: One view of the pelvis and two views of the right hip COMPARISON: None. FINDINGS: No fracture. No suspicious bone lesion. Normal alignment. Mild joint space narrowing in the right hip Soft tissues are unremarkable. RAD/HIP, UNI W/ Pelvis 2-3 Views IMPRESSION: Mild degenerative changes with no acute osseous abnormality. Reading Location: [facility]
== END | disposition home or self-care (01) ==
PROVIDERS: PCP Nurse Practitioner Family; Referring Provider Nurse Practitioner Family; Visit Provider Nurse Practitioner Family
DX: M25.551 Pain in right hip (principal)
CPT/HCPCS: 73502

== ENCOUNTER → 2024-07-29 | Outpatient (CLI) | payer OTHER, SELFPAY ==
[2024-07-29 13:51] LABS: PSA,Total- Diagnostic < 0.02 ng/mL (0.00-4.00)
== END | disposition home or self-care (01) ==
LOC: LAB 12:15
PROVIDERS: PCP Nurse Practitioner Family; Referring Provider Urology; Visit Provider Urology
DX: C61 Malignant neoplasm of prostate (principal)
CPT/HCPCS: 36415; 84153

== ENCOUNTER → 2024-08-03 | Outpatient (CLI) | payer OTHER, SELFPAY ==
--- NOTE | 2024-08-03 14:04 | MRI_ITS ---
PROCEDURE: MRA HEAD ONLY WITHOUT CONTRAST 08/03/2024 REASON FOR EXAM: CEREBRAL ANEURYSM, NON RUPTURED TECHNIQUE: 3D Time of Flight MRA of the head. Multiplanar multisequential imaging was performed without IV contrast administration. FINDINGS: Interestingly, source images were not supplied. There is no basilar stenosis. There is no narrowing of the carotid siphons. The right A1 segment is mildly hypoplastic. Both posterior cerebral arteries are patent. There is no intra cranial aneurysm. No M1 or M2 stenosis. There is questionable narrowing of the junction of the left petrous ICA along with the precavernous ICA. MRI/MRA Head ONLY without Contrast IMPRESSION: Mild narrowing at the junction of the left precavernous and petrous ICA. Recom mend correlation with CT angiography. The remainder of the study is normal [facility]
== END | disposition home or self-care (01) ==
LOC: MRI 13:31
PROVIDERS: PCP Nurse Practitioner Family
DX: I67.1 Cerebral aneurysm, nonruptured (principal)
CPT/HCPCS: 70544

== ENCOUNTER 2025-01-19 13:04 | Emergency (ER) | payer OTHER, SELFPAY ==
[2025-01-19 13:05] VITALS: BP 147/77; PULSE 67; RESP 16; TEMP 36.8; O2SAT 99; BMI 21.7
[2025-01-19 13:34] LABS: Red Blood Cells-Urine 0 SEEN /hpf (0-5)
[2025-01-19 13:37] LABS: Color, Urine Yellow (Yellow); Glucose, Dipstick 1000 mg/dl (Normal); Ketone-Dipstick 5 mg/dl (Negative); Leukocyte Esterase-Dipstick Negative /ul (Negative); Nitrite-Dipstick Negative (Negative); Occult Blood-Urine Negative /ul (Negative); Protein-Dipstick 30 mg/dl (Negative); Specific Gravity, Urine 1.025 (1.002-1.030); Urine Bilirubin Dipstick Negative (Negative)
[2025-01-19 13:44] LABS: Mucous, Urine 1+ /hpf (<or=2+); Squamous Epithelial Cells - UA 0-5 SEEN /hpf (0-5)
[2025-01-19 14:08] LABS: Hematocrit 41.9 % (40-54); Hemoglobin 14.1 g/dL (13.0-16.5); Immature Granulocytes Count 0.040 X10^3/uL (0.0-0.0); Mean Corp Hgb Conc 33.7 g/dL (32-36); Mean Corpuscular Volume 92.1 fL (80-94); Mean Platelet Vol. 11.0 fl (6.2-12.0); NRBC Flagged by Analyzer 0 % (0-5); POSITIVE DIFFERENTIAL YES; POSITIVE MORPHOLOGY YES; Platelet Count 402 K/mm3 (150-450); RBC Distribution Width CV 13.2 % (11.6-14.6); RBC Distribution Width SD 45.0 fl (35.1-43.9); Red Blood Count 4.55 M/mm3 (4.6-6.2); White Blood Count 13.7 K/mm3 (4.4-11.0)
[2025-01-19 14:14] LABS: Differential Indicated SCAN CRITERIA MET
[2025-01-19 15:05] VITALS: BP 140/71; PULSE 74; RESP 16; O2SAT 100
[2025-01-19 15:15] LABS: Acanthocytes 1+
[2025-01-19 17:00] VITALS: BP 140/71; PULSE 78; RESP 16; O2SAT 98
--- NOTE | 2025-01-19 17:05 | EX.ED.DYSGE1 ---
HPI History of Present Illness Chief Complaint: Flank Pain Narrative Narrative: Patient was seen and examined after presenting to ED for left hip and flank pain states he had a history of prostate cancer but had his prostate removed that was about a year ago states that now for the past couple days he has noticed that he has been having pain on his left lower back and hip area. [facility] Medical History Wears glasses Diabetes Blood disorder Fatty liver High cholesterol Injury of head and neck Dietary restriction History of GI bleed Former smoker Aneurysm History of echocardiogram Cardiology follow-up encounter Hx of colonic polyp Leukocytosis Blood in stool Cough Screening PSA (prostate specific antigen) Osteoarthritis Rheumatoid arthritis Groin abscess Back pain History of seizures as a child Right trigeminal neuralgia Lipoma of forehead Mass of face Trevor Barrett syndrome (geniculate herpes zoster) Rheumatoid arthritis Nonrheumatic mitral (valve) insufficiency History of TIA (transient ischemic attack) Essential (primary) hypertension Type II diabetes mellitus Stroke Pneumonia Hyperlipidemia Home Medications Medication Instructions Recorded Last Taken Type blood sugar diagnostic (FreeStyle #100 ea 09/09/18 Unknown Rx Lite Strips) blood-glucose meter (FreeStyle #1 ea 09/09/18 Unknown Rx Lite Meter kit) lancets 28 gauge (FreeStyle #200 ea 09/09/18 Unknown Rx Lancets) hydroxychloroquine 200 mg tablet 400 mg PO DAILY 10/23/21 12/04/23 History aspirin 81 mg chewable tablet 81 mg PO BREAKFAST 30 days #30 tabs 06/04/22 11/23/23 Rx amlodipine 5 mg tablet 5 mg PO DAILY #90 tabs 06/12/22 12/05/23 05:30 Rx atorvastatin 80 mg tablet (Lipitor) 80 mg PO DAILY cholesterol #90 tabs 06/12/22 12/04/23 Rx dapagliflozin propanediol 10 mg 10 mg PO QAM #90 tabs 06/12/22 12/04/23 Rx tablet (Farxiga) losartan 25 mg tablet 37.5 mg (1.5 x 25 mg) PO DAILY 06/12/22 12/05/23 Rx blood pressure 3 months #135 tabs blood pressure monitor (Blood #1 ea 07/02/22 Unknown Rx Pressure Kit) clopidogrel 75 mg tablet (Plavix) 75 mg PO DAILY #30 tabs 07/09/22 11/23/23 Rx Held on 12/05/23. Instructions: Resume on 12/19/23. fenofibrate 54 mg tablet 54 mg PO DAILY #90 tabs 08/20/22 06/11/23 Rx tirzepatide 7.5 mg/0.5 mL 7.5 mg subcut QWEEK 05/26/23 11/23/23 History subcutaneous pen injector (Mounjaro) metoprolol tartrate 25 mg tablet 12.5 mg (1/2 x 25 mg) PO BID #30 10/30/23 12/05/23 Rx tabs ciprofloxacin HCl 500 mg tablet 500 mg PO BID #20 tabs 12/05/23 Unknown Rx (Cipro) docusate sodium 100 mg capsule 100 mg PO BID #20 caps 12/05/23 Unknown Rx (Colace) Allergy/AdvReac Type Severity Reaction Status Date / Time james seed Allergy Severe Anaphylaxis Verified 01/19/25 13:07 pneumococcal vaccine (From Allergy Intermediate Rash & Verified 01/19/25 13:07 Pneumovax 23) Swelling Family History Sister Diabetes Hypertension High cholesterol blood clots Cardiovascular disease Brother Myocardial infarction High cholesterol Heart disease TIA (transient ischemic attack) Cardiovascular disease Mother Myocardial infarction Hypertension Arthritis History of blood transfusion Heart disease Kidney disease Cardiovascular disease Father High cholesterol CVA (cerebral vascular accident) blood clots Cardiovascular disease Grandmother CVA (cerebral vascular accident) Surgical History Hx of colonoscopy History of excision of lesion History of tonsillectomy History of lymphoid or hematologic neoplasm History of appendectomy History of splenectomy Social History housing: house current occupational status: employed 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 @ [employer] Smoking Status: Former smoker Tobacco: How many years used: Electronic Cigarette Use: not used how long ago did patient quit smoking: quit 1994 second hand exposure: Yes (Smoked in the home ) alcohol intake: former year quit: 1994 substance use type: does not use what type of physical activity do you participate in: walking frequency: daily mellisa/oriental orthodox: Christianity seatbelt use: always additional social history: does take aspirin does take ibuprofen ROS ROS ED ROS Narrative Pertinent Positives: Left low back and hip pain history of prostate cancer status post prostatectomy Pertinent Negatives: Fevers chills nausea vomiting urinary retention loss of bowel or bladder control saddle anesthesia history of IV drug use numbness tingling abdominal pain chest pain shortness of breath The remainder of review of systems negative unless otherwise stated in the HPI above. Systems reviewed including constitutional, psychiatric, cardiovascular, respiratory, integument, HENT, gastrointestinal. EXAM Physical Exam Narrative Exam Narrative: Patient is afebrile hemodynamically stable does not appear toxic or in distress normocephalic and atraumatic abdomen is soft nontender nondistended no evidence of any sort of retroperitoneal hematomas or evidence of shingles other vesicular lesions skin discoloration such as cellulitis or necrotizing process or hemorrhagic bullae he does have reproducible pain on palpation along the iliac crest on the left side nothing involving the cervical thoracic or lumbar spine itself does not seem to affect the SI joint he still has range of motion of his left hip without Const Vital Signs: 01/19/25 13:05 01/19/25 15:05 01/19/25 17:00 Temperature 98.2 F Temperature Source Oral Pulse Rate 67 74 78 Respiratory Rate 16 16 16 Blood Pressure 147/77 H 140/71 H 140/71 H Blood Pressure Mean 100 94 94 Pulse Ox 99 100 98 Oxygen Delivery Method Room Air Room Air 01/19/25 18:51 Temperature Temperature Source Pulse Rate 66 Respiratory Rate 16 Blood Pressure 140/71 H Blood Pressure Mean 94 Pulse Ox 100 Oxygen Delivery Method Room Air MDM MDM MDM Narrative Medical decision making narrative: Nursing notes, triage notes, available previous documentation, and vital signs were reviewed. Any discrepancies noted were addressed. Differential Diagnoses: Will evaluate his for underlying bony malignancy but low suspicion for nephrolithiasis cellulitis or necrotizing process no suspicion for aortic etiology Labs Reviewed: Slight leukocytosis of 15.7 hemoglobin is 14.1. Urine shows glucose protein 5 ketones but no evidence of bladder infection. No significant electrolyte abnormality or renal insufficiency or transaminitis Imaging Reviewed: Patient CT came back he was unremarkable for any acute pathology patient will be discharged with return precautions and follow-up recommendations Previous Documentation Reviewed: None available or applicable at this time. ED Course: Patient presenting with symptoms as stated above patient is undergo a CT of the abdomen and pelvis to evaluate for any other abnormalities especially like any sort of malignancy or lesions. Plan will be to discharge this patient barring a significant findings. CT was unremarkable labs were also fairly unremarkable return precautions follow-up recommendations provide patient stable for discharge home This note was made utilizing voice recognition software. All attempts were made to correct spelling or other errors prior to note completion. However, due to the fast-paced nature of emergency medicine, some errors may still be present. Lab Data Labs: Laboratory Results - last 24 hr 01/19/25 01/19/25 01/19/25 13:25 13:50 16:17 WBC 13.7 H RBC 4.55 L Hgb 14.1 Hct 41.9 MCV 92.1 MCH 31.0 MCHC 33.7 RDW Std Deviation 45.0 H RDW Coeff of Linh 13.2 Plt Count 402 MPV 11.0 Immature Gran % (Auto) 0.300 Neut % (Auto) 40.7 L Lymph % (Auto) 40.4 [place] % (Auto) 11.1 H Eos % (Auto) 6.5 H Baso % (Auto) 1.0 Absolute Neuts (auto) 5.6 Absolute Lymphs (auto) 5.52 H Nucleated RBC % 0 Acanthocytes (Spur) 1+ Sodium Cancelled 138 Potassium Cancelled 4.2 Chloride Cancelled 105 Carbon Dioxide Cancelled 21.7 Anion Gap Cancelled 12 BUN Cancelled 22 H Creatinine Cancelled 0.83 Estim Creat Clear Calc Cancelled 86.06 Est GFR (MDRD) Non-Af Cancelled 98 BUN/Creatinine Ratio Cancelled 27.0 H Glucose Cancelled 94 Calcium Cancelled 9.4 Total Bilirubin Cancelled 0.56 AST Cancelled 25 ALT Cancelled 17 Alkaline Phosphatase Cancelled 57 Total Protein Cancelled 6.5 Albumin Cancelled 4.2 Globulin Cancelled 2.3 Albumin/Globulin Ratio Cancelled 1.8 Urine Color Yellow Urine Clarity Clear Urine pH 6.0 Ur Specific [place] 1.025 Urine Protein 30 H Urine Glucose (UA) 1000 H Urine Ketones 5 H Urine Occult Blood Negative Urine Nitrite Negative Urine Bilirubin Negative Urine Urobilinogen Normal Ur Leukocyte Esterase Negative Urine RBC 0 SEEN Urine WBC 0 SEEN Ur Squamous Epith Cells 0-5 SEEN Urine Bacteria 0 SEEN Urine Mucus 1+ Radiography Diagnostic Testing: Clinical Impression(s) from Imaging Studies Abdomen/Pelvis CT 01/19/25 17:25 IMPRESSION: No acute abnormalities of the abdomen or pelvis. Chronic and ancillary findings as above. Reading Location: [facility] Discharge Plan Triage Chief Complaint: Flank Pain ED Provider: Marcelino Crain Dx/Rx/DC Orders Clinical Impression: Acute left flank pain, History of prostate cancer Instructions: ED Flank Pain with Uncertain Cause Prescriptions: No Action (DME) FreeStyle Lite Strips Strip See Rx Instructions .ROUTE .MEDSUPPLY Qty: 100 3RF Rx Instructions: check blood glucose daily for type 2 DM (DME) blood-glucose meter [FreeStyle Lite Meter] Kit See Rx Instructions .ROUTE .MEDSUPPLY Qty: 1 0RF Rx Instructions: As directed, check blood glucose daily for type 2 DM (DME) lancets [FreeStyle Lancets] 28 gauge misc See Rx Instructions .ROUTE .MEDSUPPLY Qty: 200 3RF Rx Instructions: check blood glucose daily for type 2 DM hydroxychloroquine 200 mg tablet 400 mg PO DAILY clopidogrel [Plavix] 75 mg tablet 75 mg PO DAILY Qty: 30 5RF amlodipine 5 mg tablet 5 mg PO DAILY Qty: 90 3RF atorvastatin [Lipitor] 80 mg tablet 80 mg PO DAILY Qty: 90 3RF Farxiga 10 mg tablet 10 mg PO QAM Qty: 90 3RF losartan 25 mg tablet 37.5 mg PO DAILY 90 Days Qty: 135 3RF Mounjaro 7.5 mg/0.5 mL pen injector 7.5 mg subcut QWEEK aspirin 81 mg Tablet,Chewable 81 mg PO BREAKFAST 30 Days Qty: 30 0RF ciprofloxacin HCl [Cipro] 500 mg tablet 500 mg PO BID Qty: 20 0RF docusate sodium [Colace] 100 mg capsule 100 mg PO BID Qty: 20 0RF (DME) blood pressure monitor [Blood Pressure Kit] Kit See Rx Instructions .ROUTE .MEDSUPPLY Qty: 1 0RF Rx Instructions: Check blood pressure daily for hypertension I10 fenofibrate 54 mg tablet 54 mg PO DAILY Qty: 90 3RF metoprolol tartrate 25 mg tablet 12.5 mg PO BID Qty: 30 0RF Primary Care Provider: Gonzales Mcintyre Referrals: Gonzales Mcintyre, [facility] [Primary Care Provider, Family Practice] Activity Restrictions/Additional Instructions: Follow-up with your primary care doctor if you are having worsening symptoms do not hesitate to return Print Language: Kinyarwanda Disposition Disposition: Home, Self Care D/C Safety Score for UGIB Assessment Liyah-Blatchford Bleeding Score (GBS): Stratifies upper GI bleeding patients who are "low-risk" and candidates for outpatient management. Hemoglobin, BUN, Recent Vital Signs: Hgb 14.1 g/dL (13.0-16.5) 01/19/25 13:50 BUN 22 mg/dL (4-19) H 01/19/25 16:17 Pulse Rate 66 Blood Pressure 140/71 Score Interpretation: Score of 0: A GBS of 0 is a “Low Risk” GI bleed, and is highly sensitive (99.6% in a 2006 retrospective study) for predicting which patients did not require any “medical intervention”: blood transfusion, endoscopy, or surgery. This was confirmed in a [address] [facility] study where patients with a score of 0 were actually discharged and had no GI bleeding mortality at 6 month followup Score above 0: A GBS greater than zero suggests a “High Risk” GI bleed that is likely to require “medical intervention”: transfusion, endoscopy, or surgery. A higher GBS also correlated with a higher likelihood of needing intervention Scores >/= 6 are associated with >50% risk of needing intervention D/C Safety Score for LGIB Assessment Assessment Tool: Readmission and adverse event risk in patients with acute lower GI bleeding. Hemoglobin and Recent Vital Signs: Hgb 14.1 g/dL (13.0-16.5) 01/19/25 13:50 Pulse Rate 66 01/19/25 18:51 Blood Pressure 140/71 01/19/25 18:51 Score Interpretation: Probability Percentage of safe discharge (absence of rebleeding, blood transfusion, therapeutic intervention, 28 day readmission, or ) Score of 8 or below: Consider discharge, with appropriate precautions. Score of 9 or above: Discharge NOT recommended. Consider admission with further workup and resuscitation as necessary.
[2025-01-19 17:17] LABS: AST(SGOT) 25 U/L (<=37); Alanine Aminotransfer ALT/SGPT 17 U/L (<=46); Albumin, Serum 4.2 g/dL (3.4-4.8); Alkaline Phosphatase 57 U/L (40-129); Anion Gap 12 (5-15); BUN 22 mg/dL (4-19); BUN/Creat Ratio 27.0 RATIO (10-20); Calcium,Total 9.4 mg/dL (7.6-11.0); Carbon Dioxide 21.7 mmol/L (21.0-32.0); Chloride 105 mmol/L (98-108); Estimated Creatinine Clearance 86.06 ml/min (50-250); Globulin 2.3 g/dL (2.2-4.2); Glucose 94 mg/dL (70-99); Potassium 4.2 mmol/L (3.3-5.1)
--- NOTE | 2025-01-19 17:25 | CT_ITS ---
PROCEDURE: ABDOMEN/PELVIS W IV CONT ONLY 01/19/2025 REASON FOR EXAM: LEFT HIP AND FLANK PAIN HISTORY OF PROSTATE CANCER TECHNIQUE: Procedure Code: [id number] Modality: CT Procedure: ABDOMEN/PELVIS W IV CONT ONLY Coronal and Sagittal reconstruction series were provided. CONTRAST: Isovue-300 VOLUME: 96 mL One or more dose reduction techniques were used (e.g., Automated exposure control, adjustment of the mA and/or kV according to patient size, use of iterative reconstruction technique. RADIATION DOSE SUMMARY: CTDlvol: 13+ 11 mGy DLP: 633 mGycm COMPARISON: 05/07/2020 CT. FINDINGS: The lung bases are clear. The peripheral soft tissues unremarkable. Mild degenerative changes of the visualized spine. Moderate atherosclerosis. Normal caliber abdominal aorta. Subcentimeter retroperitoneal lymph nodes. Surgical clips in the region of the splenic hilum. Severely atrophic spleen. The liver is unremarkable. Normal gallbladder. The pancreas is unremarkable. The adrenal glands are unremarkable. Symmetric enhancement of the bilateral kidneys in the corticomedullary phase. No hydroureteronephrosis. The urinary bladder is unremarkable. Normal caliber large and small bowel without surrounding inflammatory changes. The prostate is not visualized and may be surgically absent. CT/Abdomen/Pelvis W IV Cont ONLY IMPRESSION: No acute abnormalities of the abdomen or pelvis. Chronic and ancillary findings as above. Reading Location: [id number]
[2025-01-19 18:51] VITALS: BP 140/71; PULSE 66; RESP 16; O2SAT 100
--- NOTE | 2025-01-19 20:23 | ED.RN ---
called CT to inquire about CT results. being read at this time.
[2025-01-19] MEDS: HYDROcodone Bitartrate/Apap 5/325 Tablet PO (20:53)
== END 2025-01-19 20:54 | disposition home or self-care (01) ==
PROVIDERS: Emergency Provider Specialist/Technologist Athletic Trainer; PCP Nurse Practitioner Family; Visit Provider Specialist/Technologist Athletic Trainer
DX: R10.A2 Flank pain, left side (principal); M06.80 Other specified rheumatoid arthritis, unspecified site; E11.9 Type 2 diabetes mellitus without complications; Z87.891 Personal history of nicotine dependence; M25.552 Pain in left hip; I10 Essential (primary) hypertension; E78.00 Pure hypercholesterolemia, unspecified; Z85.46 Personal history of malignant neoplasm of prostate; Z86.73 Personal history of transient ischemic attack (TIA), and cerebral infarction without residual deficits; Z79.1 Long term (current) use of non-steroidal anti-inflammatories (NSAID); Z79.899 Other long term (current) drug therapy; Z79.84 Long term (current) use of oral hypoglycemic drugs; Z79.82 Long term (current) use of aspirin; Z79.02 Long term (current) use of antithrombotics/antiplatelets; Z79.85 Long-term (current) use of injectable non-insulin antidiabetic drugs; Z90.49 Acquired absence of other specified parts of digestive tract; Z90.81 Acquired absence of spleen; Z90.79 Acquired absence of other genital organ(s)
CPT/HCPCS: 74177; 80053; 81001; 85025; 99283; Q9967; A4216

== ENCOUNTER → 2025-02-26 | Outpatient (CLI) | payer SELFPAY ==
--- OUTSIDE RECORDS SUMMARY | 2025-02-26 10:51 | XMS RPT_ITS | CCD ---
Author Organization [facility] Care Team Providers Care Foundry Engineer Name Role Phone David Manuel Attending Unavailable Roney Andrews Attending Unavailable Macario Tyler Referring Unavaila ble STANFORD TANIA Consulting Unavailable ZAWAM YACIN Admitting Unavailable ZAWAM YACIN Attending Unavailable Brianna Anne Admitting Unavailable Macario Tyler Referring Unavaila ble JASPER HERNANDEZ Admitting Unavailable JASPER HERNANDEZ Attending Unavailable [employer] Admitting Unavailable Macario Tyler Referring Unavaila Macario Adams Referring Unavaila ble Beronica Motta Admitting UnavailBeronica Uriarte Attending Unavailabl Brianna Raman Admitting Unavailable Brianna Anne Attending Unavailable YVONNE DORAN Attending Unavailable MACARIO TYLER~[id number] Primary Care [facility] Dr. Iftikhar Carlos Primary Care Provider [phone] Dr. Iftikhar Carlos Attending Provider [phone] Dr. Iftikhar Carlos Referring Provider [phone] Francisco Javier PLAYERS CLUB REPRESENTATIVE, PLAYERS CLUB REPRESENTATIVE-C Gonzales Attending Provider [phone] Dr. Iftikhar Carlos Primary Care Provider [phone] Dr. Iftikhar Carlos Referring Provider [phone] Francisco Javier PLAYERS CLUB REPRESENTATIVE, PLAYERS [employer]UB REPRESENTATIVE-C Gonzales Attending Provider [phone] Dr. Iftikhar Carlos Primary Care Provider [phone] Dr. Iftikhar Carlos Referring Provider [phone] Francisco Javier PLAYERS CLUB REPRESENTATIVE, PLAYERS CLUB REPRESENTATIVE-C Gonzales Attending Provider [phone] Dr. Iftikhar Carlos Primary Care Provider [phone] Dr. Iftikhar Carlos Referring Provider [phone] Francisco Javier PLAYERS CLUB REPRESENTATIVE, PLAYERS CLUB REPRESENTATIVE-C Gonzales Attending Provider [phone] Dr. Iftikhar Carlos Primary Care Provider [phone] Dr. Iftikhar Carlos Referring Provider [phone] Francisco Javier PLAYERS CLUB REPRESENTATIVE, PLAYERS CLUB REPRESENTATIVE-C Gonzales Attending Provider [phone] Dr. Pantera Fair[place] Attending Provider Dr. Lyndon Winston Emergency Provider [phone] Dr. Krista Romero Admit Provider Dr. Krista Romero Attending Provider Dr. Krista Romero Other Provider Macario Tyler Primary Care Provider [phone] Krista Romero MD Unavailable Unavailable Dr. Iftikhar Carlos Primary Care Provider [phone] Dr. Iftikhar Carlos Referring Provider [phone] Francisco Javier PLAYERS CLUB REPRESENTATIVE, PLAYERS [employer]UB REPRESENTATIVE-C Gonzales Attending Provider [phone] Dr. Obi Lozano Attending Provider [phone] Iftikhar Carlos Attending Provider [phone] Mosquera Primary Care Provider [phone] Dr. Iftikhar Carlos Primary Care Provider [phone] Dr. Iftikhar Carlos Referring Provider [phone] Dr. Obi Lozano Attending Provider Dr. Yefri Bear Attending Provider Dr. Obi Lozano Referring Provider Dr. Iftikhar Carlos Attending Provider [phone] Gonzales Mosquera MD Primary Care Provider [phone] Dr. Iftikhar Carlos Primary Care Provider [phone] Dr. Iftikhar Carlos Referring Provider [phone] OTTO Tam-C Crystal Attending Provider Mosquera VSC, PLAYERS CLUB REPRESENTATIVE-C Gonzales Primary Care Provider Coty Lorenzo Attending Provider Unavailable Friend, Dr. Guzman Attending Provider [phone] Friend, Dr. Guzman Referring Provider [phone] Anabel, Dr. Guzman Other Provider Francisco Javier DE LEON, Gonzales Primary Care Provider [phone] Mosquera PLAYERS CLUB REPRESENTATIVE-C, Gonzales Primary Care Provider Mosquera PLAYERS CLUB REPRESENTATIVE-C, Gonzales Attending Provider Mosquera PLAYERS CLUB REPRESENTATIVE-C, Gonzales Referring Provider Jacquelyn DE LEON, Dr. Luis Piedra Attending Provider Jacquelyn DE LEON, Dr. Luis Piedra Referring Provider MEHRAN CHAVEZ Attending Provider MEHRAN CHAVEZ Referring Provider Mosquera VSC, Gonzales Primary Care Unavailable Borruso, Fahad Referring Unavailable BorruFahad lim Attending Unavailable Mosquera VSC, Gonzales Primary Care Unavailable JacquelynLuis marin Attending Unavailable Mosquera VSC, Gonzales Primary Care Unavailable JacquelynLuis marin Attending Unavailable JacquelynLuis Referring Unavailable Mosquera VSC, Gonzales Primary Care Unavailable Elieser Holman Attending Unavailable JacquelynLuis Referring Unavailable Mosquera VSC, Gonzales Primary Care Unavailable Mosquera VSC, Gonzales Referring Unavailable Dixon Cote Attending Unavailable Mosquera VSC, Gonzales Primary Care Unavailable Mosquera VSC, Gonzales Referring Unavailable Borruso, Fahad Attending Unavailable Mosquera VSC, Gonzales Primary Care Unavailable Mosquera VSC, Gonzales Referring Unavailable Mosquera VSC, Gonzales Attending Unavailable Mosquera VSC, Gonzales Primary Care Unavailable JacquelynLuis Attending Unavailable JacquelynLuis Referring Unavailable Mosquera VSC, Gonzales Primary Care Unavailable LAILA MCLAIN Referring Unavailable LAILA MCLAIN Attending Unavailable Mosquera VSC, Gonzales Primary Care Unavailable Schwiger, Virgilio Referring Unavailable Schwiger, Virgilio Attending Unavailable Mosquera VSC, Gonzales Primary Care Unavailable UngTutu hill Attending Unavailable Mosquera VSC, Gonzales Primary Care Unavailable Jacquelyn, Man Attending Unavailable Jacquelyn, Man Admitting Unavailable Jacquelyn, Man Referring Unavailable Mosquera VSC, Gonzales Primary Care Unavailable Patience Coto Attending Unavailable Mosquera VSC, Gonzales Primary Care Unavailable Jacquelyn, Man Referring Unavailable Jacquelyn, Man Attending Unavailable Mosquera VSC, Gonzales Primary Care Unavailable Jacquelyn, Man Attending Unavailable Jacquelyn, Man Referring Unavailable MIKULA, NAGELES Attending Unavailable MIKULA, ANGELES Referring Unavailable ANNE, RANDALL Admitting Unavailable ANNE, RANDALL Attending Unavailable Allergies Allergy Classification Reported Allergen(s) Allergy Type Date of Onset Reaction(s) Facility (3 sources) Pneumococcal vaccine; Translations: [PNEUMOCOCCAL VACCINE] Drug Allergy 02-25-20 24 [facility] Repository (1 source) YES - ALLERGIES EXIST; Translations: [YES - ALLERGIES EXIST] Propensity to adverse reactions (disorder) [facility] Repository (1 source) NO FOOD OR LATEX ALLERGY; Translations: [NO FOOD OR LATEX ALLERGY] Propensity to adverse reactions (disorder) [facility] Repository (20 sources) everardo seed allergenic extract; Translations: [EVERARDO SEED] Drug Allergy 07-05-19 21 Hives, Itching, Rash, Shortness of Breath, Swelling [facility] (13 sources) Pneumococcal vaccine Drug Allergy 07-21-19 22 Rash & Swelling [facility] (20 sources) Streptococcus pneumoniae type 1 capsular polysaccharide antigen / Streptococcus pneumoniae type 10A capsular polysaccharide antigen / Streptococcus pneumoniae type 11A capsular polysaccharide antigen / Streptococcus pneumoniae type 12F capsular polysaccharide antigen / Streptococcus pneumoniae type 14 capsular polysaccharide antigen / Streptococcus pneumoniae type 15B capsular polysaccharide antigen / Streptococcus pneumoniae type 17F capsular polysaccharide antigen / Streptococcus pneumoniae type 18C capsular polysaccharide antigen / Streptococcus pneumoniae type 19A capsular polysaccharide antigen / Streptococcus pneumoniae type 19F capsular polysaccharide antigen / Streptococcus pneumoniae type 2 capsular polysaccharide antigen / Streptococcus pneumoniae type 20 capsular polysaccharide antigen / Streptococcus pneumoniae type 22F capsular polysaccharide antigen / Streptococcus pneumoniae type 23F capsular polysaccharide antigen / Streptococcus pneumoniae type 3 capsular polysaccharide antigen / Streptococcus pneumoniae type 33F capsular polysaccharide antigen / Streptococcus pneumoniae type 4 capsular polysaccharide antigen / Streptococcus pneumoniae type 5 capsular polysaccharide antigen / Streptococcus pneumoniae type 6B capsular polysaccharide antigen / Streptococcus pneumoniae type 7F capsular polysaccharide antigen / Streptococcus pneumoniae type 8 capsular polysaccharide antigen / Streptococcus pneumoniae type 9N capsular polysaccharide antigen / Streptococcus pneumoniae type 9V capsular polysaccharide antigen; Translations: [PNEUMOCOCCAL 23-DANIE PS VACCINE] Drug Allergy 09-21-19 [facility] (1 source) everardo seed allergenic extract Drug Allergy 02-25-20 [facility] Repository Medications Current Medications Medication Drug Class(es) Dates Sig (Normalized) Sig (Original) aspirin 81 mg chewable tablet (20 sources) Platelet Aggregation Inhibitor, Nonsteroidal Anti-inflammatory Drug Start: 06-04-2022 take 1 tablet by mouth at breakfast Aspirin 81 mg Tablet,Chewable Active 81 mg PO WITH BREAKFAST June 04, 2022 12:00am Start: 07-04-2020 take 325 mg by mouth once naresh y Aspirin Active 325 MG PO DAILY July 03, 2020 11:00pm Start: 06-28-2020 End: 07-04-2020 take 1 tablet by mouth once daily Aspirin 81 MG tablet,delayed release (DR/EC) Discontinued 81 mg PO DAILY June 28, 2020 12:00am July 04, 2020 2:59pm Start: 05-16-2019 End: 06-16-2020 take 1 tablet by mouth once daily Aspirin 81 MG tablet,chewable Discontinued 81 mg PO DAILY@0800 30 May 16, 2019 1:00am June 16, 2020 9:33am Blood Pressure Monitor (Bloo d Pressure Kit) kit (6 sources) Start: 07-02-2022 Blood Pressure Monitor (Blood Pressure Kit) kit Active 0 .ROUTE .MEDSUPPLY July 01, 2022 11:00pm Check blood pressure daily for hypertension I10 Start: 07-02-2022 Blood Pressure Monitor (Blood Pressure Kit) kit Active 0 .ROUTE .MEDSUPPLY July 02, 2022 12:00am Check blood pressure daily for hypertension I10 Blood-Glucose Meter (Freesty le Lite Meter) kit (13 sources) Start: 09-09-2018 Blood-Glucose Meter (Freestyle Lite Meter) kit Active 0 .ROUTE .MEDSUPPLY September 08, 2018 11:00pm As directed, check blood glucose daily for type 2 DM Start: 09-09-2018 Blood-Glucose Meter (Freestyle Lite Meter) kit Active 0 .ROUTE .MEDSUPPLY September 09, 2018 12:00am As directed, check blood glucose daily for type 2 DM ciprofloxacin 500 mg oral tablet (2 sources) Quinolone Antimicrobial Start: 12-05-2023 take 1 tablet by mouth twice daily Ciprofloxacin Hcl (Cipro) 500 mg tablet Active 500 mg PO TWICE A DAY December 05, 2023 12:00am clopidogrel 75 mg oral tablet (20 sources) P2Y12 Platelet Inhibitor Start: 07-22-2022 take 1 tablet by mouth once daily clopidogrel (PLAVIX) 75 mg tablet Take 75 mg by mouth once daily. 07/22/2022 Active Start: 07-02-2022 End: 07-09-2022 take 1 tablet by mouth once daily Clopidogrel (Plavix) 75 mg tablet Active 75 mg PO DAILY July 09, 2022 3:32pm On Hold: Resume on 12/19/23. Comment on above: Take 75 mg by mouth once daily. docusate sodium 100 mg oral capsule (2 sources) Start: 12-05-19 take 1 capsule by mouth twice daily Docusate Sodium (Colace) 100 mg capsule Active 100 mg PO TWICE A DAY December 05, 2023 12:00am enalapril maleate 10 mg oral tablet (6 sources) Angiotensin Converting Enzyme Inhibitor Start: 09-23-19 07 take 1 tablet by mouth once daily enalapril (VASOTEC) 10 mg tablet Take 1 tablet by mouth once daily. 09/22/2006 Active ergocalciferol 1.25 mg oral capsule (6 sources) Provitamin D2 Compound ergocalciferol 50,00 0 unit capsule (VITAMIN D2, DRISDOL) Take 50,000 Units by mouth. Active fenofibrate 54 mg oral tablet (20 sources) Peroxisome Proliferator Receptor alpha Agonist Start: 08-21-19 23 take 1 tablet by mouth once daily Fenofibrate 54 mg tablet Active 54 mg PO DAILY August 20, 2022 12:00am Start: 10-23-2000 End: 02-27-2022 Fenofibrate (LOFIBRA) 160 mg tablet 10/23/2000 Active Comment on above: Take 160 mg by mouth once daily. hydroxychloroquine sulfate 200 mg oral tablet (20 sources) Antimalarial, Antirheumatic Agent Start: 10-24-19 hydrOXYchloroQUINE (PLAQUENIL) 200 mg tablet 2 tablets. 10/23/2021 Active Start: 10-23-2021 take 400 mg by mouth once daily Hydroxychloroquine Active 400 MG PO DAILY October 23, 2021 12:00am Comment on above: 2 tablets. metoprolol tartrate 25 mg oral tablet (20 sources) beta-Adrenergic Liban Start: 06-12-2022 metoprolol tartrate, short acting, (LOPRESSOR) 25 mg tablet 06/12/2022 Active Start: 09-09-2018 End: 10-30-2023 Metoprolol Tartrate 25 mg ta blet Discontinued 12.5 mg PO TWICE A DAY February 27, 2022 10:42am June 12, 2022 12:58pm Start: 09-09-2018 End: 06-12-2022 take 12.5 mg by mouth twice daily Metoprolol Tartrate Discontinued 12.5 MG PO TWICE A DAY February 27, 2022 10:42am June 12, 2022 12:58pm MOUNJARO 7.5 mg/0.5 mL pen injector (6 sources) Start: 07-07-2024 MOUNJARO 7.5 m g/0.5 mL pen injector 07/07/2024 Active Nirmatrelvir-Ritonavir (1 source) Start: 03-26-2022 Nirmatrelvir-R itonavir (Paxlovid (Eua)) 300 mg (150 mg x 2)-100 mg tablets,dose pack Active 0 PO .COMPLEX March 26, 2022 12:00am take TWO 150 mg tablets of nirmatrelvir with ONE 100 mg tablet of ritonavir twice daily for 5 days PO Tirzepatide (Mounjaro) 7.5 mg/0.5 mL pen injector (3 sources) Start: 05-26-2023 Tirzepatide (M ounjaro) 7.5 mg/0.5 mL pen injector Active 7.5 mg SC EVERY WEEK May 26, 2023 12:00am Start: 05-26-2023 Tirzepatide (M ounjaro) 7.5 mg/0.5 mL pen injector Active 7.5 MG SC EVERY WEEK May 26, 2023 12:00am Completed/Discontinued Medications Medication Drug Class(es) Dates Sig (Normalized) Sig (Original) acetaminophen 325 mg / HYDROcodone bitartrate 5 mg oral tablet (19 sources) Opioid Agonist Start: 02-16-2024 End: 03-01-2024 Hydrocodone-Acetami nophen 5-325 mg tablet Discontinued 1 - 2 {tbl} PO Q4H as needed for pain 20 5 February 25, 2024 February 29, 2024 1:00am March 01, 2024 1:10am Start: 01-12-2024 End: 02-25-2024 Hydrocodone-Acetaminophen 5- 325 mg tablet Discontinued 1 {tbl} PO EVERY 6 HOURS NEEDED as needed for Pain 10 3 January 12, 2024 February 25, 2024 2:45pm Start: 01-26-2020 End: 02-02-2020 Hydrocodone-Acetaminophen 1 EACH tablet Discontinued 1 - 2 NMA PO EVERY 6 HOURS NEEDED as needed for Pain Score 4-10 40 7 January 26, 2020 February 01, 2020 1:00am February 02, 2020 1:03am Start: 01-26-2020 End: 02-02-2020 Hydrocodone-Acetaminophen Di scontinued 1 - 2 EACH PO EVERY 6 HOURS NEEDED 40 7 January 26, 2020 February 02, 2020 1:03am acetaminophen 325 mg / oxyCODONE hydrochloride 5 mg oral tablet (20 sources) Opioid Agonist Start: 07-03-2020 End: 07-30-2020 Oxycodone-Acetaminophen (Percocet) 5-325 mg tablet Discontinued 1 {tbl} PO Q8H as needed for pain 20 6 July 24, 2020 July 29, 2020 12:00am July 30, 2020 12:01am Start: 06-16-2020 End: 06-21-2020 Oxycodone-Acetaminophen 1 TA BLET tablet Discontinued 1 {tbl} PO 4 TIMES DAILY NEEDED as needed for Pain Score 6-10 27 07June 16, 2020 June 20, 2020 12:00am June 21, 2020 12:03am 20 tabs (twenty) Start: 06-16-2020 End: 06-21-2020 take 1 tablet by mouth four times daily as needed Oxycodone-Acetaminophen Discontinued 1 TABLET PO 4 TIMES DAILY NEEDED 20 5 June 16, 2020 June 21, 2020 12:03am 20 tabs (twenty) [id number] 200 actuat albuterol 0.09 mg/actuat metered dose inhaler (20 sources) beta2-Adrenergic Agonist Start: 11-29-2022 End: 09-02-2024 albuterol HFA (PROVENTIL HFA, VENTOLIN HFA) 90 mcg/actuation inhaler 11/29/2022 09/02/2024 Discontinued Start: 11-29-2022 End: 11-24-2023 Albuterol Sulfate (Ventolin Hfa) 90 mcg/actuation HFA aerosol inhaler Discontinued 2 NMA INHALATION EVERY 4 HOURS NEEDED as needed for Wheezing November 29, 2022 12:00am November 24, 2023 2:05pm Start: 11-29-2022 take 1 puff(s) by in halation every four hours as needed Albuterol Sulfate (Ventolin Hfa) 90 mcg/actuation HFA aerosol inhaler Active 2 PUFF INHALATION EVERY 4 HOURS NEEDED 1 November 29, 2022 12:00am Start: 03-26-2022 End: 06-11-2022 Albuterol Sulfate (Proair Hf a) 90 mcg/actuation HFA aerosol inhaler Discontinued 1 - 2 NMA INHALATION EVERY 6 HOURS as needed for shortness of breath or wheezing 8.March 26, 2022 1:00am June 11, 2022 1:31pm Start: 03-26-2022 End: 06-11-2022 take 1 puff(s) by inhalation every six hours Albuterol Sulfate (Proair Hfa) 90 mcg/actuation HFA aerosol inhaler Discontinued 1 - 2 PUFF INHALATION EVERY 6 HOURS 8.March 26, 2022 1:00am June 11, 2022 1:31pm Start: 11-12-2019 End: 12-21-2019 Albuterol Sulfate (Proair Hf a) 90 mcg/actuation HFA aerosol inhaler Discontinued 1 - 2 NMA INHALATION EVERY 6 HOURS as needed for shortness of breath or wheezing 8.November 12, 2019 12:00am December 21, 2019 2:11pm Start: 11-12-2019 End: 12-21-2019 take 1 puff(s) by inhalation every six hours Albuterol Sulfate (Proair Hfa) 90 mcg/actuation HFA aerosol inhaler Discontinued 1 - 2 PUFF INHALATION EVERY 6 HOURS 8.5 November 12, 2019 12:00am December 21, 2019 2:11pm amLODIPine 5 mg oral tablet (20 sources) Dihydropyridine Calcium Channel Liban Start: 08-11-2018 End: 06-12-2022 take 1 tablet by mouth once daily Amlodipine 5 mg tablet Discontinued 5 mg PO DAILY February 27, 2022 10:41am June 12, 2022 12:58pm take 2 tablets by mouth once delia ly amLODIPine (NORVASC) 2.5 mg tablet Take 5 mg by mouth once daily. Active Comment on above: Take 5 mg by mouth o nce daily. amoxicillin 875 mg / clavulanate 125 mg oral tablet (12 sources) Penicillin-class Antibacterial Start: 11-14-2021 End: 02-20-2022 Amoxicillin-Pot Clavulanate 875-125 mg tablet Discontinued 1 {tbl} PO TWICE A DAY November 14, 2021 12:00am February 20, 2022 5:39pm Start: 11-14-2021 End: 02-20-2022 take 1 tablet by mouth twice daily Amoxicillin-Pot Clavulanate Discontinued 1 TABLET PO TWICE A DAY November 14, 2021 12:00am February 20, 2022 5:39pm atorvastatin 80 mg oral tablet (20 sources) HMG-CoA Reductase Inhibitor Start: 05-19-2020 End: 06-12-2022 take 1 tablet by mouth once daily Atorvastatin 80 mg tablet Discontinued 80 mg PO DAILY February 27, 2022 10:41am June 02, 2022 7:16pm Start: 05-04-2020 End: 05-19-2020 take 1 tablet by mouth once daily Atorvastatin 40 mg tablet Discontinued 40 mg PO DAILY May 04, 2020 1:00am May 19, 2020 1:18am Start: 08-11-2018 End: 10-04-2019 take 1 tablet by mouth once daily Atorvastatin 40 mg tablet Discontinued 40 mg PO DAILY October 09, 2018 12:18pm March 18, 2019 3:51pm Comment on above: Take 40 mg by mouth once daily. azithromycin 250 mg oral tablet (13 sources) Macrolide Antimicrobial Start: 11-17-19 End: 10-13-20 20 Azithromycin 250 mg tablet Discontinued 0 PO .COMPLEX 6 November 17, 2019 12:00am December 21, 2019 2:11pm Take two tablets by mouth on day one then one tablet by mouth on days 2-5 clindamycin 300 mg oral capsule (13 sources) Lincosamide Antibacterial Start: 07-27-19 End: 09-01-19 take 1 capsule by mouth three times daily Clindamycin Hcl 300 mg capsule Discontinued 300 mg PO THREE TIMES A DAY July 26, 2020 12:00am August 31, 2020 10:42am codeine phosphate 2 mg/ml / guaiFENesin 20 mg/ml oral solution (12 sources) Opioid Agonist Start: 11-14-19 End: 02-21-20 take 1 mL by mouth every six hours as needed for cough Codeine-Guaifenesin 10-100 mg/5 mL liquid Discontinued 5 mL PO EVERY 6 HOURS as needed for cough 120 November 13, 2021 12:00am February 20, 2022 5:39pm Start: 11-13-2021 End: 02-20-2022 take 1 mL by mouth every six hours Codeine-Guaifenesin Discontinued 5 ML PO EVERY 6 HOURS 120 November 13, 2021 12:00am February 20, 2022 5:39pm cyclobenzaprine hydrochloride 10 mg oral tablet (13 sources) Muscle Relaxant Start: 05-07-2020 End: 05-16-2020 take 1 tablet by mouth three times daily as needed for muscle spasms Cyclobenzaprine 10 MG tablet Discontinued 10 mg PO THREE TIMES A DAY as needed for Muscle Spasm May 07, 2020 1:00am May 16, 2020 2:59pm dapagliflozin 10 mg oral tablet (20 sources) Sodium-Glucose Cotransporter 2 Inhibitor Start: 06-11-2022 End: 09-02-2024 FARXIGA 10 mg tablet 06/12/2022 09/02/2024 Discontinued Start: 02-20-2022 End: 02-27-2022 take 1 tablet by mouth once daily in the morning Dapagliflozin Propanediol (Farxiga) 10 mg tablet Discontinued 10 mg PO EVERY MORNING February 20, 2022 1:00am February 27, 2022 10:43am diazePAM 2 mg oral tablet (13 sources) Benzodiazepine Start: 01-26-2020 End: 05-04-2020 take 1 tablet by mouth four times daily as needed for dizziness Diazepam 2 MG tablet Discontinued 2 mg PO 4 TIMES DAILY NEEDED as needed for Dizziness January 26, 2020 4:34pm May 04, 2020 12:33pm use for dizziness doxycycline monohydrate 100 mg oral capsule (12 sources) Tetracycline-class Drug Start: 11-29-2022 End: 09-02-2024 doxycycline monohydrate (MONODOX) 100 mg capsule 11/29/2022 09/02/2024 Discontinued 0.5 ml dulaglutide 3 mg/ml auto-injector (20 sources) GLP-1 Receptor Agonist Start: 11-25-2018 End: 05-21-2019 Dulaglutide (Trulicity) 1.5 mg/0.5 mL pen injector Discontinued 1.5 mg SC EVERY WEEK 6.5 90 March 18, 2019 3:45pm May 21, 2019 2:01pm [id number] 0.3 ml EPINEPHrine 1 mg/ml auto-injector (20 sources) alpha-Adrenergic Agonist, beta-Adrenergic Agonist, Catecholamine Start: 01-25-2020 End: 06-11-2022 inject 0.3 mg by intramuscular injection once daily as needed Epinephrine 0.3 MG syringe Discontinued 0.3 mg IM DAILY as needed for allergic reaction January 25, 2020 1:00am June 11, 2022 1:32pm Start: 11-25-2018 End: 05-04-2020 Epinephrine (Epipen 2-Mo) 0 .3 mg/0.3 mL auto-injector Discontinued 0.3 mg IM every 10 to 15 minutes November 25, 2018 12:00am May 04, 2020 12:21pm until response folic acid 1 mg oral tablet (20 sources) Start: 12-27-2020 End: 10-23-2021 take 3 tablets by mouth once daily Folic Acid 1 mg tablet Discontinued 3 mg PO DAILY December 27, 2020 1:21pm October 23, 2021 1:08pm Start: 12-27-2020 End: 10-23-2021 take 3 mg by mouth once daily Folic Acid Discontinued 3 MG PO DAILY December 27, 2020 1:21pm October 23, 2021 1:08pm Start: 03-18-2019 End: 12-27-2020 take 2 tablets by mouth once daily Folic Acid 1 mg tablet Discontinued 2 mg PO DAILY 180 March 21, 2020 5:52pm December 27, 2020 1:21pm Start: 03-18-2019 End: 12-27-2020 take 2 mg by mouth once daily Folic Acid Discontinued 2 MG PO DAILY 180 March 21, 2020 5:52pm December 27, 2020 1:21pm glimepiride 4 mg oral tablet (20 sources) Sulfonylurea Start: 09-16-2022 End: 06-12-2023 take 6 mg by mouth once daily in the morning Glimepiride 4 mg tablet Discontinued 6 mg PO EVERY MORNING September 16, 2022 3:29pm June 12, 2023 6:59am Start: 09-16-2022 End: 06-12-2023 take 6 mg by mouth once daily in the morning Glimepiride Discontinued 6 MG PO EVERY MORNING September 16, 2022 3:29pm June 12, 2023 6:59am Start: 12-21-2019 End: 09-16-2022 take 1 tablet by mouth once daily in the morning Glimepiride 4 mg tablet Discontinued 4 mg PO EVERY MORNING February 27, 2022 10:42am June 04, 2022 6:28pm Start: 03-18-2019 End: 12-21-2019 take 1 tablet by mouth once daily in the morning Glimepiride 2 mg tablet Discontinued 2 mg PO EVERY MORNING October 04, 2019 10:28am December 21, 2019 2:26pm Start: 08-11-2018 End: 09-02-2024 take 1 tablet by mouth once daily in the morning Glimepiride 4 mg tablet Discontinued 4 mg PO EVERY MORNING October 09, 2018 12:18pm March 18, 2019 3:51pm Comment on above: Take 4 mg by mouth d aily with breakfast. hydroCHLOROthiazide 25 mg / metoprolol tartrate 100 mg oral tablet (2 sources) Thiazide Diuretic, beta-Adrenergic Liban End: take 1 tablet by mouth twice daily Metoprolol-Hydrochl orothiazide 100-25 mg per tablet Take 1 tablet by mouth twice daily. 0 06/17/2022 Discontinued Comment on above: Take 1 tablet by elmer twice daily. icosapent ethyl 1000 mg oral capsule (20 sources) Start: End: 021 take 4 capsules by mouth twice daily Icosapent Ethyl 1 GM capsule Discontinued 4 g PO TWICE A DAY January 25, 2020 1:00am May 04, 2020 12:33pm Start: 01-25-2020 End: 05-04-2020 take 4 g by mouth twice daily Icosapent Ethyl Disconti nued 4 GM PO TWICE A DAY January 25, 2020 1:00am May 04, 2020 12:33pm Start: 01-07-2019 End: 12-08-2022 Icosapent Ethyl (Vascepa) 1 gram capsule Discontinued 2 g PO TWICE A DAY 120 January 29, 2022 5:01pm June 12, 2022 12:58pm Comment on above: 2 cap(s) 3 ml insulin glargine 100 unt/ml pen injector (13 sources) Insulin Analog Start: 2019 End: 2020 Insulin Glargine 100 UNITS/ML insulin pen Discontinued 15 - 20 U SC DAILY January 26, 2020 1:00am May 04, 2020 12:37pm iv contrast (will be provided with radiology test) (1 source) Start: 2022 End: 2022 inject 1 dose intravenously once iv contrast (will be provided with radiology test) MRI Brain Inject, intravenously, once for 1 dose.No IV access, insert saline lock prior to beginning of sedation, infusion, injection of imaging exam.Discontinue saline lock post exam. If Pt. has a central line or IVAD, may access for administration according to line specific nursing protocol.Once exam is complete flush line and de-access according to line specific nursing protocol in the MR contrast administration guidelines link 1 Each 0 12/02/2022 12/03/2022 Comment on above: MRI Brain Inject, in travenously, once for 1 dose.No IV access, insert saline lock prior to beginning of sedation, infusion, injection of imaging exam.Discontinue saline lock post exam. If Pt. has a central line or IVAD, may access for administration according to line specific nursing protocol.Once exam is complete flush line and de-access according to line specific nursing protocol in the MR contrast administration guidelines link levETIRAcetam 500 mg oral tablet (13 sources) Start: 2022 End: 2022 take 1 tablet by mouth twice daily Levetiracetam (Keppra) 500 mg tablet Discontinued 500 mg PO TWICE A DAY June 04, 2022 12:00am September 16, 2022 3:11pm Comment on above: Take by mouth. linagliptin 5 mg oral tablet (20 sources) Dipeptidyl Peptidase 4 Inhibitor Start: 2018 End: 2022 take 1 tablet by mouth once daily Linagliptin (Tradjenta) 5 mg tablet Discontinued 5 mg PO DAILY September 21, 2020 3:58pm December 27, 2020 1:34pm Comment on above: Take by mouth. losartan potassium 25 mg oral tablet (20 sources) Angiotensin 2 Receptor Liban Start: 2018 End: 2022 Losartan 25 mg tablet Discontinued 37.5 mg PO DAILY 135 February 27, 2022 10:42am June 04, 2022 6:28pm Start: 10-09-2018 End: 06-12-2022 take 37.5 mg by mouth once daily Losartan Discontinued 37.5 MG PO DAILY 135 February 27, 2022 10:42am June 04, 2022 6:28pm Start: 08-11-2018 End: 10-09-2018 Losartan 25 mg tablet Discon tinued 40 mg PO DAILY October 09, 2018 12:18pm October 09, 2018 12:43pm Start: 08-11-2018 End: 10-09-2018 take 40 mg by mouth once daily Losartan Discontinued 4 0 MG PO DAILY October 09, 2018 12:18pm October 09, 2018 12:43pm take 1 tablet by elmer th once daily losartan (COZAAR) 25 mg tablet Take 25 mg by mouth once daily. Active Comment on above: Take 25 mg by mouth once daily. meloxicam 15 mg oral tablet (12 sources) Nonsteroidal Anti-inflammatory Drug Start: 10-24-19 End: 06-13-19 take 1 tablet by mouth once daily Meloxicam 15 mg tablet Discontinued 15 mg PO DAILY October 23, 2021 12:00am June 12, 2022 9:30am metFORMIN hydrochloride 1000 mg oral tablet (20 sources) Biguanide Start: 08-12-19 End: 09-03-19 take 1 tablet by mouth twice daily Metformin 1,000 mg tablet Discontinued 1000 mg PO TWICE A DAY February 27, 2022 10:42am June 04, 2022 6:28pm Comment on above: Take 1,000 mg by elmer th twice daily with meals. 0.8 ml methotrexate 25 mg/ml prefilled syringe (20 sources) Folate Analog Metabolic Inhibitor Start: 07-21-19 End: 10-24-19 Methotrexate (Pf) 20 mg/0.8 mL syringe Discontinued 20 mg SC EVERY WEEK July 20, 2021 12:00am October 23, 2021 1:08pm Start: 12-27-2020 End: 07-20-2021 Methotrexate Sodium 2.5 mg t ablet Discontinued 15 mg PO EVERY WEEK December 27, 2020 1:20pm July 20, 2021 1:26pm Start: 06-29-2020 End: 12-27-2020 Methotrexate Sodium 2.5 MG t ablet Discontinued 5 {tbl} PO EVERY WEEK June 29, 2020 12:00am December 27, 2020 1:21pm Start: 06-29-2020 End: 07-20-2021 take 15 mg by mouth every week Methotrexate Sodium Dis continued 15 MG PO EVERY WEEK December 27, 2020 1:20pm July 20, 2021 1:26pm Start: 05-05-2020 End: 06-14-2020 take 5 tablets by mouth every week Methotrexate Sodium 2.5 MG tablet Discontinued 12.5 mg PO Q7D May 05, 2020 1:00am June 14, 2020 1:58pm Start: 05-05-2020 End: 06-14-2020 take 12.5 mg by mouth every week Methotrexate Sodium Discontinued 12.5 MG PO Q7D May 05, 2020 1:00am June 14, 2020 1:58pm Start: 05-23-2019 End: 01-26-2020 take 5 tablets by mouth once daily Methotrexate Sodium 2.5 MG tablet Discontinued 12.5 mg PO January 25, 2020 6:40pm January 26, 2020 4:11pm takes 5 tabs one day a week Start: 05-23-2019 End: 01-26-2020 take 5 tablets by mouth once daily Methotrexate Sodium Discontinued 12.5 MG PO January 25, 2020 6:40pm January 26, 2020 4:11pm takes 5 tabs one day a week Start: 03-18-2019 End: 05-23-2019 take 5 tablets by mouth once daily Methotrexate Sodium 7.5 mg tablet Discontinued 7.5 mg PO EVERY WEEK 13 90 May 21, 2019 2:26pm May 23, 2019 8:12pm takes 5 tabs one day a week omeprazole 20 mg delayed release oral tablet (6 sources) Proton Pump Inhibitor take 1 tablet by mouth once daily Omeprazole Magnesium 20 mg tablet Take 20 mg by mouth once daily. 0 Active Comment on above: Take 20 mg by mouth once daily. oxyCODONE hydrochloride 5 mg oral tablet (7 sources) Opioid Agonist Start: End: take 1 tablet by mouth every six hours as needed for pain Oxycodone 5 mg tablet Discontinued 5 mg PO EVERY 6 HOURS as needed for pain 14 3 December 05, 2023 February 25, 2024 2:45pm Start: 10-23-2022 End: 06-11-2023 take 1 capsule by mouth every six hours as needed for pain Oxycodone 5 mg capsule Discontinued 5 mg PO EVERY 6 HOURS as needed for pain 20 4 October 23, 2022 June 11, 2023 9:49am predniSONE 20 mg oral tablet (20 sources) Start: 11-29-2022 End: 09-02-2024 predniSONE (DELTASONE) 20 mg tablet 11/29/2022 09/02/2024 Discontinued Start: 11-29-2022 End: 06-11-2023 take 3 tablets by mouth once daily Prednisone 20 mg tablet Discontinued 60 mg PO DAILY November 29, 2022 12:00am June 11, 2023 9:49am Start: 11-29-2022 End: 06-11-2023 take 60 mg by mouth once daily Prednisone Discontinued 60 MG PO DAILY November 29, 2022 12:00am June 11, 2023 9:49am Start: 10-23-2022 End: 06-11-2023 take 2 tablets by mouth once daily Prednisone 20 mg tablet Discontinued 40 mg PO DAILY October 23, 2022 12:00am June 11, 2023 9:49am Start: 10-23-2022 End: 06-11-2023 take 40 mg by mouth once daily Prednisone Discontinued 40 MG PO DAILY October 23, 2022 12:00am June 11, 2023 9:49am Start: 01-26-2020 End: 05-04-2020 take 2 tablets by mouth once daily at mealtime Prednisone 20 MG tablet Discontinued 40 mg PO DAILY January 26, 2020 1:00am May 04, 2020 12:20pm With Food-start on 01/27/20 Start: 01-26-2020 End: 05-04-2020 take 40 mg by mouth once daily at mealtime Prednisone Discontinued 40 MG PO DAILY January 26, 2020 1:00am May 04, 2020 12:20pm With Food-start on 01/27/20 Start: 01-12-2020 End: 01-18-2020 take 3 tablets by mouth once daily at mealtime Prednisone 20 MG tablet Discontinued 60 mg PO DAILY 25 08January 12, 2020 1:00am January 17, 2020 1:00am January 18, 2020 1:02am With food Start: 01-12-2020 End: 01-18-2020 take 60 mg by mouth once daily at mealtime Prednisone Discontinued 60 MG PO DAILY 25 08January 12, 2020 1:00am January 18, 2020 1:02am With food Start: 11-24-2019 End: 12-21-2019 Prednisone 10 mg tablet Discontinued 0 PO daily November 24, 2019 12:00am December 21, 2019 2:12pm 3 tabs for 4 days, then 2 tabs for 4 days, then 1 tabs for 4 days QDAY; administer with food or milk Start: 11-17-2019 End: 12-21-2019 take 2 tablets by mouth once daily at mealtime Prednisone 20 mg tablet Discontinued 40 mg PO daily November 17, 2019 12:00December 21, 2019 2:12pm administer with food or milk Start: 11-17-2019 End: 12-21-2019 take 40 mg by mouth once daily at mealtime Prednisone Discontinued 40 MG PO daily November 17, 2019 12:00am December 21, 2019 2:12pm administer with food or milk Start: 11-21-2018 End: 03-18-2019 take 3 tablets by mouth once daily Prednisone 20 MG tablet Discontinued 60 mg PO DAILY November 21, 2018 12:00am March 18, 2019 3:26pm Start: 11-21-2018 End: 03-18-2019 take 60 mg by mouth once daily Prednisone Discontinued 60 MG PO DAILY November 21, 2018 12:00am March 18, 2019 3:26pm 0.25 mg, 0.5 mg dose 1.5 ml semaglutide 1.34 mg/ml pen injector (20 sources) Start: 07-20-2021 End: 02-20-2022 Semaglutide (Ozempic) 0.25 m g or 0.5 mg(2 mg/1.5 mL) pen injector Discontinued 1 mg SC EVERY WEEK 10.4 90 October 23, 2021 1:27pm February 20, 2022 5:39pm Start: 12-27-2020 End: 07-20-2021 Semaglutide (Ozempic) 0.25 m g or 0.5 mg(2 mg/1.5 mL) pen injector Discontinued 0.5 mg SC EVERY WEEK 5.2 90 July 02, 2021 1:58pm July 20, 2021 1:35pm for 4 doses Start: 08-31-2020 End: 12-27-2020 Semaglutide (Ozempic) 0.25 m g or 0.5 mg(2 mg/1.5 mL) pen injector Discontinued 0.25 mg SC EVERY WEEK 1.5 August 31, 2020 12:00am December 27, 2020 1:36pm for 4 doses SUMAtriptan 25 mg oral tablet (13 sources) Serotonin-1b and Serotonin-1d Receptor Agonist Start: 05-21-2019 End: 05-16-2020 take 1 tablet by mouth every two hours Sumatriptan Succinate 25 mg tablet Discontinued 0 PO .COMPLEX May 21, 2019 12:00am May 16, 2020 2:59pm take 1 tab at onset of headache; if no relief may repeat 1 tab after at least 2 hrs; max = 4 tabs/24 hr PO valACYclovir 1000 mg oral tablet (13 sources) Herpesvirus Nucleoside Analog DNA Polymerase Inhibitor, Herpes Simplex Virus Nucleoside Analog DNA Polymerase Inhibitor, Herpes Zoster Virus Nucleoside Analog DNA Polymerase Inhibitor Start: 01-26-2020 End: 05-04-2020 take 1 tablet by mouth three times daily Valacyclovir Hcl (Valtrex) 1,000 MG tablet Discontinued 1000 mg PO THREE TIMES A DAY January 26, 2020 1:00am May 04, 2020 12:33pm Problems Active Problems Problem Classification Problem Date Documented Da te Episodic/Chronic Acute cerebrovascular disease (14 sources) Cerebrovascular accident; Translations: [Cerebral infarction, unspecified] 05-16-2019 Chronic Allergic reactions (13 sources) Urticaria; Translations: [Urticaria, unspecified] 11-22-2018 Episodic Cancer of prostate (4 sources) Malignant tumor of prostate; Translations: [Malignant neoplasm of prostate] Onset: 07-31-2024 12-05-2023 Chronic Cardiac dysrhythmias (7 sources) Tachycardia, unspecified; Translations: [Sinus tachycardia] Onset: 05-02-2018 11-29-2022 Episodic Chronic obstructive pulmonary disease and bronchiectasis (5 sources) Fetid chronic bronchitis; Translations: [Mucopurulent chronic bronchitis] 11-29-2022 Chronic Diabetes mellitus with complications (1 source) Type 2 diabetes mellitus with hyperglycemia; Translations: [Type 2 diabetes mellitus with hyperglycemia] Onset: 09-23-2017 Chronic Diabetes mellitus without complication (20 sources) Type 2 diabetes mellitus without complications; Translations: [Type 2 diabetes mellitus] Onset: 12-09-2017 Chronic Diseases of white blood cells (20 sources) Elevated white blood cell count, unspecified; Translations: [Lymphocytosis] Onset: 09-23-2017 06-29-2020 Chronic Disorders of lipid metabolism (18 sources) Mixed hyperlipidemia; Translations: [Hyperlipidemia] Onset: 09-23-2017 05-04-2020 Chronic E Codes: Fall (2 sources) Fall; Translations: [Unspecified fall, initial encounter] 01-20-2024 Episodic Essential hypertension (20 sources) Essential (primary) hypertension; Translations: [Essential hypertension] Onset: 09-23-2017 Chronic Comment on above: CONTROLLED ON MED Gastrointestinal hemorrhage (8 sources) Hematochezia; Translations: [Melena] 09-16-2022 Episodic Comment on above: Internal hemorrhoid Headache; including migraine (1 source) Headache; Translations: [Nonintractable headache, unspecified chronicity pattern, unspecified headache type] Episodic Heart valve disorders (14 sources) Nonrheumatic mitral (valve) insufficiency; Translations: [Non-rheumatic mitral regurgitation ] Onset: 12-09-2017 05-16-2019 Chronic Immunizations and screening for infectious disease (14 sources) Autoantibody level - finding; Translations: [Raised antibody titer] 06-29-2020 Episodic Influenza (1 source) Influenza due to unidentified influenza virus with other respiratory manifestations; Translations: [Flu due to unidentified influenza virus w oth resp manifest] Onset: 05-02-2018 Episodic Malaise and fatigue (13 sources) Malaise and fatigue; Translations: [Other malaise] 07-06-2021 Episodic Nausea and vomiting (2 sources) Nausea; Translations: [Nausea] Onset: 05-02-2018 Episodic Nutritional deficiencies (1 source) Vitamin D deficiency, unspecified; Translations: [Vitamin D deficiency, unspecified] Onset: 09-23-2017 Chronic Occlusion or stenosis of precerebral arteries (10 sources) Occlusion and stenosis of right carotid artery; Translations: [Occlusion and stenosis of bilateral carotid arteries] Onset: 09-23-2017 07-09-2022 Chronic Osteoarthritis (13 sources) Osteoarthritis; Translations: [Unspecified osteoarthritis, unspecified site] 12-27-2020 Chronic Other and ill-defined cerebrovascular disease (3 sources) Cerebral arterial aneurysm; Translations: [Cerebral aneurysm, nonruptured] Chronic Other and ill-defined cerebrovascular disease (2 sources) Intracranial aneurysm; Translations: [Cerebral aneurysm, nonruptured] Chronic Other and ill-defined cerebrovascular disease (4 sources) Cerebral aneurysm, nonruptured; Translations: [Cerebral aneurysm, nonruptured] Onset: 08-10-2024 Chronic Other and ill-defined cerebrovascular disease (1 source) Aneurysm of anterior communicating artery; Translations: [Cerebral aneurysm, nonruptured] 09-02-2024 Chronic Other and unspecified benign neoplasm (13 sources) Lipoma of forehead; Translations: [Benign lipomatous neoplasm of skin and subcutaneous tissue of head, face and neck] 05-16-2021 Episodic Comment on above: 2.3 cm submuscular l ipoma right medial forehead by the eyebrow Other circulatory disease (2 sources) Disorder of arteries and arterioles, unspecified; Translations: [Disorder of arteries and arterioles, unspecified] Onset: 12-09-2017 Chronic Other circulatory disease (13 sources) History of transient ischemic attack; Translations: [Personal history of transient ischemic attack (TIA), and cerebral infarction without residual deficits] 07-05-2020 Episodic Other circulatory disease (2 sources) Personal history of transient ischemic attack (TIA), and cerebral infarction without residual deficits; Translations: [Personal history of transient ischemic attack (TIA), and cerebral infarction without residual deficits] 06-12-2022 Episodic Other connective tissue disease (13 sources) Weakness of right facial muscle; Translations: [Facial weakness] 01-25-2020 Episodic Other connective tissue disease (5 sources) Weakness of hand; Translations: [Other symptoms and signs involving the musculoskeletal system] 06-02-2022 Episodic Other connective tissue disease (3 sources) Other symptoms and signs involving the musculoskeletal system; Translations: [Muscle weakness (generalized)] 06-02-2022 Episodic Other connective tissue disease (4 sources) Weakness of right hand; Translations: [Other symptoms and signs involving the musculoskeletal system] 06-12-2022 Episodic Other ear and sense organ disorders (14 sources) Asymmetrical sensorineural hearing loss; Translations: [Sensorineural hearing loss, bilateral] Onset: 11-08-2022 11-08-2022 Chronic Other ear and sense organ disorders (1 source) Bilateral hearing loss; Translations: [Sensorineural hearing loss, unilateral, right ear, with restricted hearing on the contralateral side] 12-02-2022 Chronic Other fractures (2 sources) Fracture of inferior pubic ramus; Translations: [Other specified fracture of left pubis, initial encounter for closed fracture] 02-24-2024 Episodic Other gastrointestinal disorders (13 sources) Diarrhea; Translations: [Diarrhea, unspecified] 07-02-2021 Episodic Other gastrointestinal disorders (1 source) Diarrhea, unspecified; Translations: [Diarrhea] Episodic Other lower respiratory disease (14 sources) Cough; Translations: [Cough] Episodic Other nervous system disorders (13 sources) Girard's palsy; 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] 01-13-2020 Episodic Other non-traumatic joint disorders (2 sources) Hip pain; Translations: [Pain in left hip] 02-25-2024 Episodic Other nutritional; endocrine; and metabolic disorders (5 sources) History of diabetes mellitus type 2; Translations: [Personal history of other endocrine, nutritional and metabolic disease] 10-31-2022 Episodic Other skin disorders (13 sources) Lump on face; Translations: [Localized swelling, mass and lump, head] 06-24-2020 Episodic Comment on above: 2.3 cm soft tissue m ass right medial forehead by the eyebrow Other upper respiratory disease (5 sources) Acute bronchospasm; Translations: [Acute bronchospasm] 11-29-2022 Episodic Other upper respiratory infections (6 sources) Chronic sinusitis; Translations: [Chronic sinusitis, unspecified] 07-09-2022 Chronic Other upper respiratory infections (20 sources) Sore throat symptom; Translations: [Acute pharyngitis, unspecified] Episodic Pneumonia (except that caused by tuberculosis or sexually transmitted disease) (13 sources) Pneumonia; Translations: [Pneumonia, unspecified organism] 05-16-2019 Episodic Residual codes; unclassified (4 sources) Pain, unspecified; Translations: [Generalized pain] 03-26-2022 Episodic Residual codes; unclassified (1 source) Transient alteration of awareness; Translations: [Transient alteration of awareness] 10-17-2022 Episodic Residual codes; unclassified (1 source) Family history of aneurysm of artery; Translations: [Family history of ischemic heart disease and other diseases of the circulatory system] 09-02-2024 Episodic Residual codes; unclassified (1 source) Family history of ischemic heart disease and other diseases of the circulatory system; Translations: [Family history of cerebral aneurysm] Onset: 09-02-2024 Episodic Rheumatoid arthritis and related disease (14 sources) Rheumatoid arthritis; Translations: [Rheumatoid arthritis, unspecified] Chronic Skin and subcutaneous tissue infections (13 sources) Abscess of groin; Translations: [Cutaneous abscess of groin] 05-16-2021 Episodic Spondylosis; intervertebral disc disorders; other back problems (20 sources) Low back pain; Translations: [Low back pain] 05-08-2020 Episodic Transient cerebral ischemia (20 sources) Transient cerebral ischemia; Translations: [Transient cerebral ischemic attack, unspecified] Onset: 09-23-2017 05-17-2019 Chronic Viral infection (13 sources) Viral disease; Translations: [Viral infection, unspecified] 07-06-2021 Episodic Past or Other Problems Problem Classification Problem Date Documented Da te Episodic/Chronic Other circulatory disease (1 source) Personal history of other diseases of the circulatory system; Translations: [Personal history of other diseases of the circulatory system] Onset: 12-09-2017 Episodic Other fractures (1 source) Unspecified fracture of left pubis, initial encounter for closed fracture; Translations: [Unspecified fracture of left pubis, initial encounter for closed fracture] Onset: 03-19-2024 Episodic Other nervous system disorders (1 source) Slurred speech; Translations: [Slurred speech] Onset: 09-23-2017 Episodic Other non-traumatic joint disorders (1 source) Pain in right hip; Translations: [Pain in right hip] Onset: 05-12-2024 Episodic Other non-traumatic joint disorders (1 source) Pain in left hip; Translations: [Pain in left hip] Onset: 04-01-2024 Episodic Other screening for suspected conditions (not mental disorders or infectious disease) (20 sources) Patient encounter status; Translations: [Encounter for screening for malignant neoplasm of prostate] Onset: 11-13-2023 05-16-2021 Episodic Pancreatic disorders (not diabetes) (20 sources) Disorder of pancreas; Translations: [Disease of pancreas, unspecified] Onset: 09-20-2008 09-20-2008 Episodic Superficial injury; contusion (3 sources) Contusion of chest; Translations: [Contusion of unspecified front wall of thorax, initial encounter] Onset: 02-03-2024 01-20-2024 Episodic Results Test Name Value Interpretation Reference Range Facility BRIEF OP NOTon 10-25-2024 BRIEF OP NOT HNO ID: [id number] Author: RANDALL RODRÍGUEZ MD Service: Radiology Author Type: Physician Type: Brief Op Note Filed: 10/25/2024 14:30 Note Text: BRIEF OP/PROCEDURE NOTE NEURO INTERVENTIONAL PROCEDURE DATE: October 25, 2024 LOG ID: [id number] Surgery/Procedure Date: 10/25/2024 Incision/Procedure Start Time: 1:48 PM Incision Close/Procedure End Time: 2:24 PM Anesthesia: Procedural Sedation PRIMARY PROCEDURALIST: Randall Rodríguez M.D. CHIEF RESERVOIR ENGINEERING(S): Bobby Hope CNP CASE STATUS: Outpatient/Elective PROCEDURE: Diagnostic CervicoCerebral Angiography Indications: Cerebral aneurysm Access Site: right radial artery PRE-PROCEDURE DIAGNOSIS: Cerebral aneurysm POST-PROCEDURE DIAGNOSIS: Cerebral aneurysm FINDINGS: Anterior communicating region small broad based saccular aneurysm, measuring 2.5 x 2.4 x 2.1 mm with a 2.6 mm wide neck. No other aneurysm identified. Mild to moderate diffuse extra and intracranial atherosclerotic disease without flow limiting stenosis ESTIMATED BLOOD LOSS: Scant COMPLICATIONS: None IMPLANTS: * No implants in log * RADIATION DOSE: Exceeded 5 Gy - No SPECIMENS: Not Applicable Patient was accompanied to the next level of care by a licensed practitioner from the surgical team pending completion of this brief op note (or operative note) SIGNATURE: Randall Rodríguez MD PATIENT NAME: Temo Wilkes DATE: October 25, 2024 TIME: 2:26 PM [facility] HISTORY PHYSICALon HISTORY PHYSICAL HNO ID: [id number] Author: ELADIO HOPE APRN.CNP Service: Neuroendovascular Intervention Author Type: Nurse Practitioner Type: H&P Filed: 10/25/2024 13:35 Note Text: RADIOLOGY PROCEDURAL SEDATION HISTORY AND PHYSICAL EXAM SERVICE DATE: 10/25/2024 SERVICE TIME: 1325 Subjective HPI: This is a 64 year old male who presents with Cerebral aneurysm PROCEDURE SCHEDULED: Procedure(s): NON-SELECTIVE CATH PLACEMENT THORACIC AORTA W/ ANGIOGRAPHY OF THE EXTRACRANIAL CAROTID VERTEBRAL AND/OR INTRACRANIAL VESSELS BILATERAL W/ ANGIOGRAPHY OF THE CERVICOCEREBRAL ARCH (Pending) RADIOLOGY ORDER PLACED: PAST ANESTHESIA HISTORY: No history of adverse event PAST MEDICAL HISTORY Diagnosis Date Diabetes mellitus (HCC) Hyperlipemia Mixed hyperlipidemia PAST SURGICAL HISTORY Procedure Laterality Date PROSTATE SURGERY HX 11/2023 Prior to Admission medications as of 10/25/24 1234 Medication Sig Last Dose Taking enalapril (VASOTEC) 10 mg tablet Take 1 tablet by mouth once daily. 10/25/2024 at 9:00 AM Yes Fenofibrate (LOFIBRA) 160 mg tablet 10/25/2024 at 9:00 AM Yes MOUNJARO 7.5 mg/0.5 mL pen injector 10/24/2024 Yes clopidogrel (PLAVIX) 75 mg tablet Take 75 mg by mouth once daily. 10/25/2024 at 9:00 AM Yes hydrOXYchloroQUINE (PLAQUENIL) 200 mg tablet 2 tablets. 10/25/2024 at 9:00 AM Yes metoprolol tartrate, short acting, (LOPRESSOR) 25 mg tablet 10/25/2024 at 9:00 AM Yes atorvastatin (LIPITOR) 40 mg tablet Take 40 mg by mouth once daily. 10/25/2024 at 9:00 AM Yes losartan (COZAAR) 25 mg tablet Take 25 mg by mouth once daily. 10/25/2024 at 9:00 AM Yes amLODIPine (NORVASC) 2.5 mg tablet Take 5 mg by mouth once daily. 10/25/2024 at 9:00 AM Yes ergocalciferol 50,000 unit capsule (VITAMIN D2, DRISDOL) Take 50,000 Units by mouth. ALLERGIES Allergen Reactions Everardo Seed Hives, Itching, Rash, Shortness of Breath, Swelling Pneumovax 23 [Pneum* I don't have a spleen Objective PHYSICAL EXAM: The remainder of the physical exam is noncontributory. AIRWAY: LUNGS: Lungs clear to auscultation, Good diaphragmatic excursion CARDIAC: Normal S1 and S2; no rubs, murmurs, or gallops Assessment/Plan ASA Class: Provisional Diagnosis/Treatment Plan: Cerebral aneurysm--> Diagnostic cerebral angiogram SIGNATURE: Eladio Hope APRN.CNP PATIENT NAME: Temo Wilkes DATE: October 25, 2024 TIME: 1:09 PM [facility] IR 3D ANGIO RECONSTRUCTIONon 10-25-2024 IR 3D ANGIO RECONSTRUCTION * * *Final Report* * * DATE OF EXAM: Oct 25 2024 2:37PM [id number] - IR 3D ANGIO RECONSTRUCTION / PROCEDURE REASON: Cerebral aneurysm (HCC) [I67.1] * * * * Physician Interpretation * * * * Endovascular Surgical Neuroradiology Report CLINICAL HISTORY: This patient is a 64 year-old male who presented with transient neurologic symptoms. Noninvasive imaging suggestive of an intracranial aneurysm with some suggestion of growth over years on follow-up. A diagnostic cerebral angiogram was requested to evaluate the cerebral vasculature. PROCEDURE: 1. Ultrasound-guided right radial artery access. 2. Diagnostic cervicocerebral angiogram. INFORMED CONSENT: The procedural risks, benefits, alternatives and complications were discussed with the patient. All questions were answered and they requested that we proceed. PRE-PROCEDURAL DIAGNOSIS: Cerebral Aneurysm POST-PROCEDURAL DIAGNOSIS: Same. TIME OUT TIME: 1347 PROCEDURE START TIME: 1347 PROCEDURE END TIME: 142 ATTENDING: Randall Rodríguez MD CHIEF RESERVOIR ENGINEERING: Eladio Hope CNP The procedure was performed by the attending, with an pathology assistant. ANESTHESIA: Conscious sedation with 50 mcg fentanyl and 1 mg Versed were administered by IV with continuous monitoring by a dedicated nurse. Pulsed oximetry, cardiopulmonary monitoring and electrocardiography was performed throughout the procedure. Intra-service time (monitoring for moderate sedation) (starts with administration of agent, ends when continuous [id number] time ends): 36 minutes. Patient monitoring: The attending physician personally supervised and directed an independent trained observer who assisted in monitoring the patient?s level of consciousness and physiological status throughout the procedure. ANGIOGRAPHY MATERIALS: Diagnostic catheter: 5 [place] Beatty 2 Catheter Guidewire: 0.035 angled-tapered Glidewire. Fluoroscopic Radiation Summary: Plane A, Air Kerma: 375.1 mGy Plane B, Air Kerma: 127.7 mGy Dose Area Product (DAP): Fluoro time: 7:54 min:sec Radiation dose exceed 5 Gy: No If radiation dose exceeded 5 Gy, was counseling and instructional brochure provided:N/A Contrast (intra-arterial): 118 ml of OMNIPAQUE 300 TECHNIQUE: After veronika discussion of the risks and benefits of diagnostic cerebral angiography, informed consent was obtained. The patient was brought to the angiography suite and placed in supine position. After hemodynamic monitoring was established, Conscious sedation was administered by our nursing staff. The right wrist was prepped and draped in the usual standard fashion. The right radial artery access site was localized 2 cm proximal to the radial styloid process. The artery was assessed using ultrasound: Right radial artery: Normal and patent. The right radial artery was found to be sufficient for transradial access. A permanent image of the artery was archived. 1% lidocaine was administered for local anesthesia. Vascular access was then obtained in the artery utilizing a standard 4 Fr micropuncture set, under direct ultrasound visualization. A 5 [place] slender sheath was inserted and connected to heparinized saline flush. A vasodilatory medication infusion consisting of nitroglycerine, verapamil, and heparin was administered intra-arterially through the radial sheath over 2 minutes. A standard diagnostic catheter and wire were then fluoroscopically advanced for selective catheterization of the following vessels: Brachiocephalic vascular family: Right common carotid artery, cervical AP and lateral views. Right internal carotid artery, intracranial views. Standard AP, lateral and oblique views. 3D rotational angiography Right subclavian (to visualize vertebral) artery, intracranial views. Standard AP, lateral, oblique views. Left carotid vascular family: Left common carotid artery, cervical AP and lateral views. Left common carotid artery, intracranial views. Standard AP, lateral and oblique views. Left subclavian vascular family: Left subclavian (to visualize vertebral) artery intracranial views. Standard AP, lateral views. Angiographic imaging was performed at each selected vessel with views as described above. 3D rotational angiography was obtained with the catheter placed in the right internal carotid artery. Images were sent to separate work station for reconstruction, volume rendering, post-processing and interpretation. After no further views and images were determined to be necessary, the procedure was terminated. All catheters and wires were removed from the patient. Hemostasis at the right wrist was obtained by TR band. The patient was transferred to the recovery room in stable condition. FINDINGS: RIGHT COMMON CAROTID ARTERY INJECTION (cervical): DSA images of the right anterior cervical circulation demonstrate normal course and caliber of the distal common carotid artery. The bifurcation is a (more content not included)... Normal [facility] IR NETTIE CCA H/N BILAT W/WO AR Adalberto 10-25-2024 IR NETTIE CCA H/N BILAT W/WO ARCH * * *Final Report* * * DATE OF EXAM: Oct 25 2024 2:37PM [facility]66 - IR NETTIE CCA H/N BILAT W/WO ARCH / PROCEDURE REASON: Cerebral aneurysm (HCC) [I67.1] * * * * Physician Interpretation * * * * Endovascular Surgical Neuroradiology Report CLINICAL HISTORY: This patient is a 64 year-old male who presented with transient neurologic symptoms. Noninvasive imaging suggestive of an intracranial aneurysm with some suggestion of growth over years on follow-up. A diagnostic cerebral angiogram was requested to evaluate the cerebral vasculature. PROCEDURE: 1. Ultrasound-guided right radial artery access. 2. Diagnostic cervicocerebral angiogram. INFORMED CONSENT: The procedural risks, benefits, alternatives and complications were discussed with the patient. All questions were answered and they requested that we proceed. PRE-PROCEDURAL DIAGNOSIS: Cerebral Aneurysm POST-PROCEDURAL DIAGNOSIS: Same. TIME OUT TIME: 1347 PROCEDURE START TIME: 1347 PROCEDURE END TIME: 1423 ATTENDING: Randall Rodríguez MD CHIEF RESERVOIR ENGINEERING: Eladio Hope CNP The procedure was performed by the attending, with an pathology assistant. ANESTHESIA: Conscious sedation with 50 mcg fentanyl and 1 mg Versed were administered by IV with continuous monitoring by a dedicated nurse. Pulsed oximetry, cardiopulmonary monitoring and electrocardiography was performed throughout the procedure. Intra-service time (monitoring for moderate sedation) (starts with administration of agent, ends when continuous [id number] time ends): 36 minutes. Patient monitoring: The attending physician personally supervised and directed an independent trained observer who assisted in monitoring the patient?s level of consciousness and physiological status throughout the procedure. ANGIOGRAPHY MATERIALS: Diagnostic catheter: 5 [place] Beatty 2 Catheter Guidewire: 0.035 angled-tapered Glidewire. Fluoroscopic Radiation Summary: Plane A, Air Kerma: 375.1 mGy Plane B, Air Kerma: 127.7 mGy Dose Area Product (DAP): Fluoro time: 7:54 min:sec Radiation dose exceed 5 Gy: No If radiation dose exceeded 5 Gy, was counseling and instructional brochure provided:N/A Contrast (intra-arterial): 118 ml of OMNIPAQUE 300 TECHNIQUE: After veronika discussion of the risks and benefits of diagnostic cerebral angiography, informed consent was obtained. The patient was brought to the angiography suite and placed in supine position. After hemodynamic monitoring was established, Conscious sedation was administered by our nursing staff. The right wrist was prepped and draped in the usual standard fashion. The right radial artery access site was localized 2 cm proximal to the radial styloid process. The artery was assessed using ultrasound: Right radial artery: Normal and patent. The right radial artery was found to be sufficient for transradial access. A permanent image of the artery was archived. 1% lidocaine was administered for local anesthesia. Vascular access was then obtained in the artery utilizing a standard 4 Fr micropuncture set, under direct ultrasound visualization. A 5 [place] slender sheath was inserted and connected to heparinized saline flush. A vasodilatory medication infusion consisting of nitroglycerine, verapamil, and heparin was administered intra-arterially through the radial sheath over 2 minutes. A standard diagnostic catheter and wire were then fluoroscopically advanced for selective catheterization of the following vessels: Brachiocephalic vascular family: Right common carotid artery, cervical AP and lateral views. Right internal carotid artery, intracranial views. Standard AP, lateral and oblique views. 3D rotational angiography Right subclavian (to visualize vertebral) artery, intracranial views. Standard AP, lateral, oblique views. Left carotid vascular family: Left common carotid artery, cervical AP and lateral views. Left common carotid artery, intracranial views. Standard AP, lateral and oblique views. Left subclavian vascular family: Left subclavian (to visualize vertebral) artery intracranial views. Standard AP, lateral views. Angiographic imaging was performed at each selected vessel with views as described above. 3D rotational angiography was obtained with the catheter placed in the right internal carotid artery. Images were sent to separate work station for reconstruction, volume rendering, post-processing and interpretation. After no further views and images were determined to be necessary, the procedure was terminated. All catheters and wires were removed from the patient. Hemostasis at the right wrist was obtained by TR band. The patient was transferred to the recovery room in stable condition. FINDINGS: RIGHT COMMON CAROTID ARTERY INJECTION (cervical): DSA images of the right anterior cervical circulation demonstrate normal course and caliber of the distal common carotid artery. The bifurcation (more content not included)... [facility] IR US VASCULAR ACCESS GUIDEo n 10-25-2024 IR US VASCULAR ACCESS GUIDE * * *Final Report* * * DATE OF EXAM: Oct 25 2024 2:37PM [facility] [id number] - IR US VASCULAR ACCESS GUIDE / PROCEDURE REASON: Cerebral aneurysm (HCC) [I67.1] * * * * Physician Interpretation * * * * Endovascular Surgical Neuroradiology Report CLINICAL HISTORY: This patient is a 64 year-old male who presented with transient neurologic symptoms. Noninvasive imaging suggestive of an intracranial aneurysm with some suggestion of growth over years on follow-up. A diagnostic cerebral angiogram was requested to evaluate the cerebral vasculature. PROCEDURE: 1. Ultrasound-guided right radial artery access. 2. Diagnostic cervicocerebral angiogram. INFORMED CONSENT: The procedural risks, benefits, alternatives and complications were discussed with the patient. All questions were answered and they requested that we proceed. PRE-PROCEDURAL DIAGNOSIS: Cerebral Aneurysm POST-PROCEDURAL DIAGNOSIS: Same. TIME OUT TIME: 1347 PROCEDURE START TIME: 1347 PROCEDURE END TIME: 142 ATTENDING: Randall Rodríguez MD CHIEF RESERVOIR ENGINEERING: Eladio Hope CNP The procedure was performed by the attending, with an pathology assistant. ANESTHESIA: Conscious sedation with 50 mcg fentanyl and 1 mg Versed were administered by IV with continuous monitoring by a dedicated nurse. Pulsed oximetry, cardiopulmonary monitoring and electrocardiography was performed throughout the procedure. Intra-service time (monitoring for moderate sedation) (starts with administration of agent, ends when continuous [id number] time ends): 36 minutes. Patient monitoring: The attending physician personally supervised and directed an independent trained observer who assisted in monitoring the patient?s level of consciousness and physiological status throughout the procedure. ANGIOGRAPHY MATERIALS: Diagnostic catheter: 5 [place] Beatty 2 Catheter Guidewire: 0.035 angled-tapered Glidewire. Fluoroscopic Radiation Summary: Plane A, Air Kerma: 375.1 mGy Plane B, Air Kerma: 127.7 mGy Dose Area Product (DAP): Fluoro time: 7:54 min:sec Radiation dose exceed 5 Gy: No If radiation dose exceeded 5 Gy, was counseling and instructional brochure provided:N/A Contrast (intra-arterial): 118 ml of OMNIPAQUE 300 TECHNIQUE: After veronika discussion of the risks and benefits of diagnostic cerebral angiography, informed consent was obtained. The patient was brought to the angiography suite and placed in supine position. After hemodynamic monitoring was established, Conscious sedation was administered by our nursing staff. The right wrist was prepped and draped in the usual standard fashion. The right radial artery access site was localized 2 cm proximal to the radial styloid process. The artery was assessed using ultrasound: Right radial artery: Normal and patent. The right radial artery was found to be sufficient for transradial access. A permanent image of the artery was archived. 1% lidocaine was administered for local anesthesia. Vascular access was then obtained in the artery utilizing a standard 4 Fr micropuncture set, under direct ultrasound visualization. A 5 [place] slender sheath was inserted and connected to heparinized saline flush. A vasodilatory medication infusion consisting of nitroglycerine, verapamil, and heparin was administered intra-arterially through the radial sheath over 2 minutes. A standard diagnostic catheter and wire were then fluoroscopically advanced for selective catheterization of the following vessels: Brachiocephalic vascular family: Right common carotid artery, cervical AP and lateral views. Right internal carotid artery, intracranial views. Standard AP, lateral and oblique views. 3D rotational angiography Right subclavian (to visualize vertebral) artery, intracranial views. Standard AP, lateral, oblique views. Left carotid vascular family: Left common carotid artery, cervical AP and lateral views. Left common carotid artery, intracranial views. Standard AP, lateral and oblique views. Left subclavian vascular family: Left subclavian (to visualize vertebral) artery intracranial views. Standard AP, lateral views. Angiographic imaging was performed at each selected vessel with views as described above. 3D rotational angiography was obtained with the catheter placed in the right internal carotid artery. Images were sent to separate work station for reconstruction, volume rendering, post-processing and interpretation. After no further views and images were determined to be necessary, the procedure was terminated. All catheters and wires were removed from the patient. Hemostasis at the right wrist was obtained by TR band. The patient was transferred to the recovery room in stable condition. FINDINGS: RIGHT COMMON CAROTID ARTERY INJECTION (cervical): DSA images of the right anterior cervical circulation demonstrate normal course and caliber of the distal common carotid artery. The bifurcation is (more content not included)... Normal [facility] IR-BILAT VERT-SC/INOM INJECT on 10-25-2024 IR-BILAT VERT-SC/INOM INJECT * * *Final Report* * * DATE OF EXAM: Oct 25 2024 2:37PM [facility]70 - IR-BILAT VERT-SC/INOM INJECT / PROCEDURE REASON: Cerebral aneurysm (HCC) [I67.1] * * * * Physician Interpretation * * * * Endovascular Surgical Neuroradiology Report CLINICAL HISTORY: This patient is a 64 year-old male who presented with transient neurologic symptoms. Noninvasive imaging suggestive of an intracranial aneurysm with some suggestion of growth over years on follow-up. A diagnostic cerebral angiogram was requested to evaluate the cerebral vasculature. PROCEDURE: 1. Ultrasound-guided right radial artery access. 2. Diagnostic cervicocerebral angiogram. INFORMED CONSENT: The procedural risks, benefits, alternatives and complications were discussed with the patient. All questions were answered and they requested that we proceed. PRE-PROCEDURAL DIAGNOSIS: Cerebral Aneurysm POST-PROCEDURAL DIAGNOSIS: Same. TIME OUT TIME: 1347 PROCEDURE START TIME: 1347 PROCEDURE END TIME: 1424 ATTENDING: Randall Rodríguez MD CHIEF RESERVOIR ENGINEERING: Eladio Hope CNP The procedure was performed by the attending, with an pathology assistant. ANESTHESIA: Conscious sedation with 50 mcg fentanyl and 1 mg Versed were administered by IV with continuous monitoring by a dedicated nurse. Pulsed oximetry, cardiopulmonary monitoring and electrocardiography was performed throughout the procedure. Intra-service time (monitoring for moderate sedation) (starts with administration of agent, ends when continuous [id number] time ends): 36 minutes. Patient monitoring: The attending physician personally supervised and directed an independent trained observer who assisted in monitoring the patient?s level of consciousness and physiological status throughout the procedure. ANGIOGRAPHY MATERIALS: Diagnostic catheter: 5 [place] Beatty 2 Catheter Guidewire: 0.035 angled-tapered Glidewire. Fluoroscopic Radiation Summary: Plane A, Air Kerma: 375.1 mGy Plane B, Air Kerma: 127.7 mGy Dose Area Product (DAP): Fluoro time: 7:54 min:sec Radiation dose exceed 5 Gy: No If radiation dose exceeded 5 Gy, was counseling and instructional brochure provided:N/A Contrast (intra-arterial): 118 ml of OMNIPAQUE 300 TECHNIQUE: After veronika discussion of the risks and benefits of diagnostic cerebral angiography, informed consent was obtained. The patient was brought to the angiography suite and placed in supine position. After hemodynamic monitoring was established, Conscious sedation was administered by our nursing staff. The right wrist was prepped and draped in the usual standard fashion. The right radial artery access site was localized 2 cm proximal to the radial styloid process. The artery was assessed using ultrasound: Right radial artery: Normal and patent. The right radial artery was found to be sufficient for transradial access. A permanent image of the artery was archived. 1% lidocaine was administered for local anesthesia. Vascular access was then obtained in the artery utilizing a standard 4 Fr micropuncture set, under direct ultrasound visualization. A 5 [place] slender sheath was inserted and connected to heparinized saline flush. A vasodilatory medication infusion consisting of nitroglycerine, verapamil, and heparin was administered intra-arterially through the radial sheath over 2 minutes. A standard diagnostic catheter and wire were then fluoroscopically advanced for selective catheterization of the following vessels: Brachiocephalic vascular family: Right common carotid artery, cervical AP and lateral views. Right internal carotid artery, intracranial views. Standard AP, lateral and oblique views. 3D rotational angiography Right subclavian (to visualize vertebral) artery, intracranial views. Standard AP, lateral, oblique views. Left carotid vascular family: Left common carotid artery, cervical AP and lateral views. Left common carotid artery, intracranial views. Standard AP, lateral and oblique views. Left subclavian vascular family: Left subclavian (to visualize vertebral) artery intracranial views. Standard AP, lateral views. Angiographic imaging was performed at each selected vessel with views as described above. 3D rotational angiography was obtained with the catheter placed in the right internal carotid artery. Images were sent to separate work station for reconstruction, volume rendering, post-processing and interpretation. After no further views and images were determined to be necessary, the procedure was terminated. All catheters and wires were removed from the patient. Hemostasis at the right wrist was obtained by TR band. The patient was transferred to the recovery room in stable condition. FINDINGS: RIGHT COMMON CAROTID ARTERY INJECTION (cervical): DSA images of the right anterior cervical circulation demonstrate normal course and caliber of the distal common carotid artery. The bifurcation is (more content not included)... Normal [facility] IR-ICA H/N UNI W/WO ARCHon 0 10-25-2024 IR-ICA H/N UNI W/WO ARCH * * *Final Report* * * DATE OF EXAM: Oct 25 2024 2:37PM [facility]67 - IR-ICA H/N UNI W/WO ARCH - RIGHT / PROCEDURE REASON: Cerebral aneurysm (HCC) [I67.1] * * * * Physician Interpretation * * * * Endovascular Surgical Neuroradiology Report CLINICAL HISTORY: This patient is a 64 year-old male who presented with transient neurologic symptoms. Noninvasive imaging suggestive of an intracranial aneurysm with some suggestion of growth over years on follow-up. A diagnostic cerebral angiogram was requested to evaluate the cerebral vasculature. PROCEDURE: 1. Ultrasound-guided right radial artery access. 2. Diagnostic cervicocerebral angiogram. INFORMED CONSENT: The procedural risks, benefits, alternatives and complications were discussed with the patient. All questions were answered and they requested that we proceed. PRE-PROCEDURAL DIAGNOSIS: Cerebral Aneurysm POST-PROCEDURAL DIAGNOSIS: Same. TIME OUT TIME: 1347 PROCEDURE START TIME: 134 PROCEDURE END TIME: 1424 ATTENDING: Randall Rodríguez MD CHIEF RESERVOIR ENGINEERING: Eladio Hope CNP The procedure was performed by the attending, with an pathology assistant. ANESTHESIA: Conscious sedation with 50 mcg fentanyl and 1 mg Versed were administered by IV with continuous monitoring by a dedicated nurse. Pulsed oximetry, cardiopulmonary monitoring and electrocardiography was performed throughout the procedure. Intra-service time (monitoring for moderate sedation) (starts with administration of agent, ends when continuous [id number] time ends): 36 minutes. Patient monitoring: The attending physician personally supervised and directed an independent trained observer who assisted in monitoring the patient?s level of consciousness and physiological status throughout the procedure. ANGIOGRAPHY MATERIALS: Diagnostic catheter: 5 [place] Beatty 2 Catheter Guidewire: 0.035 angled-tapered Glidewire. Fluoroscopic Radiation Summary: Plane A, Air Kerma: 375.1 mGy Plane B, Air Kerma: 127.7 mGy Dose Area Product (DAP): Fluoro time: 7:54 min:sec Radiation dose exceed 5 Gy: No If radiation dose exceeded 5 Gy, was counseling and instructional brochure provided:N/A Contrast (intra-arterial): 118 ml of OMNIPAQUE 300 TECHNIQUE: After veronika discussion of the risks and benefits of diagnostic cerebral angiography, informed consent was obtained. The patient was brought to the angiography suite and placed in supine position. After hemodynamic monitoring was established, Conscious sedation was administered by our nursing staff. The right wrist was prepped and draped in the usual standard fashion. The right radial artery access site was localized 2 cm proximal to the radial styloid process. The artery was assessed using ultrasound: Right radial artery: Normal and patent. The right radial artery was found to be sufficient for transradial access. A permanent image of the artery was archived. 1% lidocaine was administered for local anesthesia. Vascular access was then obtained in the artery utilizing a standard 4 Fr micropuncture set, under direct ultrasound visualization. A 5 [place] slender sheath was inserted and connected to heparinized saline flush. A vasodilatory medication infusion consisting of nitroglycerine, verapamil, and heparin was administered intra-arterially through the radial sheath over 2 minutes. A standard diagnostic catheter and wire were then fluoroscopically advanced for selective catheterization of the following vessels: Brachiocephalic vascular family: Right common carotid artery, cervical AP and lateral views. Right internal carotid artery, intracranial views. Standard AP, lateral and oblique views. 3D rotational angiography Right subclavian (to visualize vertebral) artery, intracranial views. Standard AP, lateral, oblique views. Left carotid vascular family: Left common carotid artery, cervical AP and lateral views. Left common carotid artery, intracranial views. Standard AP, lateral and oblique views. Left subclavian vascular family: Left subclavian (to visualize vertebral) artery intracranial views. Standard AP, lateral views. Angiographic imaging was performed at each selected vessel with views as described above. 3D rotational angiography was obtained with the catheter placed in the right internal carotid artery. Images were sent to separate work station for reconstruction, volume rendering, post-processing and interpretation. After no further views and images were determined to be necessary, the procedure was terminated. All catheters and wires were removed from the patient. Hemostasis at the right wrist was obtained by TR band. The patient was transferred to the recovery room in stable condition. FINDINGS: RIGHT COMMON CAROTID ARTERY INJECTION (cervical): DSA images of the right anterior cervical circulation demonstrate normal course and caliber of the distal common carotid artery. The bifurcatio (more content not included)... Normal [facility] NURSING PROGon 10-25-2024 NURSING PROG HNO ID: [id number] Author: WINNIE CELAYA RN Service: Radiology Author Type: Registered Nurse Type: Nursing Progress Note Filed: 10/25/2024 12:29 Note Text: PATIENT EDUCATION TOPIC: PROCEDURE / SURGERY: Procedure/Surgery: cerebral angiogram PATIENT NAME: Temo Wilkes PATIENT LOCATION: INTERVENTIONAL RADIOL* READINESS TO LEARN COGNITIVE ABILITY: Alert and oriented MOTIVATION TO LEARN: Interested FAMILY SUPPORT: High - Very involved in pt care INSTRUCTION PROVIDED TO: Patient PATIENT LEARNS BEST BY: Multiple Methods FACTORS AFFECTING LEARNING: None PHYSICAL LIMITATIONS AFFECTING LEARNING: None LEARNING RESPONSE DIAGNOSIS: ADULT: cerebral aneurysm PATIENT/FAMILY RESPONSE: Verbalizes understanding of: POST-PROCEDURE INSTRUCTIONS-Correct actions to take to reduce post procedure complications PRE-PROCEDURE INSTRUCTIONS-Correct action to take to follow pre-procedure instructions METHOD OF INSTRUCTION: Individual instruction Written instruction/Handouts Verbal instruction FOLLOW-UP PLAN: Follow-up with Primary Care INSTRUCTIONAL AIDS USED: NA SUPPLEMENTAL MATERIAL PROVIDED TO PATIENT: None REFERRAL (RECOMMENDATION): None Electronically Signed By: Winnie Celaya [facility] Joe 10-20-2024 KIA Telephone (IRRFV) TEMO WILKES ([id number]) 1960 M Date Time Provider Department 10/20/24 SHIRA VO [facility] During your visit today, we recorded the following information about you: Shira Vo, CHAVEZ 10/20/2024 1:41 PM Signed RADIOLOGY PROCEDURE INSTRUCTIONS: You are scheduled for a Diagnostic angiogram, on Friday October 25, 2024 You are to arrive at 12 pm and check in at [facility] Radiology Department located on 1st floor. You can expect to be here for 6-8 hours. Address: [place] [address] Diet: Do not eat any solid food after midnight the night before your procedure. You may drink clear liquids until 10:00 am the day of your procedure, which means black coffee, apple juice, tea, jello, Gatorade, or water only. Medications: Please take prescribed medications such as heart, blood pressure, anti-seizure, and chronic pain medications with a sip of clear liquids. Bring your current medication list. Radiology recommends these medication restrictions: If you are taking any medication that is a blood thinner, hypoglycemic, weight loss agent, etc., you may need to hold this medication prior to procedure. Not stopping the medication correctly may result in your procedure being canceled. Make sure to take your plavix and aspirin as instructed on day of procedure. If you are currently taking injectable or oral medication for diabetes or weight loss: Tirzepatide (Mounjaro) Hold the day of the procedure for daily doses Hold the week before the procedure for weekly doses These medications cause food to remain in your stomach for extended periods of time and increase risks of sedation. Allergies: Allergies reviewed: Yes Do you have a contrast dye allergy? No. Labs: Lab work needs to be drawn? No. Deputy Bailiff/Transportation: How will you be arriving for your procedure? Private car. If you will be arriving via ambulance or public transportation, please call to discuss. You will need a responsible adult to accompany you to and from the procedure. We will verify your ride home upon arrival. Minors/visitors requiring supervision cannot accompany you unless there is another responsible adult with them. Child and/or dependent care arrangements need to be made. If you need to cancel or reschedule your procedure, please call our hog sawyer: Charisma Treadwell and [facility] [phone]; 8am - 4pm M-F If you have any additional questions please call: [facility] Radiology nurses desk at [phone] 8am - 4pm M-F. 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 - ergocalciferol 50,000 unit capsule (VITAMIN D2, DRISDOL) Take 50,000 Units by mouth. - Fenofibrate (LOFIBRA) 160 mg tablet - MOUNJARO 7.5 mg/0.5 mL pen injector - clopidogrel (PLAVIX) 75 mg tablet Take 75 mg by mouth once daily. - hydrOXYchloroQUINE (PLAQUENIL) 200 mg tablet 2 tablets. - metoprolol tartrate, short acting, (LOPRESSOR) 25 mg tablet - atorvastatin (LIPITOR) 40 mg tablet Take 40 mg by mouth once daily. - losartan (COZAAR) 25 mg tablet Take 25 mg by mouth once daily. - amLODIPine (NORVASC) 2.5 mg tablet Take 5 mg by mouth once daily. Problem List As Of Date 10/20/2024 Noted Resolved PANCREATIC DISEASE NOS [K86.9] 09/20/2008 Sensorineural hearing loss, asymmetrical [H90.3]11/08/2022 Encounter Status:Closed by SHIRA VO on 10/20/24 Normal [facility] Basic metabolic 2000 panelon 10-18-2024 Anion gap [Moles/Vol] 12 mmol/L Normal 8-15 [facility] Comment on above: Order Comment: Speci men Type: BLOOD SPECIMEN Ordering Facility: [facility] Address: [address] [place] [address] Performed By: #### 2 4321-2 #### [facility] CLIA [id number] [address] [place] [address] [place] Calcium [Mass/Vol] 9.8 mg/dL Normal 8.5-10.2 [facility] Comment on above: Order Comment: Speci men Type: BLOOD SPECIMEN Ordering Facility: [facility] Address: [address] [place] [address] Performed By: #### 2 4321-2 #### [facility] CLIA [id number] [address] [place] [address] [place] Chloride [Moles/Vol] 101 mmol/L Normal 98-107 [facility] Comment on above: Order Comment: Speci men Type: BLOOD SPECIMEN Ordering Facility: [facility] Address: [address] [place] [address] Performed By: #### 2 4321-2 #### [facility] CLIA [id number] [address] [place] [address] [place] CO2 [Moles/Vol] 23 mmol/L Normal 22-30 [facility] Comment on above: Order Comment: Speci men Type: BLOOD SPECIMEN Ordering Facility: [facility] Address: [address] [place] [address] Performed By: #### 2 4321-2 #### [facility] CLIA [id number] [address] [place] [address] [place] Creatinine [Mass/Vol] 0.79 mg/dL Normal 0.73-1.22 [facility] Comment on above: Order Comment: Speci men Type: BLOOD SPECIMEN Ordering Facility: [facility] Address: [address] [place] [address] Performed By: #### 2 4321-2 #### [facility] CLIA [id number] [address] [place] [address] [place] eGFRcr SerPlBld CKD-EPI 2020 100 mL/min/1.73m??? Normal >=60 [facility] Comment on above: Order Comment: Speci men Type: BLOOD SPECIMEN Ordering Facility: [facility] Address: [address] [place] [address] Result Comment: Jennifer mated Glomerular Filtration Rate (eGFR) is calculated using the 2020 CKD-EPI creatinine equation. This equation utilizes serum creatinine, sex, and age as parameters. The creatinine assay has traceable calibration to isotope dilution-mass spectrometry. Refer to KDIGO guidelines for clinical interpretation. In patients with unstable renal function, e.g. those with acute kidney injury, the eGFR may not accurately reflect actual GFR. Performed By: #### 2 4321-2 #### [facility] CLIA [id number] [address] [place] [address] [place] Glucose [Mass/Vol] 94 mg/dL Normal 74-99 [facility] Comment on above: Order Comment: Hodan wells Type: BLOOD SPECIMEN Ordering Facility: [facility] Address: [address] [place] [address] Result Comment: The [place] Diabetes Association (ADA) provides guidance for cutoff values for fasting glucose and random glucose. The ADA defines fasting as no caloric intake for at least 8 hours. Fasting plasma glucose results between 100 to 125 mg/dL indicate increased risk for diabetes (prediabetes). Fasting plasma glucose results greater than or equal to 126 mg/dL meet the criteria for diagnosis of diabetes. In the absence of unequivocal hyperglycemia, results should be confirmed by repeat testing. In a patient with classic symptoms of hyperglycemia or hyperglycemic crisis, random plasma glucose results greater than or equal to 200 mg/dL meet the criteria for diagnosis of diabetes. Reference: Standards of Medical Care in Diabetes 2016, [place] Diabetes Association. Diabetes Care. 2016.39(Suppl 1). Performed By: #### 2 4321-2 #### [facility] CLIA [id number] [address] [place] [address] [place] Potassium [Moles/Vol] 4.8 mmol/L Normal 3.7-5.1 [facility] Comment on above: Order Comment: Hodan wells Type: BLOOD SPECIMEN Ordering Facility: [facility] Address: [address] [place], [place] [id number] Performed By: #### 2 4321-2 #### [facility] CLIA [id number] [address] [place], [place] [id number] [place] Sodium [Moles/Vol] 136 mmol/L Normal 136-144 [facility] Comment on above: Order Comment: Speci men Type: BLOOD SPECIMEN Ordering Facility: [facility] Address: [address] [place] [address] Performed By: #### 2 4321-2 #### [facility] CLIA [id number] [address] [place] [address] [place] Urea nitrogen [Mass/Vol] 15 mg/dL Normal 9-24 [facility] Comment on above: Order Comment: Speci men Type: BLOOD SPECIMEN Ordering Facility: [facility] Address: [address] [place] [address] Performed By: #### 2 4321-2 #### [facility] CLIA [id number] [address] [place] [address] [place] CBC panel Auto (Bld)on 10-18 Erythrocyte distribution width (RBC) [Ratio] 13.2 % Normal 11.5-15.0 [facility] Comment on above: Order Comment: Speci men Type: BLOOD SPECIMEN Ordering Facility: [facility] Address: [address] [place] [address] Performed By: #### 5 8410-2 #### [facility] CLIA [id number] [address] [place] [address] [place] Hematocrit (Bld) [Volume fraction] 42.0 % Normal 39.0-51.0 [facility] Comment on above: Order Comment: Speci men Type: BLOOD SPECIMEN Ordering Facility: [facility] Address: [address] [place] [address] Performed By: #### 5 8410-2 #### [facility] CLIA [id number] [address] [place] [address] [place] Hemoglobin (Bld) [Mass/Vol] 14.1 g/dL Normal 13.0-17.0 [facility] Comment on above: Order Comment: Speci men Type: BLOOD SPECIMEN Ordering Facility: [facility] Address: [address] [place] [address] Performed By: #### 5 8410-2 #### [facility] CLIA [id number] [address] [place] [address] [place] MCH (RBC) [Entitic mass] 31.2 pg Normal 26.0-34.0 [facility] Comment on above: Order Comment: Speci men Type: BLOOD SPECIMEN Ordering Facility: [facility] Address: [address] [place] [address] Performed By: #### 5 8410-2 #### [facility] CLIA [id number] [address] [place] [address] [place] MCHC (RBC) [Mass/Vol] 33.6 g/dL Normal 30.5-36.0 [facility] Comment on above: Order Comment: Speci men Type: BLOOD SPECIMEN Ordering Facility: [facility] Address: [address] [place] [address] Performed By: #### 5 8410-2 #### [facility] CLIA [id number] [address] [place] [address] [place] MCV (RBC) [Entitic vol] 92.9 fL Normal 80.0-100.0 C [facility] Comment on above: Order Comment: Speci men Type: BLOOD SPECIMEN Ordering Facility: [facility] Address: [address] [place] [address] Performed By: #### 5 8410-2 #### [facility] CLIA [id number] [address] [place] [address] [place] Nucleated RBC (Bld) [#/Vol] 10*3/uL Normal <0.01 [facility] Comment on above: Order Comment: Speci men Type: BLOOD SPECIMEN Ordering Facility: [facility] Address: [address] [place] [address] Performed By: #### 5 8410-2 #### [facility] CLIA [id number] [address] [place] [address] [place] Platelet mean volume (Bld) [Entitic vol] 10.8 fL Normal 9.0-12.7 [facility] Comment on above: Order Comment: Speci men Type: BLOOD SPECIMEN Ordering Facility: [facility] Address: [address] [place] [address] Performed By: #### 5 8410-2 #### [facility] CLIA [id number] [address] [place] [address] [place] Platelets (Bld) [#/Vol] 430 10*3/uL High 150-400 [facility] Comment on above: Order Comment: Speci men Type: BLOOD SPECIMEN Ordering Facility: [facility] Address: [address] [place] [address] Performed By: #### 5 8410-2 #### [facility] CLIA [id number] [address] [place] [address] [place] RBC (Bld) [#/Vol] 4.52 10*6/uL Normal 4.20-6.00 [facility] Comment on above: Order Comment: Speci men Type: BLOOD SPECIMEN Ordering Facility: [facility] Address: [address] [place] [address] Performed By: #### 5 8410-2 #### [facility] CLIA [id number] [address] [place] [address] [place] WBC (Bld) [#/Vol] 16.74 10*3/uL High 3.70-11.00 [facility] Comment on above: Order Comment: Speci men Type: BLOOD SPECIMEN Ordering Facility: [facility] Address: [address] [place] [address] Performed By: #### 5 8410-2 #### [facility] CLIA [id number] [address] [place] [address] [place] Joe 10-18-2024 DANDREN Telephone (IRRFV) KATRINTEMO ([id number]) 1960 M Date Time Provider Department 10/18/24 ARIC TROY During your visit today, we recorded the following information about you: Allergies As of Date: 10/18/2024 Noted Allergy Reaction EVERARDO SEED 07/04/2020 4 - Hives 9 - Itching 2 - Rash 12 - Shortness of Breath 7 - Swelling PNEUMOVAX 23 (PNEUMOCOCCAL 23-DANIE*09/20/2008 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 - ergocalciferol 50,000 unit capsule (VITAMIN D2, DRISDOL) Take 50,000 Units by mouth. - Fenofibrate (LOFIBRA) 160 mg tablet - MOUNJARO 7.5 mg/0.5 mL pen injector - clopidogrel (PLAVIX) 75 mg tablet Take 75 mg by mouth once daily. - hydrOXYchloroQUINE (PLAQUENIL) 200 mg tablet 2 tablets. - metoprolol tartrate, short acting, (LOPRESSOR) 25 mg tablet - atorvastatin (LIPITOR) 40 mg tablet Take 40 mg by mouth once daily. - losartan (COZAAR) 25 mg tablet Take 25 mg by mouth once daily. - amLODIPine (NORVASC) 2.5 mg tablet Take 5 mg by mouth once daily. Problem List As Of Date 10/18/2024 Noted Resolved PANCREATIC DISEASE NOS [K86.9] 09/20/2008 Sensorineural hearing loss, asymmetrical [H90.3]11/08/2022 Encounter Status:Closed by [facility] KAT[facility] ([id number]) 1960 M Date Time Provider Department 09/14/24 RANDALL RODRÍGUEZ During your visit today, we recorded the following information about you: Marley Zaldivar RN 09/14/2024 4:14 PM Signed Called pt to discuss dates for dx angiogram with Dr. Rodríguez at in . He agreed to 3rd case on Wednesday 10/25. Offered 10/28 which has no cases scheduled yet, but pt states the is better for him. Takes Mounjaro on Mondays. Last dose will be on 10/18. Will get labs at [facility]. Written instructions to be sent through my chart. 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 - ergocalciferol 50,000 unit capsule (VITAMIN D2, DRISDOL) Take 50,000 Units by mouth. - Fenofibrate (LOFIBRA) 160 mg tablet - MOUNJARO 7.5 mg/0.5 mL pen injector - clopidogrel (PLAVIX) 75 mg tablet Take 75 mg by mouth once daily. - hydrOXYchloroQUINE (PLAQUENIL) 200 mg tablet 2 tablets. - metoprolol tartrate, short acting, (LOPRESSOR) 25 mg tablet - atorvastatin (LIPITOR) 40 mg tablet Take 40 mg by mouth once daily. - losartan (COZAAR) 25 mg tablet Take 25 mg by mouth once daily. - amLODIPine (NORVASC) 2.5 mg tablet Take 5 mg by mouth once daily. Problem List As Of Date 09/14/2024 Noted Resolved PANCREATIC DISEASE NOS [K86.9] 09/20/2008 Sensorineural hearing loss, asymmetrical [H90.3]11/08/2022 Encounter Status:Closed by MARLEY ZALDIVAR on 09/14/24 [facility] CNOVon 09-02-2024 CNOV Office Visit (NEV) TEMO WILKES ([id number]) 1960 M Date Time Provider Department 09/02/24 2:00 PM [facility] During your visit today, we recorded the following information about you: Pulse Blood pressure Weight 80/minute 149/80 79.2 kg Angeles Castro APRN.CHEMICAL EQUIPMENT CONTROLLER 09/02/2024 3:17 PM [facility] Established Outpatient Visit Temo Wilkes [facility]#: [id number] Date of Service: 09/02/2024 Primary Care Provider: Macario Tyler DO [address] [place] [id number] OUTPATIENT FOLLOW-UP Chief complaint: incidental brain aneurysm Collaborating Physician: Randall Rodríguez MD Referring Provider: Macario Tyler DO History of present illness: Mr. Wilkes is a 63-year-old male, who presents for initial evaluation of an incidentally discovered brain aneurysm with Dr. Rodríguez in 06/2022. The patient developed sudden onset sweating upper lip numbness and right hand numbness with garbled speech about 2-3 weeks ago while reading in [employer]. He had to sit down, and about 10 minutes his symptoms resolved. He continued to have headache for several hours after that. He still continues to have low-grade headaches. 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 The patient reports 2 other similar events in the last 10 years, but those had no significant associated headaches, per patient. He was told that he might have had TIAs or mini seizures. He denies any other seizure-like spells. He takes blood pressure medications, but he is uncertain how well his blood pressure is controlled. He also has high cholesterol and diabetes. He does not smoke, quit in the . He had a cousin who collapsed at age 17 and , possibly of an aneurysm, but the details are not clear. There are no other family members with brain aneurysm or subarachnoid hemorrhage. Interval History: Temo Wilkes is a 63-year-old male with a history of aneurysm, presenting for follow-up. Temo reports that his aneurysm has increased in size from 3 mm to 3.5 mm. He has a family history of aneurysm, with a cousin on his father's side who at age 17 from an aneurysm. He also has a history of seizures during childhood, including absence seizures and a few generalized tonic-clonic seizures at ages 12-13. He has not experienced any recent episodes since starting Plavix. 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 He is considering early correction due to the stress, which he believes is contributing to frequent headaches and elevated blood pressure. He monitors his blood pressure at home but forgot to take his medication today. He does not smoke, drink alcohol, or use drugs, having quit all in 1994. Temo is currently taking Mounjaro, Plavix, and medications for blood pressure and cholesterol. He does not endorse any new neurological symptoms. Past Diagnostic Results: - (06/2022) CT Scan: Aneurysm measured at 3.5 mm. - (2021) MRI: Aneurysm measured at 3 mm. Hypertension NA Coronary Artery Disease NA Diabetes NA Obesity NA Dyslipidemia NA Tobacco Use (Please Update Smoking History) NA Stroke NA Intracranial Aneurysm NA Past Medical History: ACTIVE PROBLEM LIST Unspecified Disease of Pancreas Sensorineural Hearing Loss, Asymmetrical PAST SURGICAL HISTORY Procedure Laterality Date PROSTATE SURGERY HX 11/2023 Allergies: Everardo Seed and Pneumovax 23 [Pneumococcal 23-Danie Ps Vaccine] Current Outpatient Medications Medication Sig enalapril (VASOTEC) 10 mg tablet Take 1 tablet by mouth once daily. Fenofibrate (LOFIBRA) 160 mg tablet MOUNJARO 7.5 mg/0.5 mL pen injector clopidogrel (PLAVIX) 75 mg tablet Take 75 mg by mouth once daily. hydrOXYchloroQUINE (PLAQUENIL) 200 mg tablet 2 tablets. metoprolol tartrate, short acting, (LOPRESSOR) 25 mg tablet atorvastatin (LIPITOR) 40 mg tablet Take 40 mg by mouth once daily. losartan (COZAAR) 25 mg tablet Take 25 mg by mouth once daily. amLODIPine (NORVASC) 2.5 mg tablet Take 5 mg by mouth once daily. ergocalciferol 50,000 unit capsule (VITAMIN D2, DRISDOL) Take 50,000 Units by mouth. No current facility-administered medications for this visit. Social History Tobacco Use Smoking status: Former Current packs/day: 0.00 Types: Cigarettes Quit date: 1994 Years since quittin. Smokeless tobacco: Never Substance Use Topics Alcohol use: Not Currently Family History: Subarachnoid hemorrhage: Yes, paternal cousin at age 17 Aneurysms: Yes, paternal cousin Stroke: None Vascular malformations: None Other neurologic diseases: None (more content not included)... Normal [facility] 08-23-2024 [facility] Telephone ([facility]) TEMO WILKES ([id number]) 1960 Date Time Provider Department 08/23/24 MEHRAN CHAVEZ [facility] During your visit today, we recorded the following information about you: Dwight Garcia 08/23/2024 1:50 PM Signed CV PHONE Name of caller : Temo Relationship to patient : Self If not self Will need patient permission to release results or disclose health information with called documented in . Patient identified by Name and Date of . ( Temo Wilkes, 1960). Yes Number to return call [phone] Reason for Call: Patient Question/Update: Patient asking for a call to go over MRI results. Thank you calling [facility]. You will receive a return call within 48 hours ( or 2 business days if close to the weekend). If you feel that this is an urgent issue and needs immediate attention, it is recommended that you contact your primary care provider office or proceed to your nearest Urgent [facility] for evaluation/treatment. 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 - FARXIGA 10 mg tablet - hydrOXYchloroQUINE (PLAQUENIL) 200 mg tablet 2 tablets. - metoprolol tartrate, short acting, (LOPRESSOR) 25 mg tablet - metFORMIN (GLUCOPHAGE) 1,000 mg tablet Take 1,000 mg by mouth twice daily with meals. - atorvastatin (LIPITOR) 40 mg tablet Take 40 mg by mouth once daily. - losartan (COZAAR) 25 mg tablet Take 25 mg by mouth once daily. - glimepiride (AMARYL) 4 mg tablet Take 4 mg by mouth daily with breakfast. - amLODIPine (NORVASC) 2.5 mg tablet Take 5 mg by mouth once daily. Problem List As Of Date 08/23/2024 Noted Resolved PANCREATIC DISEASE NOS [K86.9] 09/20/2008 Sensorineural hearing loss, asymmetrical [H90.3]11/08/2022 Encounter Status:Closed by SHALINI SALAZAR on 08/23/24 [facility] 08-06-2024 [facility] Telephone (NECVS8) KATRINTEMO ([id number]) 1960 M Date Time Provider Department 08/06/24 MEHRAN CHAVEZ NECVS8 During your visit today, we recorded the following information about you: Ami Pennington 08/06/2024 10:29 AM Signed MRA head results received from [facility] and scanned in chart Shalini Salazar RN 08/10/2024 10:04 AM Signed Called [facility], requested MRA from 08/01 be pushed through. Ami Pennington 08/13/2024 3:45 PM Addendum Images are viewable in chart, patient called in to make sure they were pushed through to us. I told him to expect a call from our office with further instructions after review by team. Received imaging report. Scanned in chart. Shalini Salazar RN 08/25/2024 11:29 AM Signed Called Alicia on hold will call back, . Were any additional views provided ie axial? Could we request the imaging again to include all views and not just 3D MIPS. 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 - ergocalciferol 50,000 unit capsule (VITAMIN D2, DRISDOL) Take 50,000 Units by mouth. - Fenofibrate (LOFIBRA) 160 mg tablet - MOUNJARO 7.5 mg/0.5 mL pen injector - clopidogrel (PLAVIX) 75 mg tablet Take 75 mg by mouth once daily. - hydrOXYchloroQUINE (PLAQUENIL) 200 mg tablet 2 tablets. - metoprolol tartrate, short acting, (LOPRESSOR) 25 mg tablet - atorvastatin (LIPITOR) 40 mg tablet Take 40 mg by mouth once daily. - losartan (COZAAR) 25 mg tablet Take 25 mg by mouth once daily. - amLODIPine (NORVASC) 2.5 mg tablet Take 5 mg by mouth once daily. Problem List As Of Date 08/06/2024 Noted Resolved PANCREATIC DISEASE NOS [K86.9] 09/20/2008 Sensorineural hearing loss, asymmetrical [H90.3]11/08/2022 Encounter Status:Closed by SHALINI SALAZAR on 08/25/24 Normal [facility] Magnetic resonance imaging r eportOrdered By: Adi Dukes on 08-06-2024 Study report [facility] Imaging Services [address] [place] [address] MRA Head ONLY without Contrast MR#: [id number] Acct: [id number] Name: TEMO WILKES Rep #: [id number] : 1960 M 63 From: Kirti Dukes MD PCP: TED Majano Status: REG CLI Study:MRA Head ONLY without Contrast Date of Exam: 08/03/24 Exam# [id number] Ordering Dr: Saud CHAVEZ ADDENDUM by Dr. Adi Dukes MD on 08/06/[address] angiogram of 07/02/2022 identified in a small right-sided anterior communicating artery aneurysm. On the current MRA, the axial source images were not included and as such, it isdifficult to fully evaluate the aneurysm. On the three-dimensional reconstructions, there is a suggestion that the aneurysm is stable but this is not definitive. If source images can be supplied, I would be happy to dictate an addendum with an accuratecomparison Reading Location: [facility] 08/06/24 1650 Date cc: TED Mosquera; Saud CHAVEZ ~* Signed PROCEDURE: MRA HEAD ONLY WITHOUT CONTRAST 08/03/2024 REASON FOR EXAM: CEREBRAL ANEURYSM, NON RUPTURED TECHNIQUE: 3D Time of Flight MRA of the head. Multiplanar multisequential imaging was performed without IV contrast administration. FINDINGS: Interestingly, source images were not supplied. There is no basilar stenosis. There is no narrowing of the carotid siphons. The right A1 segment is mildly hypoplastic. Both posterior cerebral arteries are patent. There is no intra cranial aneurysm. NoM1 or M2 stenosis. There is questionable narrowing of the junction of the left petrous ICA along with the precavernous ICA. MRI/MRA Head ONLY without Contrast IMPRESSION: Mild narrowing at the junction of the left precavernous and petrous ICA. Recommend correlation with CT angiography. The remainder of the study is normal Reading Location: [facility] CC: TED Mosquera; Saud CHAVEZ ~ Front Desk Team Member: Signed [facility] MRA Head ONLY without Contra ston 08-03-2024 MRA Head ONLY without Contrast [facility] Imaging Services [address] [place] [address] MRA Head ONLY without Contrast MR#: [id number] Acct: [id number] Name: TEMO WILKES Rep #: [id number] : 1960 M 63 From: Adi Dukes MD PCP: TED Majano Status: [facility] CLI Study: MRA Head ONLY without Contrast Date of Exam: 0 08/03/24 Exam# [id number] Ordering Dr: Saud CHAVEZ ADDENDUM by Dr. Adi Dukes MD on 08/27/24 at 1337 The source images from the MR a of 08/03/2024 have become available. On the source images, there is an aneurysm arising from the junction of the right A1 and A2 segments and points medially. This is a rather linear configuration of an aneurysm and my measurement today is a approximately 3.5 mm Overall, in comparing modalities, I do not believe there is a significant difference in size. When the examination is correlated with the CT angiogram of 07/02/2022, the aneurysm had a more saccular configuration on imaging and measured about 3.5 mm. Reading Location[facility] 08/27/24 1337 Date cc: TED Mosquera; Saud CHAVEZ * Signed ADDENDUM by Dr. Adi Dukes MD on 08/06/[address] angiogram of 07/02/2022 identified in a small right-sided anterior communicating artery aneurysm. On the current MRA, the axial source images were not included and as such, it is difficult to fully evaluate the aneurysm. On the three-dimensional reconstructions, there is a suggestion that the aneurysm is stable but this is not definitive. If source images can be supplied, I would be happy to dictate an addendum with an accurate comparison Reading Location: [facility] 08/06/24 1650 Date cc: TED Mosquera; Saud CHAVEZ * Signed PROCEDURE: MRA HEAD ONLY WITHOUT CONTRAST 08/03/2024 REASON FOR EXAM: CEREBRAL ANEURYSM, NON RUPTURED TECHNIQUE: 3D Time of Flight MRA of the head. Multiplanar multisequential imaging was performed without IV contrast administration. FINDINGS: Interestingly, source images were not supplied. There is no basilar stenosis. There is no narrowing of the carotid siphons. The right A1 segment is mildly hypoplastic. Both posterior cerebral arteries are patent. There is no intra cranial aneurysm. No M1 or M2 stenosis. There is questionable narrowing of the junction of the left petrous ICA along with the precavernous ICA. MRI/MRA Head ONLY without Contrast IMPRESSION: Mild narrowing at the junction of the left precavernous and petrous ICA. Recommend correlation with CT angiography. The remainder of the study is normal Reading [facility] CC: TED Mosquera; Saud CHAVEZ Front Desk Team Member: Signed Normal [facility] PSA,Total- Diagnosticon 05-2 2-2025 PSA, DIAGNOSTIC < 0.02 Normal 0.00-4.00 [facility] Comment on above: Result Comment: This test was performed using the [employer] tPSA method. Measured values of a patient??sample can vary depending on the testing procedure used. PSA values determined on patient samples by different testing procedures cannot be used interchangeably. If there is a change in PSA assays while monitoring therapy, sequential testing should be performed to confirm baseline values. Performed By: #### L [id number] ####[facility] [address] [place], [address] [facility] 07-19-2024 [facility] Telephone ([facility]) TEMO WILKES ([id number]) 1960 Date Time Provider Department 07/19/24 RANDALL RODRÍGUEZ [facility] During your visit today, we recorded the following information about you: Dwight Garcia 07/19/2024 3:02 PM Signed CV PHONE Name of caller : Temo Relationship to patient : Self If not self Will need patient permission to release results or disclose health information with called documented in . Patient identified by Name and Date of . ( Temo Wilkes, 1960). Yes Number to return call [phone] Reason for Call: Patient Question/Update: Patient calling asking for MRI order to be put in so he can schedule upcoming 2 year follow up appointment. Thank you calling [facility] [place]. You will receive a return call within 48 hours ( or 2 business days if close to the weekend). If you feel that this is an urgent issue and needs immediate attention, it is recommended that you contact your primary care provider office or proceed to your nearest [facility] ED for evaluation/treatment. 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 - FARXIGA 10 mg tablet - hydrOXYchloroQUINE (PLAQUENIL) 200 mg tablet 2 tablets. - metoprolol tartrate, short acting, (LOPRESSOR) 25 mg tablet - metFORMIN (GLUCOPHAGE) 1,000 mg tablet Take 1,000 mg by mouth twice daily with meals. - atorvastatin (LIPITOR) 40 mg tablet Take 40 mg by mouth once daily. - losartan (COZAAR) 25 mg tablet Take 25 mg by mouth once daily. - glimepiride (AMARYL) 4 mg tablet Take 4 mg by mouth daily with breakfast. - amLODIPine (NORVASC) 2.5 mg tablet Take 5 mg by mouth once daily. Problem List As Of Date 07/19/2024 Noted Resolved PANCREATIC DISEASE NOS [K86.9] 09/20/2008 Sensorineural hearing loss, asymmetrical [H90.3]11/08/2022 Encounter Status:Closed by RANDALL MUÑOZ on 07/19/24 Normal [facility] HIP, UNI W/ Pelvis 2-3 Views on 04-27-2024 HIP, UNI W/ Pelvis 2-3 Views [facility] Imaging Services [address] [facility] [place] [address] HIP, UNI W/ Pelvis 2-3 Views MR#: [id number] Acct: [id number] Name: TEMO WILKES Rep #: [id number] : 1960 M 63 From: Jasper Hercules MD PCP: TED Majano Status: REG CLI Study: HIP, UNI W/ Pelvis 2-3 Views Date of Exam: Exam# [id number] Ordering Dr: Gonzales Mosquera [facility] [employer] REPRESENTATIVE-C PROCEDURE: HIP, UNI W/ PELVIS 2-3 VIEWS REASON FOR EXAM: Right hip pain TECHNIQUE: One view of the pelvis and two views of the right hip COMPARISON: None. FINDINGS: No fracture. No suspicious bone lesion. Normal alignment. Mild joint space narrowing in the right hip Soft tissues are unremarkable. RAD/HIP, UNI W/ Pelvis 2-3 Views IMPRESSION: Mild degenerative changes with no acute osseous abnormality. Reading Location: [facility] CC: TED Mosquera Front Desk Team Member: Signed Normal [facility] PSA,Total- Diagnosticon 03-10 PSA, DIAGNOSTIC < 0.01 Normal 0.0-4.0 [facility] Comment on above: Result Comment: This test was performed using the TPSA assay method for the [employer] chemistry system. Values obtained with different assay methods cannot be used interchangably. When changing PSA assays in the course of monitoring a patient, additional sequential testing should be carried out to confirm baseline values. Performed By: #### L [id number] #### [facility] [address] [place], [address] Orthopedic Visit Reporton Orthopedic Visit Report [facility] [address] [place] [address] OFFICE VISIT Date of Service: 02/25/24 MR#: [id number] Acct: [id number] Name: KATRINTEMO OTTO Rep #: [id number] : 1960 Provider: Dr. Fahad lim DO Age/Sex: 63/M Location: [facility] Status: Signed Intake Vital Signs 02/16/24 13:10 Height 5 ft 9 in Intake Visit Reasons: LEFT HIP Allergies everardo seed Allergy (Severe, Verified 02/25/24 13:45) Anaphylaxis pneumococcal vaccine (From Pneumovax 23) Allergy (Intermediate, Verified 02/25/24 13:45) Rash Swelling Medications ???Medication ???Instructions ???Recorded ???Confirmed ???Type blood sugar diagnostic (FreeStyle #100 ea 09/09/18 02/25/24 Rx Lite Strips) blood-glucose meter (FreeStyle #1 ea 09/09/18 02/25/24 Rx Lite Meter kit) lancets 28 gauge (FreeStyle #200 ea 09/09/18 02/25/24 Rx Lancets) hydroxychloroquine 200 mg tablet 400 mg PO DAILY 10/23/21 02/25/24 History aspirin 81 mg chewable tablet 81 mg PO BREAKFAST 30 days #30 tabs 06/04/22 02/25/24 Rx amlodipine 5 mg tablet 5 mg PO DAILY #90 tabs 06/12/22 02/25/24 Rx atorvastatin 80 mg tablet (Lipitor) 80 mg PO DAILY cholesterol #90 tabs 06/12/22 02/25/24 Rx dapagliflozin propanediol 10 mg 10 mg PO QAM #90 tabs 06/12/22 02/25/24 Rx tablet (Farxiga) losartan 25 mg tablet 37.5 mg (1.5 x 25 mg) PO DAILY 06/12/22 02/25/24 Rx blood pressure 3 months #135 tabs blood pressure monitor (Blood #1 ea 07/02/22 02/25/24 Rx Pressure Kit) clopidogrel 75 mg tablet (Plavix) 75 mg PO DAILY #30 tabs 07/09/22 02/25/24 Rx fenofibrate 54 mg tablet 54 mg PO DAILY #90 tabs 08/20/22 02/25/24 Rx tirzepatide 7.5 mg/0.5 mL 7.5 mg subcut QWEEK 05/26/23 02/25/24 History subcutaneous pen injector (Mounjaro) metoprolol tartrate 25 mg tablet 12.5 mg (1/2 x 25 mg) PO BID #30 10/30/23 02/25/24 Rx tabs ciprofloxacin HCl 500 mg tablet 500 mg PO BID #20 tabs 12/05/23 02/25/24 Rx (Cipro) docusate sodium 100 mg capsule 100 mg PO BID #20 caps 12/05/23 02/25/24 Rx (Colace) hydrocodone-acetaminophen 5-325mg 1 - 2 tab PO Q4H PRN pain 5 days 02/25/24 02/25/24 Rx 5mg-325mg #20 tabs PFSH Medical History Wears glasses Diabetes Blood disorder Fatty liver High cholesterol Injury of head and neck Dietary restriction History of GI bleed Former smoker Aneurysm History of echocardiogram Cardiology follow-up encounter Hx of colonic polyp Leukocytosis Blood in stool Cough Screening PSA (prostate specific antigen) Osteoarthritis Rheumatoid arthritis Groin abscess Back pain History of seizures as a child Right trigeminal neuralgia Lipoma of forehead Mass of face Trevor Barrett syndrome (geniculate herpes zoster) Rheumatoid arthritis Nonrheumatic mitral (valve) insufficiency History of TIA (transient ischemic attack) Essential (primary) hypertension Type II diabetes mellitus Stroke Pneumonia Hyperlipidemia Surgical History Hx of colonoscopy History of excision of lesion History of tonsillectomy History of lymphoid or hematologic neoplasm History of appendectomy History of splenectomy Family History Sister Diabetes Hypertension High cholesterol blood clots Cardiovascular disease Brother Myocardial infarction High cholesterol Heart disease TIA (transient ischemic attack) Cardiovascular disease Mother Myocardial infarction Hypertension Arthritis History of blood transfusion Heart disease Kidney disease Cardiovascular disease Father High cholesterol CVA (cerebral vascular accident) blood clots Cardiovascular disease Grandmother CVA (cerebral vascular accident) Social History housing: house current occupational status: employed 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 Fahad Rao, DO 02/25/24 0807. Part of today???s visit was documented by Lisa PATTERSON, acting as scribe. TEMO WILKES is a 63 year old M with a medical history significant but not limited to TIA, carotid stenosis, hy (more content not included)... Normal [facility] Pelvis without IV Contraston 02-25-2024 Pelvis without IV Contrast [facility] Imaging Services [address] [place] [address] Pelvis without IV Contrast MR#: [id number] Acct: [id number] Name: TEMO WILKES Rep #: [id number] : 1960 M 63 From: Guerrero bess MD PCP: Gonzales Mosquera NP-C Status: REG CLI Study: Pelvis without IV Contrast Date of Exam: 02/24 Exam# [id number] Ordering Dr: Fahad Rao DO [id number] STUDY: CT PELVIS WITHOUT CONTRAST REASON FOR EXAM: Male, 63 years old. ACUTE PAIN L HIP following the fall. RADIATION DOSAGE (If Supplied By Facility): CTDIvol = ( 15.06 ) mGy, DLP = ( 503.93 ) mGycm TECHNIQUE: Transaxial imaging of the pelvis was performed with oral contrast, and without intravenous administration of contrast material. Individualized dose optimization techniques were used for this CT. COMPARISON: None. FINDINGS: Normal urinary bladder. Normal visualized small intestine. Normal visualized colon. There is no pelvic fluid. There is no pelvic mass lesion or lymphadenopathy. There is diffuse atherosclerotic calcification of the pelvic arteries. Normal abdominal wall. No fracture is seen. There is evidence of a 1.7 cm x 1.2 cm cyst in the lateral aspect of the left inferior pubic ramus. Degenerative changes of the symphysis pubis. CT/Pelvis without IV Contrast IMPRESSION: No acute fracture is seen. Electronically Signed: Guerrero Torres MD at 15:29 EST , CC: TED Mosquera; Dr. Fahad Rao DO Front Desk Team Member: Signed Normal [facility] Emergency Department Summary on 02-16-2024 Emergency Department Summary [facility] Medical Records Department [address] [place] [address] Emergency Department Summary 02/16/24 MR#: [id number] Acct: [id number] Name: TEMO WILKES Rep #: [id number] : 1960 63 From: Tutu Jones DO PCP: TED Majano Status:DEP ER Location: ED HPI History of Present Illness Chief Complaint: Lower Extremity Injury Detail of Chief Complaint: Injury to left hip Informant: patient Narrative Narrative: Patient presents to the emergency department complaint of injury to his left hip. Patient states that he was out in the yard and rolled a ball and lost his balance and fell backwards. Patient injured his left hip and had a hard time bearing weight afterwards but was able to hobble into the house. Having hard time bearing weight again today. brought him in today. Patient on Plavix. Denies striking his head or loss consciousness. Denies neck pain. Patient tells me he had prostate surgery to have his prostate removed 3-1/2 weeks ago. [facility] Medical History Wears glasses Diabetes Blood disorder Fatty liver High cholesterol Injury of head and neck Dietary restriction History of GI bleed Former smoker Aneurysm History of echocardiogram Cardiology follow-up encounter Hx of colonic polyp Leukocytosis Blood in stool Cough Screening PSA (prostate specific antigen) Osteoarthritis Rheumatoid arthritis Groin abscess Back pain History of seizures as a child Right trigeminal neuralgia Lipoma of forehead Mass of face Trevor Barrett syndrome (geniculate herpes zoster) Rheumatoid arthritis Nonrheumatic mitral (valve) insufficiency History of TIA (transient ischemic attack) Essential (primary) hypertension Type II diabetes mellitus Stroke Pneumonia Hyperlipidemia Home Medications ???Medication ???Instructions ???Recorded ???Last Taken ???Type blood sugar diagnostic (FreeStyle #100 ea 09/09/18 Unknown Rx Lite Strips) blood-glucose meter (FreeStyle #1 ea 09/09/18 Unknown Rx Lite Meter kit) lancets 28 gauge (FreeStyle #200 ea 09/09/18 Unknown Rx Lancets) hydroxychloroquine 200 mg tablet 400 mg PO DAILY 10/23/21 12/04/23 History aspirin 81 mg chewable tablet 81 mg PO BREAKFAST 30 days #30 tabs 06/04/22 11/23/23 Rx amlodipine 5 mg tablet 5 mg PO DAILY #90 tabs 06/12/22 12/05/23 05:30 Rx atorvastatin 80 mg tablet (Lipitor) 80 mg PO DAILY cholesterol #90 tabs 06/12/22 12/04/23 Rx dapagliflozin propanediol 10 mg 10 mg PO QAM #90 tabs 06/12/22 12/04/23 Rx tablet (Farxiga) losartan 25 mg tablet 37.5 mg (1.5 x 25 mg) PO DAILY 06/12/22 12/05/23 Rx blood pressure 3 months #135 tabs blood pressure monitor (Blood #1 ea 07/02/22 Unknown Rx Pressure Kit) clopidogrel 75 mg tablet (Plavix) 75 mg PO DAILY #30 tabs 07/09/22 11/23/23 Rx fenofibrate 54 mg tablet 54 mg PO DAILY #90 tabs 08/20/22 06/11/23 Rx tirzepatide 7.5 mg/0.5 mL 7.5 mg subcut QWEEK 05/26/23 11/23/23 History subcutaneous pen injector (Mounjaro) metoprolol tartrate 25 mg tablet 12.5 mg (1/2 x 25 mg) PO BID #30 10/30/23 12/05/23 Rx tabs ciprofloxacin HCl 500 mg tablet 500 mg PO BID #20 tabs 12/05/23 Unknown Rx (Cipro) docusate sodium 100 mg capsule 100 mg PO BID #20 caps 12/05/23 Unknown Rx (Colace) oxycodone 5 mg tablet 5 mg PO Q6H PRN pain 3 days #14 12/05/23 Unknown Rx tabs hydrocodone-acetaminophen 5-325mg 1 tab PO Q6H PRN PRN Pain 3 days 01/12/24 Unknown Rx 5mg-325mg #10 TABLETS hydrocodone-acetaminophen 5-325mg 1 tab PO Q4H PRN PRN Pain 2 days 02/16/24 Unknown Rx 5mg-325mg #10 TABLETS Allergy/AdvReac Type Severity Reaction Status Date / Time everardo seed Allergy Severe Anaphylaxis Verified 02/16/24 13:12 pneumococcal vaccine (From Allergy Intermediate Rash Verified 02/16/24 13:12 Pneumovax 23) Swelling Family History Sister Diabetes Hypertension High cholesterol blood clots Cardiovascular disease Brother Myocardial infarction High cholesterol Heart disease TIA (transient ischemic attack) Cardiovascular disease Mother Myocardial infarction Hypertension Arthritis History of blood transfusion Heart disease Kidney disease Cardiovascular disease Father High cholesterol CVA (cerebral vascular accident) blood clots Cardiovascular disease Grandmother CVA (cerebral vascular accident) Surgical History Hx of colonoscopy History of excision of lesion History of tonsillectomy History of lymphoid or hematologic neoplasm History of appendectomy History of splenectomy Social History housing: house current occupational status: employed current o (more content not included)... Normal [facility] HIP, UNI W/ Pelvis 2-3 Views on 02-16-2024 HIP, UNI W/ Pelvis 2-3 Views [facility] Imaging Services [address] [place] [id number] HIP, UNI W/ Pelvis 2-3 Views MR#: [id number] Acct: [id number] Name: TEMO WILKES Rep #: [id number] : 1960 M 63 From: Guerrero bess MD PCP: TED Majano Status: REG ER Study: HIP, UNI W/ Pelvis 2-3 Views Date of Exam: 12/01 Exam# [id number] Ordering Dr: Tutu Jones DO ADDENDUM by Dr. Guerrero Torres MD on 02/16/24 at 2044 ADDENDUM [id number] This is an addendum report. Questionable subtle nondisplaced linear fracture along the left inferior pubic ramus. Electronically Signed: Guerrero Torres MD at 15:14 EST , 02/16/24 1514 Date cc: TED Mosquera; Dr. Tutu Jones, DO * Signed ADDENDUM by Dr. Guerrero Torres MD on 02/16/24 at 1514 RAD/HIP, UNI W/ Pelvis 2-3 Views IMPRESSION: undefined 02/16/24 1521 Date cc: TED Mosquera; Dr. Tutu Jonse, DO * Signed [id number] STUDY: X-RAY - PELVIS AND LEFT HIP REASON FOR EXAM: Male, 63 years old. Left hip pain following a fall. TECHNIQUE: 3 views of the pelvis and hip. COMPARISON: None. FINDINGS: There is a non-specific bowel gas pattern. Normal visualized soft tissue structures. There is narrowing with cortical sclerosis and osteophyte formation of the sacroiliac joint consistent with degenerative osteoarthritic changes. Normal bilateral superior and inferior pubic rami. Normal pubic symphysis. Normal bilateral ischial tuberosities. Normal visualized femoral head. Normal acetabulum. No fracture seen. RAD/HIP, UNI W/ Pelvis 2-3 Views IMPRESSION: No acute abnormality is present. Electronically Signed: Guerrero Torres MD at 15:05 EST , CC: TED Mosquera; Dr. Tutu Jones DO Front Desk Team Member: Signed Normal [facility] Emergency Department Summary on 01-12-2024 Emergency Department Summary [facility] Medical Records Department [address] [place] [address] Emergency Department Summary 01/12/24 MR#: [id number] Acct: [id number] Name: TEMO WILKES Rep #: [id number] : 1960 63 From: Virgilio Luna DO PCP: TED Majano Status:DEP ER Location: ED HPI History of Present Illness Chief Complaint: Chest Other Informant: patient Onset/Context/Timing Onset: Today Mechanism/Context: Fall Quality of Pain: Stabbing Location: Left lower chest Worsened by: Movement, deep breathing Relieved by: Nothing Associated Symptoms Associated Symptoms: Negative for Parasthesias, Weakness, Loss of function, Inability to ambulate, Loss of consciousness or Amnesia Narrative Narrative: Patient presents with left lower rib pain that began after a fall today. Patient states he tripped and fell onto his left side. Patient denies any head injury or loss of consciousness. Patient states his pain is mainly over his left lower ribs. Patient states it is stabbing. Patient states it is worse with movement and deep breathing. Patient states nothing helps the pain. Patient denies any shortness of breath. [facility] Medical History Wears glasses Diabetes Blood disorder Fatty liver High cholesterol Injury of head and neck Dietary restriction History of GI bleed Former smoker Aneurysm History of echocardiogram Cardiology follow-up encounter Hx of colonic polyp Leukocytosis Blood in stool Cough Screening PSA (prostate specific antigen) Osteoarthritis Rheumatoid arthritis Groin abscess Back pain History of seizures as a child Right trigeminal neuralgia Lipoma of forehead Mass of face [place] Barrett syndrome (geniculate herpes zoster) Rheumatoid arthritis Nonrheumatic mitral (valve) insufficiency History of TIA (transient ischemic attack) Essential (primary) hypertension Type II diabetes mellitus Stroke Pneumonia Hyperlipidemia Home Medications ???Medication ???Instructions ???Recorded ???Last Taken ???Type blood sugar diagnostic (FreeStyle #100 ea 09/09/18 Unknown Rx Lite Strips) blood-glucose meter (FreeStyle #1 ea 09/09/18 Unknown Rx Lite Meter kit) lancets 28 gauge (FreeStyle #200 ea 09/09/18 Unknown Rx Lancets) hydroxychloroquine 200 mg tablet 400 mg PO DAILY 10/23/21 12/04/23 History aspirin 81 mg chewable tablet 81 mg PO BREAKFAST 30 days #30 tabs 06/04/22 11/23/23 Rx amlodipine 5 mg tablet 5 mg PO DAILY #90 tabs 06/12/22 12/05/23 05:30 Rx atorvastatin 80 mg tablet (Lipitor) 80 mg PO DAILY cholesterol #90 tabs 06/12/22 12/04/23 Rx dapagliflozin propanediol 10 mg 10 mg PO QAM #90 tabs 06/12/22 12/04/23 Rx tablet (Farxiga) losartan 25 mg tablet 37.5 mg (1.5 x 25 mg) PO DAILY 06/12/22 12/05/23 Rx blood pressure 3 months #135 tabs blood pressure monitor (Blood #1 ea 07/02/22 Unknown Rx Pressure Kit) clopidogrel 75 mg tablet (Plavix) 75 mg PO DAILY #30 tabs 07/09/22 11/23/23 Rx fenofibrate 54 mg tablet 54 mg PO DAILY #90 tabs 08/20/22 06/11/23 Rx tirzepatide 7.5 mg/0.5 mL 7.5 mg subcut QWEEK 05/26/23 11/23/23 History subcutaneous pen injector (Mounjaro) metoprolol tartrate 25 mg tablet 12.5 mg (1/2 x 25 mg) PO BID #30 10/30/23 12/05/23 Rx tabs ciprofloxacin HCl 500 mg tablet 500 mg PO BID #20 tabs 12/05/23 Unknown Rx (Cipro) docusate sodium 100 mg capsule 100 mg PO BID #20 caps 12/05/23 Unknown Rx (Colace) oxycodone 5 mg tablet 5 mg PO Q6H PRN pain 3 days #14 09/27/24 Unknown Rx tabs hydrocodone-acetaminophen 5-325mg 1 tab PO Q6H PRN PRN Pain 3 days 01/12/24 Unknown Rx 5mg-325mg #10 TABLETS Allergy/AdvReac Type Severity Reaction Status Date / Time everardo seed Allergy Severe Anaphylaxis Verified 01/12/24 18:10 pneumococcal vaccine (From Allergy Intermediate Rash Verified 01/12/24 18:10 Pneumovax 23) Swelling Family History Sister Diabetes Hypertension High cholesterol blood clots Cardiovascular disease Brother Myocardial infarction High cholesterol Heart disease TIA (transient ischemic attack) Cardiovascular disease Mother Myocardial infarction Hypertension Arthritis History of blood transfusion Heart disease Kidney disease Cardiovascular disease Father High cholesterol CVA (cerebral vascular accident) blood clots Cardiovascular disease Grandmother CVA (cerebral vascular accident) Surgical History Hx of colonoscopy History of excision of lesion History of tonsillectomy History of lymphoid or hematologic neoplasm History of appendectomy History of splenectomy Social History housing: house current o (more content not included)... Normal [facility] Ribs Uni Min 3V w/PA Cheston 01-12-2024 Ribs Uni Min 3V w/PA Chest [facility] Imaging Services [address] [place] [address] Ribs Uni Min 3V w/PA Chest MR#: [id number] Acct: [id number] Name: TEMO WILKES Rep #: [id number] : 1960 M 63 From: Alex Pruitt MD PCP: TED Majano Status: REG ER Study: Ribs Uni Min 3V w/PA Chest Date of Exam: 01/11 Exam# [id number] Ordering Dr: Virgilio Luna DO [id number] STUDY: X-RAY - UNILATERAL RIBS ( LEFT ) WITH CHEST REASON FOR EXAM: Male, 63 years old. Fall TECHNIQUE - RIBS: 4 view(s) of the ribs. TECHNIQUE - CHEST: PA COMPARISON: None. FINDINGS - RIBS: Normal visualized ribs without a demonstrated fracture. FINDINGS - CHEST: The lungs are clear and expanded. There is no demonstrated pleural abnormality. Normal size heart. Normal mediastinum and jamey. Normal visualized pulmonary arteries. Mildly calcified aortic arch and descending thoracic aorta. Surgical clips in the left chest wall and axilla Normal visualized thoracic spine. Normal visualized ribs, clavicles, and shoulders. There is no demonstrated abnormality of the visualized soft tissue structures of the upper abdomen. RAD/Ribs Uni Min 3V w/PA Chest IMPRESSION: RIBS: Normal x-ray examination of the ribs. CHEST: No acute cardiopulmonary pathology. Electronically Signed: Alex Pruitt MD at 19:48 EST Reading Location ID and State: [address] [place] [address] Tel , Service support , CC: TED Mosquera; Dr. Virgilio Luna DO Front Desk Team Member: Signed Normal [facility] Office Visit Reporton 2023 Office Visit Report [facility] [address] [facility] [place] [address] OFFICE VISIT Date of Service: 11/03/23 MR#: [id number] Acct: [id number] Patient: TEMO WILKES Rep #: [id number] : 1960 Provider: TK Johnson Age/Sex: 63/M Location: [facility] Status: Signed Employer Purchased Covid Test Note: Patient here today for Covid Testing, requested by their Employer. Assessment and Plan Assessment and Plan Orders: Orders POC Cepheid Covid, FluAB, RSV 11/03/23 Dixon Tobias PA, PA Medications: On Hold clopidogrel (Plavix) Hold Comment: Resume on 12/19/23. 75 mg PO DAILY [address] Luis Valladares MD 12/22/23 09 Date Dixon Spears Signature: Date (if applicable) CC: Normal [facility] Bedside Glucoseon 12-08-2023 FINGERSTICK GLU 110 mg/dL High 74-106 [facility] Comment on above: Result Comment: POLO GEMENT OF PATIENT CARE PER NURSING PROTOCOL Performed By: #### L 501.080 ####[facility] [id number] [facility] [address] Bedside Glucoseon 12-06-2023 FINGERSTICK GLU 121 mg/dL High 74-106 [facility] Comment on above: Result Comment: POLO GEMENT OF PATIENT CARE PER NURSING PROTOCOL Performed By: #### L 501.080 #### [facility] [address] [place], [address] Discharge Instructionon 11-09 Discharge Instruction [facility] Medical Records Department [address] [place] [address] Instructions for Home/Discharge Instructions 12/05/23 1054 MR#: [id number] Acct: [id number] Name: TEMO WILKES Rep #: [id number] : 1960 63 From: Luis Valladares MD PCP: TED Majano Status[place] [facility] [place] Instructions Diet Discharge Diet: No restrictions Activity Discharge Activity: Return to Normal Activity and May Not Drive (while taking narcotic pain medications.) Additional Activity Instructions:: no lifting Dressing / Incision Call your doctor if you observe: Fever of 101 or Higher Catheter: Cameron to leg bag and Cameron to large bag Drain: Trinidad Follow Up Care Please Follow Up With: Luis Valladares MD When: Call [phone] for an appointment, 2 weeks to remove cameron Test Results: Test results from this visit will be discussed in further detail at your follow-up appointment, if applicable. Discharge Plan Admission Primary Reason for Your Visit: robotic radical prostatectomy Attending Provider: Luis Valladares Primary Care Provider: Gonzales Mosquera [facility] Instructions Print Language: Hungarian Discharge Orders/Prescriptions Prescriptions: New ciprofloxacin HCl [Cipro] 500 mg tablet 500 mg PO BID Qty: 20 0RF docusate sodium [Colace] 100 mg capsule 100 mg PO BID Qty: 20 0RF oxycodone 5 mg tablet 5 mg PO Q6H PRN (Reason: pain) 3 Days Qty: 14 0RF Continued (DME) FreeStyle Lite Strips Strip See Rx Instructions .ROUTE .MEDSUPPLY Qty: 100 3RF Rx Instructions: check blood glucose daily for type 2 DM (DME) blood-glucose meter [FreeStyle Lite Meter] Kit See Rx Instructions .ROUTE .MEDSUPPLY Qty: 1 0RF Rx Instructions: As directed, check blood glucose daily for type 2 DM (DME) lancets [FreeStyle Lancets] 28 gauge misc See Rx Instructions .ROUTE .MEDSUPPLY Qty: 200 3RF Rx Instructions: check blood glucose daily for type 2 DM hydroxychloroquine 200 mg tablet 400 mg PO DAILY amlodipine 5 mg tablet 5 mg PO DAILY Qty: 90 3RF atorvastatin [Lipitor] 80 mg tablet 80 mg PO DAILY Qty: 90 3RF Farxiga 10 mg tablet 10 mg PO QAM Qty: 90 3RF losartan 25 mg tablet 37.5 mg PO DAILY 90 Days Qty: 135 3RF Mounjaro 7.5 mg/0.5 mL pen injector 7.5 mg subcut QWEEK (DME) blood pressure monitor [Blood Pressure Kit] Kit See Rx Instructions .ROUTE .MEDSUPPLY Qty: 1 0RF Rx Instructions: Check blood pressure daily for hypertension I10 fenofibrate 54 mg tablet 54 mg PO DAILY Qty: 90 3RF metoprolol tartrate 25 mg tablet 12.5 mg PO BID Qty: 30 0RF Held clopidogrel [Plavix] 75 mg tablet 75 mg PO DAILY Qty: 30 5RF Hold Instructions: Resume on 12/19/23. aspirin 81 mg Tablet,Chewable 81 mg PO BREAKFAST 30 Days Qty: 30 0RF Hold Instructions: Resume on 12/19/23. Referrals / Follow Up: Lius Valladares MD [Med Staff - Active Staff] - Gonzales Mosquera NP-C [Primary Care Provider] - Disposition Disposition (needs filled in before D/C Order can be placed): Home, Self Care 12/05/23 1055 Luis Valladares MD CC: NEREYDAC Gonzales Mosquera Signed [facility] MR/POSTOP.ANEon 12-05-2023 MR/POSTOP.[facility] Medical Records Department [address] [place] [address] Anesthesia Postop Eval I 12/05/23 1145 MR#: [id number] Acct: [id number] Name: TEMO WILKES Rep #: [id number] : 1960 63 From: Juan Miguel Contreras PCP: TED Majano Status:REG SDC Y Race: C Location: [place] [address] Anesthesia: Postop Eval I Current Vital Signs Temperature: 97.4 F Pulse Rate: 97 Blood Pressure: 126/55 Respiratory Rate: 16 Pulse Ox: 92 Oxygen Delivery Method: Room Air Assessment Airway patent: Yes Spontaneous unlabored respirations: Yes Mental status: Awake and Calm nausea: No Vomiting: No Anesthesia Complication: No Fluid Hydration Crystalloid volume administer (ml): 1,800 Total IV fluid infused: 1,800 Progress Note Anesthesia document: Postop Eval 1 completed: Yes 12/05/23 1146 Date Juan Miguel Spears Signature: Date CC: Signed [facility] [id number] 12-05-2023 MR/POSTOPAN2 [facility] Medical Records Department [address] [place] [address] Anesthesia Postop Eval II 12/05/23 1212 MR#: [id number] Acct: [id number] Name: TEMO WILKES Rep #: [id number] : 1960 63 From: Sigifredo Biggs MD PCP: Gonzales Mosquera, [employer]IVE-C Status:ADM JOSÉ LUIS Y Race: C Location: [place] [address] Anesthesia Postop Eval I Sum Postop Eval Completion status Anesthesia document: Postop Eval 1 completed: Yes Anesthesia Postop Eval I Summary Anesthesia Postop Eval I Summary: Anesthesia Postop Eval I: Assessment Summary Airway patent Yes 12/05/23 11:46 RENAL DIETITIAN.MDOT Spontaneous unlabored Yes 12/05/23 11:46 RENAL DIETITIAN.MDOT respirations Mental status Awake,Calm 12/05/23 11:46 RENAL DIETITIAN.MDOT nausea No 12/05/23 11:46 RENAL DIETITIAN.MDOT Vomiting No 12/05/23 11:46 RENAL DIETITIAN.MDOT Anesthesia Postop Eval I: Fluid Summary Crystalloid volume administer 1,800 12/05/23 11:46 RENAL DIETITIAN.MDOT (ml) Colloids volume administered ( ml) Blood Product volume administered (ml) Total IV fluid infused 1,800 12/05/23 11:46 RENAL DIETITIAN.MDOT Anesthesia Postop Eval I: Summary Notes Anesthesia Complication No 12/05/23 11:46 RENAL DIETITIAN.MDOT Anesthesia Complication Comment: Post-operative progress note Anesthesia: Postop Eval II Evaluation Mental status: Awake Pain Level: 0 nausea: No Vomiting: No 12/05/23 1212 Date Sigifredo Biggs MD Cosigner Signature: Date CC: Signed Normal [facility] Operative Reporton 4 Operative Report [facility] Medical Records Department [address] [place] [address] Operative Report 12/05/23 1055 MR#: [id number] Acct: [id number] Name: TEMO WILKES Rep #: [id number] : 1960 63 From: Luis Valladares MD PCP: TED Majano Status:[place] [facility] [place]: [place] [address] Report of Operation Date of Procedure: 12/05/23 Pre-Operative Diagnosis: Prostate cancer Post-Operative Diagnosis: Prostate cancer Surgery/Procedure Performed:: Laparoscopic robotic assisted radical prostatectomy, Retzius approach, total pelvic lymph node dissection Description of Surgical Findings:: Patient was identified in the preoperative area and marked and seen we talked about surgery remove his prostate was involved and potential outcomes. We talked about the potential to lose erections and also have bladder control problems after surgery including stress incontinence. Patient's questions were addressed and he signed consent form and we will plan to proceed today with a robotic radical prostatectomy Retzius. Approach with bilateral lymph node dissection. Patient is taken back to the operating room after smooth induction of anesthesia he was placed upon the table make sure all his pressure points were padded. We used the pink foam and pink foam secure system to secure him on the table he was placed in dorsolithotomy position with the legs in stirrups making sure that all his pressure points were padded we did a tilt test to make sure he did not slide in the bed. And the patient was placed flat in the bed his penis and testicles and pelvic area were prepped and in the abdomen was also prepped with chlorhexidine prep. Patient's abdomen and penis and testicles were then draped in usual sterile fashion. I then identified the umbilicus infiltrated right above the umbilicus and a small incision, probed the wound with a hemostat identified the fascia and then used a Veress needle to advance through the fascia into the peritoneal cavity. We then filled the peritoneal cavity CO2 gas and obtained a pneumoperitoneum. I then placed my first trocar into the abdomen this was to be the camera trocar. After I placed the camera trocar then the other trocars were placed under direct visualization placed a right arm trocar to left arm trocars and air seal port and a suction trocar for my pathology assistant. We then placed the patient in full Trendelenburg and the robot was then docked. Then using a 30 degree lens we placed the instruments into the abdomen under direct visualization and started by first mobilizing the sigmoid colon. The sigmoid colon and the white line of Toldt was incised and mobilized off the lateral sidewall to allow full retraction of the colon from the pelvis. Once this was fully accomplished then I was able to get into the posterior space behind the bladder we then identified the vas deferens on the right side. I then traced the right vas deferens all the way down to the prostate we incised the peritoneum over the prostate identified the right vas deferens and then the left vas deferens. Identified the several vesicles below this. I then went below this and identified Denonvilliers' fascia and incised the Denonvilliers' fascia in the midline and then created a space between the rectum and the prostate I then dissected all the way to the apex. We then flipped the camera 30 degrees up to get a bit better visualization of the prostate. I then very gently dissected the Denonvilliers' fascia off the posterior aspect of the prostate all the way to the apex of sliding the tissue off the prostate to get to the semipseudocapsule on the prostate with unable to get to the lateral edge of the prostate and then to release neurovascular bundles on both sides I then started between the apex of the prostate to release neurovascular bundle to peel the neurovascular 1 off the prostate making sure I stayed around the apex without violating the prostate capsule I then worked my way back toward the base of the prostate releasing the neurovascular under posteriorly back to the base of the prostate. This was done on the right side we did the same procedure in the left side releasing the neurovascular bundle posteriorly all the way back to the base of the prostate. I then pulled out and look at the vas deferens some vesicles I transected the vas deferens and then dissected the vas deferens and some vesicles en bloc of the lateral sidewall was using minimal electrocautery and sharp dissection to free up the vas deferens and vesicle I then was able to laterally retract the right vas deferens medially and then started working to get the space between the edge of the prostate and the pseudocapsule identified the pseudocapsule and then coming to the pedicle the prostate with bipolar coagulation on the right side and then following the capsule all the way toward the apex and then following up along the (more content not included)... Normal [facility] Surgery Specimen Level Von 0 12-05-2023 Surgery Specimen Level V Patient Age/Sex Location Account Attending Physician TEMO WILKES 63/M MS3 [id number] Dr. Luis Valladares MD Specimen: [id number] Received: 12/05/23 Status: NIGEL Cobbdeena Num: [id number] Spec Type: PROSTATE Subm Dr: Dr. Luis Valladares MD HEADER OPERATION: Laparoscopic robotic radical prostatectomy, bilateral lymphadenectomy PRE-OP DIAGNOSIS: Prostate cancer TISSUE SUBMITTED: A- Right pelvic lymph node, B- Left pelvic lymph node, C- Prostate MICROSCOPIC DIAGNOSIS A. Right pelvic lymph node, regional resection: Four out of four lymph nodes, negative for metastatic carcinoma. B. Left pelvic lymph node, regional resection: A piece of fibroadipose tissue. See comment. C. Prostate, radical prostatectomy: Prostatic adenocarcinoma. See cancer summary in the comment section. 12/09/2023 COMMENT B. Lymph node tissue is not identified. C. PROSTATE CANCER (RADICAL) SUMMARY: Procedure: Radical Prostatectomy Prostate Size: Weight: 33.9gm Size: 4.0cm transversely, 2.5cm interior-posteriorly, 2.5cm craniocaudally Histologic Type: Adenocarcinoma Histologic Grade: Curt Grade 4+5=9 Percent of Pattern 4: About 50% Percent of Pattern 5: 30% Tertiary pattern- Cordova grade 3 is also noted 20% Intraductal Carcinoma: Present Tumor Quantitation: Estimated percentage of prostate involved by tumor: 80%. Tumor involves both right and left lobes, apical, mid and basal portion of prostate. Dominant nodule: Left prostate measuring 2.5 x 2.5 x 2.0cm The tumor in the right lobe measures approximately 1 x 1 x 0.2 cm, measured microscopically. Extraprostatic Extension: Present, focal Location of extraprostatic extension: Left lateral Urinary Bladder Neck Invasion: not identified. Seminal Vesicle Invasion: Present, both right and left Lymphvascular Invasion: Not identified Perineural Invasion: Present, frequent Margins: Margins involved by invasive carcinoma The largest focus of invasive carcinoma is present at the apical margin and measures 1.3 Patient Age/Sex Location Account Attending Physician TEMO WILKES 63/M MS3 [id number] Dr. Luis Valladares MD x 0.9cm (measured microscopically) Focality: Multifocal Location of positive margins: apical, basal portion of prostate, left lateral prostate, and left seminal vesicle. Margins positive in the area of extraprostatic excision: Not identified Curt pattern at positive margins: 3+4 =7 Regional Lymph Nodes: Number of lymph nodes involved by carcinoma: 0 Total number of lymph nodes examined: 4 Treatment Effect: No known presurgical therapy Additional Pathologic Findings: Focal high-grade prostatic intraepithelial neoplasia (HGPIN), chronic inflammation, and basal cell hyperplasia Ancillary studies: Not performed PATHOLOGIC STAGE: pT3b pN0 pMx The above summary is in compliance with [employer] (CAP) Cancer Protocols Checklist and [place] Joint Committee on Cancer (AJCC), Staging Manual, 8th Ed. Please make reference to previous specimen [id number] right prostate, apex, mid, and left prostate, apex, mid and base with diagnosis of adenocarcinoma. Case has been reviewed in consultation with Dr. Lowry who concurs with the above diagnosis. IDC:AM MICROSCOPIC DESCRIPTION Slides are reviewed. GROSS DESCRIPTION A. Received in fixative is one container labeled with the patient's name and designated Right pelvic lymph node. The specimen consists of multiple pieces of yellow adipose tissue containing nodules measuring in aggregate 2.5 x 2.5 x 0.3cm. The entire specimen is submitted in one cassette. B. Received in fixative is one container labeled with the patient's name and designated Left pelvic lymph node. The specimen consists of a piece of adipose tissue measuring 1.0 x 1.0 x 0.1cm. No obvious lymph node is noted. The entire specimen is submitted in one cassette. C. Received in fixative is one container labeled with the patient's name and designated prostate. The specimen consists of a radical prostatectomy specimen consisting of prostate and bilateral seminal vesicles and vas deferens. The specimen weighs 33.9 gm. The prostate measures 4.5 cm transversely, 2.5 cm anterior-posteriorly and 2.5 cm craniocau (more content not included)... Normal [facility] Comment on above: Performed By: #### P SUV #### [facility] [facility] [address] [place], [address] Basic Metabolic Profile (BMP )on 11-26-2023 BUN/CRE 22.1 RATIO High 10-20 [facility] Comment on above: Performed By: #### L 500.2500, L501.9985, L100.0500 ####[facility] [address] [place], [address] CA,Total 9.6 mg/dL Normal 8.5-10.1 [facility] Comment on above: Performed By: #### L 500.2500, L501.9985, L100.0500 ####[facility] [address] [place], [address] Chloride [Moles/Vol] 107 mmol/L Normal 98-107 [facility] Comment on above: Performed By: #### L 500.2500, L501.9985, L100.0500 ####[facility] [address] [place], [address] CO2 [Moles/Vol] 26.0 mmol/L Normal 21.0-32.0 [facility] Comment on above: Performed By: #### L 500.2500, L501.9985, L100.0500 ####[facility] [address] [place], [address] Creatinine [Mass/Vol] 0.82 mg/dL Normal 0.70-1.30 [facility] Comment on above: Result Comment: The validity of the calculated GFR GFRAA in patients over 70 years has not been determined. Clinical correlation is essential. Performed By: #### L 500.2500, L501.9985, L100.0500 ####[facility] [address] [place], [address] EST GFR - AA 123 mL/min Normal >60 [facility] Comment on above: Result Comment: Afri can Italian GFR Calc Performed By: #### L 500.2500, L501.9985, L100.0500 ####[facility] [address] [place], [address] GAP 7 Normal 5-15 [facility] Comment on above: Performed By: #### L 500.2500, L501.9985, L100.0500 ####[facility] [address] [place], [address] GFR/1.73 sq M.predicted among non-blacks MDRD (S/P/Bld) [Vol rate/Area] 102 mL/min/{1.73_m2} Normal >60 [facility] Comment on above: Result Comment: Non- GFR Calc Performed By: #### L 500.2500, L501.9985, L100.0500 ####[facility] [address] [place], [address] Glucose [Mass/Vol] 90 mg/dL Normal 74-106 [facility] Comment on above: Performed By: #### L 500.2500, L501.9985, L100.0500 ####[facility] [address] [place], [address] Potassium [Moles/Vol] 3.7 mmol/L Normal 3.5-5.1 [facility] Comment on above: Result Comment: Slig ht Hemolysis, Result may be falsely increased. Performed By: #### L 500.2500, L501.9985, L100.0500 ####[facility] [address] [place], [address] Sodium [Moles/Vol] 140 mmol/L Normal 136-145 [facility] Comment on above: Performed By: #### L 500.2500, L501.9985, L100.0500 ####[facility] [address] [place], [address] Urea nitrogen [Mass/Vol] 18 mg/dL Normal 7-18 [facility] Comment on above: Performed By: #### L 500.2500, L501.9985, L100.0500 ####[facility] [address] [place], [address] CBC-Complete Blood Cnt No Di ffon 11-26-2023 Erythrocyte distribution width (RBC) [Ratio] 13.1 % Normal 11.6-14.6 [facility] Comment on above: Performed By: #### L 500.2500, L501.9985, L100.0500 ####[facility] [address] [place], [address] Hematocrit (Bld) [Volume fraction] 41.1 % Normal 40-54 [facility] Comment on above: Performed By: #### L 500.2500, L501.9985, L100.0500 ####[facility] [address] [place], [address] Hemoglobin (Bld) [Mass/Vol] 13.9 g/dL Normal 13.0-16.5 [facility] Comment on above: Performed By: #### L 500.2500, L501.9985, L100.0500 ####[facility] [address] [place], [address] MCH (RBC) [Entitic mass] 30.8 pg Normal 27.0-32.0 [facility] Comment on above: Performed By: #### L 500.2500, L501.9985, L100.0500 ####[facility] [address] [place], [address] MCHC (RBC) [Mass/Vol] 33.8 g/dL Normal 32-36 [facility] Comment on above: Performed By: #### L 500.2500, L501.9985, L100.0500 ####[facility] [address] [place], [address] MCV (RBC) [Entitic vol] 91.1 fL Normal 80-94 [facility] Comment on above: Performed By: #### L 500.2500, L501.9985, L100.0500 ####[facility] [address] [place], [address] Platelet mean volume (Bld) [Entitic vol] 10.9 fL Normal 6.2-12.0 [facility] Comment on above: Performed By: #### L 500.2500, L501.9985, L100.0500 ####[facility] [address] [place], [address] Platelets (Bld) [#/Vol] 417 10*3/uL Normal 150-450 [facility] Comment on above: Performed By: #### L 500.2500, L501.9985, L100.0500 ####[facility] [address] [place], [address] RBC (Bld) [#/Vol] 4.51 10*6/uL Low 4.6-6.2 [facility] Comment on above: Performed By: #### L 500.2500, L501.9985, L100.0500 ####[facility] [address] [place], [address] RDW SD 43.8 fl Normal 35.1-43.9 [facility] Comment on above: Performed By: #### L 500.2500, L501.9985, L100.0500 ####[facility] [address] [place], [address] WBC (Bld) [#/Vol] 13.3 10*3/uL High 4.4-11.0 [facility] Comment on above: Performed By: #### L 500.2500, L501.9985, L100.0500 ####[facility] [address] [place], [address] Hemoglobin A1con 11-26-2023 HbA1c (Bld) [Mass fraction] 6.2 % High 3.8-5.6 [facility] Comment on above: Result Comment: Norm al < 5.7 % Prediabetic 5.7 - 6.4 % Diabetic >or= 6.5 % Please note range changes. Performed By: #### L 500.2500, L501.9985, L100.0500 ####[facility] [address] [place], [address] [facility] 10-29-2023 CNPN Telephone (NECVS8) TEMO WILKES ([id number]) 1960 Date Time Provider Department 10/29/23 JASE GIBSON NECVS8 During your visit today, we recorded the following information about you: Aristeo Varsha Muñoz 10/29/2023 1:49 PM Signed CV PHONE Name of caller : Temo Relationship to patient : Self If not self Will need patient permission to release results or disclose health information with called documented in . Patient identified by Name and Date of . ( Temo Wilkes, 1960). Yes Number to return call [phone] Reason for Call: Patient Update: patient states he found out 3 weeks ago he has prostate cancer and has to have surgery, patient states he will have Dr. Valladares fax over medical clearance form. Thank you calling [facility] [place]. You will receive a return call within 48 hours ( or 2 business days if close to the weekend). If you feel that this is an urgent issue and needs immediate attention, it is recommended that you contact your primary care provider office or proceed to your nearest Urgent Care Center of Emergency Room ED for evaluation/treatment. 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 Valladares fax over medical clearance form. Prescriptions as of 11/05/2023 - albuterol HFA (PROVENTIL HFA, VENTOLIN HFA) 90 mcg/actuation inhaler - doxycycline monohydrate (MONODOX) 100 mg capsule - predniSONE (DELTASONE) 20 mg tablet - clopidogrel (PLAVIX) 75 mg tablet Take 75 mg by mouth once daily. - FARXIGA 10 mg tablet - hydrOXYchloroQUINE (PLAQUENIL) 200 mg tablet 2 tablets. - metoprolol tartrate, short acting, (LOPRESSOR) 25 mg tablet - metFORMIN (GLUCOPHAGE) 1,000 mg tablet Take 1,000 mg by mouth twice daily with meals. - atorvastatin (LIPITOR) 40 mg tablet Take 40 mg by mouth once daily. - losartan (COZAAR) 25 mg tablet Take 25 mg by mouth once daily. - glimepiride (AMARYL) 4 mg tablet Take 4 mg by mouth daily with breakfast. - amLODIPine (NORVASC) 2.5 mg tablet Take 5 mg by mouth once daily. 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]11/08/2022 Encounter Status:Closed by ELIZABETH ROCA on 11/05/23 Normal [facility] PET/CT Tumor Base -Thigh Ini ton 10-28-2023 PET/CT Tumor Base -Thigh Init [facility] Imaging Services [address] [place] [address] PET/CT Tumor Base -Thigh Init MR#: [id number] Acct: [id number] Name: TEMO WILKES Rep #: [id number] : 1960 M 63 From: Amrit Alfaro PCP: Gonzales Mosquera [employer]-C Status: REG CLI Study: PET/CT Tumor Base -Thigh Init Date of Exam: Exam# [id number] Ordering Dr: Luis Valladares MD [id number] EXAMINATION: F [address] HISTORY: 63-year-old male with history of primary prostate carcinoma presenting for initial staging examination. COMPARISON EXAMINATION: None available INDEX LESION SIZE PROMISE SCORE SUV TUMOR/PAROTID RATIO INTERPRETATION Prostate gland 23.6 mm 3 49.83 2.4 Fulfills quantitative criteria for neoplasia TECHNIQUE: Following the intravenous administration of 9.15 mCi of F 18 Pylarify PSMA- via the right wrist, image acquisitions of the head, neck, chest, abdomen and pelvis contemporaneously interpreted with the CT of neck, chest, abdomen and pelvis dated 10/28/2023 to the level of the mid thigh at 70 minutes post-tracer distribution reveal: The examination was interpreted using the EANM (Fanti et al., Journal of Nuclear Medicine Molecular Imaging 44:1622, 2017) and PROMISE (Eiemi et al., Journal of Nuclear Medicine 59:469, 2018) interpretive criteria. HEIGHT: 69 inches WEIGHT: 177 pounds PSMA expression score PROMISE criteria: High (3): SUV ? parotid-salivary gland, intermediate (2): SUV ? liver, low (1): > blood pool, < liver, (0): < blood pool. SUV reference values: Parotid glands 20.47 Normal liver parenchyma 7.9 Blood pool 1.5 FINDINGS: Head/Neck: Symmetric radiopharmaceutical is defined in the right and left parotid and submandibular glands. Physiologic uptake is identified in the nasal cavity. There is no evidence of abnormal increased tracer uptake within the cranial vault. CHEST: There is no evidence of abnormal increased tracer uptake within the context of the bilateral hemithorax pulmonary parenchyma, mediastinal structures, right-left thoracic perihilum, the bilateral periclavicular and axillary regions. Pertinent chest CT findings are as follows. Atherosclerotic calcification is defined in the thoracic aorta. Coronary arterial calcification is observed. Surgical clips are identified in the left axilla. There is a soft tissue density noted in the right axilla with a calculated standard uptake value of 2.08 and PROMISE score of 1. Mediastinal soft tissue densities demonstrate no evidence of increased tracer uptake. There are no parenchymal densities-nodules defined in the right and left hemithorax with quantitatively significant increased radiotracer uptake. Abdomen/Pelvis: Facilitated radiotracer is defined in the lower pelvis and left midline caudal to the urinary bladder associated with the prostate gland. Uptake extends from the apex to base generating a calculated standard uptake value of 49.83 and PROMISE score of 3. The maximal axial diameter of the metabolic, morphologic abnormality is 23.6 mm. Normal physiologic uptake is noted in the hepatic and splenic parenchyma. There is symmetric demonstration of the right and left kidneys, normal uptake in the urinary bladder and visualized intestinal tract. Review of CT of the abdomen and pelvis reveals the following. Abdominal aortic calcification is defined without evidence of aneurysm. Abdominal and pelvic arterial calcification is encountered. Calcified phlebolith formation is noted in the bilateral lower hemipelvis. Right and left inguinal soft tissue densities are ametabolic. SKELETAL: Degenerative changes are defined in the axial skeletal structures without evidence of increased radiotracer uptake. PET/PET/CT Tumor Base -Thigh Init IMPRESSION: 1. ABNORMAL EXAMINATION INDICATIVE OF MALIGNANT-VIABLE NEOPLASM. 2. Enhanced tracer uptake identified in the region of the prostate gland fulfills quantitative criteria for neoplastic transformation. 3. There is no definitive scintigraphic evidence of diffuse metastatic disease. Electronic Signature Amrit Joiner D.O. Accurate Quantification of SUVs and standardized PROMISE scores for this report are calculated using the exclusive [employer], (U.S. Patent No. [phone] [place] patent [phone] ). Standardization and correction of the FDG SUV metric exclusively available with [employer] intellectual property, allow for vendor non-specific objective quantitative sequential FDG PET-CT comparison and otherwise unobtainable optimization of the sensitivity and specificity of the examination. https://[employer] (formerly [employer]) Electronically Signed: Amrit Joiner DO at 15:36 EDT Reading Location ID and State: 795 / [place] Tel , Service support 1- (more content not included)... Normal [facility] 34BE12 (add)on 10-13-2023 34BE12 (add) ------- Patient Age/Sex Location Account Attending Physician [facility]ILKES 63[facility] [id number] [facility]. Luis Valladares MD Specimen: [id number] Received: 10/15/23 Status: NIGEL Mares Num: [id number] Spec Type: IMMUNO Subm Dr: Dr. Luis Valladares MD PHYSICIAN INSTITUTION [place] [address] SPECIMEN INFORMATION: Tissue Source: A- right apex, B- right mid, C- right base, D- left apex, E- left mid, F- left base Clinical Info: Elevated PSA Specimen Number: [id number] A, B, C, D, E, F CPT code: 61932,76382c75 METHODOLOGY: Deparaffinized sections of prefer/formalin-fixed tissue or PAP/DQ stained slides are incubated with monoclonal/polyclonal antibodies/oligonucleotide probes. Localization is made via biotin free immunoperoxidase method. Appropriate controls are performed and reacted as expected. Results on target cell population are indicated in the following table: RESULTS: ANTIBODY / CLONE RESULT Block A P40 (BC28) negative 34BE12 (34BE12) negative Block B P40 (BC28) negative 34BE12 (34BE12) negative Block C P40 (BC28) negative 34BE12 (34BE12) negative Block D P40 (BC28) negative 34BE12 (34BE12) negative Block E P40 (BC28) negative 34BE12 (34BE12) negative Block F P40 (BC28) negative 34BE12 (34BE12) negative These tests were developed and their performance characteristics determined by [facility]. They may not have been cleared or approved by the U.S. Food and Drug Administration. The FDA has determined that such clearance or approval is not necessary. Patient Age/Sex Location Account Attending Physician [facility] WILKES 63[facility] [id number] Dr. Luis Valladares MD RESULTS: (Continued) The above immunohistochemical/dualISH markers are ordered and reviewed by the Pathologist. INTERPRETATION: A. Prostate, right apex, core biopsy: Adenocarcinoma. B. Prostate, right mid, core biopsy: Adenocarcinoma. C. Prostate, right base, core biopsy: Adenocarcinoma. D. Prostate, left apex, core biopsy: Adenocarcinoma. E. Prostate, left mid, core biopsy: Adenocarcinoma. F. Prostate, left base, core biopsy: Adenocarcinoma. AM/mr 10/16/2023 Signed (signature on file) Dr. Josh Lowry DO 10/16/23 1157 Normal [facility] Comment on above: Performed By: #### P 34BE12. ####[facility] [address] [place], [address] PROSTATE BXon 10-13-2023 PROSTATE BX ------- Patient Age/Sex Location Account Attending Physician TEMO WILKES 63/M [facility] [id number] Dr. Luis Valladares MD Specimen: [id number] Received: 10/14/23 Status: NIGEL Mares Num: [id number] Spec Type: PROST BX Subm Dr: Dr. Luis Valladares MD HEADER OPERATION: Prostate biopsy PRE-OP DIAGNOSIS: Elevated PSA TISSUE SUBMITTED: A - Right apex, B - Right mid, C - Right base, D - Left apex, E - Left mid, F - Left base MICROSCOPIC DIAGNOSIS A. Right prostate, apex, core biopsy: Adenocarcinoma. Cordova grade: 3+3 (6) Cores involved: 1/1 Tissue involved: <1% Greatest tumor length: 2.0 millimeters See comment. B. Right prostate, mid, core biopsy: Adenocarcinoma. Curt grade: 3+3 (6) Cores involved: 1/1 Tissue involved: 80% Greatest tumor length: 10.0 millimeters (discontinuous) See comment. C. Right prostate, base, core biopsy: Adenocarcinoma. Cordova grade: 3+4 (7) Cores involved: 2/2 Tissue involved: 75% Greatest tumor length: 9.0 millimeters (discontinuous) Perineural invasion present. See comment. D. Left prostate, apex, core biopsy: Adenocarcinoma. Curt grade: 3+4 (7) Cores involved: 1/2 Tissue involved: 50 % Greatest tumor length: 11.0 millimeters (discontinuous) See comment. E. Left prostate, mid, core biopsy: Adenocarcinoma. Cordova grade: 4+3 (7) Cores involved: 2/2 Tissue involved: 70 % Greatest tumor length: 10.5 millimeters See comment. F. Left prostate, base, core biopsy: Adenocarcinoma. Cordova grade: 4+4 (8) Patient Age/Sex Location Account Attending Physician TEMO WILKES 63/M [facility] [id number] Dr. Luis Valladares MD Cores involved: 2/2 Tissue involved: 65% Greatest tumor length: 9.5 millimeters See comment. AM/mr 10/15/2023 COMMENT A, B, C, D, E ,F. Immunohistochemistry ([id number]) supports the above diagnosis. Case has been reviewed in consultation with Dr. Carmichael who concurs with the above diagnosis. IDC:[id number] MICROSCOPIC DESCRIPTION Slides are reviewed. GROSS DESCRIPTION A - Received is one container designated prostate, right apex. The specimen consists of one elongated fragments of light grullon-white soft tissue measuring 0.7 cm in length and 0.1 cm in diameter. The specimen is totally submitted in one cassette. B - Received is one container designated prostate, right mid. The specimen consists of one elongated fragments of light grullon-white soft tissue measuring 1.4 cm in length and 0.1 cm in diameter. The specimen is totally submitted in one cassette. C - Received is one container designated prostate, right base. The specimen consists of two elongated fragments of light grullon-white soft tissue each measuring 1.5 cm in length and 0.1 cm in diameter. The specimen is totally submitted in one cassette. D - Received is one container designated prostate, left apex. The specimen consists of two elongated fragments of light grullon-white soft tissue measuring 1.5 and 2.0 cm in length and 0.1 cm in diameter. The specimen is totally submitted in one cassette. E - Received is one container designated prostate, left mid. The specimen consists of two elongated fragments of light grullon-white soft tissue measuring 1.5 and 2.0 cm in length and 0.1 cm in diameter. The specimen is totally submitted in one cassette. F - Received is one container designated prostate, left base. The specimen consists of two elongated fragments of light grullon-white soft tissue measuring 1.6 and 2.1 cm in length and 0.1 cm in diameter. The specimen is totally submitted in one cassette. MAIK/ 10/14/2023 TC:0 [facility]: 13473 x6 Patient Age/Sex Location Account Attending Physician TEMO WILKES 63/M [facility] [id number] Dr. Luis Valladares MD Signed (signature on file) Dr. Josh Lowry DO 10/16/23 1233 Normal [facility] Comment on above: Performed By: #### P PROSB #### [facility] [address] [place], [address] PSA Total+%Freeon 09-24-2023 PSA, FREE 0.60 ng/mL Normal N/A [facility] Comment on above: Result Comment: Keyonna HAMMONDS methodology. Performed By: #### L 3110.0500, L502.0500, L501.9940 #### [facility] [address] [facility] [facility] [place], [place], [id number] PSA, FREE % 7.1 Normal . [facility] Comment on above: Result Comment: The table below lists the probability of prostate cancer for men with non-suspicious SHERRY results and total PSA between 4 and 10 ng/mL, by patient age (Beryl et al, PAOLO 1998, 279:1542). % Free PSA 50-64 yr 65-75 yr 0.00-10.00% 56% 55% 10.01-15.00% 24% 35% 15.01-20.00% 17% 23% 20.01-25.00% 10% 20% >25.00% 5% 9% Please note: Beryl et al did not make specific recommendations regarding the use of percent free PSA for any other population of men. Performed at: [address] [id number] Employee Benefits Attorney: Jl Jefferson PhD, Phone: [phone] Performed By: #### L 3110.0500, L502.0500, L501.9940 #### [facility] [address] [place], [place], [id number] (561) PSA, TOTAL ULTR 8.450 ng/mL Abnormal 0.000-4.00 0 [facility] Comment on above: Result Comment: Keyonna HAMMONDS methodology. According to the [employer], Serum PSA should decrease and remain at undetectable levels after radical prostatectomy. The AUA defines biochemical recurrence as an initial PSA value 0.200 ng/mL or greater followed by a subsequent confirmatory PSA value 0.200 ng/mL or greater. Values obtained with different assay methods or kits cannot be used interchangeably. Results cannot be interpreted as absolute evidence of the presence or absence of malignant disease. Performed By: #### L 3110.0500, L502.0500, L501.9940 #### [facility] [address] [place], [address] Microalbumin,Random Urineon 09-23-2023 MICROALBUMIN,UR 8.3 mg/L Normal NO RANGE EST. [facility] Comment on above: Performed By: #### L 3110.0500, L502.0500, L501.9940 #### [facility] [address] [place], [address] PSA,Total- Diagnosticon 09-07 PSA, DIAGNOSTIC 9.93 ng/mL High 0.0-4.0 [facility] Comment on above: Result Comment: This test was performed using the TPSA assay method for the [employer]radetogether chemistry system. Values obtained with different assay methods cannot be used interchangably. When changing PSA assays in the course of monitoring a patient, additional sequential testing should be carried out to confirm baseline values. Performed By: #### L 3110.0500, L502.0500, L501.9940 #### [facility] [address] [place], [address] Thin prep Papanicolaou smear with manual screeningOrdered By: Thomas Friend on 06-12-2023 Thin prep Papanicolaou smear with manual screening 79 mg/dL 74-106 [facility] Comment on above: MANAGEMENT OF PATIEN T CARE PER NURSING PROTOCOL Absolute lymphocyte countOrd ered By: HEALTH ASSESSMENT on 02-04-2023 Lymphocytes Auto (Unsp spec) [#/Vol] 5.87 10*3/uL 0.83-4.51 [facility] Absolute reticulocyte countO rdered By: HEALTH ASSESSMENT on 02-04-2023 Reticulocytes (Bld) [#/Vol] 0.00 10*3/uL 0-5 [facility] Basophil percentageOrdered B y: HEALTH ASSESSMENT on 02-04-2023 Basophil percentage 3.5 mg/dL 2.5-4.9 [facility] Bilirubin [Mass/Vol] 0.30 mg/dL 0.20-1.00 [facility] Comment on above: For patients on eltr ombopag therapy, use of Dimension [place] TBIL is not recommended. Chloride [Moles/Vol] 106 mmol/L 98-107 [facility] Cholesterol [Mass/Vol] 272 mg/dL <200 [facility] Comment on above: <200 mg/dL Desirable 200-240 mg/dL Borderline >240 mg/dL High Risk Glucose [Mass/Vol] 151 mg/dL 74-106 [facility] Comment on above: Fasting Glucose resu lt greater than or equal to 126 mg/dL suggests DIABETES MELLITUS per A.D.A. criteria. LDH [Catalytic activity/Vol] 164 U/L 87-241 [facility] Neutrophils (Bld) [#/Vol] 8.6 10*3/uL 2.0-7.7 [facility] Potassium [Moles/Vol] 4.0 mmol/L 3.5-5.1 [facility] Protein [Mass/Vol] 7.2 g/dL 6.4-8.2 [facility] Sodium [Moles/Vol] 137 mmol/L 136-145 [facility] Triglyceride [Mass/Vol] 249 mg/dL <199 [facility] Comment on above: The drugs N-Acetylcy steine and Metamizole may falsely depress this assay.Serum Triglycerides Reference Interval Normal <150 mg/dL Borderline high 150 - 199 mg/dL High 200 - 499 mg/dL Very High > or = 500 mg/dL WBC (Bld) [#/Vol] 18.4 10*3/uL 4.4-11.0 [facility] Blood erythrocytes count (nu mber/volume)Ordered By: HEALTH ASSESSMENT on 02-04-2023 RBC (Bld) [#/Vol] 4.44 10*6/uL 4.6-6.2 [facility] Blood hemoglobin measurement (mass/volume)Ordered By: HEALTH ASSESSMENT on 02-04-2023 Hemoglobin (Bld) [Mass/Vol] 13.7 g/dL 13.0-16.5 [facility] Blood leukocytes count corre cted for nucleated erythrocytes (number/volume)Ordered By: HEALTH ASSESSMENT on 02-04-2023 WBC corrected for nucl RBC (Bld) [#/Vol] [employer] [facility] Blood platelet mean volumeOr dered By: HEALTH ASSESSMENT on 02-04-2023 Platelet mean volume (Bld) [Entitic vol] 11.0 fL 6.2-12.0 [facility] Determination of erythrocyte mean corpuscular volume (MCV)Ordered By: HEALTH ASSESSMENT on 02-04-2023 MCV (RBC) [Entitic vol] 92.6 fL 80-94 [facility] Direct bilirubinOrdered By: HEALTH ASSESSMENT on 02-04-2023 Bilirubin.direct [Mass/Vol] 0.06 mg/dL 0.00-0.30 [facility] Hematocrit Auto (Bld) [Volum e fraction]Ordered By: HEALTH ASSESSMENT on 02-04-2023 Hematocrit (Bld) [Volume fraction] 41.1 % 40-54 [facility] Laboratory - Chemistry and C hemistry - challengeOrdered By: HEALTH ASSESSMENT on 02-04-2023 ALP [Catalytic activity/Vol] 51 U/L 45-117 [facility] ALT [Catalytic activity/Vol] 20 U/L 16-61 [facility] Cholesterol.total/Rosa Maria sterol in HDL [Mass ratio] 5.80 {ratio} [facility] CO2 [Moles/Vol] 25.0 mmol/L 21.0-32.0 [facility] Globulin (S) [Mass/Vol] 3.5 g/dL 2.2-4.2 [facility] Urea nitrogen/Creatinine [Mass ratio] 16.8 mg/mg 10-20 [facility] Laboratory - Hematology and Cell countsOrdered By: HEALTH ASSESSMENT on 02-04-2023 Erythrocyte distribution width (RBC) [Entitic vol] 44.4 fL 35.1-43.9 [facility] Erythrocyte distribution width (RBC) [Ratio] 13.1 % 11.6-14.6 [facility] MCH (RBC) [Entitic mass] 30.9 pg 27.0-32.0 [facility] Nucleated RBC/100 WBC (Bld) [Ratio] 0 % 0-5 [facility] MCHC Auto (RBC) [Mass/Vol]Or dered By: HEALTH ASSESSMENT on 02-04-2023 MCHC (RBC) [Mass/Vol] 33.3 g/dL 32-36 [facility] No Panel InformationOrdered By: HEALTH ASSESSMENT on 02-04-2023 Estimated Creatinine Clearance Calc [employer] [facility] Estimated GFR (MDRD) Amer 121 mL/min >60 [facility] Comment on above: GFR Calc Estimated GFR (MDRD) Non-Af Amer 100 mL/min >60 [facility] Comment on above: Non- GFR Calc Immature Granulocyte % (Auto) [employer] [facility] Platelets bldOrdered By: MAGUI LT ASSESSMENT on 02-04-2023 Platelets (Bld) [#/Vol] 322 10*3/uL 150-450 [facility] Review by pathologistOrdered By: HEALTH ASSESSMENT on 02-04-2023 Pathologist review Andrew (Unsp spec) [Interp] Reviewed [facility] Comment on above: Previous reported re sult: Petra vogel Edited by: RGOOD on 02/05/23:1525Absolute Lymphocytosis.Clinical correlation necessary.Josh Lowry D.O. 02/05/23 AMENDED REPORT 02/05/23 1525 PATH REV previously reported as: Petra vogel Segmented neutrophils/100 WB C Auto (Bld)Ordered By: HEALTH ASSESSMENT on 02-04-2023 Segmented neutrophils/100 WBC (Bld) 46.5 % 47-70 [facility] Serum or plasma albumin quoc urement (mass/volume)Ordered By: HEALTH ASSESSMENT on 02-04-2023 Albumin [Mass/Vol] 3.7 g/dL 3.2-5.0 [facility] Serum or plasma albumin/glob ulin mass ratioOrdered By: HEALTH ASSESSMENT on 02-04-2023 Albumin/Globulin [Mass ratio] 1.1 {ratio} 0.9-2.4 [facility] Serum or plasma calcium quoc urement (mass/volume)Ordered By: HEALTH ASSESSMENT on 02-04-2023 Calcium [Mass/Vol] 9.1 mg/dL 8.5-10.1 [facility] Serum or plasma cholesterol in HDL measurement (mass/volume)Ordered By: HEALTH ASSESSMENT on 02-04-2023 Cholesterol in HDL [Mass/Vol] 47 mg/dL >40 [facility] Comment on above: The drugs N-Acetylcy steine and Metamizole may falsely depress this assay. Reference Range HDL <40 mg/dL Low HDL Cholesterol HDL >or= 60 mg/dL High HDL Cholesterol Serum or plasma cholesterol in VLDL measurement (mass/volume)Ordered By: HEALTH ASSESSMENT on 02-04-2023 Cholesterol in VLDL [Mass/Vol] 50 mg/dL 5-40 [facility] Serum or plasma creatinine m easurement (mass/volume)Ordered By: HEALTH ASSESSMENT on 02-04-2023 Creatinine [Mass/Vol] 0.83 mg/dL 0.70-1.30 [facility] Comment on above: The validity of the calculated GFR & GFRAA in patients over 70 years has not been determined. Clinical correlation is essential. Serum or plasma low density lipoprotein (LDL) cholesterol measurement (mass/volume)Ordered By: HEALTH ASSESSMENT on 02-04-2023 Cholesterol in LDL [Mass/Vol] 175 mg/dL 0-130 [facility] Serum or plasma urea nitroge n measurement (mass/volume)Ordered By: HEALTH ASSESSMENT on 02-04-2023 Urea nitrogen [Mass/Vol] 14 mg/dL 7-18 [facility] Serum or plasma uric acid me asurement (mass/volume)Ordered By: HEALTH ASSESSMENT on 02-04-2023 Urate [Mass/Vol] 2.7 mg/dL 3.5-7.2 [facility] Comment on above: The drugs N-Acetylcy steine and Metamizole may falsely depress this assay. Thin prep Papanicolaou smear with manual screeningOrdered By: HEALTH ASSESSMENT on 02-04-2023 Thin prep Papanicolaou smear with manual screening 12 U/L 15-37 [facility] Thin prep Papanicolaou smear with manual screening 6 5-15 [facility] Absolute lymphocyte countOrd ered By: ED PROVIDER on 11-29-2022 Lymphocytes Auto (Unsp spec) [#/Vol] 5.96 10*3/uL 0.83-4.51 [facility] Basophil percentageOrdered B y: ED PROVIDER on 11-29-2022 Basophils/100 WBC (Bld) 0.7 % 0-1 [facility] Chloride [Moles/Vol] 108 mmol/L 98-107 [facility] Eosinophils/100 WBC (Bld) 4.2 % 0-5 [facility] Glucose [Mass/Vol] 142 mg/dL 74-106 [facility] Comment on above: Fasting Glucose resu lt greater than or equal to 126 mg/dL suggests DIABETES MELLITUS per A.D.A. criteria. Neutrophils (Bld) [#/Vol] 10.8 10*3/uL 2.0-7.7 [facility] Neutrophils/100 WBC (Bld) 53.5 % 47-70 [facility] Potassium [Moles/Vol] 3.9 mmol/L 3.5-5.1 [facility] Sodium [Moles/Vol] 139 mmol/L 136-145 [facility] WBC (Bld) [#/Vol] 20.1 10*3/uL 4.4-11.0 [facility] Blood erythrocytes count (nu mber/volume)Ordered By: ED PROVIDER on 11-29-2022 RBC (Bld) [#/Vol] 4.07 10*6/uL 4.6-6.2 [facility] Blood hemoglobin measurement (mass/volume)Ordered By: ED PROVIDER on 11-29-2022 Hemoglobin (Bld) [Mass/Vol] 12.7 g/dL 13.0-16.5 [facility] Blood lymphocytes/100 leukoc ytesOrdered By: ED PROVIDER on 11-29-2022 Lymphocytes/100 WBC (Bld) 29.6 % 19-41 [facility] Blood manual differential co mment interpretation (narrative result)Ordered By: Armani White on 11-29-2022 Manual differential comment Andrew (Bld) [Interp] SCANNED [facility] Comment on above: LYMPHOCYTOSIS NOTEDM ONOCYTOSIS NOTED Blood monocytes/100 leukocyt esOrdered By: ED PROVIDER on 11-29-2022 Monocytes/100 WBC (Bld) 11.7 % 0-10 [facility] Blood platelet mean volumeOr dered By: ED PROVIDER on 11-29-2022 Platelet mean volume (Bld) [Entitic vol] 10.3 fL 6.2-12.0 [facility] COVID-19 virus antigen assay Ordered By: Armani White on 11-29-2022 SARS-CoV-2 (COVID-19) Ag IA.rapid Ql (Resp) [facility] Determination of erythrocyte mean corpuscular volume (MCV)Ordered By: ED PROVIDER on 11-29-2022 MCV (RBC) [Entitic vol] 91.2 fL 80-94 [facility] Hematocrit Auto (Bld) [Volum e fraction]Ordered By: ED PROVIDER on 11-29-2022 Hematocrit (Bld) [Volume fraction] 37.1 % 40-54 [facility] Laboratory - Chemistry and C hemistry - challengeOrdered By: ED PROVIDER on 11-29-2022 CO2 [Moles/Vol] 27.0 mmol/L 21.0-32.0 [facility] Urea nitrogen/Creatinine [Mass ratio] 15.7 mg/mg 10-20 [facility] Laboratory - Hematology and Cell countsOrdered By: ED PROVIDER on 11-29-2022 Erythrocyte distribution width (RBC) [Entitic vol] 44.1 fL 35.1-43.9 [facility] Erythrocyte distribution width (RBC) [Ratio] 13.2 % 11.6-14.6 [facility] Immature granulocytes/100 WBC (Bld) 0.300 % 0.0-0.9 [facility] Comment on above: IG% - Immature Granu locytes (promyelocytes, myelocytes and metamyelocytes) > 1% indicates that a LEFT SHIFT is Present. MCH (RBC) [Entitic mass] 31.2 pg 27.0-32.0 [facility] Nucleated RBC/100 WBC (Bld) [Ratio] 0 % 0-5 [facility] MCHC Auto (RBC) [Mass/Vol]Or dered By: ED PROVIDER on 11-29-2022 MCHC (RBC) [Mass/Vol] 34.2 g/dL 32-36 [facility] No Panel InformationOrdered By: ED PROVIDER on 11-29-2022 Estimated Creatinine Clearance Calc 76.05 ml/min [facility] Estimated GFR (MDRD) Amer 95 mL/min >60 [facility] Comment on above: GFR Calc Estimated GFR (MDRD) Non-Af Amer 79 mL/min >60 [facility] Comment on above: Non- GFR Calc Platelets bldOrdered By: ED PROVIDER on 11-29-2022 Platelets (Bld) [#/Vol] 505 10*3/uL 150-450 [facility] Review by pathologistOrdered By: Armani White on 11-29-2022 Pathologist review Andrew (Unsp spec) [Interp] July [facility] Serum or plasma calcium quoc urement (mass/volume)Ordered By: ED PROVIDER on 11-29-2022 Calcium [Mass/Vol] 9.2 mg/dL 8.5-10.1 [facility] Serum or plasma creatinine m easurement (mass/volume)Ordered By: ED PROVIDER on 11-29-2022 Creatinine [Mass/Vol] 1.02 mg/dL 0.70-1.30 [facility] Comment on above: The validity of the calculated GFR & GFRAA in patients over 70 years has not been determined. Clinical correlation is essential. Serum or plasma urea nitroge n measurement (mass/volume)Ordered By: ED PROVIDER on 11-29-2022 Urea nitrogen [Mass/Vol] 16 mg/dL 7-18 [facility] Thin prep Papanicolaou smear with manual screeningOrdered By: ED PROVIDER on 11-29-2022 Thin prep Papanicolaou smear with manual screening 4 5-15 [facility] Laboratory - Microbiology an d Antimicrobial susceptibilityon 11-11-2022 SARS-CoV-2 (COVID-19) RNA TRETN+probe Ql (Unsp spec) Not detected [facility] No Panel Informationon 11-11 POC Nasal Swab Influenza A,B Not detected [facility] POC Nasal Swab RSV Not detected [facility] Stool gastrointestinal hemog lobin detection by immunologic methodOrdered By: Iftikhar Carlos on 10-15-2022 Lower GI hemoglobin IA Ql (Stl) [facility] Absolute lymphocyte countOrd ered By: Iftikhar Carlos on 09-16-2022 Lymphocytes Auto (Unsp spec) [#/Vol] 7.69 10*3/uL 0.83-4.51 [facility] Basophil percentageOrdered B y: Iftikhar Carlos on 09-16-2022 Basophils/100 WBC (Bld) 0.9 % 0-1 [facility] Eosinophils/100 WBC (Bld) 6.4 % 0-5 [facility] Neutrophils (Bld) [#/Vol] 4.6 10*3/uL 2.0-7.7 [facility] Neutrophils/100 WBC (Bld) 31.0 % 47-70 [facility] WBC (Bld) [#/Vol] 15.0 10*3/uL 4.4-11.0 [facility] Blood erythrocytes count (nu mber/volume)Ordered By: Iftikhar Carlos on 09-16-2022 RBC (Bld) [#/Vol] 4.51 10*6/uL 4.6-6.2 [facility] Blood hemoglobin measurement (mass/volume)Ordered By: Iftikhar Carlos on 09-16-2022 Hemoglobin (Bld) [Mass/Vol] 13.9 g/dL 13.0-16.5 [facility] Blood lymphocytes/100 leukoc ytesOrdered By: Iftikhar Carlos on 09-16-2022 Lymphocytes/100 WBC (Bld) 51.2 % 19-41 [facility] Blood manual differential co mment interpretation (narrative result)Ordered By: Iftikhar Carlos on 09-16-2022 Manual differential comment Andrew (Bld) [Interp] SEE COMMENTS [facility] Comment on above: LYMPHOCYTOSIS NOTED MONOCYTOSIS NOTED Blood monocytes/100 leukocyt esOrdered By: Iftikhar Carlos on 09-16-2022 Monocytes/100 WBC (Bld) 10.4 % 0-10 [facility] Blood platelet adequacy dete ction by light microscopyOrdered By: Iftikhar Carlos on 09-16-2022 Platelets LM Ql (Bld) SLT INC ADEQ [facility] Blood platelet mean volumeOr dered By: Iftikhar Carlos on 09-16-2022 Platelet mean volume (Bld) [Entitic vol] 11.3 fL 6.2-12.0 [facility] Determination of erythrocyte mean corpuscular volume (MCV)Ordered By: Iftikhar Carlos on 09-16-2022 MCV (RBC) [Entitic vol] 93.3 fL 80-94 [facility] Hematocrit Auto (Bld) [Volum e fraction]Ordered By: Iftikhar Carlos on 09-16-2022 Hematocrit (Bld) [Volume fraction] 42.1 % 40-54 [facility] Laboratory - Hematology and Cell countsOrdered By: Iftikhar Carlos on 09-16-2022 Anisocytosis Ql (Bld) RARE [facility] Erythrocyte distribution width (RBC) [Entitic vol] 44.3 fL 35.1-43.9 [facility] Erythrocyte distribution width (RBC) [Ratio] 13.1 % 11.6-14.6 [facility] Immature granulocytes/100 WBC (Bld) 0.100 % 0.0-0.9 [facility] Comment on above: IG% - Immature Granu locytes (promyelocytes, myelocytes and metamyelocytes) > 1% indicates that a LEFT SHIFT is Present. MCH (RBC) [Entitic mass] 30.8 pg 27.0-32.0 [facility] Nucleated RBC/100 WBC (Bld) [Ratio] 0 % 0-5 [facility] Laboratory - Hematology and Cell countson 09-16-2022 HbA1c (Bld) [Mass fraction] 8.1 % 4.2-6.3 [facility] MCHC Auto (RBC) [Mass/Vol]Or dered By: Iftikhar Carlos on 09-16-2022 MCHC (RBC) [Mass/Vol] 33.0 g/dL 32-36 [facility] Macrocytes detectionOrdered By: Iftikhar Carlos on 09-16-2022 Macrocytes Ql (Bld) RARE [facility] No Panel InformationOrdered By: Obi Lozano on 09-16-2022 Anti-Cardiolipin IgM Antibody 10 MPL U/mL 0-12 [facility] Comment on above: Negative: <13 Indete rminate: 13 - 20 Low-Med Positive: >20 - 80 High Positive: >80 No Panel InformationOrdered By: Iftikhar Carlos on 09-16-2022 Atypical Lymphocytes 1+ % [facility] Platelets bldOrdered By: See Carlos on 09-16-2022 Platelets (Bld) [#/Vol] 411 10*3/uL 150-450 [facility] RBC morphologyOrdered By: Ramos Carlos on 09-16-2022 RBC morphology finding Nom (Bld) N CHROM NORMAL NORM C&C [facility] Review by pathologistOrdered By: Iftikhar Carlos on 09-16-2022 Pathologist review Andrew (Unsp spec) [Interp] Reviewed [facility] Comment on above: Previous reported re sult: Petra vogel Edited by: EFRAIN on 09/18/22:1016Leukocytosis and Absolute lymphocytosis Clinical correlation necessary.Mychal Carmichael M.D. 09/18/22 AMENDED REPORT 09/18/22 1016 PATH REV previously reported as: Petra vogel Serum cardiolipin IgG antibo dy assay by immunoassay (units/volume)Ordered By: Obi Lozano on 09-16-2022 Cardiolipin IgG IA Qn (S) < 9 GPL U/mL 0-14 [facility] Comment on above: Negative: <15 Indete rminate: 15 - 20 Low-Med Positive: >20 - 80 High Positive: >80 Serum or plasma cardiolipin IgA antibody assay (units/volume)Ordered By: Obi Lozano on 09-16-2022 Cardiolipin IgA Qn < 9 APL U/mL 0-11 [facility] Comment on above: Negative: <12 Indete rminate: 12 - 20 Low-Med Positive: >20 - 80 High Positive: >80Performed at: [facility] [id number] Director: Jl Jefferson PhD, Phone: [phone] Absolute lymphocyte countOrd ered By: Dr. Jones on 07-02-2022 Lymphocytes Auto (Unsp spec) [#/Vol] 7.24 10*3/uL 0.83-4.51 [facility] Basophil percentageOrdered B y: Dr. Jones on 07-02-2022 Basophils/100 WBC (Bld) 0.9 % 0-1 [facility] Chloride [Moles/Vol] 104 mmol/L 98-107 [facility] Eosinophils/100 WBC (Bld) 7.1 % 0-5 [facility] Glucose [Mass/Vol] 141 mg/dL 74-106 [facility] Comment on above: Fasting Glucose resu lt greater than or equal to 126 mg/dL suggests DIABETES MELLITUS per A.D.A. criteria. Neutrophils (Bld) [#/Vol] 5.2 10*3/uL 2.0-7.7 [facility] Neutrophils/100 WBC (Bld) 34.3 % 47-70 [facility] Potassium [Moles/Vol] 3.9 mmol/L 3.5-5.1 [facility] Sodium [Moles/Vol] 136 mmol/L 136-145 [facility] WBC (Bld) [#/Vol] 15.2 10*3/uL 4.4-11.0 [facility] Blood erythrocytes count (nu mber/volume)Ordered By: Dr. Jones on 07-02-2022 RBC (Bld) [#/Vol] 4.74 10*6/uL 4.6-6.2 [facility] Blood hemoglobin measurement (mass/volume)Ordered By: Dr. Jones on 07-02-2022 Hemoglobin (Bld) [Mass/Vol] 14.4 g/dL 13.0-16.5 [facility] Blood lymphocytes/100 leukoc ytesOrdered By: Dr. Jones on 07-02-2022 Lymphocytes/100 WBC (Bld) 47.8 % 19-41 [facility] Blood manual differential co mment interpretation (narrative result)Ordered By: Dr. Jones on 07-02-2022 Manual differential comment Andrew (Bld) [Interp] SCANNED [facility] Comment on above: LYMPHOCYTOSIS NOTED Blood monocytes/100 leukocyt esOrdered By: Dr. Jones on 07-02-2022 Monocytes/100 WBC (Bld) 9.6 % 0-10 [facility] Blood platelet mean volumeOr dered By: Dr. Jones on 07-02-2022 Platelet mean volume (Bld) [Entitic vol] 11.0 fL 6.2-12.0 [facility] Determination of erythrocyte mean corpuscular volume (MCV)Ordered By: Dr. Jones on 07-02-2022 MCV (RBC) [Entitic vol] 92.4 fL 80-94 [facility] Glucose Glucometer (BldC) [M ass/Vol]Ordered By: Tutu Jones on 07-02-2022 Glucose [Mass/Vol] 141 mg/dL 74-106 [facility] Comment on above: MANAGEMENT OF PATIEN T CARE PER NURSING PROTOCOL Hematocrit Auto (Bld) [Volum e fraction]Ordered By: Dr. Jones on 07-02-2022 Hematocrit (Bld) [Volume fraction] 43.8 % 40-54 [facility] INR in Blood by Coagulation assayOrdered By: Dr. Jones on 07-02-2022 INR Coag (Bld) [Relative time] 1.0 {INR} [facility] Laboratory - Chemistry and C hemistry - challengeOrdered By: Dr. Jones on 07-02-2022 CO2 [Moles/Vol] 26.0 mmol/L 21.0-32.0 [facility] Urea nitrogen/Creatinine [Mass ratio] 15.9 mg/mg 10-20 [facility] Laboratory - CoagulationOrde red By: Dr. Jones on 07-02-2022 aPTT Coag (Bld) [Time] 34.7 s 24.1-36.2 [facility] PT Coag (PPP) [Time] 12.4 s 11.7-14.9 [facility] Laboratory - Hematology and Cell countsOrdered By: Dr. Jones on 07-02-2022 Erythrocyte distribution width (RBC) [Entitic vol] 44.9 fL 35.1-43.9 [facility] Erythrocyte distribution width (RBC) [Ratio] 13.2 % 11.6-14.6 [facility] Immature granulocytes/100 WBC (Bld) 0.300 % 0.0-0.9 [facility] Comment on above: IG% - Immature Granu locytes (promyelocytes, myelocytes and metamyelocytes) > 1% indicates that a LEFT SHIFT is Present. MCH (RBC) [Entitic mass] 30.4 pg 27.0-32.0 [facility] Nucleated RBC/100 WBC (Bld) [Ratio] 0 % 0-5 [facility] MCHC Auto (RBC) [Mass/Vol]Or dered By: Dr. Jones on 07-02-2022 MCHC (RBC) [Mass/Vol] 32.9 g/dL 32-36 [facility] No Panel InformationOrdered By: Dr. Jones on 07-02-2022 Estimated Creatinine Clearance Calc 110.09 ml/min [facility] Estimated GFR (MDRD) Amer 135 mL/min >60 [facility] Comment on above: GFR Calc Estimated GFR (MDRD) Non-Af Amer 112 mL/min >60 [facility] Comment on above: Non- GFR Calc Reactive Lymphocytes 1+ [facility] Troponin I High Sensitivity 9 pg/mL 3.0-78.0 [facility] Comment on above: Please Note: New Yuval t Units and Gender Specific Reference Ranges. For more information see Policy Stat Procedure [place] High Sensitivity Troponin (TNIH) and attachments. Platelets bldOrdered By: Dr. Jones on 07-02-2022 Platelets (Bld) [#/Vol] 395 10*3/uL 150-450 [facility] Serum or plasma calcium quoc urement (mass/volume)Ordered By: Dr. Jones on 07-02-2022 Calcium [Mass/Vol] 9.5 mg/dL 8.5-10.1 [facility] Serum or plasma creatinine m easurement (mass/volume)Ordered By: Dr. Jones on 07-02-2022 Creatinine [Mass/Vol] 0.76 mg/dL 0.70-1.30 [facility] Comment on above: The validity of the calculated GFR & GFRAA in patients over 70 years has not been determined. Clinical correlation is essential. Serum or plasma urea nitroge n measurement (mass/volume)Ordered By: Dr. Jones on 07-02-2022 Urea nitrogen [Mass/Vol] 12 mg/dL 7-18 [facility] Thin prep Papanicolaou smear with manual screeningOrdered By: Dr. Jones on 07-02-2022 Thin prep Papanicolaou smear with manual screening 6 5-15 [facility] Laboratory - Hematology and Cell countson 06-12-2022 HbA1c (Bld) [Mass fraction] 7.0 % 4.2-6.3 [facility] Absolute lymphocyte countOrd ered By: Dr. Romero on 06-04-2022 Lymphocytes Auto (Unsp spec) [#/Vol] 5.12 10*3/uL 0.83-4.51 [facility] Basophil percentageOrdered B y: Dr. Romero on 06-04-2022 Basophils/100 WBC (Bld) 0.8 % 0-1 [facility] Chloride [Moles/Vol] 107 mmol/L 98-107 [facility] Eosinophils/100 WBC (Bld) 8.9 % 0-5 [facility] Glucose [Mass/Vol] 129 mg/dL 74-106 [facility] Comment on above: Fasting Glucose resu lt greater than or equal to 126 mg/dL suggests DIABETES MELLITUS per A.D.A. criteria. Neutrophils (Bld) [#/Vol] 5.5 10*3/uL 2.0-7.7 [facility] Neutrophils/100 WBC (Bld) 40.0 % 47-70 [facility] Potassium [Moles/Vol] 4.0 mmol/L 3.5-5.1 [facility] Sodium [Moles/Vol] 136 mmol/L 136-145 [facility] WBC (Bld) [#/Vol] 13.7 10*3/uL 4.4-11.0 [facility] Blood erythrocytes count (nu mber/volume)Ordered By: Dr. Romero on 06-04-2022 RBC (Bld) [#/Vol] 4.44 10*6/uL 4.6-6.2 [facility] Blood hemoglobin measurement (mass/volume)Ordered By: Dr. Romero on 06-04-2022 Hemoglobin (Bld) [Mass/Vol] 13.9 g/dL 13.0-16.5 [facility] Blood lymphocytes/100 leukoc ytesOrdered By: Dr. Romero on 06-04-2022 Lymphocytes/100 WBC (Bld) 37.3 % 19-41 [facility] Blood manual differential co mment interpretation (narrative result)Ordered By: Dr. Romero on 06-04-2022 Manual differential comment Andrew (Bld) [Interp] SCANNED [facility] Blood monocytes/100 leukocyt esOrdered By: Dr. Romero on 06-04-2022 Monocytes/100 WBC (Bld) 12.6 % 0-10 [facility] Blood platelet adequacy dete ction by light microscopyOrdered By: Dr. Romero on 06-04-2022 Platelets LM Ql (Bld) ADEQUATE ADEQ [facility] Blood platelet mean volumeOr dered By: Dr. Romero on 06-04-2022 Platelet mean volume (Bld) [Entitic vol] 11.4 fL 6.2-12.0 [facility] Blood platelet morphology de termination (nominal result)Ordered By: Dr. Romero on 06-04-2022 Platelet morphology finding Nom (Bld) LARGE [facility] Cerebrospinal fluid appearan ce descriptionOrdered By: Dr. Romero on 06-04-2022 Appearance (CSF) CLEAR Clear [facility] Cerebrospinal fluid cell cou ntOrdered By: Dr. Romero on 06-04-2022 Cell count panel (CSF) 0.005 10^3/uL [facility] Comment on above: This is the Total Nu mber of Nucleated Cell Types in the Unconcentrated Body Fluid. Cerebrospinal fluid color id entificationOrdered By: Dr. Romero on 06-04-2022 Color (CSF) COLORLESS Colorless [facility] Cerebrospinal fluid lymphocy yuval count (number/volume)Ordered By: Dr. Romero on 06-04-2022 Lymphocytes (CSF) [#/Vol] 82 % 40-80 [facility] Cerebrospinal fluid monocyte s/[address]: [address] Romero on 06-04-2022 Monocytes/100 WBC (CSF) 14 % 15-45 [facility] Cerebrospinal fluid neutroph ils/[address]: [address] Romero on 06-04-2022 Neutrophils/100 WBC (CSF) 4 % 0-6 [facility] Cerebrospinal fluid white bl ood cell countOrdered By: Dr. Romero on 06-04-2022 WBC (CSF) [#/Vol] 0.004 10^3/uL 0.000-0.0 0 5 [facility] Cytology report of Body flui d Cyto stainOrdered By: Dr. Romero on 06-04-2022 Cytology report Cyto stain Doc (Body fld) SEE PATHOLOGY REPORT [facility] Comment on above: Specimen submitted t o Anatomical Pathology Department for testing. Determination of erythrocyte mean corpuscular volume (MCV)Ordered By: Dr. Romero on 06-04-2022 MCV (RBC) [Entitic vol] 94.1 fL 80-94 [facility] Glucose Glucometer (dC) [M ass/Vol]Ordered By: Dr. Romero on 06-04-2022 Glucose [Mass/Vol] 151 mg/dL 74-106 [facility] Comment on above: MANAGEMENT OF PATIEN T CARE PER NURSING PROTOCOL Hematocrit Auto (Bld) [Volum e fraction]Ordered By: Dr. Romero on 06-04-2022 Hematocrit (Bld) [Volume fraction] 41.8 % 40-54 [facility] INR in Blood by Coagulation assayOrdered By: Dr. Romero on 06-04-2022 INR Coag (Bld) [Relative time] 1.0 {INR} [facility] Laboratory - Chemistry and C hemistry - challengeOrdered By: Dr. Romero on 06-04-2022 CO2 [Moles/Vol] 24.0 mmol/L 21.0-32.0 [facility] Urea nitrogen/Creatinine [Mass ratio] 30.1 mg/mg 10-20 [facility] Laboratory - CoagulationOrde red By: Dr. Romero on 06-04-2022 PT Coag (PPP) [Time] 12.8 s 11.7-14.9 [facility] Laboratory - Hematology and Cell countsOrdered By: Dr. Romero on 06-04-2022 Erythrocyte distribution width (RBC) [Entitic vol] 45.9 fL 35.1-43.9 [facility] Erythrocyte distribution width (RBC) [Ratio] 13.4 % 11.6-14.6 [facility] Immature granulocytes/100 WBC (Bld) 0.400 % 0.0-0.9 [facility] Comment on above: IG% - Immature Granu locytes (promyelocytes, myelocytes and metamyelocytes) > 1% indicates that a LEFT SHIFT is Present. MCH (RBC) [Entitic mass] 31.3 pg 27.0-32.0 [facility] Nucleated RBC/100 WBC (Bld) [Ratio] 0 % 0-5 [facility] Laboratory - Specimen inform ationOrdered By: Dr. Romero on 06-04-2022 Tube number Nom (CSF) [ID] 3 [facility] MCHC Auto (RBC) [Mass/Vol]Or dered By: Dr. Romero on 06-04-2022 MCHC (RBC) [Mass/Vol] 33.3 g/dL 32-36 [facility] Mononuclear cells Auto (Body fld) [#/Vol]Ordered By: Dr. Romero on 06-04-2022 Mononuclear cells (Body fld) [#/Vol] 0.004 10*3/uL [facility] No Panel InformationOrdered By: Dr. Romero on 06-04-2022 Body Fluid Mononuclear WBCs (%) 100.0 % [facility] Body Fluid Polynuclear WBCs (#) 0.000 10^3/uL [facility] Body Fluid Polynuclear WBCs (%) 0.0 % [facility] CSF RBC 43 /mm-3 None seen [facility] Estimated Creatinine Clearance Calc 130.93 ml/min [facility] Estimated GFR (MDRD) Amer 177 mL/min >60 [facility] Comment on above: GFR Calc Estimated GFR (MDRD) Non-Af Amer 146 mL/min >60 [facility] Comment on above: Non- GFR Calc Platelets bldOrdered By: Dr. Romero on 06-04-2022 Platelets (Bld) [#/Vol] 325 10*3/uL 150-450 [facility] Review by pathologistOrdered By: Dr. Romero on 06-04-2022 Pathologist review Andrew (Unsp spec) [Interp] May follow [facility] Pathologist review Andrew (Unsp spec) [Interp] Reviewed [facility] Comment on above: Previous reported re sult: May follow Edited by: RGOOD on 06/05/22:1330Negative for malignant cells.Mychal Carmichael M.D. 06/05/22 AMENDED REPORT 06/05/22 1330 PATH REV previously reported as: May follow Pathologist review Andrew (Unsp spec) [Interp] May foll [facility] Pathologist review Andrew (Unsp spec) [Interp] Reviewed [facility] Comment on above: Previous reported re sult: July foll Edited by: RGOOD on 06/05/22:1332Leukocytosis. Clinical correlation necessary.Mychal Carmichael M.D. 06/05/22 AMENDED REPORT 06/05/222 PATH REV previously reported as: July Serum or plasma calcium quoc urement (mass/volume)Ordered By: Dr. Romero on 06-04-2022 Calcium [Mass/Vol] 9.1 mg/dL 8.5-10.1 [facility] Serum or plasma creatinine m easurement (mass/volume)Ordered By: Dr. Romero on 06-04-2022 Creatinine [Mass/Vol] 0.60 mg/dL 0.70-1.30 [facility] Comment on above: The validity of the calculated GFR & GFRAA in patients over 70 years has not been determined. Clinical correlation is essential. Serum or plasma urea nitroge n measurement (mass/volume)Ordered By: Dr. Romero on 06-04-2022 Urea nitrogen [Mass/Vol] 18 mg/dL 7-18 [facility] Thin prep Papanicolaou smear with manual screeningOrdered By: Dr. Romero on 06-04-2022 Thin prep Papanicolaou smear with manual screening 5 5-15 [facility] Basophil percentageOrdered B y: Dr. Romero on 06-03-2022 Bilirubin [Mass/Vol] 0.50 mg/dL 0.20-1.00 [facility] Comment on above: For patients on eltr ombopag therapy, use of Dimension [place] TBIL is not recommended. Cholesterol [Mass/Vol] 184 mg/dL <200 [facility] Comment on above: <200 mg/dL Desirable 200-240 mg/dL Borderline >240 mg/dL High Risk Protein [Mass/Vol] 6.7 g/dL 6.4-8.2 [facility] Triglyceride [Mass/Vol] 267 mg/dL <199 [facility] Comment on above: The drugs N-Acetylcy steine and Metamizole may falsely depress this assay.Serum Triglycerides Reference Interval Normal <150 mg/dL Borderline high 150 - 199 mg/dL High 200 - 499 mg/dL Very High > or = 500 mg/dL Cerebrospinal fluid glucose measurement (mass/volume)Ordered By: Dr. Romero on 06-03-2022 Glucose (CSF) [Mass/Vol] 82 mg/dL 40-75 [facility] Direct bilirubinOrdered By: Dr. Romero on 06-03-2022 Bilirubin.direct [Mass/Vol] 0.10 mg/dL 0.00-0.30 [facility] Laboratory - Chemistry and C hemistry - challengeOrdered By: Dr. Romero on 06-03-2022 ALP [Catalytic activity/Vol] 64 U/L 45-117 [facility] ALT [Catalytic activity/Vol] 23 U/L 16-61 [facility] Globulin (S) [Mass/Vol] 3.1 g/dL 2.2-4.2 [facility] No Panel InformationOrdered By: Dr. Romero on 06-03-2022 CSF Total Protein 68.0 mg/dL 15.0-45.0 [facility] Miscellaneous Test See comment [facility] Comment on above: TEST RESULTS LIMITSC omp panel: Leukemia/LymphomaFlow InterpretationInsufficient viable and/or hematopoietic cells present for interpretation. (See comment.)Flow Comment Correlation with the CSF cell count and cytologic findings is required. If there is persistent clinical concern for a hematolymphoid neoplasm, consider additional specimen sampling.Specimen Type Cerebrospinal fluidAssessment of Leukocytes An enrichment procedure is attempted. However, insufficient viable CD45+ hematopoietic cells are present for analysis.Analysis and Gating Strategy 8 color analysis with 7-AAD, CD45/SSC gatingPhenotype Chart CD45 See TextResulting Path Name Marisol MendozaComment: Each antibody in this assay was utilized to assess for potential abnormalities of studied cell populations or to characterize identified abnormalities.This test was developed and its performance characteristics determined by [facility]. It has not been cleared or approved by the U.S. Food and Drug Administration.The FDA has determined that such clearance or approval is not necessary. This test is used for clinical purposes. It should not be regarded as investigational or for research. ____ TESTING PERFORMED AT [facility]. ORIGINAL REPORT ON FILE IN LAB CONTAINS ADDITIONAL TEST SITE INFORMATION. Reactive Lymphocytes RARE [facility] Thyroid Stimulating Hormone (TSH) 1.80 uIU/mL 0.358-3.74 [facility] Serum or plasma albumin quoc urement (mass/volume)Ordered By: Dr. Romero on 06-03-2022 Albumin [Mass/Vol] 3.6 g/dL 3.2-5.0 [facility] Serum or plasma cholesterol in HDL measurement (mass/volume)Ordered By: Dr. Romero on 06-03-2022 Cholesterol in HDL [Mass/Vol] 43 mg/dL >40 [facility] Comment on above: The drugs N-Acetylcy steine and Metamizole may falsely depress this assay. Reference Range HDL <40 mg/dL Low HDL Cholesterol HDL >or= 60 mg/dL High HDL Cholesterol Serum or plasma cholesterol in VLDL measurement (mass/volume)Ordered By: Dr. Romero on 06-03-2022 Cholesterol in VLDL [Mass/Vol] 53 mg/dL 5-40 [facility] Serum or plasma low density lipoprotein (LDL) cholesterol measurement (mass/volume)Ordered By: Dr. Romero on 06-03-2022 Cholesterol in LDL [Mass/Vol] 88 mg/dL 0-130 [facility] Thin prep Papanicolaou smear with manual screeningOrdered By: Dr. Romero on 06-03-2022 Thin prep Papanicolaou smear with manual screening 17 U/L 15-37 [facility] Absolute lymphocyte countOrd ered By: Dr. Winston on 06-02-2022 Lymphocytes Auto (Unsp spec) [#/Vol] 7.75 10*3/uL 0.83-4.51 [facility] Basophil percentageOrdered B y: Dr. Winston on 06-02-2022 Basophils/100 WBC (Bld) 0.9 % 0-1 [facility] Chloride [Moles/Vol] 105 mmol/L 98-107 [facility] Eosinophils/100 WBC (Bld) 8.3 % 0-5 [facility] Glucose [Mass/Vol] 171 mg/dL 74-106 [facility] Comment on above: Fasting Glucose resu lt greater than or equal to 126 mg/dL suggests DIABETES MELLITUS per A.D.A. criteria. Neutrophils (Bld) [#/Vol] 4.9 10*3/uL 2.0-7.7 [facility] Neutrophils/100 WBC (Bld) 30.9 % 47-70 [facility] Potassium [Moles/Vol] 3.9 mmol/L 3.5-5.1 [facility] Sodium [Moles/Vol] 136 mmol/L 136-145 [facility] WBC (Bld) [#/Vol] 16.0 10*3/uL 4.4-11.0 [facility] Blood erythrocytes count (nu mber/volume)Ordered By: Dr. Winston on 06-02-2022 RBC (Bld) [#/Vol] 4.22 10*6/uL 4.6-6.2 [facility] Blood hemoglobin measurement (mass/volume)Ordered By: Dr. Winston on 06-02-2022 Hemoglobin (Bld) [Mass/Vol] 13.0 g/dL 13.0-16.5 [facility] Blood lymphocytes/100 leukoc ytesOrdered By: Dr. Winston on 06-02-2022 Lymphocytes/100 WBC (Bld) 48.6 % 19-41 [facility] Blood manual differential co mment interpretation (narrative result)Ordered By: Dr. Winston on 06-02-2022 Manual differential comment Andrew (Bld) [Interp] SCANNED [facility] Comment on above: LYMPHOCYTOSIS NOTED Blood monocytes/100 leukocyt esOrdered By: [address] Winston on 06-02-2022 Monocytes/100 WBC (Bld) 11.0 % 0-10 [facility] Blood platelet mean volumeOr dered By: Dr. Winston on 06-02-2022 Platelet mean volume (Bld) [Entitic vol] 11.0 fL 6.2-12.0 [facility] Determination of erythrocyte mean corpuscular volume (MCV)Ordered By: Dr. Winston on 06-02-2022 MCV (RBC) [Entitic vol] 91.2 fL 80-94 [facility] Glucose Glucometer (BldC) [M ass/Vol]Ordered By: Dr. Winston on 06-02-2022 Glucose [Mass/Vol] 159 mg/dL 74-106 [facility] Comment on above: MANAGEMENT OF PATIEN T CARE PER NURSING PROTOCOL Hematocrit Auto (Bld) [Volum e fraction]Ordered By: Dr. Winston on 06-02-2022 Hematocrit (Bld) [Volume fraction] 38.5 % 40-54 [facility] INR in Blood by Coagulation assayOrdered By: Dr. Winston on 06-02-2022 INR Coag (Bld) [Relative time] 0.9 {INR} [facility] Laboratory - Chemistry and C hemistry - challengeOrdered By: Dr. Winston on 06-02-2022 CO2 [Moles/Vol] 24.0 mmol/L 21.0-32.0 [facility] Urea nitrogen/Creatinine [Mass ratio] 20.3 mg/mg 10-20 [facility] Laboratory - CoagulationOrde red By: Dr. Winston on 06-02-2022 aPTT Coag (Bld) [Time] 30.3 s 24.1-36.2 [facility] PT Coag (PPP) [Time] 12.2 s 11.7-14.9 [facility] Laboratory - Hematology and Cell countsOrdered By: Dr. Winston on 06-02-2022 Erythrocyte distribution width (RBC) [Entitic vol] 44.3 fL 35.1-43.9 [facility] Erythrocyte distribution width (RBC) [Ratio] 13.2 % 11.6-14.6 [facility] Immature granulocytes/100 WBC (Bld) 0.300 % 0.0-0.9 [facility] Comment on above: IG% - Immature Granu locytes (promyelocytes, myelocytes and metamyelocytes) > 1% indicates that a LEFT SHIFT is Present. MCH (RBC) [Entitic mass] 30.8 pg 27.0-32.0 [facility] Nucleated RBC/100 WBC (Bld) [Ratio] 0 % 0-5 [facility] MCHC Auto (RBC) [Mass/Vol]Or dered By: Dr. Winston on 06-02-2022 MCHC (RBC) [Mass/Vol] 33.8 g/dL 32-36 [facility] No Panel InformationOrdered By: Dr. Winston on 06-02-2022 Estimated Creatinine Clearance Calc 83.57 ml/min [facility] Estimated GFR (MDRD) Amer 106 mL/min >60 [facility] Comment on above: GFR Calc Estimated GFR (MDRD) Non-Af Amer 87 mL/min >60 [facility] Comment on above: Non- GFR Calc Troponin I High Sensitivity 4 pg/mL 3.0-78.0 [facility] Comment on above: Please Note: New Yuval t Units and Gender Specific Reference Ranges. For more information see Policy Stat Procedure [place] High Sensitivity Troponin (TNIH) and attachments. Platelets bldOrdered By: Dr. Winston on 06-02-2022 Platelets (Bld) [#/Vol] 350 10*3/uL 150-450 [facility] Serum or plasma calcium quoc urement (mass/volume)Ordered By: Dr. Winston on 06-02-2022 Calcium [Mass/Vol] 8.7 mg/dL 8.5-10.1 [facility] Serum or plasma creatinine m easurement (mass/volume)Ordered By: Dr. Winston on 06-02-2022 Creatinine [Mass/Vol] 0.94 mg/dL 0.70-1.30 [facility] Comment on above: The validity of the calculated GFR & GFRAA in patients over 70 years has not been determined. Clinical correlation is essential. Serum or plasma urea nitroge n measurement (mass/volume)Ordered By: Dr. Winston on 06-02-2022 Urea nitrogen [Mass/Vol] 19 mg/dL 7-18 [facility] Thin prep Papanicolaou smear with manual screeningOrdered By: Dr. Winston on 06-02-2022 Thin prep Papanicolaou smear with manual screening 7 5-15 [facility] Laboratory - Microbiology an d Antimicrobial susceptibilityOrdered By: Gonzales Mosquera on 03-26-2022 SARS-CoV-2 (COVID-19) RNA TRENT+probe Ql (Unsp spec) Detected Not Detect [facility] Comment on above: Normal Reference Ran ge: Not DetectedMethod:(RT-PCR) real-time reverse transcriptase PCRLuminex VLAD Instrument*The Food and Drug Administration (FDA) has issued an Emergency Use Authorization (EAU) for the VLAD SARS-CoV-2 Assay for the rapid detection of the virus that causes COVID-19. This test has been validated, but the FDAs independent review of this validation is pending.*Negative results do not preclude infection and should not be used as the sole basis for treatment or patient management. Optimum specimen types and timing for peak viral levels during infections caused by SARS-CoV-2 have not been determined. Collection of multiple specimens from the same patient may be necessary to detect the virus. The possibility of a false negative result should be considered if the patient has clinical presentation or has had recent exposure. No Panel Informationon 03-26 Influenza Types A,B Rapid (Clinic) Negative [facility] Laboratory - Hematology and Cell countson 02-20-2022 HbA1c (Bld) [Mass fraction] 8.5 % 4.2-6.3 [facility] Laboratory - Microbiology an d Antimicrobial susceptibilityOrdered By: Gonzales Mosquera on 02-20-2022 SARS-CoV-2 (COVID-19) RNA TRENT+probe Ql (Unsp spec) Not detected Not Detect [facility] Comment on above: Normal Reference Ran ge: Not DetectedMethod:(RT-PCR) real-time reverse transcriptase PCRLuminex VLAD Instrument*The Food and Drug Administration (FDA) has issued an Emergency Use Authorization (EAU) for the VLAD SARS-CoV-2 Assay for the rapid detection of the virus that causes COVID-19. This test has been validated, but the FDAs independent review of this validation is pending.*Negative results do not preclude infection and should not be used as the sole basis for treatment or patient management. Optimum specimen types and timing for peak viral levels during infections caused by SARS-CoV-2 have not been determined. Collection of multiple specimens from the same patient may be necessary to detect the virus. The possibility of a false negative result should be considered if the patient has clinical presentation or has had recent exposure. Laboratory - Microbiology an d Antimicrobial susceptibilityon 11-13-2021 SARS-CoV-2 (COVID-19) RNA TRENT+probe Ql (Unsp spec) Not detected Not Detect [facility] Work Phone: Comment on above: Normal Reference Ran ge: Not DetectedMethod:(RT-PCR) real-time reverse transcriptase PCRLuminex VLAD Instrument*The Food and Drug Administration (FDA) has issued an Emergency Use Authorization (EAU) for the [employer] SARS-CoV-2 Assay for the rapid detection of the virus that causes COVID-19. This test has been validated, but the FDAs independent review of this validation is pending.*Negative results do not preclude infection and should not be used as the sole basis for treatment or patient management. Optimum specimen types and timing for peak viral levels during infections caused by SARS-CoV-2 have not been determined. Collection of multiple specimens from the same patient may be necessary to detect the virus. The possibility of a false negative result should be considered if the patient has clinical presentation or has had recent exposure. Laboratory - Hematology and Cell countson 10-23-2021 HbA1c (Bld) [Mass fraction] 6.4 % 4.2-6.3 [facility] Work Phone: Absolute lymphocyte counton 10-16-2021 Lymphocytes Auto (Unsp spec) [#/Vol] 6.19 10*3/uL 0.83-4.51 [facility] Work Phone: Basophil percentageon 2021 Basophils/100 WBC (Bld) 0.8 % 0-1 [facility] Work Phone: Eosinophils/100 WBC (Bld) 5.8 % 0-5 [facility] Work Phone: Neutrophils (Bld) [#/Vol] 5.3 10*3/uL 2.0-7.7 [facility] Work Phone: Neutrophils/100 WBC (Bld) 38.4 % 47-70 [facility] Work Phone: WBC (Bld) [#/Vol] 13.9 10*3/uL 4.4-11.0 [facility] Work Phone: Blood erythrocytes count (nu mber/volume)on 10-16-2021 RBC (Bld) [#/Vol] 3.98 10*6/uL 4.6-6.2 [facility] Work Phone: [phone] Blood hemoglobin measurement (mass/volume)on 10-16-2021 Hemoglobin (Bld) [Mass/Vol] 12.5 g/dL 13.0-16.5 [facility] Work Phone: Blood lymphocytes/100 leukoc yteson 10-16-2021 Lymphocytes/100 WBC (Bld) 44.5 % 19-41 [facility] Work Phone: Blood monocytes/100 leukocyt eson 10-16-2021 Monocytes/100 WBC (Bld) 10.2 % 0-10 [facility] Work Phone: Blood platelet adequacy dete ction by light microscopyon 10-16-2021 Platelets LM Ql (Bld) ADEQUATE ADEQ [facility] Work Phone: Blood platelet mean volumeon 10-16-2021 Platelet mean volume (Bld) [Entitic vol] 11.4 fL 6.2-12.0 [facility] Work Phone: [phone] Determination of erythrocyte mean corpuscular volume (MCV)on 10-16-2021 MCV (RBC) [Entitic vol] 95.2 fL 80-94 [facility] Work Phone: Hematocrit Auto (Bld) [Volum e fraction]on 10-16-2021 Hematocrit (Bld) [Volume fraction] 37.9 % 40-54 [facility] Work Phone: Laboratory - Hematology and Cell countson 10-16-2021 Erythrocyte distribution width (RBC) [Entitic vol] 48.6 fL 35.1-43.9 [facility] Work Phone: Erythrocyte distribution width (RBC) [Ratio] 14.0 % 11.6-14.6 [facility] Work Phone: Immature granulocytes/100 WBC (Bld) 0.300 % 0.0-0.9 [facility] Work Phone: Comment on above: IG% - Immature Granu locytes (promyelocytes, myelocytes and metamyelocytes) > 1% indicates that a LEFT SHIFT is Present. MCH (RBC) [Entitic mass] 31.4 pg 27.0-32.0 [facility] Work Phone: Nucleated RBC/100 WBC (Bld) [Ratio] 0 % 0-5 [facility] Work Phone: MCHC Auto (RBC) [Mass/Vol]on 10-16-2021 MCHC (RBC) [Mass/Vol] 33.0 g/dL 32-36 [facility]: Platelets bldon 10-16-2021 Platelets (Bld) [#/Vol] 412 10*3/uL 150-450 [facility] Work Phone: RBC morphologyon 10-16-2021 RBC morphology finding Nom (Bld) NORM C+C NORMAL NORM C&C [facility] Work Phone: Laboratory - Hematology and Cell countson 07-20-2021 HbA1c (Bld) [Mass fraction] 9.3 % 4.2-6.3 [facility] Work Phone: Absolute lymphocyte counton 06-28-2021 Lymphocytes Auto (Unsp spec) [#/Vol] 5.17 10*3/uL 0.83-4.51 [facility] Work Phone: Basophil percentageon 2021 Basophils/100 WBC (Bld) 0.8 % 0-1 [facility] Work Phone: Chloride [Moles/Vol] 105 mmol/L 98-107 [facility] Work Phone: Eosinophils/100 WBC (Bld) 4.0 % 0-5 [facility] Work Phone: Glucose [Mass/Vol] 296 mg/dL 74-106 [facility] Work Phone: Comment on above: Glucose result great er than or equal to 200 mg/dLsuggests DIABETES MELLITUS per A.D.A. criteria. Neutrophils (Bld) [#/Vol] 6.8 10*3/uL 2.0-7.7 [facility] Work Phone: [phone] Neutrophils/100 WBC (Bld) 44.3 % 47-70 [facility] Work Phone: [phone] Potassium [Moles/Vol] 3.6 mmol/L 3.5-5.1 [facility] Work Phone: [phone] Sodium [Moles/Vol] 136 mmol/L 136-145 [facility] Work Phone: [phone] WBC (Bld) [#/Vol] 15.4 10*3/uL 4.4-11.0 [facility] Work [facility]: Blood erythrocytes count (nu mber/volume)on 06-28-2021 RBC (Bld) [#/Vol] 3.97 10*6/uL 4.6-6.2 [facility] Work Phone: Blood hemoglobin measurement (mass/volume)on 06-28-2021 Hemoglobin (Bld) [Mass/Vol] 12.7 g/dL 13.0-16.5 [facility] Work Phone: [phone] Blood lymphocytes/100 leukoc yteson 06-28-2021 Lymphocytes/100 WBC (Bld) 33.5 % 19-41 [facility] Work Phone: Blood manual differential co mment interpretation (narrative result)on 06-28-2021 Manual differential comment Andrew (Bld) [Interp] SCANNED [facility] Work Phone: Comment on above: LYMPHOCYTOSIS NOTEDM ONOCYTOSIS NOTED Blood monocytes/100 leukocyt eson 06-28-2021 Monocytes/100 WBC (Bld) 17.0 % 0-10 [facility] Work Phone: Blood platelet mean volumeon 06-28-2021 Platelet mean volume (Bld) [Entitic vol] 11.0 fL 6.2-12.0 [facility] Work Phone: Determination of erythrocyte mean corpuscular volume (MCV)on 06-28-2021 MCV (RBC) [Entitic vol] 94.0 fL 80-94 [facility] Work Phone: Hematocrit Auto (Bld) [Volum e fraction]on 06-28-2021 Hematocrit (Bld) [Volume fraction] 37.3 % 40-54 [facility] Work Phone: Laboratory - Chemistry and C hemistry - challengeon 06-28-2021 CO2 [Moles/Vol] 25.0 mmol/L 21.0-32.0 [facility] Work Phone: [phone] Natriuretic peptide B (Bld) [Mass/Vol] 19.6 pg/mL 0-100 [facility] Work Phone: [phone] Urea nitrogen/Creatinine [Mass ratio] 15.5 mg/mg 10-20 [facility] Work Phone: Laboratory - Hematology and Cell countson 06-28-2021 Erythrocyte distribution width (RBC) [Entitic vol] 44.7 fL 35.1-43.9 [facility] Work Phone: [phone] Erythrocyte distribution width (RBC) [Ratio] 13.1 % 11.6-14.6 [facility] Work Phone: [phone] Immature granulocytes/100 WBC (Bld) 0.400 % 0.0-0.9 [facility] Work Phone: [phone] Comment on above: IG% - Immature Granu locytes (promyelocytes, myelocytes and metamyelocytes) > 1% indicates that a LEFT SHIFT is Present. MCH (RBC) [Entitic mass] 32.0 pg 27.0-32.0 [facility] Work Phone: [phone] Nucleated RBC/100 WBC (Bld) [Ratio] 0 % 0-5 [facility] Work Phone: [phone] MCHC Auto (RBC) [Mass/Vol]on 06-28-2021 MCHC (RBC) [Mass/Vol] 34.0 g/dL 32-36 [facility] Work Phone: No Panel Informationon 06-28 Estimated Creatinine Clearance Calc 103.30 ml/min [facility] Work Phone: Estimated GFR (MDRD) Amer 132 mL/min >60 [facility] Work Phone: Comment on above: GFR Calc Estimated GFR (MDRD) Non-Af Amer 109 mL/min >60 [facility] Work Phone: Comment on above: Non- GFR Calc Troponin I High Sensitivity < 3 pg/mL 3.0-78.0 [facility] Work Phone: Comment on above: Please Note: New Yuval t Units and Gender Specific Reference Ranges. For more information see Policy Stat Procedure [place] High Sensitivity Troponin (TNIH) and attachments. Platelets bldon 06-28-2021 Platelets (Bld) [#/Vol] 263 10*3/uL 150-450 [facility] Work Phone: Review by pathologiston 06-09 Pathologist review Andrew (Unsp spec) [Interp] Reviewed [facility] Work Phone: Comment on above: Previous reported re sult: Petra vogel Edited by: RGOPACO on 06/29/21:1357Leukocytosis. Clinical correlation necessary.Mychal Carmichael M.D. 06/29/21 AMENDED REPORT 06/29/21 1357 PATH REV previously reported as: Petra vogel Serum or plasma calcium quoc urement (mass/volume)on 06-28-2021 Calcium [Mass/Vol] 8.5 mg/dL 8.5-10.1 [facility] Work Phone: Serum or plasma creatinine m easurement (mass/volume)on 06-28-2021 Creatinine [Mass/Vol] 0.77 mg/dL 0.70-1.30 [facility] Work Phone: Comment on above: The validity of the calculated GFR & GFRAA in patients over 70 years has not been determined. Clinical correlation is essential. Serum or plasma urea nitroge n measurement (mass/volume)on 06-28-2021 Urea nitrogen [Mass/Vol] 12 mg/dL 7-18 [facility] Work Phone: Thin prep Papanicolaou smear with manual screeningon 06-28-2021 Thin prep Papanicolaou smear with manual screening 6 5-15 [facility] Work Phone: Rapid Influenza A and B NAAT on 05-02-2018 Rapid Influenza A NAAT Positive Abnormal Negative So [facility] Comment on above: Result Comment: Humza ected result by DCM; reported previously as Negative on 05/01/18 at 23:53 by DCM Performed By: #### F DANN ####[facility] Laboratory ServicesDr. Jl Jensen MD[address] [place] [address] [id number] Basic Metabolic Panelon 10-0 Creatinine mass conc 1.010 mg/dL Normal 0.700-1 .30 0 [facility] Comment on above: Performed By: #### B MP ####[facility] Laboratory ServicesDr. Jl Jensen MD[address] [place] [address] GFR/1.73 sq M predicted among non-blacks MDRD vol rate/area (S/P/Bld) 81 mL/min/{1.73_m2} Normal [facility] Comment on above: Result Comment: K/DO QI Guideline: Stage 1 >/=90 mL/min/1.73m2 - Not Consistent with CKD Stage 2 60-89 mL/min/1.73m2 - Consistent with Mild CKD Stage 3 30-59 mL/min/1.73m2 - Consistent with Moderate CKD Stage 4 15-29 mL/min/1.73m2 - Consistent with Severe CKD Stage 5 <15 mL/min/1.73m2 - Consistent with Kidney Failure Estimated Glomerular Filtration Rate (eGFR) is a calculated value utilizing the MDRD equation and provides an estimate of renal function. The equation assumes a steady state and should not be used for patients that meet any of the following criteria: - Are younger than 18 or older than 70 - Have rapidly fluctuating kidney function - Are - Have serious comorbid conditions - Have extremes of body size - Have extremes of muscle mass - Have extremes of nutritional status - Are non- or non- - Have normal kidney function Performed By: #### B MP ####[facility] Laboratory ServicesDr. Moodymandeep Morenogayle [address] [address] Glucose mass conc 225 mg/dL High 74-106 [facility] Comment on above: Performed By: #### B MP ####[facility] Laboratory ServicesDr. Jl Jensen [address] [address] Urea nitrogen mass conc 16 mg/dL Normal 7-18 [facility] Comment on above: Performed By: #### B MP ####[facility] Laboratory ServicesDr. Jl Jensen [address] [address] Calcium mass conc 9.5 mg/dL Normal 8.5-10.1 [facility] Comment on above: Performed By: #### B MP ####[facility] Laboratory ServicesDr. Jl Jensen [address] [address] CO2 molar conc 27.0 mmol/L Normal 21.0-32.0 [facility] Comment on above: Performed By: #### B MP ####[facility] Laboratory ServicesDr. Jl Jensen [address] [address] Chloride molar conc 103 mmol/L Normal 100-108 [facility] Comment on above: Performed By: #### B MP ####[facility] Laboratory ServicesDr. Jl Jensen [address] [address] Potassium molar conc 4.1 mmol/L Normal 3.5-5.1 [facility] Comment on above: Performed By: #### B MP ####[facility] Laboratory ServicesDr. Jl Jensen [address] [address] Sodium molar conc 137 mmol/L Normal 136-145 [facility] Comment on above: Performed By: #### B MP ####[facility] Laboratory ServicesDr. Jl Jensen [address] [address] CBC With Platelet and Differ entialon 12-16-2017 Abs. Basophils 0.18 10*3/uL High 0.00-0.10 [facility] Comment on above: Performed By: #### C BC ####[facility] Laboratory ServicesDr. Jl Jensen [address] [address] Abs. Neutrophils 8.24 10*3/uL High 1.70-7.00 [facility] Comment on above: Performed By: #### C BC ####[facility] Laboratory ServicesDr. Jl Jensen [address] [address] Basophils/100 WBC (Bld) 1.2 % Normal 0.0-1.[address] [facility] Comment on above: Performed By: #### C BC ####[facility] Laboratory ServicesDr. Jl Jensen [address] [address] Differential Automated Normal [facility] Comment on above: Performed By: #### C BC ####[facility] Laboratory ServicesDr. Jl Jensen [address] [address] Eosinophils #/vol (Bld) 0.44 10*3/uL Normal 0.00-0.50 [facility] Comment on above: Performed By: #### C BC ####[facility] Laboratory ServicesDr. Jl Jensen [address] [address] Eosinophils/100 WBC (Bld) 3.0 % Normal 0.0-5.8 [facility] Comment on above: Performed By: #### C BC ####[facility] Laboratory ServicesDr. Jl Jensen MD[address] [place] [address] Erythrocyte distribution width Ratio (RBC) 12.9 % Normal 11.6-14.8 [facility] Comment on above: Performed By: #### C BC ####[facility] Laboratory ServicesDr. Jl Jensen [address] [address] Hematocrit Volume Fraction (Bld) 40.0 % Low 41.0-53.0 [facility] Comment on above: Performed By: #### C BC ####[facility] Laboratory ServicesDr. Jl Jensen [address] [address] Hemoglobin mass conc (Bld) 13.8 g/dL Normal 13.5-17.7 [facility] Comment on above: Performed By: #### C BC ####[facility] Laboratory ServicesDr. Jl Jensen [address] [address] Lymphocytes #/vol (Bld) 4.07 10*3/uL High 0.80-3.30 [facility] Comment on above: Performed By: #### C BC ####[facility] Laboratory ServicesDr. Jl Jensen [address] [address] Lymphocytes/100 WBC (Bld) 28.1 % Normal 13.4-45.1 [facility] Comment on above: Performed By: #### C BC ####[facility] Laboratory ServicesDr. Jl Jensen [address] [address] MCH Entitic mass (RBC) 31.4 pg Normal 27.2-33.0 [facility] Comment on above: Performed By: #### C BC ####[facility] Laboratory ServicesDr. Jl Jensen [address] [address] MCHC mass conc (RBC) 34.5 g/dL Normal 31.9-35.1 [facility] Comment on above: Performed By: #### C BC ####[facility] Laboratory ServicesDr. Jl Jensen [address] [address] MCV Entitic volume (RBC) 90.9 fL Normal 81.7-97.1 [facility] Comment on above: Performed By: #### C BC ####[facility] Laboratory ServicesDr. Jl Jensen MD[address] [place] [address] Monocytes #/vol (Bld) 1.51 10*3/uL High 0.30-0.90 [facility] Comment on above: Performed By: #### C BC ####[facility] Laboratory ServicesDr. Jl Jensen [address] [address] Monocytes/100 WBC (Bld) 10.4 % Normal 4.0-12.7 [facility] Comment on above: Performed By: #### C BC ####[facility] Laboratory ServicesDr. Jl Jensen [address] [address] Neutrophils/100 WBC (Bld) 57.0 % Normal 41.1-75.9 [facility] Comment on above: Performed By: #### C BC ####[facility] Laboratory ServicesDr. Jl Jensen [address] [address] Platelet mean volume Entitic volume (Bld) 11.4 fL Normal 8.6-12.2 [facility] Comment on above: Performed By: #### C BC ####[facility] Laboratory ServicesDr. Jl Jensen [address] [address] Platelets #/vol (Bld) 208 10*3/uL Normal 133-425 [facility] Comment on above: Performed By: #### C BC ####[facility] Laboratory ServicesDr. Jl Jensen [address] [address] RBC #/vol (Bld) 4.40 10*6/uL Normal 3.90-5.90 [facility] Comment on above: Performed By: #### C BC ####[facility] Laboratory ServicesDr. Jl Jensen [id number] [place] [address] WBC #/vol (Bld) 14.5 10*3/uL High 4.5-11.0 [facility] Comment on above: Performed By: #### C BC ####[facility] Laboratory ServicesDr. Jl Jensen [id number] [place] [address] ABDOMEN AND PELVIS W/O CO NTRAST (NO PREP)on 12-16-2017 CT ABDOMEN AND PELVIS W/O CONTRAST (NO PREP) PROCEDURE: CT ABDOMEN AND PELVIS W/O CONTRAST (NO PREP) CLINICAL: POSS RENAL CALCULI TECHNIQUE: Noncontrast CT of the abdomen and pelvis. COMPARISON: CT abdomen and pelvis 01/25/2017. FINDINGS: Lower Thorax: The lung bases are clear. Interval resolution of infiltrate in the left lower lobe identified on the prior CT. Liver: Mildly enlarged, diffusely fatty infiltrated liver. Gallbladder: Contracted gallbladder. Spleen: Status post splenectomy. Small amount of presumed residual splenic tissue noted at the splenectomy bed, unchanged Pancreas: The pancreas is normal. No evidence of acute pancreatic abnormality. Adrenal Glands: The adrenal glands are normal. Kidneys / Ureters / Urinary Bladder: Punctate nonobstructing calculus in the right renal collecting system. No additional renal or ureteral calculi bilaterally. No evidence of hydronephrosis or hydroureter. Underdistended urinary bladder. Gastrointestinal: The small and large bowel are of normal caliber without evidence of obstruction or ileus. Mesentery: The mesentery is normal. Peritoneum: No free fluid. No free air. Reproductive: Mild prostatomegaly. Aorta: Normal caliber abdominal aorta. Moderate calcified atherosclerotic plaque. Lymph Nodes: No pathologically enlarged lymph nodes. Soft Tissues: No significant soft tissue abnormality. Osseous Structures: Degenerative changes of the bilateral hips. IMPRESSION: Nonobstructing punctate calculus in the right renal collecting system. No hydronephrosis or hydroureter. Enlarged, diffusely fatty infiltrated liver. Mild prostatomegaly. PQRS: PQRS 436 - Radiation Consideration for Adult CT: Utilization of Dose Lowering Techniques Individualized dose optimization techniques were utilized for the performance of the above-mentioned procedure. Dose optimization techniques employed during this evaluation include: automated exposure control, patient adjusted mA and/or kV, and iterative reconstruction techniques. Electronically signed by: Seymour Booth M.D. Date/time: 12-16-2017, 07:58 PM Final Report Normal [facility] UA Micro Reflex to Cultureon 12-16-2017 Bacteria LM.HPF #/area (Urine sed) None Normal None [facility] Comment on above: Performed By: #### U ELENA ####[facility] Laboratory ServicesDr. Jl Jensen [address] [address] Hyaline Cast 0 Normal 0-5 [facility] Comment on above: Performed By: #### U ELENA ####[facility] Laboratory ServicesDr. Jl Jensen MD[address] [place] [address] Red Blood Cells (Urine) 2 [HPF] Normal 0-5 [facility] Comment on above: Performed By: #### U ELENA ####[facility] Laboratory ServicesDrKelvin Jensen [address] [address] Squamous Epithelial Cells 0 [HPF] Normal 0-4 [facility] Comment on above: Performed By: #### U ELENA ####[facility] Laboratory ServicesDrKelvin Jensen MD[address] [place] [address] White Blood Cells (Urine) 1 [HPF] Normal 0-4 [facility] Comment on above: Performed By: #### U ELENA ####[facility] Laboratory ServicesDrKelvin Jensen MD[address] [place] [address] Appearance Nom (U) Clear Normal Clear [facility] Comment on above: Performed By: #### U ELENA ####[facility] Laboratory ServicesDr. Jl Morenoagyle [address] [address] Bilirubin mass conc Negative Normal Negative [facility] Comment on above: Performed By: #### U ELENA ####[facility] Laboratory ServicesDr. Jl Morenogayle [address] [address] Blood (Urine) Negative Normal Negative [facility] Comment on above: Performed By: #### U ELENA ####[facility] Laboratory ServicesDr. Jl Mikey [address] [address] Color Nom (U) Yellow Normal Yellow [facility] Comment on above: Performed By: #### U ELENA ####[facility] Laboratory ServicesDr. Moodymandeep Mikey [address] [address] Glucose mass conc 100 mg/dL Abnormal Negative [facility] Comment on above: Performed By: #### U ELENA ####[facility] Laboratory ServicesDr. Jl Jensen [address] [address] Ketones Ql (U) Negative Normal Negative [facility] Comment on above: Performed By: #### U ELENA ####[facility] Laboratory ServicesDr. Jl Jensen [address] [address] Leukocyte esterase Test strip Ql (U) Negative Normal Negative [facility] Comment on above: Performed By: #### U ELENA ####[facility] Laboratory ServicesDr. Jl Jensen [address] [address] Nitrite Ql (U) Negative Normal Negative [facility] Comment on above: Performed By: #### U ELENA ####[facility] Laboratory ServicesDrKelvin Jensen [address] [address] pH (U) 6.0 [pH] Normal <=7.5 [facility] Comment on above: Performed By: #### U ELENA ####[facility] Laboratory ServicesDr. Jl Jensen [address] [address] Protein mass conc Negative Normal Negative [facility] Comment on above: Performed By: #### U ELENA ####[facility] Laboratory ServicesDr. Jl Jensen [address] [address] Specific gravity Relative Density (U) 1.024 Normal 1.005-1.02 5 [facility] Comment on above: Performed By: #### U ELENA ####[facility] Laboratory ServicesDr. Jl Jensen [address] [address] Urobilinogen Qn (U) 0.2 Normal 0-2.0 [facility] Comment on above: Performed By: #### U ELENA ####[facility] Laboratory ServicesDr. Jl Jensen [address] [address] Urine Type Clean catch Normal [facility] Comment on above: Performed By: #### U ELENA ####[facility] Laboratory ServicesDr. Jl Jensen [address] [address] [id number] 12-15-2017 CXR2V Misti Kern [address] [place] [address] XRay Report Signed PRELIMINARY DRAFT REPORT UNTIL ELECTRONICALLY SIGNED 0 PATIENT: Temo Wilkes MR#: [id number] : 1960 AGE/SEX: 57 / M ADMITTED: 12/15/17 OUTSIDE LOCN: LOCATION: [facility] ATTENDIN ORDER PHYSICIAN: Roney Andrews BIRAD: DATE OF SERVICE: 12/15/17 FOLLOW UP: ACCESSION NUMBERS(S): [id number] PROCEDURE(S): XR chest 2V REASON FOR EXAM: Cough and left side pain 0 cc: Roney Andrews; Macario Tyler; EXAMINATION: TWO VIEWS OF THE CHEST 12/15/2017 3:05 pm COMPARISON: Chest x-ray from 12/01/2016 HISTORY: ORDERING SYSTEM PROVIDED HISTORY: Cough and left side pain FINDINGS: Electronic device is seen external to the patient overlying the left upper chest. Similar appearance of surgical clips projecting over the left axilla left upper quadrant of the abdomen. There is no focal airspace consolidation, pleural effusion or pneumothorax. The cardiomediastinal silhouette appears within normal limits and there is no pulmonary vascular congestion. Visualized osseous structures appear intact, and grossly unremarkable, given the non dedicated imaging. XR/XR chest 2V IMPRESSION: No radiographic evidence for acute cardiopulmonary disease process. D/ / Yo Oliveros / Yo Oliveros Interpreting Provider: Yo Oliveros Normal [facility] Emergency Documentationon Emergency Documentation [address] [address] Emergency Department Note Signed PRELIMINARY DRAFT REPORT UNTIL ELECTRONICALLY SIGNED 0 PATIENT: Temo Wilkes MR#: [id number] : 1960 AGE/SEX: 57 / M ADMITTED: 12/15/17 OUTSIDE LOCN: LOCATION: [facility] ATTENDING: cc: Macario Tyler; Disposition Clinical Impression: Viral syndrome Acute lumbar myofascial strain Qualifiers: Encounter type: initial encounter Qualified Code(s): S39.012A - Strain of muscle, fascia and tendon of lower back, initial encounter Disposition: Home, Self-Care Condition: Good Instructions: Viral Syndrome (ED), Low Back Strain (ED) Referrals: Macario Tyler DO [Primary Care Provider] - (Call tomorrow to discuss this ER visit and arrange follow-up.) Forms: ED Satisfaction Letter, Work/School Release Time of Disposition: 15:23 URI/Sore Throat HPI - General Chief Complaint: ED Upper Respiratory Infection Stated Complaint: runny nose, prod cough, tired, pain to lt flank ar Time Seen by Provider: 12/15/17 14:36 Source: patient Mode of arrival: private vehicle Limitations: no limitations Nursing Notes Reviewed: Yes Vital Signs Reviewed: Yes - History of Present Illness Pt Subjective Complaint: cough, flu symptoms, rhinorrhea Onset (ago): day(s) (Yesterday) Duration: constant Severity: moderate Improves with: nothing Worsens with: nothing If sputum, description: other (Brownish) Associated symptoms: Reports: myalgias, rhinorrhea, nasal congestion, cough, other (Patient also complains of pain to his back on the left hand side which she described as sharp and rates it as moderate. It hurts to move his torso. Also hurts more when he coughs.). Denies: fever, dysuria - Related Data Home Medications Medication Instructions Recorded Confirmed Fenofibrate [Lofibra] 160 mg PO DAILY 01/17/15 12/15/17 Metformin [Glucophage] 1,000 mg PO BIDWM 01/17/15 12/15/17 Glimepiride [Amaryl] 4 mg PO DAILY 12/01/16 12/15/17 Linagliptin [Tradjenta] 5 mg PO DAILY 12/01/16 12/15/17 Losartan Potassium [Cozaar] 100 mg PO DAILY 12/01/16 12/15/17 amLODIPine [Norvasc] 5 mg PO DAILY 12/01/16 12/15/17 Aspirin [Lo-Dose Aspirin EC] 81 mg PO DAILY 12/15/17 12/15/17 Atorvastatin [Lipitor] 40 mg PO HS 12/15/17 12/15/17 Metoprolol Tartrate [Lopressor] 50 mg PO BID 12/15/17 12/15/17 Omeprazole [PriLOSEC] 20 mg PO DAILY 12/15/17 12/15/17 Allergies Allergy/AdvReac Type Severity Reaction Status Date / Time Pneumococcal Vaccine Allergy Hives Verified 12/15/17 14:26 All systems ED: reviewed and negative except as stated. Constitutional: Denies: fever Eyes: Denies: eye pain, eye discharge ENT ED: Reports: congestion. Denies: ear pain, throat pain Cardiovascular: Denies: chest pain, palpitations Respiratory: Reports: cough. Denies: dyspnea, wheezes Gastrointestinal: Reports: nausea. Denies: abdominal pain, vomiting, diarrhea Genitourinary: Denies: urgency, dysuria, frequency Musculoskeletal: Reports: back pain Integumentary: Denies: rash Neurological: Reports: headache Endocrine: Reports: fatigue URI PMH - Past Medical History Medical history: Reports: diabetes, hyperlipidemia, hypertension, seizures, TIA, valvular heart disease, other Surgical history: Reports: appendectomy, splenectomy Psychiatric history: Reports: no psych history - Social History Smoking Status: Former smoker Alcohol use: Reports: none Drug use: Reports: none Physical Exam - General Limitations: no limitations General appearance: alert, in no apparent distress - Head Head exam: atraumatic, normocephalic, normal inspection - Eye Eye exam: Present: normal appearance, PERRL, EOMI. Absent: scleral icterus, conjunctival injection - ENT ENT exam: normal exam, normal oropharynx, mucous membranes moist, TM's normal bilaterally, normal external ear exam - Neck Neck exam: Present: normal inspection, full ROM. Absent: meningismus, lymphadenopathy - Chest Chest inspection: Present: normal inspection, symmetric chest wall rise. Absent: tenderness - Respiratory Respiratory exam: Present: normal lung sounds bilaterally. Absent: respiratory distress, wheezes - Cardiovascular Cardiovascular exam: Present: regular rate, normal rhythm, normal heart sounds - Abdominal Exam Abdominal exam: Present: soft, Non-Tender, normal bowel sounds - Extremities Exam Extremities exam: Present: normal inspection. Absent: pedal edema - Back Exam Back exam: Present: tenderness (2 left paralumbar musculature. Pain is increased by having the patient go through range of motion) - Neurological Exam Neurological exam: Present: alert, oriented X3 - Psychiatric Psychiatric exam: Present: normal affect, normal mood - Skin Skin exam: Present: warm, dry. Absent: rash Course Course Narrative: Patient presents with upper respiratory congestion and feeling run down but is also coughing and producing brown sputum. I am checking for the flu. I do not hear anything in his lungs to make me think is a pneumonia but he has no spleen so better to be safe and check the x-ray. He complains of discomfort to his low back which by examination and story certainly seems like a muscular problem , most likely aggravated by his cough. I will check his urine to be on the safe side given his asplenia. Disposition will be based on diagnostic results and reevaluation. - Reevaluation(s) Reevaluation #1: Flu swab was negative. Chest x-ray was clear. Urinalysis was negative. Patient has a viral illness. I think he has muscle skeletal back pain. I advised him to use Tylenol and Advil for the discomfort. He is already using [id number] sinus decongestant which I advised him to go ahead and continue. Plenty of fluids. I will have him off work and have him follow with his PCP. We discussed things to watch for and reasons to return. Time: 15:22 Vital Signs Temperature 97.9 F 12/15/17 14:29 Pulse Rate 76 12/15/17 14:29 Respiratory Rate 18 12/15/17 14:29 Blood Pressure 169/80 12/15/17 14:29 O2 Sat by Pulse Oximetry 95 12/15/17 14:29 Temperature 97.9 F 12/15/17 14:29 Pulse Rate 76 12/15/17 14:29 Respiratory Rate 18 12/15/17 14:29 Blood Pressure 169/80 12/15/17 14:29 O2 Sat by Pulse Oximetry 95 12/15/17 14:29 Oxygen Delivery Oxygen Delivery Room Air Upper Respiratory Infection - Medical Records Medical records reviewed: Yes I reviewed the patient's medical records. - Lab Data Lab results reviewed: Yes I reviewed the patient's lab results. Lab Results 12/15/17 Range/Units 14:00 Urine Color Yellow (Yellow) Urine Clarity Clear (Clear) Urine pH 7.5 (5.0-8.0) pH Units Ur Specific Trinidad 1.020 (1.010-1.025) Urine Protein Negative (Neg-Trace) mg/dL Urine Glucose (UA) 100 H (Normal) mg/dL Urine Ketones Negative (Negative) mg/dL Urine Blood Negative (Negative) Urine Nitrite Negative (Negative) Urine Bilirubin Negative (Negative) Urine Urobilinogen Normal (Normal) mg/dL Ur Leukocyte Esterase Negative (Negative) Ur Culture Indicated? NO (NO) - Radiology Data Radiology results reviewed: Yes I reviewed the patient's radiology results. 2 Documented By: Roney Andrews MD Signed By: 12/15/17 1623 2 2 2 DD/ 1442 Initialized By: [id number] Normal [facility] Influenza A/B Antigenon 10-0 Influenza A/B Antigen Influenza A/B Anti gen: Influenza A Antigen Negative Influenza B Antigen Negative Normal [facility] Comment on above: Performed By: #### C BC #### [facility] [address] [place] [address] 22381 Urinalysis Reflex Cult Micro on 12-15-2017 Bilirubin,Urine Negative Normal Negative [facility] Comment on above: Performed By: #### C BC #### [facility] [address] [place] [address] 55346 Blood,Urine Negative Normal Negative [facility] Comment on above: Performed By: #### C BC #### [facility] [address] [place] [address] 14453 Clarity Nom (U) Clear Normal Clear [facility] Comment on above: Performed By: #### C BC #### [facility] [address] [place] [address] 33891 Color Nom (U) Yellow Normal Yellow [facility] Comment on above: Performed By: #### C BC #### [facility] [address] [place] [address] [phone] Culture Indicated,Urine NO Normal NO A [facility] Comment on above: Performed By: #### C BC #### [facility] [address] [place] [address] 29151 Glucose Ql (U) 100 mg/dL Abnormal Normal [facility] Comment on above: Performed By: #### C BC #### [facility] [address] [place] [address] 58112 Ketones Ql (U) Negative Normal Negative [facility] Comment on above: Performed By: #### C BC #### [facility] [address] [place] [address] 75877 Leukocyte esterase Test strip Ql (U) Negative Normal Negative [facility] Comment on above: Performed By: #### C BC #### [facility] [address] [place] [address] 23627 Nitrite,Urine Negative Normal Negative [facility] Comment on above: Performed By: #### C BC #### [facility] [address] [place] [address] pH (U) 7.5 pH Units Normal 5.0-8.0 [facility] Comment on above: Performed By: #### C BC #### [facility] [address] [place] [address] 43614 Protein mass conc (U) Negative Normal Neg-Trace [facility] Comment on above: Performed By: #### C BC #### [facility] [address] [place] [address] 68416 Specific Trinidad,Urine 1.020 Normal 1.010 -1.02 5 [facility] Comment on above: Performed By: #### C BC #### [facility] [address] [place] [address] 47249 Urobilinogen,Urine Normal Normal Normal [facility] Comment on above: Performed By: #### C BC #### [facility] [address] [place] [address] 39275 Basic Metabolic Panelon - Creatinine mass conc 0.824 mg/dL Normal 0.700-1 .30 0 [facility] Comment on above: Performed By: #### B MP ####[facility] Laboratory ServicesDr. Jl Jensen MD[address] [place] [address] 45662 GFR/1.73 sq M predicted among non-blacks MDRD vol rate/area (S/P/Bld) 103 mL/min/{1.73_m2} Normal [facility] Comment on above: Result Comment: K/DO QI Guideline: Stage 1 >/=90 mL/min/1.73m2 - Not Consistent with CKD Stage 2 60-89 mL/min/1.73m2 - Consistent with Mild CKD Stage 3 30-59 mL/min/1.73m2 - Consistent with Moderate CKD Stage 4 15-29 mL/min/1.73m2 - Consistent with Severe CKD Stage 5 <15 mL/min/1.73m2 - Consistent with Kidney Failure Estimated Glomerular Filtration Rate (eGFR) is a calculated value utilizing the MDRD equation and provides an estimate of renal function. The equation assumes a steady state and should not be used for patients that meet any of the following criteria: - Are younger than 18 or older than 70 - Have rapidly fluctuating kidney function - Are - Have serious comorbid conditions - Have extremes of body size - Have extremes of muscle mass - Have extremes of nutritional status - Are non- or non- - Have normal kidney function Performed By: #### B MP ####[facility] ServicesDr. Jl Jensen [address] [address] Glucose mass conc 176 mg/dL High 74-106 [facility] Comment on above: Performed By: #### B MP ####[facility] ServicesDr. Jl Jensen [address] [address] Urea nitrogen mass conc 13 mg/dL Normal 7-18 S [facility] Comment on above: Performed By: #### B MP ####[facility] ServicesDr. Jl Jensen [address] [address] Calcium mass conc 8.9 mg/dL Normal 8.5-10.1 [facility] Comment on above: Performed By: #### B MP ####[facility] ServicesDr. Jl Jensen [address] [address] CO2 molar conc 26.0 mmol/L Normal 21.0-32.0 [facility] Comment on above: Performed By: #### B MP ####[facility] ServicesDr. Jl Jensen [address] [address] Chloride molar conc 106 mmol/L Normal 100-108 [facility] Comment on above: Performed By: #### B MP ####[facility] ServicesDr. Jl Jensen [address] [address] Potassium molar conc 3.9 mmol/L Normal 3.5-5.1 [facility] Comment on above: Performed By: #### B MP ####[facility] Laboratory ServicesDrKelvin Jensen MD[address] [place] [address] 92789 Sodium molar conc 140 mmol/L Normal 136-145 [facility] Comment on above: Performed By: #### B MP ####[facility] Laboratory ServicesDr. Jl Jensen MD[address] [place] [address] 89642 CBC With Platelet and Differ entialon 09-25-2017 Abs. Basophils 0.00 10*3/uL Normal 0.00-0.10 [facility] Comment on above: Performed By: #### C BC #### [facility] Laboratory Services Dr. Jl Jensen MD [address] [place] [address] 52637 Abs. Neutrophils 10.97 10*3/uL High 1.70-7.00 [facility] Comment on above: Performed By: #### C BC #### [facility] Laboratory Services Dr. Jl Jensen MD [address] [place] [address] 70994 Basophils/100 WBC (Bld) 0.0 % Normal 0.0-1.3 [facility] Comment on above: Performed By: #### C BC #### [facility] Laboratory Services Dr. Jl Jensen MD [address] [place] [address] 32895 Eosinophils #/vol (Bld) 0.85 10*3/uL High 0.00-0.50 [facility] Comment on above: Performed By: #### C BC #### [facility] Laboratory Services Dr. Jl Jensen MD [address] [place] [address] 57980 Eosinophils/100 WBC (Bld) 4.8 % Normal 0.0-5.8 [facility] Comment on above: Performed By: #### C BC #### [facility] Dr. Jl Jensen MD [address] [place] [address] 92992 Lymphocytes #/vol (Bld) 4.43 10*3/uL High 0.80-3.30 [facility] Comment on above: Performed By: #### C BC #### [facility] Dr. Jl Jensen MD [address] [place] [address] 28789 Lymphocytes/100 WBC (Bld) 24.0 % Normal 13.4-45.1 [facility] Comment on above: Performed By: #### C BC #### [facility] Services Dr. Jl Jensen MD [address] [place] [address] 79706 Monocytes #/vol (Bld) 1.54 10*3/uL High 0.30-0.[address] [facility] Comment on above: Performed By: #### C BC #### [facility] Dr. Jl Jensen MD [address] [place] [address] 26778 Monocytes/100 WBC (Bld) 8.7 % Normal 4.0-12.[address] [facility] Comment on above: Performed By: #### C BC #### [facility] Dr. Jl Jensen MD [address] [place] [address] 31720 Neutrophils/100 WBC (Bld) 61.5 % Normal 41.1-75.9 [facility] Comment on above: Performed By: #### C BC #### [facility] Dr. Jl Jensen MD [address] [place] [address] 38635 Differential Manual Normal [facility] Comment on above: Performed By: #### C BC #### [facility] Dr. Jl Jensen MD [address] [place] [address] 76209 Erythrocyte distribution width Ratio (RBC) 12.6 % Normal 11.6-14.8 [facility] Comment on above: Performed By: #### C BC #### [facility] Services Dr. Jl Jensen MD [address] [place] [address] 36759 Hematocrit Volume Fraction (Bld) 36.8 % Low 41.0-53.0 [facility] Comment on above: Performed By: #### C BC #### [facility] Services Dr. Jl Jensen MD [address] [place] [address] 36696 Hemoglobin mass conc (Bld) 12.6 g/dL Low 13.5-17.7 [facility] Comment on above: Performed By: #### C BC #### [facility] Services Dr. Jl Jensen MD [address] [place] [address] 29322 MCH Entitic mass (RBC) 31.0 pg Normal 27.2-33.0 [facility] Comment on above: Performed By: #### C BC #### [facility] Services Dr. Jl Jensen MD [address] [place] [address] 76758 MCHC mass conc (RBC) 34.2 g/dL Normal 31.9-35.1 [facility] Comment on above: Performed By: #### C BC #### [facility] Dr. Jl Jensen MD [address] [place] [address] 22992 MCV Entitic volume (RBC) 90.6 fL Normal 81.7-97.1 [facility] Comment on above: Performed By: #### C BC #### [facility] Dr. Jl Jensen MD [address] [place] [address] 20314 Platelet mean volume Entitic volume (Bld) 10.8 fL Normal 8.6-12.2 [facility] Comment on above: Performed By: #### C BC #### [facility] Dr. Jl Jensen MD [address] [place] [address] 18716 Platelets #/vol (Bld) 442 10*3/uL High 133-425 [facility] Comment on above: Performed By: #### C BC #### [facility] Laboratory Services Dr. Jl Jensen MD [facility] [place] [address] 76394 RBC #/vol (Bld) 4.06 10*6/uL Normal 3.90-5.90 [facility] Comment on above: Performed By: #### C BC #### [facility] Laboratory Services Dr. Jl Jensen MD [address] [place] [address] 40197 WBC #/vol (Bld) 17.7 10*3/uL High 4.5-11.0 [facility] Comment on above: Performed By: #### C BC #### [facility] Laboratory Services Dr. Jl Jensen MD [address] [place] [address] 01678 Magnesiumon 09-25-2017 Magnesium mass conc 2.0 mg/dL Normal 1.8-2.4 [facility] Comment on above: Performed By: #### M AG ####[facility] Laboratory ServicesDrKelvin Jensen MD[address] [place] [address] 19690 Manual Differentialon 2017 Atypical Lymphs 1 % Normal 0-2 [facility] Comment on above: Performed By: #### M DF ####[facility] Laboratory ServicesDr. Jl Jenesn MD[address] [place] [address] 40512 Bands CANCEL Normal 0-10 [facility] Comment on above: Performed By: #### M DF ####[facility] Laboratory ServicesDr. Jl Jensen MD[address] [place] [address] 75708 Blast CANCEL Normal <1 [facility] Comment on above: Result Comment: Plea se note new reference range. Performed By: #### M DF ####[facility] Laboratory ServicesDr. Jl Jensen [address] [place] [address] 38899 Crenated Cells Present Abnormal [facility] Comment on above: Performed By: #### M DF ####[facility] Laboratory ServicesDr. Jl Jensen [address] [address] Giant Thrombocyte Present Abnormal [facility] Comment on above: Performed By: #### M DF ####[facility] Laboratory ServicesDr. Jl Jensen [address] [address] Metamyelocytes CANCEL Normal 0-10 [facility] Comment on above: Performed By: #### M DF ####[facility] Laboratory ServicesDr. Jl Fragosoumesh [address] [address] Myelocytes CANCEL Normal 0-5 [facility] Comment on above: Performed By: #### M DF ####[facility] Laboratory ServicesDr. Jl Fragosoumesh [address] [address] Polychromatic Cells Present Abnormal [facility] Comment on above: Performed By: #### M DF ####[facility] Laboratory ServicesDr. Jl Tiffaniestephanieumesh [address] [address] Protein mass conc CANCEL Normal <1 [facility] Comment on above: Performed By: #### M DF ####[facility] Laboratory ServicesDr. Jl Fragosouemsh [address] [address] Tear Drop Cells Present Abnormal [facility] Comment on above: Performed By: #### M DF ####[facility] Laboratory ServicesDrKelvin Jl Tiffaniestephanieumesh [address] [address] Note for differential see below Normal [facility] Comment on above: Result Comment: See CBC results for additional differential parameters. Performed By: #### M DF ####[facility] Laboratory ServicesDr. Jl Jensen VO4[address] [place] [address] 66055 Phosphoruson 09-25-2017 Phosphate mass conc 3.3 mg/dL Normal 2.5-4.9 [facility] Comment on above: Performed By: #### P HO ####[facility] Laboratory ServicesDr. Jl Jensen RE[address] [place] [address] 62533 HISTORY AND PHYSICALon 09-24 HISTORY AND PHYSICAL PATIENT NAME: TEMO CERVANTES AMRN: [id number] ROOM NO.: [id number] #: [id number] ADMITTED: 09 23 2017PHYSICIAN: Tania French M.D.Date of service is September 23, 2017. Time of service 2 p.m.CHIEF COMPLAINT:Stroke-like symptoms.HISTORY OF PRESENT ILLNESS:This is a 56-year-old male with diabetes mellitus type 2, hypertension,dyslipidemia, who presents to the emergency department of [facility] because ofstroke-like symptoms.It started at 5:00 in the afternoon yesterday. While the patient wasdriving, the patient experienced initially aright-sided facial numbness followed by slurring of speech and thenfollowed by right-sided hand numbness. All these events lasted for 15minutes and then completely resolved.The patient did not seek any medical attention, he called his primary carephysician today who advised further emergency department evaluation.Denies chest pain or shortness of breath. Oriented to three spheres.The patient denies to be on any antiplatelet therapy.I personally reviewed his labs. White blood cell count is 13.6, hemoglobinis 12.4. Glucose is 197. Troponin is less than 0.015.CT scan of the head ruled out acute intracranial hemorrhage.ALLERGIES:PNEUMO VAX 23 which causes hives.REVIEW OF SYSTEMS:All other systems negative except for those in the history of presentillness.HOME MEDICATIONS:Amlodipine, fenofibrate, metformin, metoprolol tartrate, Tradjenta,multivitamin, atorvastatin, glimepiride, and losartan.PAST MEDICAL HISTORY:1. Diabetes mellitus type 2.2. Obesity.3. Hypertension.4. Dyslipidemia.5. Vitamin D deficiency.6. His latest 2-D echocardiogram on file was on April 26, 2017, that showed mild tricuspid regurgitation, mild mitral regurgitation, normal ejection fraction of 55%, no comments about the intra-atrial septum.7. Radiographic evidence of mild liver enlargement, 1 x 1 cm left renal cyst, nodular left lower lobe opacities of the lung.8. Eleven years ago, he suffered from a gastrointestinal bleed. He had an upper endoscopy and a colonoscopy during that time, but he was told that the source of bleeding could not be found. This is the reason why he stopped taking aspirin.PAST SURGICAL HISTORY:1. Appendectomy.2. Lymph node surgery removal from the left axillary region.3. 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 Upper endoscopy, colonoscopy secondary to an acute gastrointestinal bleed 11 years ago.FAMILY HISTORY:Positive for multiple strokes in his father, one was massive.PERSONAL AND SOCIAL HISTORY:He quit cigarette smoking in 1994. He has an 18-pack year smoking history.He denies any alcohol or illicit drug use. He is accompanied today by hiswife.PHYSICAL EXAMINATION:Blood pressure 157 72, pulse of 72, respiratory rate of 10, temperature is97.6 , and saturating 93% on room air oxygen. General: The patient ispleasant not in acute distress.HEENT: Pupils are 4 millimeters. Extraocular muscle movements are intact.NECK: Supple. No carotid bruits.CHEST: Clear to auscultation.CARDIOVASCULAR : Normal rate, regular rhythm. No pedal edema.ABDOMEN: Soft, nontender.NEUROLOGIC: Alert, following commands. Hand quality compliance coordinator is strong. No pronator drift. No focal weakness. No tremors.SKIN: The patient has no bruising. The patient has an area of a small patch of grouped vesicles without surrounding erythema over the left anterior ankle.PSYCHIATRIC: Mood and affect are appropriate.ASSESSMENT:1. Transient ischemic attack in a patient who presented with right-sided numbness, slurring of speech, resolved, no further deficits.2. Hypertension.3. Dyslipidemia.4. Diabetes mellitus type 2.PLAN:His home antihypertensive medication readministration has been adjusted toJuly 2017, to allow permissive hypertension for now. Start intravenousfluid hydration, start aspirin 81 milligrams for secondary prevention ofstroke. Chemical deep venous thrombosis prophylaxis, keep on telemetry,aggressive risk factor modification.Please see CPOE for complete neurocardiac testing. If within normallimits, then discharge planning should follow. Inpatient admit.Electronically Signed byTania French M.D. 09 25 2017 12:26 P Tania French M.D.TJE bxd Job [id number] Doc [id number]: 09 23 2017 02:50 PT: 09 24 2017 08:10 Acc: Tania French M.D. Normal [facility] Basic Metabolic Panelon 09-07 Creatinine mass conc 1.020 mg/dL Normal 0.700-1 .30 0 [facility] Comment on above: Performed By: #### B MP #### [facility] Laboratory Services Dr. Jl Jensen MD [address] [place] [address] 45662 GFR/1.73 sq M predicted among non-blacks MDRD vol rate/area (S/P/Bld) 80 mL/min/{1.73_m2} Normal [facility] Comment on above: Result Comment: K/DO QI Guideline: Stage 1 >/=90 mL/min/1.73m2 - Not Consistent with CKD Stage 2 60-89 mL/min/1.73m2 - Consistent with Mild CKD Stage 3 30-59 mL/min/1.73m2 - Consistent with Moderate CKD Stage 4 15-29 mL/min/1.73m2 - Consistent with Severe CKD Stage 5 <15 mL/min/1.73m2 - Consistent with Kidney Failure Estimated Glomerular Filtration Rate (eGFR) is a calculated value utilizing the MDRD equation and provides an estimate of renal function. The equation assumes a steady state and should not be used for patients that meet any of the following criteria: - Are younger than 18 or older than 70 - Have rapidly fluctuating kidney function - Are - Have serious comorbid conditions - Have extremes of body size - Have extremes of muscle mass - Have extremes of nutritional status - Are non- or non- - Have normal kidney function Performed By: #### B MP #### [facility] Dr. Jl Jensen MD [address] [place] [address] 01414 CO2 molar conc 25.0 mmol/L Normal 21.0-32.0 [facility] Comment on above: Performed By: #### B MP #### [facility] Dr. Jl Jensen MD [facility] [place] [address] 52219 Glucose mass conc 197 mg/dL High 74-106 [facility] Comment on above: Performed By: #### B MP #### [facility] Dr. Jl Jensen MD [address] [place] [address] 80347 Urea nitrogen mass conc 19 mg/dL High 7-18 S [facility] Comment on above: Performed By: #### B MP #### [facility] Dr. Jl Jensen MD [address] [place] [address] 32451 Calcium mass conc 9.0 mg/dL Normal 8.5-10.1 [facility] Comment on above: Performed By: #### B MP #### [facility] Dr. Jl Jensen MD [address] [place] [address] 78321 Chloride molar conc 105 mmol/L Normal 100-108 [facility] Comment on above: Performed By: #### B MP #### [facility] Dr. Jl Jensen MD [address] [place] [address] 87284 Potassium molar conc 3.9 mmol/L Normal 3.5-5.1 [facility] Comment on above: Performed By: #### B MP #### [facility] Dr. Jl Jensen MD [address] [place] [address] 66681 Sodium molar conc 141 mmol/L Normal 136-145 [facility] Comment on above: Performed By: #### B MP #### [facility] Dr. Jl Jensen MD [address] [place] [address] 96142 CBC With Platelet and Differ entialon 09-23-2017 Abs. Basophils 0.14 10*3/uL High 0.00-0.10 [facility] Comment on above: Performed By: #### C BC #### [facility] Laboratory Services Dr. Jl Jensen MD [address] [place] [address] 98338 Abs. Neutrophils 4.62 10*3/uL Normal 1.70-7.00 [facility] Comment on above: Performed By: #### C BC #### [facility] Laboratory Services Dr. Jl Jensen MD [address] [place] [address] 80495 Basophils/100 WBC (Bld) 1.0 % Normal 0.0-1.[address] [facility] Comment on above: Performed By: #### C BC #### [facility] Laboratory Services Dr. Jl Jensen MD [address] [place] [address] 86191 Eosinophils #/vol (Bld) 0.94 10*3/uL High 0.00-0.50 [facility] Comment on above: Performed By: #### C BC #### [facility] Services Dr. Jl Jensen MD [address] [place] [address] 38726 Eosinophils/100 WBC (Bld) 6.9 % High 0.0-5.8 [facility] Comment on above: Performed By: #### C BC #### [facility] Services Dr. Jl Jensen MD [address] [place] [address] 72839 Lymphocytes #/vol (Bld) 7.34 10*3/uL High 0.80-3.30 [facility] Comment on above: Performed By: #### C BC #### [facility] Dr. Jl Jensen MD [address] [place] [address] 20799 Lymphocytes/100 WBC (Bld) 53.9 % High 13.4-45.1 [facility] Comment on above: Performed By: #### C BC #### [facility] Dr. Jl Jensen MD [address] [place] [address] 61868 Monocytes #/vol (Bld) 0.53 10*3/uL Normal 0.30-0.90 [facility] Comment on above: Performed By: #### C BC #### [facility] Laboratory Services Dr. Jl Jensen MD [address] [place] [address] 84528 Monocytes/100 WBC (Bld) 3.9 % Low 4.0-12.7 [facility] Comment on above: Performed By: #### C BC #### [facility] Laboratory Services Dr. Jl Jensen MD [address] [place] [address] 03571 Neutrophils/100 WBC (Bld) 34.3 % Low 41.1-75.9 [facility] Comment on above: Performed By: #### C BC #### [facility] Laboratory Services Dr. Jl Jensen MD [address] [place] [address] 15719 Differential Manual Normal [facility] Comment on above: Performed By: #### C BC #### [facility] Laboratory Services Dr. Jl Jensen MD [address] [place] [address] 31022 Erythrocyte distribution width Ratio (RBC) 12.5 % Normal 11.6-14.8 [facility] Comment on above: Performed By: #### C BC #### [facility] Laboratory Services Dr. Jl Jensen MD [address] [place] [address] 15511 Hematocrit Volume Fraction (Bld) 36.0 % Low 41.0-53.0 [facility] Comment on above: Performed By: #### C BC #### [facility] Laboratory Services Dr. Jl Jensen MD [address] [place] [address] 46350 Hemoglobin mass conc (Bld) 12.4 g/dL Low 13.5-17.7 [facility] Comment on above: Performed By: #### C BC #### [facility] Laboratory Services Dr. Jl Jensen MD [address] [place] [address] 00755 MCH Entitic mass (RBC) 31.0 pg Normal 27.2-33.0 [facility] Comment on above: Performed By: #### C BC #### [facility] Laboratory Services Dr. Jl Jensen MD [address] [place] [address] 55857 MCHC mass conc (RBC) 34.4 g/dL Normal 31.9-35.1 [facility] Comment on above: Performed By: #### C BC #### [facility] Laboratory Services Dr. Jl Jensen MD [address] [place] [address] 36999 MCV Entitic volume (RBC) 90.0 fL Normal 81.7-97.1 [facility] Comment on above: Performed By: #### C BC #### [facility] Laboratory Services Dr. Jl Jensen MD [address] [place] [address] 29336 Platelet mean volume Entitic volume (Bld) 10.4 fL Normal 8.6-12.2 [facility] Comment on above: Performed By: #### C BC #### [facility] Laboratory Services Dr. Jl Jensen MD [address] [place] [address] 89781 Platelets #/vol (Bld) 417 10*3/uL Normal 133-425 [facility] Comment on above: Performed By: #### C BC #### [facility] Services Dr. Jl Jensen MD [address] [place] [address] 08522 RBC #/vol (Bld) 4.00 10*6/uL Normal 3.90-5.90 [facility] Comment on above: Performed By: #### C BC #### [facility] Services Dr. Jl Jensen MD [address] [place] [address] 95045 WBC #/vol (Bld) 13.6 10*3/uL High 4.5-11.0 [facility] Comment on above: Performed By: #### C #### [facility] Laboratory Services Dr. Jl Jensen MD [facility] [address] [place] [address] 47457 CHEST PORTABLE FRONTAL 1Von 09-23-2017 CHEST PORTABLE FRONTAL 1V PROCEDURE: CHEST PORTABLE FRONTAL 1V - 35705 CLINICAL: PARESTHESIA,SLURRED SPEECH Special Instructions: = NA TECHNIQUE: CHEST - RADIOLOGIC EXAMINATION - SINGLE VIEW (FRONTAL) CPT 40623 AP portable frontal view of the chest was obtained on 09-23-2017, 12:37 PM. COMPARISON: Chest x-ray 01/18/2017 FINDINGS: The cardiomediastinal shadow is not enlarged. There is no consolidation, vascular redistribution or pleural fluid identified. IMPRESSION: There is no radiographic evidence of acute cardiopulmonary disease within the limits of this single view obtained. RECOMMENDATION: Follow-up PA and lateral chest radiographs would be of benefit for a more thorough evaluation of the thorax when the patient's condition permits. Electronically signed by: Huong Cameron M.D. Date/time: 09-23-2017, 12:51 PM Final Report Normal [facility] HEAD W/O CONTRASTon 09-24-19 18 HEAD W/O CONTRAST PROCEDURE: CT HEAD W/O CONTRAST - 89132 CLINICAL: SLURRED SPEECH, INTERMITTENT Special Instructions: = NA TECHNIQUE: Multiple axial CT images of the head were performed without contrast. Coronal and sagittal images were generated from the axial data set. COMPARISON: None FINDINGS: No evidence of acute intracranial hemorrhage or infarction identified. No mass, mass effect, or midline shift identified. The ventricles are within normal limits for patient age. No acute osseous abnormality identified. Moderate - severe sinus disease. IMPRESSION: No acute intracranial abnormality identified. PQRS: PQRS Measure #436 - Radiation Consideration for Adult CT: Utilization of Dose Lowering Techniques Individualized dose optimization techniques were utilized for the performance of the above-mentioned procedure. Dose optimization techniques employed during this evaluation include: automated exposure control, patient adjusted mA and/or kV, and iterative reconstruction techniques. Electronically signed by: Kelby Donis M.D. Date/time: 09-23-2017, 01:10 PM Final Report Normal [facility] Hemoglobin A1con 09-23-2017 Hemoglobin A1c/Hemoglobin.total mass fraction (Bld) 8.9 % High 4.2-6.3 [facility] Comment on above: Performed By: #### G LY #### [facility] Laboratory Services Dr. Jl Jensen MD [address] [place] [address] [phone] Lipid Panelon 09-23-2017 Cholesterol in HDL mass conc 42 mg/dL Normal 40-60 [facility] Comment on above: Performed By: #### L P #### [facility] Laboratory Services Dr. Jl Jensen MD [address] [place] [address] [phone] Cholesterol in LDL mass conc 69 mg/dL Normal 0-130 [facility] Comment on above: Performed By: #### L P #### [facility] Laboratory Services Dr. Jl Jensen MD [address] [place] [address] 96866 Cholesterol mass conc 186 mg/dL Normal 120-200 [facility] Comment on above: Performed By: #### L P #### [facility] Services Dr. Jl Jensen MD [address] [place] [address] 23408 Triglyceride mass conc 373 mg/dL High 30-200 [facility] Comment on above: Performed By: #### L P #### [facility] Services Dr. Jl Jensen MD [address] [place] [address] 88565 MRI/MRA HEAD NECK VASCULAR - 06157 - 26361 - [id number] 09-23-2017 MRI/MRA HEAD NECK VASCULAR - 15597 - 91816 - 62550 PROCEDURE: MRI/MRA HEAD NECK VASCULAR - 59132 - 22037 - 00763 CLINICAL: TIA TECHNIQUE: Multiplanar multisequence imaging of the brain was performed with and without contrast. 18 ml of Multihance was administered intravenously without evidence of immediate adverse reaction. Additionally, MRA imaging of the head neck was also performed. COMPARISON: CT head dated 09/23/2017 FINDINGS: No evidence of acute intracranial hemorrhage or infarction identified. No mass, mass effect, or midline shift identified. Minimal white matter disease, which is nonspecific but likely represents the sequela of chronic small vessel ischemic disease. The ventricles are within normal limits for patient age. No other parenchymal signal abnormality identified. No extra-axial fluid collection identified. No areas of restricted diffusion or pathological enhancement identified. MRA imaging of the head and neck does not demonstrate evidence of hemodynamically significant stenosis, vascular occlusion, or aneurysm formation. 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 IMPRESSION: No acute intracranial abnormality identified. Minimal white matter disease, which is nonspecific but likely represents the sequela of chronic small vessel ischemic disease. Unremarkable MRA of the head and neck. Electronically signed by: Kelby Donis M.D. Date/time: 09-23-2017, 05:21 PM Final Report Normal [facility] Manual Differentialon 2017 Anisocytosis Ql (Bld) Present Abnormal [facility] Comment on above: Performed By: #### M DF #### [facility] Laboratory Services Dr. Jl Jensen MD [address] [place] [address] [phone] ([phone]) Atypical Lymphs CANCEL Normal 0-2 [facility] Comment on above: Performed By: #### M DF #### [facility] Laboratory Services Dr. Jl Jensen MD [address] [place] [address] [phone] (30 Bands CANCEL Normal 0-10 [facility] Comment on above: Performed By: #### M DF #### [facility] Laboratory Services Dr. Jl Jensen MD [address] [place] [address] [phone] (61 Blast CANCEL Normal <1 [facility] Comment on above: Result Comment: Plea se note new reference range. Performed By: #### M DF #### [facility] Laboratory Services Dr. Jl Jensen MD [address] [place] [address] 54852 Giant Thrombocyte Present Abnormal [facility] Comment on above: Performed By: #### M DF #### [facility] Laboratory Services Dr. Jl Jensen MD [address] [place] [address] 39000 Metamyelocytes CANCEL Normal 0-10 [facility] Comment on above: Performed By: #### M DF #### [facility] Laboratory Services Dr. Jl Jensen MD [address] [place] [address] 71633 Myelocytes CANCEL Normal 0-5 [facility] Comment on above: Performed By: #### M DF #### [facility] Laboratory Services Dr. Jl Jensen MD [address] [place] [address] 56964 Protein mass conc CANCEL Normal <1 [facility] Comment on above: Performed By: #### M DF #### [facility] Laboratory Services Dr. Jl Jensen MD [address] [place] [address] [phone] ([phone] Note for differential see below Normal [facility] Comment on above: Result Comment: See CBC results for additional differential parameters. Performed By: #### M DF #### [facility] Laboratory Services Dr. Jl Jensen MD [address] [place] [address] [phone] (66 Troponin Ion 09-23-2017 Troponin I.cardiac mass conc ng/mL Normal 0.000-0.04 4 [facility] Comment on above: Result Comment: Trop onin-I Reference Range: <0.045 Negative, repeat testing in 4-6 hours if clinically indicated. =>0.045 Indicative of myocardial injury. Erroneous results may be obtained with patients taking high dose biotin supplements. Performed By: #### T RO #### [facility] Laboratory Services Dr. Jl Jensen MD [address] [place] [address] [phone] (40 B-Type Natriuretic Peptideon 08-18-2017 Natriuretic peptide B mass conc (Bld) 36 pg/mL Normal Less than 100 [facility] Comment on above: Performed By: #### B [employer] REPRESENTATIVE #### [facility] [address] [place] [address] Basic Metabolic Panelon 08-08 Calcium mass conc 9.8 mg/dL Normal 8.6-10.3 [facility] Comment on above: Performed By: #### B MP, CK, TROP #### [facility] [address] [place] [address] 58183 Chloride molar conc 99 mmol/L Normal 98-107 [facility] Comment on above: Performed By: #### B MP, CK, TROP #### [facility] [address] [place] [address] 05028 CO2 molar conc 26 mmol/L Normal 23-29 [facility] Comment on above: Performed By: #### B MP, CK, TROP #### [facility] [address] [place] [address] 45760 Creatinine mass conc 0.92 mg/dL Normal 0.70-1.30 [facility] Comment on above: Performed By: #### B MP, CK, TROP #### [facility] [address] [place] [address] 96781 eGFR For Americans > 60 Normal > 60 [facility] Comment on above: Result Comment: eGFR = Estimated Glomerular Filtration Rate reported as mL/min/1.73 square meters Chronic Kidney Disease: < 60; Kidney failure: < 15 Performed By: #### B MP, CK, TROP #### [facility] [address] [place] [address] 74288 eGFR For Non- Americans > 60 Normal > 60 [facility] Comment on above: Performed By: #### B MP, CK, TROP #### [facility] [address] [place] [address] 47992 Glucose mass conc 202 mg/dL High 70-105 [facility] Comment on above: Performed By: #### B MP, CK, TROP #### [facility] [address] [place] [address] 59591 Osmolality,Calculated 282 Normal 280-300 [facility] Comment on above: Performed By: #### B MP, CK, TROP #### [facility] [address] [place] [address] 05273 Potassium molar conc 4.1 mmol/L Normal 3.5-5.1 [facility] Comment on above: Performed By: #### B MP, CK, TROP #### [facility] [address] [place] [address] 18539 Sodium molar conc 133 mmol/L Low 136-145 [facility] Comment on above: Performed By: #### B MP, CK, TROP #### [facility] [address] [place] [address] 72466 Urea nitrogen mass conc 13 mg/dL Normal 6-20 [facility] Comment on above: Performed By: #### B MP, CK, TROP #### [facility] [address] [place] [address] 04141 Urea nitrogen/Creatinine mass ratio 14 mg/mg Normal 6-26 [facility] Comment on above: Performed By: #### B MP, CK, TROP #### [facility] [address] [place] [address] 66334 [id number] 08-18-2017 [id number] [place] [address] [place] [address] XRay Report Signed PRELIMINARY DRAFT REPORT UNTIL ELECTRONICALLY SIGNED 0 PATIENT: Temo Wilkes MR#: [id number] : 1960 AGE/SEX: 56 / M ADMITTED: 08/18/17 OUTSIDE LOCN: LOCATION: [facility] ATTENDIN ORDER PHYSICIAN: David Manuel BIRAD: DATE OF SERVICE: 08/18/17 FOLLOW UP: ACCESSION NUMBERS(S): [id number] PROCEDURE(S): XR chest 1V portable REASON FOR EXAM: Elevated white count, shortness of breath, cough 0 cc: David Manuel; Macario Tyler; EXAMINATION: SINGLE VIEW OF THE CHEST 08/18/2017 10:32 am COMPARISON: December 01, 2016 HISTORY: ORDERING SYSTEM PROVIDED HISTORY: Elevated white count, shortness of breath, cough Leukocytosis. Cough and shortness of breath. Initial encounter. FINDINGS: The cardiomediastinal silhouette is within normal range. Lungs are clear. There is no focal pulmonary consolidation, pleural effusion, pneumothorax, or evidence of airspace pulmonary edema. There are surgical clips in the left axilla. XR/XR chest 1V portable IMPRESSION: 1. No acute radiographic abnormality in the chest. D/ / Ric Lino MD / Ric Lino MD Interpreting Provider: Ric Lino MD Normal [facility] Complete Blood Counton 08-18 Basophils #/vol (Bld) 0.1 K/mcL Normal 0.0-0.2 [facility] Comment on above: Performed By: #### C BC #### [facility] [address] [place] [address] 11078 Basophils/100 WBC (Bld) 0.7 % Normal [facility] Comment on above: Performed By: #### C BC #### [facility] [address], [place] [phone] Eosinophils #/vol (Bld) 0.8 K/mcL High 0.0-0.6 [facility] Comment on above: Performed By: #### C BC #### [facility] [address] [place] [address] [phone] Eosinophils/100 WBC (Bld) 4.1 % Normal [facility] Comment on above: Performed By: #### C BC #### [facility] [address] [place] [address] 35682 Erythrocyte distribution width Ratio (RBC) 12.6 % Normal 11.5-14.5 [facility] Comment on above: Performed By: #### C BC #### [facility] [address] [place] [address] 83497 Hematocrit Volume Fraction (Bld) 40.2 % Normal 37.5-50.1 [facility] Comment on above: Performed By: #### C BC #### [facility] [address] [place] [address] 76143 Hemoglobin mass conc (Bld) 13.8 g/dL Normal 12.9-16.9 [facility] Comment on above: Performed By: #### C BC #### [facility] [address] [place] [address] 24080 Immature granulocytes/100 WBC (Bld) 0.3 % Normal 0-4 [facility] Comment on above: Performed By: #### C BC #### [facility] [address] [place] [address] 34694 Lymphocytes #/vol (Bld) 4.1 K/mcL Normal 0.6-4.6 [facility] Comment on above: Performed By: #### C BC #### [facility] [address] [place] [address] 18375 Lymphocytes/100 WBC (Bld) 20.4 % Normal [facility] Comment on above: Performed By: #### C BC #### [facility] [address] [place] [address] 20381 MCH Entitic mass (RBC) 31.2 pg Normal 28.0-33.3 [facility] Comment on above: Performed By: #### C BC #### [facility] [address] [place] [address] 92963 MCH Entitic mass (RBC) 34.3 g/dL Normal 31.6-35.5 [facility] Comment on above: Performed By: #### C BC #### [facility] [address] [place] [address] 51103 MCV Entitic volume (RBC) 91.0 fL Normal 83.0-100.0 [facility] Comment on above: Performed By: #### C BC #### [facility] [address] [place] [address] 85406 Monocytes #/vol (Bld) 2.2 K/mcL High 0.0-1.3 [facility] Comment on above: Performed By: #### C BC #### [facility] [address] [place] [address] 22184 Monocytes/100 WBC (Bld) 10.8 % Normal [facility] Comment on above: Performed By: #### C BC #### [facility] [address] [place] [address] 99620 Neutrophils #/vol (Bld) 12.7 K/mcL High 1.6-8.9 [facility] Comment on above: Performed By: #### C BC #### [facility] [address] [place] [address] 33747 Platelet mean volume Entitic volume (Bld) 10.4 fL Normal 9.4-12.4 [facility] Comment on above: Performed By: #### C BC #### [facility] [address] [place] [address] 76503 Platelets #/vol (Bld) 514 K/mcL High 140-400 [facility] Comment on above: Performed By: #### C BC #### [facility] [address] [place] [address] 00646 RBC #/vol (Bld) 4.42 M/mcL Normal 4.19-5.50 [facility] Comment on above: Performed By: #### C BC #### [facility] [address] [place] [address] 97997 Segmented neutrophils/100 WBC (Bld) 63.7 % Normal [facility] Comment on above: Performed By: #### C BC #### [facility] [address] [place] [address] 61566 WBC #/vol (Bld) 19.9 K/mcL High 4.3-11.1 [facility] Comment on above: Performed By: #### C BC #### [facility] [address] [place] [address] 25726 Creatine Kinaseon 08-18-2017 CK enzyme act/vol 74 Units/L Normal 30-223 [facility] Comment on above: Performed By: #### B MP, CK, TROP #### [facility] [address] [place] [address] 74533 Echocardiogram Reporton 08-08 Echocardiogram Report [address] [address] Electrocardiograph Report Signed PRELIMINARY DRAFT REPORT UNTIL ELECTRONICALLY SIGNED 0 PATIENT: Temo Wilkes MR#: [id number] : 1960 AGE/SEX: 56 / M ADMITTED: 08/18/17 OUTSIDE LOCN: LOCATION: [facility] ATTENDIN READING PHYSICIAN: Pelon Zayas TECHNOLOGIST: Marlene Hernandez ORDER PHYSICIAN: David Manuel PRIMARY PHYSICIAN: Macario Tyler DATE OF SERVICE: 08/18/17 ACCESSION NUMBERS(S): [id number] HT: 175.26 WT: 200 PROCEDURE(S): ECG 12 lead ECG cc: ; [address] [address] Test Date: 2017-08-18 Pat Name: Temo Wilkes Department: 9201 Room: Gender: M Roving Hand: [id number] : 1960 Requested By: David Manuel Order Number: [id number] Reading MD: Pelon Zayas Measurements Intervals [place] Rate: 81 P: 51 UT: 166 QRS: -1 QRSD: 110 T: 28 QT: 377 QTc: 414 Interpretive Statements SINUS RHYTHM MODERATE VOLTAGE CRITERIA FOR LVH, CONSIDER NORMAL VARIANT Electronically Signed On 08-18-2017 15:33:58 EDT by Pelon Zayas Normal [facility] Emergency Documentationon Emergency Documentation [facility] [address] [place] [address] Emergency Department Note Signed PRELIMINARY DRAFT REPORT UNTIL ELECTRONICALLY SIGNED 0 PATIENT: Temo Wilkes MR#: [id number] : 1960 AGE/SEX: 56 / M ADMITTED: 08/18/17 OUTSIDE LOCN: LOCATION: [facility] ATTENDING: cc: Macario Tyler; Disposition Clinical Impression: Weakness generalized Disposition: Home, Self-Care Condition: Good Instructions: Chest Pain (ED), Weakness (ED) Reasons to Return/Additional Instructions: Increased fluid intake to maintain good hydration. Blood pressure screening: When you had your blood pressure taken, if the top number was greater than 120 or the bottom number was greater than 80, I recommend that you call your primary care provider or a physician of your choice this week to arrange follow-up for further evaluation of your blood pressure. Elevated blood pressures which goes untreated can lead to stroke, heart attack , kidney failure and other life-threatening diseases. If you have an EKG and/or x-ray reading made in the emergency department, it will be reviewed by a registered dietetic technician and/or radiologist. If this review changes your diagnosis or treatment, you will be contacted at the phone number you provided. If you were prescribed for outpatient testing: Please call to schedule an appointment for your test. If you have been prescribed an antibiotic: Take it as instructed until it is all finished. If you cannot tolerate that medication for some reason, call your doctor for a replacement. If you had a specimen collected for culture, a culture report takes 48-72 hours to generate. You will be contacted if a change in treatment is needed. Return if your condition worsens or if you have severe pain, fever, vomiting or difficulty breathing. If you have received or been prescribed a medication that may cause drowsiness (tramadol, Phenergan , trazodone, diazepam, lorazepam, hydroxyzine, Xanax, hydrocodone, oxycodone, codeine, or any others ) do not drive, drink alcohol, or operate machinery that requires you to be alert for at least 8 hours after taking that medication. Smoking is associated with many medical risks and, if you smoke, we recommend that you contact your primary care provider to discuss smoking cessation options. If you need to find a physician: Go to [email or web address] Or call: [facility], [facility], [facility], Referrals: Macario Tyler DO [Primary Care Provider] - Eladio Saavedra MD [Non-Partnered Physician] - (Appointment on August 27 as scheduled.) Forms: ED Satisfaction Letter, Work/School Release General Adult HPI - General Chief complaint: ED General Medical Stated complaint: body aches Time Seen by Provider: 08/18/17 09:17 Source: patient Mode of arrival: private vehicle Limitations: no limitations Nursing Notes Reviewed: Yes Vital Signs Reviewed: Yes - History of Present Illness HPI Narrative: Patient presents with a history of feeling generalized weakness and diffuse body aches over the last 24 hours. States this started yesterday and became worse the evening yesterday. 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 He developed some nausea without vomiting. States he did feel dizzy last night. He denied any history of ill exposures or recent change in medicines. He states he has felt like this before these had the flu. He was getting sweaty with this denied any chest pain or palpitations. Denied abdominal pain, cramping or diarrhea. Denies cough. He has had a little bit of shortness of breath. He does report he had some chest pain and tightness about a week ago that went to his shoulders and back. States it occurred at rest and lasted less than 20 minutes. He did not have other associated symptoms and he has had no similar pain since. He called his registered dietetic technician, Dr. Zayas, and has no appointment for August 27 for further evaluation. He relates he has a strong family history of heart disease including that his mother has had 14 stents. He has a history himself of diabetes, hyperlipidemia, hypertension and some valvular heart disease. Denies history of coronary artery disease, obesity nor DVT or PE. Onset (ago): day(s) (1) Pain Severity: mild Pain Scale: 2 Quality: aching Consistency: constant Improves with: nothing Worsens with: nothing Associated symptoms: Reports: diaphoresis, malaise, nausea/vomiting, shortness of breath, weakness. Denies: confusion, chest pain, cough, fever/chills, headaches, loss of appetite, rash, seizure, syncope Treatments Prior to Arrival: none - Related Data Home Medications Medication Instructions Recorded Confirmed Fenofibrate [Lofibra] 160 mg PO DAILY 01/17/15 08/18/17 Metformin [Glucophage] 1,000 mg PO BIDWM 01/17/15 08/18/17 Glimepiride [Amaryl] 4 mg PO DAILY 12/01/16 08/18/17 Linagliptin [Tradjenta] 5 mg PO DAILY 12/01/16 08/18/17 Losartan Potassium [Cozaar] 100 mg PO DAILY 12/01/16 08/18/17 amLODIPine [Norvasc] 5 mg PO DAILY 12/01/16 08/18/17 Allergies Allergy/AdvReac Type Severity Reaction Status Date / Time Pneumococcal Vaccine Allergy Hives Verified 11/07/14 08:50 All systems ED: reviewed and negative except as stated. Past Medical History - Past Medical History Attestation: Yes The following information was validated with the patient. Source: patient, nursing notes reviewed Medical history: Reports: diabetes, hyperlipidemia, hypertension, seizures, valvular heart disease, other. 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 Absent: scleral icterus, conjunctival injection - ENT ENT exam: normal exam, normal oropharynx, mucous membranes moist - Neck Neck exam: Present: normal inspection, full ROM, trachea midline - Chest Chest inspection: Present: normal inspection, symmetric chest wall rise. Absent: tenderness - Respiratory Respiratory exam: Present: normal lung sounds bilaterally. Absent: respiratory distress, wheezes, prolonged expiratory phase - Cardiovascular Cardiovascular exam: Present: regular rate, normal rhythm, normal heart sounds. Absent: JVD - Abdominal Exam Abdominal exam: Present: soft, Non-Tender, normal bowel sounds. Absent: tenderness, distention, guarding, rebound, rigidity, Choi's sign, tenderness at McBurney's Point, pulsatile mass - Extremities Exam Extremities exam: Present: normal inspection, full ROM, normal capillary refill. Absent: tenderness , pedal edema, calf tenderness - Expanded Lower Extremity Exam Neurovascular/Tendon exam: Present: normal capillary refill. Absent: motor deficit, sensory deficit , tendon deficit Gait: observed and normal - Back Exam Back exam: Present: normal inspection, full ROM. Absent: tenderness - Neurological Exam Neurological exam: Present: alert, oriented X3, normal gait - Psychiatric Psychiatric exam: Present: normal affect, normal mood. Absent: agitated, anxious - Skin Skin exam: Present: warm, dry, intact, normal color. Absent: diaphoresis, pallor Course Course Narrative: 1000: Given the patient's elevated white count with some mild dyspnea and an occasional cough, a chest x-ray has been ordered. 1030: With return of all lab and imaging, care has been discussed with the patient. He has been given a copy of his lab work to facilitate his follow-up with his registered dietetic technician and family doctor. He is recommended to increase fluid intake and continue with acetaminophen or ibuprofen as needed for his body aches. He is discharged in stable condition with a note off work for today and tomorrow. The patient has been made aware of their current blood pressure. They have been advised that a pressure greater than 120/80 should be rechecked by their family doctor and that untreated hypertension can lead to multiple future medical problems. He is encouraged to contact his family doctor for close recheck if his symptoms are persisting or worsening. Vital Signs Temperature 98.1 F 08/18/17 09:09 Pulse Rate 84 08/18/17 09:09 Respiratory Rate 18 08/18/17 09:09 Blood Pressure 180/93 08/18/17 09:09 O2 Sat by Pulse Oximetry 94 08/18/17 09:09 Temperature 98.1 F 08/18/17 10:20 Pulse Rate 84 08/18/17 09:09 Respiratory Rate 20 08/18/17 10:20 Blood Pressure 159/89 08/18/17 10:20 O2 Sat by Pulse Oximetry 94 08/18/17 09:09 Oxygen Delivery Oxygen Delivery Room Air Medical Decision Making - Lab Data Lab results reviewed: Yes I reviewed the patient's lab results. Lab results narrative: Influenza A and influenza B are negative. Result diagrams: 08/18/17 09:41 08/18/17 09:41 Lab Results 08/18/17 08/18/17 08/18/17 Range/Units 09:41 09:41 09:41 WBC 19.9 H (4.3-11.1) K/mcL RBC 4.42 (4.19-5.50) M/mcL Hgb 13.8 (12.9-16.9) g/dL Hct 40.2 (37.5-50.1) % MCV 91.0 (83.0-100.0) fL MCH 31.2 (28.0-33.3) pg MCHC 34.3 (31.6-35.5) g/dL RDW 12.6 (11.5-14.5) % Plt Count 514 H (140-400) K/mcL MPV 10.4 (9.4-12.4) fL Immature Gran % 0.3 (0-4) % Seg Neutrophils % 63.7 % Lymphocytes % 20.4 % Monocytes % 10.8 % Eosinophils % 4.1 % Basophils % 0.7 % Neutrophils # 12.7 H (1.6-8.9) K/mcL Lymphocytes # 4.1 (0.6-4.6) K/mcL Monocytes # 2.2 H (0.0-1.3) K/mcL Eosinophils # 0.8 H (0.0-0.6) K/mcL Basophils # 0.1 (0.0-0.2) K/mcL Sodium 133 L (136-145) mEq/L Potassium 4.1 (3.5-5.1) mEq/L Chloride 99 (98-107) mEq/L Carbon Dioxide 26 (23-29) mEq/L BUN 13 (6-20) mg/dL Creatinine 0.92 (0.70-1.30) mg/dL Est GFR ( Amer) > 60 (> 60) Est GFR (Non-Af Amer) > 60 (> 60) BUN/Creatinine Ratio 14 (6-26) Glucose 202 H (70-105) mg/dL Calculated Osmolality 282 (280-300) Calcium 9.8 (8.6-10.3) mg/dL Creatine Kinase 74 (30-223) Units/L Troponin I < 0.03 (< 0.04) ng/mL B-Natriuretic Peptide 36 (Less than 100) pg/mL - Radiology Data Radiology results reviewed: Yes I reviewed the patient's radiology results. Single view chest x-ray is performed. This does not demonstrate evidence for infiltrate, effusion, pneumothorax, foreign body or heart failure. The cardiac silhouette is normal. I do not see abnormality to the osseous structures of the chest. This is on my interpretation. Impressions Chest X-Ray 08/18/17 09:57 IMPRESSION: 1. No acute radiographic abnormality in the chest. D/ / Ric Lino MD / Ric Lino MD Interpreting Provider: Ric Lino MD - EKG Data EKG #1 EKG attestation: Yes I reviewed and interpreted this EKG. EKG shows normal: sinus rhythm, axis, intervals, QRS complexes, ST-T waves Rate: normal (81) Voltage: c/w LVH Interpretation: no acute changes, nonspecific ST-T wave changes 2 Documented By: David Manuel MD Signed By: 08/18/17 1349 2 2 2 DD/ 0917 Initialized By: [id number] Normal [facility] Influenza A/B Antigenon 08-08 Influenza A/B Antigen Influenza A/B Anti gen: Influenza A Antigen Negative Influenza B Antigen Negative Normal [facility] Comment on above: Performed By: #### F DANN #### [facility] [address] [place] [address] Troponin Ion 08-18-2017 Troponin I.cardiac mass conc ng/mL Normal < 0.04 [facility] Comment on above: Performed By: #### B MP, CK, TROP #### [facility] [address] [place] [id number] Progress Noteson 07-14-2017 Progress Notes Encounter Department : [facility] PRIMARY CAREProgress Notes by Destiney River at 07/14/2017 8:54 AMAuthor: Destiney Bocanegraervice: (none)Author Type: Clerical StaffFiled: 07/14/2017 8:55 AMEncounter Date: 07/14/2017Status: SignedEditor: Destiney River (Clerical Staff)Scan Consult Letter Normal [facility] No Panel Information SARS-CoV-2 & FLU Antigen (Rapid) [facility] Work Phone: Vital Signs Date Time Vital Sign Value Performing Clinician Facility 09-02-2024 14:54-0400 Diastolic blood pressure 80 mm[Hg] Angeles Castro APRN.CHEMICAL EQUIPMENT CONTROLLER Work Phone: [facility] 09-02-2024 14:54-0400 Heart rate 80 /min Angeles Castro APRN.CHEMICAL EQUIPMENT CONTROLLER Work Phone: [facility] 09-02-2024 14:54-0400 Systolic blood pressure 149 mm[Hg] Angeles Castro APRN.CHEMICAL EQUIPMENT CONTROLLER Work Phone: [facility] 09-02-2024 13:41-0400 Body mass index (BMI) [Ratio] 25.78 kg/m2 Angeles Elza CNC SPECIALIST.CHEMICAL EQUIPMENT CONTROLLER Work Phone: [facility] 09-02-2024 13:41-0400 Body weight 79.2 kg Angeles Castro APRN.CHEMICAL EQUIPMENT CONTROLLER Work Phone: [facility] 09-02-2024 13:41-0400 SaO2% (BldA) [Mass fraction] 98 % Angeles Castro APRN.CHEMICAL EQUIPMENT CONTROLLER Work Phone: [facility] 06-12-2023 08:20-0400 Body temperature 97 [degF] [employer] REPRESENTATIVE[employer] Gonzales Mosquera VSC Work Phone: [phone] [place] [address] 06-12-2023 08:20-0400 Diastolic blood pressure 68 mm[Hg] [employer] REPRESENTATIVE-[employer] Gonzales Mosquera VSC Work Phone: 3(179)721-819063 [place] [address] 06-12-2023 08:20-0400 Heart rate 70 /min [employer] REPRESENTATIVE-[employer] Gonzales Mosquera VSC Work Phone: 9(713)[phone] [place] [address] 06-12-2023 08:20-0400 Respiratory rate 16 /min [employer] REPRESENTATIVE-[employer] Gonzales Mosquera VSC Work Phone: 7([phone])[phone] [place] [address] 06-12-2023 08:20-0400 SaO2% (BldA) [Mass fraction] 99 % [employer] REPRESENTATIVE-[employer] Gonzales Mosquera VSC Work Phone: 2(469)836-697163 [place] [address] 06-12-2023 08:20-0400 Systolic blood pressure 132 mm[Hg] [employer] REPRESENTATIVE-[employer] Gonzales Mosquera VSC Work Phone: 6(456)[phone] [place] [address] 06-12-2023 07:01-0400 Body height 175.26 cm [employer] REPRESENTATIVE-[employer] Gonzales Mosquera VSC Work Phone: 5([phone])[phone] [place] [address] 06-12-2023 07:01-0400 Body mass index (BMI) [Ratio] 27.3 kg/m2 [employer] REPRESENTATIVE-[employer] Gonzales Mosquera VSC Work Phone: 7([phone])442-872263 [place] [address] 06-12-2023 07:01-0400 Body weight 84 kg [employer] REPRESENTATIVE-[employer] Gonzales Mosquera VSC Work Phone: 7(125)[phone] [place] [address] 05-26-2023 14:33-0400 Body mass index (BMI) [Ratio] 27.3 kg/m2 [employer] REPRESENTATIVE-[employer] Gonzales Mosquera VSC Work Phone: 4(356)[phone] [place] [address] 05-26-2023 14:33-0400 Body weight 83.91 kg [employer] REPRESENTATIVE-[employer] Gonzales Mosquera VSC Work Phone: 8([phone] [place] [address] 11-29-2022 21:57-0400 Diastolic blood pressure 68 mm[Hg] Dr. Iftikhar Carlos Work Phone: [facility] 11-29-2022 21:57-0400 Heart rate 86 /min Dr. Iftikhar Carlos Work Phone: [facility] 11-29-2022 21:57-0400 Respiratory rate 16 /min Dr. Iftikhar Carlos Work Phone: [facility] 11-29-2022 21:57-0400 SaO2% (BldA) [Mass fraction] 98 % Dr. Iftikhar Carlos Work Phone: [facility] 11-29-2022 21:57-0400 Systolic blood pressure 148 mm[Hg] Dr. Iftikhar Carlos Work Phone: [facility] 11-29-2022 18:19-0400 Body height 175.[address] Iftikhar Carlos Work Phone: [facility] 11-29-2022 18:19-0400 Body mass index (BMI) [Ratio] 29.2 kg/m2 Dr. Iftikhar Carlos Work Phone: [facility] 11-29-2022 18:19-0400 Body temperature 96.8 [degF] Dr. Iftikhar Carlos Work Phone: [facility] 11-29-2022 18:19-0400 Body weight 89.[address] Iftikhar Carlos Work Phone: [facility] 10-23-2022 13:23-0400 Heart rate 66 /min Dr. Iftikhar Carlos Work Phone: [facility] 10-23-2022 13:23-0400 Respiratory rate 20 /min Dr. Iftikhar Carlos Work Phone: [facility] 10-23-2022 13:23-0400 SaO2% (BldA) [Mass fraction] 97 % Dr. Iftikhar Carlos Work Phone: [facility] 10-23-2022 10:45-0400 Body temperature 98 [degF] Dr. Iftikhar Carlos Work Phone: [facility] 10-23-2022 10:45-0400 Diastolic blood pressure 72 mm[Hg] Dr. Iftikhar Carlos Work Phone: [facility] 10-23-2022 10:45-0400 Systolic blood pressure 175 mm[Hg] Dr. Iftikhar Carlos Work Phone: [facility] 09-16-2022 15:41-0400 Body height 180.[address] Iftikhar Carlos Work Phone: [facility] 09-16-2022 15:12-0400 Body mass index (BMI) [Ratio] 29.8 kg/m2 Dr. Iftikhar Carlos Work Phone: [facility] 09-16-2022 15:12-0400 Body temperature 95 [degF] Dr. Iftikhar Carlos Work Phone: [facility] 09-16-2022 15:12-0400 Body weight 91.[address] Iftikhar Carlos Work Phone: [facility] 09-16-2022 15:12-0400 Diastolic blood pressure 72 mm[Hg] Dr. Iftikhar Carlos Work Phone: [facility] 09-16-2022 15:12-0400 Heart rate 64 /min Dr. Iftikhar Carlos Work Phone: [facility] 09-16-2022 15:12-0400 Respiratory rate 18 /min Dr. Iftikhar Carlos Work Phone: [facility] 09-16-2022 15:12-0400 SaO2% (BldA) [Mass fraction] 97 % Dr. Iftikhar Carlos Work Phone: [facility] 09-16-2022 15:12-0400 Systolic blood pressure 140 mm[Hg] Dr. Iftikhar Carlos Work Phone: [facility] 07-09-2022 14:34-0400 Body mass index (BMI) [Ratio] 28.3 kg/m2 Dr. Iftikhar Carlos Work Phone: [facility] 07-09-2022 14:34-0400 Body temperature 97.8 [degF] Dr. Iftikhar Carlos Work Phone: [facility] 07-09-2022 14:34-0400 Body weight 92.[address] Iftikhar Carlos Work Phone: [facility] 07-09-2022 14:34-0400 Diastolic blood pressure 68 mm[Hg] Dr. Iftikhar Carlos Work Phone: [facility] 07-09-2022 14:34-0400 Heart rate 74 /min Dr. Iftikhar Carlos Work Phone: [facility] 07-09-2022 14:34-0400 Respiratory rate 17 /min Dr. Iftikhar Carlos Work Phone: [facility] 07-09-2022 14:34-0400 SaO2% (BldA) [Mass fraction] 98 % Dr. Iftikhar Carlos Work Phone: [facility] 07-09-2022 14:34-0400 Systolic blood pressure 120 mm[Hg] Dr. Iftikhar Carlos Work Phone: [facility] 07-02-2022 11:30-0400 Body temperature 97.8 [degF] Dr. Iftikhar Carlos Work Phone: [facility] 07-02-2022 11:30-0400 Diastolic blood pressure 86 mm[Hg] Dr. Iftikhar Carlos Work Phone: [facility] 07-02-2022 11:30-0400 Heart rate 78 /min Dr. Iftikhar Carlos Work Phone: [facility] 07-02-2022 11:30-0400 Respiratory rate 16 /min Dr. Iftikhar Carlos Work Phone: [facility] 07-02-2022 11:30-0400 SaO2% (BldA) [Mass fraction] 98 % Dr. Iftikhar Carlos Work Phone: [facility] 07-02-2022 11:30-0400 Systolic blood pressure 137 mm[Hg] Dr. Iftikhar Carlos Work Phone: [facility] 07-02-2022 10:14-0400 Body height 180.[address] Iftikhar Carlos Work Phone: [facility] 07-02-2022 10:14-0400 Body mass index (BMI) [Ratio] 28.4 kg/m2 Dr. Iftikhar Carlos Work Phone: [facility] 07-02-2022 10:14-0400 Body weight 92.[address] Iftikhar Carlos Work Phone: [facility] 06-17-2022 09:22-0400 Body height 175.3 cm Randall Rodríguez MD Work Phone: [facility] 06-17-2022 09:22-0400 Body temperature 97.59 [degF] Randall Rodríguez MD Work Phone: [facility] 06-17-2022 09:22-0400 Body weight 90.31 kg Randall Rodríguez MD Work Phone: [facility] 06-17-2022 09:22-0400 Diastolic blood pressure 65 mm[Hg] Randall Rodríguez MD Work Phone: [facility] 06-17-2022 09:22-0400 Heart rate 63 /min Randall Rodríguez MD Work Phone: [facility] 06-17-2022 09:22-0400 SaO2% (BldA) [Mass fraction] 97 % Randall Rodríguez MD Work Phone: [facility] 06-17-2022 09:22-0400 Systolic blood pressure 172 mm[Hg] Randall Rodríguez MD Work Phone: [facility] 06-12-2022 09:29-0400 Body mass index (BMI) [Ratio] 29.8 kg/m2 Dr. Iftikhar Carlos Work Phone: [facility] 06-12-2022 09:29-0400 Body temperature 97.5 [degF] Dr. Iftikhar Carlos Work Phone: [facility] 06-12-2022 09:29-0400 Body weight 91.[address] Iftikhar Carlos Work Phone: [facility] 06-12-2022 09:29-0400 Diastolic blood pressure 78 mm[Hg] Dr. Iftikhar Carlos Work Phone: [facility] 06-12-2022 09:29-0400 Heart rate 69 /min Dr. Iftikhar Carlos Work Phone: [facility] 06-12-2022 09:29-0400 Respiratory rate 18 /min Dr. Iftikhar Carlos Work Phone: [facility] 06-12-2022 09:29-0400 SaO2% (BldA) [Mass fraction] 97 % Dr. Iftikhar Carlos Work Phone: [facility] 06-12-2022 09:29-0400 Systolic blood pressure 150 mm[Hg] Dr. Iftikhar Carlos Work Phone: [facility] 06-11-2022 13:23-0400 Body mass index (BMI) [Ratio] 29.5 kg/m2 Dr. Iftikhar Carlos Work Phone: [facility] 06-11-2022 13:23-0400 Body temperature 97.8 [degF] Dr. Iftikhar Carlos Work Phone: [facility] 06-11-2022 13:23-0400 Body weight 90.[address] Iftikhar Carlos Work Phone: [facility] 06-11-2022 13:23-0400 Diastolic blood pressure 70 mm[Hg] Dr. Iftikhar Carlos Work Phone: [facility] 06-11-2022 13:23-0400 Heart rate 95 /min Dr. Iftikhar Carlos Work Phone: [facility] 06-11-2022 13:23-0400 Respiratory rate 17 /min Dr. Iftikhar Carlos Work Phone: [facility] 06-11-2022 13:23-0400 SaO2% (BldA) [Mass fraction] 95 % Dr. Iftikhar Carlos Work Phone: [facility] 06-11-2022 13:23-0400 Systolic blood pressure 140 mm[Hg] Dr. Iftikhar Carlos Work Phone: [facility] 06-04-2022 14:24-0400 Body temperature 97.8 [degF] Dr. Iftikhar Carlos Work Phone: [facility] 06-04-2022 14:24-0400 Diastolic blood pressure 73 mm[Hg] Dr. Iftikhar Carlos Work Phone: [facility] 06-04-2022 14:24-0400 Heart rate 69 /min Dr. Iftikhar Carlos Work Phone: [facility] 06-04-2022 14:24-0400 Respiratory rate 17 /min Dr. Iftikhar Carlos Work Phone: [facility] 06-04-2022 14:24-0400 SaO2% (BldA) [Mass fraction] 95 % Dr. Iftikhar Carlos Work Phone: [facility] 06-04-2022 14:24-0400 Systolic blood pressure 130 mm[Hg] Dr. Iftikhar Carlos Work Phone: [facility] 06-02-2022 20:45-0400 Body mass index (BMI) [Ratio] 29.7 kg/m2 Dr. Iftikhar Carlos Work Phone: [facility] 06-02-2022 20:16-0400 Body height 175.[address] Iftikhar Carlos Work Phone: [facility] 06-02-2022 20:16-0400 Body weight 91.[address] Iftikhar Carlos Work Phone: [facility] 06-02-2022 18:55-0400 Body temperature 97.1 [degF] Dr. Iftikhar Carlos Work Phone: [facility] 06-02-2022 18:55-0400 Diastolic blood pressure 70 mm[Hg] Dr. Iftikhar Carlos Work Phone: [facility] 06-02-2022 18:55-0400 Heart rate 68 /min Dr. Iftikhar Carlos Work Phone: [facility] 06-02-2022 18:55-0400 Respiratory rate 16 /min Dr. Iftikhar Carlos Work Phone: [facility] 06-02-2022 18:55-0400 SaO2% (BldA) [Mass fraction] 98 % Dr. Iftikhar Carlos Work Phone: [facility] 06-02-2022 18:55-0400 Systolic blood pressure 139 mm[Hg] Dr. Iftikhar Carlos Work Phone: [facility] 06-02-2022 16:29-0400 Body height 175.[address] Iftikhar Carlos Work Phone: [facility] 06-02-2022 16:29-0400 Body mass index (BMI) [Ratio] 30.2 kg/m2 Dr. Iftikhar Carlos Work Phone: [facility] 06-02-2022 16:29-0400 Body weight 92.[address] Iftikhar Carlos Work Phone: [facility] 03-26-2022 09:29-0500 Body height 175.[address] Iftikhar Carlos Work Phone: [facility] 03-26-2022 09:29-0500 Body mass index (BMI) [Ratio] 29.7 kg/m2 Dr. Iftikhar Carlos Work Phone: [facility] 03-26-2022 09:29-0500 Body temperature 97.4 [degF] Dr. Iftikhar Carlos Work Phone: [facility] 03-26-2022 09:29-0500 Body weight 91.[address] Iftikhar Carlos Work Phone: [facility] 03-26-2022 09:29-0500 Diastolic blood pressure 70 mm[Hg] Dr. Iftikhar Carlos Work Phone: [facility] 03-26-2022 09:29-0500 Heart rate 88 /min Dr. Iftikhar Carlos Work Phone: [facility] 03-26-2022 09:29-0500 Respiratory rate 14 /min Dr. Iftikhar Carlos Work Phone: [facility] 03-26-2022 09:29-0500 SaO2% (BldA) [Mass fraction] 97 % Dr. Iftikhar Carlos Work Phone: [facility] 03-26-2022 09:29-0500 Systolic blood pressure 126 mm[Hg] Dr. Iftikhar Carlos Work Phone: [facility] 02-20-2022 16:45-0500 Body height 175.[address] Iftikhar Carlos Work Phone: [facility] Work Phone: 02-20-2022 16:45-0500 Body mass index (BMI) [Ratio] 29.2 kg/m2 Dr. Iftikhar Carlos Work Phone: [facility] 02-20-2022 16:45-0500 Body temperature 97.5 [degF] Dr. Iftikhar Carlos Work Phone: [facility] 02-20-2022 16:45-0500 Body weight 89.[address] Iftikhar Carlos Work Phone: [facility] 02-20-2022 16:45-0500 Diastolic blood pressure 84 mm[Hg] Dr. Iftikhar Carlos Work Phone: [facility] 02-20-2022 16:45-0500 Heart rate 68 /min Dr. Iftikhar Carlos Work Phone: [facility] 02-20-2022 16:45-0500 Respiratory rate 14 /min Dr. Iftikhar Carlos Work Phone: [facility] 02-20-2022 16:45-0500 SaO2% (BldA) [Mass fraction] 97 % Dr. Iftikhar Carlos Work Phone: [facility] 02-20-2022 16:45-0500 Systolic blood pressure 144 mm[Hg] Dr. Iftikhar Carlos Work Phone: [facility] 10-23-2021 13:16-0400 Body height 175.[address] Iftikhar Carlos Work Phone: [facility] Work Phone: 10-23-2021 13:16-0400 Body mass index (BMI) [Ratio] 28.5 kg/m2 Dr. Iftikhar Carlos Work Phone: [facility] Work Phone: 10-23-2021 13:16-0400 Body temperature 98.2 [degF] Dr. Iftikhar Carlos Work Phone: [facility] Work Phone: 10-23-2021 13:16-0400 Body weight 87.[address] Iftikhar Carlos Work Phone: [facility] Work Phone: 10-23-2021 13:16-0400 Diastolic blood pressure 74 mm[Hg] Dr. Iftikhar Carlos Work Phone: [facility] Work Phone: 10-23-2021 13:16-0400 Heart rate 88 /min Dr. Iftikhar Carlos Work Phone: [facility] Work Phone: 10-23-2021 13:16-0400 Respiratory rate 14 /min Dr. Iftikhar Carlos Work Phone: [facility] Work Phone: 10-23-2021 13:16-0400 SaO2% (BldA) [Mass fraction] 99 % Dr. Iftikhar Carlos Work Phone: [facility] Work Phone: 10-23-2021 13:16-0400 Systolic blood pressure 136 mm[Hg] Dr. Iftikhar Carlos Work Phone: [facility] Work Phone: 07-20-2021 13:14-0400 Body height 175.[address] Iftikhar Carlos Work Phone: [facility] Work Phone: 07-20-2021 13:14-0400 Body mass index (BMI) [Ratio] 29.3 kg/m2 Dr. Iftikhar Carlos Work Phone: [facility] Work Phone: 07-20-2021 13:14-0400 Body temperature 96.7 [degF] Dr. Iftikhar Carlos Work Phone: [facility] Work Phone: 07-20-2021 13:14-0400 Body weight 90.[address] Iftikhar Carlos Work Phone: [facility] Work Phone: 07-20-2021 13:14-0400 Diastolic blood pressure 100 mm[Hg] Dr. Iftikhar Carlos Work Phone: [facility] Work Phone: 07-20-2021 13:14-0400 Heart rate 83 /min Dr. Iftikhar Carlos Work Phone: [facility] Work Phone: 07-20-2021 13:14-0400 Respiratory rate 16 /min Dr. Iftikhar Carlos Work Phone: [facility] Work Phone: 07-20-2021 13:14-0400 SaO2% (BldA) [Mass fraction] 95 % Dr. Iftikhar Carlos Work Phone: [facility] Work Phone: 07-20-2021 13:14-0400 Systolic blood pressure 142 mm[Hg] Dr. Iftikhar Carlos Work Phone: [facility] Work Phone: 07-02-2021 13:24-0400 Body mass index (BMI) [Ratio] 29.7 kg/m2 Dr. Iftikhar Carlos Work Phone: [facility] Work Phone: 07-02-2021 13:24-0400 Body weight 91.[address] Iftikhar Carlos Work Phone: [facility] Work Phone: 07-02-2021 13:24-0400 Diastolic blood pressure 72 mm[Hg] Dr. Iftikhar Carlos Work Phone: [facility] Work Phone: 07-02-2021 13:24-0400 Heart rate 84 /min Dr. Iftikhar Carlos Work Phone: [facility] Work Phone: 07-02-2021 13:24-0400 Respiratory rate 16 /min Dr. Iftikhar Carlos Work Phone: [facility] Work Phone: 07-02-2021 13:24-0400 SaO2% (BldA) [Mass fraction] 96 % Dr. Iftikhar Carlos Work Phone: [facility] Work Phone: 07-02-2021 13:24-0400 Systolic blood pressure 162 mm[Hg] Dr. Iftikhar Carlos Work Phone: [facility] Work Phone: 06-28-2021 17:28-0400 Body temperature 98.4 [degF] Dr. Iftikhar Carlos Work Phone: [facility] Work Phone: 06-28-2021 17:28-0400 Diastolic blood pressure 74 mm[Hg] Dr. Iftikhar Carlos Work Phone: [facility] Work Phone: 06-28-2021 17:28-0400 Heart rate 79 /min Dr. Iftikhar Carlos Work Phone: [facility] Work Phone: 06-28-2021 17:28-0400 Respiratory rate 16 /min Dr. Iftikhar Carlos Work Phone: [facility] Work Phone: 06-28-2021 17:28-0400 SaO2% (BldA) [Mass fraction] 98 % Dr. Iftikhar Carlos Work Phone: [facility] Work Phone: 06-28-2021 17:28-0400 Systolic blood pressure 149 mm[Hg] Dr. Iftikhar Carlos Work Phone: [facility] Work Phone: 06-28-2021 14:18-0400 Body mass index (BMI) [Ratio] 29.5 kg/m2 Dr. Iftikhar Carlos Work Phone: [facility] Work Phone: 06-28-2021 14:18-0400 Body weight 90.[address] Iftikhar Carlos Work Phone: [facility] Work Phone: Encounters Encounter Date Encounter Type Care Provider Facility Start: 10-25-2024 End: 10-25-2024 ambulatory RANDALL RODRÍGUEZ Facility:[facility] Start: 10-20-2024 End: 10-20-2024 Telephone encounter Shira Vo RN [facility] Comment on above: Radiology Pre Proced ure Instructions Start: 10-18-2024 End: 10-18-2024 Telephone encounter Aric Troy RN Work Phone: [facility] Start: 10-18-2024 End: 10-18-2024 ambulatory ANGELES CASTRO Facility:[facility] Start: 09-14-2024 End: 09-16-2024 ambulatory Randall Rodríguez MD Work Phone: [facility] Comment on above: Procedure (Dx angiog huber to evaluate ACOM aneurysm) Start: 09-14-2024 End: 09-14-2024 Telephone encounter Randall Rodríguez MD Work Phone: [facility] Start: 09-03-2024 End: 09-03-2024 ambulatory Angeles Castro APRN.CHEMICAL EQUIPMENT CONTROLLER Work Phone: [facility] Comment on above: error Start: 09-02-2024 End: 09-02-2024 Patient encounter procedure Angeles Castro APRN.CHEMICAL EQUIPMENT CONTROLLER Work Phone: NEUROLOGY Comment on above: 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); Family history of cerebral aneurysm; Essential hypertension Start: 09-02-2024 End: 09-02-2024 ambulatory ANGELES CASTRO Facility:[facility] Start: 08-23-2024 End: 08-23-2024 Telephone encounter Mehran Chavez PA-C Work Phone: [facility] Comment on above: Results Start: 08-06-2024 End: 08-25-2024 Telephone encounter Mehran Chavez PA-C Work Phone: [facility] Comment on above: Results (Imaging Rep ort ) Start: 08-03-2024 End: 08-03-2024 ambulatory Gonzales Mosquera [employer]-C Work Phone: [facility] Work Phone: Start: 08-03-2024 End: 08-03-2024 Patient encounter procedure Gonzales Mosquera [employer]ENT[employer]IVE-C Work Phone: -[facility] Work Phone: Start: 08-03-2024 End: 08-03-2024 ambulatory Gonzales Mosquera C Facility:[facility] Start: 07-29-2024 End: 07-29-2024 ambulatory Gonzales Mosquera [employer]-C Work Phone: [facility] Work Phone: Start: 07-29-2024 End: 07-29-[address] Luis Valladares MD -Laboratory Work Phone: Start: 07-29-2024 End: 07-29-2024 ambulatory Gonzales Gonzalezder VSC Facility:[facility] Start: 07-19-2024 End: 07-20-2024 Telephone encounter Randall Rodríguez MD Work Phone: [facility] Comment on above: Orders Nonruptured cerebral aneurysm (HCC) (Primary Dx) Start: 04-27-2024 End: 04-27-2024 Patient encounter procedure Gonzales Mosquera [employer] REPRESENTATIVE-C -Radiology [facility] Work Phone: Start: 04-27-2024 End: 04-27-2024 ambulatory Gonzales Mosquera VSC Facility:[facility] Start: 03-24-2024 End: 03-24-2024 ambulatory Gonzales Mosquera VSC Facility:[facility] Start: 02-25-2024 End: 02-25-2024 ambulatory Gonazles Mosquera C [facility] Start: 02-25-2024 End: 02-25-2024 ambulatory Gonzales Mosquera VSC Facility:[facility] Start: 02-16-2024 End: 02-16-2024 Emergency department patient visit Gonzales Mosquera [facility] Facility:[facility] Start: 01-12-2024 End: 01-12-2024 Emergency department patient visit Gonzales Mosquera [facility] Facility:[facility] Start: 12-05-2023 End: 12-06-2023 ambulatory Gonzales Mosquera [facility] Facility:[facility] Start: 11-25-2023 End: 11-25-2023 ambulatory Gonzales Mosquera C Facility:[facility] Start: 11-03-2023 End: 11-03-2023 ambulatory Gonzales Mosquera [facility] Facility[facility] Start: 10-29-2023 End: 11-05-2023 Telephone encounter Jase Gibson APRN.CNP Work Phone: [facility] Comment on above: Patient Update (mike ent states he found out 3 weeks ago he has prostate cancer and has to have surgery, patient states he will have Dr. Valladares fax over medical clearance form. /) Start: 10-28-2023 End: 10-28-2023 ambulatory Gonzales Mosquera [facility] Facility:[facility] Start: 10-13-2023 End: 10-13-2023 ambulatory Gonzales Mosquera [facility] Facility:[facility] Start: 09-23-2023 End: 09-23-2023 ambulatory Gonzales Mosquera [facility] Facility:[facility] Start: 06-12-2023 Non-patient / Non-visit [employer] Davis Mosquera [facility] Work Phone: [facility] Start: 06-12-2023 End: 06-12-2023 Admission to same day surgery center [employer] Gonzales Mosquera VSC Work Phone: [facility]-Endoscopy Work Phone: Start: 06-12-2023 End: 06-12-2023 ambulatory [employer]IVE-C Gonzales Mosquera [facility] Work Phone: [facility] Work Phone: Start: 05-26-2023 Non-patient / Non-visit [employer]ENTATIVE-Marcelle Davis Gonzalezder [facility] Work Phone: [facility] Work Phone: Start: 05-02-2023 End: 05-02-2023 ambulatory [facility] Work Phone: Start: 05-02-2023 End: 05-02-2023 Patient encounter procedure [facility]-Pulmonary Services/Neurology Work Phone: Start: 02-04-2023 Registered Referred [facility] Start: 12-02-2022 End: 12-02-2022 Patient encounter procedure Arcenio Manuel MD Work Phone: Otolaryngology Comment on above: 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 Iftikhar Carlos [facility] Work Phone: Start: 11-11-2022 End: 11-11-[address] Iftikhar Carlos Work Phone: [facility] Work Phone: Start: 11-08-2022 End: 11-08-2022 Patient encounter procedure Gogo PATEL Work Phone: Audiology Comment on above: Sensorineural hearin g loss, asymmetrical (Primary Dx) Start: 10-23-2022 End: 10-23-2022 Emergency department patient visit Dr. Iftikhar Carlos Work Phone: [facility]-Emergency Department Work Phone: Start: 10-17-2022 Patient encounter procedure Imad Najm MD Work Phone: Neurology Comment on above: Altered awareness, t ransient (Primary Dx) Start: 10-17-2022 Telephone encounter Dionte Maxwell MD Work Phone: Neurology Comment on above: Future Appointment Start: 10-15-2022 End: 10-15-[address] Iftikhar Carlos Work Phone: [facility] Work Phone: Start: 10-15-2022 End: 10-15-[address] Iftikhar Carlos Work Phone: [facility]-Laboratory, Specimen Work Phone: Start: 09-16-2022 End: 09-16-[address] Iftikhar Carlos Work Phone: [facility] Work Phone: Start: 09-13-2022 ambulatory Mary Beth howard PA-C Work Phone: [facility] Start: 08-22-2022 Orders Only Jase mccracken APRN.CHEMICAL EQUIPMENT CONTROLLER Work Phone: Neurology Comment on above: Abnormal MRI of head (Primary Dx) Start: 08-21-2022 Telephone encounter Dionte Maxwell MD Work Phone: Neurology Comment on above: Future Appointment ( [place], [place], [place] ) Start: 07-18-2022 Non-patient / Non-visit Dr. Ramos Carlos Work Phone: [facility] Start: 07-18-2022 End: 07-18-[address] Iftikhar Carlos [facility] Work Phone: Start: 07-15-2022 Telephone encounter Shira Purdy RN [facility] Comment on above: Appointment Start: 07-10-2022 Telephone encounter Randall Rodríguez MD Work Phone: [facility] Comment on above: Request Outside [facility] Records (Requesting Imaging from [facility].) Start: 07-09-2022 End: 07-09-[address] Iftikhar Carlos Work Phone: [facility] Work Phone: Start: 07-02-2022 End: 07-02-2022 Emergency department patient visit Dr. Iftikhar Carlos Work Phone: [facility]-Emergency Department Start: 06-21-2022 ambulatory Randall Rodríguez MD Work Phone: [facility] Comment on above: Unruptured Aneurysm Start: 06-17-2022 Telephone encounter Randall Rodríguez MD Work Phone: C[facility]vascular [facility] Comment on above: Electronic Communica tion (Received [facility] ) Start: 06-17-2022 End: 06-17-2022 Patient encounter procedure Randall Rodríguez MD Work Phone: [facility] Comment on above: Unruptured cerebral aneurysm (Primary Dx); Hypertension, unspecified type; Nonintractable headache, unspecified chronicity pattern, unspecified headache type Start: 06-12-2022 End: 06-12-[address] Iftikhar Carlos Work Phone: [facility] Internal Medicine Start: 06-11-2022 End: 06-11-[address] Iftikhar Carlos Work Phone: [facility] Neurology Start: 06-05-2022 Telephone encounter Neurology Provid er [facility]ovascular [facility] Comment on above: Future Appointment ( [place], [place]) Start: 06-04-2022 Non-patient / Non-visit Dr. Ramos Carlos Work Phone: [facility] Start: 06-03-2022 Non-patient / Non-visit Dr. Ramos Carlos Work Phone: [facility] Start: 06-03-2022 Non-patient / Non-visit Dr. Ramos Carlos Work Phone: [facility] Start: 06-02-2022 End: 06-04-2022 Evaluation and management of inpatient Dr. Iftikhar Carlos Work Phone: [facility]-Progressive Care Unit Start: 06-02-2022 End: 06-04-[address] Iftikhar Carlos Work Phone: [facility] Work Phone: Start: 03-26-2022 End: 03-26-[address] Iftikhar Carlos Work Phone: [facility] Work Phone: Start: 03-26-2022 End: 03-26-[address] Iftikhar Carlos Work Phone: [facility] Internal Medicine Start: 02-21-2022 End: 02-21-[address] Iftikhar Carlos Work Phone: [facility] Work Phone: Start: 02-21-2022 End: 02-21-[address] Iftikhar Carlos Work Phone: [facility]-Laboratory, Specimen Start: 02-20-2022 End: 02-20-[address] Iftikhar Carlos Work Phone: [facility] Start: 11-14-2021 End: 11-14-[address] Iftikhar Carlos Work Phone: [facility] Work Phone: Start: 11-14-2021 End: 11-14-[address] Iftikhar Carlos Work Phone: [facility]-Laboratory, Specimen Start: 11-13-2021 End: 11-13-[address] Iftikhar Carlos Work Phone: [facility] Internal [facility] Start: 10-23-2021 End: 10-23-[address] Iftikhar Carlos Work Phone: [facility] Internal [facility] Start: 10-16-2021 End: 10-16-[address] Iftikhar Carlos Work Phone: [facility]-Laboratory Start: 07-20-2021 End: 07-20-[address] Iftikhar Carlos Work Phone: [facility] Internal [facility] Start: 07-02-2021 End: 07-02-[address] Iftikhar Carlos Work Phone: [facility] Internal [facility] Start: 06-28-2021 End: 06-28-2021 Emergency department patient visit Dr. Iftikhar Carlos Work Phone: [facility]-Emergency Department Start: 05-08-2020 Patient encounter procedure YVONNE DOR[facility] Start: 06-23-2018 End: 06-24-2018 Patient encounter procedure Brianna Anne Facility:[facility] Start: 05-02-2018 End: 05-02-2018 Patient encounter procedure Macario Tyler Facility:[facility] Start: 12-16-2017 End: 12-16-2017 Emergency department patient visit [employer] Facility:[facility] Start: 12-15-2017 End: 12-15-2017 Emergency department patient visit Roney Andrews Facility:[facility] Start: 12-09-2017 End: 12-19-2017 Patient encounter procedure JASPER HERNANDEZ Facility:[facility] [place] Start: 11-27-2017 End: 11-28-2017 Patient encounter procedure Brianna Anne Facility:[facility] Start: 09-23-2017 End: 09-25-2017 Patient encounter procedure Macario Tyler Facility:[facility] [place] Start: 08-18-2017 End: 08-18-2017 Emergency department patient visit David Manuel Facility:[facility] Procedures Date Procedure Procedure Detail Performing Clinician Start: 08-03-2024 Magnetic resonance angiography of head without contrast Gonzales Mosquera [employer]IVE[employer] Work Phone: Start: 07-29-2024 Assay of prostate sp ecific antigen total Gonzales Mosquera [employer]ENT[employer]IVE-C Work Phone: Comment on above: This test was perfor med using the [employer] tPSA method. Measured values of a patient sample can vary depending on the testing procedure used. PSA values determined on patient samples by different testing procedures cannot be used interchangeably. If there is a change in PSA assays while monitoring therapy, sequential testing should be performed to confirm baseline values. Start: 04-27-2024 Plain x-ray of pelvi s and lower extremity Gonzales Mosquera [employer]PRESENT[employer]IVE-C Work Phone: Start: 06-12-2023 Colonoscopy [employer] Gonzales Mosquera VSC Work Phone: Start: 11-29-2022 Plain chest X-ray Dr. Maria Elena Carlos Work Phone: Start: 11-29-[address] Iftikhar Carlos Work Phone: Start: 11-08-2022 HEARING TEST/AUDIOGRAM [employer] PATEL Work Phone: Start: 10-15-2022 Measurement of occul t blood in stool specimen using immunoassay Dr. Iftikhar Carlos Work Phone: Start: 07-02-2022 Plain chest X-ray Dr. Maria Elena Carlos Work Phone: Start: 07-02-2022 CT angiography of he ad and neck Dr. Iftikhar Carlos Work Phone: Start: 07-02-2022 CT of head without contrast Dr. Iftikhar Carlos Work Phone: Start: 06-03-[address] Iftikhar Carlos Work Phone: Start: 06-03-2022 MRI of brain without contrast Dr. Iftikhar Carlos Work Phone: Start: 06-02-2022 CT angiography of he ad and neck Dr. Iftikhar Carlos Work Phone: Start: 06-02-2022 Plain chest X-ray Dr. Maria Elena Carlos Work Phone: Start: 06-02-2022 CT of head without contrast Dr. Iftikhar Carlos Work Phone: Start: 06-28-2021 Plain chest X-ray Dr. Maria Elena Carlos Work Phone: SARS-CoV-2 & FLU Ant igen (Rapid) Dr. Iftikhar Carlos Work Phone: Plan of Treatment Date Care Activity Detail Author Start: 2036 RSV Vaccine (1 - 1-dose 75+ series) RSV Vaccine (1 - 1-dose 75+ series) [facility] Start: 07-29-2029 Prostate specific antigen measurement Prostate Cancer Screening Discussion [facility] Start: 07-27-2028 Urine microalbumin profile DTaP,Tdap,Td Vaccine (3 - Td or Tdap) [facility] Start: 10-19-2027 Diabetes Screening Diabetes Screening [facility] Start: 11-08-2024 Influenza vaccination [facility] Start: 11-08-2024 ambulatory Ambulatory Facility:[facility] Start: 10-25-2024 End: 10-25-2024 Admission to same day surgery center 10/25/2024 1:09 PM EDT - 10/25/2024 3:11 PM EDT Surgery [facility] [address] [place] [address] Randall Rodríguez MD [address] [place], [place] [id number] NON-SELECTIVE CATH PLACEMENT THORACIC AORTA W/ ANGIOGRAPHY OF THE EXTRACRANIAL CAROTID VERTEBRAL AND/OR INTRACRANIAL VESSELS BILATERAL W/ ANGIOGRAPHY OF THE CERVICOCEREBRAL ARCH [facility] Comment on above: NON-SELECTIVE CATH PLACEMENT THORACIC AO RTA W/ ANGIOGRAPHY OF THE EXTRACRANIAL CAROTID VERTEBRAL AND/OR INTRACRANIAL VESSELS BILATERAL W/ ANGIOGRAPHY OF THE CERVICOCEREBRAL ARCH Start: 10-25-2024 End: 10-25-2024 [address] thor aorta angio intr/xtrcranl art NON-SELECTIVE CATH PLACEMENT THORACIC AORTA W/ ANGIOGRAPHY OF THE EXTRACRANIAL CAROTID VERTEBRAL AND/OR INTRACRANIAL VESSELS BILATERAL W/ ANGIOGRAPHY OF THE CERVICOCEREBRAL ARCH Cerebral aneurysm (HCC) 10/25/2024 1:09 PM EDT [facility] Start: 10-25-2024 Subsequent hospital visit by physician 10/25/2024 1:09 PM EDT Hospital Encounter [facility] [address] [place] [address] Randall Rodríguez MD [address] [place], [place] [id number] Cerebral aneurysm (HCC) [I67.1] [facility] Comment on above: Cerebral aneurysm (HCC) [I67.1] Start: 09-24-2024 End: 12-24-2024 Basic metabolic 2000 panel - Serum or Plasma BASIC METABOLIC PANEL Lab Routine Cerebral aneurysm (HCC) Expected: 09/24/2024 (Approximate), Expires: 12/24/2024 [facility] Work Phone: Comment on above: Expected: 09/24/2024 (Approximate), Expi res: 12/24/2024 Start: 09-24-2024 End: 12-24-2024 CBC panel - Blood by Automated count COMPLETE BLOOD COUNT Lab Routine Cerebral aneurysm (HCC) Expected: 09/24/2024 (Approximate), Expires: 12/24/2024 [facility] Comment on above: Expected: 09/24/2024 (Approximate), Expi res: 12/24/2024 Start: 09-24-2024 End: 09-24-2024 ambulatory 09/24/2024 7:45 AM EDT Results Only Alicia [facility] Draw Station [address] [place] [address] Alicia [facility] Draw Station Start: 09-02-2024 End: 09-02-2024 Patient encounter procedure 09/02/2024 2:00 PM EDT Office Visit NEUROLOGY [address] [place] [facility] [place] [id number] Angeles Castro APRN.CHEMICAL EQUIPMENT CONTROLLER [address] [place] [address] discuss imaging results and future follow ups NEUROLOGY Comment on above: discuss imaging results and future follo w ups Start: 11-09-2023 Covid-19 Vaccine ( season) Covid-19 Vaccine () [facility] Start: 11-09-2023 Influenza vaccination Influenza Vaccine (#1) [facility] Start: 06-12-2023 Patient discharge [facility] Start: 06-02-2023 End: 01-01-2024 Mri brain brain stem w/o w/contrast material MRI BRAIN WO/W IVCON Radiology Routine 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 hearing of left ear Expected: 06/02/2023, Expires: 01/01/2024 [facility] Work Phone: Comment on above: Expected: 06/02/2023, Expires: Start: 11-30-2022 [facility] Start: 11-29-2022 [facility] Start: 11-08-2022 Covid-19 Vaccine ( season) Covid-19 Vaccine () [facility] Start: 11-08-2022 Influenza vaccination [facility] Start: 07-09-2022 Patient referral [facility] Work Phone: Start: 07-02-2022 Oxygen therapy [facility] Start: 07-02-2022 [facility] Start: 06-21-2022 End: 08-21-2022 Basic metabolic 2000 panel - Serum or Plasma BASIC METABOLIC PNL Lab Routine Cerebral aneurysm Expected: 06/21/2022, Expires: 08/21/2022 [facility] Work Phone: Comment on above: Expected: 06/21/2022, Expires: 3 Start: 06-21-2022 End: 08-21-2022 CBC panel - Blood by Automated count CBC Lab Routine Cerebral aneurysm Expected: 06/21/2022, Expires: 08/21/2022 [facility] Work Phone: Comment on above: Expected: 06/21/2022, Expires: Start: 06-04-2022 Patient discharge [facility] Start: 06-03-2022 [facility] Start: 06-03-2022 [facility] Start: 06-03-2022 Procedure [facility] Start: 06-03-2022 Thyroid stimulating hormone measurement [facility] Start: 06-03-2022 [facility] Start: 06-02-2022 Following clinical pathway protocol [facility] Start: 06-02-2022 Assessment of risk of venous thromboembolism [facility] Start: 06-02-2022 Cardiac monitoring [facility] Start: 06-02-2022 Care regimes management [facility] Start: 06-02-2022 Catheterization of vein [facility] Start: 06-02-2022 Continuous pulse oximetry [facility] Start: 06-02-2022 Elevation of head of bed [facility] Start: 06-02-2022 Exercises [facility] Start: 06-02-2022 Implementation of planned interventions [facility] Start: 06-02-2022 Inhalation therapy procedure [facility] Start: 06-02-2022 Insertion of catheter into peripheral vein [facility] Start: 06-02-2022 Measuring intake and output [facility] Start: 06-02-2022 Notification of physician [facility] Start: 06-02-2022 Providing care according to standard [facility] Start: 06-02-2022 Provision of activity privileges [facility] Start: 06-02-2022 Referral to occupational therapist [facility] Start: 06-02-2022 Referral to service [facility] Start: 06-02-2022 Speech therapy assessment [facility] Start: 06-02-2022 Tobacco use cessation education [facility] Start: 06-02-2022 [facility] Start: 06-02-2022 CT angiography of head and neck STROKE CTA Head AND Neck W/Con [facility] Start: 06-02-2022 MRI of brain without contrast Brain without Contrast [facility] Start: 06-02-2022 Admission procedure [facility] Start: 06-02-2022 Verification routine [facility] Start: 06-02-2022 Oxygen therapy [facility] Start: 06-02-2022 [facility] Start: 06-02-2022 Emergency department visit high/urgent severity EMERGENCY DEPT VISIT MOD MDM [facility] Start: 03-10-2022 DEPRESSION ASSESSMENT DEPRESSION ASSESSMENT [facility] Start: 11-08-2021 Influenza vaccination INFLUENZA (#1) [facility] Start: 2021 RSV Vaccine (1 - 1-dose 60+ series) RSV Vaccine (1 - 1-dose 60+ series) [facility] Start: 2021 RSV Vaccine (1 - Risk 60-74 years 1-dose series) RSV Vaccine (1 - Risk 60-74 years 1-dose series) [facility] Start: 05-12-2021 COVID-19 VACCINE (4 - Booster for Moderna series) COVID-19 VACCINE (4 - Booster for Moderna series) [facility] Start: 05-12-2021 COVID-19 VACCINE (4 - Moderna series) COVID-19 VACCINE (4 - Moderna series) [facility] Start: 2016 PROSTATE CANCER SCREENING DISCUSSION PROSTATE CANCER SCREENING DISCUSSION [facility] Start: 2016 Prostate specific antigen measurement Prostate Cancer Screening Discussion [facility] Start: 10-08-2011 Pneumococcal Vaccine: 50+ (1 of 1 - PCV) Pneumococcal Vaccine: 50+ (1 of 1 - PCV) [facility] Start: 10-08-2011 SHINGRIX VACCINE (1 of 2) SHINGRIX VACCINE (1 of 2) [facility] Start: 07-18-2008 DIABETES SCREEN DIABETES SCREEN [facility] Start: 07-18-2008 Diabetes Screening Diabetes Screening [facility] Start: 2006 COLOGUARD (FIT-DNA) COLOGUARD (FIT-DNA) [facility] Start: 2006 Colonoscopy COLONOSCOPY [facility] Start: 2006 COLORECTAL CANCER SCREENING COLORECTAL CANCER SCREENING [facility] Start: [address] COLONOGRAPHY [facility] Start: 2006 FECAL OCCULT BLOOD FECAL OCCULT BLOOD [facility] Start: 2006 Prostate specific antigen measurement Prostate Cancer Screening Discussion [facility] Start: 2006 Screening for malignant neoplasm of colon [facility] Start: 2006 SIGMOIDOSCOPY SIGMOIDOSCOPY [facility] Start: 1996 Lipid 1996 panel - Serum or Plasma Lipid Screening [facility] Start: 1996 Lipid panel Lipid Screening [facility] Start: 1996 LIPID SCREEN LIPID SCREEN [facility] Start: 1980 Urine microalbumin profile [facility] Start: 10-08-1979 ANNUAL PCP TEAM CHRONIC DISEASE VISIT ANNUAL PCP TEAM CHRONIC DISEASE VISIT [facility] Start: 10-08-1979 Anxiety Screening Anxiety Screening [facility] Start: 10-08-1979 BP CONTROLLED (<130/80) BP CONTROLLED (<130/80) [facility] Start: 10-08-1979 Depression Screening Depression Screening [facility] Start: 10-08-1979 HEPATITIS C SCREENING HEPATITIS C SCREENING [facility] Start: 10-08-1979 Hepatitis C screening Hepatitis C Screening [facility] Start: 10-08-1979 HIV SCREENING HIV SCREENING [facility] Start: 10-08-1979 HIV screening HIV Screening [facility] Start: 04-09-1962 COVID-19 VACCINE (#1) COVID-19 VACCINE (#1) [facility] Alanine aminotransfe rase [Enzymatic activity/volume] in Serum or Plasma [facility] Albumin [Mass/volume ] in Serum or Plasma [facility] Alkaline phosphatase [Enzymatic activity/volume] in Serum or Plasma [facility] Aspartate aminotransferase [Enzymatic activity/volume] in Serum or Plasma [facility] Bilirubin, total measurement [facility] Bilirubin.direct [Mass/volume] in Serum or Plasma [facility] Colonoscopy [facility] Cytology report of B vane fluid Cyto stain [facility] End: 10-18-2023 EPIL EEG LONG EPIL EEG LONG NEUROLOGY Routine Altered awareness, transient 1 Occurrences starting 10/17/2022 until 10/18/2023 [facility] Work Phone: Comment on above: 1 Occurrences starting 10/17/2022 until 10/18/2023 HEARING TEST/AUDIOGRAM HEARING T EST/AUDIOGRAM Audiology Routine 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 hearing of left ear Ordered: 12/02/2022 [facility] Work Phone: Comment on above: Ordered: 12/02/2022 IR CEREBRAL ARCH & T HREE VESSEL IR CEREBRAL ARCH & THREE VESSEL Radiology Routine Cerebral aneurysm Ordered: 06/21/2022 [facility] Work Phone: Comment on above: Ordered: 06/21/2022 IR CEREBRAL ARCH & T HREE VESSEL IR CEREBRAL ARCH & THREE VESSEL Radiology Routine Cerebral aneurysm (HCC) Ordered: 09/16/2024 [facility] Comment on above: Ordered: 09/16/2024 End: 08-18-2025 MRA Head vessels WO contrast MRA BRAIN WO IVCON Radiology Routine Nonruptured cerebral aneurysm (HCC) 1 Occurrences starting 07/20/2024 until 08/18/2025 [facility] Work Phone: Comment on above: 1 Occurrences starting 07/20/2024 until 08/18/2025 Patient Education [facility] Work Phone: Patient referral [facility] [place] Work Phone: Total protein measurement [facility] Immunizations Immunization Date Immunization Notes Care Provider [facility] 02-06-2024 influenza, high dose seasonal, preservative-free Gonzales Mosquera [employer] REPRESENTATIVE-C Work Phone: [facility] 02-06-2024 influenza virus vaccine, unspecified formulation Randall Rodríguez MD Work Phone: [facility] 12-26-2022 influenza, injectabl e, quadrivalent, preservative free [facility] 12-26-2022 influenza virus vaccine, unspecified formulation Jase Gibson CNC SPECIALIST.CHEMICAL EQUIPMENT CONTROLLER Work Phone: [facility] 04-24-2022 influenza, injectabl e, quadrivalent, preservative free Dr. Iftikhar Carlos Work Phone: [facility] 04-24-2022 influenza, seasonal, injectable Dr. Iftikhar Carlos Work Phone: [facility] 04-24-2022 influenza virus vaccine, unspecified formulation Arcenio Manuel MD Work Phone: [facility] 03-17-2021 Covid (Moderna) Dr. Sarthak Carlos Work Phone: [facility] 12-15-2020 influenza, injectabl e, quadrivalent, preservative free Dr. Iftikhar Carlos Work Phone: [facility] 12-15-2020 influenza, seasonal, injectable Dr. Iftikhar Carlos Work Phone: [facility] 04-11-2020 Covid (Moderna) Dr. Sarthak Carlos Work Phone: [facility] 03-14-2020 Covid (Moderna) Dr. Sarthak Carlos Work Phone: [facility] 11-30-2019 influenza, injectabl e, quadrivalent, preservative free Dr. Iftikhar Carlos Work Phone: [facility] 11-30-2019 influenza, seasonal, injectable Dr. Iftikhar Carlos Work Phone: [facility] 01-27-2019 hepatitis B vaccine, adult dosage Dr. Iftikhar Carlos Work Phone: [facility] 12-23-2018 influenza, injectabl e, quadrivalent, preservative free Dr. Iftikhar Carlos Work Phone: [facility] 12-23-2018 influenza, seasonal, injectable Dr. Iftikhar aCrlos Work Phone: [facility] 08-17-2018 hepatitis B vaccine, adult dosage Dr. Iftikhar Carlos Work Phone: [facility] 07-27-2018 tetanus toxoid, redu ana m diphtheria toxoid, and acellular pertussis vaccine, adsorbed Dr. Iftikhar Carlos Work Phone: [facility] 07-13-2018 hepatitis B vaccine, adult dosage Dr. Iftikhar Carlos Work Phone: [facility] Payers Date Payer Category Payer Private Health Insurance [id number] 2022 Unknown [id number] 2022 Medicaid [facility] MEDICAID [id number] 2022-Present [phone] [address] [place] [address] Medicaid [id number] 2018 Medicaid [id number] 2017 Self-pay 2017 Unknown [id number] 1960 Unknown [id number]. 138 1961 Unknown [id number] 2.16.840.1.790271.3.579.2. 138 1961 Unknown [id number] 2.16.840.1.599280.3.579.2. 138 1961 Unknown [id number] 2.16.840.1.377734.3.579.2. 138 1961 Unknown [id number] 2.16.840.1.206352.3.579.2. 138 1961 Unknown [id number] 2.16.840.1.099926.3.579.2. 138 Private Health Insurance [id number] Self-pay SELF PAY ER DEPOSIT [id number] Unknown [id number] 2.16.840.1.477026.3.579.2. 373 Unknown [id number] 2.16.840.1.884155.3.579.2. 373 Unknown [id number] 2.16.840.1.443307.3.579.2. 462 Unknown [id number] 2.16.840.1.462454.3.579.2. 462 Unknown [id number] 2.16.840.1.515449.3.579.2. 462 Unknown [id number] 2.16.840.1.201544.3.579.2. 462 Unknown [id number] 2.16.840.1.802004.3.579.2. 462 Unknown [id number] 2.16.840.1.554981.3.579.2. 462 Unknown [id number] 2.16.840.1.454902.3.579.2. 462 Unknown [id number] 2.16.840.1.677721.3.579.2. 462 Unknown [id number] 2.16840.1.009253.3.579.2. 462 Unknown [id number] 2.16.840.1.869070.3.579.2. 462 Unknown [id number] 2.16.840.1.629166.3.579.2. 462 Unknown [id number] 2.16.840.1.908443.3.579.2. 462 Unknown [id number] 2.16.840.1.066741.3.579.2. 462 Unknown [id number] 2.16840.1.065347.3.579.2. 462 Unknown [id number] 2.16840.1.882908.3.579.2. 462 Social History Date Type Detail Facility Start: 07-20-2021 End: 06-11-2023 Tobacco smoking status NHIS Unknown if ever smoked [facility] Start: 01-25-2020 None [facility] Start: 05-07-2020 Spouse/ Signif icant Other [facility] Start: 06-29-2020 Non-smoker [facility] Start: 1960 Sex Assigned At Male [facility] Start: 08-21-2018 Tobacco smoking status [facility] Never smoked tobacco [facility] Start: 08-21-2018 End: 09-02-2024 Tobacco use and exposure Smokeless tobacco non-user [facility] Start: 1960 Sex Assigned At Not on file [facility] Start: 06-17-2022 End: 09-02-2024 Tobacco smoking status NHIS Ex-smoker [facility] End: 03-10-1994 History of tobacco use Current smoker [facility] End: 03-10-1994 History of tobacco use Cigarette Smoker [facility] Start: 08-14-2022 End: 11-25-2022 History of Social function [facility] Start: 08-14-2022 End: 11-25-2022 Tobacco use panel [facility] Start: 02-09-2012 PHQ-2 Score 0 [facility] Start: 12-02-2022 End: 09-02-2024 Alcohol intake Ex-drinker (finding) [facility] Medical Equipment Procedure Code Equipment Code Equipment Origin al Text Equipment Identifier Dates Robot-assisted laparoscopic radical prostatectomy CLIP,HEMOLOCK [facility] FDA Start: 12-05-2023 Robot-assisted laparoscopic radical prostatectomy SURGIFLO HEMOSTATIC MATRIX FDA Start: 12-05-2023 Robot-assisted laparoscopic radical prostatectomy CLIP,HEMOLOCK TriplePulseCK FDA Start: 12-05-2023 Robot-assisted laparoscopic radical prostatectomy SURGIFLO HEMOSTATIC MATRIX FDA Start: 12-05-2023 Blood Sugar Diagnostic (Freestyle Lite Strips) strip Start: 09-09-2018 Lancets (Freesty le Lancets) 28 gauge misc Start: 09-09-2018 Blood Sugar Diagnostic (Freestyle Lite Strips) strip Start: 09-09-2018 Lancets (Freesty le Lancets) 28 gauge misc Start: 09-09-2018 Blood Sugar Diagnostic (Freestyle Lite Strips) strip Start: 09-09-2018 Lancets (Freesty le Lancets) 28 gauge misc Start: 09-09-2018 Blood Sugar Diagnostic (Freestyle Lite Strips) strip Start: 09-09-2018 Lancets (Freesty le Lancets) 28 gauge misc Start: 09-09-2018 Blood Sugar Diagnostic (Freestyle Lite Strips) strip Start: 09-09-2018 Lancets (Freesty le Lancets) 28 gauge misc Start: 09-09-2018 Blood Sugar Diagnostic (Freestyle Lite Strips) strip Start: 09-09-2018 Lancets (Freesty le Lancets) 28 gauge misc Start: 09-09-2018 Blood Sugar Diagnostic (Freestyle Lite Strips) strip Start: 09-09-2018 Lancets (Freesty le Lancets) 28 gauge misc Start: 09-09-2018 Blood Sugar Diagnostic (Freestyle Lite Strips) strip Start: 09-09-2018 Lancets (Freesty le Lancets) 28 gauge misc Start: 09-09-2018 Blood Sugar Diagnostic (Freestyle Lite Strips) strip Start: 09-09-2018 Lancets (Freesty le Lancets) 28 gauge misc Start: 09-09-2018 Blood Sugar Diagnostic (Freestyle Lite Strips) strip Start: 09-09-2018 Lancets (Freesty le Lancets) 28 gauge misc Start: 09-09-2018 Blood Sugar Diagnostic (Freestyle Lite Strips) strip Start: 09-09-2018 Lancets (Freesty le Lancets) 28 gauge misc Start: 09-09-2018 Blood Sugar Diagnostic (Freestyle Lite Strips) strip Start: 09-09-2018 Lancets (Freesty le Lancets) 28 gauge misc Start: 09-09-2018 Blood Sugar Diagnostic (Freestyle Lite Strips) strip Start: 09-09-2018 Lancets (Freesty le Lancets) 28 gauge misc Start: 09-09-2018 Goals Date Patient Goal Desired Activity /State Functional Status Date Assessment Result Facility 06-04-2022 Functional status Up ad monalisa [facility] Work Phone: Mental Status Date Assessment Result Facility 06-12-2023 Cognitive function Level Of Consciousness Drowsy [facility] Work Phone: 06-12-2023 Cognitive function Voice/Name [facility] Work Phone: 11-29-2022 Cognitive function Level Of Cons ciousness Awake;Alert;Appropriate [facility] Work Phone: 07-02-2022 Cognitive function Awake;Alert;A ppropriate;Follow s Commands [facility] Work Phone: 06-04-2022 Cognitive function Voice/Name [facility] Work Phone: Clinical Notes 06-02-2022 to 10-25-2024 Telephone Encounter - Shira Vo RN - 10/20/2024 1:38 PM EDTTelephone Encounter - Shira Vo RN - 10/20/2024 1:38 PM EDTTelephone Encounter - Marley Zaldivar RN - 09/14/2024 4:08 PM EDT Note Date & Type Note Facility 10-25-2024 Note HNO ID: [id number] Author: RANDALL MUÑOZ RN Service: ? Author Type: Registered Nurse Type: Progress Notes Filed: 10/25/2024 15:11 Note Text: Plan after cerebral angiogram per Dr Rodríguez: Small aneurysm at A-comm is less than 3 mm. No growth over the years. Recommend follow up noncon MRA every 1-2 years. He agrees with the planAngeles if you could follow him [facility] 10-20-2024 Telephone encounter Note RADIOLOGY PROCEDURE INSTRUCTIONS: You are scheduled for a Diagnostic angiogram, on Friday October 25, 2024 You are to arrive at 12 pm and check in at [facility] Radiology Department located on 1st floor. You can expect to be here for 6-8 hours. Address: [place] [address] Diet: Do not eat any solid food after midnight the night before your procedure. You may drink clear liquids until 10:00 am the day of your procedure, which means black coffee, apple juice, tea, jello, Gatorade, or water only. Medications: Please take prescribed medications such as heart, blood pressure, anti-seizure, and chronic pain medications with a sip of clear liquids. Bring your current medication list. Radiology recommends these medication restrictions: If you are taking any medication that is a blood thinner, hypoglycemic, weight loss agent, etc., you may need to hold this medication prior to procedure. Not stopping the medication correctly may result in your procedure being canceled. Make sure to take your plavix and aspirin as instructed on day of procedure. If you are currently taking injectable or oral medication for diabetes or weight loss: Tirzepatide (Mounjaro) Hold the day of the procedure for daily doses Hold the week before the procedure for weekly doses These medications cause food to remain in your stomach for extended periods of time and increase risks of sedation. Allergies: Allergies reviewed: Yes Do you have a contrast dye allergy? No. Labs: Lab work needs to be drawn? No. Deputy Bailiff/Transportation: How will you be arriving for your procedure? Private car. If you will be arriving via ambulance or public transportation, please call to discuss. You will need a responsible adult to accompany you to and from the procedure. We will verify your ride home upon arrival. Minors/visitors requiring supervision cannot accompany you unless there is another responsible adult with them. Child and/or dependent care arrangements need to be made. If you need to cancel or reschedule your procedure, please call our hog sawyer: Charisma Treadwell and [facility] [phone]; 8am - 4pm M-F If you have any additional questions please call: [facility] nurses desk at [phone] 8am - 4pm M-F. [facility] 10-20-2024 Miscellaneous Notes RADIOLOGY PROCEDURE INSTRUCTIONS: You are scheduled for a Diagnostic angiogram, on Friday October 25, 2024 You are to arrive at 12 pm and check in at [facility] Radiology Department located on 1st floor. You can expect to be here for 6-8 hours. Address: [address] [place] [place] [address] Diet: Do not eat any solid food after midnight the night before your procedure. You may drink clear liquids until 10:00 am the day of your procedure, which means black coffee, apple juice, tea, jello, Gatorade, or water only. Medications: Please take prescribed medications such as heart, blood pressure, anti-seizure, and chronic pain medications with a sip of clear liquids. Bring your current medication list. Radiology recommends these medication restrictions: If you are taking any medication that is a blood thinner, hypoglycemic, weight loss agent, etc., you may need to hold this medication prior to procedure. Not stopping the medication correctly may result in your procedure being canceled. Make sure to take your plavix and aspirin as instructed on day of procedure. If you are currently taking injectable or oral medication for diabetes or weight loss: Tirzepatide (Mounjaro) Hold the day of the procedure for daily doses Hold the week before the procedure for weekly doses These medications cause food to remain in your stomach for extended periods of time and increase risks of sedation. Allergies: Allergies reviewed: Yes Do you have a contrast dye allergy? No. Labs: Lab work needs to be drawn? No. Deputy Bailiff/Transportation: How will you be arriving for your procedure? Private car. If you will be arriving via ambulance or public transportation, please call to discuss. You will need a responsible adult to accompany you to and from the procedure. We will verify your ride home upon arrival. Minors/visitors requiring supervision cannot accompany you unless there is another responsible adult with them. Child and/or dependent care arrangements need to be made. If you need to cancel or reschedule your procedure, please call our hog sawyer: Charisma Treadwell and [place] [phone]; 8am - 4pm M-F If you have any additional questions please call: [facility] nurses desk at [phone] 8am - 4pm M-F. documented in this encounter [facility] 09-14-2024 Telephone encounter Note Called pt to discuss dates for dx angiogram with Dr. Rodríguez at in . He agreed to 3rd case on Wednesday 10/25. Offered 10/28 which has no cases scheduled yet, but pt states the is better for him. Takes Mounjaro on Mondays. Last dose will be on 10/18. Will get labs at [facility]. Written instructions to be sent through my chart. Marley Zaldivar RN [facility] 09-14-2024 Miscellaneous Notes Called pt to discuss dates for dx angiogram with Dr. Rodríguez at in . He agreed to 3rd case on Wednesday 10/25. Offered 10/28 which has no cases scheduled yet, but pt states the is better for him. Takes Mounjaro on Mondays. Last dose will be on 10/18. Will get labs at [facility]. Written instructions to be sent through my chart. Marley Zaldivar RN documented in this encounter [facility] 09-02-2024 Instructions Angeles Castro, ANGEL.CHEMICAL EQUIPMENT CONTROLLER - 09/02/2024 2:38 PM EDT Images from the original note were not included. Regarding your visit with Nurse Practitioner Angeles Castro today at the [facility] Cerebrovascular Center we discussed the following: We discussed your brain aneurysm: - Your recent imaging shows the aneurysm has increased to 3.5 mm. This may be due to the difference in imaging techniques. - The radiology report noted some limitations in the imaging, but the updated results have been reviewed. I will forward these findings to Dr. Rodríguez for further evaluation. - We discussed the option of proceeding with an angiogram for a more detailed assessment of the aneurysm. This test would provide precise measurements and help determine the best course of action, including potential treatment options if needed. - The angiogram involves accessing an artery (typically in the wrist) and using imaging to evaluate the blood vessels in detail. Post-procedure restrictions include avoiding heavy lifting for 5 days. - I will coordinate with Dr. Rodríguez s office to assist with scheduling the angiogram. If you prefer to have the procedure at [facility], I will note this preference. We discussed your family history and risk factors: - You have a family history of aneurysms and heart disease, including a cousin who from an aneurysm at age 17, a brother who recently had open-heart surgery, and a mother with extensive cardiac history. - Your blood pressure is a wheeler factor in managing your aneurysm risk. Please ensure you take your blood pressure medications as prescribed. If you experience difficulty remembering doses, consider setting reminders or keeping your medication with you. We discussed your stress and lifestyle: - You reported significant stress related to your job, which may be contributing to elevated blood pressure and headaches. Stress management is important for your overall health and aneurysm risk. - Consider taking steps to reduce stress, such as exploring early correction, as you mentioned, or finding ways to take breaks during the day. Even short periods of relaxation can help. Next steps: - I will request the updated imaging report from [facility] to ensure we have the most complete information. - Once the angiogram is scheduled, Dr. Anne Waldron s nurse, will assist with the details. Please let us know if you have any questions or concerns in the meantime. - Continue monitoring your blood pressure at home and take your medications as prescribed. If you experience worsening headaches, vision changes, or other concerning symptoms, please contact our office or seek immediate medical attention. Thank you for discussing your care with me today. Angeles Castro CNP Cerebrovascular Center Nurse Practitioner [place], [place] [address] Office: [phone] Appointments: [phone] documented in this encounter [facility] 09-02-2024 Note HNO ID: [id number] Author: ANGELES CASTRO APRN.CNP Service: ? Author Type: Nurse Practitioner Type: Progress Notes Filed: 09/02/2024 15:17 Note Text: [facility] Established Outpatient Visit Temo Wilkes [facility]#: [id number] Date of Service: 09/02/2024 Primary Care Provider: Macario Tyler DO [address] [id number] OUTPATIENT FOLLOW-UP Chief complaint: incidental brain aneurysm Collaborating Physician: Randall Rodríguez MD Referring Provider: Macario Tyler DO History of present illness: Mr. Wilkes is a 63-year-old male, who presents for initial evaluation of an incidentally discovered brain aneurysm with Dr. Rodríguez in 06/2022. The patient developed sudden onset sweating upper lip numbness and right hand numbness with garbled speech about 2-3 weeks ago while reading in [employer]. He had to sit down, and about 10 minutes his symptoms resolved. He continued to have headache for several hours after that. He still continues to have low-grade headaches. 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 The patient reports 2 other similar events in the last 10 years, but those had no significant associated headaches, per patient. He was told that he might have had TIAs or mini seizures. He denies any other seizure-like spells. He takes blood pressure medications, but he is uncertain how well his blood pressure is controlled. He also has high cholesterol and diabetes. He does not smoke, quit in the . He had a cousin who collapsed at age 17 and , possibly of an aneurysm, but the details are not clear. There are no other family members with brain aneurysm or subarachnoid hemorrhage. Interval History: Temo Wilkes is a 63-year-old male with a history of aneurysm, presenting for follow-up. Temo reports that his aneurysm has increased in size from 3 mm to 3.5 mm. He has a family history of aneurysm, with a cousin on his father's side who at age 17 from an aneurysm. He also has a history of seizures during childhood, including absence seizures and a few generalized tonic-clonic seizures at ages 12-13. He has not experienced any recent episodes since starting Plavix. 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 He is considering early correction due to the stress, which he believes is contributing to frequent headaches and elevated blood pressure. He monitors his blood pressure at home but forgot to take his medication today. He does not smoke, drink alcohol, or use drugs, having quit all in 1994. Temo is currently taking Mounjaro, Plavix, and medications for blood pressure and cholesterol. He does not endorse any new neurological symptoms. Past Diagnostic Results: - (06/2022) CT Scan: Aneurysm measured at 3.5 mm. - (2021) MRI: Aneurysm measured at 3 mm. Hypertension NA Coronary Artery Disease NA Diabetes NA Obesity NA Dyslipidemia NA Tobacco Use (Please Update Smoking History) NA Stroke NA Intracranial Aneurysm NA Past Medical History: ACTIVE PROBLEM LIST Unspecified Disease of Pancreas Sensorineural Hearing Loss, Asymmetrical PAST SURGICAL HISTORY Procedure Laterality Date PROSTATE SURGERY HX 11/2023 Allergies: Tenaha Seed and Pneumovax 23 [Pneumococcal 23-Danie Ps Vaccine] Current Outpatient Medications Medication Sig enalapril (VASOTEC) 10 mg tablet Take 1 tablet by mouth once daily. Fenofibrate (LOFIBRA) 160 mg tablet MOUNJARO 7.5 mg/0.5 mL pen injector clopidogrel (PLAVIX) 75 mg tablet Take 75 mg by mouth once daily. hydrOXYchloroQUINE (PLAQUENIL) 200 mg tablet 2 tablets. metoprolol tartrate, short acting, (LOPRESSOR) 25 mg tablet atorvastatin (LIPITOR) 40 mg tablet Take 40 mg by mouth once daily. losartan (COZAAR) 25 mg tablet Take 25 mg by mouth once daily. amLODIPine (NORVASC) 2.5 mg tablet Take 5 mg by mouth once daily. ergocalciferol 50,000 unit capsule (VITAMIN D2, DRISDOL) Take 50,000 Units by mouth. No current facility-administered medications for this visit. Social History Tobacco Use Smoking status: Former Current packs/day: 0.00 Types: Cigarettes Quit date: 1994 Years since quittin.5 Smokeless tobacco: Never Substance Use Topics Alcohol use: Not Currently Family History: Subarachnoid hemorrhage: Yes, paternal cousin at age 17 Aneurysms: Yes, paternal cousin Stroke: None Vascular malformations: None Other neurologic diseases: None Review of Systems Constitutional: Negative. HENT: Negative. Eyes: Negative. Respiratory: Negative. Cardiovascular: Negative. Gastrointestinal: Negative. Hematologic/Lymphatic: Negative. Musculoskeletal: Negative. Sk (more content not included)... [facility] 09-02-2024 History of Presen t illness Narrative [facility] Established Outpatient Visit Temo Wilkes [facility]#: [id number] Date of Service: 09/02/2024 Primary Care Provider: Macario Tyler DO [address] [facility] [address] [facility] [id number] OUTPATIENT FOLLOW-UP Chief complaint: incidental brain aneurysm Collaborating Physician: Randall Rodríguez MD Referring Provider: Macario Tyler DO History of present illness: Mr. Wilkes is a 63-year-old male, who presents for initial evaluation of an incidentally discovered brain aneurysm with Dr. Rodríguez in 06/2022. The patient developed sudden onset sweating upper lip numbness and right hand numbness with garbled speech about 2-3 weeks ago while reading in [employer]. He had to sit down, and about 10 minutes his symptoms resolved. He continued to have headache for several hours after that. He still continues to have low-grade headaches. 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 The patient reports 2 other similar events in the last 10 years, but those had no significant associated headaches, per patient. He was told that he might have had TIAs or mini seizures. He denies any other seizure-like spells. He takes blood pressure medications, but he is uncertain how well his blood pressure is controlled. He also has high cholesterol and diabetes. He does not smoke, quit in the . He had a cousin who collapsed at age 17 and , possibly of an aneurysm, but the details are not clear. There are no other family members with brain aneurysm or subarachnoid hemorrhage. Interval History: Temo Wilkes is a 63-year-old male with a history of aneurysm, presenting for follow-up. Temo reports that his aneurysm has increased in size from 3 mm to 3.5 mm. He has a family history of aneurysm, with a cousin on his father's side who at age 17 from an aneurysm. He also has a history of seizures during childhood, including absence seizures and a few generalized tonic-clonic seizures at ages 12-13. He has not experienced any recent episodes since starting Plavix. 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 He is considering early correction due to the stress, which he believes is contributing to frequent headaches and elevated blood pressure. He monitors his blood pressure at home but forgot to take his medication today. He does not smoke, drink alcohol, or use drugs, having quit all in 1994. Temo is currently taking Mounjaro, Plavix, and medications for blood pressure and cholesterol. He does not endorse any new neurological symptoms. Past Diagnostic Results: - (06/2022) CT Scan: Aneurysm measured at 3.5 mm. - (2021) MRI: Aneurysm measured at 3 mm. Hypertension NA Coronary Artery Disease NA Diabetes NA Obesity NA Dyslipidemia NA Tobacco Use (Please Update Smoking History) NA Stroke NA Intracranial Aneurysm NA Past Medical History: ACTIVE PROBLEM LIST Unspecified Disease of Pancreas Sensorineural Hearing Loss, Asymmetrical PAST SURGICAL HISTORY Procedure Laterality Date PROSTATE SURGERY HX 11/2023 Allergies: Tenaha Seed and Pneumovax 23 [Pneumococcal 23-Danie Ps Vaccine] Current Outpatient Medications Medication Sig enalapril (VASOTEC) 10 mg tablet Take 1 tablet by mouth once daily. Fenofibrate (LOFIBRA) 160 mg tablet MOUNJARO 7.5 mg/0.5 mL pen injector clopidogrel (PLAVIX) 75 mg tablet Take 75 mg by mouth once daily. hydrOXYchloroQUINE (PLAQUENIL) 200 mg tablet 2 tablets. metoprolol tartrate, short acting, (LOPRESSOR) 25 mg tablet atorvastatin (LIPITOR) 40 mg tablet Take 40 mg by mouth once daily. losartan (COZAAR) 25 mg tablet Take 25 mg by mouth once daily. amLODIPine (NORVASC) 2.5 mg tablet Take 5 mg by mouth once daily. ergocalciferol 50,000 unit capsule (VITAMIN D2, DRISDOL) Take 50,000 Units by mouth. No current facility-administered medications for this visit. Social History Tobacco Use Smoking status: Former Current packs/day: 0.00 Types: Cigarettes Quit date: 1994 Years since quittin.5 Smokeless tobacco: Never Substance Use Topics Alcohol use: Not Currently Family History: Subarachnoid hemorrhage: Yes, paternal cousin at age 17 Aneurysms: Yes, paternal cousin Stroke: None Vascular malformations: None Other neurologic diseases: None Review of Systems Constitutional: Negative. HENT: Negative. Eyes: Negative. Respiratory: Negative. Cardiovascular: Negative. Gastrointestinal: Negative. Hematologic/Lymphatic: Negative. Musculoskeletal: Negative. Skin: Negative. Neurological: Positive for headaches. Psychiatric: Positive for anxiety. Patient Entered Questionnaires PROMIS/NeuroQoL Score Percentiles 04/10/2024 Physical Health Physical Function Percentile 42 Sleep Percentile 54 Fatigue Percentile 62 Pain Interference Percentile 38 04/10/2024 PROMIS SOCIAL ROLE SCORE Social Role Satisfaction Percentile 66 04/10/2024 Mental Health General Self-Efficacy Percentile 86 11/02/2022 PROMIS Global Health Scale Physical Health Percentile 41 Mental Health Percentile 82 Percentiles provide an indication of how a patient's score ranks in relation to the [place] general population. > 31st percentile is within normal limits or better * < 31st percentile is at least SD worse than population, which may be clinically relevant < 16th percentile is at least 1 SD worse than population and warrants attention Depression Screenin11/19/2022 PHQ-9 Score 1 Self-Harm Response Not at all PHQ-9 Scores: PHQ-9 Self-Harm (Item 9) Response: 0 - 9 No to Mild depression 0 - Not at all 10 - 14 Moderate depression 1 - Several Days > 15 Severe depression 2 - More than half the days 3 - Nearly every day PHYSICAL EXAMINATION Wt 79.2 kg (174 lb 9.7 oz) BMI 25.78 kg/m General: Pleasant, well-developed, well-nourished, in no acute distress. HEENT: Normocephalic, atraumatic. Lungs: Respirations even and unlabored. Skin: No rash or ecchymoses visible. Neurological: Awake, alert, oriented to person, place, and time. Speech fluent, no dysarthria. Good attention and insight into illness. Cranial Nerves: Extraocular movements grossly intact. Facial movements appear normal and symmetric. Motor: Moves upper extremities freely. IMAGING MRA brain without contrast (08/03/2024): ADDENDUM: The source images from the MR of 08/03/2024 have become available. On the source images, there is an aneurysm arising from the junction of the right A1 and A1 segments and points medially. This is a rather linear configuration of an aneurysm and my measurement today is a approximately 3.5 mm. Overall, in comparing modalities, I do not believe there is a significant difference in size. When the examination is correlated with the CT angiogram of 07/02/2022, the aneurysm had a more saccular configuration on imaging and measured about 3.5 mm. ADDENDUM: Prior CT angiogram of 07/02/2022 identified in a small right-sided anterior communicating artery aneurysm. On the current MRA, the axial source images were not included as such, it is difficult to fully evaluate the aneurysm. On the three-dimension reconstructions, there is a suggestion that the aneurysm is stable but this is not definitive. If source images can be supplied, I would be happy to dictate an addendum with an acute comparison. OSH noncon CT head May 2022: No acute changes OSH CTA head May 2022: Approximately 3 mm anterior communicating aneurysm. Left vertebral origin stenosis versus artifact due to vessel turn, in my opinion. Left vertebral artery appears to end in PICA. Right vertebral origin appears patent. Labs Lab Results Component Value Date HBA1C 5.7 06/11/2002 Cholesterol, Total Date Value Ref Range Status 04/08/2003 272.0 (H) <200 mg/dL Final HDL Cholesterol Date Value Ref Range Status 04/08/2003 33 30 - 65 mg/dL Final LDL Calculated Date Value Ref Range Status 04/08/2003 <130 mg/dL Final LDL CHOLESTEROL NOT CALCULATED WHEN TRIGLYCERIDES >400MG/DL Triglyceride Date Value Ref Range Status 04/08/2003 818 (H) <150 mg/dL Final Stroke Mechanism and Scales Modified Mazin Score: Score: 1 NIH Stroke Scale: LOC: 0 LOC Questions: 0 LOC Commands: 0 LOC Normal Gaze: 0 Visual Obando: 0 Facial Palsy: 0 Motor Left Arm: 0 Motor Right Arm: 0 Motor Left Le Motor Right Le Limb Ataxia: 0 Sensory: 0 Language: 0 Dysarthria: 0 Extinction/Neglect: 0 Total Daily NIHSS: 0 Cerebrovascular Disease w/o Stroke Event: Unruptured Aneurysm IMPRESSION/PLAN # 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 Recent imaging shows an increase in size from 3 mm to 3.5 mm. Initial radiology report was inconclusive due to missing axial slices, but a subsequent report confirmed the increase in size however possibly attributing to differences in modalities. No appreciable difference upon my personal review today. Family history includes a cousin who of an aneurysm at 17 years old. - Discussed the benefits of an angiogram for more precise measurement and assessment of the aneurysm. He has requested this evaluation in the past given family history but deferred at the time in setting of other neurologic work-up. - Will forward the updated imaging report to Dr. Rodríguez and request the final report from [facility]. # Family history of cerebral aneurysm (Z82.49) Family history includes a cousin who of an aneurysm at 17 years old on the paternal side. # Essential hypertension (I10) Blood pressure management is crucial to reduce the risk of aneurysm rupture. Patient occasionally forgets to take antihypertensive medication. - Emphasized the importance of strict blood pressure control. - Advised patient to ensure regular intake of antihypertensive medication. I spent a total of 24 minutes on the date of the service which included preparing to see the patient, [id number] patient care, completing clinical documentation, obtaining and/or reviewing separately obtained history, performing a medically appropriate examination, counseling and educating the patient/family/caregiver, communicating with other HCPs (not separately reported), independently interpreting results (not separately reported), and communicating results to the patient/family/caregiver. Recording using eMindful software for draft documentation of the visit was discussed with the patient/authorized in store marketing representative; all questions welcomed and answered. Patient/authorized in store marketing representative agreed to proceed SIGNATURE Angeles Castro APRN.CNP 09/02/2024 documented in this encounter [facility] 08-25-2024 Telephone encounter Note Called Jolo on hold will call back, . Were any additional views provided ie axial? Could we request the imaging again to include all views and not just 3D MIPS. [facility] 08-25-2024 Miscellaneous Notes Called Jolo on hold will call back, . Were any additional views provided ie axial? Could we request the imaging again to include all views and not just 3D MIPS. Images are viewable in chart, patient called in to make sure they were pushed through to us. I told him to expect a call from our office with further instructions after review by team. Received imaging report. Scanned in chart. Called [facility], requested MRA from 08/01 be pushed through. MRA head results received from [facility] and scanned in chart documented in this encounter [facility] 08-23-2024 Telephone encounter Note Send message to schedulers to contact pt and assist with f/u, BEATRICE 06/17/2022 [facility] 08-23-2024 Miscellaneous Notes Send message to schedulers to contact pt and assist with f/u, BEATRICE 06/17/2022 CV PHONE Name of caller : Temo Relationship to patient : Self If not self Will need patient permission to release results or disclose health information with called documented in fyi. Patient identified by Name and Date of . ( Temo Wilkes, 1960). Yes Number to return call [phone] Reason for Call: Patient Question/Update: Patient asking for a call to go over MRI results. Thank you calling [facility] [place]. You will receive a return call within 48 hours ( or 2 business days if close to the weekend). If you feel that this is an urgent issue and needs immediate attention, it is recommended that you contact your primary care provider office or proceed to your nearest Urgent Care Center of Emergency Room ED for evaluation/treatment. documented in this encounter [facility] 08-23-2024 Telephone encounter Note CV PHONE Name of caller : Temo Relationship to patient : Self If not self Will need patient permission to release results or disclose health information with called documented in fyi. Patient identified by Name and Date of . ( Tmeo Wilkes, 1960). Yes Number to return call [phone] Reason for Call: Patient Question/Update: Patient asking for a call to go over MRI results. Thank you calling [facility] [place]. You will receive a return call within 48 hours ( or 2 business days if close to the weekend). If you feel that this is an urgent issue and needs immediate attention, it is recommended that you contact your primary care provider office or proceed to your nearest Urgent [facility] Emergency Room ED for evaluation/treatment. [facility] 08-12-2024 Telephone encounter Note Images are viewable in chart, patient called in to make sure they were pushed through to us. I told him to expect a call from our office with further instructions after review by team. Received imaging report. Scanned in chart. [facility] 08-10-2024 Telephone encounter Note Called [facility], requested MRA from 08/01 be pushed through. [facility] 08-06-2024 Telephone encounter Note MRA head results received from [facility]. and scanned in chart [facility] 07-19-2024 Telephone encounter Note MRA orders pended to Endo NIKKY scheduled [facility] 07-19-2024 Miscellaneous Notes MRA orders pended to Endo NIKKY scheduled CV PHONE Name of caller : Temo Relationship to patient : Self If not self Will need patient permission to release results or disclose health information with called documented in fyi. Patient identified by Name and Date of . ( Temo Wilkes, 1960). Yes Number to return call [phone] Reason for Call: Patient Question/Update: Patient calling asking for MRI order to be put in so he can schedule upcoming 2 year follow up appointment. Thank you calling [facility]. You will receive a return call within 48 hours ( or 2 business days if close to the weekend). If you feel that this is an urgent issue and needs immediate attention, it is recommended that you contact your primary care provider office or proceed to your nearest Urgent Care Center [facility] Emergency Room ED for evaluation/treatment. documented in this encounter [facility] 07-19-2024 Telephone encounter Note CV PHONE Name of caller : Temo Relationship to patient : Self If not self Will need patient permission to release results or disclose health information with called documented in fyi. Patient identified by Name and Date of . ( Temo Wilkes, 1960). Yes Number to return call [phone] Reason for Call: Patient Question/Update: Patient calling asking for MRI order to be put in so he can schedule upcoming 2 year follow up appointment. Thank you calling [facility]. You will receive a return call within 48 hours ( or 2 business days if close to the weekend). If you feel that this is an urgent issue and needs immediate attention, it is recommended that you contact your primary care provider office or proceed to your nearest Urgent Care Center of Emergency Room ED for evaluation/treatment. [facility] 12-05-2023 Note [facility] Medical Records Department [address] [place] [address] History Physical Exam 12/05/23719 MR#: [id number] Acct: [id number] Name: TEMO WILKES Rep #: [id number] : 1960 63 From: Luis Valladares MD PCP: NEREYDA MajanoC [place] [place] [id number] HPI - General General Date of Service: 12/05/23 Chief Complaint: Prostate cancer HPI Narrative TEMO WILKES, is a 63 M who presents for a radical prostatectomy and total pelvic lymph node dissection [facility] Medical History Wears glasses Diabetes Blood disorder Fatty liver High cholesterol Injury of head and neck Dietary restriction History of GI bleed Former smoker Aneurysm History of echocardiogram Cardiology follow-up encounter Hx of colonic polyp Leukocytosis Blood in stool Cough Screening PSA (prostate specific antigen) Osteoarthritis Rheumatoid arthritis Groin abscess Back pain History of seizures as a child Right trigeminal neuralgia Lipoma of forehead Mass of face Trevor Barrett syndrome (geniculate herpes zoster) Rheumatoid arthritis Nonrheumatic mitral (valve) insufficiency History of TIA (transient ischemic attack) Essential (primary) hypertension Type II diabetes mellitus Stroke Pneumonia Hyperlipidemia Home Medications ???Medication ???Instructions ???Recorded ???Last Taken ???Type blood sugar diagnostic (FreeStyle #100 ea 09/09/18 Unknown Rx Lite Strips) blood-glucose meter (FreeStyle #1 ea 09/09/18 Unknown Rx Lite Meter kit) lancets 28 gauge (FreeStyle #200 ea 09/09/18 Unknown Rx Lancets) hydroxychloroquine 200 mg tablet 400 mg PO DAILY 10/23/21 12/04/23 History aspirin 81 mg chewable tablet 81 mg PO BREAKFAST 30 days #30 tabs 06/04/22 11/23/23 Rx amlodipine 5 mg tablet 5 mg PO DAILY #90 tabs 06/12/22 12/05/23 05:30 Rx atorvastatin 80 mg tablet (Lipitor) 80 mg PO DAILY cholesterol #90 tabs 06/12/22 12/04/23 Rx dapagliflozin propanediol 10 mg 10 mg PO QAM #90 tabs 06/12/22 12/04/23 Rx tablet (Farxiga) losartan 25 mg tablet 37.5 mg (1.5 x 25 mg) PO DAILY 06/12/22 12/05/23 Rx blood pressure 3 months #135 tabs blood pressure monitor (Blood #1 ea 07/02/22 Unknown Rx Pressure Kit) clopidogrel 75 mg tablet (Plavix) 75 mg PO DAILY #30 tabs 07/09/22 11/23/23 Rx fenofibrate 54 mg tablet 54 mg PO DAILY #90 tabs 08/20/22 06/11/23 Rx tirzepatide 7.5 mg/0.5 mL 7.5 mg subcut QWEEK 05/26/23 11/23/23 History subcutaneous pen injector (Kiya) metoprolol tartrate 25 mg tablet 12.5 mg (1/2 x 25 mg) PO BID #30 10/30/23 12/05/23 Rx tabs Allergy/AdvReac Type Severity Reaction Status Date / Time everardo seed Allergy Severe Anaphylaxis Verified 12/05/23 06:15 pneumococcal vaccine (From Allergy Intermediate Rash Verified 12/05/23 06:15 Pneumovax 23) Swelling Family History Sister Diabetes Hypertension High cholesterol blood clots Cardiovascular disease Brother Myocardial infarction High cholesterol Heart disease TIA (transient ischemic attack) Cardiovascular disease Mother Myocardial infarction Hypertension Arthritis History of blood transfusion Heart disease Kidney disease Cardiovascular disease Father High cholesterol CVA (cerebral vascular accident) blood clots Cardiovascular disease Grandmother CVA (cerebral vascular accident) Surgical History Hx of colonoscopy History of excision of lesion History of tonsillectomy History of lymphoid or hematologic neoplasm History of appendectomy History of splenectomy Social History housing: house current occupational status: employed 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 @ [employer] Smoking Status: Former smoker Tobacco: How many years used: Electronic Cigarette Use: not used how long ago did patient quit smoking: quit 1994 second hand exposure: Yes (Smoked in the home ) alcohol intake: former year quit: 1994 substance use type: does not use what type of physical activity do you participate in: walking frequency: daily mellisa/faith: Restorationism seatbelt use: always additional social history: does take aspirin does take ibuprofen Vital Signs Vital Signs Vital Signs: 12/05/23 06:16 12/05/23 06:16 12/05/23 06:43 Temperature 96.9 F L 96.9 F L Temperature Source Temporal Pulse Rate 77 77 Respiratory Rate 16 16 Respiratory Pattern Normal Blood Pressure 144/71 H 144/71 H Blood Pressure Mean 95 Blood Pressure Source Monitor Blood Pressure Position Semi-Fowlers Blood Pressure Location Right Arm Pulse Ox 100 100 Oxygen Delivery Method Room Air Weight (more content not included)... [facility] 11-05-2023 Telephone encounter Note Completed Docusigned Surgical Clearance form from [facility] was faxed to [phone] and scanned into chart [facility] Work Phone: 11-05-2023 Miscellaneous Notes Completed Docusigned Surgical Clearance form from [facility] was faxed to [phone] and scanned into chart Received fax from [facility]-Surgical Clearance Form / Original scanned into chart-copy sent via [employer] to nikky provider for completion CV PHONE Name of caller : Temo Relationship to patient : Self If not self Will need patient permission to release results or disclose health information with called documented in . Patient identified by Name and Date of . ( Temo Wilkes, 1960). Yes Number to return call [phone] Reason for Call: Patient Update: patient states he found out 3 weeks ago he has prostate cancer and has to have surgery, patient states he will have Dr. Valladares fax over medical clearance form. Thank you calling [facility]. You will receive a return call within 48 hours ( or 2 business days if close to the weekend). If you feel that this is an urgent issue and needs immediate attention, it is recommended that you contact your primary care provider office or proceed to your nearest Urgent Care Center of Emergency Room ED for evaluation/treatment. documented in this encounter [facility] 11-04-2023 Telephone encounter Note Received fax from [facility]-Surgical Clearance Form / Original scanned into chart-copy sent via [employer] to nikky provider for completion [facility] 10-29-2023 Telephone encounter Note CV PHONE Name of caller : Temo Relationship to patient : Self If not self Will need patient permission to release results or disclose health information with called documented in . Patient identified by Name and Date of . ( Temo Wilkes, 1960). Yes Number to return call [phone] Reason for Call: Patient Update: patient states he found out 3 weeks ago he has prostate cancer and has to have surgery, patient states he will have Dr. Valladares fax over medical clearance form. Thank you calling [facility]. You will receive a return call within 48 hours ( or 2 business days if close to the weekend). If you feel that this is an urgent issue and needs immediate attention, it is recommended that you contact your primary care provider office or proceed to your nearest Urgent Care Center of Emergency Room ED for evaluation/treatment. 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 Bilateral high-frequency sensorineural hearing loss Plan: I had a long conversation with Mr. Wilkes today regarding the management of internal auditory canal lesion. Based upon Mr. 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 In independently reviewing the images it seems that the labyrinthine as well as perigeniculate segments of the facial nerve on the right side enhance to a greater degree than the contralateral side. We discussed management options which include observation, radiation and surgery. At this time due to its size and the possibility that this is a facial nerve lesion I do not recommend any intervention. We discussed obtaining a repeat MRI in approximately 6 months. We did discuss role of radiation is stereotactic radiation in a single fraction. We discussed the risks of worsening hearing loss should he decide to go this route. We would only decide to move forward with radiation should the tumor demonstrate growth. Finally, I counseled against surgical resection at this time. We did not discuss surgical approaches due to the size of lesion and the likelihood that this represented a facial schwannoma. Discussed that resources are available on the acoustic neuroma Association website. We discussed the role of amplification to treat bilateral high-frequency sensorineural hearing loss. He does not report diminished function as of yet. He would like to hold off on hearing aid evaluation at this time. We will see him back in 6 months with a repeat MRI with and without contrast. We will obtain a hearing test at that time documented in this encounter [facility] 12-02-2022 History of Presen t illness Narrative Neurotology Clinic - New Patient Visit The internist medical doctor md and/or scribe for this encounter is MD Kaleb Temo Wilkes is a 62 year old male who is referred by Jase Gibson AP* for: Chief Complaint: Hearing loss HPI: Temo Wilkes is a 62 year old who: Says that he's been experiencing spells in which his tongue starts to move, his face becomes numb. He was diagnosed with mini seizures. As a child he suffered from petite mal seizures. During workup for this he underwent MRI. Spells include altered sensation to this side of his face. Hearing loss: Reports minor issues with hearing in general. He hasn't noticed that right sided hearing is worse than left side. He can hear the telephone on both sides without difficulty. Previously suffered from right sided facial palsy 2019. 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 Drainage: No Tinnitus: Seldom Aural fullness: No Otalgia: No Vertigo: No Facial palsy: as above. Head trauma: NO Meningitis: No Temporal bone fracture: No Prior Otologic surgery: No History of chronic or recurrent otitis media: No Family History of Hearing loss or METAPHYSICIAN neoplasm: Sister and Brother started in their 40s. Past Medical History: He has no past medical history on file. HTN Diabetes: A1C: 8.1% Does not take insulin. Oral meds only. HLD Brain aneurysm Any history of cancer: No Any history of sleep apnea/CPAP use: No Past Surgical History: Prior ear/skull surgery or head and neck surgery: Splenectomy, Appendectomy Social History: He reports that he quit smoking about 28 years ago. His smoking use included cigarettes. He has never used smokeless tobacco. He reports that he does not currently use alcohol. 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 Pertinent findings include: See nurse intake for vitals Ears: Right ear - EAC clear, TM intact no effusion or retraction Left ear - EAC clear, TM intact no effusion or retraction Tuning Crane Rt Lt 512 AC>BC AC>BC Mosher: lateralizes to Midline Neuro - Cranial Nerves: CN V - intact Right CN 7 - HB 1/6 Left CN 7 - HB 1/6 No dysphonia or dysarthria Shoulder and/or SCM strength normal Constitutional: Well appearing, typically developed, no acute distress Eyes: extra-ocular muscles intact, sclera white, pupils grossly symmetric Lymphatic: no visible cervical lymphadenopathy Respiratory: unlabored breathing with no grossly audible stridor or wheezing Skin: no obvious skin lesions of visible skin of face, neck PROCEDURE NOTE: Otomicroscopy A microscope was used to evaluate the ears. Micro-instruments (curettes and/or suction) were used to clean the ear canal and obtain a clear view of the tympanic membranes. All relevant findings are detailed in the Physical Exam findings as listed above. The patient tolerated the procedure well and there were no complications. Audiogram (personally reviewed and interpreted): A screenshot of the audiogram from November 08, 2022 is included if available electronically at the time of the visit. Bilateral mild sloping to moderately severe sensorineural hearing loss with asymmetry present at 4K and 6K. Right-sided SRT 15; word recognition score 100% at 55 Left-sided SRT 15 word recognition score 92% at 55. Imaging (personally reviewed and interpreted): MRI from August 21, 2022 reviewed Interpretation: There is a approximately 4 mm enhancing lesion of the lateral aspect of the internal auditory canal on the right side. The facial nerve appears slightly more prominent on the right side than the left side. Specifically coronal series #10 image 91 of 185 demonstrates asymmetric enhancement of the Nayan geniculate and labyrinth and second portions of the facial nerve. 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 Bilateral high-frequency sensorineural hearing loss Plan: I had a long conversation with Mr. Wilkes today regarding the management of internal auditory canal lesion. Based upon Mr. 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 In independently reviewing the images it seems that the labyrinthine as well as perigeniculate segments of the facial nerve on the right side enhance to a greater degree than the contralateral side. We discussed management options which include observation, radiation and surgery. At this time due to its size and the possibility that this is a facial nerve lesion I do not recommend any intervention. We discussed obtaining a repeat MRI in approximately 6 months. We did discuss role of radiation is stereotactic radiation in a single fraction. We discussed the risks of worsening hearing loss should he decide to go this route. We would only decide to move forward with radiation should the tumor demonstrate growth. Finally, I counseled against surgical resection at this time. We did not discuss surgical approaches due to the size of lesion and the likelihood that this represented a facial schwannoma. Discussed that resources are available on the acoustic neuroma Association website. We discussed the role of amplification to treat bilateral high-frequency sensorineural hearing loss. He does not report diminished function as of yet. He would like to hold off on hearing aid evaluation at this time. We will see him back in 6 months with a repeat MRI with and without contrast. We will obtain a hearing test at that time Arcenio Manuel III, MD Medical Decision Making: Problems: Low: Stable chronic illness Moderate: New problem with uncertain prognosis Data: Unique test result(s) reviewed: 2 Independent interpretation of test from other physician/QHCP Medical Decision Making Level: 4 - Moderate documented in this encounter [facility] 11-29-2022 Discharge summary Note Date/Time November 29, 2022 7:54pm [facility] Medical Records Department [address] [place] [address] Emergency Department Summary 11/29/22 MR#: [id number] Acct: [id number] Name: TEMO WILKES Rep #:[id number] : 1960 62 From: Armani White MD PCP: Dr. Iftikhar Carlos MD Status:R EG ER Location: ED HPI HPI - URI History of Present Illness Chief Complaint: Shortness of Breath Detail of Chief Complaint: Shortness of breath, productive cough of yellow-greensputum, rhinorrhea, w Informant: patient Onset/Context/Timing Onset: Weeks (On side of illness 3 weeks ago) Context: Sudden Onset Timing: Continuous and Waxes and wanes Quality: Upper respiratory tract infectious symptoms with wheezing and productive co Location: Upper respiratory Current Severity: Mild Maximum Severity: Severe Worsened by: Not Worsened By Swallowing, Eating Solids or Drinking Liquids Relieved by: Not Relieved By Tylenol or NSAIDs Associated Symptoms Associated Symptoms: Positive for Nasal Congestion, Shortness of Breath and Productive Cough; Negative for Headache, Sinus Pressure, Myalgias, Nausea, Vomiting, Diarrhea, Chest Pain, Nonproductive cough or Hemoptysis Narrative Narrative: Patient 62-year-old male who presents with upper respiratory symptoms started 3 weeks ago. He has gotten worse. He is wheezing. He has no history of asthma, COPD or childhood asthma. He quit smoking in 1994. He denies fever or chills. Denies night sweats. He denies headache. He denies ocular, visual or auditory symptoms. He does endorse congestion and sore throat initially. He now has a productive cough of yellow to green sputum. He does endorse dyspnea on exertion. He denies orthopnea or PND. Denies chest discomfort. Denies leg pain, swelling ration. Patient earlier this month was seen at urgent care and had a negative COVID test. Prior similar symptoms: No Recent Illness/Hospitalization: Yes ROS [facility] ED Constitutional Constitutional ED: Denies chills, fever(s), subjective or sweats Eyes Eyes: Denies blurry vision, change in vision or diplopia ENT ENT ED: Reports sore throat; Denies ear pain or rhinorrhea Cardiovascular Cardiovascular: Denies chest pain, orthopnea, palpitations or paroxysmal nocturnal dyspnea Respiratory/Chest Respiratory/Chest: Reports cough, dyspnea, dyspnea on exertion and sputum; Denies orthopnea or paroxysmal nocturnal dyspnea Gastrointestinal Gastrointestinal: Denies abdominal pain, nausea or vomiting Genitourinary Genitourinary ED: Denies dysuria, hematuria or urinary frequency Musculoskeletal Musculoskeletal: Denies arthralgias, back pain, myalgias or neck pain Integumentary Denies rash Neurologic Neurologic: Denies headache(s), paresthesias or weakness Endocrine Endocrinology: Denies cold intolerance or heat intolerance Hematologic/Lymphatic Hematologic/Lymphatic: Denies easy bleeding or easy bruising [facility] Medical History Allergies Back pain Blood in stool Cough COVID-19 Essential (primary) hypertension Groin abscess History of blood transfusion History of seizures as a child History of TIA (transient ischemic attack) Hyperlipidemia Leukocytosis Lipoma of forehead Mass of face Nonrheumatic mitral (valve) insufficiency Osteoarthritis Pneumonia [place] Barrett syndrome (geniculate herpes zoster) Rheumatoid arthritis Rheumatoid arthritis Right trigeminal neuralgia Screening PSA (prostate specific antigen) Stroke Type II diabetes mellitus Home Medications blood sugar diagnostic (FreeStyle Lite Strips) #100 ea 09/09/18 [Rx Last Taken Unknown] blood-glucose meter (FreeStyle Lite Meter kit) #1 ea 09/09/18 [Rx Last Taken Unknown] lancets 28 gauge (FreeStyle Lancets) #200 ea 09/09/18 [Rx Last Taken Unknown] hydroxychloroquine 200 mg tablet 400 mg PO DAILY 10/23/21 [History Last Taken Unknown] aspirin 81 mg chewable tablet 81 mg PO BREAKFAST 30 days #30 tabs 06/04/22 [Rx Last Taken Unknown] amlodipine 5 mg tablet 5 mg PO DAILY #90 tabs 06/12/22 [Rx Last Taken Unknown] atorvastatin 80 mg tablet (Lipitor) 80 mg PO DAILY cholesterol #90 tabs 06/12/22[Rx Last Taken Unknown] dapagliflozin propanediol 10 mg tablet (Farxiga) 10 mg PO QAM #90 tabs 06/12/22 [Rx Last Taken Unknown] losartan 25 mg tablet 37.5 mg (1.5 x 25 mg) PO DAILY blood pressure 3 months #135 tabs 06/12/22 [Rx Last Taken Unknown] metformin 1,000 mg tablet 1,000 mg PO BID diabetes 3 months #180 tabs 06/12/22 [Rx Last Taken Unknown] metoprolol tartrate 25 mg tablet 12.5 mg (1/2 x 25 mg) PO BID #90 tabs 06/12/22 [Rx Last Taken Unknown] blood pressure monitor (Blood Pressure Kit) #1 ea 07/02/22 [Rx Last Taken Unknown] clopidogrel 75 mg tablet (Plavix) 75 mg PO DAILY #30 tabs 07/09/22 [Rx Last Taken Unknown] fenofibrate 54 mg tablet 54 mg PO DAILY #90 tabs 08/20/22 [Rx Last Taken Unknown] glimepiride 4 mg tablet 6 mg (1.5 x 4 mg) PO QAM diabetes #90 tabs 09/16/22 [Rx Last Taken Unknown] oxycodone 5 mg capsule 5 mg PO Q6H PRN pain 4 days #20 caps 10/23/22 [Rx Last Taken Unknown] prednisone 20 mg tablet 40 mg (2 x 20 mg) PO DAILY #5 tabs 10/23/22 [Rx Last Taken Unknown] albuterol sulfate 90 mcg/actuation aerosol inhaler (Ventolin HFA) 2 puff inhalation Q4H PRN PRN Wheezing ##1 11/29/22 [Rx Last Taken Unknown] doxycycline monohydrate 100 mg capsule 100 mg PO BID #13 CAPSULES 11/29/22 [Rx Last Taken Unknown] prednisone 20 mg tablet 60 mg (3 x 20 mg) PO DAILY #12 TABLETS 11/29/22 [Rx Last Taken Unknown] Allergy/AdvReac Type Severity Reaction Status Date / Time pneumococcal vaccine Allergy Intermediate Rash & Verified 11/29/22 18:19 [From Pneumovax 23] Swelling everardo seed Allergy Rash Verified 11/29/22 18:19 Family History Sister Diabetes Hypertension High cholesterol blood clots Cardiovascular disease Brother Myocardial infarction High cholesterol Heart disease TIA (transient ischemic attack) Cardiovascular disease Mother Myocardial infarction Hypertension Arthritis History of blood transfusion Heart disease Kidney disease Cardiovascular disease Father High cholesterol CVA (cerebral vascular accident) blood clots Cardiovascular disease Grandmother CVA (cerebral vascular accident) Surgical History History of appendectomy History of excision of lesion History of lymphoid or hematologic neoplasm History of splenectomy History of tonsillectomy Social History housing: house current occupational status: employed 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 @ [employer] Smoking Status: Never smoker Tobacco: How many years used: Electronic Cigarette Use: not used how long ago did patient quit smoking: quit 1994 second hand exposure: Yes (Smoked in the home ) alcohol intake: former year quit: 1994 substance use type: does not use what type of physical activity do you participate in: walking frequency: daily mellisa/faith: Restorationism seatbelt use: always additional social history: does take aspirin does take ibuprofen EXAM Physical Exam Const Vital Signs: 11/29/22 18:19 11/29/22 20:00 11/29/22 20:53 Temperature 96.8 F L Temperature Source Temporal Pulse Rate 102 H 88 Respiratory Rate 20 H 16 Respiratory Effort Respiratory Pattern Normal Blood Pressure 149/71 H Blood Pressure Mean 97 Pulse Ox 96 96 Oxygen Delivery Method Room Air Room Air 11/29/22 20:53 11/29/22 20:53 Temperature Temperature Source Pulse Rate Respiratory Rate 20 H Respiratory Effort Short of Breath Respiratory Pattern Blood Pressure Blood Pressure Mean Pulse Ox 96 Oxygen Delivery Method Room Air Positive well nourished and well developed General Appearance ED: well developed and NAD; Negative for cyanotic, diaphoretic or pallor HEENT Reports moist mucous membranes normocephalic and atraumatic Face and Sinus: Negative for sinus tenderness Throat: posterior oropharynx normal Eyes PERRL and EOMs intact bilaterally General Eye ED: Negative for pale conjunctiva or scleral icterus Neck no lymphadenopathy, supple, no meningeal signs and no JVD Resp normal respiratory effort and No clear to auscultation bilaterally Resp Narrative: Patient has egophony posteriorly right lower lobe. There is also increased vocal fremitus. Auscultation: rales right lower and left base and wheezes expiratory wheezes, scattered wheezes and throughout Cardio S1 normal heart sound, S2 normal heart sound and no murmurs Rate: tachycardic Rhythm: regular rhythm GI non-tender and non-distended Palpation: soft Back/Spine no CVA tenderness Extremity normal to inspection and full ROM General Extremety ED: Negative for cyanosis or tenderness General Extremity: Negative for cyanosis Neuro oriented x3, CN's II-XII intact bilaterally and no sensory deficits noted Sensorium / Orientation: alert Psych mental status grossly normal Skin General Skin Exam: Negative for jaundice or pallor Lesions: no lesions Rashes: no rashes MDM MDM MDM Narrative Medical decision making narrative: Nurse protocol orders were initiated. Patient's prior records were reviewed. Patient has chronic elevation of his white count. Patient's symptoms consistentwith an upper restaurant infection however with him having symptoms now for 3 weeks yellow-green sputum and wheezing this may represent pneumonia, chronic bronchitis. Chest x-ray appropriate blood work was ordered. He was treated with prednisone and albuterol x3. History & Record Review Additional record(s) reviewed:: Prior ED visit and Prior labs Lab Data Attestation: I reviewed the patient's lab results. Lab results narrative: White count is elevated without a shift. Patient's prior blood counts were all elevated. Basic metabolic panel is remarkable glucose of 142 with a normal CO2 and anion gap. Labs: Laboratory Results - last 24 hr 11/29/22 19:16 WBC 20.1 H RBC 4.07 L Hgb 12.7 L Hct 37.1 L MCV 91.2 MCH 31.2 MCHC 34.2 RDW Std Deviation 44.1 H RDW Coeff of Linh 13.2 Plt Count 505 H MPV 10.3 Immature Gran % (Auto) 0.300 Neut % (Auto) 53.5 Lymph % (Auto) 29.6 Burnet % (Auto) 11.7 H Eos % (Auto) 4.2 Baso % (Auto) 0.7 Absolute Neuts (auto) 10.8 H Absolute Lymphs (auto) 5.96 H Nucleated RBC % 0 Differential Comment SCANNED Diff Path Review May foll Sodium 139 Potassium 3.9 Chloride 108 H Carbon Dioxide 27.0 Anion Gap 4 L BUN 16 Creatinine 1.02 Estim Creat Clear Calc 76.05 Est GFR (MDRD) Af Amer 95 Est GFR (MDRD) Non-Af 79 BUN/Creatinine Ratio 15.7 Glucose 142 H Calcium 9.2 Radiography Chest X-Ray - ED: 2 View (Present the plate reviewed interpreted by me at 1959 as negative. Surgical clips noted from cholecystectomy. Cardiac silhouette andsize normal. Lung parenchyma is normal. Osseous structures are unremarkable. Perihilar region is normal.) Diagnostic Testing: Clinical Impression(s) from Imaging Studies Chest X-Ray 11/29/22 19:50 IMPRESSION: No acute cardiopulmonary pathology Electronically Signed: Alex Pruitt MD at 20:03 EDT Reading Location ID and State: [facility] / [place] Tel , Service support , Treatment and Re-Evaluation Narrative: Patient was reassessed at 1930. He still has some wheezing. He looks much better. He reports he feels much better. Plan is to discharge prescription forantibiotic, albuterol inhaler and prednisone. Discharge Plan Triage Chief Complaint: Shortness of Breath Other Complaint: General Illness ED Provider: Armani White Dx/Rx/DC Orders Clinical Impression: Bronchitis, purulent, chronic, Type II diabetes mellitus, Essential (primary) hypertension, Hyperlipidemia, Acute bronchospasm, Sinus tachycardia Instructions: ED Bronchitis with Wheezing (Adult) Prescriptions: New doxycycline monohydrate 100 mg capsule 100 mg PO BID Qty: 13 0RF albuterol sulfate [Ventolin HFA] 90 mcg/actuation HFA aerosol inhaler 2 puff inhalation Q4H PRN PRN (Reason: Wheezing) Qty: 1 0RF prednisone 20 mg tablet 60 mg PO DAILY Qty: 12 0RF No Action (DME) FreeStyle Lite Strips Strip See Rx Instructions .ROUTE .MEDSUPPLY Qty: 100 3RF Rx Instructions: check blood glucose daily for type 2 DM (DME) blood-glucose meter [FreeStyle Lite Meter] Kit See Rx Instructions .ROUTE .MEDSUPPLY Qty: 1 0RF Rx Instructions: As directed, check blood glucose daily for type 2 DM (DME) lancets [FreeStyle Lancets] 28 gauge misc See Rx Instructions .ROUTE .MEDSUPPLY Qty: 200 3RF Rx Instructions: check blood glucose daily for type 2 DM hydroxychloroquine 200 mg tablet 400 mg PO DAILY clopidogrel [Plavix] 75 mg tablet 75 mg PO DAILY Qty: 30 5RF amlodipine 5 mg tablet 5 mg PO DAILY Qty: 90 3RF atorvastatin [Lipitor] 80 mg tablet 80 mg PO DAILY Qty: 90 3RF Farxiga 10 mg tablet 10 mg PO QAM Qty: 90 3RF losartan 25 mg tablet 37.5 mg PO DAILY 90 Days Qty: 135 3RF metformin 1,000 mg tablet 1,000 mg PO BID 90 Days Qty: 180 3RF metoprolol tartrate 25 mg tablet 12.5 mg PO BID Qty: 90 3RF glimepiride 4 mg tablet 6 mg PO QAM Qty: 90 3RF aspirin 81 mg Tablet,Chewable 81 mg PO BREAKFAST 30 Days Qty: 30 0RF prednisone 20 mg tablet 40 mg PO DAILY Qty: 5 0RF oxycodone 5 mg capsule 5 mg PO Q6H PRN (Reason: pain) 4 Days Qty: 20 0RF (DME) blood pressure monitor [Blood Pressure Kit] Kit See Rx Instructions .ROUTE .MEDSUPPLY Qty: 1 0RF Rx Instructions: Check blood pressure daily for hypertension I10 fenofibrate 54 mg tablet 54 mg PO DAILY Qty: 90 3RF Primary Care Provider: Iftikhar Carlos Referrals: Iftikhar Carlos MD [Primary Care Provider] - 3-5 Days if not improving Activity Restrictions/Additional Instructions: 1. Take antibiotics until gone 2. 2 puffs of inhaler every 2-4 hours while awake for the next 2 to 3 days thenevery 4-6 hours as needed for wheezing 3. Take prednisone until gone Disposition Disposition: Home, Self Care What to do if you have Problems For any increased pain, shortness of breath, bleeding, nausea or vomiting, chestpain, or any unexpected problems, contact your Primary Care Provider. Call [facility] ([phone]) or report to the closest Emergency Room. Call 911 if necessary. 11/29/222135 <Electronically signed by Armani White MD> Cosigner Signature (if applicable): CC: Dr. Iftikhar Carlos MD ~ Signed [facility] Work Phone: 1(220) 721-628809-22-2023 Hospital Discharge instructions Additional Instructions 1. Take antibiotics until gone 2. 2 puffs of inhaler every 2-4 hours while awake for the next 2 to 3 days then every 4-6 hours as needed for wheezing 3. [facility]: 1(171) 853-149409-01-2023 History of Present illness Narrative* Gogo Kim, AUD - 11/08/2022 7:52 AM EDT [facility] [place] AUDIOLOGIC EVALUATION REPORT Name: Temo Wilkes [facility]#: [id number] Date of Service: 11/08/2022 Date of : 1960 Age: [age] year old Referred by: OSCAR MOSQUERA MD (Inactive) Referred for: Evaluation of the cause of disorder of hearing, tinnitus, or balance. Referral documented: In an order in [facility] Patient's major complaints: Hearing loss: decreased hearing bilaterally. 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 Family history of hearing loss: brother and sister have hearing loss (aging) Other concerns: enhancing lesion noted on right IAC Presumably mini seizures in June 2022. - never lost conciousness but could not speak and was perspiring. 3mm Brain Aneursym noted on MRI Temo Wilkes was seen for an initial audiologic evaluation. See [facility] Audiogram for additional reported history and symptoms. Risk of Falls Documentation for over 65 years old: Does not apply IMPRESSIONS RIGHT EAR: Sensorineural hearing loss LEFT EAR: Sensorineural hearing loss AUDIOLOGIC EVALUATION Following is a brief interpretation of the obtained findings from the audiologic evaluation. Refer to the Auditory Test Record for complete audiometric results. The patient was counseled about the test findings and appropriate audiologic recommendations were made. SUMMARY: Audiogram can be viewed under Forms/Audiology/SmartForm. OTOSCOPY RIGHT EAR: Otoscopic inspection revealed ear canal was clear with minimal amount of non-occluding cerumen present and identifiable cone of light suggesting WNL middle ear system. LEFT EAR: Otoscopic inspection revealed ear canal was clear with minimal amount of non-occluding cerumen present and identifiable cone of light suggesting WNL middle ear system. TYMPANOMETRY Description of procedure: This test is an objective evaluation of middle ear function. CPT code: 57826 RIGHT EAR: Normal ME function. LEFT EAR: Negative (-194 daPa) pressure with normal TM compliance (mobility). ACOUSTIC REFLEXES Description of procedure: This test is an objective measure of auditory and facial nerve pathways. CPT code: 17698, 85277 RIGHT EAR PROBE EAR: (ipsi right stimulus ear; contralateral left stimulus ear): Acoustic Reflex Pattern Ipsilateral acoustic reflexes were absent at 500-2000 Hz. Contralateral acoustic reflexes were absent at 500-2000 Hz. Acoustic Reflex Decay (left stimulus ear): Did not test. LEFT EAR PROBE EAR: (ipsi left stimulus ear; contralateral right stimulus ear): Acoustic Reflex Pattern Ipsilateral acoustic reflexes were absent at 500-2000 Hz. Contralateral acoustic reflexes were absent at 500-2000 Hz. Acoustic Reflex Decay (right stimulus ear):Did not test. PURE TONE AUDIOMETRY AND SPEECH TESTING Description of procedure: This test is an objective evaluation hearing sensitivity via air and boneconduction and speech recognition testing. CPT code:54635 RIGHT EAR: Hearing Sensitivity: Borderline WNL through 3000 Hz sloping mild to moderate SNHL Word Recognition Score: Excellent (90-100%). WRS is consistent with hearing sensitivity. Words werepresented at 55 dB HL approximates (45-55 dB HL) intensity level for average conversational speech.The NU-6 Ordered by Difficulty Word List (10 words) was used for testing. LEFT EAR: Hearing Sensitivity: Borderline WNL through 3000 Hz sloping moderate to moderately severe SNHL Word Recognition Score: Excellent (90-100%). WRS is consistent with hearing sensitivity. Words werepresented at 55 dB HL which approximates (45-55 dB HL) intensity level for average conversational speech. The NU-6 Ordered by Difficulty Word List (25 words) was used for testing. RECOMMENDATIONS * Continue medical follow-up with Yisel Lino MD. * The patient was counseled regarding the need to continue to monitor hearing and have regular hearing assessments. * The patient was counseled about hearing conservation and use of noise protectors. Information about hearing protection devices was provided to the patient. If custom HPDs are desired, please call [phone] to schedule an [facility] appointment. * The patient was counseled regarding effective communication strategies to enhance communication ability. * Call [phone] to schedule an appointment to assess your need for hearing aids. Request a HAE appointment. Ra Muse, [facility] Clinical and Senior Hearing Implant Feedmobile Driver copied to: Yisel Lino MD WHEELER Abbrev- iation Definition Degree of hearing sensitivity dB range WNL within normal limits WNL 0 - 20 SNHL sensorineural hearing loss Mild 20-40 CHL conductive hearing loss Moderate 40-55 MHL mixed hearing loss Moderately-Severe 55-70 WRS word recognition score Severe 70-90 ME middle ear Profound 90 + TM tympanic membrane documented [facility] this [facility] History of Present illness Narrative* Raina Esquivel APRN.CHEMICAL EQUIPMENT CONTROLLER - 10/17/2022 8:31 AM EDT [facility] Review of Records Patient: Temo Wilkes Address: [address] [place] [address] Impression: Review of records for Temo Wilkes, a 62 year old male, being referred by Jaes Green CNP [[facility]] to Any Epileptologist for further evaluation and treatment. Patient has previously diagnosed transient altered awareness. EEG from 2020 reported as normal. MRI from 2022reported lesion within the right internal auditory canal and a small ACoA aneurysm. Patient has trialed 3 AEDs. VEEG may be indicated for event characterization and diagnostic evaluation to determinebest treatment options. As he reports his last event was 2 months ago, would get a new long EEG andconsultation with an Epileptologist Summar y: Onset: 4 months ago Recent Seizure Frequency: 2 months ago Seizure Description(s) Available: Type A: Tongue will move to right side of face, sweating, confusion, cannot read, cannot understandwords, weakness, numbness in right side of face Duration: 5 minutes Current AED(s): None Previous AED(s): Phenobarbital Phenytoin Levetiracetam (took for 2 days only) PMH: T2DM, HTN, hyperlipidemia, on ASA/Plavix, petit seizure in childhood PRIOR EVALUATIONS: [place] [id number] [place] [address] EEG ([facility], 06/09/2020): This is a normal awake and drowsy EEG study, with normal posterior background rhythm (10 Hz). Therewere no epileptiform discharges, seizure patterns, or lateralizing signs. MRI brain wo/w contrast ([facility], 08/21/2022): Small 5 mm enhancing lesion within right internal auditory canal. Differential includes vestibular schwannoma or less likely leptomeningeal disease. Recommend short-term follow-up, with dedicated internal auditory canal sequences. 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 Please refer to \previous CTA for more detailed evaluation. No evidence of acute infarct, acute intracranial hemorrhage, or significant mass effect. No evidence of abnormal brain parenchymal contrast enhancement. Hypoplastic bilateral maxillary sinuses are completely opacified. Correlate with symptoms of sinusitis. NIKKY Recommendations: - Long EEG, consult with Epileptologist - Additional testing to be considered by epilepsy clinicians Signed: Raina Esquivel APRN.CHEMICAL EQUIPMENT CONTROLLER October 17, [address] Maxwell for review and recommendations. MD Recommendations (as discussed with Dr. Maxwell): - Please proceed with the above plan. documented in this [facility]07-07-2023 History of Present illness Narrative* Mary Beth Garcia PA-C - 09/13/2022 12:06 PM EDT Actionable Finding: MRI Brain completed 08/21/22 demonstrates Small 5 mm enhancing lesion within right internal auditory canal. Differential includes vestibular schwannoma or less likely leptomeningeal disease. Recommend short-term follow-up, with dedicated internal auditory canal sequences. Follow up with ENT otolaryngology scheduled. Actionable Finding addressed. Mary Beth Garcia PA-C documented in this [facility]06-14-2023 Miscellaneous Notes* Telephone Encounter - Heaven Garcia - 08/21/2022 12:22 PM EDT Images from the original note were not included. documented in this [facility]05-08-2023 Miscellaneous Notes* Telephone Encounter - Shira Purdy RN - 07/15/2022 3:44 PM EDT Spoke with patient who is fairly certain he needs to reschedule his diagnostic cerebral angiogram for Friday, 07/22. He is going to confirm with his local neurologist and call back. documented in this [facility]05-03-2023 Miscellaneous Notes* Telephone Encounter - LAURIE Werner - 07/10/2022 2:11 PM EDT OSH imaging/records pending: July 10, 2022 Called and spoke to Mady in the film room at [facility] to have images on the patient push through to the PACS System. Mady stated that she was pushing over images on the patient fromthis year through to the PACS System, and that we should receive the images shortly. PENDING: Faxed over an Authorization of NIRMALA Form to the Medical Records Department at [facility] to obtain records prior to patient's procedure. documented in this encounterD[facility]04-14-2023 History of Present illness Narrative* Randall Muñoz RN - 06/21/2022 11:04 AM EDT Patient Angiogram Instructions-[facility] [address] [place], [place] [address] Prior to Procedure - Complete Labs as ordered- CBC, BMP -If labs not completed at a [facility] please fax to: [phone] -You do not need to fast before your labs -Set-up a reliable high lift driver to bring you and take you home after your procedure. Day Before Procedure If you have not received a phone call with your report time, please call [phone]. Night Before procedure No eating any solid food after midnight - This includes gum, mints, or smoking Morning of Procedure - Do not wear any jewelry, fake nails, or makeup - If you have inhalers for a respiratory condition, please bring them with you to your appointment - Avoid applying any hair products What you should bring to the hospital: ID, Insurance Card, inhaler, CPAP or BiPAP -You may drink up to 12oz or 1 cups of water up to 2 hours prior to your scheduled arrival time. Medications - Please Take the following medications the morning of the procedure Levetiracetam 500 mg Metoprolol 25 mg ( if you take in the morning) Amlodipine 2.5 mg (if you take in the morning) -Please Hold the following medications the morning of the procedure 1.hydroxychlooquine 200 mg 2.atorvastatin (if you take in the morning) 3. Losartan (if you take in the morning) 4. Omeprazole Diabetic Medications: - DO NOT take metformin day of and one day after your procedure. Do not take morning diabetic medications - If you take rapid-acting (short acting) insulin DO NOT take it day of procedure - If you take LONG ACTING (Lantus) take 1/2 usual dose - PLEASE NOTIFY THE RADIOLOGY NURSE IF YOU ARE DIABETIC ON DAY OF PROCEDURE Procedure will be completed at desk [facility] in the [facility]. Pleasecheck in at the [facility] located in the [facility] Angiogram Details rebral Angiogram What is an angiogram? Angiography is a way to produce x-ray pictures of the insides of blood vessels. When blood vessels are blocked, narrowed, damaged, or abnormal in any way, problems including stroke may occur. Angiography helps your physician determine the source of the problem and the extent of damage to the blood vessel segments that are being examined. During the test You will be asked to change into a hospital gown.The test itself will take approximately 2 to 3 hours. Moderate sedation may be given. If an intervention (stent or coiling) is expected you will have further sedation, including the temporary placement of a breathing tube. During the angiogram, a long slender tube called a catheter is slowly and carefully threaded through the artery (most often thefemoral artery located at the top of your thigh or the radial artery located at the wrist) until its tip reaches the segment of vessel to be examined by angiography. A small amount of IV contrast is injected into the blood vessel segment through the catheter and x-rays are taken. The contrast agent enables the blood vessels to appear on the x-ray pictures. After the test Your neurological status and procedure site will be monitored for 2 to 6 hours in the post procedure area. If your femoral artery was used, it will be important for you to lay flat and keep your leg straight to reduce the risk of bleeding. If this was a diagnostic procedure you will discharged home and your doctor will call you with your results within two weeks. If you do not hear from your physician s office, please call. If you had an intervention (stent, coil, or other embolization) you will be asked to stay at the hospital. Depending on the procedure you may be sent to one of several floors: Neurological Intensive Care Unit. Discharge Instructions following Endovascular Procedures Diet Resume your usual diet Activity Refrain from strenuous or moderate exertion such as weight lifting, jogging, or running for 3-4 days. No heavy lifting >10lbs for 3 days You may resume other normal activity, we encourage moderate activity. Driving You may drive after the day of your procedure. However, if you are taking a narcotic or strong pain medication you should not drive until pain is well controlled by over the counter medications alone. Incision Care Inspect your groin or wrist daily for five days for any change in the following: color, swelling, decreased sensation, increased drainage or bruising. It is normal to have some redness/bruising and swelling in the area where the catheter was placed. These symptoms should resolve in several days. Ifyou wish, you may use a warm compress over the area for 10-15 minutes for several times per day. If you have questions: Normal business hours, please call your physician s office. Nights and weekends, you can call [phone] or and ask for the neurosurgery resident education rn for more urgent questions. If you have any signs of stroke please proceed to the closest emergency department, you may choose to notify our office afterwards. (weakness/numbness or tingling isolated to one side of body, difficulty speaking or understanding, facial droop, visual loss or double vision in one or both eyes, loss of consciousness, severe headache) Pain Control Headache and incision discomfort are normal. In most cases, the use of over the counter medications, Tylenol, is often sufficient to control this pain. Within the first few days after your procedure we advise limiting Aleve/ibuprofen as it may increase bleeding risk. Bathing There are no restrictions against taking a shower. However, we advise against taking baths for one week. Patchy hair loss is not expected but can occur. This is normal as a result of the x-ray necessary during the procedure. This is not a permanent complication. Return to Work In most cases, you may return to work 1-2 days after a diagnostic procedure or 1 week for an intervention. There are usually no work-related restrictions. Please call or MyChart your physicians's office with any questions regarding the above recommendations. Sincerely, Your Cerebrovascular Team documented in this encounterD[facility]04-10-2023 Miscellaneous Notes* Telephone Encounter - Randall Muñoz RN - 06/17/2022 9:37 AM EDT Appointment 06/[address] Rodríguez * Telephone Encounter - Araceli Joshi - 06/17/2022 9:30 AM EDT [facility]ceived [facility] - they have been uploaded into chart documented in this encounterD[facility]04-10-2023 History of Present illness Narrative* Randall Rodríguez MD - 06/17/2022 9:25 AM EDT [facility] Initial Outpatient Visit Temo Wilkes CCF#: [id number] Date of Service: 06/17/2022 Primary Care Provider: Macario Tyler, DO [address] [place] [id number] The patient was referred by Dr. Tyler for opinion regarding brain aneurysm. I will provide a written report of my findings to the referring through letter, e communication, or epic. OUTPATIENT CONSULTATION Chief complaint: incidental brain aneurysm History of present illness: Mr. Wilkes is a 61-year-old male, who presents for evaluation of an incidentally discovered brain aneurysm. The patient developed sudden onset sweating upper lip numbness and right hand numbness with garbledspeech about 2-3 weeks ago while reading in [employer]. He had to sit down, and about 10 minutes his symptoms resolved. He continued to have headache for several hours after that. He still continues to have low-grade headaches. 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 The patient reports 2 other similar events in the last 10 years, but those had no significant associated headaches, per patient. He was told that he might have had TIAs or mini seizures. He denies any other seizure-like spells. He takes blood pressure medications, but he is uncertain how well his blood pressure is controlled. He also has high cholesterol and diabetes. He does not smoke, quit in the . He had a cousin who collapsed at age 17 and , possibly of an aneurysm, but the details are not clear. There are no other family members with brain aneurysm or subarachnoid hemorrhage. He presents today with his to discuss available management options for brain aneurysms. Hypertension NA Coronary Artery Disease NA Diabetes NA Obesity NA Dyslipidemia NA Tobacco Use (Please Update Smoking History) NA Stroke NA Intracranial Aneurysm NA Past Medical History: ACTIVE PROBLEM LIST Unspecified Disease of Pancreas Past surgical history: No past surgical history on file. Allergies: Pneumovax 23 [Pneumococcal 23-Danie Ps Vaccine] Medications: Current Outpatient Medications Medication Sig hydrOXYchloroQUINE (PLAQUENIL) 200 mg tablet 2 tablets. levETIRAcetam (KEPPRA) 500 mg tablet Take by mouth. metFORMIN (GLUCOPHAGE) 1,000 mg tablet Take 1,000 mg by mouth twice daily with meals. atorvastatin (LIPITOR) 40 mg tablet Take 40 mg by mouth once daily. losartan (COZAAR) 25 mg tablet Take 25 mg by mouth once daily. glimepiride (AMARYL) 4 mg tablet Take 4 mg by mouth daily with breakfast. Omeprazole Magnesium 20 mg tablet Take 20 mg by mouth once daily. amLODIPine (NORVASC) 2.5 mg tablet Take 5 mg by mouth once daily. FARXIGA 10 mg tablet icosapent ethyl (VASCEPA) 1 gram capsule 2 cap(s) metoprolol tartrate, short acting, (LOPRESSOR) 25 mg tablet Fenofibrate (LOFIBRA) 160 mg tablet Take 160 mg by mouth once daily. (Patient not taking: Reported on 06/17/2022) linaGLIPtin (TRADJENTA) 5 mg tab Take by mouth. (Patient not taking: Reported on 06/17/2022) No current facility-administered medications for this visit. Social History Tobacco Use Smoking status: Former Types: Cigarettes Quit date: 1994 Years since quittin.2 Smokeless tobacco: Never Illicit Drug Use: no Family History: Subarachnoid hemorrhage: None Aneurysms: Yes, possibly cousin, but details are unclear Stroke: None Vascular malformations: None Other neurologic diseases: None Review of Systems Constitutional: Negative. HENT: Negative. Eyes: Negative. Respiratory: Negative. Cardiovascular: Negative. Gastrointestinal: Negative. Hematologic/Lymphatic: Negative. Musculoskeletal: Negative. Skin: Negative. Neurological: Positive for headaches. Psychiatric: Positive for anxiety. Patient Entered Questionnaires PROMIS/NeuroQoL Score Percentiles Percentiles provide an indication of how a patient's score ranks in relation to the [place] general population. > 31st percentile is within normal limits or better * < 31st percentile is at least SD worse than population, which may be clinically relevant < 16th percentile is at least 1 SD worse than population and warrants attention Depression Screening: PHQ-9 Scores: PHQ-9 Self-Harm (Item 9) Response: 0 - 9 No to Mild depression 0 - Not at all 10 - 14 Moderate depression 1 - Several Days > 15 Severe depression 2 - More than half the days 3 - Nearly every day PHYSICAL EXAMINATION BP 172/65 Pulse 63 Temp 36.4 C (97.6 F) Ht 175.3 cm (5' 9) Wt 90.3 kg (199 lb 1.6 oz) SpO2 97% BMI 29.40 kg/m General: Not in acute distress, pleasant male, well-developed, well-nourished Head: atraumatic, normocephalic Eyes: No scleral icterus, no conjunctival injection Neck: supple, no JVD Cardiovascular: Normal S1/S2, no murmurs, RRR Lungs: Clear to auscultation bilaterally Abdomen: Soft, nondistended, nontender Extremities: No edema, clubbing or cyanosis noted. Skin: No significant bruising or rash Neurological: Mental status: Alert, awake and oriented x3. Speech, language, attention span, memory and fund of knowledge are intact. Cranial nerves: Pupils equal, reactive. EOMI. Visual obando full. Normal facial sensation. No facial asymmetry. Uvula midline, symmetric palatal elevation. Symmetric shoulder shrug. Tongue midline. Motor: Normal bulk, tone and strength bilaterally. No pronator drift. Sensory: Normal to soft touch and temperature bilaterally. Coordination: No dysmetria or ataxia Reflexes: Symmetric. Gait: Walks without assistance. Romberg negative. Able to tandem walk, and walk on toes and heels. IMAGING OSH noncon CT head May 2022: No acute changes OSH CTA head May 2022: Approximately 3 mm anterior communicating aneurysm. Left vertebral origin stenosis versus artifact due to vessel turn, in my opinion. Left vertebral artery appears to end in PICA. Right vertebral origin appears patent. Labs Lab Results Component Value Date HBA1C 5.7 06/11/2002 Cholesterol, Total Date Value Ref Range Status 04/08/2003 272.0 (H) <200 mg/dL Final HDL Cholesterol Date Value Ref Range Status 04/08/2003 33 30 - 65 mg/dL Final LDL Calculated Date Value Ref Range Status 04/08/2003 <130 mg/dL Final LDL CHOLESTEROL NOT CALCULATED WHEN TRIGLYCERIDES >400MG/DL Triglyceride Date Value Ref Range Status 04/08/2003 818 (H) <150 mg/dL Final Stroke Mechanism and Scales Cerebrovascular Disease w/o Stroke Event: Unruptured Aneurysm Modified [place] Score: Score: 1 NIH Stroke Scale: LOC: 0 LOC Questions: 0 LOC Commands: 0 LOC Normal Gaze: 0 Visual [place]: 0 Facial Palsy: 0 Motor Left Arm: 0 Motor Right Arm: 0 Motor Left Le Motor Right Le Limb Ataxia: 0 Sensory: 0 Language: 0 Dysarthria: 0 Extinction/Neglect: 0 Total Daily NIHSS: 0 IMPRESSION Unruptured brain aneurysm. Discovered during work-up for transient spell with numbness and dizziness. His imaging demonstrates a small anterior communicating region aneurysm, and unrelated incidentalpossible vertebral artery origin stenosis. Discussed natural history of ruptured brain aneurysms. Talked about the risks, benefits and alternatives of conservative management versus endovascular surgical treatment. There is some uncertainty about his family history due to at a young age, but no other family members. He does not smoke. His blood pressure was slightly elevated at today's visit despite being on medications. I encouraged follow-up with PCP to further evaluate need for blood pressure medication adjustment. The patient would like to consider all options, and understands the risks and benefits of both conservative and treatment management options. We will contact him in 1-2 weeks to finalize the plan forfurther management. All questions were answered. PLAN Patient considering conservative versus treatment for anterior communicating aneurysm. See discussion above. PCP follow-up for blood pressure and vascular risk factor control Education provided Thank you very much for this consultation. Questions asked/ answered. Follow-up with results/ adherence to plan/ continued education. SIGNATURE Randall Rodríguez MD June 17, 2022 CC Macario Tyler DO [address] [facility] [address] [place] [address] documented in this encounterD[facility] Center03-29-2023 Miscellaneous Notes* Telephone Encounter - LAURIE Werner - 06/05/2022 10:39 AM EDT OSH imaging/records pending: June 05, 2022 Faxed over an authorization form to the Medical Records Department at [facility] toobtain images and medical records for our Endovascular Triage Team to review prior to scheduling anappointment. * Telephone Encounter - LAURIE Werner - 06/05/2022 10:36 AM EDT ENDOVASCULAR INTAKE Patient name: Temo Wilkes Confirm Diagnosis/RFV (Reason for Visit): Aneurysm Is this a self-referral? no, who is the referring provider : Krista Romero MD Is this a direct referral? yes Dr. Rodríguez Have you been recommended for surgery or procedure? No Are you seeking a second opinion? No. Do you have a MRI/MRA/CT/Ultrasound for this diagnosis? Yes. Type of imaging CT Brain, MRI Brain, Spinal Tap scans, name/address of facility where completed [facility]. Was there a previous surgery or procedure for this diagnosis/reason for visit? No Are there any other health history we should know about? : Seizures, Diabetes, Hypertension, Hyperlipidemia, High Cholesterol, Osteoarthritis, and Rheumatoid Arthritis. Would you prefer a virtual visit or in-person visit? In person visit documented in this encounterDiley [facility] Center03-28-[address] Romero [facility] June 04, 2022 3:27pm Note Date/Time June 04, 2022 3:2 7pm [facility] Medical Records Department [address] [place] [address] Telemedicine Confirmation Receipt 06/04/22 MR#: [id number] Acct: [id number] Name: TEMO WILKES Rep #:[id number] : 1960 61 From: Krista Romero MD PCP: Dr. Iftikhar Carlos MD Status:A DM [facility] [facility] has confirmed receipt of a request for visit. This document confirms receipt of the order initiating the consult. To find the results of the consultation, please view the patient's reports for the scanned Telemed Consult. [facility] Work Phone: 1(747) 781-780303-28-[address] Romero [facility] June 04, 2022 7:51am Note Date/Time June 04, 2022 7:5 1am [facility] Medical Records Department [address] [place] [address] Telemedicine Confirmation Receipt 06/04/22 MR#: [id number] Acct: [id number] Name: TEMO WILKES Rep #:[id number] : 1960 61 From: Krista Romero MD PCP: Dr. Iftikhar Carlos MD Status:A DM [place] [facility] has confirmed receipt of a request for visit. This document confirms receipt of the order initiating the consult. To find the results of the consultation, please view the patient's reports for the scanned Telemed Consult. [facility] Work Phone: 1(386) 376-168103-27-[address] Romero [facility] June 03, 2022 7:24pm Note Date/Time June 03, 2022 5:1 9pm [facility] Medical Records Department [address] [place] [address] Progress Note - Hospitalist 06/03/22 1717 MR#: [id number] Acct: [id number] Name: TEMO WILKES Rep #:[id number] : 1960 61 From: Krista Romero MD PCP: Dr. Iftikhar Carlos MD Status:A DM JOSÉ LUIS Location: [place] [address] 1 Reason for Visit Reason for Visit: Diagnoses Other symptoms and signs involving the musculoskeletal system (06/02/22) Subjective Subjective Feeling well today, headache has resolved, no further neurological symptoms Objective Data Objective Data Vital Signs: Vital Signs Temp Pulse Resp BP Pulse Ox O2 Del Method 98.0 F 62 16 156/71 H 97 Room Air 06/03/22 17:03 06/03/22 17:03 06/03/22 17:03 06/03/22 17:03 06/03/22 17:03 06/03/22 17:03 Oxygen Delivery Method Room Air Weight: 91.3 kg Body Mass Index (BMI) 29.7 Intake & Output: Intake and Output for Last 24 Hours 06/01/22 06/02/22 06/03/22 23:59 23:59 23:59 Intake Total 1000 / 1000 Balance 1000 / 1000 Lab / Micro Data Result Diagrams: 06/03/22 05:10 06/03/22 05:10 Labs: Laboratory Results - last 24 hr 06/02/22 16:50: Differential Comment SCANNED, Diff Path Review July06/02/22 16:50: PT 12.2, INR 0.9, APTT 30.3 06/02/22 16:50: Sodium 136, Potassium 3.9, Chloride 105, Carbon Dioxide 24.0, Anion Gap 7, BUN 19 H, Creatinine 0.94, Estim Creat Clear Calc 83.57, Est GFR (MDRD) Af Amer 106, Est GFR (MDRD) Non-Af 87, BUN/Creatinine Ratio 20.3 H, Glucose 171 H, Calcium 8.7, Troponin I High Sens 4 06/02/22 17:07: POC Glucose 159 H 06/02/22 22:29: POC Glucose 121 H 06/03/22 05:10: Sodium 137, Potassium 3.7, Chloride 106, Carbon Dioxide 24.0, Anion Gap 7, BUN 18, Creatinine 0.63 L, Estim Creat Clear Calc 124.69, Est GFR (MDRD) Af Amer 168, Est GFR (MDRD) Non-Af 139, BUN/Creatinine Ratio 28.7 H, Glucose 141 H, Calcium 9.0, Total Bilirubin 0.50, Direct Bilirubin 0.10, AST 17,ALT 23, Alkaline Phosphatase 64, Total Protein 6.7, Albumin 3.6, Globulin 3.1, Triglycerides 267 H, Cholesterol 184, LDL Cholesterol 88, VLDL Cholesterol 53 H,HDL Cholesterol 43, TSH 1.80 06/03/22 05:10: WBC 15.8 H, RBC 4.34 L, Hgb 13.5, Hct 40.5, MCV 93.3, MCH 31.1, MCHC 33.3, RDW Std Deviation 46.1 H, RDW Coeff of Linh 13.5, Plt Count 373, MPV 11.4, Immature Gran % (Auto) 0.300, Neut % (Auto) 39.3 L, Lymph % (Auto) 39.3, Burnet % (Auto) 11.5 H, Eos % (Auto) 8.8 H, Baso % (Auto) 0.8, Absolute Neuts (auto) 6.2, Absolute Lymphs (auto) 6.23 H, Nucleated RBC % 0, Differential Comment COMMENT, Diff Path Review May , Reactive Lymphocytes RARE 06/03/22 06:43: POC Glucose 144 H 06/03/22 11:42: POC Glucose 110 H Radiography Diagnostic Testing: Radiology Impression Brain CT 06/02/22 16:31 IMPRESSION: Normal unenhanced CT scan of the brain. Electronically Signed: Darrin Mata MD at 17:37 EDT Reading [facility] [place] [facility] Service support , ADDENDUM: 06/02/22 1745 IMPRESSION: Normal unenhanced CT scan of the brain. N.B. : The above Results were Read Back by Darrin Mata MD to Lyndon Winston MD, and understanding confirmed on 06/02/2022 17:38:52 (ET). Electronically Signed: Darrin Mata MD at 17:37 EDT Reading Location ID and State: [facility] / [place] , Service support , Chest X-Ray 06/02/22 17:24 IMPRESSION: Normal x-ray examination of the chest. Electronically Signed: Darrin Mata MD at 19:00 EDT Reading Location ID and State: [facility] / [place] , Service support , Head/Neck CTA 06/02/22 19:05 IMPRESSION: 3 mm anterior communicating aneurysm. Moderate stenosis origin left vertebral artery. Left vertebral artery terminates as the PICA. Electronically Signed: Darrin Mata MD at 20:51 EDT , ADDENDUM: 06/02/222105 IMPRESSION: 3 mm anterior communicating aneurysm. Moderate stenosis origin left vertebral artery. Left vertebral artery terminates as the PICA. N.B. : The above Results were Read Back by Darrin Mata MD to Nikkie No MD, and understanding confirmed on 06/02/2022 20:59:19 (ET). Electronically Signed: Darrin Mata MD at 20:51 EDT , Brain MRI 06/03/22 10:00 IMPRESSION: 1. No MR evidence for mass or acute infarct. 2. Severe chronic maxillary sinus disease. Electronically Signed: Lyndsey Sow MD at 13:12 EDT , Physical Exam Narrative General: Alert, oriented, no apparent distress HEENT: Atraumatic, normocephalic Eyes: extraocular movements grossly intact Neck: Supple Respiratory: normal respiratory effort Cardiovascular: no edema appreciated GI: nondistended Extremities: Moving all extremities Neuro: No overt focal neurological deficits Psych: Cooperative Assessment & Plan Assessment/Plan (1) Right hand weakness: PLAN: Plan #Right hand and perioral numbness -NIH 0, symptoms resolved and now presently has headache and nonfocal exam/no other complaints -Admit to tele -CT head without acute changes -CTA head and neck -MRI -NIH q4hr -asa 324 given, 81 daily, statin 80 mg -Echo w/ bubble study -PT/OT/Speech eval -Lipid panel in the a.m. -Hold BP medications to allow for permissive hypertension for 24 hours unless SBP greater than 220 or DBP greater than 120 or until stroke is ruled out -Lovenox for DVT prophylaxis -06/03: Spoke with neurologist who queries seizures and does not think these are TIAs given his history of similar presentation several times over several years and history of [place] seizures when he was younger. However with the aneurysm and the headache that he had on presentation she recommends an LP with a cell count of tube 1 and tube 4 to assess for red cells. If positive would indicate aneurysm had blood on admission and he needs transferred for inpatient vascular neurology and if negative can follow-up with vascular neurology outpatient as well as his neurologist Dr. Lozano. Additionally she has high suspicion for seizures, recommended against medication at this time and orderingof an EEG. If EEG is positive begin Keppra, if both EEG and LP are negative sherecommends aspirin 81 mg and discharging home with prescription for Keppra 500 mg twice daily that he is not supposed to take unless he has symptoms again. Ifsymptoms recur he is supposed to start the medication and call his neurologist for a long EEG. She also advised no driving at this time. Additional studies for cytology and flow cytometry with LP. EEG and LP ordered #Type 2 diabetes mellitus -Glucose checks and sliding scale insulin #DVT ppx: DC subcu Lovenox for LP, SCDs Krista Romero MD Time spent in the patient's overall evaluation,decision-making process, review of diagnostic data, adjustment of management, discussion with other providers, nursing nursing and ancillary staff involved in patient's care documentation, 30minutes Charges/Coding Visit Charges Inpatient E&M: 19893 Subs Hosp L2 06/03/221923 <Electronically signed by Krista Romero MD> Cosigner Signature (if applicable): CC: ~ Signed [facility] Work Phone: 1(643) 667-607203-27-[address] Romero [facility] June 03, 2022 1:26pm Note Date/Time June 03, 2022 1:2 7pm [facility] Medical Records Department [address] [place] [address] Telemedicine Confirmation Receipt 06/03/22 MR#: [id number] Acct: [id number] Name: TEMO WILKES Rep #:[id number] : 1960 61 From: Krista Romero MD PCP: Dr. Iftikhar Carlos MD Status:A DM [facility] [facility] has confirmed receipt of a request for visit. This document confirms receipt of the order initiating the consult. To find the results of the consultation, please view the patient's reports for the scanned Telemed Consult. [facility] Work Phone: 1(223) 684-447703-26-2023 Progress note Author Nikike No [facility] June 02, 2022 8:59pm Note Date/Time June 02, 2022 8:5 9pm [facility] Medical Records Department [address] [place] [address] Progress Note - Hospitalist 06/02/222057 MR#: [id number] Acct: [id number] Name: TEMO WILKES Rep #:[id number] : 1960 61 From: Nikkie No MD PCP: Dr. Iftikhar Carlos MD Status:A DM JOSÉ LUIS Location: [place] [address] Hospitalist Note Radiology called with results noting CTA H/N resulted with 3 mm anterior communicating aneurysm, moderate stenosis origin left vertebral artery, left vertebral artery terminates as the PICA. 06/02/222058 <Electronically signed by Nikkie No MD> Cosigner Signature (if applicable): CC: ~ Signed [facility] Work Phone: 1(590) 286-482303-26-2023 History and physical note Author Dr. Romero [facility] June 02, 2022 7:24pm Note Date/Time June 02, 2022 6:4 9pm [facility] Medical Records Department [address] [place] [address] H&P Exam - Hospitalist 06/02/22 1846 MR#: [id number] Acct: [id number] Name: TEMO WILKES Rep #:[id number] : 1960 61 From: Krista Romero MD PCP: Dr. Iftikhra Carlos MD Status:A DM JOSÉ LUIS Location: [place] [address] HPI - General General Date of Service: 06/02/22 Chief Complaint: Facial numbness and R hand weakness HPI Narrative TEMO WILKES, is a 61 M with reported history of TIAs, hypertension, type 2 diabetes mellitus, rheumatoid arthritis who presented to [facility] 06/02/2022 with numbness around his face and right hand numbness while he was at [employer] this morning. Upon presentation NIH was 0 and symptoms resolved but he did have a headache that was in the front of his head and been present for several hours. Given his risk factors and history CT head obtained with no acute abnormality and hospitalist called for TIA/stroke work-up. Evaluated patient with at bedside and he reports that he was in [employer] earlier today reading the Bible out loud and he began having difficulty with hiswords and getting them out also had numbness above his upper lip and right hand numbness up to the middle of his arm. This lasted roughly 10 minutes and then went away and has had a frontal headache since. Denies any nausea or vomiting, headache is somewhat waxed and waned and he has not tried anything for it. Onlyother symptom he endorses was a cold sweat and his reports his face was redduring the episode but these went away. Had episodes where he has had parts of his face go numb in the past last one being several years ago. When asked aboutvision he did say he might of had slight blurred vision at the very onset of symptoms but denied any persistent or recurrent symptoms. In ED white blood cell count 16 with a hemoglobin of 13. Renal function and electrolytes unremarkable, high-sensitivity troponin was 4 and chest x-ray no acute abnormalities. [facility] Medical History Allergies Back pain Cough COVID-19 Essential (primary) hypertension Groin abscess History of blood transfusion History of seizures as a child History of TIA (transient ischemic attack) Hyperlipidemia Lipoma of forehead Mass of face Nonrheumatic mitral (valve) insufficiency Osteoarthritis Pneumonia [place] Barrett syndrome (geniculate herpes zoster) Rheumatoid arthritis Rheumatoid arthritis Right trigeminal neuralgia Screening PSA (prostate specific antigen) Stroke Type II diabetes mellitus Home Medications blood sugar diagnostic (FreeStyle Lite Strips) #100 ea 09/09/18 [Rx Last Taken Unknown] blood-glucose meter (FreeStyle Lite Meter kit) #1 ea 09/09/18 [Rx Last Taken Unknown] lancets 28 gauge (FreeStyle Lancets) #200 ea 09/09/18 [Rx Last Taken Unknown] epinephrine 0.3 mg/0.3 mL injection, auto-injector 0.3 mg IM DAILY PRN allergic reaction 01/25/20 [History Last Taken Unknown] hydroxychloroquine 200 mg tablet 400 mg PO DAILY 10/23/21 [History Last Taken Unknown] meloxicam 15 mg tablet 15 mg PO DAILY 10/23/21 [History Last Taken Unknown] icosapent ethyl 1 gram capsule (Vascepa) 2 g PO BID #120 caps 01/29/22 [Rx Last Taken Unknown] amlodipine 5 mg tablet 5 mg PO DAILY #90 tabs 02/27/22 [Rx Last Taken Unknown] glimepiride 4 mg tablet 4 mg PO QAM #90 tabs 02/27/22 [Rx Last Taken Unknown] losartan 25 mg tablet 37.5 mg PO DAILY 3 months #135 tabs 02/27/22 [Rx Last Taken Unknown] metformin 1,000 mg tablet 1,000 mg PO BID #180 tabs 02/27/22 [Rx Last Taken Unknown] metoprolol tartrate 25 mg tablet 12.5 mg PO BID #90 tabs 02/27/22 [Rx Last Taken Unknown] albuterol sulfate 90 mcg/actuation aerosol inhaler (ProAir HFA) 1 - 2 puff inhalation Q6H PRN shortness of breath or wheezing #8.5 grams 03/26/22 [Rx Last Taken Unknown] atorvastatin 80 mg tablet (Lipitor) 80 mg PO DAILY 06/02/22 [History Last Taken Unknown] Allergy/AdvReac Type Severity Reaction Status Date / Time pneumococcal vaccine Allergy Intermediate Rash & Verified 06/02/22 16:18 [From Pneumovax ] Swelling everardo seed Allergy Rash Verified 06/02/22 16:18 Family History Sister Diabetes Hypertension High cholesterol blood clots Cardiovascular disease Brother Myocardial infarction High cholesterol Heart disease TIA (transient ischemic attack) Cardiovascular disease Mother Myocardial infarction Hypertension Arthritis History of blood transfusion Heart disease Kidney disease Cardiovascular disease Father High cholesterol CVA (cerebral vascular accident) blood clots Cardiovascular disease Grandmother CVA (cerebral vascular accident) Surgical History History of appendectomy History of excision of lesion History of lymphoid or hematologic neoplasm History of splenectomy History of tonsillectomy Social History Smoking Status: Never smoker Tobacco: How many years used: 18 Electronic Cigarette Use: not used how long ago did patient quit smoking: quit 1994 second hand exposure: Yes (Smoked in the home ) alcohol intake: former year quit: 1994 substance use type: does not use what type of physical activity do you participate in: walking frequency: daily additional social history: does take aspirin does take ibuprofen ROS ROS Narrative General: Denies fever/chills HENT: Frontal headache, denies stuffy nose, denies sore throat EYES: Denies changes in vision Resp: Denies cough, denies shortness of breath Cardiac: Denies chest pain GI: Denies abdominal pain, denies changes in bowel, denies nausea/vomiting : Denies changes in urination Extremity: Denies swelling MSK: Denies weakness Neuro: Denies any further numbness or tingling, had right hand numbness up to mid arm and numbness above upper lip and a mustache distribution Heme: Denies any bleeding or bruising Skin: Denies rashes Psychiatric: No complaints voiced Vital Signs Vital Signs Vital Signs: 06/02/22 16:16 06/02/22 17:12 06/02/22 17:35 Temperature 97.2 F L Temperature Source Temporal Pulse Rate 80 71 Respiratory Rate 18 15 Blood Pressure 166/66 H 171/72 H Blood Pressure Mean 99 105 Pulse Ox 96 97 96 Oxygen Delivery Method Room Air Room Air Room Air Weight Weight: 92.9 kg Body Mass Index (BMI) 30.2 Physical Exam Narrative General: Alert, oriented, no apparent distress HEENT: Atraumatic, normocephalic Eyes: Anicteric, normal conjunctiva, extraocular movements intact, pupils equal Neck: Supple Respiratory: Clear to auscultation bilaterally, normal respiratory effort Cardiovascular: Regular rate and rhythm GI: Soft, nontender, nondistended Extremities: No edema Musculoskeletal: Strength 5 out of 5 in right upper extremity, 5 out of 5 left upper extremity, 5 out of 5 right lower extremity, 5 out of 5 left lower extremity Neuro: No overt focal neurological deficits, cranial nerves II through XII intact, [id number] without significant difficulty bilaterally Skin: No rashes appreciated Psych: Cooperative Results Lab / Micro Data Result Diagrams: 06/02/22 16:50 06/02/22 16:50 Labs: Laboratory Results - last 24 hr 06/02/22 16:50: WBC 16.0 H, RBC 4.22 L, Hgb 13.0, Hct 38.5 L, MCV 91.2, MCH 30.8, MCHC 33.8, RDW Std Deviation 44.3 H, RDW Coeff of Linh 13.2, Plt Count 350,MPV 11.0, Immature Gran % (Auto) 0.300, Neut % (Auto) 30.9 L, Lymph % (Auto) 48.6 H, Burnet % (Auto) 11.0 H, Eos % (Auto) 8.3 H, Baso % (Auto) 0.9, Absolute Neuts (auto) 4.9, Absolute Lymphs (auto) 7.75 H, Nucleated RBC % 0, DifferentialComment SCANNED 06/02/22 16:50: PT 12.2, INR 0.9, APTT 30.3 06/02/22 16:50: Sodium 136, Potassium 3.9, Chloride 105, Carbon Dioxide 24.0, Anion Gap 7, BUN 19 H, Creatinine 0.94, Estim Creat Clear Calc 83.57, Est GFR (MDRD) Af Amer 106, Est GFR (MDRD) Non-Af 87, BUN/Creatinine Ratio 20.3 H, Glucose 171 H, Calcium 8.7, Troponin I High Sens 4 06/02/22 17:07: POC Glucose 159 H Radiology Impression Brain CT 06/02/22 16:31 IMPRESSION: Normal unenhanced CT scan of the brain. Electronically Signed: Darrin Mata MD at 17:37 EDT Reading Location ID and State: [facility] / [place] , Service support , ADDENDUM: 06/02/22 1304 IMPRESSION: Normal unenhanced CT scan of the brain. N.B. : The above Results were Read Back by Darrin Mata MD to Lydnon Winston MD, and understanding confirmed on 06/02/2022 17:38:52 (ET). Electronically Signed: Darrin Mata MD at 17:37 EDT , Assessment & Plan Assessment/Plan (1) Right hand weakness: PLAN: Plan #Right hand and perioral numbness -NIH 0, symptoms resolved and now presently has headache and nonfocal exam/no other complaints -Admit to tele -CT head without acute changes -CTA head and neck -MRI -NIH q4hr -asa 324 given, 81 daily, statin 80 mg -Echo w/ bubble study -PT/OT/Speech eval -Lipid panel in the a.m. -Hold BP medications to allow for permissive hypertension for 24 hours unless SBP greater than 220 or DBP greater than 120 or until stroke is ruled out -Lovenox for DVT prophylaxis #Type 2 diabetes mellitus -Glucose checks and sliding scale insulin #DVT ppx: Lovenox subcu Krista Romero MD Time spent in the patient's overall evaluation,decision-making process, review of diagnostic data, adjustment of management, discussion with other providers, nursing nursing and ancillary staff involved in patient's care documentation, 60minutes Charges/Coding Visit Charges Inpatient E&M: 12274 Init Hosp L2 06/02/221923 <Electronically signed by Krista Romero MD> Cosigner Signature (if applicable): CC: Dr. Iftikhar Carlos MD; Dr. Krista Romero MD~ Signed [facility] Work Phone: 1(640) 111-165403-26-[address] Winston [facility] June 02, 2022 7:01pm Note Date/Time June 02, 2022 5:2 5pm [facility] Medical Records Department [address] [place] [address] Emergency Department Summary 06/02/22 MR#: [id number] Acct: [id number] Name: TEMO WILKES Rep #:[id number] : 1960 61 From: Lyndon Winston DO PCP: Dr. Iftikhar Carlos MD Status:R EG ER Location: ED HPI History of Present Illness Chief Complaint: Neuro S/Sx Narrative Narrative: 61-year-old male with history of TIA presenting with concern for TIA. He statesthat about 4 hours prior to arrival he was at [employer] reading the Bible and he could not get the words out. He did not have any slurred speech but he was having trouble saying words. He noted that his upper lip felt numb and his right hand went numb. This lasted about 10 minutes and resolved. Patient states has had TIAs in the past. He denies being on aspirin or Plavix. He has followed up with Dr. Lozano in the past. Patient also complains of headache. He states he took ibuprofen prior to arrival. [facility] Medical History Allergies Back pain Cough COVID-19 Essential (primary) hypertension Groin abscess History of blood transfusion History of seizures as a child History of TIA (transient ischemic attack) Hyperlipidemia Lipoma of forehead Mass of face Nonrheumatic mitral (valve) insufficiency Osteoarthritis Pneumonia [place] Barrett syndrome (geniculate herpes zoster) Rheumatoid arthritis Rheumatoid arthritis Right trigeminal neuralgia Screening PSA (prostate specific antigen) Stroke Type II diabetes mellitus Home Medications blood sugar diagnostic (FreeStyle Lite Strips) #100 ea 09/09/18 [Rx Last Taken Unknown] blood-glucose meter (FreeStyle Lite Meter kit) #1 ea 09/09/18 [Rx Last Taken Unknown] lancets 28 gauge (FreeStyle Lancets) #200 ea 09/09/18 [Rx Last Taken Unknown] epinephrine 0.3 mg/0.3 mL injection, auto-injector 0.3 mg IM DAILY PRN allergic reaction 01/25/20 [History Last Taken Unknown] aspirin 325 mg tablet 325 mg PO DAILY 07/04/20 [History Last Taken Unknown] hydroxychloroquine 200 mg tablet 400 mg PO DAILY 10/23/21 [History Last Taken Unknown] meloxicam 15 mg tablet 15 mg PO DAILY 10/23/21 [History Last Taken Unknown] icosapent ethyl 1 gram capsule (Vascepa) 2 g PO BID #120 caps 01/29/22 [Rx Last Taken Unknown] amlodipine 5 mg tablet 5 mg PO DAILY #90 tabs 02/27/22 [Rx Last Taken Unknown] atorvastatin 80 mg tablet 80 mg PO DAILY #90 tabs 02/27/22 [Rx Last Taken Unknown] dapagliflozin 10 mg tablet (Farxiga) 10 mg PO QAM #90 tabs 02/27/22 [Rx Last Taken Unknown] fenofibrate 160 mg tablet 160 mg PO DAILY #90 tabs 02/27/22 [Rx Last Taken Unknown] glimepiride 4 mg tablet 4 mg PO QAM #90 tabs 02/27/22 [Rx Last Taken Unknown] losartan 25 mg tablet 37.5 mg PO DAILY 3 months #135 tabs 02/27/22 [Rx Last Taken Unknown] metformin 1,000 mg tablet 1,000 mg PO BID #180 tabs 02/27/22 [Rx Last Taken Unknown] metoprolol tartrate 25 mg tablet 12.5 mg PO BID #90 tabs 02/27/22 [Rx Last Taken Unknown] albuterol sulfate 90 mcg/actuation aerosol inhaler (ProAir HFA) 1 - 2 puff inhalation Q6H PRN shortness of breath or wheezing #8.5 grams 03/26/22 [Rx Last Taken Unknown] nirmatrelvir 300 mg (150 mg x2)-ritonavir 100 mg tablet,dose pack(EUA) (Paxlovid) See Rx Instructions PO .COMPLEX #30 tabs 03/26/22 [Rx Last Taken Unknown] Allergy/AdvReac Type Severity Reaction Status Date / Time pneumococcal vaccine Allergy Intermediate Rash & Verified 06/02/22 16:18 [From Pneumovax ] Swelling everardo seed Allergy Rash Verified 06/02/22 16:18 Family History Sister Diabetes Hypertension High cholesterol blood clots Cardiovascular disease Brother Myocardial infarction High cholesterol Heart disease TIA (transient ischemic attack) Cardiovascular disease Mother Myocardial infarction Hypertension Arthritis History of blood transfusion Heart disease Kidney disease Cardiovascular disease Father High cholesterol CVA (cerebral vascular accident) blood clots Cardiovascular disease Grandmother CVA (cerebral vascular accident) Surgical History History of appendectomy History of excision of lesion History of lymphoid or hematologic neoplasm History of splenectomy History of tonsillectomy Social History Smoking Status: Never smoker Tobacco: How many years used: 18 Electronic Cigarette Use: not used how long ago did patient quit smoking: quit 1994 second hand exposure: Yes (Smoked in the home ) alcohol intake: former year quit: 1994 substance use type: does not use what type of physical activity do you participate in: walking frequency: daily additional social history: does take aspirin does take ibuprofen EXAM Physical Exam Const Vital Signs: 06/02/22 16:16 06/02/22 17:12 06/02/22 17:35 Temperature 97.2 F L Temperature Source Temporal Pulse Rate 80 71 Respiratory Rate 18 15 Blood Pressure 166/66 H 171/72 H Blood Pressure Mean 99 105 Pulse Ox 96 97 96 Oxygen Delivery Method Room Air Room Air Room Air 06/02/22 18:55 Temperature 97.1 F L Temperature Source Temporal Pulse Rate 68 Respiratory Rate 16 Blood Pressure 139/70 H Blood Pressure Mean 93 Pulse Ox 98 Oxygen Delivery Method Room Air Positive well nourished General Appearance ED: NAD HEENT Reports moist mucous membranes Eyes PERRL and EOMs intact bilaterally Neck no lymphadenopathy Resp normal respiratory effort and clear to auscultation bilaterally Auscultation: Negative for rales, rhonchi or wheezes Cardio Rate: regular rate Extremity normal to inspection Neuro oriented x3 and CN's II-XII intact bilaterally Sensorium / Orientation: alert Motor Exam: strength 5/5 throughout NIHSS NIHSS Initial: 1a Level of Consciousness: 0 1b LOC Questions (Score 2 if aphasic/stupor): 0 1c LOC Commands (Only score 1st attempt): 0 2 Best Gaze (If aphasic, use reflexive mvmts.): 0 3 Visual: 0 4 Facial Palsy: 0 5 Motor Arm Right (UN = amputation/fusion): 0 5 Motor Arm Left: 0 6 Motor Leg Right: 0 6 Motor Leg Left: 0 7 Limb ataxia (Only + if out of proportion): 0 8 Sensory (Aphasia/stupor=0 or 1, coma=2): 0 9 Best Language: 0 10 Dysarthria (mute, coma=2, intubated=UN): 0 11 Extinction and Inattention (only scored if +): 0 Total Score: 0 MDM MDM MDM Narrative Medical decision making narrative: Patient presenting with TIA symptoms. He states he is not on aspirin or Plavix. Patient complains of headache as well which started after the TIA. No visual complaints. NIH stroke scale score of 0. Differential includes stroke, intracranial hemorrhage, migraine. CBC to assess white blood cell count, hemoglobin, platelets, differential. PT/INR are obtained as well. BMP to assess renal function, electrolytes, glucose, anion gap. High-sensitivity troponin was added. EKG was obtained and shows a normal sinus rhythm at 74 bpm without sign of ischemic change or dysrhythmia. Chest x-ray shows no acute process mitral rotation. Radiology interpretation agrees. CBC came back with aleukocytosis of 16.0. Hemoglobin macular stable. No left shift. Renal function and electrolytes unremarkable. PT/INR normal. High-sensitivity troponin is 4. CT brain interpreted as negative for stroke or intracranial hemorrhage. Given patient's symptoms I feel he need to be admitted for MRI and further studies. Patient amenable to this. Impression: 1. TIA Lab Data Labs: Laboratory Results - last 24 hr 06/02/22 06/02/22 06/02/22 16:50 16:50 16:50 WBC 16.0 H RBC 4.22 L Hgb 13.0 Hct 38.5 L MCV 91.2 MCH 30.8 MCHC 33.8 RDW Std Deviation 44.3 H RDW Coeff of Linh 13.2 Plt Count 350 MPV 11.0 Immature Gran % (Auto) 0.300 Neut % (Auto) 30.9 L Lymph % (Auto) 48.6 H Burnet % (Auto) 11.0 H Eos % (Auto) 8.3 H Baso % (Auto) 0.9 Absolute Neuts (auto) 4.9 Absolute Lymphs (auto) 7.75 H Nucleated RBC % 0 Differential Comment SCANNED PT 12.2 INR 0.9 APTT 30.3 Sodium 136 Potassium 3.9 Chloride 105 Carbon Dioxide 24.0 Anion Gap 7 BUN 19 H Creatinine 0.94 Estim Creat Clear Calc 83.57 Est GFR (MDRD) Af Amer 106 Est GFR (MDRD) Non-Af 87 BUN/Creatinine Ratio 20.3 H Glucose 171 H Calcium 8.7 Troponin I High Sens 4 POC Glucose 06/02/22 17:07 WBC RBC Hgb Hct MCV MCH MCHC RDW Std Deviation RDW Coeff of Linh Plt Count MPV Immature Gran % (Auto) Neut % (Auto) Lymph % (Auto) Burnet % (Auto) Eos % (Auto) Baso % (Auto) Absolute Neuts (auto) Absolute Lymphs (auto) Nucleated RBC % Differential Comment PT INR APTT Sodium Potassium Chloride Carbon Dioxide Anion Gap BUN Creatinine Estim Creat Clear Calc Est GFR (MDRD) Af Amer Est GFR (MDRD) Non-Af BUN/Creatinine Ratio Glucose Calcium Troponin I High Sens POC Glucose 159 H Radiography Diagnostic Testing: Clinical Impression(s) from Imaging Studies Brain CT 06/02/22 16:31 IMPRESSION: Normal unenhanced CT scan of the brain. Electronically Signed: Darrin Mata MD at 17:37 EDT Reading Location ID and State: [address] [place] [address] , Service support , ADDENDUM: 06/02/22 1745 IMPRESSION: Normal unenhanced CT scan of the brain. N.B. : The above Results were Read Back by Darrin Mata MD to Lyndon Winston MD, and understanding confirmed on 06/02/2022 17:38:52 (ET). Electronically Signed: Darrin Mata MD at 17:37 EDT Reading Location ID and State: [address] [place] [address] , Service support , Discharge Plan Triage Chief Complaint: Neuro S/Sx ED Provider: Lyndon Winston Dx/Rx/DC Orders Prescriptions: No Action (DME) FreeStyle Lite Strips Strip See Rx Instructions .ROUTE .MEDSUPPLY Qty: 100 3RF Rx Instructions: check blood glucose daily for type 2 DM (DME) blood-glucose meter [FreeStyle Lite Meter] Kit See Rx Instructions .ROUTE .MEDSUPPLY Qty: 1 0RF Rx Instructions: As directed, check blood glucose daily for type 2 DM (DME) lancets [FreeStyle Lancets] 28 gauge misc See Rx Instructions .ROUTE .MEDSUPPLY Qty: 200 3RF Rx Instructions: check blood glucose daily for type 2 DM aspirin 325 mg tablet 325 mg PO DAILY hydroxychloroquine 200 mg tablet 400 mg PO DAILY meloxicam 15 mg tablet 15 mg PO DAILY albuterol sulfate [ProAir HFA] 90 mcg/actuation HFA aerosol inhaler 1 - 2 puff inhalation Q6H PRN (Reason: shortness of breath or wheezing) Qty: 8.5 1RF Paxlovid (EUA) 300 mg (150 mg x 2)-100 mg tablets,dose pack See Rx Instructions PO .COMPLEX Qty: 30 0RF Rx Instructions: take TWO 150 mg tablets of nirmatrelvir with ONE 100 mg tablet of ritonavir twice daily for 5 days PO epinephrine 0.3 MG syringe 0.3 mg IM DAILY PRN (Reason: allergic reaction ) Vascepa 1 gram capsule 2 g PO BID Qty: 120 4RF amlodipine 5 mg tablet 5 mg PO DAILY Qty: 90 3RF atorvastatin 80 mg tablet 80 mg PO DAILY Qty: 90 3RF Farxiga 10 mg tablet 10 mg PO QAM Qty: 90 1RF fenofibrate 160 mg tablet 160 mg PO DAILY Qty: 90 1RF glimepiride 4 mg tablet 4 mg PO QAM Qty: 90 3RF losartan 25 mg tablet 37.5 mg PO DAILY 90 Days Qty: 135 3RF metformin 1,000 mg tablet 1,000 mg PO BID Qty: 180 3RF metoprolol tartrate 25 mg tablet 12.5 mg PO BID Qty: 90 3RF Primary Care Provider: Iftikhar Carlos Referrals: Iftikhar Carlos MD [Primary Care Provider] - What to do if you have Problems For any increased pain, shortness of breath, bleeding, nausea or vomiting, chestpain, or any unexpected problems, contact your Primary Care Provider. Call [facility] ([phone]) or report to the closest Emergency Room. Call 911 if necessary. 06/02/22 190 <Electronically signed by Lyndon Winston DO> Cosigner Signature (if applicable): CC: Dr. Iftikhar Carlos MD ~ Signed [facility] Work Phone: [phone] 338-776103-26-[address] Winston [facility] June 02, 2022 7:01pm Note Date/Time June 02, 2022 5:2 5pm [facility] Medical Records Department [address] [place] [address] Emergency Department Summary 06/02/22 MR#: [id number] Acct: [id number] Name: TEMO WILKES Rep #:[id number] 1 : 1960 61 From: Lyndon Winston DO PCP: Dr. Iftikhar Carlos MD Status:R EG ER Location: ED HPI History of Present Illness Chief Complaint: Neuro S/Sx Narrative Narrative: 61-year-old male with history of TIA presenting with concern for TIA. He statesthat about 4 hours prior to arrival he was at [employer] reading the [employer] and he could not get the words out. He did not have any slurred speech but he was having trouble saying words. He noted that his upper lip felt numb and his right hand went numb. This lasted about 10 minutes and resolved. Patient states has had TIAs in the past. He denies being on aspirin or Plavix. He has followed up with Dr. Lozano in the past. Patient also complains of headache. He states he took ibuprofen prior to arrival. [facility] Medical History Allergies Back pain Cough COVID-19 Essential (primary) hypertension Groin abscess History of blood transfusion History of seizures as a child History of TIA (transient ischemic attack) Hyperlipidemia Lipoma of forehead Mass of face Nonrheumatic mitral (valve) insufficiency Osteoarthritis Pneumonia Trevor Barrett syndrome (geniculate herpes zoster) Rheumatoid arthritis Rheumatoid arthritis Right trigeminal neuralgia Screening PSA (prostate specific antigen) Stroke Type II diabetes mellitus Home Medications blood sugar diagnostic (FreeStyle Lite Strips) #100 ea 09/09/18 [Rx Last Taken Unknown] blood-glucose meter (FreeStyle Lite Meter kit) #1 ea 09/09/18 [Rx Last Taken Unknown] lancets 28 gauge (FreeStyle Lancets) #200 ea 09/09/18 [Rx Last Taken Unknown] epinephrine 0.3 mg/0.3 mL injection, auto-injector 0.3 mg IM DAILY PRN allergic reaction 01/25/20 [History Last Taken Unknown] aspirin 325 mg tablet 325 mg PO DAILY 07/04/20 [History Last Taken Unknown] hydroxychloroquine 200 mg tablet 400 mg PO DAILY 10/23/21 [History Last Taken Unknown] meloxicam 15 mg tablet 15 mg PO DAILY 10/23/21 [History Last Taken Unknown] icosapent ethyl 1 gram capsule (Vascepa) 2 g PO BID #120 caps 01/29/22 [Rx Last Taken Unknown] amlodipine 5 mg tablet 5 mg PO DAILY #90 tabs 02/27/22 [Rx Last Taken Unknown] atorvastatin 80 mg tablet 80 mg PO DAILY #90 tabs 02/27/22 [Rx Last Taken Unknown] dapagliflozin 10 mg tablet (Farxiga) 10 mg PO QAM #90 tabs 02/27/22 [Rx Last Taken Unknown] fenofibrate 160 mg tablet 160 mg PO DAILY #90 tabs 02/27/22 [Rx Last Taken Unknown] glimepiride 4 mg tablet 4 mg PO QAM #90 tabs 02/27/22 [Rx Last Taken Unknown] losartan 25 mg tablet 37.5 mg PO DAILY 3 months #135 tabs 02/27/22 [Rx Last Taken Unknown] metformin 1,000 mg tablet 1,000 mg PO BID #180 tabs 02/27/22 [Rx Last Taken Unknown] metoprolol tartrate 25 mg tablet 12.5 mg PO BID #90 tabs 02/27/22 [Rx Last Taken Unknown] albuterol sulfate 90 mcg/actuation aerosol inhaler (ProAir HFA) 1 - 2 puff inhalation Q6H PRN shortness of breath or wheezing #8.5 grams 03/26/22 [Rx Last Taken Unknown] nirmatrelvir 300 mg (150 mg x2)-ritonavir 100 mg tablet,dose pack(EUA) (Paxlovid) See Rx Instructions PO .COMPLEX #30 tabs 03/26/22 [Rx Last Taken Unknown] Allergy/AdvReac Type Severity Reaction Status Date / Time pneumococcal vaccine Allergy Intermediate Rash & Verified 06/02/22 16:18 [From Pneumovax ] Swelling everardo seed Allergy Rash Verified 06/02/22 16:18 Family History Sister Diabetes Hypertension High cholesterol blood clots Cardiovascular disease Brother Myocardial infarction High cholesterol Heart disease TIA (transient ischemic attack) Cardiovascular disease Mother Myocardial infarction Hypertension Arthritis History of blood transfusion Heart disease Kidney disease Cardiovascular disease Father High cholesterol CVA (cerebral vascular accident) blood clots Cardiovascular disease Grandmother CVA (cerebral vascular accident) Surgical History History of appendectomy History of excision of lesion History of lymphoid or hematologic neoplasm History of splenectomy History of tonsillectomy Social History Smoking Status: Never smoker Tobacco: How many years used: 18 Electronic Cigarette Use: not used how long ago did patient quit smoking: quit 1994 second hand exposure: Yes (Smoked in the home ) alcohol intake: former year quit: 1994 substance use type: does not use what type of physical activity do you participate in: walking frequency: daily additional social history: does take aspirin does take ibuprofen EXAM Physical Exam Const Vital Signs: 06/02/22 16:16 06/02/22 17:12 06/02/22 17:35 Temperature 97.2 F L Temperature Source Temporal Pulse Rate 80 71 Respiratory Rate 18 15 Blood Pressure 166/66 H 171/72 H Blood Pressure Mean 99 105 Pulse Ox 96 97 96 Oxygen Delivery Method Room Air Room Air Room Air 06/02/22 18:55 Temperature 97.1 F L Temperature Source Temporal Pulse Rate 68 Respiratory Rate 16 Blood Pressure 139/70 H Blood Pressure Mean 93 Pulse Ox 98 Oxygen Delivery Method Room Air Positive well nourished General Appearance ED: NAD HEENT Reports moist mucous membranes Eyes PERRL and EOMs intact bilaterally Neck no lymphadenopathy Resp normal respiratory effort and clear to auscultation bilaterally Auscultation: Negative for rales, rhonchi or wheezes Cardio Rate: regular rate Extremity normal to inspection Neuro oriented x3 and CN's II-XII intact bilaterally Sensorium / Orientation: alert Motor Exam: strength 5/5 throughout NIHSS NIHSS Initial: 1a Level of Consciousness: 0 1b LOC Questions (Score 2 if aphasic/stupor): 0 1c LOC Commands (Only score 1st attempt): 0 2 Best Gaze (If aphasic, use reflexive mvmts.): 0 3 Visual: 0 4 Facial Palsy: 0 5 Motor Arm Right (UN = amputation/fusion): 0 5 Motor Arm Left: 0 6 Motor Leg Right: 0 6 Motor Leg Left: 0 7 Limb ataxia (Only + if out of proportion): 0 8 Sensory (Aphasia/stupor=0 or 1, coma=2): 0 9 Best Language: 0 10 Dysarthria (mute, coma=2, intubated=UN): 0 11 Extinction and Inattention (only scored if +): 0 Total Score: 0 MDM MDM MDM Narrative Medical decision making narrative: Patient presenting with TIA symptoms. He states he is not on aspirin or Plavix. Patient complains of headache as well which started after the TIA. No visual complaints. NIH stroke scale score of 0. Differential includes stroke, intracranial hemorrhage, migraine. CBC to assess white blood cell count, hemoglobin, platelets, differential. PT/INR are obtained as well. BMP to assess renal function, electrolytes, glucose, anion gap. High-sensitivity troponin was added. EKG was obtained and shows a normal sinus rhythm at 74 bpm without sign of ischemic change or dysrhythmia. Chest x-ray shows no acute process mitral rotation. Radiology interpretation agrees. CBC came back with aleukocytosis of 16.0. Hemoglobin macular stable. No left shift. Renal function and electrolytes unremarkable. PT/INR normal. High-sensitivity troponin is 4. CT brain interpreted as negative for stroke or intracranial hemorrhage. Given patient's symptoms I feel he need to be admitted for MRI and further studies. Patient amenable to this. Impression: 1. TIA Lab Data Labs: Laboratory Results - last 24 hr 06/02/22 06/02/22 06/02/22 16:50 16:50 16:50 WBC 16.0 H RBC 4.22 L Hgb 13.0 Hct 38.5 L MCV 91.2 MCH 30.8 MCHC 33.8 RDW Std Deviation 44.3 H RDW Coeff of Linh 13.2 Plt Count 350 MPV 11.0 Immature Gran % (Auto) 0.300 Neut % (Auto) 30.9 L Lymph % (Auto) 48.6 H Burnet % (Auto) 11.0 H Eos % (Auto) 8.3 H Baso % (Auto) 0.9 Absolute Neuts (auto) 4.9 Absolute Lymphs (auto) 7.75 H Nucleated RBC % 0 Differential Comment SCANNED PT 12.2 INR 0.9 APTT 30.3 Sodium 136 Potassium 3.9 Chloride 105 Carbon Dioxide 24.0 Anion Gap 7 BUN 19 H Creatinine 0.94 Estim Creat Clear Calc 83.57 Est GFR (MDRD) Af Amer 106 Est GFR (MDRD) Non-Af 87 BUN/Creatinine Ratio 20.3 H Glucose 171 H Calcium 8.7 Troponin I High Sens 4 POC Glucose 06/02/22 17:07 WBC RBC Hgb Hct MCV MCH MCHC RDW Std Deviation RDW Coeff of Linh Plt Count MPV Immature Gran % (Auto) Neut % (Auto) Lymph % (Auto) Burnet % (Auto) Eos % (Auto) Baso % (Auto) Absolute Neuts (auto) Absolute Lymphs (auto) Nucleated RBC % Differential Comment PT INR APTT Sodium Potassium Chloride Carbon Dioxide Anion Gap BUN Creatinine Estim Creat Clear Calc Est GFR (MDRD) Af Amer Est GFR (MDRD) Non-Af BUN/Creatinine Ratio Glucose Calcium Troponin I High Sens POC Glucose 159 H Radiography Diagnostic Testing: Clinical Impression(s) from Imaging Studies Brain CT 06/02/22 16:31 IMPRESSION: Normal unenhanced CT scan of the brain. Electronically Signed: Darrin Mata MD at 17:37 EDT Reading Location ID and State: [address] [place] [address] , Service support , ADDENDUM: 06/02/22 1745 IMPRESSION: Normal unenhanced CT scan of the brain. N.B. : The above Results were Read Back by Darrin Mata MD to Lyndon Winston MD, and understanding confirmed on 06/02/2022 17:38:52 (ET). Electronically Signed: Darrin Mata MD at 17:37 EDT , Discharge Plan Triage Chief Complaint: Neuro S/Sx ED Provider: Lyndon Winston Dx/Rx/DC Orders Prescriptions: No Action (DME) FreeStyle Lite Strips Strip See Rx Instructions .ROUTE .MEDSUPPLY Qty: 100 3RF Rx Instructions: check blood glucose daily for type 2 DM (DME) blood-glucose meter [FreeStyle Lite Meter] Kit See Rx Instructions .ROUTE .MEDSUPPLY Qty: 1 0RF Rx Instructions: As directed, check blood glucose daily for type 2 DM (DME) lancets [FreeStyle Lancets] 28 gauge misc See Rx Instructions .ROUTE .MEDSUPPLY Qty: 200 3RF Rx Instructions: check blood glucose daily for type 2 DM aspirin 325 mg tablet 325 mg PO DAILY hydroxychloroquine 200 mg tablet 400 mg PO DAILY meloxicam 15 mg tablet 15 mg PO DAILY albuterol sulfate [ProAir HFA] 90 mcg/actuation HFA aerosol inhaler 1 - 2 puff inhalation Q6H PRN (Reason: shortness of breath or wheezing) Qty: 8.5 1RF Paxlovid (EUA) 300 mg (150 mg x 2)-100 mg tablets,dose pack See Rx Instructions PO .COMPLEX Qty: 30 0RF Rx Instructions: take TWO 150 mg tablets of nirmatrelvir with ONE 100 mg tablet of ritonavir twice daily for 5 days PO epinephrine 0.3 MG syringe 0.3 mg IM DAILY PRN (Reason: allergic reaction ) Vascepa 1 gram capsule 2 g PO BID Qty: 120 4RF amlodipine 5 mg tablet 5 mg PO DAILY Qty: 90 3RF atorvastatin 80 mg tablet 80 mg PO DAILY Qty: 90 3RF Farxiga 10 mg tablet 10 mg PO QAM Qty: 90 1RF fenofibrate 160 mg tablet 160 mg PO DAILY Qty: 90 1RF glimepiride 4 mg tablet 4 mg PO QAM Qty: 90 3RF losartan 25 mg tablet 37.5 mg PO DAILY 90 Days Qty: 135 3RF metformin 1,000 mg tablet 1,000 mg PO BID Qty: 180 3RF metoprolol tartrate 25 mg tablet 12.5 mg PO BID Qty: 90 3RF Primary Care Provider: Iftikhar Carlos Referrals: Iftikhar Carlos MD [Primary Care Provider] - What to do if you have Problems For any increased pain, shortness of breath, bleeding, nausea or vomiting, chestpain, or any unexpected problems, contact your Primary Care Provider. Call [facility] ([phone]) or report to the closest Emergency Room. Call 911 if necessary. 06/02/22 190 <Electronically signed by Lyndon Winston DO> Cosigner Signature (if applicable): CC: Dr. Iftikhar Carlos MD ~ Signed [facility] Work Phone: Discharge summary Author Dr. Romero [facility] June 04, 2022 6:45pm Note Date/Time June 04, 2022 6:4 5pm [facility] Medical Records Department [address] [place] [address] Instructions for Home/Discharge Instructions 06/04/22 1844 MR#: [id number] Acct: [id number] Name: TEMO WILKES Rep #:[id number] : 1960 61 From: Krista Romero MD PCP: Dr. Iftikhar Carlos MD Status:A DM JOSÉ LUIS Discharge Instructions Diet Discharge Diet: No restrictions Activity Discharge Activity: May Not Drive Follow Up Care Test Results: Test results from this visit will be discussed in further detail at your follow- up appointment, if applicable. Discharge Plan Admission Admit Date/Time: 06/02/22 18:58 Primary Reason for Your Visit: Face and arm numbness Attending Provider: Krista Romero Primary Care Provider: Iftikhar Carlos Instructions Patient Instructions: ED Seizure New Onset Unknown ... Additional Instructions / Restrictions: DISCHARGE INSTRUCTIONS PLEASE READ *Please take this with you to your next doctors appointment* -You were evaluated by neurology and there is concern that your symptoms may have been due to seizure activity however with no definitive evidence they advised against starting daily seizure medication. However neurology would likefor you to be discharged with a prescription for 500 mg of Keppra twice a day and advised that you take this if any symptoms recur and call your outpatient neurologist. Keppra will be sent to [facility] retail pharmacy -It will be very important that you follow neurology as an outpatient. Please follow-up with neurology upon discharge, please call Dr. Lozano's office upon discharge to schedule hospital follow-up appointment ) -You will be discharged on aspirin, please take 81 mg daily -It was also advised that you follow-up with vascular neurology for the small aneurysm that was found. You can follow-up with Dr. Ivette Rodríguez, contact information below, with vascular neurology upon discharge or discussed with yourneurologist for referral -It is recommended that you do not drive upon discharge until cleared by your neurologist to do so SEIZURE DISCHARGE INSTRUCTIONS: - Seizures are unpredictable. Do not do anything that might cause danger to youor other people if you have another seizure. Do not drive, ride a bike, climb ladders, or operate dangerous equipment - Do not take a bath alone. Take shower instead - Not some alone until your healthcare provider says that you are no longer in danger of having another seizure - Tell your close friends and relatives about your seizure. Teach them what to do for you if it happens again - Take your medicine as prescribed, missing doses increases your risk of having repeat seizure -Follow regular sleep schedule such that you get at least 60 hours of restful sleep every night. This is especially important when you are sick or have a cold, flu, or another type of infection - Do not drink alcoholic beverages until your doctor says it is okay. Do not ever use recreational drugs - Do not drive until you are cleared to do so by your doctor -For future seizures if you are alone: If you feel a seizure coming on, lie downon a bed or the floor or with something soft under your head and lie on your left side, not in your back. Also make sure you are not near any objects that may injure you during seizure. Call 911 if you can. - For future seizures if someone is with you: Depression should help you get into a safe position and then they should call 911. They should not try to force anything into your mouth once the seizure begins. They should not put their fingers in your mouth. -After seizure you may be drowsy or confused. That person should stay with you until you are fully awake. That person should not offer you anything to eat or drink during that time. Call 911 or go to the emergency department. -Call your healthcare provider right away if you have any of these: Another seizure, a fever of 100.4 ?F or higher, abnormal irritability, drowsiness, or confusion, head or neck pain that gets worse Discharge Orders/Prescriptions Prescriptions: New levetiracetam [Keppra] 500 mg tablet 500 mg PO BID Qty: 30 0RF aspirin 81 mg Tablet,Chewable 81 mg PO BREAKFAST 30 Days Qty: 30 0RF Continued (DME) FreeStyle Lite Strips Strip See Rx Instructions .ROUTE .MEDSUPPLY Qty: 100 3RF Rx Instructions: check blood glucose daily for type 2 DM (DME) blood-glucose meter [FreeStyle Lite Meter] Kit See Rx Instructions .ROUTE .MEDSUPPLY Qty: 1 0RF Rx Instructions: As directed, check blood glucose daily for type 2 DM (DME) lancets [FreeStyle Lancets] 28 gauge misc See Rx Instructions .ROUTE .MEDSUPPLY Qty: 200 3RF Rx Instructions: check blood glucose daily for type 2 DM hydroxychloroquine 200 mg tablet 400 mg PO DAILY meloxicam 15 mg tablet 15 mg PO DAILY albuterol sulfate [ProAir HFA] 90 mcg/actuation HFA aerosol inhaler 1 - 2 puff inhalation Q6H PRN (Reason: shortness of breath or wheezing) Qty: 8.5 1RF epinephrine 0.3 MG syringe 0.3 mg IM DAILY PRN (Reason: allergic reaction ) atorvastatin [Lipitor] 80 mg tablet 80 mg PO DAILY metformin 1,000 mg tablet 1,000 mg PO BID glimepiride 4 mg tablet 4 mg PO QAM losartan 25 mg tablet 37.5 mg PO DAILY Vascepa 1 gram capsule 2 g PO BID Qty: 120 4RF amlodipine 5 mg tablet 5 mg PO DAILY Qty: 90 3RF metoprolol tartrate 25 mg tablet 12.5 mg PO BID Qty: 90 3RF Referrals / Follow Up: Randall Rodríguez MD [Other] - See Referral Note (Call vascular neurology upon discharge to schedule an appointment for your 3 mm aneurysm) Iftikhar Carlos MD [Primary Care Provider] - Within 1 Week Obi Lozano MD [Non-Staff -Ordering Privileges] - See Referral Note (Pleaseyour neurologist office tomorrow to schedule hospital follow-up appointment) Disposition Disposition (needs filled in before D/C Order can be placed): Home, Self Care 06/04/225<Electronically signed by Krista Romero MD>Krista Romero MD CC: Dr. Iftikhar Carlos MD ~ Signed [facility] Work Phone: Evaluation note* Diagnosis Onset Date Resolution Status Cough acute Diarrhea acute Sore throat acute Essential (primary) hypertension chronic Type II diabetes mellitus ch ronic Essential (primary) hypertension chronic Type II diabetes mellitus ch [facility] Work Phone: Evaluation note* Diagnosis Onset Date Resolution Status Rheumatoid arthritis acute Essential (primary) hypertension chronic Type II diabetes mellitus ch ronic Sore throat acute URI (upper respiratory infection) noneactive [facility] Work Phone: Evaluation note* Diagnosis Onset Date Resolution Status Sore throat acute URI (upper respiratory infection) noneactive Essential (primary) hypertension chronic Type II diabetes mellitus ch ronic URI (upper respiratory infection) noneactive [facility] Work Phone: Evaluation note* Diagnosis Onset Date Resolution Status Essential (primary) hypertension chronic Type II diabetes mellitus ronic URI (upper respiratory infection) noneactive URI (upper respiratory infection) noneactive Body aches noneactive [facility] Work Phone: Evaluation note* Diagnosis Onset Date Resolution Status Essential (primary) hypertension chronic Type II diabetes mellitus ronic URI (upper respiratory infection) noneactive URI (upper respiratory infection) noneactive Body aches noneactive Right hand weakness acute [facility] Work Phone: Evaluation note* Diagnosis Unruptured cerebral aneurysm- Primary Cerebral aneurysm, nonruptured Hypertension, unspecified type Nonintractable headache, unspecified chronicity pattern, unspecified headache type [facility] Diagnosis Cerebral aneurysm- Primary Cerebral aneurysm, nonruptured documented [facility]* Diagnosis Onset Date Resolution Status URI (upper respiratory infection) noneactive Body aches noneactive Right hand weakness resolved Essential (primary) hypertension chronic Hx-TIA (transient ischemic attack) chronic Type II diabetes mellitus [facility] Work Phone: Evaluation note* Diagnosis Abnormal MRI of head- Primary Nonspecific (abnormal) findings on radiological and other examination of skull and head documented [facility]* Diagnosis Altered awareness, transient- Primary Transient alteration of awareness [facility]* Diagnosis Onset Date Resolution Status Anticardiolipin antibody positive acute Transient ischemic attack ac [place] Hx-TIA (transient ischemic attack) chronic Blood in stool acute Essential (primary) hypertension chronic Hyperlipidemia chronic Type II diabetes mellitus [facility] Work Phone: Evaluation note* Diagnosis Sensorineural hearing loss, asymmetrical- Primary [facility] Diagnosis Onset Date Resolution Status Blood in stool acute Essential (primary) hypertension chronic Hyperlipidemia chronic Type II diabetes mellitus [facility] Work Phone: Evaluation note* Diagnosis 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 hearing of left ear- Primary Abnormal MRI of head Nonspecific (abnormal) findings on radiological and other examination of skull and head documented [facility] this [facility] noteNo assessment information [facility]WC[facility] Work Phone: Evaluation note* Diagnosis Onset Date Resolution Status Encounter for screening for malignant neoplasm of colo n acute [facility] Work Phone: Evaluation note* Diagnosis Nonruptured cerebral aneurysm (HCC)- Primary Cerebral aneurysm, nonruptured documented in this encounter [facility] note* Diagnosis Anterior communicating artery aneurysm (HCC)- Primary Cerebral aneurysm, nonruptured Family history of cerebral aneurysm Family history of stroke (cerebrovascular) Essential hypertension Unspecified essential hypertension [facility]* Diagnosis Chronic subdural hematoma (HCC)- Primary Subdural hemorrhage documented in this encounter [facility] note* Diagnosis Cerebral aneurysm (HCC)- Primary Cerebral aneurysm, nonruptured Cerebral aneurysm (HCC) Cerebral aneurysm, nonruptured [facility] Author Dr. Romero [facility] June 02, 2022 7:24pm Note Date/Time June 02, 2022 6:4 9pm [facility] Medical Records Department [address] [place] [address] H&P Exam - Hospitalist 06/02/22 1846 MR#: [id number] Acct: [id number] Name: TEMO WILKES Rep #:[id number] : 1960 61 From: Krista Romero MD PCP: Dr. Iftikhar Carlos MD Status:A DM JOSÉ LUIS Location: [place] [address] HPI - General General Date of Service: 06/02/22 Chief Complaint: Facial numbness and R hand weakness HPI Narrative TEMO WILKES, is a 61 M with reported history of TIAs, hypertension, type 2 diabetes mellitus, rheumatoid arthritis who presented to [facility] 06/02/2022 with numbness around his face and right hand numbness while he was at [employer] this morning. Upon presentation NIH was 0 and symptoms resolved but he did have a headache that was in the front of his head and been present for several hours. Given his risk factors and history CT head obtained with no acute abnormality and hospitalist called for TIA/stroke work-up. Evaluated patient with at bedside and he reports that he was in [employer] earlier today reading the Bible out loud and he began having difficulty with hiswords and getting them out also had numbness above his upper lip and right hand numbness up to the middle of his arm. This lasted roughly 10 minutes and then went away and has had a frontal headache since. Denies any nausea or vomiting, headache is somewhat waxed and waned and he has not tried anything for it. Onlyother symptom he endorses was a cold sweat and his reports his face was redduring the episode but these went away. Had episodes where he has had parts of his face go numb in the past last one being several years ago. When asked aboutvision he did say he might of had slight blurred vision at the very onset of symptoms but denied any persistent or recurrent symptoms. In ED white blood cell count 16 with a hemoglobin of 13. Renal function and electrolytes unremarkable, high-sensitivity troponin was 4 and chest x-ray no acute abnormalities. [facility] Medical History Allergies Back pain Cough COVID-19 Essential (primary) hypertension Groin abscess History of blood transfusion History of seizures as a child History of TIA (transient ischemic attack) Hyperlipidemia Lipoma of forehead Mass of face Nonrheumatic mitral (valve) insufficiency Osteoarthritis Pneumonia Trevor Barrett syndrome (geniculate herpes zoster) Rheumatoid arthritis Rheumatoid arthritis Right trigeminal neuralgia Screening PSA (prostate specific antigen) Stroke Type II diabetes mellitus Home Medications blood sugar diagnostic (FreeStyle Lite Strips) #100 ea 09/09/18 [Rx Last Taken Unknown] blood-glucose meter (FreeStyle Lite Meter kit) #1 ea 09/09/18 [Rx Last Taken Unknown] lancets 28 gauge (FreeStyle Lancets) #200 ea 09/09/18 [Rx Last Taken Unknown] epinephrine 0.3 mg/0.3 mL injection, auto-injector 0.3 mg IM DAILY PRN allergic reaction 01/25/20 [History Last Taken Unknown] hydroxychloroquine 200 mg tablet 400 mg PO DAILY 10/23/21 [History Last Taken Unknown] meloxicam 15 mg tablet 15 mg PO DAILY 10/23/21 [History Last Taken Unknown] icosapent ethyl 1 gram capsule (Vascepa) 2 g PO BID #120 caps 01/29/22 [Rx Last Taken Unknown] amlodipine 5 mg tablet 5 mg PO DAILY #90 tabs 02/27/22 [Rx Last Taken Unknown] glimepiride 4 mg tablet 4 mg PO QAM #90 tabs 02/27/22 [Rx Last Taken Unknown] losartan 25 mg tablet 37.5 mg PO DAILY 3 months #135 tabs 02/27/22 [Rx Last Taken Unknown] metformin 1,000 mg tablet 1,000 mg PO BID #180 tabs 02/27/22 [Rx Last Taken Unknown] metoprolol tartrate 25 mg tablet 12.5 mg PO BID #90 tabs 02/27/22 [Rx Last Taken Unknown] albuterol sulfate 90 mcg/actuation aerosol inhaler (ProAir HFA) 1 - 2 puff inhalation Q6H PRN shortness of breath or wheezing #8.5 grams 03/26/22 [Rx Last Taken Unknown] atorvastatin 80 mg tablet (Lipitor) 80 mg PO DAILY 06/02/22 [History Last Taken Unknown] Allergy/AdvReac Type Severity Reaction Status Date / Time pneumococcal vaccine Allergy Intermediate Rash & Verified 06/02/22 16:18 [From Pneumovax ] Swelling everardo seed Allergy Rash Verified 06/02/22 16:18 Family History Sister Diabetes Hypertension High cholesterol blood clots Cardiovascular disease Brother Myocardial infarction High cholesterol Heart disease TIA (transient ischemic attack) Cardiovascular disease Mother Myocardial infarction Hypertension Arthritis History of blood transfusion Heart disease Kidney disease Cardiovascular disease Father High cholesterol CVA (cerebral vascular accident) blood clots Cardiovascular disease Grandmother CVA (cerebral vascular accident) Surgical History History of appendectomy History of excision of lesion History of lymphoid or hematologic neoplasm History of splenectomy History of tonsillectomy Social History Smoking Status: Never smoker Tobacco: How many years used: 18 Electronic Cigarette Use: not used how long ago did patient quit smoking: quit 1994 second hand exposure: Yes (Smoked in the home ) alcohol intake: former year quit: 1994 substance use type: does not use what type of physical activity do you participate in: walking frequency: daily additional social history: does take aspirin does take ibuprofen ROS ROS Narrative General: Denies fever/chills HENT: Frontal headache, denies stuffy nose, denies sore throat EYES: Denies changes in vision Resp: Denies cough, denies shortness of breath Cardiac: Denies chest pain GI: Denies abdominal pain, denies changes in bowel, denies nausea/vomiting : Denies changes in urination Extremity: Denies swelling MSK: Denies weakness Neuro: Denies any further numbness or tingling, had right hand numbness up to mid arm and numbness above upper lip and a mustache distribution Heme: Denies any bleeding or bruising Skin: Denies rashes Psychiatric: No complaints voiced Vital Signs Vital Signs Vital Signs: 06/02/22 16:16 06/02/22 17:12 06/02/22 17:35 Temperature 97.2 F L Temperature Source Temporal Pulse Rate 80 71 Respiratory Rate 18 15 Blood Pressure 166/66 H 171/72 H Blood Pressure Mean 99 105 Pulse Ox 96 97 96 Oxygen Delivery Method Room Air Room Air Room Air Weight Weight: 92.9 kg Body Mass Index (BMI) 30.2 Physical Exam Narrative General: Alert, oriented, no apparent distress HEENT: Atraumatic, normocephalic Eyes: Anicteric, normal conjunctiva, extraocular movements intact, pupils equal Neck: Supple Respiratory: Clear to auscultation bilaterally, normal respiratory effort Cardiovascular: Regular rate and rhythm GI: Soft, nontender, nondistended Extremities: No edema Musculoskeletal: Strength 5 out of 5 in right upper extremity, 5 out of 5 left upper extremity, 5 out of 5 right lower extremity, 5 out of 5 left lower extremity Neuro: No overt focal neurological deficits, cranial nerves II through XII intact, [id number] without significant difficulty bilaterally Skin: No rashes appreciated Psych: Cooperative Results Lab / Micro Data Result Diagrams: 06/02/22 16:50 06/02/22 16:50 Labs: Laboratory Results - last 24 hr 06/02/22 16:50: WBC 16.0 H, RBC 4.22 L, Hgb 13.0, Hct 38.5 L, MCV 91.2, MCH 30.8, MCHC 33.8, RDW Std Deviation 44.3 H, RDW Coeff of Linh 13.2, Plt Count 350,MPV 11.0, Immature Gran % (Auto) 0.300, Neut % (Auto) 30.9 L, Lymph % (Auto) 48.6 H, Burnet % (Auto) 11.0 H, Eos % (Auto) 8.3 H, Baso % (Auto) 0.9, Absolute Neuts (auto) 4.9, Absolute Lymphs (auto) 7.75 H, Nucleated RBC % 0, DifferentialComment SCANNED 06/02/22 16:50: PT 12.2, INR 0.9, APTT 30.3 06/02/22 16:50: Sodium 136, Potassium 3.9, Chloride 105, Carbon Dioxide 24.0, Anion Gap 7, BUN 19 H, Creatinine 0.94, Estim Creat Clear Calc 83.57, Est GFR (MDRD) Af Amer 106, Est GFR (MDRD) Non-Af 87, BUN/Creatinine Ratio 20.3 H, Glucose 171 H, Calcium 8.7, Troponin I High Sens 4 06/02/22 17:07: POC Glucose 159 H Radiology Impression Brain CT 06/02/22 16:31 IMPRESSION: Normal unenhanced CT scan of the brain. Electronically Signed: Darrin Mata MD at 17:37 EDT Reading Location ID and State: [employer] [place] [employer] / [place] , Service support , ADDENDUM: 06/02/22 1745 IMPRESSION: Normal unenhanced CT scan of the brain. N.B. : The above Results were Read Back by Darrin Mata MD to Lyndon Winston MD, and understanding confirmed on 06/02/2022 17:38:52 (ET). Electronically Signed: Darrin Mata MD at 17:37 EDT , Assessment & Plan Assessment/Plan (1) Right hand weakness: PLAN: Plan #Right hand and perioral numbness -NIH 0, symptoms resolved and now presently has headache and nonfocal exam/no other complaints -Admit to tele -CT head without acute changes -CTA head and neck -MRI -NIH q4hr -asa 324 given, 81 daily, statin 80 mg -Echo w/ bubble study -PT/OT/Speech eval -Lipid panel in the a.m. -Hold BP medications to allow for permissive hypertension for 24 hours unless SBP greater than 220 or DBP greater than 120 or until stroke is ruled out -Lovenox for DVT prophylaxis #Type 2 diabetes mellitus -Glucose checks and sliding scale insulin #DVT ppx: Lovenox subcu Krista Romero MD Time spent in the patient's overall evaluation,decision-making process, review of diagnostic data, adjustment of management, discussion with other providers, nursing nursing and ancillary staff involved in patient's care documentation, 60minutes Charges/Coding Visit Charges Inpatient E&M: 41831 Init Hosp L2 06/02/221923 <Electronically signed by Krista Romero MD> Cosigner Signature (if applicable): CC: Dr. Iftikhar Carlos MD; Dr. Krista Romero MD~ Signed [facility] Work Phone: History and physical note Author Thomas Little [facility] June 12, 2023 7:32am Note Date/Time June 12, 2023 7:32 am [facility] Medical Records Department [address] [place] [address] History & Physical Exam 06/12/23 0730 MR#: [id number] Acct: [id number] Name: TEMO WILKES Rep #:[id number] : 1960 62 From: Thomas Little DO PCP: TED Majano Status:[facility] Location: [place] [address] HPI - General General Date of Admission: 06/12/23 Date of Service: 06/12/23 Chief Complaint: Screening colonoscopy HPI Narrative TEMO WILKES, is a 62 M who presents today for screening colonoscopy. He has a past medical history of type 2 diabetes, rheumatoid arthritis, hyperlipidemia who arrives here for screening colonoscopy. He had a colonoscopy approximately 9 to 10 years ago. He is not having any change in bowel habits. Denies abdominal pain. Denies any cramping. He is not having any chest pain or shortness of breath. He also has a past medical history of mild hypertension is under control with medicines. [facility] Medical History Aneurysm Back pain Blood disorder Blood in stool Cardiology follow-up encounter Cough Diabetes Dietary restriction Essential (primary) hypertension Fatty liver Former smoker Groin abscess High cholesterol History of echocardiogram History of GI bleed History of seizures as a child History of TIA (transient ischemic attack) Hx of colonic polyp Hyperlipidemia Injury of head and neck Leukocytosis Lipoma of forehead Mass of face Nonrheumatic mitral (valve) insufficiency Osteoarthritis Pneumonia Trevor Barrett syndrome (geniculate herpes zoster) Rheumatoid arthritis Rheumatoid arthritis Right trigeminal neuralgia Screening PSA (prostate specific antigen) Stroke Type II diabetes mellitus Wears glasses Home Medications blood sugar diagnostic (FreeStyle Lite Strips) #100 ea 09/09/18 [Rx Last Taken Unknown] blood-glucose meter (FreeStyle Lite Meter kit) #1 ea 09/09/18 [Rx Last Taken Unknown] lancets 28 gauge (FreeStyle Lancets) #200 ea 09/09/18 [Rx Last Taken Unknown] hydroxychloroquine 200 mg tablet 400 mg PO DAILY 10/23/21 [History Last Taken 06/11/23] aspirin 81 mg chewable tablet 81 mg PO BREAKFAST 30 days #30 tabs 06/04/22 [Rx Last Taken 06/09/23] amlodipine 5 mg tablet 5 mg PO DAILY #90 tabs 06/12/22 [Rx Last Taken 06/12/23] atorvastatin 80 mg tablet (Lipitor) 80 mg PO DAILY cholesterol #90 tabs 06/12/22[Rx Last Taken 06/11/23] dapagliflozin propanediol 10 mg tablet (Farxiga) 10 mg PO QAM #90 tabs 06/12/22 [Rx Last Taken 06/11/23] losartan 25 mg tablet 37.5 mg (1.5 x 25 mg) PO DAILY blood pressure 3 months #135 tabs 06/12/22 [Rx Last Taken 06/12/23] metformin 1,000 mg tablet 1,000 mg PO BID diabetes 3 months #180 tabs 06/12/22 [Rx Last Taken 06/09/23] metoprolol tartrate 25 mg tablet 12.5 mg (1/2 x 25 mg) PO BID #90 tabs 06/12/22 [Rx Last Taken 06/11/23] blood pressure monitor (Blood Pressure Kit) #1 ea 07/02/22 [Rx Last Taken Unknown] clopidogrel 75 mg tablet (Plavix) 75 mg PO DAILY #30 tabs 07/09/22 [Rx Last Taken 06/09/23] fenofibrate 54 mg tablet 54 mg PO DAILY #90 tabs 08/20/22 [Rx Last Taken 06/11/23] albuterol sulfate 90 mcg/actuation aerosol inhaler (Ventolin HFA) 2 puff inhalation Q4H PRN PRN Wheezing ##1 11/29/22 [Rx Last Taken Unknown] tirzepatide 7.5 mg/0.5 mL subcutaneous pen injector (Mounjaro) 7.5 mg subcut QWEEK 05/26/23 [History Last Taken 06/11/23] Allergy/AdvReac Type Severity Reaction Status Date / Time everardo seed Allergy Severe Anaphylaxis Verified 06/12/23 06:58 pneumococcal vaccine Allergy Intermediate Rash & Verified 06/12/23 06:58 [From Pneumovax 23] Swelling Family History Sister Diabetes Hypertension High cholesterol blood clots Cardiovascular disease Brother Myocardial infarction High cholesterol Heart disease TIA (transient ischemic attack) Cardiovascular disease Mother Myocardial infarction Hypertension Arthritis History of blood transfusion Heart disease Kidney disease Cardiovascular disease Father High cholesterol CVA (cerebral vascular accident) blood clots Cardiovascular disease Grandmother CVA (cerebral vascular accident) Surgical History History of appendectomy History of excision of lesion History of lymphoid or hematologic neoplasm History of splenectomy History of tonsillectomy Hx of colonoscopy Social History (Updated 05/26/23 @ 14:24 by Coty Lorenzo) housing: house current occupational status: employed 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 @ [employer] Smoking Status: Former smoker Tobacco: How many years used: 18 Electronic Cigarette Use: not used how long ago did patient quit smoking: quit 1994 second hand exposure: Yes (Smoked in the home ) alcohol intake: former year quit: 1994 substance use type: does not use what type of physical activity do you participate in: walking frequency: daily mellisa/faith: Restorationism seatbelt use: always additional social history: does take aspirin does take ibuprofen ROS ROS Narrative General: Denies fever/chills HENT: Frontal headache, denies stuffy nose, denies sore throat EYES: Denies changes in vision Resp: Denies cough, denies shortness of breath Cardiac: Denies chest pain GI: Denies abdominal pain, denies changes in bowel, denies nausea/vomiting : Denies changes in urination Extremity: Denies swelling MSK: Denies weakness Neuro: Denies any further numbness or tingling, had right hand numbness up to mid arm and numbness above upper lip and a mustache distribution Heme: Denies any bleeding or bruising Skin: Denies rashes Psychiatric: No complaints voiced Vital Signs Vital Signs Vital Signs: 06/12/23 07:01 06/12/23 07:01 Temperature 97.4 F L Temperature Source Temporal Pulse Rate 81 Respiratory Rate 16 Respiratory Pattern Normal Blood Pressure 148/73 H Blood Pressure Mean 98 Blood Pressure Source Monitor Blood Pressure Position Semi-Fowlers Blood Pressure Location Right Arm Pulse Ox 99 Oxygen Delivery Method Room Air Weight Weight: 185 lb 3.013 oz Body Mass Index (BMI) 27.3 Physical Exam Narrative General: Alert, oriented, no apparent distress HEENT: Atraumatic, normocephalic Eyes: extraocular movements grossly intact Neck: Supple Respiratory: normal respiratory effort Cardiovascular: no edema appreciated GI: nondistended Extremities: Moving all extremities Neuro: No overt focal neurological deficits Psych: Cooperative Assessment & Plan Assessment/Plan (1) Encounter for screening for malignant neoplasm of colon: PLAN: He was explained alternatives, risk, benefits including not withstanding bleeding, infection, sepsis, perforation, need for emergent surgery and . He will have an ASA of 3. 06/12/23 0732 <Electronically signed by Thomas Little DO> Cosigner Signature (if applicable): CC: TED Mosquera; Thomas Little DO~ Signed [facility] Work Phone: Progress note Author Dr. Romero [facility] June 04, 2022 6:10pm Note Date/Time June 04, 2022 6:1 0pm [facility] Medical Records Department [address] [facility] [place] [address] Progress Note - Hospitalist 06/04/22 180 MR#: [id number] Acct: [id number] Name: TEMO WILKES Rep #:[id number] : 1960 61 From: Krista Romero MD PCP: Dr. Iftikhar Carlos MD Status:A DM JOSÉ LUIS Location: [place] [id number] Reason for Visit Reason for Visit: Diagnoses Other symptoms and signs involving the musculoskeletal system (06/02/22) Unspecified symptoms and signs involving the nervous system (06/02/22) Subjective Subjective Feeling fair today, no numbness or tingling. Objective Data Objective Data Vital Signs: Vital Signs Temp Pulse Resp BP Pulse Ox O2 Del Method 97.8 F 69 17 130/73 H 95 Room Air 06/04/22 14:24 06/04/22 14:24 06/04/22 14:24 06/04/22 14:24 06/04/22 14:24 06/04/22 14:24 Oxygen Delivery Method Room Air Weight: 91.3 kg Body Mass Index (BMI) 29.7 Intake & Output: Intake and Output for Last 24 Hours 06/02/22 06/03/22 06/04/22 23:59 23:59 23:59 Intake Total 1360 / 1360 1000 / 1000 Balance 1360 / 1360 1000 / 1000 Lab / Micro Data Result Diagrams: 06/04/22 04:54 06/04/22 04:54 Labs: Laboratory Results - last 24 hr 06/03/22 13:07: CSF Glucose 82 H, CSF Total Protein 68.0 H 06/03/22 21:57: POC Glucose 175 H 06/04/22 04:54: WBC 13.7 H, RBC 4.44 L, Hgb 13.9, Hct 41.8, MCV 94.1 H, MCH 31.3, MCHC 33.3, RDW Std Deviation 45.9 H, RDW Coeff of Linh 13.4, Plt Count 325,MPV 11.4, Immature Gran % (Auto) 0.400, Neut % (Auto) 40.0 L, Lymph % (Auto) 37.3, Burnet % (Auto) 12.6 H, Eos % (Auto) 8.9 H, Baso % (Auto) 0.8, Absolute Neuts (auto) 5.5, Absolute Lymphs (auto) 5.12 H, Nucleated RBC % 0, DifferentialComment SCANNED, Diff Path Review May , Platelet Estimate ADEQUATE, Plt Morphology Comment LARGE 06/04/22 04:54: PT 12.8, INR 1.0 06/04/22 04:54: Sodium 136, Potassium 4.0, Chloride 107, Carbon Dioxide 24.0, Anion Gap 5, BUN 18, Creatinine 0.60 L, Estim Creat Clear Calc 130.93, Est GFR (MDRD) Af Amer 177, Est GFR (MDRD) Non-Af 146, BUN/Creatinine Ratio 30.1 H, Glucose 129 H, Calcium 9.1 06/04/22 06:16: POC Glucose 139 H 06/04/22 11:40: POC Glucose 138 H 06/04/22 13:07: Fld Polynuclear WBCs # 0.000, Fld Polynuclear WBCs % 0.0, Fluid Mononuclear WBCs 0.004, Fld Mononuclear WBCs % 100.0, CSF Appearance CLEAR, CSF Color COLORLESS, CSF WBC 0.004, CSF RBC 43 H, CSF Cell Count Tube # 3, CSF TotalCell Counted 0.005, CSF Neutrophils 4, CSF Lymphocytes 82 H, CSF Monocytes 14 L,CSF Comment May follow 06/04/22 17:12: POC Glucose 151 H Radiography Diagnostic Testing: Radiology Impression Lumbar Puncture Fluoroscopy 06/03/22 13:00 IMPRESSION: Successful fluoroscopic-guided lumbar puncture. Electronically Signed: Guerrero Torres MD at 13:47 EDT , Echocardiogram 06/03/22 19:05 Interpretation Summary Normal LV size. Left ventricular systolic function is normal. The estimated ejection fraction is 60 %. Stage 1 diastolic dysfunction. Contrast injection was performed. Ordering Physician: Krista Romero Referring Physician: Iftikhar Carlos Performed By: Rosy Mcclellan RCS Physical Exam Narrative General: Alert, oriented, no apparent distress HEENT: Atraumatic, normocephalic Eyes: extraocular movements grossly intact Neck: Supple Respiratory: normal respiratory effort Cardiovascular: no edema appreciated GI: nondistended Extremities: Moving all extremities Neuro: No overt focal neurological deficits Psych: Cooperative Assessment & Plan Assessment/Plan (1) Right hand weakness: PLAN: Plan #Right hand and perioral numbness -NIH 0, symptoms resolved and now presently has headache and nonfocal exam/no other complaints -Admit to tele -CT head without acute changes -CTA head and neck -MRI -NIH q4hr -asa 324 given, 81 daily, statin 80 mg -Echo w/ bubble study -PT/OT/Speech eval -Lipid panel in the a.m. -Hold BP medications to allow for permissive hypertension for 24 hours unless SBP greater than 220 or DBP greater than 120 or until stroke is ruled out -Lovenox for DVT prophylaxis -06/03: Spoke with neurologist who queries seizures and does not think these are TIAs given his history of similar presentation several times over several years and history of petit mall seizures when he was younger. However with the aneurysm and the headache that he had on presentation she recommends an LP with a cell count of tube 1 and tube 4 to assess for red cells. If positive would indicate aneurysm had blood on admission and he needs transferred for inpatient vascular neurology and if negative can follow-up with vascular neurology outpatient as well as his neurologist Dr. Lozano. Additionally she has high suspicion for seizures, recommended against medication at this time and orderingof an EEG. If EEG is positive begin Keppra, if both EEG and LP are negative sherecommends aspirin 81 mg and discharging home with prescription for Keppra 500 mg twice daily that he is not supposed to take unless he has symptoms again. Ifsymptoms recur he is supposed to start the medication and call his neurologist for a long EEG. She also advised no driving at this time. Additional studies for cytology and flow cytometry with LP. EEG and LP ordered -06/04: EEG with mild slowing, LP with 43 RBC, glucose 82, total protein 68. Awaiting callback from neurology to discuss results and dispo to assess if thereshould be threshold of concern given LP and EEG that necessitate escalating careversus discharge #Type 2 diabetes mellitus -Glucose checks and sliding scale insulin #DVT ppx: SCDs Krista Romero MD Time spent in the patient's overall evaluation,decision-making process, review of diagnostic data, adjustment of management, discussion with other providers, nursing nursing and ancillary staff involved in patient's care documentation, 30minutes Charges/Coding Visit Charges Inpatient E&M: 82005 Subs Hosp L2 06/04/22 1810 <Electronically signed by Krista Romero MD> Cosigner Signature (if applicable): CC: ~ Signed [facility] Work Phone: Reason for referral (narrative)* Outpatient Procedure (Routine) - Pending Review Specialty Diagnoses / Procedures Referred By Contac t Referred To Contact NEUROLOGICAL CLARISSA Diagnoses Altered awareness, transient Procedures EPIL EEG LONG EEG EXTENDED MONITORING 61-119 MINUTES ELECTROENCEPHALOGRAM REC COMA/SLEEP ONLY Raina Esquivel APRN.CNP [address] [place] [address] [facility] [address] [place] [address] Referral ID Status Reason Start Date Expiration Date Visits Requested Visits Authorized [id number] Pending Review Auto-Generat ed Referral 10/17/2022 10/18/2023 1 1 [facility] for referral (narrative)No reason for referral information availableWCleveland Clinic [facility] Work Phone: Summary Purpose Family History No Family History Records Found Relationship Condition Age at Onset Recorded Date/T mikala sister Diabetes mellitus Unknown Hypertension Unknown High blood cholesterol Unknown Unknown Cardiovascular disease Unknown brother Myocardial infarction Unknown Cardiac disease Unknown Transient ischemic attack Unknown mother Myocardial infarction Unknown Arthritis Unknown History of blood transfusion Unknown Kidney disorder Unknown father High blood cholesterol Unknown Cerebrovascular accident (CVA) Unknown grandmother Cerebrovascular accident (CVA) Unknown Advance Directives No Advanced Directives Records Found Advance Directive Response Recorded Date/ Time Living Will No June 28, 2021 2:34pm Power of Staple Cutter No June 28 2:34pm Advance Directive Response Recorded Date/ Time Living Will No June 28, 2021 1:34pm Power of Staple Cutter No June 28 1:34pm Advance Directive Response Recorded Date/ Time Living Will No June 02, 2022 5:25pm Power of Staple Cutter No June 02 5:25pm Advance Directive Response Recorded Date/ Time Living Will No June 02, 2022 8:16pm Power of Staple Cutter No June 02 8:16pm Advance Directive Response Recorded Date/ Time Living Will No November 29, 2022 8:53pm Power of Staple Cutter No November 8:53pm Advance Directive Response Recorded Date/ Time Living Will No November 29, 2022 7:53pm Power of Staple Cutter No November 7:53pm Advance Directive Response Recorded Date/ Time Living Will No June 11, 2023 9:50am Power of Staple Cutter No June 10 9:50am Chief Complaint and Reason for Visit Chief Complaint SOB sick 2 W FU Reason for Visit Cough Diarrhea Sore throat Essential (primary) hypertension Type II diabetes mellitus Essential (primary) hypertension Type II diabetes mellitus Chief Complaint 3 M FU SINUS CONGESTION, COUGH Reason for Visit Rheumatoid arthritis Essential (primary) hypertension Type II diabetes mellitus Sore throat URI (upper respiratory infection) Chief Complaint SINUS CONGESTION, CO UGH follow up Reason for Visit Sore throat URI (upper respiratory infection) Essential (primary) hypertension Type II diabetes mellitus URI (upper respiratory infection) Chief Complaint follow up SORE THROAT/MUSCLE ACHES Reason for Visit Essential (primary) hypertension Type II diabetes mellitus URI (upper respiratory infection) URI (upper respiratory infection) Body aches Chief Complaint follow up SORE THROAT/MUSCLE ACHES NEURO SX, R/O TIA Reason for Visit Essential (primary) hypertension Type II diabetes mellitus URI (upper respiratory infection) URI (upper respiratory infection) Body aches Right hand weakness Chief Complaint follow up SORE THROAT/MUSCLE ACHES NEURO SX, R/O TIA NEURO SX, R/O TIA NEURO SX, R/O TIA Reason for Visit Essential (primary) hypertension Type II diabetes mellitus URI (upper respiratory infection) URI (upper respiratory infection) Body aches Right hand weakness Chief Complaint SORE THROAT/MUSCLE A CHES NEURO SX, R/O TIA NEURO SX, R/O TIA NEURO SX, R/O TIA HOSPITAL[facility]TIA [facility] FU NEURO Reason for Visit URI (upper respirato ry infection) Body aches Right hand weakness Essential (primary) hypertension Hx-TIA (transient ischemic attack) Type II diabetes mellitus Chief Complaint NEURO FU TO ER VISIT TIA 3 m fu Reason for Visit Anticardiolipin anti body positive Transient ischemic attack Hx-TIA (transient ischemic attack) Blood in stool Essential (primary) hypertension Hyperlipidemia Type II diabetes mellitus Chief Complaint 3 m fu BACK COVID TEST general illness Reason for Visit Blood in stool Essential (primary) hypertension Hyperlipidemia Type II diabetes mellitus Chief Complaint HRA DYPSNEA Chief Complaint DYPSNEA Amb Documentation Reason for Visit Encounter for screen ing for malignant neoplasm of colon Chief Complaint Admit Date HIP PAIN RIGHT April 27, 2024 3:56pm LABS July 29, 2024 12:14 pm Chief Complaint Admit Date HIP PAIN RIGHT April 27, 2024 3:56pm LABS July 29, 2024 12:14 pm NONRUPTURED CEREBRAL ANEURYSM August 03, 2024 1:30pm Reason for Referral Specialty Diagnoses / Procedures Referred By Tonie barrios Referred To Contact Ent - Otolaryngology Diagnoses Abnormal MRI of head Procedures CONSULT TO ENT OFFICE/OUTPATIENT [facility] 60-74 MINUTES Jase Gibson, ANGEL.CHEMICAL EQUIPMENT CONTROLLER [address] [place] [address] Referral ID Status Reason Start Date Expiration Date Visits Requested Visits Authorized [id number] Authorized PCP Requested Referral 08/22/2022 08/22/2023 1 1 Specialty Diagnoses / Procedures Referred By Tonie barrios Referred To Contact Procedures HEARING TEST/AUDIOGRAM COMPRE AUDIOMETRY THRESHOLD EVAL SP RECOGNIJ Gogo Kim, AUD [address] [place] [address] [facility] [address] [place] [address] Referral ID Status Reason Start Date Expiration Date Visits Requested Visits Authorized [id number] Pending Review Auto-Generat ed Referral 11/08/2022 11/09/2023 1 1 Specialty Diagnoses / Procedures Referred By Tonie barrios Referred To Contact Diagnoses 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 hearing of left ear Procedures HEARING TEST/AUDIOGRAM COMPRE AUDIOMETRY THRESHOLD EVAL SP RECOGNIJ Arcenio Manuel MD [address] [place] [address] [facility] [address] [place] [address] Referral ID Status Reason Start Date Expiration Date Visits Requested Visits Authorized [id number] Authorized Auto-Generat ed Referral 12/02/2022 03/02/2023 1 1 Specialty Diagnoses / Procedures Referred By Tonie barrios Referred To Contact MR IMAGING Diagnoses 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 hearing of left ear Procedures MRI BRAIN WO/W IVCON MRI BRAIN BRAIN STEM W/O W/CONTRAST MATERIAL Arcenio Manuel MD [address] [place] [address] [facility] [place] [address] Referral ID Status Reason Start Date Expiration Date Visits Requested Visits Authorized [id number] Pending Review Auto-Generat ed Referral 06/02/2023 01/01/2024 1 1 Additional Source Comments (unrecognized sect ion and content) No Status Records FoundNo Status Records FoundNo Status Records FoundNo Status Records FoundNo Status Records FoundNo Status Records FoundNo Status Records FoundNo Status Records FoundNo Status Records Found INFORMATION SOURCE (unrecogn ized section and content) DATE CREATED AUTHOR 08/28/2017 [facility] DATE CREATED AUTHOR AUTHOR'S ORGANIZ ATION 09/27/2017 [facility] DATE CREATED AUTHOR AUTHOR'S ORGANIZ ATION 06/12/2018 [facility] DATE CREATED AUTHOR AUTHOR'S ORGANIZ ATION 07/06/2018 [facility] DATE CREATED AUTHOR AUTHOR'S ORGANIZ ATION 05/09/2020 [facility] DATE CREATED AUTHOR AUTHOR'S ORGANIZ ATION 08/30/2024 [facility] DATE CREATED AUTHOR AUTHOR'S ORGANIZ ATION 09/03/2024 [facility] DATE CREATED AUTHOR AUTHOR'S ORGANIZ ATION 10/26/2024 [facility] DATE CREATED AUTHOR AUTHOR'S ORGANIZ ATION 10/28/2024 [facility] l Goals (unrecognized section and content) Goals may be documented in a n alternate sectionGoals may be documented in an alternate sectionGoals may be documented in an alternate sectionGoals may be documented in an alternate sectionGoals may be documented in an alternate sectionGoals may be documented in an alternate sectionGoals may be documented in an alternate sectionGoals may be documented in an alternate sectionGoals may be documented in an alternate sectionGoals may be documented in an alternate section Care Teams (unrecognized sec tion and content) Team Status: Active Member Role Status Dates Dr. Iftikhar Carlos MD Family Provider Active Dr. Iftikhar Carlos MD Primary Care Provider Active Team Status: Inactive Member Role Status Dates Dr. Iftikhar Carlos MD Primary Care Provider, Refer ring Provider Active Gonzales Mosquera PLAYERS [employer] REPRESENTATIVE, PLAY[employer]UB REPRESENTATIVE-C Attending Provider Active Team Status: Inactive Member Role Status Dates Dr. Iftikhar Carlos MD Primary Care Provider Active Gonzales Mosquera [employer] REPRESENTATIVE, [employer] REPRESENTATIVE-C Attending Provider, Referring Prov ider Active Team Status: Active Member Role Status Dates Dr. Iftikhar Carlos MD Primary Care Provider Active Dr. Lyndon Winston DO Emergency Provider Active Dr. Krista Romero MD Admit Provider, Attending Provid er Active Team Status: Active Member Role Status Dates Dr. Iftikhar Carlos MD Primary Care Provider Active Dr. Lyndon Winston DO Emergency Provider Active Dr. Krista Romero MD Admit Provider, At tending Provider, Other Provider Active Team Status: Active Member Role Status Dates Dr. Iftikhar Carlos MD Primary Care Provider Active Dr. Pantera Fairbanks MD Attending Provider Active Team Status: Inactive Member Role Status Dates Dr. Iftikhar Carlos MD Primary Care Provider Active Dr. Lyndon Winston DO Emergency Provider Active Dr. Krista Romero MD Admit Provider, Attending Provid er Active Foundry Engineer Relationship Specialty Start Date End Date Macario Tyler [address] [facility] [place] [address] PCP - General Family Medicine 11/07/16 Krista Romero MD NI Referring Team Internal Medicine 06/05/22 Foundry Engineer Relationship Specialty Start Date End Date Macario Tyler [address] [facility] [place] [address] PCP - General Family Medicine 11/07/16 Krista Romero MD NI Referring Team Internal Medicine 06/05/22 Foundry Engineer Relationship Specialty Start Date End Date Macario Tyler [address] [facility] [place] [id number] PCP - General Family Medicine 11/07/16 Krista Romero MD NI Referring Team Internal Medicine 06/05/22 Team Status: Inactive Member Role Status Dates Dr. Iftikhar Carlos MD Primary Care Provider, Refer ring Provider Active Dr. Obi Lozano MD Attending Provider Active Team Status: Inactive Member Role Status Dates Dr. Iftikhar Carlos MD Primary Care P guerda, Attending Provider, Referring Provider Active Team Status: Inactive Member Role Status Dates Dr. Iftikhar Carlos MD Primary Care Provider Active Dr. Tutu Jones DO Emergency Provider Active Foundry Engineer Relationship Specialty Start Date End Date Gonzales Mosquera [address] [place] [address] PCP - General 06/28/22 Krista Romero MD NI Referring Team Internal Medicine 06/05/22 Foundry Engineer Relationship Specialty Start Date End Date Gonzales Mosquera [address] [place] [address] PCP - General 06/28/22 Krista Romero MD NI Referring Team Internal Medicine 06/05/22 Foundry Engineer Relationship Specialty Start Date End Date Gonzales Mosquera [address] [place] [address] PCP - General 06/28/22 Krista Romero MD NI Referring Team Internal Medicine 06/05/22 Foundry Engineer Relationship Specialty Start Date End Date Gonzales Mosquera [address] [place] [address] PCP - General 06/28/22 Krista Romero MD NI Referring Team Internal Medicine 06/05/22 Team Status: Active Member Role Status Dates Dr. Iftikhar Carlos MD Primary Care Provider Active Dr. Yefri Bear MD Attending Provider Active Dr. Obi Lozano MD Referring Provider Active Team Status: Inactive Member Role Status Dates Dr. Iftikhar Carlos MD Primary Care Provider Active Dr. Tutu Jones DO Attending Provider, Emergency Pro vider Active Team Status: Inactive Member Role Status Dates Dr. Iftikhar Carlos MD Primary Care Provider Active Dr. Obi Lozano MD Attending Provider, Referring Provider Active Team Status: Inactive Member Role Status Dates Dr. Iftikhar Carlos MD Primary Care Provider, Atten ding Provider Active Foundry Engineer Relationship Specialty Start Date End Date Gonzales Mosquera MD [address] [facility], [place] [id number] PCP - General 06/28/22 Krista Romero MD NI Referring Team Internal Medicine 06/05/22 Team Status: Inactive Member Role Status Dates Dr. Iftikhar Carlos MD Primary Care Provider, Refer ring Provider Active T[facility] Hill Attending Provider Active Team Status: Inactive Member Role Status Dates Dr. Iftikhar Carlos MD Primary Care Provider Active Dr. Armani White MD Emergency Provider Active Team Status: Inactive Member Role Status Dates Dr. Iftikhar Carlos MD Primary Care Provider Active Dr. Bertin Molina DO Attending Provider, Emergency P rovider Active Foundry Engineer Relationship Specialty Start Date End Date Gonzales Mosquera MD [address] [facility], [place] [id number] PCP - General 06/28/22 Krista Romero MD NI Referring Team Internal Medicine 06/05/22 Team Status: Active Member Role Status Dates Dr. Iftikhar Carlos MD Family Provider Active Gonzales Mosquera VSC, [employer] REPRESENTATIVE-C Primary Care Provider Active Team Status: Active Member Role Status Dates Gonzales Mosquera VSC, [employer] REPRESENTATIVE-C Primary Care Provider Active Health Risk Assessment Attending Provider, Referring P rovider Active Team Status: Inactive Member Role Status Dates Gonzales Mosquera VSC, PLAY[employer] REPRESENTATIVE-C Primary Care Provid er, Attending Provider, Referring Provider Active Team Status: Active Member Role Status Dates Gonzales Mosquera VSC, PLAY[employer] REPRESENTATIVE-C Primary Care Provider Active [facility] Attending Provider Active Team Status: Active Member Role Status Dates Gonzales Mosquera VSC, PLAY[employer] REPRESENTATIVE-C Primary Care Provider Active Dr. Thomas Little DO Attending Provid er, Referring Provider, Other Provider Active Team Status: Inactive Member Role Status Dates Gonzales Mosquera VSC, PLAY[employer] REPRESENTATIVE-C Primary Care Provider Active Dr. Thomas Little DO Attending Provider, Referring Provider Active Foundry Engineer Relationship Specialty Start Date End Date Gonzales Mosquera MD [address] [facility], [place] [id number] PCP - General 06/28/22 Krista Romero MD NI Referring Team Internal Medicine 06/05/22 Foundry Engineer Relationship Specialty Start Date End Date Gonzales Mosquera MD [address] [place], [place] [id number] PCP - General 06/28/22 Krista Romero MD NI Referring Team Internal Medicine 06/05/22 Team Status: Active Member Role Status Dates Gonzales Francisco Javier VSC, PLAY[employer] REPRESENTATIVE-C Primary Care Provider Active Team Status: Inactive Member Role Status Dates Gonzales Francisco Javier VSC, PLAY[employer] REPRESENTATIVE-C Primary Care Provider Active Start: April 27, 2024 End: April 27, 2024 Gonzales Mosquera VSC, PLAY[employer] REPRESENTATIVE-C Attending Provider Active S tart: April 27, 2024 End: April 27, 2024 Gonzales Mosquera VSC, PLAY[employer] REPRESENTATIVE-C Referring Provider Active S tart: April 27, 2024 End: April 27, 2024 Team Status: Inactive Member Role Status Dates Gonzales Francisco Javier VSC, PLAY[employer] REPRESENTATIVE-C Primary Care Provider Active Start: July 29, 2024 End: July 29, 2024 Dr. Luis Valladares MD Attending Provider Active Start: July 29, 2024 End: July 29, 2024 Dr. Luis Valladares MD Referring Provider Active Start: July 29, 2024 End: July 29, 2024 Team Status: Inactive Member Role Status Dates Gonzales Mosquera VSC, PLAY[employer] REPRESENTATIVE-C Primary Care Provider Active Start: August 03, 2024 End: August 03, 2024 SCOTT LAURENT Attending Provider Active Start : August 03, 2024 End: August 03, 2024 SCOTT LAURENT Referring Provider Active Start : August 03, 2024 End: August 03, 2024 Foundry Engineer Relationship Specialty Start Date End Date Gonzales Mosquera MD [address] [place] [place], [place] [address] PCP - General 06/28/22 Krista Romero MD NI Referring Team Internal Medicine 06/05/22 Foundry Engineer Relationship Specialty Start Date End Date Gonzales Mosquera MD [address] [place] [place], [place] [id number] PCP - General 06/28/22 Krista Romero MD NI Referring Team Internal Medicine 06/05/22 Foundry Engineer Relationship Specialty Start Date End Date Gonzales Mosquera MD [address] [place] [address] PCP - General 06/28/22 Krista Romero MD NI Referring Team Internal Medicine 06/05/22 Foundry Engineer Relationship Specialty Start Date End Date Gonzales Mosquera MD [address] [place] [address] PCP - General 06/28/22 Krista Romero MD NI Referring Team Internal Medicine 06/05/22 Foundry Engineer Relationship Specialty Start Date End Date Gonzales Mosquera MD [address] [place] [address] PCP - General 06/28/22 Krista Romero MD NI Referring Team Internal Medicine 06/05/22 Foundry Engineer Relationship Specialty Start Date End Date Gonzales Mosquera MD [address] [place] [address] PCP - General 06/28/22 Krista Romero MD NI Referring Team Internal Medicine 06/05/22 Source Comments (unrecognize d section and content) In the event this informatio n is protected by the Federal Confidentiality of Alcohol and Drug Abuse Patient Records regulations: The Federal rules restrict any use of the information to criminally investigate or prosecute any alcohol or drug abuse patient.[facility] CenterIn the event this information is protected by the Federal Confidentiality of Alcohol and Drug Abuse Patient Records regulations: The Federal rules restrict any use of the information to criminally investigate or prosecute any alcohol or drug abuse patient.[facility] CenterIn the event this information is protected by the Federal Confidentiality of Alcohol and Drug Abuse Patient Records regulations: The Federal rules restrict any use of the information to criminally investigate or prosecute any alcohol or drug abuse patient.[facility] CenterIn the event this information is protected by the Federal Confidentiality of Alcohol and Drug Abuse Patient Records regulations: The Federal rules restrict any use of the information to criminally investigate or prosecute any alcohol or drug abuse patient.[facility] CenterIn the event this information is protected by the Federal Confidentiality of Alcohol and Drug Abuse Patient Records regulations: The Federal rules restrict any use of the information to criminally investigate or prosecute any alcohol or drug abuse patient.[facility] CenterIn the event this information is protected by the Federal Confidentiality of Alcohol and Drug Abuse Patient Records regulations: The Federal rules restrict any use of the information to criminally investigate or prosecute any alcohol or drug abuse patient.[facility] CenterIn the event this information is protected by the Federal Confidentiality of Alcohol and Drug Abuse Patient Records regulations: The Federal rules restrict any use of the information to criminally investigate or prosecute any alcohol or drug abuse patient.[facility] CenterIn the event this information is protected by the Federal Confidentiality of Alcohol and Drug Abuse Patient Records regulations: The Federal rules restrict any use of the information to criminally investigate or prosecute any alcohol or drug abuse patient.[facility] CenterIn the event this information is protected by the Federal Confidentiality of Alcohol and Drug Abuse Patient Records regulations: The Federal rules restrict any use of the information to criminally investigate or prosecute any alcohol or drug abuse patient.[facility] CenterIn the event this information is protected by the Federal Confidentiality of Alcohol and Drug Abuse Patient Records regulations: The Federal rules restrict any use of the information to criminally investigate or prosecute any alcohol or drug abuse patient.[facility] CenterIn the event this information is protected by the Federal Confidentiality of Alcohol and Drug Abuse Patient Records regulations: The Federal rules restrict any use of the information to criminally investigate or prosecute any alcohol or drug abuse patient.[facility] CenterIn the event this information is protected by the Federal Confidentiality of Alcohol and Drug Abuse Patient Records regulations: The Federal rules restrict any use of the information to criminally investigate or prosecute any alcohol or drug abuse patient.[facility] CenterIn the event this information is protected by the Federal Confidentiality of Alcohol and Drug Abuse Patient Records regulations: The Federal rules restrict any use of the information to criminally investigate or prosecute any alcohol or drug abuse patient.[facility] CenterIn the event this information is protected by the Federal Confidentiality of Alcohol and Drug Abuse Patient Records regulations: The Federal rules restrict any use of the information to criminally investigate or prosecute any alcohol or drug abuse patient.[facility] CenterIn the event this information is protected by the Federal Confidentiality of Alcohol and Drug Abuse Patient Records regulations: The Federal rules restrict any use of the information to criminally investigate or prosecute any alcohol or drug abuse patient.[facility] CenterIn the event this information is protected by the Federal Confidentiality of Alcohol and Drug Abuse Patient Records regulations: The Federal rules restrict any use of the information to criminally investigate or prosecute any alcohol or drug abuse patient.[facility] CenterIn the event this information is protected by the Federal Confidentiality of Alcohol and Drug Abuse Patient Records regulations: The Federal rules restrict any use of the information to criminally investigate or prosecute any alcohol or drug abuse patient.[facility] CenterIn the event this information is protected by the Federal Confidentiality of Alcohol and Drug Abuse Patient Records regulations: The Federal rules restrict any use of the information to criminally investigate or prosecute any alcohol or drug abuse patient.[facility] CenterIn the event this information is protected by the Federal Confidentiality of Alcohol and Drug Abuse Patient Records regulations: The Federal rules restrict any use of the information to criminally investigate or prosecute any alcohol or drug abuse patient.[facility] CenterIn the event this information is protected by the Federal Confidentiality of Alcohol and Drug Abuse Patient Records regulations: The Federal rules restrict any use of the information to criminally investigate or prosecute any alcohol or drug abuse patient.[facility] CenterIn the event this information is protected by the Federal Confidentiality of Alcohol and Drug Abuse Patient Records regulations: The Federal rules restrict any use of the information to criminally investigate or prosecute any alcohol or drug abuse patient.[facility] CenterIn the event this information is protected by the Federal Confidentiality of Alcohol and Drug Abuse Patient Records regulations: The Federal rules restrict any use of the information to criminally investigate or prosecute any alcohol or drug abuse patient.[facility] CenterIn the event this information is protected by the Federal Confidentiality of Alcohol and Drug Abuse Patient Records regulations: The Federal rules restrict any use of the information to criminally investigate or prosecute any alcohol or drug abuse patient.[facility] CenterIn the event this information is protected by the Federal Confidentiality of Alcohol and Drug Abuse Patient Records regulations: The Federal rules restrict any use of the information to criminally investigate or prosecute any alcohol or drug abuse patient.[facility] Reason for Visit (unrecogniz ed section and content) Reason Comments Future Appointment [place], [place] Reason Comments Electronic Communication Received mis m edical records from [facility] Reason Comments New Patient Headaches Low grade headaches Reason Comments Unruptured Aneurysm Reason Comments Request Outside Medical Records Requesti ng Imaging from [facility]. Reason Comments Appointment Reason Comments Future Appointment [place], Any Reason Comments Future Appointment Specialty Diagnoses / Procedures Referred By Contac t Referred To Contact Diagnoses Sensorineural hearing loss, bilateral Procedures HEARING TEST/AUDIOGRAM COMPRE AUDIOMETRY THRESHOLD EVAL SP RECOGNIJ Gonzales Mosquera MD [address] [place] [address] [place] [address] Phone: [phone] Referral ID Status Reason Start Date Expiration Date Visits Requested Visits Authorized [id number] Outside PCP [employer] andi Referral Patient Cleared - Admin/Chair man/Directo r advise to proceed or did not respond 10/03/2022 01/01/2023 1 1 Reason Comments Ear Problem NEW... Radha Gibson APRN.[employer]MENT CONTR[employer]ER. schwannoma rt ear, occasional ringing lt ear, difficulty hearing, MRI completed, audiogram, hx brain aneurysm. Denies otalgia, otorrhea. Plavix, doxycycline, prednisone Specialty Diagnoses / Procedures Referred By Tonie t Referred To Contact Ent - Otolaryngology Diagnoses Abnormal MRI of head Procedures CONSULT TO ENT OFFICE/OUTPATIENT NEW HIGH MDM 60-74 MINUTES Jase Gibson, CNC SPECIALIST.[employer] EQUIPMENT CONTROLLER [address] [place] [address] Referral ID Status Reason Start Date Expiration Date V isits Requested Visits Authorized [id number] Closed PCP Requested Referral 08/22/2022 08/22/2023 1 1 Reason Comments Patient Update patient states he fo und out 3 weeks ago he has prostate cancer and has to have surgery, patient states he will have Dr. Valladares fax over medical clearance form. Reason Comments Orders Reason Comments Results Reason Comments Results Imaging Report Reason Comments Established Patient Reason Comments error Reason Comments Procedure Dx angiogram to eval uate ACOM aneurysm Reason Comments Radiology Pre Procedure Instructions FOR RECORDS PERTAINING TO PATIENTS WHO ARE OR HAVE BEEN ENROLLED IN A CHEMICAL DEPENDENCY/SUBSTANCEABUSE PROGRAM, SOME INFORMATION MAY BE OMITTED. This clinical summary was aggregated from multiple sources. Caution should be exercised in using it in the provision of clinical care. This summary normalizes information from multiple sources, and as a consequence, information in this document may materially change the coding, format and clinical context of patient data. In addition, data may be omitted in some cases. CLINICAL DECISIONS SHOULD BE BASED ON THE PRIMARY CLINICAL RECORDS. [employer] provides no warranty or guarantee of the accuracy or completeness of information in this document.
[2025-02-26 12:06] LABS: PSA,Total- Diagnostic 0.04 ng/mL (0.00-4.00)
== END | disposition home or self-care (01) ==
LOC: LAB 10:49
PROVIDERS: PCP Nurse Practitioner Family; Referring Provider Urology; Visit Provider Urology
DX: C61 Malignant neoplasm of prostate (principal)
CPT/HCPCS: 84153